=== PATIENT | male | born 1935 | race Caucasian/White ===

== ENCOUNTER → 2016-05-23 | Outpatient (CLI) | payer MEDICARE ==
[2016-05-23 07:11] LABS: Calcium 9.6 mg/dL (8.4-10.2); Potassium 4.9 mmol/L (3.5-5.1); Total Bilirubin 0.8 mg/dL (0.2-1.3); Total Protein 7.4 g/dL (6.3-8.2)
== END | disposition home or self-care (01) ==
LOC: LABWHC1 06:30
PROVIDERS: ATTEND Internal Medicine Interventional Cardiology
DX: E78.2 Mixed hyperlipidemia (principal)
CPT/HCPCS: 36415; 80053; 80061

== ENCOUNTER 2017-01-09 06:31 | Day surgery (SDC) | payer MEDICARE ==
[2017-01-02 15:39] VITALS: BMI 25.7
[~2017-01-09 06:31] MED LIST: DEXAMETHASONE SOD PHOSPHATE 10 MG/ML 1 ML VIAL IV ONE; HEPARIN SODIUM,PORCINE 5,000 UNIT/ML 1 ML VIAL SQ ONE; HYDROmorphone 0.5 MG/0.5 ML SYRINGE IVP PRN; HYDROmorphone 1 MG/ML 1 ML SYRINGE IVP PRN; LACTATED RINGERS 1,000 ML IV SCH; LIDOCAINE 1% 20 ML VIAL (10MG/ML) FOR IV START INTRADERMA PRN; ONDANSETRON 4 MG/2 ML VIAL IVP ONE; ceFAZolin 2 GM in SODIUM CHLORIDE 0.9% 100 ML IVPB ONE
[2017-01-09] MEDS ORDERED: LIDOCAINE 1% 20 ML VIAL (10MG/ML) FOR IV START INTRADERMA ONE (07:20)
[2017-01-09] MEDS ORDERED: MIDAZOLAM 2 MG/2 ML VIAL ONE (08:16)
[2017-01-09] MEDS ORDERED: ePHEDrine SULFATE/0.9% NACL/PF 50 MG/5 ML SYRINGE IV ONE (08:16)
[2017-01-09] MEDS ORDERED: SUCCINYLCHOLINE CHLORIDE 100 MG/5 ML SYR IV ONE (08:16)
[2017-01-09] MEDS ORDERED: PROPOFOL 10 MG/ML 20 ML VIAL IV ONE (08:16)
[2017-01-09] MEDS ORDERED: fentaNYL (PF) 50 MCG/ML 2 ML AMP ONE (08:16)
[2017-01-09] MEDS ORDERED: BUPIVACAINE (PF) 0.25% 30 ML VIAL SQ ONE ×2 (08:43→09:35)
[2017-01-09] MEDS ORDERED: LACTATED RINGERS 1,000 ML IV ONE (09:35)
[2017-01-09 09:54] VITALS: TEMP 96.8
[2017-01-09] MEDS ORDERED: ONDANSETRON 4 MG/2 ML VIAL IVP ONE (09:54)
[2017-01-09] MEDS ORDERED: NALOXONE 0.4 MG/ML 1 ML VIAL IV PRN (09:58)
[2017-01-09] MEDS ORDERED: HYDROcodone/APAP 5-325MG 1 EACH TAB PO PRN (09:58)
--- NOTE | 2017-01-09 10:01 | P.OP ---
Date of Procedure: 01/09/17 Procedure(s) Performed: PREOPERATIVE DIAGNOSIS: Left inguinal hernia POSTOPERATIVE DIAGNOSIS: Same PROCEDURE: Left inguinal hernia repair with mesh SURGEON: Jaylen EBL: Minimal ANESTHESIA: General COMPLICATIONS: None OPERATIVE PROCEDURE: Patient was placed in the operating table in the supine position and placed under general anesthesia. An oblique incision was made in the left groin. Dissection down through the subcutaneous tissues took place using electrocautery. The external oblique fascia was incised using a scalpel. This opening was lengthened using the Metzenbaum scissors. The spermatic cord was encircled with a Jewel drain. The structures were identified and preserved. Careful dissection revealed an indirect hernia sac. This was carefully dissected back to the internal inguinal ring. The patient also had 2 lipomas that were dissected back to the internal ring and ligated. The hernia sac was opened. This was a sliding hernia with the sigmoid colon adherent to the wall. This was able to be lysed using sharp dissection and reduced back into the peritoneal cavity. At that time the hernia sac was ligated using 2 separate 0 silk stick tie sutures. A 3" x 6" Prolene mesh was cut to fit on the exposed fascia. This was sutured to the pubic tubercle the folding edge of the inguinal ligament and the conjoined tendon. A slit was created in the mesh and the mesh was wrapped around the spermatic cord and sutured back to itself. The external oblique was then reapproximated using a running 2-0 Vicryl suture. The subcutaneous tissues were reapproximated using a 3-0 Vicryl sutures. The skin was closed using 4-0 Monocryl sutures. Steri-Strips and sterile dressings were then applied. DISPOSITION: Stable to recovery room
[2017-01-09] MEDS ORDERED: HYDROcodone/APAP 5-325MG 1 EACH TAB PO ONE (11:03)
[2017-01-09 11:23] VITALS: RESP 18
[2017-01-09 12:38] VITALS: BP 150/70; PULSE 74
== END 2017-01-09 12:36 | disposition home or self-care (01) ==
LOC: OR 06:31
PROVIDERS: ATTEND Surgery
DX: K40.90 Unilateral inguinal hernia, without obstruction or gangrene, not specified as recurrent (principal); D17.6 Benign lipomatous neoplasm of spermatic cord; Z72.0 Tobacco use; E55.9 Vitamin D deficiency, unspecified; I13.10 Hypertensive heart and chronic kidney disease without heart failure, with stage 1 through stage 4 chronic kidney disease, or unspecified chronic kidney disease; N18.9 Chronic kidney disease, unspecified; J44.9 Chronic obstructive pulmonary disease, unspecified; E78.5 Hyperlipidemia, unspecified; Z95.5 Presence of coronary angioplasty implant and graft; Z79.899 Other long term (current) drug therapy
CPT/HCPCS: 88302; 49525; 55520; C1781; J2250; J1644; J1100; J0690; J2405; J3010; J0330; J2704

== ENCOUNTER → 2017-02-06 | Outpatient (CLI) | payer MEDICARE ==
[2017-02-06 07:48] LABS: Calcium 9.6 mg/dL (8.4-10.2); Potassium 4.8 mmol/L (3.5-5.1); Total Bilirubin 0.7 mg/dL (0.2-1.3); Total Protein 7.1 g/dL (6.3-8.2)
== END | disposition home or self-care (01) ==
LOC: LABWHC1 06:41
PROVIDERS: ATTEND Internal Medicine Interventional Cardiology
DX: E78.2 Mixed hyperlipidemia (principal)
CPT/HCPCS: 36415; 80053; 80061

== ENCOUNTER → 2017-11-26 | Outpatient (CLI) | payer MEDICARE ==
[2017-11-26 07:46] LABS: Albumin 4.4 g/dL (3.5-5.0); Calcium 9.6 mg/dL (8.4-10.2); Potassium 4.6 mmol/L (3.5-5.1); Total Bilirubin 0.7 mg/dL (0.2-1.3); Total Protein 6.8 g/dL (6.3-8.2)
== END | disposition home or self-care (01) ==
LOC: LABWHC1 06:36
PROVIDERS: ATTEND Internal Medicine Interventional Cardiology
DX: E78.2 Mixed hyperlipidemia (principal)
CPT/HCPCS: 36415; 80053; 80061

== ENCOUNTER → 2018-07-23 | Outpatient (CLI) | payer MEDICARE ==
[2018-07-23 12:07] LABS: Albumin 4.5 g/dL (3.80-4.90); Albumin/Globulin Ratio 2.14 (1.60-3.17); Anion Gap 9.5 mmol/L (4.00-12.00); Calcium 9.7 mg/dL (8.7-10.3); Carbon Dioxide 24.5 mmol/L (21.6-31.8); Globulin 2.1 g/dL (1.6-3.3); LDL Cholesterol,Calculated 58.4 mg/dL (0.0-131.0); Potassium 4.7 mmol/L (3.5-5.5); Total Bilirubin 0.5 mg/dL (0.3-1.2); Total Protein 6.6 g/dL (6.2-8.2); VLDL Calculation 14.6 mg/dL (5.00-40.00)
== END ==
LOC: LABWHC1 06:47
PROVIDERS: ATTEND Internal Medicine Interventional Cardiology
DX: E78.2 Mixed hyperlipidemia (principal)
CPT/HCPCS: 36415; 80053; 80061

== ENCOUNTER → 2019-02-03 | Outpatient (CLI) | payer MEDICARE ==
[2019-02-03 12:03] LABS: African American GFR (CKD) 53.1 (60.0-200.0); Albumin 4.7 g/dL (3.80-4.90); Albumin/Globulin Ratio 2.24 (1.60-3.17); Anion Gap 13.4 mmol/L (4.00-12.00); BUN/Creat Ratio 21.43 Ratio (12.00-20.00); Carbon Dioxide 25.6 mmol/L (21.6-31.8); Chol/HDL Ratio 2.13; Globulin 2.1 g/dL (1.6-3.3); LDL Cholesterol,Calculated 57.6 mg/dL (0.0-131.0); Potassium 5.1 mmol/L (3.5-5.5); Total Bilirubin 0.6 mg/dL (0.2-1.2); Total Protein 6.8 g/dL (6.2-8.2); VLDL Calculation 19.4 mg/dL (5.00-40.00)
== END | disposition home or self-care (01) ==
LOC: LABWHC1 06:30
PROVIDERS: ATTEND Internal Medicine Interventional Cardiology
DX: E78.2 Mixed hyperlipidemia (principal)
CPT/HCPCS: 36415; 80053; 80061

== ENCOUNTER → 2021-03-01 | Outpatient (CLI) | payer MEDICARE ==
[2021-03-01 12:50] LABS: ALT 13 U/L (10-49); AST 19 U/L (14-35); African American GFR (CKD) 48.2 (60.0-200.0); Albumin 4.6 g/dL (3.8-4.9); Albumin/Globulin Ratio 2.09 (1.60-3.17); Alkaline Phosphatase 52 U/L (41-126); Blood Urea Nitrogen 33.3 mg/dL (9.0-27.0); Calcium 9.8 mg/dL (8.7-10.3); Carbon Dioxide 23.4 mmol/L (21.6-31.8); Chloride 96 mmol/L (96-109); Chol/HDL Ratio 1.78 Ratio; Globulin 2.2 g/dL (1.6-3.3); Glucose 93 mg/dL (70-110); LDL Cholesterol,Calculated 50.4 mg/dL (0.0-131.0); Non-African American GFR(CKD) 41.6 (60.0-200.0); Sodium 131 mmol/L (135-145); Total Protein 6.8 g/dL (6.2-8.2); VLDL Calculation 14.32 mg/dL (5.00-40.00)
== END | disposition home or self-care (01) ==
LOC: LABWHC1 07:22
PROVIDERS: ATTEND Internal Medicine Interventional Cardiology
DX: E78.2 Mixed hyperlipidemia (principal)
CPT/HCPCS: 36415; 80053; 80061

== ENCOUNTER → 2021-09-22 | Outpatient (CLI) | payer MEDICARE ==
[2021-09-22 14:40] LABS: ALT 16 U/L (10-49); AST 21 U/L (14-35); African American GFR (CKD) 45.6 (60.0-200.0); Albumin 4.9 g/dL (3.8-4.9); Albumin/Globulin Ratio 1.99 (1.60-3.17); Alkaline Phosphatase 57 U/L (41-126); BUN/Creat Ratio 22.12 Ratio (12.00-20.00); Blood Urea Nitrogen 34.5 mg/dL (9.0-27.0); Calcium 10.1 mg/dL (8.7-10.3); Carbon Dioxide 24.5 mmol/L (20.0-27.5); Chloride 99 mmol/L (96-109); Chol/HDL Ratio 2.25 Ratio; Globulin 2.4 g/dL (1.6-3.3); Glucose 95 mg/dL (70-110); LDL Cholesterol,Calculated 73.4 mg/dL (0.0-131.0); Non-African American GFR(CKD) 39.4 (60.0-200.0); Potassium 5.1 mmol/L (3.5-5.5); Sodium 136 mmol/L (135-145); Total Protein 7.3 g/dL (6.2-8.2); VLDL Calculation 17.82 mg/dL (5.00-40.00)
== END | disposition home or self-care (01) ==
LOC: LABWHC1 06:58
PROVIDERS: ATTEND Internal Medicine Interventional Cardiology
DX: E78.2 Mixed hyperlipidemia (principal)
CPT/HCPCS: 36415; 80053; 80061

== ENCOUNTER 2021-11-23 18:02 | Inpatient (IN) | payer MEDICARE ==
[2021-11-23 18:49] LABS: HCT 41.1 % (39.0-53.0); HGB 13.5 gm/dL (13.0-17.5); MCH 28.2 pg (25.0-35.0); MCHC 32.7 g/dL (31.0-37.0); Mean Platelet Volume 7.8; Platelet Count 158 k/uL (150-450); RBC 4.78 m/uL (4.30-5.90); RDW 13.8 % (11.5-15.5); WBC 6.1 k/uL (3.8-10.6)
[2021-11-23 18:57] LABS: Appearance,Urine Clear (Clear); Bilirubin,Urine Negative (Negative); Blood,Urine Large (Negative); Color,Urine Light Yellow; Glucose,Urine (UA) Negative (Negative); Ketones,Urine Trace (Negative); Leukocyte Esterase,Urine Negative (Negative); Nitrite,Urine Negative (Negative); PH, Urine 5.5 (5.0-8.0); Protein,Urine 1+ (Negative); RBC,Urine 1 /hpf (0-5); Urobilinogen,Urine <2.0 mg/dL (<2.0); WBC,Urine <1 /hpf (0-5)
[2021-11-23 18:59] LABS: Albumin 4.1 g/dL (3.5-5.0); Calcium 8.9 mg/dL (8.4-10.2); Magnesium 1.5 mg/dL (1.6-2.3); Potassium 4.1 mmol/L (3.5-5.1); Total Bilirubin 0.5 mg/dL (0.2-1.3); Total Protein 6.5 g/dL (6.3-8.2)
[2021-11-23 19:08] LABS: Partial Thromboplastin Time 30.6 sec (22.0-30.0); Prothrombin Time 10.5 sec (9.0-12.0)
--- NOTE | 2021-11-23 19:15 | XR ---
EXAMINATION TYPE: XR chest 2V DATE OF EXAM: 11/23/2021 COMPARISON: 10/29/2014 HISTORY: Chest pain and weakness TECHNIQUE: Frontal and lateral views of the chest are obtained. FINDINGS: There is no focal air space opacity, pleural effusion, or pneumothorax seen. The cardiac silhouette size is within normal limits. The osseous structures are intact. IMPRESSION: No acute cardiopulmonary process.
--- NOTE | 2021-11-23 19:20 | ED ---
General Adult HPI - General Chief complaint: Fall Stated complaint: Weakness Time Seen by Provider: 11/23/21 18:15 Source: patient, RN notes reviewed, old records reviewed Mode of arrival: ambulatory Limitations: no limitations - History of Present Illness Initial comments: This is an 86-year-old male who presents emergency department stating that he amaya s been unable to stand today he thought it was his knees but he also feels extremely weak. Patient states on the way and EMS told he had a fibrillation somebody is never had in the past. Patient states he is unable to get around in the house and he doesn't have much help with his has cold. Patient denies any cold symptoms himself. Patient denies any chest pain palpitations difficulty breathing shortest breath per patient denies any fever chills or cough per patient denies any abdominal pain patient denies nausea or vomiting. Patient states currently lying about his knees don't feel that bad but he is unable to stand because he feels so weak. - Related Data Home Medications Medication Instructions Recorded Confirmed Aspirin EC [Ecotrin] 81 mg PO DAILY 09/11/14 01/09/17 Gabapentin [Neurontin] 300 mg PO HS 09/11/14 01/09/17 Lisinopril-Hctz 20-12.5 mg 1 each PO BID 09/11/14 01/09/17 [Zestoretic 20-12.5] Simvastatin [Zocor] 20 mg PO HS 09/11/14 01/09/17 Latanoprost Ophth [Xalatan 0.005%] 1 drops BOTH EYES HS 01/02/17 01/09/17 Naproxen Sodium [Aleve] 220 mg PO QAM 01/02/17 01/09/17 Previous Rx's Medication Instructions Recorded Hydrocodone/Acetaminophen [[place] 1 - 2 each PO Q4HR PRN #20 tab 01/09/17 5-325] Allergies Allergy/AdvReac Type Severity Reaction Status Date / Time No Known Allergies Allergy Verified 11/23/21 18:14 Review of Systems ROS Statement: Those systems with pertinent positive or pertinent negative responses have been documented in the HPI. ROS Other: All systems not noted in ROS Statement are negative. Past Medical History Past Medical History: Coronary Artery Disease (CAD), Hyperlipidemia, Hypertension Additional Past Medical History / Comment(s): arthritis in back, History of Any Multi-Drug Resistant Organisms: None Reported Past Surgical History: Heart Catheterization, Hernia Repair, Tonsillectomy Additional Past Surgical History / Comment(s): colonoscopy, iban cataracts, wisdom teeth Past Anesthesia/Blood Transfusion Reactions: No Reported Reaction Past Psychological History: No Psychological Hx Reported Smoking Status: Current every day smoker Past Alcohol Use History: Daily Past Drug Use History: None Reported - Past Family History Father Family Medical History: Cancer Additional Family Medical History / Comment(s): ca of lymph nodes General Exam - General Exam Comments Initial Comments: GENERAL: Patient is well-developed and well-nourished. Patient is nontoxic and well- hydrated and is in no acute distress. ENT: Neck is soft and supple. No significant lymphadenopathy is noted. Oropharynx is clear. Moist mucous membranes. Neck has full range of motion without eliciting any pain. EYES: The sclera were anicteric and conjunctiva were pink and moist. Extraocular movements were intact and pupils were equal round and reactive to light. Eyelids were unremarkable. PULMONARY: Unlabored respirations. Good breath sounds bilaterally. No audible rales rhonchi or wheezing was noted. CARDIOVASCULAR: Patient has an irregular rate and rhythm ABDOMEN: Soft and nontender with normal bowel sounds. SKIN: Skin is clear with no lesions or rashes and otherwise unremarkable. NEUROLOGIC: Patient is alert and oriented x3. Cranial nerves II through XII are grossly intact. Motor and sensory are also intact. Normal speech, volume and content. Symmetrical smile. MUSCULOSKELETAL: Normal extremities with adequate strength and full range of motion. No lower extremity swelling or edema. No calf tenderness. LYMPHATICS: No significant lymphadenopathy is noted PSYCHIATRIC: Normal psychiatric evaluation. Limitations: no limitations Course Vital Signs 11/23/21 18:06 Pulse Rate 93 Respiratory 16 Rate Blood Pressure 134/91 O2 Sat by Pulse 97 Oximetry Medical Decision Making - Medical Decision Making EKG shows A. fib at 88 bpm QRS 134 QT interval 397 QTC is 443. Patient's EKG shows no ST segment elevation or depression. Patient has left bundle branch block. Patient is COVID positive. Patient has new-onset atrial flutter. Patient's bite is 1.5 sodium was 128. Chest x-ray shows no acute abnormality. - Lab Data Result diagrams: 11/23/21 18:35 11/23/21 18:35 Lab Results 11/23/21 11/23/21 11/23/21 Range/Units 18:35 18:35 18:35 WBC 6.1 (3.8-10.6) k/uL RBC 4.78 (4.30-5.90) m/uL Hgb 13.5 (13.0-17.5) gm/dL Hct 41.1 (39.0-53.0) % MCV 86.0 (80.0-100.0) fL MCH 28.2 (25.0-35.0) pg MCHC 32.7 (31.0-37.0) g/dL RDW 13.8 (11.5-15.5) % Plt Count 158 (150-450) k/uL MPV 7.8 Neutrophils % (Manual) 56 % Lymphocytes % (Manual) 18 % Monocytes % (Manual) 26 % Neutrophils # (Manual) 3.42 (1.3-7.7) k/uL Lymphocytes # (Manual) 1.10 (1.0-4.8) k/uL Monocytes # (Manual) 1.59 H (0-1.0) k/uL Nucleated RBCs 0 (0-0) /100 WBC Manual Slide Review Performed RBC Morphology Normal PT 10.5 (9.0-12.0) sec INR 1.0 (<1.2) APTT 30.6 H (22.0-30.0) sec Sodium (137-145) mmol/L Potassium (3.5-5.1) mmol/L Chloride (98-107) mmol/L Carbon Dioxide (22-30) mmol/L Anion Gap mmol/L BUN (9-20) mg/dL Creatinine (0.66-1.25) mg/dL Est GFR (CKD-EPI)AfAm (>60 ml/min/1.73 sqM) Est GFR (CKD-EPI)NonAf (>60 ml/min/1.73 sqM) Glucose (74-99) mg/dL Calcium (8.4-10.2) mg/dL Magnesium (1.6-2.3) mg/dL Total Bilirubin (0.2-1.3) mg/dL AST (17-59) U/L ALT (4-49) U/L Alkaline Phosphatase (38-126) U/L Troponin I (0.000-0.034) ng/mL Total Protein (6.3-8.2) g/dL Albumin (3.5-5.0) g/dL Urine Color Light Yellow Urine Appearance Clear (Clear) Urine pH 5.5 (5.0-8.0) Ur Specific [place] 1.010 (1.001-1.035) Urine Protein 1+ H (Negative) Urine Glucose (UA) Negative (Negative) Urine Ketones Trace H (Negative) Urine Blood Large H (Negative) Urine Nitrite Negative (Negative) Urine Bilirubin Negative (Negative) Urine Urobilinogen <2.0 (<2.0) mg/dL Ur Leukocyte Esterase Negative (Negative) Urine RBC 1 (0-5) /hpf Urine WBC <1 (0-5) /hpf Coronavirus (PCR) (Not Detectd) 11/23/21 11/23/21 11/23/21 Range/Units 18:35 18:35 18:35 WBC (3.8-10.6) k/uL RBC (4.30-5.90) m/uL Hgb (13.0-17.5) gm/dL Hct (39.0-53.0) % MCV (80.0-100.0) fL MCH (25.0-35.0) pg MCHC (31.0-37.0) g/dL RDW (11.5-15.5) % Plt Count (150-450) k/uL MPV Neutrophils % (Manual) % Lymphocytes % (Manual) % Monocytes % (Manual) % Neutrophils # (Manual) (1.3-7.7) k/uL Lymphocytes # (Manual) (1.0-4.8) k/uL Monocytes # (Manual) (0-1.0) k/uL Nucleated RBCs (0-0) /100 WBC Manual Slide Review RBC Morphology PT (9.0-12.0) sec INR (<1.2) APTT (22.0-30.0) sec Sodium 128 L (137-145) mmol/L Potassium 4.1 (3.5-5.1) mmol/L Chloride 93 L (98-107) mmol/L Carbon Dioxide 21 L (22-30) mmol/L Anion Gap 14 mmol/L BUN 37 H (9-20) mg/dL Creatinine 1.43 H (0.66-1.25) mg/dL Est GFR (CKD-EPI)AfAm 51 (>60 ml/min/1.73 sqM) Est GFR (CKD-EPI)NonAf 44 (>60 ml/min/1.73 sqM) Glucose 92 (74-99) mg/dL Calcium 8.9 (8.4-10.2) mg/dL Magnesium 1.5 L (1.6-2.3) mg/dL Total Bilirubin 0.5 (0.2-1.3) mg/dL AST 76 H (17-59) U/L ALT 22 (4-49) U/L Alkaline Phosphatase 54 (38-126) U/L Troponin I 0.022 (0.000-0.034) ng/mL Total Protein 6.5 (6.3-8.2) g/dL Albumin 4.1 (3.5-5.0) g/dL Urine Color Urine Appearance (Clear) Urine pH (5.0-8.0) Ur Specific [place] (1.001-1.035) Urine Protein (Negative) Urine Glucose (UA) (Negative) Urine Ketones (Negative) Urine Blood (Negative) Urine Nitrite (Negative) Urine Bilirubin (Negative) Urine Urobilinogen (<2.0) mg/dL Ur Leukocyte Esterase (Negative) Urine RBC (0-5) /hpf Urine WBC (0-5) /hpf Coronavirus (PCR) Detected A (Not Detectd) Disposition Clinical Impression: COVID, Hypomagnesemia, Hyponatremia, New onset a-fib Disposition: ADMITTED IP TO THIS HOSP Referrals: Saturnino Espinoza MD [Primary Care Provider] - 1-2 days Time of Disposition: 19:55
[2021-11-23 19:29] LABS: Monocytes # (M) 1.59 k/uL (0-1.0); Neutrophils # (M) 3.42 k/uL (1.3-7.7); Neutrophils % (M) 56 %; Nucleated Red Blood Cells 0 /100 WBC (0-0); Total Cells Counted 100
[2021-11-23 19:31] LABS: RBC Morphology Normal
[2021-11-23] MEDS ORDERED: SODIUM CHLORIDE 0.9% 500 ML 500 ML IV ONE (19:56)
[2021-11-23] MEDS ORDERED: MAGNESIUM SULFATE-D5W PMX 1 GM in DEXTROSE/WATER 1 100ML.BAG IVPB ONE (19:56)
[2021-11-23] MEDS ORDERED: SODIUM CHLORIDE 0.9% 1,000 ML IV ONE (19:57)
[2021-11-23] MEDS ORDERED: HEPARIN SODIUM 1,000 UN/ML (10ML VL) IV ONE (19:57)
[2021-11-23] MEDS ORDERED: HEPARIN SOD,PORK IN 0.45% NACL 25,000 UNIT in 0.45% NACL 1 250ML.BAG IV SCH (20:00)
[2021-11-24 04:07] LABS: Appearance,Urine Clear (Clear); Bilirubin,Urine Negative (Negative); Blood,Urine Moderate (Negative); Color,Urine Colorless; Glucose,Urine (UA) Negative (Negative); Ketones,Urine Negative (Negative); Leukocyte Esterase,Urine Negative (Negative); Nitrite,Urine Negative (Negative); Protein,Urine Trace (Negative); RBC,Urine 1 /hpf (0-5); Specific Gravity,Urine 1.007 (1.001-1.035); Urobilinogen,Urine <2.0 mg/dL (<2.0); WBC,Urine <1 /hpf (0-5)
[2021-11-24 04:15] LABS: HCT 37.6 % (39.0-53.0); HGB 12.3 gm/dL (13.0-17.5); MCH 28.2 pg (25.0-35.0); MCHC 32.7 g/dL (31.0-37.0); Mean Platelet Volume 7.7; Platelet Count 151 k/uL (150-450); RBC 4.36 m/uL (4.30-5.90); RDW 13.9 % (11.5-15.5); WBC 4.3 k/uL (3.8-10.6)
[2021-11-24 04:36] LABS: Large Platelets Present; Lymphocytes # (M) 0.86 k/uL (1.0-4.8); Monocytes # (M) 0.82 k/uL (0-1.0); Neutrophils # (M) 2.62 k/uL (1.3-7.7); Neutrophils % (M) 61 %; Nucleated Red Blood Cells 0 /100 WBC (0-0); Total Cells Counted 100
[2021-11-24 04:53] LABS: ALT 24 U/L (4-49); AST 90 U/L (17-59); African American GFR (CKD) 56 (>60 ml/min/1.73 sqM); Albumin 3.4 g/dL (3.5-5.0); Alkaline Phosphatase 49 U/L (38-126); Anion Gap 11 mmol/L; Bilirubin, Delta 0.2 mg/dL (0.0-0.2); Bilirubin,Unconjugated 0.2 mg/dL (0.0-1.1); Blood Urea Nitrogen 35 mg/dL (9-20); Calcium 8.6 mg/dL (8.4-10.2); Carbon Dioxide 22 mmol/L (22-30); Chloride 94 mmol/L (98-107); Glucose 70 mg/dL (74-99); Magnesium 1.7 mg/dL (1.6-2.3); Non-African American GFR(CKD) 48 (>60 ml/min/1.73 sqM); Potassium 3.8 mmol/L (3.5-5.1); Sodium 127 mmol/L (137-145); Total Bilirubin 0.4 mg/dL (0.2-1.3); Total Protein 5.8 g/dL (6.3-8.2)
[2021-11-24 05:50] LABS: T4, Free (Free Thyroxine) 1.57 ng/dL (0.78-2.19)
[2021-11-24] MEDS ORDERED: FAMOTIDINE 20 MG/2 ML VIAL IV SCH (09:00)
--- NOTE | 2021-11-24 09:28 | P.HPIM ---
History of Present Illness This is a pleasant 86 years old male with past medical history of hypertension, hyperlipidemia, coronary artery disease, nicotine dependence , Place and Patient states he was walking his home when he fell weak in his legs and he has to lay down on the floor, he denies hitting his head or any part of his body and he denies any headache or current pain symptoms. As per report patient has difficulty standing up from lying position and was called EMS for him. Patient however denies any chest pain or dyspnea although he has some dry cough, he is current smoker about half-1 pack per day and he was counseled but declines to quit and declines nicotine patch. Also he drinks 2-3 beers a day but no liquor He has some urgency Which is recent but no dysuria, he has increased frequency. Patient denies hematuria but there was blood in his urine analysis. No suprapubic pain or tenderness or flank pain. He has some loose bowel movement today, No Nausea Vomiting but Has No Appetite over the Last 2 Days numbness. no syncope. patient states that he has left knee problems and he follow-up with orthopedic team and [employer] Paige, he states that he takes Aleve for many years once a day and sometimes twice a day if needed. Patient's vital signs stable CBC is unremarkable, INR is normal. Sodium 128, repeat sodium is 127 Creatinine elevated at 1.4. At baseline of 1.4-1.6 Magnesium 1.5 Bilirubin normal, AST slightly elevated at 76, ALT normal 22. Troponin is negative at 0.02. Urine analysis showed large blood but 1 unit RBCs Coronavirus detected EKG: Atrial fibrillation with rate of 88, left bundle branch block Chest x-ray: No acute process In the emergency room and received normal saline at 75 mL/h besides the normal saline bullous. He was started on Heparin drip and magnesium. [facility] consulted for A. fib TSH 0.40-54 normal 1.5. At home he was on lisinopril-hydrochlorothiazide 20-12.5 mg Past Medical History Past Medical History: Coronary Artery Disease (CAD), Hyperlipidemia, Hypertension Additional Past Medical History / Comment(s): arthritis in back, cataracts History of Any Multi-Drug Resistant Organisms: None Reported Past Surgical History: Heart Catheterization, Hernia Repair, Tonsillectomy Additional Past Surgical History / Comment(s): colonoscopy, iban cataracts, wisdom teeth Past Anesthesia/Blood Transfusion Reactions: No Reported Reaction Past Psychological History: No Psychological Hx Reported Smoking Status: Current every day smoker Past Alcohol Use History: Daily Additional Past Alcohol Use History / Comment(s): smokes 1/2-1PPD, started smoking age 15. 2-3 beers daily Past Drug Use History: None Reported - Past Family History Father Family Medical History: Cancer Additional Family Medical History / Comment(s): ca of lymph nodes Medications and Allergies Home Medications Medication Instructions Recorded Confirmed Type Aspirin EC [Ecotrin] 81 mg PO DAILY 09/11/14 11/23/21 History Lisinopril-Hctz 20-12.5 mg 1 tab PO BID 09/11/14 11/23/21 History [Zestoretic 20-12.5] Simvastatin [Zocor] 20 mg PO HS 09/11/14 11/23/21 History Latanoprost Ophth [Xalatan 0.005%] 1 drops BOTH EYES HS 01/02/17 11/23/21 History Naproxen Sodium [Aleve] 220 mg PO BID PRN 01/02/17 11/23/21 History guaiFENesin [guaiFENesin Oral 200 - 400 mg PO HS PRN 11/23/21 11/23/21 History Solution] Allergies Allergy/AdvReac Type Severity Reaction Status Date / Time No Known Allergies Allergy Verified 11/23/21 20:50 Physical Exam Vitals: Vital Signs Temp Pulse Pulse Resp BP BP Pulse Ox 11/24/21 03:25 98 F 58 L 17 120/64 94 L 11/23/21 22:10 98.3 F 83 17 145/63 98 11/23/21 22:01 80 18 114/69 98 11/23/21 20:54 80 16 112/72 97 11/23/21 18:06 93 16 134/91 97 Intake and Output 11/23/21 11/24/21 11/24/21 22:59 06:59 14:59 Intake Total 75.883 Output Total 300 Balance -300 75.883 Intake: Intake, IV Titration 75.883 Amount Heparin Sod,Pork in 0.45% 75.883 NaCl 25,000 unit In 0.45 % NaCl 1 250ml.bag @ 12 UNITS/KG/HR 9.525 mls/hr IV .Q24H [facility] Rx#: [id number] Output: Urine 300 Other: Weight 79.379 kg -GENERAL: The patient is alert and oriented x3, not in any acute distress. Well developed, well nourished. Generally weak HEENT: Pupils are round and equally reacting to light. EOMI. No scleral icterus. No conjunctival pallor. Normocephalic, atraumatic. No pharyngeal erythema. No thyromegaly. CARDIOVASCULAR: S1 and S2 present. No murmurs, rubs, or gallops. PULMONARY: Chest is clear to auscultation, no wheezing or crackles. ABDOMEN: Soft, nontender, nondistended, normoactive bowel sounds. No palpable organomegaly. MUSCULOSKELETAL: No joint swelling or deformity. EXTREMITIES: No cyanosis, clubbing, or pedal edema. NEUROLOGICAL: Gross neurological examination did not reveal any focal deficits. SKIN: No rashes. no petechiae. Results CBC & Chem 7: 11/24/21 03:07 11/24/21 03:07 Labs: Abnormal Lab Results - Last 24 Hours (Table) 11/23/21 11/23/21 11/23/21 Range/Units 18:35 18:35 18:35 Hgb (13.0-17.5) gm/dL Hct (39.0-53.0) % Lymphocytes # (Manual) (1.0-4.8) k/uL Monocytes # (Manual) 1.59 H (0-1.0) k/uL APTT 30.6 H (22.0-30.0) sec Sodium (137-145) mmol/L Chloride (98-107) mmol/L Carbon Dioxide (22-30) mmol/L BUN (9-20) mg/dL Creatinine (0.66-1.25) mg/dL Glucose (74-99) mg/dL Magnesium (1.6-2.3) mg/dL AST (17-59) U/L Total Protein (6.3-8.2) g/dL Albumin (3.5-5.0) g/dL TSH (0.465-4.680) mIU/L Urine Protein 1+ H (Negative) Urine Ketones Trace H (Negative) Urine Blood Large H (Negative) Coronavirus (PCR) (Not Detectd) 11/23/21 11/23/21 11/24/21 Range/Units 18:35 18:35 03:07 Hgb (13.0-17.5) gm/dL Hct (39.0-53.0) % Lymphocytes # (Manual) (1.0-4.8) k/uL Monocytes # (Manual) (0-1.0) k/uL APTT >200.0 H* (22.0-30.0) sec Sodium 128 L (137-145) mmol/L Chloride 93 L (98-107) mmol/L Carbon Dioxide 21 L (22-30) mmol/L BUN 37 H (9-20) mg/dL Creatinine 1.43 H (0.66-1.25) mg/dL Glucose (74-99) mg/dL Magnesium 1.5 L (1.6-2.3) mg/dL AST 76 H (17-59) U/L Total Protein (6.3-8.2) g/dL Albumin (3.5-5.0) g/dL TSH (0.465-4.680) mIU/L Urine Protein (Negative) Urine Ketones (Negative) Urine Blood (Negative) Coronavirus (PCR) Detected A (Not Detectd) 11/24/21 11/24/21 11/24/21 Range/Units 03:07 03:07 03:13 Hgb 12.3 L (13.0-17.5) gm/dL Hct 37.6 L (39.0-53.0) % Lymphocytes # (Manual) 0.86 L (1.0-4.8) k/uL Monocytes # (Manual) (0-1.0) k/uL APTT (22.0-30.0) sec Sodium 127 L (137-145) mmol/L Chloride 94 L (98-107) mmol/L Carbon Dioxide (22-30) mmol/L BUN 35 H (9-20) mg/dL Creatinine 1.32 H (0.66-1.25) mg/dL Glucose 70 L (74-99) mg/dL Magnesium (1.6-2.3) mg/dL AST 90 H (17-59) U/L Total Protein 5.8 L (6.3-8.2) g/dL Albumin 3.4 L (3.5-5.0) g/dL TSH 0.461 L (0.465-4.680) mIU/L Urine Protein Trace H (Negative) Urine Ketones (Negative) Urine Blood Moderate H (Negative) Coronavirus (PCR) (Not Detectd) Thrombosis Risk Factor Assmnt - Choose All That Apply Any of the Below Risk Factors Present?: Yes Each Factor Represents 1 point: Medical pt on bed rest Each Risk Factor Represents 3 Points: Elevated anticardiolipin antibodies Other congenital or acquired thrombophilia - If yes, enter type in comment: No Thrombosis Risk Factor Assessment Total Risk Factor Score: 4 Thrombosis Risk Factor Assessment Level: Moderate Risk Assessment and Plan Assessment: Fall, with Generalized weakness, patient could not get up from the floor New-onset Atrial fibrillation with controlled rate Hematuria, could be related to or exacerbated by NSAID abuse Hyponatremia, could be related to hydrochlorothiazide Mild hypomagnesemia, improved Covid infection without pneumonia or hypoxia Chronic kidney disease, stage III Alcohol use disorder Nicotine dependence Hypertension hyperlipidemia History of coronary artery disease Plan: This is a pleasant 86 Male who presents with fall, hyponatremia, covid infection without pneumonia, hematuria Continue with heparin drip, cardiology consult Check a renal ultrasound Monitor sodium level, hold hydrochlorothiazide Labs and medication were reviewed.. Continue same treatment. Continue with symptomatic treatment. Resume home medication. Monitor lytes and vitals. DVT and GI prophylaxis. Further recommendations as per clinical course of the patie nt DVT prophylaxis: heparin GI Prophylaxis: Pepcid PT/OT: Pending Prognosis is guarded
--- NOTE | 2021-11-24 09:50 | US ---
EXAMINATION TYPE: US renals and bladder DATE OF EXAM: 11/24/2021 COMPARISON: NONE CLINICAL HISTORY: Hematuria. EXAM MEASUREMENTS: Right Kidney: 9.5 x 4.9 x 4.7 cm Left Kidney: 10.4 x 6.3 x 5.1 cm Right Kidney: No hydronephrosis or masses seen Left Kidney: No hydronephrosis or masses seen Bladder: wnl Bilateral Jets seen: Yes There is no evidence for hydronephrosis at this point in time. No nephrolithiasis is seen. No juan s are identified. The urinary bladder is anechoic. Bilateral ureteral jets are seen. IMPRESSION: No distinct abnormality seen.
[2021-11-24] MEDS: METOPROLOL TARTRATE 12.5 MG TAB PO SCH ×2 (10:58→22:53)
[2021-11-24] MEDS: APIXABAN 5 MG TAB PO SCH ×2 (10:58→20:19)
[2021-11-24] MEDS: THIAMINE 100 MG TAB PO SCH (10:58)
--- NOTE | 2021-11-24 11:56 | P.CRDCN ---
History of Present Illness Consult date: 11/24/21 History of present illness: CHIEF COMPLAINT: A. fib with RVR HISTORY OF PRESENT ILLNESS: This is a 86-year-old male with a past medical history significant for mild coronary artery disease, hypertension, hyperlipidemia, and nonischemic cardiomyopathy. Patient follows in the office with Dr. Perales. We have been asked to see the patient in consultation for atrial fibrillation with RVR. Patient examined at the bedside. Patient presented to the hospital with a chief complaint of generalized weakness. The patient was found to be positive for Covid. He reports his and his daughter are positive for Covid as well. P atient denies any chest pain or pressure. He denies any shortness of breath. The patient was found to be in atrial fibrillation. The patient denies a history of atrial fibrillation. The patient is maintaining sinus mechanism this morning at the time of my examination. The patient has been started on IV heparin. * EKG reveals atrial fibrillation with controlled ventricular rate. Left bundle-branch block which is not new * Chest xray negative for acute process * Laboratory data: WBC 4.3. Hemoglobin 12.3. Platelet count 151. Sodium 127. Potassium 3.8. BUN 35. Creatinine 1.32. Troponin negative 1. TSH 0.461. Free T4 1 0.57. * Current home cardiac medications include Zestoretic 20-12.5mg BID and aspirin 81 mg daily * Most recent echocardiogram obtained in January 2021 revealed ejection fraction 47%, mild TR, mild MR REVIEW OF SYSTEMS: Thorough review of systems not completed secondary to limited evaluation/examination due to Covid19 PHYSICAL EXAM: Thorough physical exam not completed secondary to limited evaluation/examination due to Covid19 ASSESSMENT: Acute COVID-19 infection New-onset paroxysmal atrial fibrillation, currently maintaining sinus mechanism History of nonischemic cardiomyopathy Mild CAD per cardiac catheterization in 2006 Hypertension Hyperlipidemia Chronic kidney disease Hyponatremia PLAN: No need to obtain echocardiogram at this time Begin Eliquis 5 mg twice a day Case management consulted for insurance co-pay Begin metoprolol 12.5 mg twice a day Continue lisinopril at a lower dose of 10 mg daily. Monitor blood pressure Hold hydrochlorothiazide secondary to hyponatremia Further recommendations pending patient's course Nurse practitioner note has been reviewed by physician. Signing provider agrees with the documented findings, assessment, and plan of care. Past Medical History Past Medical History: Coronary Artery Disease (CAD), Hyperlipidemia, Hypertension Additional Past Medical History / Comment(s): arthritis in back, cataracts History of Any Multi-Drug Resistant Organisms: None Reported Past Surgical History: Heart Catheterization, Hernia Repair, Tonsillectomy Additional Past Surgical History / Comment(s): colonoscopy, iban cataracts, wisdom teeth Past Anesthesia/Blood Transfusion Reactions: No Reported Reaction Past Psychological History: No Psychological Hx Reported Smoking Status: Current every day smoker Past Alcohol Use History: Daily Additional Past Alcohol Use History / Comment(s): smokes 1/2-1PPD, started smoking age 15. 2-3 beers daily Past Drug Use History: None Reported - Past Family History Father Family Medical History: Cancer Additional Family Medical History / Comment(s): ca of lymph nodes Medications and Allergies Home Medications Medication Instructions Recorded Confirmed Type Aspirin EC [Ecotrin] 81 mg PO DAILY 09/11/14 11/23/21 History Lisinopril-Hctz 20-12.5 mg 1 tab PO BID 09/11/14 11/23/21 History [Zestoretic 20-12.5] Simvastatin [Zocor] 20 mg PO HS 09/11/14 11/23/21 History Latanoprost Ophth [Xalatan 0.005%] 1 drops BOTH EYES HS 01/02/17 11/23/21 History Naproxen Sodium [Aleve] 220 mg PO BID PRN 01/02/17 11/23/21 History guaiFENesin [guaiFENesin Oral 200 - 400 mg PO HS PRN 11/23/21 11/23/21 History Solution] Apixaban [Eliquis] 5 mg PO BID #60 tab 11/24/21 Rx Allergies Allergy/AdvReac Type Severity Reaction Status Date / Time No Known Allergies Allergy Verified 11/23/21 20:50 Physical Exam Vitals: Vital Signs Temp Pulse Pulse Resp BP BP Pulse Ox 11/24/21 03:25 98 F 58 L 17 120/64 94 L 11/23/21 22:10 98.3 F 83 17 145/63 98 11/23/21 22:01 80 18 114/69 98 11/23/21 20:54 80 16 112/72 97 11/23/21 18:06 93 16 134/91 97 Intake and Output 11/23/21 11/24/21 11/24/21 22:59 06:59 14:59 Intake Total 75.883 0 Output Total 300 Balance -300 75.883 0 Intake: Intake, IV Titration 75.883 Amount Heparin Sod,Pork in 0.45% 75.883 NaCl 25,000 unit In 0.45 % NaCl 1 250ml.bag @ 12 UNITS/KG/HR 9.525 mls/hr IV .Q24H [facility] Rx#: [id number] Oral 0 Output: Urine 300 Other: Weight 79.379 kg Results 11/24/21 03:07 11/24/21 03:07 Cardiac Enzymes 11/23/21 11/23/21 11/24/21 Range/Units 18:35 18:35 03:07 AST 76 H 90 H (17-59) U/L Troponin I 0.022 (0.000-0.034) ng/mL Coagulation 11/23/21 11/24/21 Range/Units 18:35 03:07 PT 10.5 (9.0-12.0) sec APTT 30.6 H >200.0 H* (22.0-30.0) sec CBC 11/23/21 11/24/21 Range/Units 18:35 03:07 WBC 6.1 4.3 (3.8-10.6) k/uL RBC 4.78 4.36 (4.30-5.90) m/uL Hgb 13.5 12.3 L (13.0-17.5) gm/dL Hct 41.1 37.6 L (39.0-53.0) % Plt Count 158 151 (150-450) k/uL Comprehensive Metabolic Panel 11/23/21 11/24/21 Range/Units 18:35 03:07 Sodium 128 L 127 L (137-145) mmol/L Potassium 4.1 3.8 (3.5-5.1) mmol/L Chloride 93 L 94 L (98-107) mmol/L Carbon Dioxide 21 L 22 (22-30) mmol/L BUN 37 H 35 H (9-20) mg/dL Creatinine 1.43 H 1.32 H (0.66-1.25) mg/dL Glucose 92 70 L (74-99) mg/dL Calcium 8.9 8.6 (8.4-10.2) mg/dL Unconjugated Bilirubin 0.2 (0.0-1.1) mg/dL AST 76 H 90 H (17-59) U/L ALT 22 24 (4-49) U/L Alkaline Phosphatase 54 49 (38-126) U/L Total Protein 6.5 5.8 L (6.3-8.2) g/dL Albumin 4.1 3.4 L (3.5-5.0) g/dL Current Medications Generic Name Dose Route Start Last Admin Trade Name Fidelina PRN Reason Stop Dose Admin Apixaban 5 mg 11/24/21 09:00 11/24/21 10:58 Apixaban 5 Mg Tab PO 5 mg BID [facility] Administration Protocol Famotidine 20 mg 11/24/21 09:00 11/24/21 10:58 Famotidine 20 Mg/2 Ml Vial IV 20 mg Q24HR [facility] Administration Latanoprost 1 drops 11/24/21 21:00 Latanoprost 0.005% Ophth Drops 2.5 Ml Btl BOTH EYES HS MARIAN Metoprolol Tartrate 12.5 mg 11/24/21 09:00 11/24/21 10:58 Metoprolol Tartrate 12.5 Mg Tab PO 12.5 mg BID MARIAN Administration Thiamine HCl 100 mg 11/24/21 09:30 11/24/21 10:58 Thiamine 100 Mg Tab PO 100 mg DAILY MARIAN Administration Intake and Output 11/23/21 11/24/21 11/24/21 22:59 06:59 14:59 Intake Total 75.883 0 Output Total 300 Balance -300 75.883 0 Intake: Intake, IV Titration 75.883 Amount Heparin Sod,Pork in 0.45% 75.883 NaCl 25,000 unit In 0.45 % NaCl 1 250ml.bag @ 12 UNITS/KG/HR 9.525 mls/hr IV .Q24H [facility] Rx#: [id number] Oral 0 Output: Urine 300 Other: Weight 79.379 kg 11/24/21 03:07 11/24/21 03:07
[2021-11-24] MEDS ORDERED: SODIUM CHLORIDE 0.9% 500 ML 500 ML IV ONE (17:30)
[2021-11-24] MEDS: LATANOPROST 0.005% OPHTH DROPS 2.5 ML BTL BOTH EYES SCH (20:19)
[2021-11-24] MEDS: SODIUM CHLORIDE 0.9% 1,000 ML IV SCH (20:20)
[2021-11-25 08:55] LABS: Albumin 3.3 g/dL (3.5-5.0); Bilirubin, Delta 0.1 mg/dL (0.0-0.2); Bilirubin,Unconjugated 0.3 mg/dL (0.0-1.1); Calcium 8.4 mg/dL (8.4-10.2); Magnesium 1.4 mg/dL (1.6-2.3); Potassium 3.9 mmol/L (3.5-5.1); Total Bilirubin 0.4 mg/dL (0.2-1.3); Total Protein 5.6 g/dL (6.3-8.2)
[2021-11-25] MEDS ORDERED: lisinopriL 10 MG TAB PO SCH (09:00)
[2021-11-25 09:02] LABS: HCT 33.7 % (39.0-53.0); HGB 11.3 gm/dL (13.0-17.5); MCH 29.2 pg (25.0-35.0); MCHC 33.5 g/dL (31.0-37.0); MCV 87.3 fL (80.0-100.0); Platelet Count 164 k/uL (150-450); RBC 3.87 m/uL (4.30-5.90); RDW 14.3 % (11.5-15.5); WBC 4.5 k/uL (3.8-10.6)
[2021-11-25 09:47] LABS: Lymphocytes # (M) 0.36 k/uL (1.0-4.8); Monocytes # (M) 0.59 k/uL (0-1.0); Neutrophils # (M) 3.56 k/uL (1.3-7.7); Neutrophils % (M) 79 %; Nucleated Red Blood Cells 0 /100 WBC (0-0); Total Cells Counted 100
[2021-11-25 09:48] LABS: Anisocytosis (M) Present; Poikilocytosis (M) Present
[2021-11-25] MEDS: APIXABAN 5 MG TAB PO SCH ×2 (10:08→20:40)
[2021-11-25] MEDS: METOPROLOL TARTRATE 12.5 MG TAB PO SCH ×2 (10:09→20:40)
[2021-11-25] MEDS: lisinopriL 5 MG TAB PO SCH (10:09)
[2021-11-25] MEDS: FAMOTIDINE 20 MG TAB PO SCH (10:09)
[2021-11-25] MEDS: THIAMINE 100 MG TAB PO SCH (10:09)
[2021-11-25] MEDS: SODIUM CHLORIDE 0.9% 1,000 ML IV SCH (10:13)
--- NOTE | 2021-11-25 12:29 | P.PN ---
Subjective This is a pleasant 86 years old male with past medical history of hypertension, hyperlipidemia, coronary artery disease, nicotine dependence , Place and Patient states he was walking his home when he fell weak in his legs and he has to lay down on the floor, he denies hitting his head or any part of his body and he denies any headache or current pain symptoms. As per report patient has difficulty standing up from lying position and was called EMS for him. Patient however denies any chest pain or dyspnea although he has some dry cough, he is current smoker about half-1 pack per day and he was counseled but declines to quit and declines nicotine patch. Also he drinks 2-3 beers a day but no liquor He has some urgency Which is recent but no dysuria, he has increased frequency. Patient denies hematuria but there was blood in his urine analysis. No suprapubic pain or tenderness or flank pain. He has some loose bowel movement today, No Nausea Vomiting but Has No Appetite over the Last 2 Days numbness. no syncope. patient states that he has left knee problems and he follow-up with orthopedic team and CREDIT CHARGE AUTHORIZER Paige, he states that he takes Aleve for many years once a day and sometimes twice a day if needed. Patient's vital signs stable CBC is unremarkable, INR is normal. Sodium 128, repeat sodium is 127 Creatinine elevated at 1.4. At baseline of 1.4-1.6 Magnesium 1.5 Bilirubin normal, AST slightly elevated at 76, ALT normal 22. Troponin is negative at 0.02. Urine analysis showed large blood but 1 unit RBCs Coronavirus detected EKG: Atrial fibrillation with rate of 88, left bundle branch block Chest x-ray: No acute process In the emergency room and received normal saline at 75 mL/h besides the normal saline bullous. He was started on Heparin drip and magnesium. Collaborating Supervising Physician consulted for A. fib TSH 0.40-54 normal 1.5. At home he was on lisinopril-hydrochlorothiazide 20-12.5 mg 11/25/2021 Patient awake comfortable lying in bed with no distress. His toe fillet generally weak after he presents with falling. It looks dehydrated and slightly hypovolemic and his hydrochlorothiazide was stopped, yesterday he was hypotensive 70/43 received a bolus of 1 L and currently he is on normal saline 50 mL/h. Blood pressure improved this morning at 104/57. At rest he was wheezing therefore Solu-Medrol this added 40 mg every 8 hours, she is current smoker since age 15. Sodium is improving up to 1:30, creatinine trending down 1.2. Renal ultrasound is negative. Aprilcalcitonin is 0.25, off the test is positive with no pneumonia. He has no significant alcohol withdrawal symptoms Collaborating Supervising Physician Marco on liquids for his A. fib, rate controlled. Bladder scan is negative at 26. Repeat urine analysis and potential started tomorrow. Repeat chest x-ray in the morning Objective - Vital Signs Vital signs: Vital Signs Temp 97.6 F 11/25/21 10:07 Pulse 63 11/25/21 10:07 Resp 17 11/25/21 10:07 BP 104/57 11/25/21 10:07 Pulse Ox 95 11/25/21 10:07 FiO2 Intake & Output 11/24/21 11/25/21 11/25/21 18:59 06:59 18:59 Intake Total 180 118 Output Total 250 200 Balance -70 -82 Intake: Oral 180 118 Output: Urine 250 200 Other: Voiding Method Toilet Toilet Toilet Urinal Urinal Urinal # Voids 1 - Exam -GENERAL: The patient is alert and oriented x3, not in any acute distress. Well developed, well nourished. Generally weak HEENT: Pupils are round and equally reacting to light. EOMI. No scleral icterus. No conjunctival pallor. Normocephalic, atraumatic. No pharyngeal erythema. No thyromegaly. CARDIOVASCULAR: S1 and S2 present. No murmurs, rubs, or gallops. -PULMONARY: Chest is clear to auscultation,bilateral expiratory wheezing ABDOMEN: Soft, nontender, nondistended, normoactive bowel sounds. No palpable organomegaly. MUSCULOSKELETAL: No joint swelling or deformity. EXTREMITIES: No cyanosis, clubbing, or pedal edema. NEUROLOGICAL: Gross neurological examination did not reveal any focal deficits. SKIN: No rashes. no petechiae. - Labs CBC & Chem 7: 11/25/21 08:14 11/25/21 08:14 Labs: Abnormal Lab Results - Last 24 Hours (Table) 11/24/21 11/25/21 11/25/21 Range/Units 11:18 08: 08:14 RBC 3.87 L (4.30-5.90) m/uL Hgb 11.3 L (13.0-17.5) gm/dL Hct 33.7 L (39.0-53.0) % Lymphocytes # (Manual) 0.36 L (1.0-4.8) k/uL APTT 76.6 H (22.0-30.0) sec Sodium 130 L (137-145) mmol/L Chloride 97 L (98-107) mmol/L BUN 31 H (9-20) mg/dL Creatinine 1.27 H (0.66-1.25) mg/dL Glucose 122 H (74-99) mg/dL Magnesium 1.4 L (1.6-2.3) mg/dL AST 64 H (17-59) U/L Total Protein 5.6 L (6.3-8.2) g/dL Albumin 3.3 L (3.5-5.0) g/dL Assessment and Plan Assessment: Fall, with Generalized weakness, patient could not get up from the floor New-onset Atrial fibrillation with controlled rate Hematuria, could be related to or exacerbated by NSAID abuse Hyponatremia, could be related to hydrochlorothiazide Dehydration and hypovolemia, improving with IV fluid [id number] acute COPD exacerbation Mild hypomagnesemia, improved Covid infection without pneumonia or hypoxia Chronic kidney disease, stage III Alcohol use disorder Nicotine dependence Hypertension hyperlipidemia History of coronary artery disease Plan: This is a pleasant 86 Male who presents with fall, hyponatremia, covid infection without pneumonia, hematuria Continue with the liquids, cardiology consult Recheck urinalysis Continue with normal saline at 50 mL per hour Repeat chest x-ray, urinalysis Start Solu-Medrol and Symbicort Monitor sodium level, hold hydrochlorothiazide Labs and medication were reviewed.. Continue same treatment. Continue with symptomatic treatment. Resume home medication. Monitor lytes and vitals. DVT and GI prophylaxis. Further recommendations as per clinical course of the patient DVT prophylaxis: Eliquis GI Prophylaxis: Pepcid PT/OT: Pending Prognosis is guarded
[2021-11-25] MEDS: methylPREDNISolone SOD SUCCI 40 MG/ML 1 ML VIAL IV SCH ×3 (12:37→23:45)
--- NOTE | 2021-11-25 13:45 | P.PN ---
Subjective Progress Note Date: 11/25/21 PROGRESS NOTE The patient feels better today. He denies any chest discomfort, dizziness or palpitations. He has a history of mild CAD, nonischemic cardio myopathy, atrial fibrillation. He was COVID positive on admission. He's feeling better today, he denies any chest discomfort, dizziness or palpitations. He denies any nausea. He continues to be in sinus mechanism Medications: Lisinopril 5 mg daily, metoprolol tartrate 12-1/2 mg twice a day, Eliquis milligrams twice a day PHYSICAL EXAMINATION: Blood pressure 112/60 heart rate 60 LUNGS: Decreased breath sounds bilaterally with no wheezes HEART: Regular rate and rhythm, S1, S2. No S3. Ejection systolic murmur ABDOMEN: Soft, nontender, no organomegaly EXTREMETIES: No edema LAB: BUN 31, creatinine 1.27, potassium 3.9 IMPRESSION: 1. Paroxysmal atrial fibrillation 2. History of chronic tobacco use and COPD 3. Mild CAD 4. COVID positive with no clear evidence of pneumonia PLAN: 1. Continue present therapy 2. Increase physical activity 3. Follow her renal functions 4. Depending on his progress probable discharge in the next 24 hours Objective - Vital Signs Vital signs: Vital Signs Temp 98.5 F 11/25/21 12:36 Pulse 57 L 11/25/21 12:36 Resp 17 11/25/21 12:36 BP 112/60 11/25/21 12:36 Pulse Ox 95 11/25/21 12:36 FiO2 Intake & Output 11/24/21 11/25/21 11/25/21 18:59 06:59 18:59 Intake Total 180 118 Output Total 250 200 Balance -70 -82 Intake: Oral 180 118 Output: Urine 250 200 Other: Voiding Method Toilet Toilet Toilet Urinal Urinal Urinal # Voids 1 1 - Labs CBC & Chem 7: 11/25/21 08:14 11/25/21 08:14 Labs: Abnormal Lab Results - Last 24 Hours (Table) 11/25/21 11/25/21 Range/Units 08:14 08:14 RBC 3.87 L (4.30-5.90) m/uL Hgb 11.3 L (13.0-17.5) gm/dL Hct 33.7 L (39.0-53.0) % Lymphocytes # (Manual) 0.36 L (1.0-4.8) k/uL Sodium 130 L (137-145) mmol/L Chloride 97 L (98-107) mmol/L BUN 31 H (9-20) mg/dL Creatinine 1.27 H (0.66-1.25) mg/dL Glucose 122 H (74-99) mg/dL Magnesium 1.4 L (1.6-2.3) mg/dL AST 64 H (17-59) U/L Total Protein 5.6 L (6.3-8.2) g/dL Albumin 3.3 L (3.5-5.0) g/dL
[2021-11-25] MEDS ORDERED: DEXTROSE 50% SYRINGE 50 ML IVP PRN ×2 (19:27)
[2021-11-25 20:40] LABS: Glucose,Whole Blood 218 mg/dL (70-110)
[2021-11-25] MEDS: INSULIN ASPART (NovoLOG) 100 UNIT/ML VIAL SQ SCH (20:40)
[2021-11-25] MEDS: LATANOPROST 0.005% OPHTH DROPS 2.5 ML BTL BOTH EYES SCH (20:42)
[2021-11-25] MEDS: SYMBICORT 160-4.5 MCG INHALER INHALATION SCH (21:03)
[2021-11-26] MEDS: INSULIN ASPART (NovoLOG) 100 UNIT/ML VIAL SQ SCH ×4 (06:14→21:06)
[2021-11-26 06:26] LABS: Glucose,Whole Blood 141 mg/dL (70-110)
--- NOTE | 2021-11-26 07:54 | XR ---
EXAMINATION TYPE: XR chest 1V DATE OF EXAM: 11/26/2021 COMPARISON: 11/23/2021 HISTORY: 86 year-old male shortness of breath TECHNIQUE: Single frontal view of the chest is obtained. FINDINGS: Heart normal size. Atherosclerotic arch calcifications. Some tortuosity/ectasia of the descending tho racic aorta. Hyperinflation. Mild interstitial prominence is unchanged. No consolidation or pleural e ffusion. IMPRESSION: COPD and chronic changes. No definite acute process.
[2021-11-26] MEDS: SYMBICORT 160-4.5 MCG INHALER INHALATION SCH ×2 (08:36→21:13)
[2021-11-26 09:43] LABS: Basophils % (A) 0 %; Eosinophils % (A) 0 %; HCT 33.8 % (39.0-53.0); HGB 11.1 gm/dL (13.0-17.5); Lymphocytes # (A) 0.4 k/uL (1.0-4.8); Lymphocytes % (A) 12 %; MCH 28.6 pg (25.0-35.0); MCHC 32.8 g/dL (31.0-37.0); Monocytes # (A) 0.2 k/uL (0-1.0); Monocytes % (A) 6 %; Neutrophils # (A) 2.9 k/uL (1.3-7.7); Neutrophils % (A) 81 %; Platelet Count 172 k/uL (150-450); RBC 3.88 m/uL (4.30-5.90); RDW 13.9 % (11.5-15.5); WBC 3.6 k/uL (3.8-10.6)
[2021-11-26] MEDS: methylPREDNISolone SOD SUCCI 40 MG/ML 1 ML VIAL IV SCH (09:53)
[2021-11-26] MEDS: METOPROLOL TARTRATE 12.5 MG TAB PO SCH ×2 (09:53→21:06)
[2021-11-26] MEDS: FAMOTIDINE 20 MG TAB PO SCH (09:53)
[2021-11-26] MEDS: THIAMINE 100 MG TAB PO SCH (09:54)
[2021-11-26] MEDS: APIXABAN 5 MG TAB PO SCH ×2 (09:54→21:05)
[2021-11-26] MEDS: SODIUM CHLORIDE 0.9% 1,000 ML IV SCH (09:54)
[2021-11-26] MEDS: lisinopriL 5 MG TAB PO SCH (09:54)
[2021-11-26 09:56] LABS: Albumin 3.7 g/dL (3.5-5.0); Bilirubin, Delta 0.1 mg/dL (0.0-0.2); Bilirubin,Unconjugated 0.3 mg/dL (0.0-1.1); Calcium 8.5 mg/dL (8.4-10.2); Magnesium 1.3 mg/dL (1.6-2.3); Potassium 4.1 mmol/L (3.5-5.1); Total Bilirubin 0.4 mg/dL (0.2-1.3); Total Protein 6.1 g/dL (6.3-8.2)
--- NOTE | 2021-11-26 10:14 | P.PN ---
Subjective This is a pleasant 86 years old male with past medical history of hypertension, hyperlipidemia, coronary artery disease, nicotine dependence , Place and Patient states he was walking his home when he fell weak in his legs and he has to lay down on the floor, he denies hitting his head or any part of his body and he denies any headache or current pain symptoms. As per report patient has difficulty standing up from lying position and was called EMS for him. Patient however denies any chest pain or dyspnea although he has some dry cough, he is current smoker about half-1 pack per day and he was counseled but declines to quit and declines nicotine patch. Also he drinks 2-3 beers a day but no liquor He has some urgency Which is recent but no dysuria, he has increased frequency. Patient denies hematuria but there was blood in his urine analysis. No suprapubic pain or tenderness or flank pain. He has some loose bowel movement today, No Nausea Vomiting but Has No Appetite over the Last 2 Days numbness. no syncope. patient states that he has left knee problems and he follow-up with orthopedic team and SALES AND SERVICE OFFICER Paige, he states that he takes Aleve for many years once a day and sometimes twice a day if needed. Patient's vital signs stable CBC is unremarkable, INR is normal. Sodium 128, repeat sodium is 127 Creatinine elevated at 1.4. At baseline of 1.4-1.6 Magnesium 1.5 Bilirubin normal, AST slightly elevated at 76, ALT normal 22. Troponin is negative at 0.02. Urine analysis showed large blood but 1 unit RBCs Coronavirus detected EKG: Atrial fibrillation with rate of 88, left bundle branch block Chest x-ray: No acute process In the emergency room and received normal saline at 75 mL/h besides the normal saline bullous. He was started on Heparin drip and magnesium. Optical Advisor consulted for A. fib TSH 0.40-54 normal 1.5. At home he was on lisinopril-hydrochlorothiazide 20-12.5 mg 11/25/2021 Patient awake comfortable lying in bed with no distress. His toe fillet generally weak after he presents with falling. It looks dehydrated and slightly hypovolemic and his hydrochlorothiazide was stopped, yesterday he was hypotensive 70/43 received a bolus of 1 L and currently he is on normal saline 50 mL/h. Blood pressure improved this morning at 104/57. At rest he was wheezing therefore Solu-Medrol this added 40 mg every 8 hours, she is current smoker since age 15. Sodium is improving up to 1:30, creatinine trending down 1.2. Renal ultrasound is negative. Aprilcalcitonin is 0.25, off the test is positive with no pneumonia. He has no significant alcohol withdrawal symptoms Optical Advisor Marco on liquids for his A. fib, rate controlled. Bladder scan is negative at 26. Repeat urine analysis and potential started tomorrow. Repeat chest x-ray in the morning 11/27/2011 Patient is getting stronger every day, he is fully awake and oriented and feels better. He denies any specific symptoms. His breathing is easier and he has less wheezing and good air entry and he is saturating high 90s on room air, we can switch his Solu-Medrol and prednisone burst taper starting at 30 mg from tomorrow. Also he is well-hydrated and his vitals are stable, creatinine back to normal at 1.0 and we can stop his IV fluids as he is eating and drinking well. Keep holding hydrochlorothiazide upon discharge and his sodium improved up to 131. Scope with infection does not given him respiratory symptoms Also patient with no alcohol withdrawal symptoms. His atrial fibrillation is controlled and cartilages on the case, currently is on metoprolol 12.5 mg and liquids 5 mg which he was taking at home. We'll check physical therapy evaluation tomorrow Low magnesium Possible discharge in 24-48 hours Objective - Vital Signs Vital signs: Vital Signs Temp 98.0 F 11/26/21 03:50 Pulse 68 11/26/21 03:50 Resp 16 11/26/21 03:50 BP 134/67 11/26/21 03:50 Pulse Ox 95 11/26/21 03:50 FiO2 Intake & Output 11/25/21 11/26/21 11/26/21 18:59 06:59 18:59 Intake Total 354 118 Output Total 200 Balance 154 118 Intake: Oral 354 118 Output: Urine 200 Other: Voiding Method Toilet Toilet Urinal Urinal # Voids 1 - Exam -GENERAL: The patient is alert and oriented x3, not in any acute distress. Well developed, well nourished. Generally weak HEENT: Pupils are round and equally reacting to light. EOMI. No scleral icterus. No conjunctival pallor. Normocephalic, atraumatic. No pharyngeal erythema. No thyromegaly. CARDIOVASCULAR: S1 and S2 present. No murmurs, rubs, or gallops. -PULMONARY: Chest is clear to auscultation,bilateral expiratory wheezing ABDOMEN: Soft, nontender, nondistended, normoactive bowel sounds. No palpable organomegaly. MUSCULOSKELETAL: No joint swelling or deformity. EXTREMITIES: No cyanosis, clubbing, or pedal edema. NEUROLOGICAL: Gross neurological examination did not reveal any focal deficits. SKIN: No rashes. no petechiae. - Labs CBC & Chem 7: 11/26/21 08:27 11/26/21 08:27 Labs: Abnormal Lab Results - Last 24 Hours (Table) 11/25/21 11/25/21 11/26/21 Range/Units 08: 20:38 06:04 WBC (3.8-10.6) k/uL RBC (4.30-5.90) m/uL Hgb (13.0-17.5) gm/dL Hct (39.0-53.0) % Lymphocytes # (1.0-4.8) k/uL Sodium (137-145) mmol/L Chloride (98-107) mmol/L BUN (9-20) mg/dL Glucose (74-99) mg/dL POC Glucose (mg/dL) 218 H 141 H (70-110) mg/dL Hemoglobin A1c 6.2 H (0.0-6.0) % Magnesium (1.6-2.3) mg/dL Total Protein (6.3-8.2) g/dL 11/26/21 11/26/21 Range/Units 08:27 08:27 WBC 3.6 L (3.8-10.6) k/uL RBC 3.88 L (4.30-5.90) m/uL Hgb 11.1 L (13.0-17.5) gm/dL Hct 33.8 L (39.0-53.0) % Lymphocytes # 0.4 L (1.0-4.8) k/uL Sodium 131 L (137-145) mmol/L Chloride 96 L (98-107) mmol/L BUN 24 H (9-20) mg/dL Glucose 171 H (74-99) mg/dL POC Glucose (mg/dL) (70-110) mg/dL Hemoglobin A1c (0.0-6.0) % Magnesium 1.3 L (1.6-2.3) mg/dL Total Protein 6.1 L (6.3-8.2) g/dL Assessment and Plan Assessment: Fall, with Generalized weakness, patient could not get up from the floor New-onset Atrial fibrillation with controlled rate Hematuria, could be related to or exacerbated by NSAID abuse Hyponatremia, could be related to hydrochlorothiazide Dehydration and hypovolemia, improving with IV fluid [id number] acute COPD exacerbation Mild hypomagnesemia, improved Covid infection without pneumonia or hypoxia Chronic kidney disease, stage III Alcohol use disorder Nicotine dependence Hypertension hyperlipidemia History of coronary artery disease Plan: This is a pleasant 86 Male who presents with fall, hyponatremia, covid infection without pneumonia, hematuria Continue with the Eliquis, cardiology consult Recheck urinalysis Discontinue IV fluids Continue with prednisone Monitor sodium level, hold hydrochlorothiazide Labs and medication were reviewed.. Continue same treatment. Continue with symptomatic treatment. Resume home medication. Monitor lytes and vitals. DVT and GI prophylaxis. Further recommendations as per clinical course of the patient DVT prophylaxis: Eliquis GI Prophylaxis: Pepcid PT/OT: Pending Prognosis is guarded
[2021-11-26 13:15] LABS: Glucose,Whole Blood 226 mg/dL (70-110)
[2021-11-26] MEDS: MAGNESIUM SULFATE-D5W PMX 1 GM in DEXTROSE/WATER 1 100ML.BAG IVPB SCH ×2 (13:26→17:21)
--- NOTE | 2021-11-26 15:18 | P.PN ---
Subjective Progress Note Date: 11/26/21 PROGRESS NOTE The patient feels better today. He denies any chest discomfort, dizziness or palpitations. He has a history of mild CAD, nonischemic cardiomyopathy, atrial fibrillation. He was COVID positive on admission. He's feeling better today, he denies any chest discomfort, dizziness or palpitations. He denies any nausea. He continues to be in sinus mechanism November 26: The patient feels well this morning, he denies any chest discomfort, he denies any dizziness or palpitations. He continues to be in sinus mechanism. He is ambulating more. No nausea no vomiting. He is being evaluated for physical therapy. He continues to be on anticoagulation. He is supine and no evidence of heart failure. Medications: Lisinopril 5 mg daily, metoprolol tartrate 12.5 mg twice a day, Eliquis millig deyvi twice a day PHYSICAL EXAMINATION: Blood pressure 144/60 heart rate 69 LUNGS: Decreased breath sounds bilaterally with no wheezes HEART: Regular rate and rhythm, S1, S2. No S3. Ejection systolic murmur ABDOMEN: Soft, nontender, no organomegaly EXTREMETIES: No edema LAB: BUN 24, creatinine 1.07, potassium 4.1 IMPRESSION: 1. Paroxysmal atrial fibrillation 2. History of chronic tobacco use and COPD 3. Mild CAD 4. COVID positive with no clear evidence of pneumonia PLAN: 1. Continue present therapy 2. Increase physical activity, physical therapy evaluation 3. Probable discharge home tomorrow Objective - Vital Signs Vital signs: Vital Signs Temp 97.8 F 11/26/21 13:25 Pulse 69 11/26/21 13:25 Resp 17 11/26/21 13:25 BP 144/65 11/26/21 13:25 Pulse Ox 95 11/26/21 13:25 FiO2 Intake & Output 11/25/21 11/26/21 11/26/21 18:59 06:59 18:59 Intake Total 354 806 Output Total 200 Balance 154 806 Intake: Oral 354 806 Output: Urine 200 Other: Voiding Method Toilet Toilet Toilet Urinal Urinal Urinal # Voids 1 1 - Labs CBC & Chem 7: 11/26/21 08:27 11/26/21 08:27 Labs: Abnormal Lab Results - Last 24 Hours (Table) 11/25/21 11/25/21 11/26/21 Range/Units 08:14 20:38 06:04 WBC (3.8-10.6) k/uL RBC (4.30-5.90) m/uL Hgb (13.0-17.5) gm/dL Hct (39.0-53.0) % Lymphocytes # (1.0-4.8) k/uL Sodium (137-145) mmol/L Chloride (98-107) mmol/L BUN (9-20) mg/dL Glucose (74-99) mg/dL POC Glucose (mg/dL) 218 H 141 H (70-110) mg/dL Hemoglobin A1c 6.2 H (0.0-6.0) % Magnesium (1.6-2.3) mg/dL Total Protein (6.3-8.2) g/dL 11/26/21 11/26/21 11/26/21 Range/Units 08:27 08:27 13:12 WBC 3.6 L (3.8-10.6) k/uL RBC 3.88 L (4.30-5.90) m/uL Hgb 11.1 L (13.0-17.5) gm/dL Hct 33.8 L (39.0-53.0) % Lymphocytes # 0.4 L (1.0-4.8) k/uL Sodium 131 L (137-145) mmol/L Chloride 96 L (98-107) mmol/L BUN 24 H (9-20) mg/dL Glucose 171 H (74-99) mg/dL POC Glucose (mg/dL) 226 H (70-110) mg/dL Hemoglobin A1c (0.0-6.0) % Magnesium 1.3 L (1.6-2.3) mg/dL Total Protein 6.1 L (6.3-8.2) g/dL
[2021-11-26 16:36] LABS: Glucose,Whole Blood 172 mg/dL (70-110)
[2021-11-26 20:21] LABS: Glucose,Whole Blood 163 mg/dL (70-110)
[2021-11-26] MEDS: LATANOPROST 0.005% OPHTH DROPS 2.5 ML BTL BOTH EYES SCH (21:05)
[2021-11-26 22:22] VITALS: RESP 18
[2021-11-27 06:15] LABS: Glucose,Whole Blood 90 mg/dL (70-110)
[2021-11-27] MEDS: INSULIN ASPART (NovoLOG) 100 UNIT/ML VIAL SQ SCH ×2 (06:53→12:55)
[2021-11-27 07:22] LABS: Calcium 8.6 mg/dL (8.4-10.2); Magnesium 1.7 mg/dL (1.6-2.3); Potassium 4.5 mmol/L (3.5-5.1)
[2021-11-27] MEDS: SYMBICORT 160-4.5 MCG INHALER INHALATION SCH (08:02)
[2021-11-27] MEDS ORDERED: predniSONE 10 MG TAB PO SCH (09:00)
[2021-11-27] MEDS: THIAMINE 100 MG TAB PO SCH (10:04)
[2021-11-27] MEDS: lisinopriL 5 MG TAB PO SCH (10:04)
[2021-11-27] MEDS: FAMOTIDINE 20 MG TAB PO SCH (10:04)
[2021-11-27] MEDS: METOPROLOL TARTRATE 12.5 MG TAB PO SCH (10:04)
[2021-11-27] MEDS: APIXABAN 5 MG TAB PO SCH (10:05)
--- NOTE | 2021-11-27 10:12 | P.PN ---
Subjective PROGRESS NOTE The patient feels better today. He denies any chest discomfort, dizziness or palpitations. He has a history of mild CAD, nonischemic cardiomyopathy, atrial fibrillation. He was COVID positive on admission. He's feeling better today, he denies any chest discomfort, dizziness or palpitations. He denies any nausea. He continues to be in sinus mechanism November 26: The patient feels well this morning, he denies any chest discomfort, he denies any dizziness or palpitations. He continues to be in sinus mechanism. He is ambulating more. No nausea no vomiting. He is being evaluated for physical therapy. He continues to be on anticoagulation. He is supine and no evidence of heart failure. 11/27 Denies any chest pain or pressure. Chronic SOB. Able to walk to bathroom. Sinus rhythm on telemetry. Medications: Lisinopril 5 mg daily, metoprolol tartrate 12.5 mg twice a day, Eliquis milligrams twice a day PHYSICAL EXAMINATION: Blood pressure 144/60 heart rate 69 LUNGS: Decreased breath sounds bilaterally with no wheezes HEART: Regular rate and rhythm, S1, S2. No S3. Ejection systolic murmur ABDOMEN: Soft, nontender, no organomegaly EXTREMETIES: No edema IMPRESSION: 1. Paroxysmal atrial fibrillation, currently normal sinus 2. History of chronic tobacco use and COPD 3. Mild CAD 4. COVID positive with no clear evidence of pneumonia PLAN: Currently sinus rhythm and appears controlled on current regimen. Stable for discharge home from a cardiology standpoint. Objective - Vital Signs Vital signs: Vital Signs Temp 97.5 F L 11/27/21 09:40 Pulse 68 11/27/21 09:40 Resp 18 11/27/21 09:40 BP 121/64 11/27/21 09:40 Pulse Ox 98 11/27/21 09:40 FiO2 Intake & Output 11/26/21 11/27/21 11/27/21 18:59 06:59 18:59 Intake Total 924 Output Total 300 Balance 924 -300 Weight 81.5 kg Intake: Oral 924 Output: Urine 300 Other: Voiding Method Toilet Toilet Urinal Urinal # Voids 1 2 - Labs CBC & Chem 7: 11/26/21 08:27 11/27/21 06:33 Labs: Abnormal Lab Results - Last 24 Hours (Table) 11/26/21 11/26/21 11/26/21 Range/Units 08:27 13:12 16:32 Sodium (137-145) mmol/L BUN (9-20) mg/dL POC Glucose (mg/dL) 226 H 172 H (70-110) mg/dL Procalcitonin 0.16 H (0.02-0.09) ng/mL 11/26/21 11/27/21 Range/Units 20:20 06:33 Sodium 132 L (137-145) mmol/L BUN 23 H (9-20) mg/dL POC Glucose (mg/dL) 163 H (70-110) mg/dL Procalcitonin (0.02-0.09) ng/mL
[2021-11-27] MEDS ORDERED: Magnesium Replacement Protocol 1 EACH MISC MISCELLANE PRN (11:23)
[2021-11-27 11:36] VITALS: TEMP 97.4
[2021-11-27 11:40] LABS: Glucose,Whole Blood 165 mg/dL (70-110)
[2021-11-27] MEDS ORDERED: FUROSEMIDE 10 MG/ML 2 ML VIAL IV ONE (11:41)
--- NOTE | 2021-11-27 12:39 | XR ---
EXAMINATION TYPE: XR chest 1V portable DATE OF EXAM: 11/27/2021 Comparison: 11/26/2021 Clinical History: 86-year-old male with cough Findings: Heart normal size. Atherosclerotic arch calcifications. Pulmonary vasculature within normal limits. P rominent skin folds projecting in the upper chest and along the periphery of the lungs. Interstitial prominence is unchanged. No consolidation or pleural effusion. Impression: Chronic changes and COPD. No definite acute process.
[2021-11-27] MEDS: MAGNESIUM SULFATE-D5W PMX 1 GM in DEXTROSE/WATER 1 100ML.BAG IVPB SCH ×2 (12:55→14:37)
[2021-11-27 13:12] VITALS: BP 135/67; PULSE 71
[2021-11-27 16:21] LABS: Glucose,Whole Blood 171 mg/dL (70-110)
--- NOTE | 2021-11-27 21:29 | P.DS ---
Providers Date of admission: 11/23/21 19:57 Attending physician: Joleen Shultz Consults: 11/23/21 19:57 Consult Physician Urgent Consulting Provider: [facility] Consult Reason/Comments: New-onset A. fib Do you want consulting provider notified?: Yes Primary care physician: Saturnino Espinoza Hospital Course: Diagnoses Fall, with Generalized weakness, patient could not get up from the floor, now improved and physical therapy recommended home health care which patient declined New-onset Atrial fibrillation with controlled rate , patient was started on Eliquis Hematuria, could be related to or exacerbated by NSAID abuse, improving and is symptomatic, follow-up outpatient Hyponatremia, could be related to hydrochlorothiazide, significantly improved Dehydration and hypovolemia, improving with IV fluid [id number] acute COPD exacerbation. Improved Mild hypomagnesemia, improved Covid infection without pneumonia or hypoxia Chronic kidney disease, stage III Alcohol use disorder Nicotine dependence Hypertension hyperlipidemia History of coronary artery disease Hospital course: This is a pleasant 86 years old male with past medical history of hypertension, hyperlipidemia, coronary artery disease, nicotine dependence Patient states he was walking his home when he fell weak in his legs and he has to lay down on the floor, he denies hitting his head or any part of his body and he denies any headache or current pain symptoms. As per report patient has difficulty standing up from lying position and was called EMS for him. Patient was admitted with multiple medical problems including generalized weakness, hypertension, hyponatremia and acute kidney injury. Patient also has evidence of acute COPD exacerbation on the top of that he was found to have A. fib and heart rate was controlled, refrigerating engineer started him on liquids which he tolerates that well. Risk of bleeding explained for him extensively and he is agreeable. The co-pay for Eliquis is $3. 1 month frequent ones provided as well. His blood pressure Nery creatinine and sodium levels are all improved with IV fluid. Hydrochlorothiazide was stopped during hospitalization and upon discharge. Metoprolol 12.5 mg added and lisinopril dose was lowered from 20 down to 10 and 5 mg. The day of discharge patient denies any chest pain or dyspnea. No diarrhea or vomiting. No urinary complaints. No fever. Patient was cleared for discharge by refrigerating engineer Problems and management plan were discussed with the patient and he verbalized understanding and acceptance I called the and discuss the case with her with recommendation for anticoagulation, also further recommendation for outpatient follow-up. The told me she will make sure he will follow-up with Dr. Espinoza, Dr. Perales and Dr. Wong Patient was found stable and can be discharged home however he needs follow-up as an outpatient. Patient was instructed to follow up with PCP Dr. Espinoza within one week and patient agrees Patient was instructed to follow up with refrigerating engineer Dr. Perales in one week and urologist Dr. Wong in one week, patient and both agreeable to call and make appointment Physical exam Gen: patient is a AAOx3, no distress CVS: S1-S2, RRR, no murmur Lungs: B/L CTA, no wheezing Abdomen: soft, no distention, no tenderness, positive bowel sounds Extremity: no leg edema or induration Time spent more than 35 minutes Plan - Discharge Summary Discharge Rx Participant: No New Discharge Prescriptions: New Apixaban [Eliquis] 5 mg PO BID #60 tab Thiamine [Vitamin B-1] 100 mg PO DAILY #30 tab Metoprolol Tartrate [Lopressor] 12.5 mg PO BID #60 tab Famotidine [Pepcid] 20 mg PO Q24HR #30 tab predniSONE 10 mg PO DIRECTED #40 tab lisinopriL [Zestril] 5 mg PO DAILY #30 tab Magnesium Oxide [Mag-Ox] 400 mg PO BID 5 Days #10 tablet Continue Simvastatin [Zocor] 20 mg PO HS Latanoprost Ophth [Xalatan 0.005%] 1 drops BOTH EYES HS guaiFENesin [guaiFENesin Oral Solution] 200 - 400 mg PO HS PRN PRN Reason: Cough Discontinued Aspirin EC [Ecotrin] 81 mg PO DAILY Lisinopril-Hctz 20-12.5 mg [Zestoretic 20-12.5] 1 tab PO BID Naproxen Sodium [Aleve] 220 mg PO BID PRN PRN Reason: Pain Discharge Medication List Simvastatin [Zocor] 20 mg PO HS 09/11/14 [History] Latanoprost Ophth [Xalatan 0.005%] 1 drops BOTH EYES HS 01/02/17 [History] guaiFENesin [guaiFENesin Oral Solution] 200 - 400 mg PO HS PRN 11/23/21 [History] Apixaban [Eliquis] 5 mg PO BID #60 tab 11/24/21 [Rx] Famotidine [Pepcid] 20 mg PO Q24HR #30 tab 11/27/21 [Rx] Magnesium Oxide [Mag-Ox] 400 mg PO BID 5 Days #10 tablet 11/27/21 [Rx] Metoprolol Tartrate [Lopressor] 12.5 mg PO BID #60 tab 11/27/21 [Rx] Thiamine [Vitamin B-1] 100 mg PO DAILY #30 tab 11/27/21 [Rx] lisinopriL [Zestril] 5 mg PO DAILY #30 tab 11/27/21 [Rx] predniSONE 10 mg PO DIRECTED #40 tab 11/27/21 [Rx] Follow up Appointment(s)/Referral(s): Saturnino Espinoza MD [Primary Care Provider] - 1-2 days Bairon Perales MD [STAFF PHYSICIAN] - 1 Week Guero Hernández MD [STAFF PHYSICIAN] - 1 Week (urologist for your hematuria) Patient Instructions/Handouts: A-fib (Atrial Fibrillation) (DC), How To Wash Your Hands (ED), Hypomagnesemia (IP), Droplet Precautions (ED), COVID-19 (Coronavirus Disease 2019) (ED), Face Coverings (Masks) and COVID-19 (ED) Activity/Diet/Wound Care/Special Instructions: We recommend to avoid NSAIDs, like no Aleve, ibuprofen, Motrin, naproxen, mobile or similar medication. Heart healthy diet Activity is restricted till you see your doctor the copay for gordon is $ 3.0 per month, you will get one month free coupon also . please follow up with your and for more recommendation Discharge Disposition: HOME SELF-CARE
== END 2021-11-27 19:02 | disposition home or self-care (01) | DRG 308 ==
LOC: EC 18:02 → 3SCARD 19:57
PROVIDERS: ADMIT Hospitalist; ATTEND Hospitalist
DX: I48.0 Paroxysmal atrial fibrillation (principal); U07.1 COVID-19; E87.1 Hypo-osmolality and hyponatremia; J44.1 Chronic obstructive pulmonary disease with (acute) exacerbation; N17.9 Acute kidney failure, unspecified; I48.92 Unspecified atrial flutter; I42.8 Other cardiomyopathies; I44.7 Left bundle-branch block, unspecified; F10.10 Alcohol abuse, uncomplicated; M47.819 Spondylosis without myelopathy or radiculopathy, site unspecified; W18.30XA Fall on same level, unspecified, initial encounter; Y93.01 Activity, walking, marching and hiking; Y92.009 Unspecified place in unspecified non-institutional (private) residence as the place of occurrence of the external cause; I95.9 Hypotension, unspecified; I12.9 Hypertensive chronic kidney disease with stage 1 through stage 4 chronic kidney disease, or unspecified chronic kidney disease; N18.30 Chronic kidney disease, stage 3 unspecified; T50.2X5A Adverse effect of carbonic-anhydrase inhibitors, benzothiadiazides and other diuretics, initial encounter; R53.1 Weakness; E83.42 Hypomagnesemia; I25.10 Atherosclerotic heart disease of native coronary artery without angina pectoris; E78.5 Hyperlipidemia, unspecified; F17.210 Nicotine dependence, cigarettes, uncomplicated; T39.395A Adverse effect of other nonsteroidal anti-inflammatory drugs [NSAID], initial encounter; R39.15 Urgency of urination; R35.0 Frequency of micturition; R31.9 Hematuria, unspecified; E86.0 Dehydration; E86.1 Hypovolemia; Z79.01 Long term (current) use of anticoagulants; Z79.82 Long term (current) use of aspirin; R76.0 Raised antibody titer; Z98.42 Cataract extraction status, left eye; Z98.41 Cataract extraction status, right eye; Z71.6 Tobacco abuse counseling; Z79.1 Long term (current) use of non-steroidal anti-inflammatories (NSAID); Z80.7 Family history of other malignant neoplasms of lymphoid, hematopoietic and related tissues
CPT/HCPCS: 36415; 71045; 71046; 76770; 80048; 80053; 80076; 81001; 82607; 82746; 83036; 83735; 83935; 84145; 84300; 84439; 84443; 84484; 85025; 85610; 85730; 87635; 93005; 96365; 96368; 99285

== ENCOUNTER → 2022-04-25 | Outpatient (CLI) | payer MEDICARE ==
[2022-04-25 14:55] LABS: HCT 41.5 % (39.6-50.0); HGB 13.1 g/dL (13.0-17.0); MCH 26.9 pg (27.0-32.0); MCHC 31.6 g/dL (32.0-37.0); MCV 85.2 fL (80.0-97.0); Mean Platelet Volume 9.9 fL (9.5-12.2); NRBC Per 100 WBC 0 /100 WBCS (0.0-0.0); Platelet Count 233 X 10*3/uL (140-440); RBC 4.87 X 10*6/uL (4.40-5.60); RDW 14.7 % (11.5-14.5); WBC 5.81 X 10*3/uL (4.50-10.00)
[2022-04-25 16:30] LABS: ALT 12 U/L (10-49); AST 17 U/L (14-35); African American GFR (CKD) 50.8 (60.0-200.0); Albumin 4.4 g/dL (3.8-4.9); Alkaline Phosphatase 65 U/L (41-126); BUN/Creat Ratio 16.27 Ratio (12.00-20.00); Blood Urea Nitrogen 23.1 mg/dL (9.0-27.0); Calcium 9.7 mg/dL (8.7-10.3); Carbon Dioxide 25.2 mmol/L (20.0-27.5); Chloride 101 mmol/L (96-109); Chol/HDL Ratio 2.14 Ratio; Globulin 2.5 g/dL (1.6-3.3); Glucose 92 mg/dL (70-110); Non-African American GFR(CKD) 43.8 (60.0-200.0); Potassium 4.6 mmol/L (3.5-5.5); Sodium 137 mmol/L (135-145); Total Protein 6.9 g/dL (6.2-8.2); VLDL Calculation 15.66 mg/dL (5.00-40.00)
== END | disposition home or self-care (01) ==
LOC: LABWHC1 08:12
PROVIDERS: ATTEND Nurse Practitioner Adult Health
DX: I48.0 Paroxysmal atrial fibrillation (principal); E78.2 Mixed hyperlipidemia; N18.9 Chronic kidney disease, unspecified
CPT/HCPCS: 36415; 80053; 80061; 85027

== ENCOUNTER → 2022-07-25 | Outpatient (CLI) | payer MEDICARE ==
[2022-07-25 08:57] LABS: HGB 13.3 gm/dL (13.0-17.5); MCH 27.6 pg (25.0-35.0); MCHC 32.4 g/dL (31.0-37.0); MCV 85.3 fL (80.0-100.0); Mean Platelet Volume 7.7; Platelet Count 227 k/uL (150-450); RDW 14.5 % (11.5-15.5); WBC 4.2 k/uL (3.8-10.6)
[2022-07-25 12:10] LABS: Eosinophils # (M) 0.13 k/uL (0-0.7); Lymphocytes # (M) 1.81 k/uL (1.0-4.8); Monocytes # (M) 0.42 k/uL (0-1.0); Neutrophils # (M) 1.85 k/uL (1.3-7.7); Neutrophils % (M) 44 %; Nucleated Red Blood Cells 0 /100 WBC (0-0); Total Cells Counted 100
[2022-07-25 16:06] LABS: ALT 14 U/L (10-49); AST 18 U/L (14-35); African American GFR (CKD) 47.9 (60.0-200.0); Albumin 4.3 g/dL (3.8-4.9); Albumin/Globulin Ratio 1.62 (1.60-3.17); Alkaline Phosphatase 58 U/L (41-126); BUN/Creat Ratio 17.72 Ratio (12.00-20.00); Blood Urea Nitrogen 26.4 mg/dL (9.0-27.0); Calcium 9.6 mg/dL (8.7-10.3); Chloride 100 mmol/L (96-109); Chol/HDL Ratio 2.47 Ratio; Globulin 2.7 g/dL (1.6-3.3); Glucose 88 mg/dL (70-110); LDL Cholesterol,Calculated 73.2 mg/dL (0.0-131.0); Non-African American GFR(CKD) 41.3 (60.0-200.0); Sodium 136 mmol/L (135-145); Total Protein 6.9 g/dL (6.2-8.2); VLDL Calculation 17.22 mg/dL (5.00-40.00)
== END | disposition home or self-care (01) ==
LOC: LABWHC1 07:25
PROVIDERS: ATTEND Family Medicine
DX: Z12.5 Encounter for screening for malignant neoplasm of prostate (principal); I10 Essential (primary) hypertension
CPT/HCPCS: 36415; 80053; 80061; 84153; 84439; 84443; 85025

== ENCOUNTER 2022-08-29 10:57 | Emergency (ER) | payer MEDICARE ==
[2022-08-29 11:10] VITALS: TEMP 97.8
[2022-08-29 13:15] LABS: Albumin 4.2 g/dL (3.5-5.0); Calcium 9.4 mg/dL (8.4-10.2); Total Bilirubin 0.9 mg/dL (0.2-1.3); Total Protein 7.1 g/dL (6.3-8.2)
[2022-08-29 13:16] LABS: Potassium 5.6 mmol/L (3.5-5.1)
[2022-08-29 13:27] LABS: Prothrombin Time 10.6 sec (9.0-12.0)
[2022-08-29 13:31] LABS: HGB 13.5 gm/dL (13.0-17.5); MCH 28.5 pg (25.0-35.0); MCHC 33.8 g/dL (31.0-37.0); MCV 84.3 fL (80.0-100.0); Mean Platelet Volume 8.1; Platelet Count 184 k/uL (150-450); RBC 4.74 m/uL (4.30-5.90); RDW 14.5 % (11.5-15.5); WBC 5.2 k/uL (3.8-10.6)
[2022-08-29 13:48] LABS: Basophils # (M) 0.05 k/uL (0-0.2); Lymphocytes # (M) 0.73 k/uL (1.0-4.8); Monocytes # (M) 0.68 k/uL (0-1.0); Neutrophils # (M) 3.74 k/uL (1.3-7.7); Neutrophils % (M) 72 %; Nucleated Red Blood Cells 0 /100 WBC (0-0); Total Cells Counted 200
--- NOTE | 2022-08-29 13:54 | CT ---
EXAMINATION TYPE: CT chest wo con CT DLP: 387.9 mGycm, Automated exposure control for dose reduction was used. DATE OF EXAM: 08/29/2022 1:46 PM COMPARISON: Chest radiograph 11/27/2021 CLINICAL INDICATION:Male, 87 years old with history of fall, short of breath; PHH, fall, short of chris ath and weakness. TECHNIQUE: Multiple axial images were obtained through the chest without IV contrast. Lack of IV or o ral contrast limits evaluation of solid and hollow organ viscera. . Coronal and sagittal reformats re viewed. FINDINGS: LUNGS/ PLEURA: Bibasilar dependent subsegmental atelectasis. Moderate centrilobular emphysematous ally nges. No pleural effusion, pneumothorax, focal consolidation. AIRWAY: Patent and unremarkable.. HEART: Size within normal limits. No pericardial effusion. Moderate coronary artery calcifications. MEDIASTINUM: No gross evidence of adenopathy. 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 Moderate atheroscleroti c calcification of the aorta and its branches. Dilatation the main pulmonary artery measuring up to 4 .0 cm which can be seen setting of pulmonary arterial hypertension. MUSCULOSKELETAL: No acute osseous abnormalities. Mild degenerative changes of the cervicothoracic spi ne. Prominent Schmorl's node involving the superior endplate of T2. Increased thoracic kyphosis. SOFT TISSUES/LYMPH NODES: Unremarkable. LOWER NECK: No significant findings. UPPER ABDOMEN: Small hiatal hernia. Colonic diverticulosis of the visualized descending colon without surrounding inflammatory changes. IMPRESSION: 1. No acute thoracic process. 2. Moderate COPD changes. 3. 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 4. Dilatation of the main pulmonary artery which can be seen in the setting of pulmonary arterial hyp ertension.
[2022-08-29] MEDS ORDERED: methylPREDNISolone SOD SUCCI 125 MG/2 ML VIAL IV STA (14:24)
--- NOTE | 2022-08-29 15:37 | ED ---
SOB HPI - General Chief Complaint: Weakness Stated Complaint: SOB Time Seen by Provider: 08/29/22 11:05 Source: patient, EMS Mode of arrival: EMS Limitations: no limitations - History of Present Illness Initial Comments: 87-year-old male with past history of hypertension, hyperlipidemia, smoking presents emergency room reporting shortness of breath. States over the past couple of days he has had increased shortness of breath. He does have prescriptions for inhalers at home however doesn't use them. He continues to smoke. He denies any sick contacts. Has a chronic cough which has remained unchanged. No fevers. No sputum production. He denies any chest pain. EMS found the patient to have an oxygen of 80%. He was given one breathing treat ment en route with improvement 94%. No lower extremity swelling. Does admit to a fall last week with right-sided chest wall trauma. No other alleviating, precipitating or modifying factors - Related Data Home Medications Medication Instructions Recorded Confirmed Simvastatin [Zocor] 20 mg PO HS 09/11/14 08/29/22 Latanoprost Ophth [Xalatan 0.005%] 1 drops BOTH EYES HS 01/02/17 08/29/22 Apixaban [Eliquis] 2.5 mg PO BID 08/29/22 08/29/22 Famotidine [Pepcid] 20 mg PO DAILY 08/29/22 08/29/22 Previous Rx's Medication Instructions Recorded Magnesium Oxide [Mag-Ox] 400 mg PO BID 5 Days #10 tablet 11/27/21 Metoprolol Tartrate [Lopressor] 12.5 mg PO BID #60 tab 11/27/21 Thiamine [Vitamin B-1] 100 mg PO DAILY #30 tab 11/27/21 lisinopriL [Zestril] 5 mg PO DAILY #30 tab 11/27/21 predniSONE [Deltasone] 20 mg PO BID #10 tab 08/29/22 Allergies Allergy/AdvReac Type Severity Reaction Status Date / Time No Known Allergies Allergy Verified 08/29/22 14:35 Review of Systems ROS Statement: Those systems with pertinent positive or pertinent negative responses have been documented in the HPI. ROS Other: All systems not noted in ROS Statement are negative. Past Medical History Past Medical History: Coronary Artery Disease (CAD), Hyperlipidemia, Hypertension Additional Past Medical History / Comment(s): arthritis in back, cataracts History of Any Multi-Drug Resistant Organisms: None Reported Past Surgical History: Heart Catheterization, Hernia Repair, Tonsillectomy Additional Past Surgical History / Comment(s): colonoscopy, iban cataracts, wisdom teeth Past Anesthesia/Blood Transfusion Reactions: No Reported Reaction Past Psychological History: No Psychological Hx Reported Smoking Status: Current every day smoker Past Alcohol Use History: Daily Past Drug Use History: None Reported - Past Family History Father Family Medical History: Cancer Additional Family Medical History / Comment(s): ca of lymph nodes General Exam Limitations: no limitations General appearance: alert, in no apparent distress Head exam: Present: atraumatic, normocephalic, normal inspection Eye exam: Present: normal appearance, PERRL, EOMI. Absent: scleral icterus, conjunctival injection, periorbital swelling ENT exam: Present: normal exam, mucous membranes moist Neck exam: Present: normal inspection. Absent: tenderness, meningismus, lymphadenopathy Respiratory exam: Present: wheezes, decreased breath sounds. Absent: respiratory distress, rales, rhonchi, stridor Cardiovascular Exam: Present: regular rate, normal rhythm, normal heart sounds. Absent: systolic murmur, diastolic murmur, rubs, gallop, clicks GI/Abdominal exam: Present: soft, normal bowel sounds. Absent: distended, tenderness, guarding, rebound, rigid Extremities exam: Present: normal inspection, full ROM, normal capillary refill. Absent: tenderness, pedal edema, joint swelling, calf tenderness Back exam: Present: normal inspection Neurological exam: Present: alert, oriented X3, CN II-XII intact Psychiatric exam: Present: normal affect, normal mood Skin exam: Present: warm, dry, intact, normal color. Absent: rash Course Vital Signs 08/29/22 08/29/22 08/29/22 11:01 11:52 11:55 Temperature 97.8 F Pulse Rate 70 64 Respiratory 20 20 18 Rate Blood Pressure 139/89 120/78 O2 Sat by Pulse 95 78 L Oximetry 08/29/22 16:11 Temperature Pulse Rate 67 Respiratory 20 Rate Blood Pressure 177/82 O2 Sat by Pulse 97 Oximetry Medical Decision Making - Medical Decision Making Was pt. sent in by a medical professional or institution (, PA, COMMUNICATION CONSULTANT, urgent care, hospital, or prison...) When possible be specific @ -No Did you speak to anyone other than the patient for history (EMS, parent, family, police, friend...)? What history was obtained from this source @ -Patient's Did you review nursing and triage notes (agree or disagree)? Why? @ -I reviewed and agree with nursing and triage notes Were old charts reviewed (outside hosp., previous admission, EMS record, old EKG, old radiological studies, urgent care reports/EKG's, prison records)? Report findings @ -No Differential Diagnosis (chest pain, altered mental status, abdominal pain women, abdominal pain men, vaginal bleeding, weakness, fever, dyspnea, syncope, headache, dizziness, GI bleed, back pain, seizure, CVA, palpatations, mental h ealth, musculoskeletal)? @ -pneumonia, covid, influenza, copd exacerbation, chf exacerbation EKG interpreted by me (3pts min.). @ -Interpreted by me - see EKG box X-rays interpreted by me (1pt min.). @ -yes CT interpreted by me (1pt min.). @ -not done U/S interpreted by me (1pt. min.). @ -None done What testing was considered but not performed or refused? (CT, X-rays, U/S, labs)? Why? @ -None What meds were considered but not given or refused? Why? @ -None Did you discuss the management of the patient with other professionals ( professionals i.e. , PA, COMMUNICATION CONSULTANT, lab, RT, psych nurse, 7th grade social studies teacher, websphere administrator, teacher, network security officer, case planner)? Give summary @ -No Was smoking cessation discussed for >3mins.? @ -Yes Was critical care preformed (if so, how long)? @ -no Were there social determinants of health that impacted care today? How? (Homelessness, low income, unemployed, alcoholism, drug addiction, transp ortation, low edu. Level, literacy, decrease access to med. care, usp, rehab)? @ -No Was there de-escalation of care discussed even if they declined (Discuss DNR or withdrawal of care, Hospice)? DNR status @ -No What co-morbidities impacted this encounter? (DM, HTN, Smoking, COPD, CAD, Cancer, CVA, ARF, Chemo, Hep., AIDS, mental health diagnosis, sleep apnea, morbid obesity)? @ -copd Was patient admitted / discharged? Hospital course, mention meds given and route, prescriptions, significant lab abnormalities, going to OR and other pertinent info. @ -Upon arrival patient is placed into room 26. Thorough history and physical exam was performed. Patient is speaking in full sentences without difficulty. IV is established laboratory studies are conducted. Patient sent for CT of his chest because of his recent trauma or shortness of breath. No pneumothorax. No primary contusion. Patient does have COPD changes and signs of pulmonary hypertension. Patient was given 125 of Solu-Medrol. He remains with auction saturations of 94% in the emergency room without difficulty. Patient be discharged home at this time with a short course of steroids. Instructed that he needs to use his inhalers as directed. Recommended he quit smoking. Given follow-up information for the freight sorter. He is also given an incentive spirometer. He has any new or worsening symptoms she should return to the emergency room. Patient was agreeable to this plan and is discharged home in stable condition Undiagnosed new problem with uncertain prognosis? @ -No Drug Therapy requiring intensive monitoring for toxicity (Heparin, Nitro, Insulin, Cardizem)? @ -No Were any procedures done? @ -No Diagnosis/symptom? @ -acute resp insuff, aecopd Acute, or Chronic, or Acute on Chronic? @ -acute Uncomplicated (without systemic symptoms) or Complicated (systemic symptoms)? @ -complicated Side effects of treatment? @ -No Exacerbation, Progression, or Severe Exacerbation? @ -Yes Poses a threat to life or bodily function? How? (Chest pain, [place], [place], pneumonia, PE, COPD, DKA, ARF, appy, cholecystitis, CVA, Diverticulitis, Homicidal, Suicidal, threat to staff... and all critical care pts) @ - No - Lab Data Result diagrams: 08/29/22 12:43 08/29/22 12:43 Lab Results 08/29/22 08/29/22 08/29/22 Range/Units 12:43 12:43 12:43 WBC 5.2 (3.8-10.6) k/uL RBC 4.74 (4.30-5.90) m/uL Hgb 13.5 (13.0-17.5) gm/dL Hct 40.0 (39.0-53.0) % MCV 84.3 (80.0-100.0) fL MCH 28.5 (25.0-35.0) pg MCHC 33.8 (31.0-37.0) g/dL RDW 14.5 (11.5-15.5) % Plt Count 184 (150-450) k/uL MPV 8.1 Neutrophils % (Manual) 72 % Lymphocytes % (Manual) 14 % Monocytes % (Manual) 13 % Eosinophils % (Manual) 2 % Basophils % (Manual) 1 % Neutrophils # (Manual) 3.74 (1.3-7.7) k/uL Lymphocytes # (Manual) 0.73 L (1.0-4.8) k/uL Monocytes # (Manual) 0.68 (0-1.0) k/uL Eosinophils # (Manual) 0.10 (0-0.7) k/uL Basophils # (Manual) 0.05 (0-0.2) k/uL Nucleated RBCs 0 (0-0) /100 WBC PT 10.6 (9.0-12.0) sec INR 1.0 (<1.2) APTT 28.0 (22.0-30.0) sec Sodium 133 L (137-145) mmol/L Potassium 5.6 H (3.5-5.1) mmol/L Chloride 98 (98-107) mmol/L Carbon Dioxide 27 (22-30) mmol/L Anion Gap 8 mmol/L BUN 38 H (9-20) mg/dL Creatinine 1.30 H (0.66-1.25) mg/dL Est GFR (CKD-EPI)AfAm 57 (>60 ml/min/1.73 sqM) Est GFR (CKD-EPI)NonAf 49 (>60 ml/min/1.73 sqM) Glucose 108 H (74-99) mg/dL Calcium 9.4 (8.4-10.2) mg/dL Total Bilirubin 0.9 (0.2-1.3) mg/dL AST 27 (17-59) U/L ALT 17 (4-49) U/L Alkaline Phosphatase 57 (38-126) U/L Troponin I (0.000-0.034) ng/mL NT-Pro-B Natriuret Pep pg/mL Total Protein 7.1 (6.3-8.2) g/dL Albumin 4.2 (3.5-5.0) g/dL 08/29/22 08/29/22 Range/Units 12:43 12:43 WBC (3.8-10.6) k/uL RBC (4.30-5.90) m/uL Hgb (13.0-17.5) gm/dL Hct (39.0-53.0) % MCV (80.0-100.0) fL MCH (25.0-35.0) pg MCHC (31.0-37.0) g/dL RDW (11.5-15.5) % Plt Count (150-450) k/uL MPV Neutrophils % (Manual) % Lymphocytes % (Manual) % Monocytes % (Manual) % Eosinophils % (Manual) % Basophils % (Manual) % Neutrophils # (Manual) (1.3-7.7) k/uL Lymphocytes # (Manual) (1.0-4.8) k/uL Monocytes # (Manual) (0-1.0) k/uL Eosinophils # (Manual) (0-0.7) k/uL Basophils # (Manual) (0-0.2) k/uL Nucleated RBCs (0-0) /100 WBC PT (9.0-12.0) sec INR (<1.2) APTT (22.0-30.0) sec Sodium (137-145) mmol/L Potassium (3.5-5.1) mmol/L Chloride (98-107) mmol/L Carbon Dioxide (22-30) mmol/L Anion Gap mmol/L BUN (9-20) mg/dL Creatinine (0.66-1.25) mg/dL Est GFR (CKD-EPI)AfAm (>60 ml/min/1.73 sqM) Est GFR (CKD-EPI)NonAf (>60 ml/min/1.73 sqM) Glucose (74-99) mg/dL Calcium (8.4-10.2) mg/dL Total Bilirubin (0.2-1.3) mg/dL AST (17-59) U/L ALT (4-49) U/L Alkaline Phosphatase (38-126) U/L Troponin I <0.012 (0.000-0.034) ng/mL NT-Pro-B Natriuret Pep 321 pg/mL Total Protein (6.3-8.2) g/dL Albumin (3.5-5.0) g/dL - EKG Data EKG Comments: EKG demonstrates sinus bradycardia with a rate of 57. AL interval to 78. QRS 141. QTC 449. Left bundle branch block. Negative for sgarbossa criteria Disposition Clinical Impression: Acute respiratory insufficiency, COPD exacerbation, Pulmonary hypertension Disposition: HOME SELF-CARE Condition: Stable Instructions (If sedation given, give patient instructions): Pulmonary Arterial Hypertension (ED) Additional Instructions: Please start the steroids tomorrow. Use your rescue inhaler every 4 hours. Use the incentive spirometer as you were instructed. Use your Trelegy inhaler every morning. Follow-up with your doctor. If your breathing continues to worsen, you may need to see a freight sorter. Return for any new or worsening symptoms Prescriptions: predniSONE [Deltasone] 20 mg PO BID #10 tab Is patient prescribed a controlled substance at d/c from ED?: No Referrals: None,Stated [Primary Care Provider] - 1-2 days Blessing Merida MD [STAFF PHYSICIAN] - 1-2 days Time of Disposition: 15:36
[2022-08-29 16:13] VITALS: BP 177/82; PULSE 67; RESP 20
== END 2022-08-29 16:13 | disposition home or self-care (01) ==
LOC: EC 10:57
DX: R06.89 Other abnormalities of breathing (principal); J44.1 Chronic obstructive pulmonary disease with (acute) exacerbation; I27.20 Pulmonary hypertension, unspecified; I25.10 Atherosclerotic heart disease of native coronary artery without angina pectoris; E78.5 Hyperlipidemia, unspecified; F17.200 Nicotine dependence, unspecified, uncomplicated; Z79.01 Long term (current) use of anticoagulants; Z79.899 Other long term (current) drug therapy
CPT/HCPCS: 36415; 93005; 83880; 80053; 84484; 85025; 85610; 85730; 71250; 99285; 96374; J2930

== ENCOUNTER 2022-10-26 12:48 | Emergency (ER) | payer MEDICARE ==
--- NOTE | 2022-10-26 12:56 | ED ---
General Adult HPI - General Stated complaint: Fall Time Seen by Provider: 10/26/22 12:49 Source: patient, EMS, RN notes reviewed Mode of arrival: EMS Limitations: no limitations - History of Present Illness Initial comments: Patient is a pleasant 87-year-old male presenting to the emergency department following a fall. Patient fell down one or 2 steps that he tripped. Patient landed left lower ribs. Patient complains of discomfort in the area of the ribs only. No other area of injury or concern. No head injury or loss of consciousness. No neck or mid back pain. Patient did strike his head one month ago however has had no problems since that time. - Related Data Home Medications Medication Instructions Recorded Confirmed Simvastatin [Zocor] 20 mg PO HS 09/11/14 08/29/22 Latanoprost Ophth [Xalatan 0.005%] 1 drops BOTH EYES HS 01/02/17 08/29/22 Apixaban [Eliquis] 2.5 mg PO BID 08/29/22 08/29/22 Famotidine [Pepcid] 20 mg PO DAILY 08/29/22 08/29/22 Previous Rx's Medication Instructions Recorded Magnesium Oxide [Mag-Ox] 400 mg PO BID 5 Days #10 tablet 11/27/21 Metoprolol Tartrate [Lopressor] 12.5 mg PO BID #60 tab 11/27/21 Thiamine [Vitamin B-1] 100 mg PO DAILY #30 tab 11/27/21 lisinopriL [Zestril] 5 mg PO DAILY #30 tab 11/27/21 predniSONE [Deltasone] 20 mg PO BID #10 tab 08/29/22 Allergies Allergy/AdvReac Type Severity Reaction Status Date / Time No Known Allergies Allergy Verified 10/26/22 12:59 Review of Systems ROS Statement: Those systems with pertinent positive or pertinent negative responses have been documented in the HPI. ROS Other: All systems not noted in ROS Statement are negative. Constitutional: Denies: fever Eyes: Denies: eye pain ENT: Denies: ear pain, throat pain Respiratory: Denies: dyspnea Cardiovascular: Reports: as per HPI Endocrine: Denies: fatigue Gastrointestinal: Denies: abdominal pain Genitourinary: Denies: dysuria Past Medical History Past Medical History: Coronary Artery Disease (CAD), Hyperlipidemia, Hypertension Additional Past Medical History / Comment(s): arthritis in back, cataracts History of Any Multi-Drug Resistant Organisms: None Reported Past Surgical History: Heart Catheterization, Hernia Repair, Tonsillectomy Additional Past Surgical History / Comment(s): colonoscopy, iban cataracts, wisdom teeth Past Anesthesia/Blood Transfusion Reactions: No Reported Reaction Past Psychological History: No Psychological Hx Reported Smoking Status: Current every day smoker Past Alcohol Use History: Daily Past Drug Use History: None Reported - Past Family History Father Family Medical History: Cancer Additional Family Medical History / Comment(s): ca of lymph nodes General Exam Limitations: no limitations General appearance: alert Head exam: Present: atraumatic Eye exam: Present: normal appearance, PERRL, EOMI Neck exam: Present: normal inspection. Absent: tenderness Respiratory exam: Present: normal lung sounds bilaterally, chest wall tenderness (Left lower posterior ribs) Cardiovascular Exam: Present: regular rate, normal rhythm GI/Abdominal exam: Present: soft. Absent: distended, tenderness, guarding, rebound, rigid Extremities exam: Present: normal inspection, full ROM. Absent: tenderness Back exam: Present: other (Left lower posterior ribs). Absent: CVA tenderness (L) Neurological exam: Present: alert Psychiatric exam: Present: normal affect, normal mood Skin exam: Present: normal color Course Vital Signs 10/26/22 12:52 Temperature 98.2 F Pulse Rate 60 Respiratory 18 Rate Blood Pressure 189/93 O2 Sat by Pulse 93 L Oximetry Medical Decision Making - Medical Decision Making Was pt. sent in by a medical professional or institution (, PA, PHYSICIAN VICE PRESIDENT, urgent care, hospital, or care home...) When possible be specific @ -[No] Did you speak to anyone other than the patient for history (EMS, parent, family, police, friend...)? What history was obtained from this source @ -EMS helps provide history of patient injury. Also medications given prior to arrival. Did you review nursing and triage notes (agree or disagree)? Why? @ -[I reviewed and agree with nursing and triage notes] Were old charts reviewed (outside hosp., previous admission, EMS record, old EKG, old radiological studies, urgent care reports/EKG's, care home records)? Report findings @ -[No old charts were reviewed] Differential Diagnosis (chest pain, altered mental status, abdominal pain women, abdominal pain men, vaginal bleeding, weakness, fever, dyspnea, syncope, headache, dizziness, GI bleed, back pain, seizure, CVA, palpatations, mental health, musculoskeletal)? @ -Differential Musculoskeletal Muscular strain, contusion, ligament sprain, fracture, arthritis, septic arthritis, bursitis, cellulitis, muscle spasm, nerve compression, DVT, arterial occlusion, herpes zoster, electrolyte abnormality, tumor.... This is not meant to be in all inclusive list EKG interpreted by me (3pts min.). @ -[As above] X-rays interpreted by me (1pt min.). @ -Chest and left rib x-rays show left seventh rib fracture CT interpreted by me (1pt min.). @ -[None done] U/S interpreted by me (1pt. min.). @ -[None done] What testing was considered but not performed or refused? (CT, X-rays, U/S, labs)? Why? @ -[None] What meds were considered but not given or refused? Why? @ -[None] Did you discuss the management of the patient with other professionals (professionals i.e. , PA, PHYSICIAN VICE PRESIDENT, lab, RT, psych nurse, social economist, lawyer criminal, teacher, correction officer city or county jail, egg caser)? Give summary @ -[No] Was smoking cessation discussed for >3mins.? @ -[No] Was critical care preformed (if so, how long)? @ -[No] Were there social determinants of health that impacted care today? How? (Homelessness, low income, unemployed, alcoholism, drug addiction, transportation, low edu. Level, literacy, decrease access to med. care, [facility], rehab)? @ -[No] Was there de-escalation of care discussed even if they declined (Discuss DNR or withdrawal of care, Hospice)? DNR status @ -[No] What co-morbidities impacted this encounter? (DM, HTN, Smoking, COPD, CAD, Cancer, CVA, ARF, Chemo, Hep., AIDS, mental health diagnosis, sleep apnea, morbid obesity)? @ -[None] Was patient admitted / discharged? Hospital course, mention meds given and route, prescriptions, significant lab abnormalities, going to OR and other pertinent info. @ -Patient reevaluated. Patient and family updated. Patient be discharged Undiagnosed new problem with uncertain prognosis? @ -[No] Drug Therapy requiring intensive monitoring for toxicity (Heparin, Nitro, Insulin, Cardizem)? @ -[No] Were any procedures done? @ -[No] Diagnosis/symptom? @ -Rib fracture Acute, or Chronic, or Acute on Chronic? @ -Acute Uncomplicated (without systemic symptoms) or Complicated (systemic symptoms)? @ -[default] Side effects of treatment? @ -[No] Exacerbation, Progression, or Severe Exacerbation? @ -[No] Poses a threat to life or bodily function? How? (Chest pain, [place], [place], pneumonia, PE, COPD, DKA, ARF, appy, cholecystitis, CVA, Diverticulitis, Homicidal, Suicidal, threat to staff... and all critical care pts) @ -[No] Disposition Clinical Impression: Rib fracture Disposition: HOME SELF-CARE Condition: Stable Instructions (If sedation given, give patient instructions): Rib Fracture (ED) Additional Instructions: Please do follow-up with your primary care physician in the next day or 2 for recheck. Return for difficulty breathing, increased pain, worsening symptoms or other concerns. Is patient prescribed a controlled substance at d/c from ED?: No Referrals: Saturnino Espinoza MD [Primary Care Provider] - 1-2 days Time of Disposition: 14:10
[2022-10-26 12:59] VITALS: RESP 18
--- NOTE | 2022-10-26 13:39 | XR ---
EXAMINATION TYPE: XR ribs LT w pa chest xray DATE OF EXAM: 10/26/2022 COMPARISON: 11/27/2021 HISTORY: Pain from fall TECHNIQUE: Frontal chest 2 views left RIBS FINDINGS: Heart size normal. Pulmonary vasculature is normal. Lungs are clear. No pneumothorax is patricia dent. A single projection has a lucency within a lateral left rib, possibly the seventh rib near the lower lung level. This is not identified on additional projections. Correlate with location of patient's pa in. IMPRESSION: 1. Nondisplaced occult fracture of a left lateral possibly seventh rib fracture. Correlate with loca tion of the patient's pain. 2. Left rib study is otherwise unremarkable.
[2022-10-26] MEDS ORDERED: MORPHINE SULFATE 4 MG/ML SYRINGE IVP STA (14:10)
[2022-10-26] MEDS ORDERED: ACET/COD 300 MG/30 MG STARTER PACK 6 TAB BTL PO STA (14:10)
[2022-10-26 14:21] VITALS: BP 177/90; PULSE 64; TEMP 98.1
== END 2022-10-26 14:38 | disposition home or self-care (01) ==
LOC: EC 12:48
DX: S22.32XA Fracture of one rib, left side, initial encounter for closed fracture (principal); I25.10 Atherosclerotic heart disease of native coronary artery without angina pectoris; E78.5 Hyperlipidemia, unspecified; I10 Essential (primary) hypertension; F17.200 Nicotine dependence, unspecified, uncomplicated; Z79.01 Long term (current) use of anticoagulants; Z79.899 Other long term (current) drug therapy; W01.0XXA Fall on same level from slipping, tripping and stumbling without subsequent striking against object, initial encounter
CPT/HCPCS: 71101; 99284; 96374; J2270

== ENCOUNTER → 2022-11-16 | Outpatient (CLI) | payer MEDICARE ==
--- NOTE | 2022-11-16 11:13 | US ---
EXAMINATION TYPE: US carotid duplex BILAT DATE OF EXAM: 11/16/2022 COMPARISON: NONE CLINICAL INDICATION: Male, 87 years old with history of R42 DIZZINESS; TECHNIQUE: Carotid duplex ultrasound examination. Indirect Doppler criteria was utilized. FINDINGS: EXAM MEASUREMENTS: RIGHT: Peak Systolic Velocity (PSV) cm/sec ----- Right CCA: 83.1 ----- Right ICA: 124.0 ----- Right ECA: 60.6 ICA/CCA ratio: 1.5 RIGHT: End Diastole cm/sec ----- Right CCA: 7.8 ----- Right ICA: 24.2 ----- Right ECA: 0.0 LEFT: Peak Systolic Velocity (PSV) cm/sec ----- Left CCA: 69.9 ----- Left ICA: 174 ----- Left ECA: 312 ICA/CCA ratio: 2.5 LEFT: End Diastole cm/sec ----- Left CCA: 6.7 ----- Left ICA: 22.7 ----- Left ECA: 0.0 VERTEBRALS (direction of flow): Right Vertebral: Antegrade Left Vertebral: Antegrade Rhythm: Normal FRYER LINE HELPER NOTES: Heterogeneous plaque at bilateral bulbs with increased velocities noted at mid Lef t ICA IMPRESSION: Moderate atherosclerotic plaque in the carotid bulbs bilaterally. Less than 50% stenosis of the origi n of the right internal carotid artery. Approximately 50-69% stenosis of the origin of the left inter nal carotid artery. Criteria for Assigning % of Stenosis / Diameter reduction (Estimation based on the indirect measurements of the internal carotid artery velocities (ICA PSV). 1. Normal (no stenosis)=ICA PSV < 125 cm/s: ratio < 2.0: ICA EDV<40 cm/s. 2. Less than 50% stenosis=ICA PSV < 125 cm/s: ratio < 2.0: ICA EDV<40 cm/s. 3. 50 to 69% stenosis=ICA PSV of 125 to 230 cm/s: ration 2.0 ? 4.0: ICA EDV 40-100 cm/s. 4. Greater than 70% stenosis to near occlusion= ICA PSV > 230 cm/s: ratio > 4.0: ICA EDV > 100 cm/s. 5. Near occlusion= ICA PSV velocities may be low or undetectable: variable ratio and ICA EDV. 6. Total occlusion=unable to detect flow.
== END | disposition home or self-care (01) ==
LOC: RADUSWWP 09:24
PROVIDERS: ATTEND Family Medicine
DX: I65.23 Occlusion and stenosis of bilateral carotid arteries (principal)
CPT/HCPCS: 93880

== ENCOUNTER 2022-11-20 03:33 | Emergency (ER) | payer MEDICARE ==
[2022-11-20 03:48] VITALS: TEMP 97
--- NOTE | 2022-11-20 04:45 | ED ---
General Adult HPI - General Chief complaint: Fall Stated complaint: Fall Time Seen by Provider: 11/20/22 03:34 Source: patient, EMS, RN notes reviewed, old records reviewed Mode of arrival: EMS - History of Present Illness Initial comments: 87-year-old male presents status post fall with right shoulder pain. Patient was on the toilet, fell onto his right shoulder. He is currently at the custodial and has been falling more lately. No loss consciousness. No significant head injury. Patient was transported by paramedics. No chest pain or abdominal pain. - Related Data Home Medications Medication Instructions Recorded Confirmed Simvastatin [Zocor] 20 mg PO HS 09/11/14 10/27/22 Latanoprost Ophth [Xalatan 0.005%] 1 drop BOTH EYES HS 01/02/17 10/27/22 Apixaban [Eliquis] 2.5 mg PO BID 08/29/22 10/27/22 Famotidine [Pepcid] 20 mg PO DAILY 08/29/22 10/27/22 Albuterol Inhaler [Ventolin Hfa 1 - 2 puff INHALATION RT-Q6H PRN 10/27/22 10/27/22 Inhaler] Fluticasone/Umeclidin/Vilanter 1 puff INHALATION RT-DAILY PRN 10/27/22 10/27/22 [Trelegy Ellipta 100-62.5-25] Previous Rx's Medication Instructions Recorded Magnesium Oxide [Mag-Ox] 400 mg PO BID 5 Days #10 tablet 11/27/21 Thiamine [Vitamin B-1] 100 mg PO DAILY #30 tab 11/27/21 lisinopriL [Zestril] 5 mg PO DAILY #30 tab 11/27/21 Acetaminophen Tab [Tylenol] 1,000 mg PO Q6HR PRN #30 tablet 10/30/22 Budesonide-Formot 160-4.5 Mcg 2 puff INHALATION RT-BID each 10/30/22 [Symbicort 160-4.5 Mcg Inhaler] Docusate [Colace] 100 mg PO BID cap 10/30/22 INSULIN ASPART (NovoLOG) [NovoLOG 0 unit SQ ACHS each 10/30/22 (formulary)] Ipratropium-Albuterol Nebulize 3 ml INHALATION RT-QID each 10/30/22 [Duoneb 0.5 mg-3 mg/3 ml Soln] Ipratropium-Albuterol Nebulize 3 ml INHALATION RT-QID PRN each 10/30/22 [Duoneb 0.5 mg-3 mg/3 ml Soln] Lidocaine 5% Patch [Lidoderm 5% 1 patch TOPICAL DAILY patch 10/30/22 Patch] Magnesium Hydroxide [Milk of 2,400 mg PO ONCE PRN ml 10/30/22 Magnesia] Metoprolol Tartrate [Lopressor] 25 mg PO BID tab 10/30/22 Pantoprazole [Protonix] 40 mg PO AC-BRKFST tab 10/30/22 cefUROXime axetiL [Ceftin] 500 mg PO BID 4 Days #8 tab 10/30/22 predniSONE 10 mg PO DIRECTED #30 tab 10/30/22 Allergies Allergy/AdvReac Type Severity Reaction Status Date / Time No Known Allergies Allergy Verified 10/26/22 21:10 Review of Systems ROS Statement: Those systems with pertinent positive or pertinent negative responses have been documented in the HPI. ROS Other: All systems not noted in ROS Statement are negative. Past Medical History Past Medical History: Coronary Artery Disease (CAD), Hyperlipidemia, Hypertension Additional Past Medical History / Comment(s): arthritis in back, cataracts History of Any Multi-Drug Resistant Organisms: None Reported Past Surgical History: Heart Catheterization, Hernia Repair, Tonsillectomy Additional Past Surgical History / Comment(s): colonoscopy, iban cataracts, wisdom teeth Past Anesthesia/Blood Transfusion Reactions: No Reported Reaction Past Psychological History: No Psychological Hx Reported Smoking Status: Current every day smoker Past Alcohol Use History: Daily Past Drug Use History: None Reported - Past Family History Father Family Medical History: Cancer Additional Family Medical History / Comment(s): ca of lymph nodes General Exam General appearance: alert, in no apparent distress Head exam: Present: atraumatic, normocephalic Eye exam: Present: normal appearance, PERRL ENT exam: Present: normal exam Neck exam: Present: normal inspection. Absent: tenderness, meningismus Respiratory exam: Present: normal lung sounds bilaterally. Absent: respiratory distress, wheezes Cardiovascular Exam: Present: regular rate, normal rhythm GI/Abdominal exam: Present: soft. Absent: distended, tenderness Extremities exam: Present: other (Crepitus over the right mid clavicle, distal pulses intact, no gross deformity) Neurological exam: Present: alert, oriented X3, CN II-XII intact. Absent: motor sensory deficit Psychiatric exam: Present: normal affect, normal mood Skin exam: Present: warm, dry, intact Course Vital Signs 11/20/22 11/20/22 11/20/22 03:42 05:17 06:26 Temperature 97.0 F L Pulse Rate 77 79 82 Respiratory 19 17 17 Rate Blood Pressure 142/82 121/76 136/67 O2 Sat by Pulse 94 L 97 93 L Oximetry Medical Decision Making - Medical Decision Making Was pt. sent in by a medical professional or institution (, PA, SHIFT BOSS, urgent care, hospital, or custodial...) When possible be specific @ -No Did you speak to anyone other than the patient for history (EMS, parent, family, police, friend...)? What history was obtained from this source @ -No Did you review nursing and triage notes (agree or disagree)? Why? @ -I reviewed and agree with nursing and triage notes Were old charts reviewed (outside hosp., previous admission, EMS record, old EKG, old radiological studies, urgent care reports/EKG's, custodial records)? Report findings @ -No old charts were reviewed Differential Diagnosis (chest pain, altered mental status, abdominal pain women, abdominal pain men, vaginal bleeding, weakness, fever, dyspnea, syncope, headache, dizziness, GI bleed, back pain, seizure, CVA, palpatations, mental health, musculoskeletal)? @ -Traumatic injury of the right shoulder or clavicle status post fall EKG interpreted by me (3pts min.). @ -As above X-rays interpreted by me (1pt min.). @ X-ray of the shoulder negative for fracture dislocation, x-ray of the clavicle shows nondisplaced fracture of the medial one third. CT interpreted by me (1pt min.). @ -CT brain negative for intracranial hemorrhage or mass effect. U/S interpreted by me (1pt. min.). @ -None done What testing was considered but not performed or refused? (CT, X-rays, U/S, labs)? Why? @ -None What meds were considered but not given or refused? Why? @ -None Did you discuss the management of the patient with other professionals (professionals i.e. , PA, SHIFT BOSS, lab, RT, psych nurse, social service coordinator, mechanical design engineer facilities, teacher, account officer, adult protective caseworker)? Give summary @ -No Was smoking cessation discussed for >3mins.? @ -No Was critical care preformed (if so, how long)? @ -No Were there social determinants of health that impacted care today? How? (Homelessness, low income, unemployed, alcoholism, drug addiction, transportation, low edu. Level, literacy, decrease access to med. care, retirement, rehab)? @ -No Was there de-escalation of care discussed even if they declined (Discuss DNR or withdrawal of care, Hospice)? DNR status @ -No What co-morbidities impacted this encounter? (DM, HTN, Smoking, COPD, CAD, Cancer, CVA, ARF, Chemo, Hep., AIDS, mental health diagnosis, sleep apnea, morbid obesity)? @ Frequent fall Was patient admitted / discharged? Hospital course, mention meds given and route, prescriptions, significant lab abnormalities, going to OR and other pertinent info. @ -79-year-old male with fall, pain over the right clavicle. X-ray shows nondisplaced fracture. X-ray of the shoulder negative for fracture dislocation, CT negative for intracranial hemorrhage or mass effect. Patient placed in a sling and given outpatient orthopedic follow-up. Undiagnosed new problem with uncertain prognosis? @ -No Drug Therapy requiring intensive monitoring for toxicity (Heparin, Nitro, Insulin, Cardizem)? @ -No Were any procedures done? @ -No Diagnosis/symptom? @ -Fall, clavicle fracture Acute, or Chronic, or Acute on Chronic? @ Acute Uncomplicated (without systemic symptoms) or Complicated (systemic symptoms)? @ -default Side effects of treatment? @ -No Exacerbation, Progression, or Severe Exacerbation? @ -No Poses a threat to life or bodily function? How? (Chest pain, [place], [place], pneumonia, PE, COPD, DKA, ARF, appy, cholecystitis, CVA, Diverticulitis, Homicidal, Suicidal, threat to staff... and all critical care pts) @ -[Low risk Disposition Clinical Impression: Fall, Right clavicle fracture Disposition: HOME SELF-CARE Condition: Good Instructions (If sedation given, give patient instructions): Clavicle Fracture (ED), Fall Prevention for Older Adults (ED) Is patient prescribed a controlled substance at d/c from ED?: No Referrals: Saturnino Espinoza MD [Primary Care Provider] - 1-2 days Jn Hsu MD [STAFF PHYSICIAN] - 1-2 days Time of Disposition: 07:00
[2022-11-20 05:19] VITALS: RESP 17
[2022-11-20 06:27] VITALS: BP 136/67; PULSE 82
--- NOTE | 2022-11-20 06:36 | CT ---
EXAMINATION TYPE: CT brain wo con DATE OF EXAM: 11/20/2022 COMPARISON: 09/11/2014 HISTORY: Fall Unenhanced CT of the brain was performed. The ventricles, basal cisterns and sulci overlying the cerebral convexities demonstrate moderate enla rgement. There is no evidence for intracranial hemorrhage or sulcal effacement. There is decreased attenuation about the periventricular white matter and deep white matter of both c erebral hemispheres, compatible with chronic small vessel ischemia. Differential diagnosis does inclu de demyelination. No mass effects are seen.No midline shift. Osseous calvarium is intact. If symptoms persist consider MRI. IMPRESSION: 1. Age related atrophic and chronic small vessel ischemic change without acute intracranial process s een at this time.
--- NOTE | 2022-11-20 06:51 | XR ---
EXAMINATION TYPE: XR shoulder complete RT DATE OF EXAM: 11/20/2022 CLINICAL HISTORY: pain TECHNIQUE: Three views of the right shoulder are obtained. COMPARISON: None FINDINGS: There is no acute fracture/dislocation evident. The acromioclavicular and glenohumeral mercy int spaces appear mildly narrowed. The visualized ribs are intact and unremarkable. IMPRESSION: 1. There is no acute fracture or dislocation. ICD 10 NO FRACTURE, INITIAL EVALUATION
--- NOTE | 2022-11-20 06:52 | XR ---
EXAMINATION TYPE: XR clavicle RT DATE OF EXAM: 11/20/2022 CLINICAL HISTORY: pain TECHNIQUE: 2 views of the right clavicle are submitted. COMPARISON: None FINDINGS: There is no acute fracture/dislocation evident. The acromioclavicular and glenohumeral mercy int spaces appear mildly narrowed.. The visualized ribs are intact and unremarkable. IMPRESSION: 1. There is no acute fracture or dislocation. ICD 10 NO FRACTURE, INITIAL EVALUATION
== END 2022-11-20 08:24 | disposition home or self-care (01) ==
LOC: EC 03:33
DX: S42.001A Fracture of unspecified part of right clavicle, initial encounter for closed fracture (principal); I67.82 Cerebral ischemia; I25.10 Atherosclerotic heart disease of native coronary artery without angina pectoris; E78.5 Hyperlipidemia, unspecified; I10 Essential (primary) hypertension; F17.200 Nicotine dependence, unspecified, uncomplicated; Z79.01 Long term (current) use of anticoagulants; Z79.899 Other long term (current) drug therapy; W18.11XA Fall from or off toilet without subsequent striking against object, initial encounter
CPT/HCPCS: 70450; 99285

== ENCOUNTER 2023-01-21 10:53 | Observation (INO) | payer MEDICARE ==
[2023-01-21] MEDS ORDERED: MORPHINE SULFATE 4 MG/ML SYRINGE IVP STA (12:44)
[2023-01-21] MEDS ORDERED: CEFEPIME 2 GM in SODIUM CHLORIDE 0.9% 100 ML IVPB STA (12:44)
[2023-01-21] MEDS ORDERED: KETOROLAC 15 MG/ML 1 ML VIAL IVP STA (12:44)
[2023-01-21] MEDS ORDERED: VANCOMYCIN IV PER PHARMACY 1 EACH MISC MISCELLANE PRN (12:44)
--- NOTE | 2023-01-21 12:59 | ED ---
Skin/Abscess/FB HPI - General Chief complaint: Skin/Abscess/Foreign Body Stated complaint: Cyst on back Time Seen by Provider: 01/21/23 12:24 Source: patient, family, RN notes reviewed Mode of arrival: ambulatory Limitations: no limitations - History of Present Illness Initial comments: This is an 87 year old male who presents to the emergency department for an abscess to his back. States that this started a few days ago and he has been on Cefdinir for 3 days with no relief in symptoms. He has started to get drainage from this, however the abscess has gotten larger and more painful. He saw Dr. Liriano at [facility], who called his PCP regarding the situation. He was instructed to come to the emergency department for IV antibiotics and an MRI for better evaluation of the abscess. He denies any fevers. However, his states that he has been in significant distress and has only been able to lay on his side. MD complaint: abscess/boil - Related Data Home Medications Medication Instructions Recorded Confirmed Simvastatin [Zocor] 20 mg PO HS 09/11/14 10/27/22 Latanoprost Ophth [Xalatan 0.005%] 1 drop BOTH EYES HS 01/02/17 10/27/22 Apixaban [Eliquis] 2.5 mg PO BID 08/29/22 10/27/22 Famotidine [Pepcid] 20 mg PO DAILY 08/29/22 10/27/22 Albuterol Inhaler [Ventolin Hfa 1 - 2 puff INHALATION RT-Q6H PRN 10/27/22 10/27/22 Inhaler] Fluticasone/Umeclidin/Vilanter 1 puff INHALATION RT-DAILY PRN 10/27/22 10/27/22 [Trelegy Ellipta 100-62.5-25] Previous Rx's Medication Instructions Recorded Magnesium Oxide [Mag-Ox] 400 mg PO BID 5 Days #10 tablet 11/27/21 Thiamine [Vitamin B-1] 100 mg PO DAILY #30 tab 11/27/21 lisinopriL [Zestril] 5 mg PO DAILY #30 tab 11/27/21 Acetaminophen Tab [Tylenol] 1,000 mg PO Q6HR PRN #30 tablet 10/30/22 Budesonide-Formot 160-4.5 Mcg 2 puff INHALATION RT-BID each 10/30/22 [Symbicort 160-4.5 Mcg Inhaler] Docusate [Colace] 100 mg PO BID cap 10/30/22 INSULIN ASPART (NovoLOG) [NovoLOG 0 unit SQ ACHS each 10/30/22 (formulary)] Ipratropium-Albuterol Nebulize 3 ml INHALATION RT-QID each 10/30/22 [Duoneb 0.5 mg-3 mg/3 ml Soln] Ipratropium-Albuterol Nebulize 3 ml INHALATION RT-QID PRN each 10/30/22 [Duoneb 0.5 mg-3 mg/3 ml Soln] Lidocaine 5% Patch [Lidoderm 5% 1 patch TOPICAL DAILY patch 10/30/22 Patch] Magnesium Hydroxide [Milk of 2,400 mg PO ONCE PRN ml 10/30/22 Magnesia] Metoprolol Tartrate [Lopressor] 25 mg PO BID tab 10/30/22 Pantoprazole [Protonix] 40 mg PO AC-BRKFST tab 10/30/22 cefUROXime axetiL [Ceftin] 500 mg PO BID 4 Days #8 tab 10/30/22 predniSONE 10 mg PO DIRECTED #30 tab 10/30/22 Allergies Allergy/AdvReac Type Severity Reaction Status Date / Time No Known Allergies Allergy Verified 01/21/23 11:14 Review of Systems ROS Statement: Those systems with pertinent positive or pertinent negative responses have been documented in the HPI. ROS Other: All systems not noted in ROS Statement are negative. Past Medical History Past Medical History: Coronary Artery Disease (CAD), Hyperlipidemia, Hypertension Additional Past Medical History / Comment(s): arthritis in back, cataracts History of Any Multi-Drug Resistant Organisms: None Reported Past Surgical History: Heart Catheterization, Hernia Repair, Tonsillectomy Additional Past Surgical History / Comment(s): colonoscopy, iban cataracts, wisdom teeth Past Anesthesia/Blood Transfusion Reactions: No Reported Reaction Past Psychological History: No Psychological Hx Reported Smoking Status: Light tobacco smoker Past Alcohol Use History: Occasional Past Drug Use History: None Reported - Past Family History Father Family Medical History: Cancer Additional Family Medical History / Comment(s): ca of lymph nodes General Exam Limitations: no limitations General appearance: alert, in no apparent distress Head exam: Present: atraumatic, normocephalic, normal inspection Respiratory exam: Present: normal lung sounds bilaterally. Absent: respiratory distress, wheezes, rales, rhonchi, stridor Cardiovascular Exam: Present: regular rate, normal rhythm, normal heart sounds. Absent: systolic murmur, diastolic murmur, rubs, gallop, clicks Back exam: Present: other (Large erythematous and tender abscess over the thoracic spine with a centralized area containing purulence and overlying dark tissue.) Neurological exam: Present: alert, oriented X3, CN II-XII intact Psychiatric exam: Present: normal affect, normal mood Course Vital Signs 01/21/23 01/21/23 01/21/23 11:09 13:49 15:51 Temperature 97.5 F L Pulse Rate 62 55 L 56 L Respiratory 18 16 16 Rate Blood Pressure 160/79 150/69 149/83 O2 Sat by Pulse 96 97 94 L Oximetry Medical Decision Making - Medical Decision Making This is an 87 year old male who presents to the emergency department for an abscess. Was pt. sent in by a medical professional or institution? @ -His PCP Did you speak to anyone other than the patient for history? @ -His provided the majority of the information. Did you review nursing and triage notes? @ -Yes, and I agree, it is accurate with regards to the patient's symptoms. Were old charts reviewed? @ -No Differential Diagnosis? @ -Differential Abscess: Abscess, phlegmon, cellulitis, tumor, this is not meant to be an all-inclusive list. EKG interpreted by me (3pts min.)? @ -Not obtained X-rays interpreted by me (1pt min.)? @ -Not obtained CT interpreted by me (1pt min.)? @ -Computed tomography scan of the thoracic spine obtained. My interpretation identifies an edematous area near the base of the thoracic spine. U/S interpreted by me (1pt. min.)? @ -Not obtained What testing was considered but not performed? (CT, X-rays, U/S, labs)? Why? @ -None What meds were considered but not given? Why? @ -None Did you discuss the management of the patient with other professionals? @ -Yes, Dr. Chavez, who accepts the patient for admission. I also spoke with Sharee at [facility]. She spoke with Dr. Liriano, who advised an MRI of the thoracic spine as well at consult for infectious disease. Also advised to hold off on IR consult for guided drainage until results of the MRI return regarding the extent of the infection. Did you reconcile home meds? @ -No Was smoking cessation discussed for >3mins.? @ -No Was critical care preformed (if so, how long)? @ -No Were there social determinants of health that impacted care today? How? (Homelessness, low income, unemployed, alcoholism, drug addiction, transportation, low edu. Level, literacy, decrease access to med. care, intermediate, rehab)? @ -No Was there de-escalation of care discussed even if they declined? (Discuss DNR or withdrawal of care, Hospice)? @ -No What co-morbidities impacted this encounter? (DM, HTN, Smoking, COPD, CAD, Cancer, CVA, Hep., AIDS, mental health diagnosis, sleep apnea, morbid obesity)? @ -CAD, HLD, HTN Was patient admitted / discharged? @ -Admitted. Lab work obtained revealing an elevated CRP of 2.7 and no other actionable findings. Patient did have what appeared to be a fairly substantial abscess on physical examination and was extremely uncomfortable. He would barely tolerate even light palpation of this area. Patient reported needing an MRI of his thoracic spine. However, we could not get this done in the emergency department we subsequently obtained a computed tomography scan of the thoracic spine. This revealed at the left mid back at the level of T9-T10 a heterogenous and edematous area measuring 5.4 x 1.5 x 6.4 cm without rim-enhancing fluid collection suggestive of phlegmonous change. Blood cultures were obtained and the patient was started on vancomycin and cefepime. I spoke with [facility]. They advised an MRI of the thoracic spine and consult for infectious disease. They also advised holding off on consult for interventional radiology at this time until the results of the MRI return demonstrating the extent of the infection. Patient admitted to medicine with consults for infectious disease and orthopedics. Undiagnosed new problem with uncertain prognosis? @ -None Drug Therapy requiring intensive monitoring for toxicity (Heparin, Nitro, Insulin, Cardizem)? @ -None Were any procedures done? @ -None Diagnosis/symptom? @ -Phlegmonous cellulitis, abscess on back Acute, or Chronic, or Acute on Chronic? @ -Acute Uncomplicated (without systemic symptoms) or Complicated (systemic symptoms)? @ -Uncomplicated Side effects of treatment? @ -None Exacerbation, Progression, or Severe Exacerbation] @ -Not applicable Poses a threat to life or bodily function? @ -Yes This case was discussed in detail with the attending ED physician, Dr. Waldrop. Presentation, findings, and treatment plan discussed in detail as well. - Lab Data Result diagrams: 01/21/23 13:13 01/21/23 13:13 Lab Results 01/21/23 01/21/23 01/21/23 Range/Units 13:13 13:13 13:13 WBC 5.3 (3.8-10.6) k/uL RBC 3.74 L (4.30-5.90) m/uL Hgb 10.6 L (13.0-17.5) gm/dL Hct 32.3 L (39.0-53.0) % MCV 86.3 (80.0-100.0) fL MCH 28.3 (25.0-35.0) pg MCHC 32.7 (31.0-37.0) g/dL RDW 14.7 (11.5-15.5) % Plt Count 293 (150-450) k/uL MPV 8.6 Neutrophils % (Manual) 58 % Lymphocytes % (Manual) 22 % Monocytes % (Manual) 13 % Eosinophils % (Manual) 5 % Basophils % (Manual) 2 % Neutrophils # (Manual) 3.07 (1.3-7.7) k/uL Lymphocytes # (Manual) 1.17 (1.0-4.8) k/uL Monocytes # (Manual) 0.69 (0-1.0) k/uL Eosinophils # (Manual) 0.27 (0-0.7) k/uL Basophils # (Manual) 0.11 (0-0.2) k/uL Nucleated RBCs 0 (0-0) /100 WBC Manual Slide Review Performed Poikilocytosis (manual Present Sodium 133 L (137-145) mmol/L Potassium 5.4 H (3.5-5.1) mmol/L Chloride 99 (98-107) mmol/L Carbon Dioxide 23 (22-30) mmol/L Anion Gap 11 mmol/L BUN 22 H (9-20) mg/dL Creatinine 1.08 (0.66-1.25) mg/dL Est GFR (CKD-EPI)AfAm 70 (>60 ml/min/1.73 sqM) Est GFR (CKD-EPI)NonAf 61 (>60 ml/min/1.73 sqM) Glucose 107 H (74-99) mg/dL Plasma Lactic Acid Lucien 1.1 (0.7-2.0) mmol/L Calcium 9.2 (8.4-10.2) mg/dL Total Bilirubin 0.7 (0.2-1.3) mg/dL AST 28 (17-59) U/L ALT 15 (4-49) U/L Alkaline Phosphatase 68 (38-126) U/L C-Reactive Protein 2.7 H (<1.0) mg/dL Total Protein 6.8 (6.3-8.2) g/dL Albumin 3.8 (3.5-5.0) g/dL - Radiology Data Radiology results: report reviewed, image reviewed Disposition Clinical Impression: Phlegmonous cellulitis, Abscess of back Disposition: ADMITTED IP TO THIS [facility] Referrals: Saturnino Espinoza MD [Primary Care Provider] - 1-2 days
[2023-01-21] MEDS ORDERED: VANCOMYCIN 1,250 MG in SODIUM CHLORIDE 0.9% 250 ML IVPB ONE (13:15)
[2023-01-21 14:13] LABS: ALT 15 U/L (4-49); AST 28 U/L (17-59); African American GFR (CKD) 70 (>60 ml/min/1.73 sqM); Albumin 3.8 g/dL (3.5-5.0); Alkaline Phosphatase 68 U/L (38-126); Anion Gap 11 mmol/L; Blood Urea Nitrogen 22 mg/dL (9-20); C Reactive Protein 2.7 mg/dL (<1.0); Calcium 9.2 mg/dL (8.4-10.2); Carbon Dioxide 23 mmol/L (22-30); Chloride 99 mmol/L (98-107); Glucose 107 mg/dL (74-99); Non-African American GFR(CKD) 61 (>60 ml/min/1.73 sqM); Sodium 133 mmol/L (137-145); Total Bilirubin 0.7 mg/dL (0.2-1.3); Total Protein 6.8 g/dL (6.3-8.2)
[2023-01-21 14:18] LABS: Potassium 5.4 mmol/L (3.5-5.1)
[2023-01-21 14:48] LABS: HCT 32.3 % (39.0-53.0); HGB 10.6 gm/dL (13.0-17.5); MCH 28.3 pg (25.0-35.0); MCHC 32.7 g/dL (31.0-37.0); MCV 86.3 fL (80.0-100.0); Mean Platelet Volume 8.6; Platelet Count 293 k/uL (150-450); RBC 3.74 m/uL (4.30-5.90); RDW 14.7 % (11.5-15.5); WBC 5.3 k/uL (3.8-10.6)
--- NOTE | 2023-01-21 15:20 | CT ---
EXAMINATION TYPE: CT thoracic spine w con CT DLP: 783.5 mGycm, Automated exposure control for dose reduction was used. DATE OF EXAM: 01/21/2023 3:08 PM COMPARISON: CT chest 10/26/2022. CLINICAL INDICATION:Male, 87 years old with history of Abscess on back; PHH, Abscess on middle to upp er back in center of back/spine TECHNIQUE: Axial images of the thoracic spine were obtained after the uneventful administration of 80 mL of Isovue-370 intravenously. Coronal and sagittal reformats were performed. FINDINGS: Healing left posterior 12th, 11th, and 10th rib fractures with callus formation. Fracture l [place] are still visible. The thoracic vertebral bodies have preserved heights. No spondylolisthesis. I ncreased thoracic kyphosis. Intervertebral discs and osseous structures have normal appearance. No s ignificant neural foraminal or central canal stenosis. Mild multilevel displacement with endplate scl erosis, vacuum disc disease, and anterior osteophytosis. There is left posterior back near midline sk in thickening with surrounding heterogenous edema without organized rim enhancing fluid collection at the level of T9-T10. This region measures grossly 5.4 x 1.5 x 6.4 cm in TV, AP, CC dimensions. Atherosclerotic calcification of the aorta. Bibasilar dependent subsequent atelectasis. Moderate to s evere centrilobular emphysematous changes. Moderate coronary artery calcifications. IMPRESSION: 1. Healing left posterior 10th through 12th rib fractures with callus formation. Fracture lines are still visible. 2. Left mid back at the level T9-T10 is heterogenous edematous region without rim-enhancing fluid co llection. Findings suggest phlegmonous change. 3. No spinal canal or neural foraminal stenosis is identified. 4. Mild multilevel degenerative disc disease. 5. Moderate to severe COPD changes.
[2023-01-21 15:33] LABS: Basophils # (M) 0.11 k/uL (0-0.2); Eosinophils # (M) 0.27 k/uL (0-0.7); Lymphocytes # (M) 1.17 k/uL (1.0-4.8); Monocytes # (M) 0.69 k/uL (0-1.0); Neutrophils # (M) 3.07 k/uL (1.3-7.7); Neutrophils % (M) 58 %; Nucleated Red Blood Cells 0 /100 WBC (0-0); Total Cells Counted 100
[2023-01-21 15:34] LABS: Poikilocytosis (M) Present
[2023-01-21] MEDS ORDERED: ONDANSETRON 4 MG/2 ML VIAL IVP PRN (15:53)
[2023-01-21] MEDS ORDERED: MORPHINE SULFATE 2 MG/ML SYRINGE IV PRN (15:53)
[2023-01-21] MEDS ORDERED: NALOXONE 0.4 MG/ML 1 ML VIAL IV PRN (15:53)
[2023-01-21] MEDS ORDERED: ACETAMINOPHEN TAB 325 MG TAB PO PRN (15:53)
[2023-01-21] MEDS ORDERED: HYDROcodone/APAP 5-325MG 1 EACH TAB PO PRN (15:53)
[2023-01-22 02:14] LABS: Erythrocyte Sedimentation Rate 44 mm/Hr (0-20)
[2023-01-22] MEDS: VANCOMYCIN 1,250 MG in SODIUM CHLORIDE 0.9% 250 ML IVPB SCH ×2 (05:00→21:57)
--- NOTE | 2023-01-22 05:33 | P.CONS ---
History of Present Illness - Reason for Consult Consult date: 01/21/23 Phlegmonous cellulitis abscess Requesting physician: Ramila Travis - Chief Complaint Sore to the back x few days - History of Present Illness Patient is a 87-year-old male with a past medical his significant for hypertension hyperlipidemia coronary artery disease patient has been brought into the hospital for evaluation of abscess to his back apparently it may have been going on for a while however has been noticed about 4 to 5 days ago with the patient was currently complaining of discomfort and pain to the area, described the pain to be more of a dull aching at times sharp 5-6 out of 10 no radiation denies any drainage patient has been treated with oral cefdinir for 3 days without any relief patient on presentation to the hospital was afebrile and no fever has been recorded subsequently patient did have a normal white count creatinine was normal liver enzymes are normal CRP is 2.7 sed rate was 44 patient did have a thoracic spine CT which shows mid back at T9-T10 heterogeneous edema without ring enhancement findings suggestive of phlegmonous changes, patient was started on vancomycin infectious disease was consulted for further management of antibiotic therapy Review of Systems Positive point and negatives has been mentioned in the HPI, complete review of systems was performed and all other systems are negative Past Medical History Past Medical History: Coronary Artery Disease (CAD), Hyperlipidemia, Hypertension Additional Past Medical History / Comment(s): arthritis in back, cataracts History of Any Multi-Drug Resistant Organisms: None Reported Past Surgical History: Heart Catheterization, Hernia Repair, Tonsillectomy Additional Past Surgical History / Comment(s): colonoscopy, iban cataracts, wisdom teeth Past Anesthesia/Blood Transfusion Reactions: No Reported Reaction Past Psychological History: No Psychological Hx Reported Smoking Status: Light tobacco smoker Past Alcohol Use History: Occasional Past Drug Use History: None Reported - Past Family History Father Family Medical History: Cancer Additional Family Medical History / Comment(s): ca of lymph nodes Medications and Allergies Home Medications Medication Instructions Recorded Confirmed Type Latanoprost Ophth [Xalatan 0.005%] 1 drop BOTH EYES HS 01/02/17 01/21/23 History Thiamine [Vitamin B-1] 100 mg PO DAILY #30 tab 11/27/21 01/21/23 Rx lisinopriL [Zestril] 5 mg PO DAILY #30 tab 11/27/21 01/21/23 Rx Apixaban [Eliquis] 2.5 mg PO BID 08/29/22 01/21/23 History Famotidine [Pepcid] 20 mg PO DAILY 08/29/22 01/21/23 History Albuterol Inhaler [Ventolin Hfa 2 puff INHALATION RT-Q6H PRN 10/27/22 01/21/23 History Inhaler] Ipratropium-Albuterol Nebulize 3 ml INHALATION RT-QID PRN each 10/30/22 01/21/23 Rx [Duoneb 0.5 mg-3 mg/3 ml Soln] Metoprolol Tartrate [Lopressor] 25 mg PO BID tab 10/30/22 01/21/23 Rx Atorvastatin [Lipitor] 20 mg PO HS 01/21/23 01/21/23 History Cefdinir [Omnicef] 300 mg PO BID 01/21/23 01/21/23 History Magnesium Hydroxide [Milk of 2,400 mg PO DAILY PRN 01/21/23 01/21/23 History Magnesia] Omeprazole [PriLOSEC] 20 mg PO DAILY 01/21/23 01/21/23 History Allergies Allergy/AdvReac Type Severity Reaction Status Date / Time No Known Allergies Allergy Verified 01/21/23 16:31 Physical Exam Vitals: Vital Signs Temp Pulse Resp BP Pulse Ox 01/21/23 15:51 56 L 16 149/83 94 L 01/21/23 13:49 55 L 16 150/69 97 01/21/23 11:09 97.5 F L 62 18 160/79 96 Intake and Output 01/21/23 01/21/23 01/21/23 06:59 14:59 22:59 Other: Weight 72.575 kg GENERAL DESCRIPTION: Elderly male lying in bed, no distress. No tachypnea or accessory muscle of respiration use. HEENT: Shows Pallor , no scleral icterus. Oral mucous membrane is dry. No pha ryngeal erythema or thrush NECK: Trachea central, no thyromegaly. LUNGS: Unlabored breathing. Clear to auscultation anteriorly. No wheeze or crackle. HEART: S1, S2, regular rate and rhythm. No loud murmur ABDOMEN: Soft, no tenderness , guarding or rigidity, no organomegaly EXTREMITIES: No edema of feet. SKIN: Mid back area did have an area off swelling redness with some necrotic tissue and purulent drainage was cultured. NEUROLOGICAL: The patient is awake, alert, oriented x3, mood and affect normal. Results CBC & Chem 7: 01/21/23 13:13 01/22/23 06:17 Labs: Abnormal Lab Results - Last 24 Hours (Table) 01/21/23 01/21/23 Range/Units 13:13 13:13 RBC 3.74 L (4.30-5.90) m/uL Hgb 10.6 L (13.0-17.5) gm/dL Hct 32.3 L (39.0-53.0) % Sodium 133 L (137-145) mmol/L Potassium 5.4 H (3.5-5.1) mmol/L BUN 22 H (9-20) mg/dL Glucose 107 H (74-99) mg/dL C-Reactive Protein 2.7 H (<1.0) mg/dL Assessment and Plan (1) Abscess of back Current Visit: Yes Status: Acute Code(s): L02.212 - CUTANEOUS ABSCESS OF BACK [ANY PART, EXCEPT BUTTOCK] SNOMED Code(s): 412354090 Plan: 1patient with the mid back likely infected pressure ulcer as there was evidence of slight purulent drainage on pressure which was cultured likely from gram- positive skin ishmael that has failed outpatient oral symptomatic therapy 2-await evaluation by orthopedics and drainage of this area along with deep culture 3-vancomycin pharmacy to dose with a target trough of 15 while watching kidney function and Vanco trough closely. We will follow on clinical condition and cultures to further adjust medication if needed Thank you for this consultation we will follow the patient along with you Dictation was produced using [employer] dictation software. please excuse any grammatical, word or spelling errors. Time with Patient: Greater than 30
[2023-01-22 06:53] LABS: African American GFR (CKD) 62 (>60 ml/min/1.73 sqM); Non-African American GFR(CKD) 53 (>60 ml/min/1.73 sqM)
--- NOTE | 2023-01-22 08:43 | MR ---
EXAMINATION TYPE: MR thoracic spine wo/w con DATE OF EXAM: 01/21/2023 10:06 PM CLINICAL INDICATION:Male, 87 years old with history of Phlegmon on mid back, Phlegmonous ,cellulitis mid back. COMPARISON: 12/06/2011, CT 01/21/2023. TECHNIQUE: Multi planar, multi sequence imaging was performed utilizing: T1-weighted, short-tau inver lito recovery and T2-weighted of the thoracic spine. IV Contrast: 7 cc Gadavist (none if empty) FINDINGS: Alignment: Increased kyphotic alignment.. Vertebral bodies have preserved heights. Spinal cord: Spinal cord is within normal limits for signal. Discs: Intervertebral disc signal is maintained. No evidence of significant spinal canal or neural fo raminal stenosis. There is no evidence of extradural defects or central spinal canal narrowing at any thoracic vertebral body level. Osseous structures: Heterogenous bone marrow signal. No abnormal bony edema on inversion recovery seq uences. Multilevel osteophyte formation and facet joint arthropathy. Scattered disc space narrowing. There is scattered osteophytes which mildly impress upon the anterior spinal cord at multiple levels in the midthoracic spine. T12 vertebral body fracture without bony edema suggesting remote fracture. Soft tissue the back demonstrate high PD signal without evidence for organizing fluid collection. No abnormal bony edema or edema extending into the spinal canal. Post contrast enhancement of the soft t issues. IMPRESSION: 1. Soft tissue phlegmonous/cellulitis change of the mid back without evidence for extension into the spine. 2. Multilevel degeneration changes with osteophytes which mildly impresses upon the spinal cord at m ultiple levels in the midthoracic spine. No evidence for abnormal cord signal. The spinal canal and n eural foramen are patent. 3. Remote T12 vertebral body fracture as seen on prior CT with sclerotic line extending to the verte brae.
--- NOTE | 2023-01-22 09:01 | P.CNOR ---
History of Present Illness - [facility] Consult date: 01/22/23 Requesting physician: Ramila Travis Consult reason: other (Thoracic pressure ulcer infection) History of present illness: Patient is a very pleasant 87-year-old male who is seen and examined at the bedside for further evaluation of his thoracic spine. He had descended to our office at [facility] yesterday for treatment evaluation of his clavicle. He is known have a clavicle fracture that has been healing without any difficulty. While there they were talking about a pressure ulcer infection to his thoracic spine. Patient states abscesses only been over the past several days. He had been on antibiotic medication without any significant benefit. It was recommended he present to the emergency department for further evaluation. After evaluation he was admitted for further treatment evaluation. He has been seen by Dr. Fisher in infectious disease. Cultures were taking the results pending. He is been started on vancomycin. Patient states he does have pain isolated that his thoracic spine along the midline. He does have some increased kyphosis near the pressure ulcer infection site. He denies any lower extremity weakness and radiculopathy bilaterally. He has good range of motion of his lower extremities. He has had CT and MRI imaging of his thoracic spine. He denies specific injury to his thoracic spine. He is admitted to medicine. His other medical diagnoses include coronary artery disease, hyperlipidemia, and hypertension. Currently he is not complaining of any other symptoms at the bedside. Past Medical History Past Medical History: Coronary Artery Disease (CAD), Hyperlipidemia, Hypertension Additional Past Medical History / Comment(s): arthritis in back, cataracts History of Any Multi-Drug Resistant Organisms: None Reported Past Surgical History: Heart Catheterization, Hernia Repair, Tonsillectomy Additional Past Surgical History / Comment(s): colonoscopy, iban cataracts, wisdom teeth Past Anesthesia/Blood Transfusion Reactions: No Reported Reaction Past Psychological History: No Psychological Hx Reported Smoking Status: Light tobacco smoker Past Alcohol Use History: Occasional Past Drug Use History: None Reported - Past Family History Father Family Medical History: Cancer Additional Family Medical History / Comment(s): ca of lymph nodes Medications and Allergies Home Medications Medication Instructions Recorded Confirmed Type Latanoprost Ophth [Xalatan 0.005%] 1 drop BOTH EYES HS 01/02/17 01/21/23 History Thiamine [Vitamin B-1] 100 mg PO DAILY #30 tab 11/27/21 01/21/23 Rx lisinopriL [Zestril] 5 mg PO DAILY #30 tab 11/27/21 01/21/23 Rx Apixaban [Eliquis] 2.5 mg PO BID 08/29/22 01/21/23 History Famotidine [Pepcid] 20 mg PO DAILY 08/29/22 01/21/23 History Albuterol Inhaler [Ventolin Hfa 2 puff INHALATION RT-Q6H PRN 10/27/22 01/21/23 History Inhaler] Ipratropium-Albuterol Nebulize 3 ml INHALATION RT-QID PRN each 10/30/22 01/21/23 Rx [Duoneb 0.5 mg-3 mg/3 ml Soln] Metoprolol Tartrate [Lopressor] 25 mg PO BID tab 10/30/22 01/21/23 Rx Atorvastatin [Lipitor] 20 mg PO HS 01/21/23 01/21/23 History Cefdinir [Omnicef] 300 mg PO BID 01/21/23 01/21/23 History Magnesium Hydroxide [Milk of 2,400 mg PO DAILY PRN 01/21/23 01/21/23 History Magnesia] Omeprazole [PriLOSEC] 20 mg PO DAILY 01/21/23 01/21/23 History Allergies Allergy/AdvReac Type Severity Reaction Status Date / Time No Known Allergies Allergy Verified 01/21/23 16:31 Physical Examination Physical exam: Patient is awake, alert, and oriented 3 Vital signs stable Good chest excursion with deep inspiration and expiration Abdomen soft nontender Examination of lumbar spine reveals skin is intact with no abrasions, lacerations, or bruises; no erythema, purulence or signs of infection Examination of the thoracic spine shows some increased kyphosis At the level of increased thoracic kyphosis, there is evidence of pressure ulcer infection with open wound with some purulent fluid Superficial skin tears around the pressure ulcer infection area Pressure ulcer infection appears to be round and approximately 40 mm across Superficial pressure ulcer is elevated with erythema and some mild drainage Dorsiflexion, plantarflexion, and extensor hallucis longus positive sustained bilaterally Lower extremity strength 5/5 bilaterally Patient is able to sit up at the bedside independently without difficulty Good active range of motion of bilateral lower extremities independently without difficulty Straight leg test negative bilateral lower extremities Negative Lasegue's test bilaterally No signs or symptoms of DVT; no calf pain Neurovascularly intact Results Pertinent studies: CT of the thoracic spine taken on 01/21/2023: Left mid back level at approximately T9-10 heterogeneous edematous region without rim enhancing fluid collection in which findings suggest phlegmonous change; multilevel thoracic degenerative disc disease; no spinal canal or neural foraminal stenosis identified; healing posterior left 10th, 11th, and 12 rib fractures with callus formation MRI of the thoracic spine taken on 01/21/2023: Soft tissue phlegmon as last cellulitis change of the mid back without evidence for extension into the spine - Labs Labs: Abnormal Lab Results - Last 24 Hours (Table) 01/21/23 01/21/23 Range/Units 13:13 13:13 RBC 3.74 L (4.30-5.90) m/uL Hgb 10.6 L (13.0-17.5) gm/dL Hct 32.3 L (39.0-53.0) % ESR 44 H (0-20) mm/Hr Sodium 133 L (137-145) mmol/L Potassium 5.4 H (3.5-5.1) mmol/L BUN 22 H (9-20) mg/dL Glucose 107 H (74-99) mg/dL C-Reactive Protein 2.7 H (<1.0) mg/dL H & H 01/21/23 Range/Units 13:13 Hgb 10.6 L (13.0-17.5) gm/dL Hct 32.3 L (39.0-53.0) % Result Diagrams: 01/21/23 13:13 01/22/23 06:17 Assessment and Plan Assessment: Assessment: Midthoracic pressure ulcer infection Midthoracic heterogeneous edematous region without rim enhancing fluid collection to suggest phlegmonous change Soft tissue phlegmonous/cellulitis change of the mid thoracic spine without evidence for extension into the spine Thoracic back pain Failed outpatient antibiotics Hypertension Hyperlipidemia Coronary artery disease Healing left hand, 11th, 12th rib fractures (1) Thoracic back pain Current Visit: Yes Status: Acute Code(s): M54.6 - PAIN IN THORACIC SPINE SNOMED Code(s): 544343880 (2) Hypertension Current Visit: Yes Status: Acute Code(s): I10 - ESSENTIAL (PRIMARY) HYPERTENSION SNOMED Code(s): 52286694 (3) Hyperlipidemia Current Visit: Yes Status: Acute Code(s): E78.5 - HYPERLIPIDEMIA, UNSPECIFIED SNOMED Code(s): 69854423 (4) Coronary artery disease Current Visit: Yes Status: Acute Code(s): I25.10 - ATHSCL HEART DISEASE OF [place] CORONARY ARTERY W/O ANG PCTRS SNOMED Code(s): 53493780 (5) Infected pressure ulcer Current Visit: Yes Status: Acute Code(s): L89.90 - PRESSURE ULCER OF UNSPECIFIED SITE, UNSPECIFIED STAGE; L08.9 - LOCAL INFECTION OF THE SKIN AND SUBCUTANEOUS TISSUE, UNSP SNOMED Code(s): 721432188 (6) Phlegmonous cellulitis Current Visit: Yes Status: Acute Code(s): L02.91 - CUTANEOUS ABSCESS, UNSPECIFIED SNOMED Code(s): 974514850 Plan: Plan: 1. Patient does have some increased kyphosis at his thoracic spine and has had pressure ulcer infection over the past several days at his mid thoracic spine near this kyphotic curvature. He states he had been on outpatient oral antibiotics without significant benefit. As the infection was failing to improve, it was recommended he presents [facility] for further evaluation. CT and MRI imaging of the thoracic spine has been performed. Culture was taken by infectious disease with results pending. He has been started on vancomycin. CT imaging states there is evidence of left mid back level at approximately T9-10 heterogeneous edematous region without rim enhancin g fluid collection in which findings suggest phlegmonous change in thoracic MRI imaging states there is evidence of soft tissue phlegmonous/cellulitis change of the mid thoracic spine without evidence for extension into the spine. The pressure ulcer infection appears to be superficial. Currently, patient will be discussed in detail with Dr. Regino Maza and we will plan to review his thoracic MRI and CT imaging to determine if the patient needs further treatment with possible incision and drainage with deep culture. We will determine a plan care proceeding forward. We will continue to follow with the patient. Patient will currently continue with IV antibiotics per infectious disease. Cultures are currently pending. 2. Patient will continue be seen and examined by medicine for his multiple other medical diagnoses.. Time with Patient: Greater than 30
[2023-01-22] MEDS ORDERED: IPRATROPIUM-ALBUTEROL 3 ML NEB INHALATION PRN (09:19)
[2023-01-22] MEDS ORDERED: ALBUTEROL HFA INHALER INHALATION PRN (09:19)
[2023-01-22] MEDS: THIAMINE 100 MG TAB PO SCH (09:49)
[2023-01-22] MEDS: METOPROLOL TARTRATE 25 MG TAB PO SCH ×2 (09:49→21:30)
[2023-01-22] MEDS: PANTOPRAZOLE 40 MG TABLET PO SCH (09:50)
[2023-01-22] MEDS: lisinopriL 5 MG TAB PO SCH (09:50)
--- NOTE | 2023-01-22 10:48 | US ---
EXAMINATION TYPE: US mass soft tissue chest/back DATE OF EXAM: 01/22/2023 COMPARISON: CT thoracic spine 01/21/2023, MRI of thoracic spine 01/21/2023 CLINICAL INDICATION: Male, 87 years old with history of abscess; Lump on back. TECHNIQUE: Multiple grayscale ultrasound images of the patient's abnormality in the back were obtain ed. FINDINGS/IMPRESSION: Scanned area of concern with no abscess visualized. Phlegmonous change was iden tified within this region corresponding to prior imaging.
[2023-01-22 12:15] LABS: Anion Gap 9 mmol/L; Blood Urea Nitrogen 20 mg/dL (9-20); Calcium 9.2 mg/dL (8.4-10.2); Carbon Dioxide 25 mmol/L (22-30); Chloride 101 mmol/L (98-107); Glucose 83 mg/dL (74-99); Potassium 4.3 mmol/L (3.5-5.1); Sodium 135 mmol/L (137-145)
--- NOTE | 2023-01-22 12:27 | P.HPIM ---
History of Present Illness H&P Date: 01/22/23 Chief Complaint: Back pain * 87-year-old gentleman with past medical history significant for coronary artery disease, hyperlipidemia, hypertension, cardiomyopathy, atrial fibri llation sent in from [place] office due to worsening back infection. Patient was sent in for evaluation of abscess of his back patient has been complaining of back discomfort. The patient was started on outpatient antibiotic cefdinir. He started to no drainage. And the abscess was noted to get lar melissa. Patient was instructed to come to emergency department for IV antibiotics and MRI for better evaluation * Workup initiated in ER include hepatology which were WBC of 5.3 hemoglobin 10.6 platelet count of 293. Serum chemistry showed sodium 133 potassium 5.4 chloride 99 by mouth and 22 And 1.08 CRP 2.7 * Patient had an MRI thoracic spine done which showed soft tissue cellulitis. Mattress changes and mid back without extension into spine * Consultations obtained from orthopedic as well as infectious disease REVIEW OF SYSTEMS: Back pain, abscess CONSTITUTIONAL: No fever, no malaise, no fatigue. HEENT: No recent visual problems or hearing problems. Denied any sore throat. CARDIOVASCULAR: No chest pain, orthopnea, PND, no palpitations, no syncope. PULMONARY: No shortness of breath, no cough, no hemoptysis. GASTROINTESTINAL: No diarrhea, no nausea, no vomiting, no abdominal pain. NEUROLOGICAL: No headaches, no weakness, no numbness. HEMATOLOGICAL: Denies any bleeding or petechiae. GENITOURINARY: Denies any burning micturition, frequency, or urgency. MUSCULOSKELETAL/RHEUMATOLOGICAL: Denies any joint pain, swelling, or any muscle pain. ENDOCRINE: Denies any polyuria or polydipsia. PHYSICAL EXAMINATION: GENERAL: The patient is alert and oriented x3, not in any acute distress. Well developed, well nourished. HEENT: Pupils are round and equally reacting to light. EOMI. No scleral icterus. No conjunctival pallor. Normocephalic, atraumatic. No pharyngeal erythema. No thyromegaly. CARDIOVASCULAR: S1 and S2 present. No murmurs, rubs, or gallops. PULMONARY: Chest is clear to auscultation, no wheezing or crackles. ABDOMEN: Soft, nontender, nondistended, normoactive bowel sounds. No palpable organomegaly. MUSCULOSKELETAL: Back discomfort, skin abscess, purulebt discharge EXTREMITIES: No cyanosis, clubbing, or pedal edema. NEUROLOGICAL: Gross neurological examination did not reveal any focal deficits. SKIN: No rashes. Past Medical History Past Medical History: Coronary Artery Disease (CAD), Hyperlipidemia, Hypertension Additional Past Medical History / Comment(s): arthritis in back, cataracts History of Any Multi-Drug Resistant Organisms: None Reported Past Surgical History: Heart Catheterization, Hernia Repair, Tonsillectomy Additional Past Surgical History / Comment(s): colonoscopy, iban cataracts, w isdom teeth Past Anesthesia/Blood Transfusion Reactions: No Reported Reaction Past Psychological History: No Psychological Hx Reported Smoking Status: Light tobacco smoker Past Alcohol Use History: Occasional Past Drug Use History: None Reported - Past Family History Father Family Medical History: Cancer Additional Family Medical History / Comment(s): ca of lymph nodes Medications and Allergies Home Medications Medication Instructions Recorded Confirmed Type Latanoprost Ophth [Xalatan 0.005%] 1 drop BOTH EYES HS 01/02/17 01/21/23 History Thiamine [Vitamin B-1] 100 mg PO DAILY #30 tab 11/27/21 01/21/23 Rx lisinopriL [Zestril] 5 mg PO DAILY #30 tab 11/27/21 01/21/23 Rx Apixaban [Eliquis] 2.5 mg PO BID 08/29/22 01/21/23 History Famotidine [Pepcid] 20 mg PO DAILY 08/29/22 01/21/23 History Albuterol Inhaler [Ventolin Hfa 2 puff INHALATION RT-Q6H PRN 10/27/22 01/21/23 History Inhaler] Ipratropium-Albuterol Nebulize 3 ml INHALATION RT-QID PRN each 10/30/22 01/21/23 Rx [Duoneb 0.5 mg-3 mg/3 ml Soln] Metoprolol Tartrate [Lopressor] 25 mg PO BID tab 10/30/22 01/21/23 Rx Atorvastatin [Lipitor] 20 mg PO HS 01/21/23 01/21/23 History Cefdinir [Omnicef] 300 mg PO BID 01/21/23 01/21/23 History Magnesium Hydroxide [Milk of 2,400 mg PO DAILY PRN 01/21/23 01/21/23 History Magnesia] Omeprazole [PriLOSEC] 20 mg PO DAILY 01/21/23 01/21/23 History Allergies Allergy/AdvReac Type Severity Reaction Status Date / Time No Known Allergies Allergy Verified 01/21/23 16:31 Physical Exam Vitals: Vital Signs Temp Pulse Pulse Resp BP BP Pulse Ox 01/22/23 09:06 97.9 F 64 17 131/64 94 L 01/22/23 02:00 60 16 130/69 95 01/21/23 20:52 97.7 F 63 18 123/65 96 01/21/23 20:00 63 18 01/21/23 18:14 97.5 F L 56 L 16 149/83 94 L 01/21/23 15:51 56 L 16 149/83 94 L 01/21/23 13:49 55 L 16 150/69 97 01/21/23 11:09 97.5 F L 62 18 160/79 96 Intake and Output 01/21/23 01/22/23 01/22/23 22:59 06:59 14:59 Intake Total 250 250 Balance 250 250 Intake: Intake, IV Titration 250 Amount Vancomycin 1,250 mg In 250 Sodium Chloride 0.9% 250 ml @ 125 mls/hr IVPB Q16H [facility] Rx#:[id number] Oral 250 Other: Voiding Method Toilet Weight 72.575 kg Results CBC & Chem 7: 01/21/23 13:13 01/22/23 06:17 Labs: Abnormal Lab Results - Last 24 Hours (Table) 01/21/23 01/21/23 Range/Units 13:13 13:13 RBC 3.74 L (4.30-5.90) m/uL Hgb 10.6 L (13.0-17.5) gm/dL Hct 32.3 L (39.0-53.0) % ESR 44 H (0-20) mm/Hr Sodium 133 L (137-145) mmol/L Potassium 5.4 H (3.5-5.1) mmol/L BUN 22 H (9-20) mg/dL Glucose 107 H (74-99) mg/dL C-Reactive Protein 2.7 H (<1.0) mg/dL Thrombosis Risk Factor Assmnt - DVT/VTE Prophylaxis DVT/VTE Prophylaxis: Mechanical Prophylaxis ordered - Choose All That Apply Each Risk Factor Represents 3 Points: Age 75 years or older Thrombosis Risk Factor Assessment Total Risk Factor Score: 3 Thrombosis Risk Factor Assessment Level: Moderate Risk Assessment and Plan Assessment: Assessment and plan * Purulent cellulitis of back with abcess with out spine involvement T spine area * History of atrial fibrillation on anticoagulation * Hyperlipidemia * Hypertension * Coronary artery disease * Hyperkalemia on admission * Consult obtained from infectious disease, orthospine * In regards to cellulitis Continue patient on IV vancomycin appreciate input from infectious disease' Follow-up on blood cultures * In regards to history of atrial fibrillation patient on metoprolol, Eliquis on hold in anticipation of surgical intervention * In regards to hypertension continue lisinopril and metoprolol * In regards to hyperkalemia and renal function followed up follow-up potassium levels within normal limits * CODE STATUS is full code
[2023-01-22] MEDS: SODIUM CHLORIDE 0.9% 1,000 ML IV SCH (13:28)
--- NOTE | 2023-01-22 15:30 | P.PN ---
Subjective Progress Note Date: 01/22/23 Principal diagnosis: Midback abscess Patient is a 87-year-old male with a past medical his significant for hypertension hyperlipidemia coronary artery disease patient has been brought into the hospital for evaluation of abscess to his back, worse CT and MRI did shows phlegmonous cellulitis. On today's evaluation that is 01/22/2023, the patient remains to be afebrile the patient is breathing comfortably on room air, the patient denies having any chest pain shortness of breath or cough, patient denies abdominal pain and no nausea/vomiting /diarrhea, patient pain to the mid back has slightly decreased in intensity Patient did have white count of 5.3, creatinine is 1.21 cultures are currently pending Objective - Vital Signs Vital signs: Vital Signs Temp 97.9 F 01/22/23 09:06 Pulse 64 01/22/23 09:06 Resp 17 01/22/23 09:06 BP 131/64 01/22/23 09:06 Pulse Ox 94 L 01/22/23 09:06 FiO2 Intake & Output 01/21/23 01/22/23 01/22/23 18:59 06:59 18:59 Intake Total 500 Balance 500 Weight 72.575 kg Intake: Intake, IV Titration 250 Amount Vancomycin 1,250 mg In 250 Sodium Chloride 0.9% 250 ml @ 125 mls/hr IVPB Q16H [facility] Rx#:[id number] Oral 250 Other: Voiding Method Toilet - Exam GENERAL DESCRIPTION: An elderly male lying in bed in no distress RESPIRATORY SYSTEM: Unlabored breathing , decreased breath sounds at bases HEART: S1 S2 regular rate and rhythm , ABDOMEN: Soft , no tenderness EXTREMITIES: No edema feet - Labs CBC & Chem 7: 01/21/23 13:13 01/22/23 06:17 Labs: Abnormal Lab Results - Last 24 Hours (Table) 01/21/23 01/21/23 Range/Units 13:13 13:13 RBC 3.74 L (4.30-5.90) m/uL Hgb 10.6 L (13.0-17.5) gm/dL Hct 32.3 L (39.0-53.0) % ESR 44 H (0-20) mm/Hr Sodium 133 L (137-145) mmol/L Potassium 5.4 H (3.5-5.1) mmol/L BUN 22 H (9-20) mg/dL Glucose 107 H (74-99) mg/dL C-Reactive Protein 2.7 H (<1.0) mg/dL Microbiology - Last 24 Hours (Table) 01/21/23 17:25 Gram Stain - Preliminary Back Assessment and Plan (1) Abscess of back Current Visit: Yes Status: Acute Code(s): L02.212 - CUTANEOUS ABSCESS OF BACK [ANY PART, EXCEPT BUTTOCK] SNOMED Code(s): 046384143 Plan: 1patient with the mid back likely infected pressure ulcer as there was evidence of slight purulent drainage on pressure which was cultured likely from gram- positive skin ishmael that has failed outpatient oral symptomatic therapy 2-await surgical drainage and deep culture 3-patient to continue with vancomycin pharmacy to dose with a target trough of 15 while watching kidney function and Vanco trough closely. Dictation was produced using [employer] dictation software. please excuse any grammatical, word or spelling errors. Time with Patient: Less than 30
[2023-01-22] MEDS: LATANOPROST 0.005% OPHTH DROPS 2.5 ML BTL BOTH EYES SCH (21:30)
[2023-01-22] MEDS: ATORVASTATIN 20 MG TAB PO SCH (21:30)
[2023-01-23 07:52] LABS: African American GFR (CKD) 67 (>60 ml/min/1.73 sqM); Anion Gap 10 mmol/L; Blood Urea Nitrogen 17 mg/dL (9-20); Calcium 9.6 mg/dL (8.4-10.2); Carbon Dioxide 25 mmol/L (22-30); Chloride 101 mmol/L (98-107); Glucose 91 mg/dL (74-99); Non-African American GFR(CKD) 58 (>60 ml/min/1.73 sqM); Potassium 4.2 mmol/L (3.5-5.1); Sodium 136 mmol/L (137-145)
[2023-01-23 08:11] LABS: HCT 35.4 % (39.0-53.0); HGB 11.6 gm/dL (13.0-17.5); MCH 28.1 pg (25.0-35.0); MCHC 32.8 g/dL (31.0-37.0); MCV 85.6 fL (80.0-100.0); Platelet Count 335 k/uL (150-450); RBC 4.13 m/uL (4.30-5.90); RDW 14.9 % (11.5-15.5); WBC 5.3 k/uL (3.8-10.6)
[2023-01-23] MEDS: METOPROLOL TARTRATE 25 MG TAB PO SCH ×2 (08:23→20:17)
[2023-01-23] MEDS ORDERED: LACTATED RINGERS 1,000 ML IV ONE (08:59)
[2023-01-23 09:18] LABS: Eosinophils # (M) 0.11 k/uL (0-0.7); Lymphocytes # (M) 1.33 k/uL (1.0-4.8); Monocytes # (M) 1.01 k/uL (0-1.0); Neutrophils # (M) 2.92 k/uL (1.3-7.7); Neutrophils % (M) 55 %; Nucleated Red Blood Cells 0 /100 WBC (0-0); Total Cells Counted 200
[2023-01-23 09:20] LABS: Poikilocytosis (M) Present
[2023-01-23] MEDS ORDERED: WATER FOR INJECTION, STERILE 10 ML VIAL IV ONE (09:55)
[2023-01-23] MEDS ORDERED: PHENYLEPHRINE 10 MG/ML 5 ML VIAL ONE (09:55)
[2023-01-23] MEDS ORDERED: PROPOFOL 10 MG/ML 20 ML VIAL IV ONE (09:55)
[2023-01-23] MEDS ORDERED: fentaNYL (PF) 50 MCG/ML 2 ML AMP ONE (09:55)
[2023-01-23] MEDS ORDERED: SUCCINYLCHOLINE CHLORIDE 200 MG/10 ML VIAL IV ONE (09:55)
[2023-01-23] MEDS ORDERED: ePHEDrine 50 MG/ML 1 ML VIAL ONE (09:55)
[2023-01-23] MEDS ORDERED: ONDANSETRON 4 MG/2 ML VIAL IVP ONE (09:57)
[2023-01-23] MEDS ORDERED: ceFAZolin 1,000 MG in SODIUM CHLORIDE 0.9% 1,000 ML IRRIGATION ONE (10:00)
--- NOTE | 2023-01-23 10:01 | P.PN ---
Progress Note - Text Progress Note Date: 01/23/23 Orthopedic spine: History of present illness: Patient is a very pleasant 87-year-old male who is seen and examined at the bedside for follow-up evaluation of his thoracic spine. He has not had any change in his symptoms as compared to yesterday. He had resented to our office at [facility] on 12/22/2022 for treatment evaluation of his clavicle. He is known have a clavicle fracture that has been healing without any difficulty. While there they were talking about a pressure ulcer infection to his thoracic spine. Patient states abscesses only been over the past several days. He had been on antibiotic medication without any significant benefit. It was recommended he present to the emergency department for further evaluation. After evaluation he was admitted for further treatment evaluation. He has been seen by Dr. Fisher in infectious disease. Cultures were taking the results pending. He is been started on vancomycin. Patient states he does have pain isolated that his thoracic spine along the midline. He does have some increased kyphosis near the pressure ulcer infection site. He denies any lower extremity weakness and radiculopathy bilaterally. He has good range of motion of his lower extremities. He has had CT and MRI imaging of his thoracic spine. He denies specific injury to his thoracic spine. He is admitted to medicine. His other medical diagnoses include coronary artery disease, hyperlipidemia, and hypertension. Currently he is not complaining of any other symptoms at the bedside. Maryann has been on hold per medicine in anticipation for surgical intervention. After further discussion about the patient, physical examination, his symptoms, and reviewing of imaging, we are planning to forward with incision and drainage of midthoracic infected ulcer/abscess. This is scheduled for today, 01/23/2023. Patient has been nothing by mouth in anticipation for surgical intervention. Patient states he is ready to proceed forward with surgical intervention. Physical exam: Patient is awake, alert, and oriented 3 Vital signs stable Good chest excursion with deep inspiration and expiration Abdomen soft nontender Examination of lumbar spine reveals skin is intact with no abrasions, lacerations, or bruises; no erythema, purulence or signs of infection Examination of the thoracic spine shows some increased kyphosis At the level of increased thoracic kyphosis, there is evidence of pressure ulcer infection with open wound with some purulent fluid Superficial skin tears around the pressure ulcer infection area Pressure ulcer infection appears to be round and approximately 40 mm across Superficial pressure ulcer is elevated with erythema and some mild drainage Dorsiflexion, plantarflexion, and extensor hallucis longus positive sustained bilaterally Lower extremity strength 5/5 bilaterally Patient is able to sit up at the bedside independently without difficulty Good active range of motion of bilateral lower extremities independently without difficulty Straight leg test negative bilateral lower extremities Negative Lasegue's test bilaterally No signs or symptoms of DVT; no calf pain Neurovascularly intact Pertinent studies: CT of the thoracic spine taken on 01/21/2023: Left mid back level at approximately T9-10 heterogeneous edematous region without rim enhancing fluid collection in which findings suggest phlegmonous change; multilevel thoracic degenerative disc disease; no spinal canal or neural foraminal stenosis identified; healing posterior left 10th, 11th, and 12 rib fractures with callus formation MRI of the thoracic spine taken on 01/21/2023: Soft tissue phlegmon as last cellulitis change of the mid back without evidence for extension into the spine Assessment: Midthoracic pressure ulcer infection Midthoracic heterogeneous edematous region without rim enhancing fluid collection to suggest phlegmonous change Soft tissue phlegmonous/cellulitis change of the mid thoracic spine without evidence for extension into the spine Thoracic back pain Failed outpatient antibiotics Hypertension Hyperlipidemia Coronary artery disease Healing left hand, 11th, 12th rib fractures Plan: 1. Patient does have some increased kyphosis at his thoracic spine and has had pressure ulcer infection over the past several days at his mid thoracic spine near this kyphotic curvature. He states he had been on outpatient oral antibiotics without significant benefit. As the infection was failing to improve, it was recommended he presents [facility] for further evaluation. CT and MRI imaging of the thoracic spine has been performed. Culture was taken by infectious disease with results pending. He has been started on vancomycin. CT imaging states there is evidence of left mid back level at approximately T9-10 heterogeneous edematous region without rim enhancing fluid collection in which findings suggest phlegmonous change in thoracic MRI imaging states there is evidence of soft tissue phlegmonous/cellulitis change of the mid thoracic spine without evidence for extension into the spine. The pressure ulcer infection appears to be superficial. Patient has been discussed in detail with Dr. Regino Maza. After further discussion about the patient, his symptoms, physical examination, and reviewing his thoracic MRI and CT imaging, we are planning to proceed forward with incision and drainage of midthoracic infected ulcer/abscess. This is scheduled for today, 01/23/2023. Patient has been nothing by mouth in anticipation for surgical intervention. Patient states he is ready to proceed forward with surgical intervention. We will plan to obtain deep culture during surgical i ntervention. 2. Patient will continue to be seen and examined by infectious disease. Patient will currently continue with IV antibiotics per infectious disease. Cultures are currently pending. 3. Patient will continue be seen and examined by medicine for his multiple other medical diagnoses. He is admitted to medicine. His other medical diagnoses include coronary artery disease, hyperlipidemia, and hypertension. Maryann has been on hold per medicine in anticipation for surgical intervention.
[2023-01-23] MEDS: FAMOTIDINE 20 MG TAB PO SCH (10:07)
[2023-01-23] MEDS: PANTOPRAZOLE 40 MG TABLET PO SCH (10:07)
[2023-01-23] MEDS: THIAMINE 100 MG TAB PO SCH (10:07)
[2023-01-23] MEDS ORDERED: SENNOSIDES-DOCUSATE SODIUM 1 EACH TAB PO PRN (11:00)
[2023-01-23] MEDS ORDERED: BENZOCAINE/MENTHOL LOZENG 1 EACH LOZENGE MUCOUS MEM PRN (11:00)
[2023-01-23] MEDS ORDERED: HYDROcodone/APAP 5-325MG 1 EACH TAB PO PRN (11:00)
[2023-01-23] MEDS ORDERED: HYDROmorphone 0.5 MG/0.5 ML SYRINGE IVP PRN (11:00)
[2023-01-23] MEDS ORDERED: ONDANSETRON 4 MG/2 ML VIAL IVP PRN (11:00)
[2023-01-23] MEDS ORDERED: HYDROmorphone 0.5 MG/0.5 ML SYRINGE IVP ONE (11:13)
--- NOTE | 2023-01-23 11:16 | P.OP ---
Date of Procedure: 01/23/23 Preoperative Diagnosis: Infected pressure ulcer, mid thoracic approximately 3 x 3 cm Soft tissue abscess, mid thoracic Postoperative Diagnosis: Same Anesthesia: GETA Pathology: other (Deep soft tissue cultures sent to microbiology 2) Condition: stable Disposition: PACU Description of Procedure: BRIEF OPERATIVE NOTE Preoperative Diagnosis:Infected pressure ulcer, mid thoracic approximately 3 x 3 cm Soft tissue abscess, mid thoracic Postoperative Diagnosis:Infected pressure ulcer, mid thoracic approximately 3 x 3 cm Soft tissue abscess, mid thoracic Procedure: Excisional debridement of infected midthoracic pressure ulcer approximately 3 x 3 cm superficially and 5 x 5 cm at the deep soft tissue With irrigation and debridement of soft tissue abscess at the midthoracic Surgeon: Dr. Maza Rooming House Keeper: Gary Amezquita is present throughout the entire the case persistence during positioning, dissection, exposure, visualization, and all crucial elements of the case as well as closure. Anesthesia: General anesthesia per Dr. Kerr Estimated blood loss: Less than 10 mL Complications: None apparent Specimen: Deep soft tissue culture 2 sent to make biology Disposition: To recovery room in good stable condition. OPERATIVE INDICATIONS The patient has been having issues in their back over the past couple of weeks. He is unsure of any specific injury or trauma but noticed a sore at his back. He had been treated with local wound care however he was having worsening and developed erythema and some fluctuance around the area. He has been here in the hospital and been treated with antibiotics with normal resolution. He seems have some fluctuance of the area and denuded infected tissue at the area of the pressure ulcer. He was evaluated and it was felt that surgical debridement and irrigation and debridement would give him benefit to help healing of the area. Imaging did not show deep penetration to the bones or to the spinal canal. We discussed various treatment options including surgery, and the patient wishes to proceed with surgery We discussed the risk, patient's alternatives and benefits of surgery including but not limited to, risk of bleeding risk of infection, risk of need for further surgery, risk of decreased, loss of motion, loss of function, nerve damage, paralysis, heart attack, blindness and . OPERATIVE SUMMARY After discussing all the risks, patient alternatives and benefits at length, the patient elected to proceed with surgical intervention, signed informed consent, and presented for their procedure. The patient was seen and examined in the preoperative holding area and the surgical site was marked. The patient was given antibiotics and brought to the operating room. The patient was sedated and intubated by anesthesia in standard fashion. The patient was positioned on to the operating room table in a prone position on the appropriate frame which was well-padded and well molded. We were careful to pad any bony prominences and pressure points. We were careful to maintain the patient's cervical spine and good neutral alignment and position throughout. The patient was prepped and draped in a normal standard fashion. An appropriate timeout and keystone protocol performed. We were able to proceed with the surgery. The ulcerated area was easily identified. There was a phlegmon and early sharp formation and I was able to sharply divided this off of the area approximately 2 x 3 cm. I had a had to divide further aspects of the skin which had become denuded to get a good surface approximately 3 x 3 cm over the area. A debridement deep approximately 1 cm into the soft tissue where there was further denuded and tissue which had to be excised and removed. Upon this we're able to find an area that tracked into the further subcutaneous tissue with obvious gross pus and abscess. I was able to drain this fully and dried under the soft tissue to get good surface and cleaning of the infected tissue. The wound was copiously irrigated with 3 L of antibiotic saline. The areas were cleaned had good surface with small bleeding margins. There is no further pus there is no denuded tissue. Prior to the irrigation I was able to take cultures 2 to be sent to microbiology. There is no evidence of any tracking into the deep tissue or underneath the fascia to the bone or spine. With the area of the wound there was not good opportunity for primary closure and I felt that wound care and granulation would be the best way for her to seal and closed. We decided to use a probe and a wound care sponge with suction to help with closure secondarily. I was able to use the package placed appropriately over the area and it was sealed and tested to be functioning well. The drapes were broken down. The patient was gently rolled back onto their hospital bed being careful to maintain their cervical spine and good neutral alignment and position. They were woken up by anesthesia, extubated, and brought to the recovery room in good stable condition. The patient will be admitted to the hospital for observation and for appropriate postoperative care, medical management and monitoring. We will continue to follow them closely about the postoperative course. We will continue there and a back per infectious disease and we will await culture results.
[2023-01-23] MEDS: SODIUM CHLORIDE 0.9% 1,000 ML IV SCH ×2 (12:29→13:04)
[2023-01-23] MEDS: lisinopriL 5 MG TAB PO SCH (13:59)
--- NOTE | 2023-01-23 14:05 | P.PN ---
Subjective Progress Note Date: 01/23/23 87-year-old gentleman with past medical history significant for coronary artery disease, hyperlipidemia, hypertension, cardiomyopathy, atrial fibrillation sent in from [place] office due to worsening back infection. Patient was sent in for evaluation of abscess of his back patient has been complaining of back discomfort. The patient was started on outpatient antibiotic cefdinir. He started to no drainage. And the abscess was noted to get larger. Patient was instructed to come to emergency department for IV antibiotics and MRI for better evaluation * Workup initiated in ER include hepatology which were WBC of 5.3 hemoglobin 10.6 platelet count of 293. Serum chemistry showed sodium 133 potassium 5.4 chloride 99 by mouth and 22 And 1.08 CRP 2.7 * Patient had an MRI thoracic spine done which showed soft tissue cellulitis. Mattress changes and mid back without extension into spine * Consultations obtained from orthopedic as well as infectious disease 01/23. Patient seen and examined. States back pain has improved. Currently nothing by mouth, going for surgery today REVIEW OF SYSTEMS: CONSTITUTIONAL: No fever, no malaise,. CARDIOVASCULAR: No chest pain, no palpitations, no syncope. PULMONARY: No shortness of breath, no cough, GASTROINTESTINAL: No diarrhea, no nausea, no vomiting, no abdominal pain. NEUROLOGICAL: No headaches, no weakness, PHYSICAL EXAMINATION: GENERAL: The patient is alert and oriented x3, not in any acute distress. Well developed, well nourished. HEENT: Pupils are round and equally reacting to light. EOMI. No scleral icterus. No conjunctival pallor. Normocephalic, atraumatic. No pharyngeal erythema. No thyromegaly. CARDIOVASCULAR: S1 and S2 present. No murmurs, rubs, or gallops. PULMONARY: Chest is clear to auscultation, no wheezing or crackles. ABDOMEN: Soft, nontender, nondistended, normoactive bowel sounds. No palpable organomegaly. MUSCULOSKELETAL: No joint swelling or deformity. EXTREMITIES: No cyanosis, clubbing, or pedal edema. NEUROLOGICAL: Gross neurological examination did not reveal any focal deficits. SKIN: No rashes. Assessment and plan Purulent cellulitis of back with abcess with out spine involvement T spine area History of atrial fibrillation on anticoagulation Hyperlipidemia Hypertension Coronary artery disease Hyperkalemia on admission Monitor vital signs Monitor CBC Monitor CMP CT imaging states there is evidence of left mid back level at approximately T9- 10 heterogeneous edematous region without rim enhancing fluid collection in which findings suggest phlegmonous change in thoracic MRI imaging states there is evidence of soft tissue phlegmonous/cellulitis change of the mid thoracic spine without evidence for extension into the spine. The pressure ulcer infection appears to be superficial. Continue pharmacy dose vancomycin Continue pain control Orthopedic following, planning IND today ID following Labs and medication were reviewed.. Continue same treatment. Continue with symptomatic treatment. Resume home medication. Monitor labs and vitals. DVT and GI prophylaxis. Further recommendations as per clinical course of the patient Dictation was produced using [employer] dictation software. please excuse any grammatical, word or spelling errors. Objective - Vital Signs Vital signs: Vital Signs Temp 98.6 F 01/23/23 09:02 Pulse 66 01/23/23 09:02 Resp 18 01/23/23 09:02 BP 187/87 01/23/23 09:02 Pulse Ox 96 01/23/23 09:02 FiO2 Intake & Output 01/22/23 01/23/23 01/23/23 18:59 06:59 18:59 Output Total 400 400 600 Balance -400 -400 -600 Output: Urine 400 400 600 Other: Voiding Method Toilet Toilet Toilet Urinal Urinal Urinal # Voids 3 3 - Labs CBC & Chem 7: 01/23/23 07:17 01/23/23 07:17 Labs: Abnormal Lab Results - Last 24 Hours (Table) 01/22/23 01/23/23 01/23/23 Range/Units 06:17 07:17 07:17 RBC 4.13 L (4.30-5.90) m/uL Hgb 11.6 L (13.0-17.5) gm/dL Hct 35.4 L (39.0-53.0) % Monocytes # (Manual) 1.01 H (0-1.0) k/uL Sodium 135 L 136 L (137-145) mmol/L Microbiology - Last 24 Hours (Table) 01/21/23 13:13 Blood Culture - Preliminary Blood 01/21/23 13:13 Blood Culture - Preliminary Blood 01/21/23 17:25 Gram Stain - Preliminary Back
[2023-01-23] MEDS: VANCOMYCIN 1,250 MG in SODIUM CHLORIDE 0.9% 250 ML IVPB SCH (14:51)
--- NOTE | 2023-01-23 16:21 | CDI ---
Documentation Clarification Form Date: 01/23/2023 03:55:58 PM From: Patti Becerril RN, CCDS Email: [email or web address] Admit Date: 01/21/2023 03:58:00 PM Patient Name: Tank Williamson Visit Number: [id number] Discharge Date: ATTENTION: The Clinical Documentation Specialists (CDI) and [facility] Coding Staff appreciate your assistance in clarifying documentation. Please respond to the clarification below the line at the bottom and electronically sign. The CDI & [facility] Coding staff will review the response and follow-up if needed. Please note: Queries are made part of the Legal Health Record. If you have any questions, please contact the author of this message via ITS. Dr. Tarah Gilman thoracic pressure ulcer is documented in the progress notes. Additional clarification regarding the stage of the pressure ulcer is requested. History/Risk Factors: CAD, HLD, HTN, cardiomyopathy, A fib. Presented for worsening back infection. Clinical Indicators: H&P: "Purulent cellulitis of back with abscess. ID: "patient with mid back, likely infected pressure ulcer as there was evidence of slight purulent drainage on pressure." 01/23 Procedure note: "Infected pressure ulcer, mid thoracic approximately 3 x 3 cm soft tissue abscess, mid thoracic. He seems to have some fluctuance of the area and denuded infected tissue at the area of the pressure ulcer." Location: mid thoracic Wound description: fluctuance of the area and denuded infected tissue at the area of the pressure ulcer Treatment: I&D and excisional debridement on 01/23; IV Vancomycin 1250mg Q16H 01/21-current 01/22 Ortho Consult: "mid-thoracic pressure ulcer infection; infected pressure ulcer." Please clarify the stage of the thoracic pressure ulcer, if known: [ ] Stage 1 Pressure Ulcer mid thoracic [ ] Stage 2 Pressure Ulcer mid thoracic [ ] Stage 3 Pressure Ulcer mid thoracic [ ] Stage 4 Pressure Ulcer mid thoracic [ ] Unstageable Pressure ulcer mid thoracic [ ] Other condition, please specify [y ] Unable to determine MTDD
--- NOTE | 2023-01-23 17:08 | P.PN ---
Subjective Progress Note Date: 01/23/23 Principal diagnosis: Midback abscess Patient is a 87-year-old male with a past medical his significant for hypertension hyperlipidemia coronary artery disease patient has been brought into the hospital for evaluation of abscess to his back, worse CT and MRI did shows phlegmonous cellulitis. Patient is status post surgical debridement of the infected mid back pressure ulcer/abscess on 01/23/2023 On today's evaluation that is 01/23/2023, the patient denies any fever or any chills, the patient is breathing comfortably on room air and no need for supplemental oxygen, the patient denies chest pain or cough, patient denies nausea/vomiting and no diarrhea has been reported patient pain to the mid back is controlled with current pain medication Patient did have white count of 5.3, creatinine is 1.13 cultures are currently growing presumptive MRSA Objective - Vital Signs Vital signs: Vital Signs Temp 98.6 F 01/23/23 09:02 Pulse 66 01/23/23 09:02 Resp 18 01/23/23 09:02 BP 187/87 01/23/23 09:02 Pulse Ox 96 01/23/23 09:02 FiO2 Intake & Output 01/22/23 01/23/23 01/23/23 18:59 06:59 18:59 Output Total 400 400 600 Balance -400 -400 -600 Output: Urine 400 400 600 Other: Voiding Method Toilet Toilet Toilet Urinal Urinal Urinal # Voids 3 3 - Exam GENERAL DESCRIPTION: An elderly male lying in bed in no distress RESPIRATORY SYSTEM: Unlabored breathing , decreased breath sounds at bases HEART: S1 S2 regular rate and rhythm , ABDOMEN: Soft , no tenderness EXTREMITIES: No edema feet - Labs CBC & Chem 7: 01/23/23 07:17 01/23/23 07:17 Labs: Abnormal Lab Results - Last 24 Hours (Table) 01/22/23 01/23/23 01/23/23 Range/Units 06:17 07:17 07:17 RBC 4.13 L (4.30-5.90) m/uL Hgb 11.6 L (13.0-17.5) gm/dL Hct 35.4 L (39.0-53.0) % Monocytes # (Manual) 1.01 H (0-1.0) k/uL Sodium 135 L 136 L (137-145) mmol/L Microbiology - Last 24 Hours (Table) 01/21/23 13:13 Blood Culture - Preliminary Blood 01/21/23 13:13 Blood Culture - Preliminary Blood 01/21/23 17:25 Gram Stain - Preliminary Back Assessment and Plan (1) Abscess of back Current Visit: Yes Status: Acute Code(s): L02.212 - CUTANEOUS ABSCESS OF BACK [ANY PART, EXCEPT BUTTOCK] SNOMED Code(s): 215044483 Plan: 1patient with the mid back likely infected pressure ulcer as there was evidence of slight purulent drainage on pressure which was cultured likely from gram- positive skin ishmael that has failed outpatient oral symptomatic therapy 2Patient is status post surgical drainage and deep culture 3-patient local culture done in the ER is growing resistant MRSA blood culture has been negative, patient to continue with vancomycin pharmacy to dose will need a PICC line for outpatient IV antibiotics Dictation was produced using [employer] dictation software. please excuse any grammatical, word or spelling errors. Time with Patient: Less than 30
[2023-01-23] MEDS: ATORVASTATIN 20 MG TAB PO SCH (20:17)
[2023-01-23] MEDS: LATANOPROST 0.005% OPHTH DROPS 2.5 ML BTL BOTH EYES SCH (21:15)
[2023-01-24] MEDS ORDERED: VANCOMYCIN TROUGH DUE 1 EACH MISC MISCELLANE ONE (05:00)
[2023-01-24] MEDS: PANTOPRAZOLE 40 MG TABLET PO SCH (06:45)
[2023-01-24] MEDS: SODIUM CHLORIDE 0.9% 1,000 ML IV SCH ×3 (07:06→08:20)
[2023-01-24] MEDS: VANCOMYCIN 1,250 MG in SODIUM CHLORIDE 0.9% 250 ML IVPB SCH ×2 (07:17→22:04)
[2023-01-24] MEDS: THIAMINE 100 MG TAB PO SCH (08:18)
[2023-01-24] MEDS: FAMOTIDINE 20 MG TAB PO SCH (08:18)
[2023-01-24] MEDS: APIXABAN 2.5 MG TABLET PO SCH ×2 (08:18→20:22)
[2023-01-24] MEDS: METOPROLOL TARTRATE 25 MG TAB PO SCH ×2 (08:19→20:22)
[2023-01-24] MEDS: lisinopriL 5 MG TAB PO SCH (08:19)
[2023-01-24 09:04] LABS: Basophils # (A) 0.09 X 10*3/uL (0.00-0.10); Basophils % (A) 1.9 %; Eosinophils # (A) 0.14 X 10*3/uL (0.04-0.35); Eosinophils % (A) 2.9 %; HCT 31.1 % (39.6-50.0); HGB 9.8 d/dL (13.0-17.0); Lymphocytes % (A) 28.8 %; MCHC 31.5 d/dL (32.0-37.0); MCV 85.7 FL (80.0-97.0); Mean Platelet Volume 9.4 FL (9.5-12.2); Monocytes # (A) 0.99 X 10*3/uL (0.20-1.00); Monocytes % (A) 20.4 %; NRBC Per 100 WBC 0 X 10*3/uL (0.00-0.01); Neutrophils # (A) 2.21 X 10*3/uL (1.80-7.70); Neutrophils % (A) 45.4 %; Platelet Count 355 X 10*3/uL (140-440); RBC 3.63 X 10*6/uL (4.40-5.60); RDW 15.3 % (11.5-14.5); WBC 4.86 X 10*3/uL (4.50-10.00)
[2023-01-24 11:28] LABS: ALT 9 U/L (10-49); AST 15 U/L (14-35); Albumin 3.5 d/dL (3.8-4.9); Albumin/Globulin Ratio 1.59 Ratio (1.60-3.17); Alkaline Phosphatase 68 U/L (41-126); BUN/Creat Ratio 12.17 Ratio (12.00-20.00); Blood Urea Nitrogen 14.6 mg/dL (9.0-27.0); Calcium 9.1 mg/dL (8.7-10.3); Carbon Dioxide 25.1 mmol/L (21.6-31.8); Chloride 103 mmol/L (96-109); Globulin 2.2 d/dL (1.6-3.3); Glucose 76 mg/dL (70-110); Potassium 4.3 mmol/L (3.5-5.5); Sodium 139 mmol/L (135-145); Total Bilirubin 0.4 mg/dL (0.3-1.2); Total Protein 5.7 d/dL (6.2-8.2)
--- NOTE | 2023-01-24 12:42 | P.PN ---
Progress Note - Text Progress Note Date: 01/24/23 Postoperative day #1 Patient is seen and examined today at bedside. The patient is not complaining of any new pain. He says the dressing has been fine. He has been up out of bed and he is tolerating his medicine well. He is tolerating his diet well as Physical Exam Afebrile with stable vital signs Abdomen is soft nontender. Chest has good excursion deep and space expiration The incision site is clean dry and intact. No erythema there is no purulence. The Proventil dressing is intact and appears to be stable. Extremities have not had neurologic change from prior to surgery. He has sustained a slash whether flexion and EHL intact Calves and thighs were soft nontender without evidence of DVT. Assessment/Plan Postoperative day #1 status post irrigation and debridement with excisional debridement and drainage of subcutaneous abscess at the posterior thoracic spine, healing appropriately Patient is progressing as expected from the surgery. He can continue to mobilize. He should continue his local wound management with wound care. I think that is active suction dressing is hopeful for him and hopefully we can continue with this as it granulates in as per care. His cultures are still pending and he will continue his antibiotic regimen as per infectious disease. At this point I do not have plans for further surgical intervention. He may increase his mobilization and continue his medication and wound care as per infectious disease and wound care. We will continue to increase the patient's mobilization with therapy. We will continue pain control with oral or IV medications. We'll continue to follow patient closely.
--- NOTE | 2023-01-24 13:39 | P.PN ---
Subjective Progress Note Date: 01/24/23 * 87-year-old gentleman with past medical history significant for coronary artery disease, hyperlipidemia, hypertension, cardiomyopathy, atrial fibrillation sent in from [employer] office due to worsening back infection. Patient was sent in for evaluation of abscess of his back patient has been complaining of back discomfort. The patient was started on outpatient antibiotic cefdinir. He started to no drainage. And the abscess was noted to get larger. Patient was instructed to come to emergency department for IV antibiotics and MRI for better evaluation * Workup initiated in ER include hepatology which were WBC of 5.3 hemoglobin 10.6 platelet count of 293. Serum chemistry showed sodium 133 potassium 5.4 chloride 99 by mouth and 22 And 1.08 CRP 2.7 * Patient had an MRI thoracic spine done which showed soft tissue cellulitis. Mattress changes and mid back without extension into spine * Consultations obtained from orthopedic as well as infectious disease * 01/23. Patient seen and examined. States back pain has improved. Currently nothing by mouth, going for surgery today * 01/24: Patient seen and evaluated bedside, postoperative day 1 status post irrigation, debridement, excisional debridement of subcutaneous abscess. Culture positive for MRSA. Continue IV vancomycin. Infectious disease following Objective - Vital Signs Vital signs: Vital Signs Temp 98.2 F 01/24/23 13:23 Pulse 67 01/24/23 13:23 Resp 17 01/24/23 13:23 BP 172/73 01/24/23 13:23 Pulse Ox 95 01/24/23 13:23 FiO2 Intake & Output 01/23/23 01/24/23 01/24/23 18:59 06:59 18:59 Intake Total 701 Output Total 730 300 200 Balance -29 -300 -200 Intake: IV 701 Output: Urine 720 300 200 Estimated Blood Loss 10 Other: Voiding Method Toilet Toilet Urinal Urinal - Exam PHYSICAL EXAMINATION: GENERAL: The patient is alert and oriented x3, not in any acute distress. Well developed, well nourished. HEENT: Pupils are round and equally reacting to light. EOMI. No scleral icterus. No conjunctival pallor. Normocephalic, atraumatic. No pharyngeal erythema. No thyromegaly. CARDIOVASCULAR: S1 and S2 present. No murmurs, rubs, or gallops. PULMONARY: Chest is clear to auscultation, no wheezing or crackles. ABDOMEN: Soft, nontender, nondistended, normoactive bowel sounds. No palpable organomegaly. MUSCULOSKELETAL: Status post I & D, wound VAC in place EXTREMITIES: No cyanosis, clubbing, or pedal edema. NEUROLOGICAL: Gross neurological examination did not reveal any focal deficits. SKIN: No rashes. - Labs CBC & Chem 7: 01/24/23 06:12 01/24/23 06:12 Labs: Abnormal Lab Results - Last 24 Hours (Table) 01/24/23 01/24/23 Range/Units 06:12 06:12 RBC 3.63 L (4.40-5.60) X 10*6/uL Hgb 9.8 L (13.0-17.0) d/dL Hct 31.1 L (39.6-50.0) % MCHC 31.5 L (32.0-37.0) d/dL RDW 15.3 H (11.5-14.5) % MPV 9.4 L (9.5-12.2) FL Est GFR (CKD-EPI) 58 L (>=60) ALT 9 L (10-49) U/L Total Protein 5.7 L (6.2-8.2) d/dL Albumin 3.5 L (3.8-4.9) d/dL Albumin/Globulin Ratio 1.59 L (1.60-3.17) Ratio Microbiology - Last 24 Hours (Table) 01/23/23 10:26 Gram Stain - Preliminary Back Wound Culture - Preliminary Presumptive MRSA 01/23/23 10:26 Wound Culture - Preliminary Back Presumptive MRSA 01/21/23 17:25 Gram Stain - Final Back Wound Culture - Final Methicillin resist S. aureus 01/21/23 13:13 Blood Culture - Preliminary Blood 01/21/23 13:13 Blood Culture - Preliminary Blood Assessment and Plan Assessment: Assessment and plan * Purulent cellulitis of back with abcess with out spine involvement T spine area S/P i & d pod 1 * History of atrial fibrillation on anticoagulation * Hyperlipidemia * Hypertension * Coronary artery disease * Hyperkalemia on admission * Consult obtained from infectious disease, orthospine * In regards to cellulitis Continue patient on IV vancomycin appreciate input from infectious disease, wound culture grew MRSA, will need final antibiotic plan per infectious disease * In regards to history of atrial fibrillation patient on metoprolol, Eliquis resume postprocedure * In regards to hypertension continue lisinopril and metoprolol * In regards to hyperkalemia and renal function followed up follow-up potassium levels within normal limits * CODE STATUS is full code
--- NOTE | 2023-01-24 16:13 | P.PN ---
Subjective Progress Note Date: 01/24/23 Principal diagnosis: Midback abscess Patient is a 87-year-old male with a past medical his significant for hypertension hyperlipidemia coronary artery disease patient has been brought into the hospital for evaluation of abscess to his back, worse CT and MRI did shows phlegmonous cellulitis. Patient is status post surgical debridement of the infected mid back pressure ulcer/abscess on 01/23/2023, no mention of any deep collection On today's evaluation that is 01/24/2023, the patient remains to be afebrile the patient is breathing comfortably on room air, the patient denies chest pain and no significant cough or sputum production, patient denies nausea/vomiting and no diarrhea, no new symptoms, patient pain to the mid back is controlled with current pain medication Patient did have white count of 4.86, creatinine is 1.2 cultures are currently growing presumptive MRSA Objective - Vital Signs Vital signs: Vital Signs Temp 98.2 F 01/24/23 13:23 Pulse 67 01/24/23 13:23 Resp 17 01/24/23 13:23 BP 142/70 01/24/23 13:23 Pulse Ox 95 01/24/23 13:23 FiO2 Intake & Output 01/23/23 01/24/23 01/24/23 18:59 06:59 18:59 Intake Total 701 Output Total 730 300 200 Balance -29 -300 -200 Intake: IV 701 Output: Urine 720 300 200 Estimated Blood Loss 10 Other: Voiding Method Toilet Toilet Urinal Urinal - Exam GENERAL DESCRIPTION: An elderly male lying in bed in no distress RESPIRATORY SYSTEM: Unlabored breathing , decreased breath sounds at bases HEART: S1 S2 regular rate and rhythm , ABDOMEN: Soft , no tenderness EXTREMITIES: No edema feet - Labs CBC & Chem 7: 01/24/23 06:12 01/24/23 06:12 Labs: Abnormal Lab Results - Last 24 Hours (Table) 01/24/23 01/24/23 Range/Units 06:12 06:12 RBC 3.63 L (4.40-5.60) X 10*6/uL Hgb 9.8 L (13.0-17.0) d/dL Hct 31.1 L (39.6-50.0) % MCHC 31.5 L (32.0-37.0) d/dL RDW 15.3 H (11.5-14.5) % MPV 9.4 L (9.5-12.2) FL Est GFR (CKD-EPI) 58 L (>=60) ALT 9 L (10-49) U/L Total Protein 5.7 L (6.2-8.2) d/dL Albumin 3.5 L (3.8-4.9) d/dL Albumin/Globulin Ratio 1.59 L (1.60-3.17) Ratio Microbiology - Last 24 Hours (Table) 01/23/23 10:26 Gram Stain - Preliminary Back Wound Culture - Preliminary Presumptive MRSA 01/23/23 10:26 Wound Culture - Preliminary Back Presumptive MRSA 01/21/23 17:25 Gram Stain - Final Back Wound Culture - Final Methicillin resist S. aureus 01/21/23 13:13 Blood Culture - Preliminary Blood 01/21/23 13:13 Blood Culture - Preliminary Blood Assessment and Plan (1) Abscess of back Current Visit: Yes Status: Acute Code(s): L02.212 - CUTANEOUS ABSCESS OF BACK [ANY PART, EXCEPT BUTTOCK] SNOMED Code(s): 241552050 Plan: 1patient with the mid back likely infected pressure ulcer as there was evidence of slight purulent drainage on pressure which was cultured likely from gram- positive skin ishmael that has failed outpatient oral symptomatic therapy 2Patient is status post surgical drainage and deep culture which are currently growing MRSA 3-patient to continue with vancomycin pharmacy to dose we will order a PICC line for outpatient IV antibiotics Dictation was produced using [employer] dictation software. please excuse any grammatical, word or spelling errors. Time with Patient: Less than 30
--- NOTE | 2023-01-24 17:57 | P.CONS ---
History of Present Illness - Reason for Consult Consult date: 01/24/23 wound care - History of Present Illness This is an 87-year-old patient being seen on [address]. for a post debridement of a infected spinal abscess. Patient had a subcutaneous abscess of the posterior thoracic spine. Patient currently has a incisional negative pressure wound VAC in place. That dressing will stay in place for approximately 7-14 days as poor surgical recommendations. Ulceration is showing granulation to the wound bed. Discussed with patient and family the need for continued advanced wound care and a outpatient setting. Patient is going to [facility] and will be having wound care at the facility. Review Of Systems: Constitutional: No fever, no chills, no night sweats. No weight change. No weakness, fatigue or lethargy. No daytime sleepiness. Integumentary:reports wounds, no lesions. No rash or pruritus. No unusual bruising. No change in hair or nails. Physical exam: General Appearance: Alert, cooperative, no distress, appears stated age. Skin: See HPI all other Skin color, texture, tugor normal, no rashes or lesions. Neurologic: Alert oriented x3 Assessment: 1. Nonhealing ulceration of other site with fat layer exposure Plan: 1. Continue with incisional negative pressure wound VAC as recommended per surgery. Patient will require follow-up in the wound care setting. Patient has decided to remain at the [facility] care facility for wound care. We will be happy to see him if he changes his mind or needs further care Thank you for the consultation any questions please contact the wound care center DNP note has been reviewed and discussed with Dr. Huynh and the impression and plan of care has been directed as dictated. Past Medical History Past Medical History: Coronary Artery Disease (CAD), Hyperlipidemia, Hypertension Additional Past Medical History / Comment(s): arthritis in back, cataracts History of Any Multi-Drug Resistant Organisms: None Reported Past Surgical History: Heart Catheterization, Hernia Repair, Tonsillectomy Additional Past Surgical History / Comment(s): colonoscopy, iban cataracts, wisdom teeth Past Anesthesia/Blood Transfusion Reactions: No Reported Reaction Past Psychological History: No Psychological Hx Reported Smoking Status: Light tobacco smoker Past Alcohol Use History: Occasional Past Drug Use History: None Reported - Past Family History Father Family Medical History: Cancer Additional Family Medical History / Comment(s): ca of lymph nodes Medications and Allergies Home Medications Medication Instructions Recorded Confirmed Type Latanoprost Ophth [Xalatan 0.005%] 1 drop BOTH EYES HS 01/02/17 01/21/23 History Thiamine [Vitamin B-1] 100 mg PO DAILY #30 tab 11/27/21 01/21/23 Rx lisinopriL [Zestril] 5 mg PO DAILY #30 tab 11/27/21 01/21/23 Rx Apixaban [Eliquis] 2.5 mg PO BID 08/29/22 01/21/23 History Famotidine [Pepcid] 20 mg PO DAILY 08/29/22 01/21/23 History Albuterol Inhaler [Ventolin Hfa 2 puff INHALATION RT-Q6H PRN 10/27/22 01/21/23 History Inhaler] Ipratropium-Albuterol Nebulize 3 ml INHALATION RT-QID PRN each 10/30/22 01/21/23 Rx [Duoneb 0.5 mg-3 mg/3 ml Soln] Metoprolol Tartrate [Lopressor] 25 mg PO BID tab 10/30/22 01/21/23 Rx Atorvastatin [Lipitor] 20 mg PO HS 01/21/23 01/21/23 History Cefdinir [Omnicef] 300 mg PO BID 01/21/23 01/21/23 History Magnesium Hydroxide [Milk of 2,400 mg PO DAILY PRN 01/21/23 01/21/23 History Magnesia] Omeprazole [PriLOSEC] 20 mg PO DAILY 01/21/23 01/21/23 History Allergies Allergy/AdvReac Type Severity Reaction Status Date / Time No Known Allergies Allergy Verified 01/23/23 09:05 Physical Exam Vitals: Vital Signs Temp Pulse Resp BP BP Pulse Ox 01/24/23 13:23 98.2 F 67 17 142/70 95 01/24/23 12:34 98.0 F 57 L 16 122/63 94 L 01/24/23 07:22 97.5 F L 60 17 137/65 95 01/24/23 01:46 97.8 F 64 19 100/49 90 L 01/23/23 20:17 97.7 F 68 19 135/67 93 L Intake and Output 01/24/23 01/24/23 01/24/23 06:59 14:59 22:59 Output Total 300 200 Balance -300 -200 Output: Urine 300 200 Results CBC & Chem 7: 01/24/23 06:12 01/24/23 06:12 Labs: Abnormal Lab Results - Last 24 Hours (Table) 01/24/23 01/24/23 Range/Units 06:12 06:12 RBC 3.63 L (4.40-5.60) X 10*6/uL Hgb 9.8 L (13.0-17.0) d/dL Hct 31.1 L (39.6-50.0) % MCHC 31.5 L (32.0-37.0) d/dL RDW 15.3 H (11.5-14.5) % MPV 9.4 L (9.5-12.2) FL Est GFR (CKD-EPI) 58 L (>=60) ALT 9 L (10-49) U/L Total Protein 5.7 L (6.2-8.2) d/dL Albumin 3.5 L (3.8-4.9) d/dL Albumin/Globulin Ratio 1.59 L (1.60-3.17) Ratio Microbiology - Last 24 Hours (Table) 01/23/23 10:26 Gram Stain - Preliminary Back Wound Culture - Preliminary Presumptive MRSA 01/23/23 10:26 Wound Culture - Preliminary Back Presumptive MRSA 01/21/23 17:25 Gram Stain - Final Back Wound Culture - Final Methicillin resist S. aureus 01/21/23 13:13 Blood Culture - Preliminary Blood 01/21/23 13:13 Blood Culture - Preliminary Blood Assessment and Plan (1) Non-pressure chronic ulcer of skin of other sites with fat layer exposed Current Visit: Yes Status: Acute Code(s): L98.492 - NON-PRS CHRONIC ULCER OF SKIN OF SITES W FAT LAYER EXPOSED SNOMED Code(s): 59677828
[2023-01-24] MEDS: LATANOPROST 0.005% OPHTH DROPS 2.5 ML BTL BOTH EYES SCH (20:22)
[2023-01-24] MEDS: ATORVASTATIN 20 MG TAB PO SCH (20:22)
[2023-01-25] MEDS: SODIUM CHLORIDE 0.9% 1,000 ML IV SCH ×3 (03:03→13:09)
[2023-01-25] MEDS: PANTOPRAZOLE 40 MG TABLET PO SCH (06:12)
[2023-01-25 06:39] LABS: INR 1.1 (<1.2); Prothrombin Time 11.4 sec (9.0-12.0)
[2023-01-25 08:43] LABS: HCT 32.6 % (39.6-50.0); HGB 10.4 d/dL (13.0-17.0); MCH 27.5 pg (27.0-32.0); MCHC 31.9 d/dL (32.0-37.0); MCV 86.2 FL (80.0-97.0); Mean Platelet Volume 9.5 FL (9.5-12.2); NRBC Per 100 WBC 0 X 10*3/uL (0.00-0.01); Platelet Count 343 X 10*3/uL (140-440); RBC 3.78 X 10*6/uL (4.40-5.60); RDW 15.1 % (11.5-14.5); WBC 4.75 X 10*3/uL (4.50-10.00)
--- NOTE | 2023-01-25 08:47 | P.PN ---
Progress Note - Text Progress Note Date: 01/25/23 Orthopedic spine: History of present illness: Patient is a very pleasant 87-year-old male who is seen and examined at the bedside for follow-up evaluation of his thoracic spine. He is status post excisional debridement of infected midthoracic pressure ulcer approximately 3 x 3 cm superficially and 5 x 5 cm at the deep soft tissue with irrigation and debridement of soft tissue abscess at the midthoracic spine with placement of Prevena wound VAC. The wound VAC has remained intact and is clean and dry. His pain has been medically controlled and his midthoracic spine. He continues to deny any lower extremity weakness or radiculopathy. Good range of motion of his lower extremities. He does utilize a walker to aid in ambulation. He is eating and voiding without difficulty. He had a bowel movement this morning. He has been seen by Dr. Fisher in infectious disease. Cultures were taking the results pending with presumptive MRSA. He is been started on vancomycin. PICC line has been placed. He has been seen by wound care who is not currently planning for any treatment as he's playing for discharge to a rehabilitation facility in [place], [place] who will manage his wound care at the time of discharge. He is admitted to medicine. His other medical diagnoses include coronary artery disease, hyperlipidemia, and hypertension. Currently he is not complaining of any other symptoms at the bedside. Physical exam: Postoperative day #2 Patient is awake, alert, and oriented 3 Vital signs stable Good chest excursion with deep inspiration and expiration Examination of lumbar spine reveals skin is intact with no abrasions, lacerations, or bruises; no erythema, purulence or signs of infection Examination of the thoracic spine shows some increased kyphosis Evidence of wound VAC intact at the midthoracic spine which is clean and dry Dorsiflexion, plantarflexion, and extensor hallucis longus positive sustained bilaterally Lower extremity strength 5/5 bilaterally Good active range of motion of bilateral lower extremities independently without difficulty Straight leg test negative bilateral lower extremities Negative Lasegue's test bilaterally No signs or symptoms of DVT; no calf pain; calves are soft nontender Neurovascularly intact Pertinent studies: CT of the thoracic spine taken on 01/21/2023: Left mid back level at approximately T9-10 heterogeneous edematous region without rim enhancing fluid collection in which findings suggest phlegmonous change; multilevel thoracic degenerative disc disease; no spinal canal or neural foraminal stenosis identifi ed; healing posterior left 10th, 11th, and 12 rib fractures with callus formation MRI of the thoracic spine taken on 01/21/2023: Soft tissue phlegmon as last cellulitis change of the mid back without evidence for extension into the spine Assessment: Status post excisional debridement of infected midthoracic pressure ulcer approximately 3 x 3 cm superficially and 5 x 5 cm at the deep soft tissue with irrigation and debridement of soft tissue abscess at the midthoracic Placement of wound VAC at the midthoracic spine Midthoracic pressure ulcer infection Midthoracic heterogeneous edematous region without rim enhancing fluid collection to suggest phlegmonous change Soft tissue phlegmonous/cellulitis change of the mid thoracic spine without evidence for extension into the spine Thoracic back pain Failed outpatient antibiotics Hypertension Hyperlipidemia Coronary artery disease Healing left hand, 11th, 12th rib fractures Plan: 1. Patient is status post excisional debridement of infected midthoracic pressure ulcer approximately 3 x 3 cm superficially and 5 x 5 cm at the deep soft tissue With irrigation and debridement of soft tissue abscess at the midthoracic with placement of wound VAC. This wound VAC remains clean, dry, and intact. Currently, we will plan to keep his wound VAC intact. We were planning for this to be managed by wound care, however, patient is planning for discharge to a rehabilitation facility that will manage the wound VAC at that location. Patient will currently keep the wound VAC and intact. Patient continues to be seen examined by Dr. Fisher in infectious disease. They're currently planning for PICC line placement for antibiotics following discharge. Patient is currently on vancomycin. Cultures are currently showing presumptive MRSA. From an orthopedic spine standpoint, we're not currently planning for any further surgical intervention. He may continue to increase his mobility and ambulation with physical therapy. He may continue medications as prescribed by infectious disease and medicine. We will plan to have him follow-up in the outpatient setting in approximately 1 week for further evaluation. Patient may follow-up with Gary Zaragoza PA-C or Dr. Regino Maza at [facility] in 1 week following discharge. 2. Patient will continue be seen and examined by medicine for his multiple other medical diagnoses. He is admitted to medicine. His other medical diagnoses include coronary artery disease, hyperlipidemia, and hypertension.
[2023-01-25 09:37] LABS: BUN/Creat Ratio 10.75 Ratio (12.00-20.00); Blood Urea Nitrogen 12.9 mg/dL (9.0-27.0); Calcium 8.9 mg/dL (8.7-10.3); Carbon Dioxide 25.6 mmol/L (21.6-31.8); Chloride 102 mmol/L (96-109); Glucose 77 mg/dL (70-110); Potassium 3.8 mmol/L (3.5-5.5); Sodium 138 mmol/L (135-145)
[2023-01-25] MEDS: APIXABAN 2.5 MG TABLET PO SCH ×2 (11:39→20:59)
[2023-01-25] MEDS: FAMOTIDINE 20 MG TAB PO SCH (11:50)
[2023-01-25] MEDS: lisinopriL 5 MG TAB PO SCH (11:51)
[2023-01-25] MEDS: THIAMINE 100 MG TAB PO SCH (11:52)
[2023-01-25] MEDS: METOPROLOL TARTRATE 25 MG TAB PO SCH ×2 (11:53→20:59)
[2023-01-25] MEDS: VANCOMYCIN 1,250 MG in SODIUM CHLORIDE 0.9% 250 ML IVPB SCH (13:08)
[2023-01-25] MEDS ORDERED: LIDOCAINE 1% INJ 10MG/ML (20 ML MDV) SQ ONE (14:16)
--- NOTE | 2023-01-25 16:03 | IR ---
PICC LINE PLACEMENT: HISTORY: Infection requiring long-term antibiotic therapy PROCEDURE: Ultrasound and fluoroscopic guidance of PICC line placement. COMPLICATIONS: None ANESTHESIA: 1. 1% Lidocaine locally. FINDINGS/TECHNIQUE: The procedure was explained to the patient. The risks, complications, benefits and alternatives were discussed and any questions were answered. Informed consent was obtained. The patient was placed supine on the fluoroscopic table and prepped and draped in the usual sterile fash ion. Utilizing a 21 gauge needle and sonographic and fluoroscopic guidance, access in the left basi lic vein was achieved and there is placement of a 0.018 guidewire. The vein is patent. A 4-F sheath was placed over the guidewire. The guidewire and dilator were removed and a 4-F. PICC line was plac ed through the sheath with the tip at the level of the SVC. The sheath was removed, the catheter was flushed and sutured into position. The patient was stable throughout the procedure and remained sta ble upon discharge from the Department of Radiology. The vein puncture was patent under ultrasound. A scale image was obtained to document patency of the vein punctured. All elements of the maximal barrier technique were utilized. FLUOROSCOPY TIME: DAP [id number] cm2 IMPRESSION: Successful PICC line placement under ultrasound and fluoroscopic guidance.
--- NOTE | 2023-01-25 18:48 | P.PN ---
Subjective Progress Note Date: 01/25/23 * 87-year-old gentleman with past medical history significant for coronary artery disease, hyperlipidemia, hypertension, cardiomyopathy, atrial fibrillation sent in from [place] office due to worsening back infection. Patient was sent in for evaluation of abscess of his back patient has been complaining of back discomfort. The patient was started on outpatient antibiotic cefdinir. He started to no drainage. And the abscess was noted to get larger. Patient was instructed to come to emergency department for IV antibiotics and MRI for better evaluation * Workup initiated in ER include hepatology which were WBC of 5.3 hemoglobin 10.6 platelet count of 293. Serum chemistry showed sodium 133 potassium 5.4 chloride 99 by mouth and 22 And 1.08 CRP 2.7 * Patient had an MRI thoracic spine done which showed soft tissue cellulitis. Mattress changes and mid back without extension into spine * Consultations obtained from orthopedic as well as infectious disease Objective - Vital Signs Vital signs: Vital Signs Temp 98.2 F 01/25/23 12:53 Pulse 68 01/25/23 12:53 Resp 17 01/25/23 12:53 BP 126/75 01/25/23 12:53 Pulse Ox 95 01/25/23 12:53 FiO2 Intake & Output 01/24/23 01/25/23 01/25/23 18:59 06:59 18:59 Output Total 425 1350 250 Balance -425 -1350 -250 Output: Urine 425 1350 250 Other: # Bowel Movements 1 - Exam GENERAL: The patient is alert and oriented x3, not in any acute distress. Well developed, well nourished. HEENT: Pupils are round and equally reacting to light. EOMI. No scleral icterus. No conjunctival pallor. Normocephalic, atraumatic. No pharyngeal erythema. No thyromegaly. CARDIOVASCULAR: S1 and S2 present. No murmurs, rubs, or gallops. PULMONARY: Chest is clear to auscultation, no wheezing or crackles. ABDOMEN: Soft, nontender, nondistended, normoactive bowel sounds. No palpable organomegaly. MUSCULOSKELETAL: Status post I & D, wound VAC in place EXTREMITIES: No cyanosis, clubbing, or pedal edema. NEUROLOGICAL: Gross neurological examination did not reveal any focal deficits. SKIN: No rashes. - Labs CBC & Chem 7: 01/25/23 06:00 01/25/23 06:00 Labs: Abnormal Lab Results - Last 24 Hours (Table) 01/25/23 01/25/23 Range/Units 06:00 06:00 RBC 3.78 L (4.40-5.60) X 10*6/uL Hgb 10.4 L (13.0-17.0) d/dL Hct 32.6 L (39.6-50.0) % MCHC 31.9 L (32.0-37.0) d/dL RDW 15.1 H (11.5-14.5) % Est GFR (CKD-EPI) 58 L (>=60) BUN/Creatinine Ratio 10.75 L (12.00-20.00) Ratio Microbiology - Last 24 Hours (Table) 01/23/23 10:26 Anaerobic Culture - Preliminary Back 01/23/23 10:26 Anaerobic Culture - Preliminary Back 01/23/23 10:26 Gram Stain - Final Back Wound Culture - Final Methicillin resist S. aureus 01/23/23 10:26 Gram Stain - Final Back Wound Culture - Final Methicillin resist S. aureus 01/21/23 13:13 Blood Culture - Preliminary Blood 01/21/23 13:13 Blood Culture - Preliminary Blood Assessment and Plan Assessment: * Purulent cellulitis of back with abcess with out spine involvement T spine area S/P i & d pod 2 * History of atrial fibrillation on anticoagulation * Hyperlipidemia * Hypertension * Coronary artery disease * Hyperkalemia on admission * Consult obtained from infectious disease, orthospine * In regards to cellulitis Continue patient on IV vancomycin appreciate input from infectious disease, wound culture grew MRSA, will need final antibiotic plan per infectious disease * In regards to history of atrial fibrillation patient on metoprolol, Eliquis resume postprocedure * In regards to hypertension continue lisinopril and metoprolol * In regards to hyperkalemia and renal function followed up follow-up potassium levels within normal limits * CODE STATUS is full code
[2023-01-25] MEDS: ATORVASTATIN 20 MG TAB PO SCH (20:59)
[2023-01-25] MEDS: LATANOPROST 0.005% OPHTH DROPS 2.5 ML BTL BOTH EYES SCH (21:00)
--- NOTE | 2023-01-25 23:07 | P.PN ---
Subjective Progress Note Date: 01/25/23 Principal diagnosis: Midback abscess Patient is a 87-year-old male with a past medical his significant for hypertension hyperlipidemia coronary artery disease patient has been brought into the hospital for evaluation of abscess to his back, worse CT and MRI did shows phlegmonous cellulitis. Patient is status post surgical debridement of the infected mid back pressure ulcer/abscess on 01/23/2023, no mention of any deep collection On today's evaluation that is 01/25/2023, the patient continues to be afebrile the patient is breathing comfortably on room air, the patient denies chest pain or cough, patient denies abdominal pain and no nausea/vomiting and no diarrhea has been reported, patient pain to the mid back is controlled with current pain medication Patient did have white count of 4.75, creatinine is 1.2 cultures are currently growing e MRSA Objective - Vital Signs Vital signs: Vital Signs Temp 98.2 F 01/25/23 12:53 Pulse 68 01/25/23 12:53 Resp 17 01/25/23 12:53 BP 126/75 01/25/23 12:53 Pulse Ox 95 01/25/23 12:53 FiO2 Intake & Output 01/24/23 01/25/23 01/25/23 18:59 06:59 18:59 Output Total 425 1350 250 Balance -425 -1350 -250 Output: Urine 425 1350 250 Other: # Bowel Movements 1 - Exam GENERAL DESCRIPTION: An elderly male lying in bed in no distress RESPIRATORY SYSTEM: Unlabored breathing , decreased breath sounds at bases HEART: S1 S2 regular rate and rhythm , ABDOMEN: Soft , no tenderness EXTREMITIES: No edema feet - Labs CBC & Chem 7: 01/25/23 06:00 01/25/23 06:00 Labs: Abnormal Lab Results - Last 24 Hours (Table) 01/25/23 01/25/23 Range/Units 06:00 06:00 RBC 3.78 L (4.40-5.60) X 10*6/uL Hgb 10.4 L (13.0-17.0) d/dL Hct 32.6 L (39.6-50.0) % MCHC 31.9 L (32.0-37.0) d/dL RDW 15.1 H (11.5-14.5) % Est GFR (CKD-EPI) 58 L (>=60) BUN/Creatinine Ratio 10.75 L (12.00-20.00) Ratio Microbiology - Last 24 Hours (Table) 01/23/23 10:26 Anaerobic Culture - Preliminary Back 01/23/23 10:26 Gram Stain - Final Back Wound Culture - Final Methicillin resist S. aureus 01/23/23 10:26 Gram Stain - Final Back Wound Culture - Final Methicillin resist S. aureus 01/21/23 13:13 Blood Culture - Preliminary Blood 01/21/23 13:13 Blood Culture - Preliminary Blood 01/21/23 17:25 Gram Stain - Final Back Wound Culture - Final Methicillin resist S. aureus Assessment and Plan (1) Abscess of back Current Visit: Yes Status: Acute Code(s): L02.212 - CUTANEOUS ABSCESS OF BACK [ANY PART, EXCEPT BUTTOCK] SNOMED Code(s): 504568150 Plan: 1patient with the mid back likely infected pressure ulcer as there was evidence of slight purulent drainage on pressure which was cultured likely from gram- positive skin ishmael that has failed outpatient oral symptomatic therapy 2Patient is status post surgical drainage and deep culture which are currently growing MRSA 3-patient has shown clinical improvment and will continue with vancomycin pharmacy to dose , PICC line for outpatient IV antibiotics Dictation was produced using [employer] dictation software. please excuse any grammatical, word or spelling errors. Time with Patient: Less than 30
[2023-01-26] MEDS: VANCOMYCIN 1,250 MG in SODIUM CHLORIDE 0.9% 250 ML IVPB SCH ×2 (06:26→20:39)
[2023-01-26] MEDS: SODIUM CHLORIDE 0.9% 1,000 ML IV SCH ×3 (06:49→20:12)
[2023-01-26] MEDS: PANTOPRAZOLE 40 MG TABLET PO SCH (06:54)
[2023-01-26] MEDS: FAMOTIDINE 20 MG TAB PO SCH (09:03)
[2023-01-26] MEDS: lisinopriL 5 MG TAB PO SCH (09:03)
[2023-01-26] MEDS: THIAMINE 100 MG TAB PO SCH (09:03)
[2023-01-26] MEDS: METOPROLOL TARTRATE 25 MG TAB PO SCH ×2 (09:03→20:11)
[2023-01-26] MEDS: APIXABAN 2.5 MG TABLET PO SCH ×2 (09:03→20:11)
[2023-01-26 09:46] LABS: BUN/Creat Ratio 10.36 Ratio (12.00-20.00); Blood Urea Nitrogen 11.4 mg/dL (9.0-27.0); Calcium 9.4 mg/dL (8.7-10.3); Carbon Dioxide 26.2 mmol/L (21.6-31.8); Chloride 102 mmol/L (96-109); Glucose 85 mg/dL (70-110); Potassium 4.1 mmol/L (3.5-5.5); Sodium 139 mmol/L (135-145)
[2023-01-26 09:56] LABS: Basophils % (A) 1.9 %; Eosinophils # (A) 0.18 X 10*3/uL (0.04-0.35); Eosinophils % (A) 3.5 %; HCT 34.6 % (39.6-50.0); Lymphocytes # (A) 1.49 X 10*3/uL (0.90-5.00); Lymphocytes % (A) 28.7 %; MCH 27.2 pg (27.0-32.0); MCHC 31.8 d/dL (32.0-37.0); MCV 85.6 FL (80.0-97.0); Mean Platelet Volume 9.6 FL (9.5-12.2); Monocytes % (A) 23.1 %; NRBC Per 100 WBC 0 X 10*3/uL (0.00-0.01); Neutrophils % (A) 42.4 %; Platelet Count 352 X 10*3/uL (140-440); RBC 4.04 X 10*6/uL (4.40-5.60); RDW 15.2 % (11.5-14.5); WBC 5.19 X 10*3/uL (4.50-10.00)
--- NOTE | 2023-01-26 13:33 | P.PN ---
Subjective Progress Note Date: 01/26/23 Principal diagnosis: Midback abscess Patient is a 87-year-old male with a past medical his significant for hypertension hyperlipidemia coronary artery disease patient has been brought into the hospital for evaluation of abscess to his back, worse CT and MRI did shows phlegmonous cellulitis. Patient is status post surgical debridement of the infected mid back pressure ulcer/abscess on 01/23/2023, no mention of any deep collection On today's evaluation that is 01/26/2023, the patient remains to be afebrile the patient is breathing comfortably on room air and not requiring supplemental oxygen, the patient denies chest pain and no significant cough, patient denies abdominal pain and no nausea/vomiting or diarrhea , patient denies any worsening pain to the mid back Patient did have white count of 5.19, creatinine is 1.1 cultures are currently growing e MRSA Objective - Vital Signs Vital signs: Vital Signs Temp 98.3 F 01/26/23 06:52 Pulse 54 L 01/26/23 06:52 Resp 18 01/26/23 06:52 BP 164/85 01/26/23 06:52 Pulse Ox 96 01/26/23 06:52 FiO2 Intake & Output 01/25/23 01/26/23 01/26/23 18:59 06:59 18:59 Output Total 250 750 450 Balance -250 -750 -450 Output: Urine 250 750 450 Other: Voiding Method Toilet Urinal # Voids 1 # Bowel Movements 1 1 - Exam GENERAL DESCRIPTION: An elderly male lying in bed in no distress RESPIRATORY SYSTEM: Unlabored breathing , decreased breath sounds at bases HEART: S1 S2 regular rate and rhythm , ABDOMEN: Soft , no tenderness EXTREMITIES: No edema feet , midback covered with wound vac - Labs CBC & Chem 7: 01/26/23 06:02 01/26/23 06:02 Labs: Abnormal Lab Results - Last 24 Hours (Table) 01/26/23 01/26/23 Range/Units 06:02 06:02 RBC 4.04 L (4.40-5.60) X 10*6/uL Hgb 11.0 L (13.0-17.0) d/dL Hct 34.6 L (39.6-50.0) % MCHC 31.8 L (32.0-37.0) d/dL RDW 15.2 H (11.5-14.5) % Monocytes # 1.20 H (0.20-1.00) X 10*3/uL BUN/Creatinine Ratio 10.36 L (12.00-20.00) Ratio Microbiology - Last 24 Hours (Table) 01/23/23 10:26 Anaerobic Culture - Preliminary Back 01/23/23 10:26 Anaerobic Culture - Preliminary Back 01/23/23 10:26 Gram Stain - Final Back Wound Culture - Final Methicillin resist S. aureus 01/23/23 10:26 Gram Stain - Final Back Wound Culture - Final Methicillin resist S. aureus Assessment and Plan (1) Abscess of back Current Visit: Yes Status: Acute Code(s): L02.212 - CUTANEOUS ABSCESS OF BACK [ANY PART, EXCEPT BUTTOCK] SNOMED Code(s): 367122257 Plan: 1patient with the mid back likely infected pressure ulcer as there was evidence of slight purulent drainage on pressure which was cultured likely from gram- positive skin ishmael that has failed outpatient oral symptomatic therapy 2Patient is status post surgical drainage and deep culture which are currently growing MRSA 3-patient has shown clinical improvment and pt got PICC, plan is to continue with vancomycin pharmacy to dose x 2-3 weeks depending upon his clinical response Dictation was produced using [employer] dictation software. please excuse any grammatical, word or spelling errors. Time with Patient: Less than 30
--- NOTE | 2023-01-26 19:26 | P.PN ---
Subjective Progress Note Date: 01/26/23 * 87-year-old gentleman with past medical history significant for coronary artery disease, hyperlipidemia, hypertension, cardiomyopathy, atrial fibrillation sent in from [place] office due to worsening back infection. Patient was sent in for evaluation of abscess of his back patient has been complaining of back discomfort. The patient was started on outpatient antibiotic cefdinir. He started to no drainage. And the abscess was noted to get larger. Patient was instructed to come to emergency department for IV antibiotics and MRI for better evaluation * Workup initiated in ER include hepatology which were WBC of 5.3 hemoglobin 10.6 platelet count of 293. Serum chemistry showed sodium 133 potassium 5.4 chloride 99 by mouth and 22 And 1.08 CRP 2.7 * Patient had an MRI thoracic spine done which showed soft tissue cellulitis. Mattress changes and mid back without extension into spine * Consultations obtained from orthopedic as well as infectious disease 01/26/2023 -- the patient is seen and evaluated in room at bedside; remains to be afebrile the patient is breathing comfortably on room air and not requiring supplemental oxygen, the patient denies chest pain and no significant cough, patient denies abdominal pain and no nausea/vomiting or diarrhea , patient denies any worsening pain to the mid back - Lab review reveals white count of 5.19, hemoglobin of 11.0, platelet count 352, sodium 139, potassium 4.1, BUN 11.4 and creatinine is 1.1 cultures are currently growing e MRSA patient with the mid back likely infected pressure ulcer as there was evidence of slight purulent drainage on pressure which was cultured likely from gram- positive skin ishmael that has failed outpatient oral symptomatic therapy Patient is status post surgical drainage and deep culture which are currently growing MRSA -patient has shown clinical improvment and pt got PICC, plan is to continue with vancomycin pharmacy to dose x 2-3 weeks depending upon his clinical response Objective - Vital Signs Vital signs: Vital Signs Temp 98.3 F 01/26/23 06:52 Pulse 54 L 01/26/23 06:52 Resp 18 01/26/23 06:52 BP 164/85 01/26/23 06:52 Pulse Ox 96 01/26/23 06:52 FiO2 Intake & Output 01/25/23 01/26/23 01/26/23 18:59 06:59 18:59 Output Total 250 750 450 Balance -250 -750 -450 Output: Urine 250 750 450 Other: Voiding Method Toilet Urinal # Voids 1 # Bowel Movements 1 1 - Exam GENERAL: The patient is alert and oriented x3, not in any acute distress. Well developed, well nourished. HEENT: Pupils are round and equally reacting to light. EOMI. No scleral icterus. No conjunctival pallor. Normocephalic, atraumatic. No pharyngeal erythema. No thyromegaly. CARDIOVASCULAR: S1 and S2 present. No murmurs, rubs, or gallops. PULMONARY: Chest is clear to auscultation, no wheezing or crackles. ABDOMEN: Soft, nontender, nondistended, normoactive bowel sounds. No palpable organomegaly. MUSCULOSKELETAL: Status post I & D, wound VAC in place EXTREMITIES: No cyanosis, clubbing, or pedal edema. NEUROLOGICAL: Gross neurological examination did not reveal any focal deficits. SKIN: No rashes. - Labs CBC & Chem 7: 01/26/23 06:02 01/26/23 06:02 Labs: Abnormal Lab Results - Last 24 Hours (Table) 01/26/23 01/26/23 Range/Units 06:02 06:02 RBC 4.04 L (4.40-5.60) X 10*6/uL Hgb 11.0 L (13.0-17.0) d/dL Hct 34.6 L (39.6-50.0) % MCHC 31.8 L (32.0-37.0) d/dL RDW 15.2 H (11.5-14.5) % Monocytes # 1.20 H (0.20-1.00) X 10*3/uL BUN/Creatinine Ratio 10.36 L (12.00-20.00) Ratio Microbiology - Last 24 Hours (Table) 01/23/23 10:26 Anaerobic Culture - Preliminary Back 01/23/23 10:26 Anaerobic Culture - Preliminary Back 01/23/23 10:26 Gram Stain - Final Back Wound Culture - Final Methicillin resist S. aureus 01/23/23 10:26 Gram Stain - Final Back Wound Culture - Final Methicillin resist S. aureus Assessment and Plan Assessment: * Purulent cellulitis of back with abcess with out spine involvement T spine area S/P i & d pod 2 * History of atrial fibrillation on anticoagulation * Hyperlipidemia * Hypertension * Coronary artery disease * Hyperkalemia on admission * Consult obtained from infectious disease, orthospine * In regards to cellulitis Continue patient on IV vancomycin appreciate input from infectious disease, wound culture grew MRSA, will need final antibiotic plan per infectious disease * In regards to history of atrial fibrillation patient on metoprolol, Eliquis resume postprocedure * In regards to hypertension continue lisinopril and metoprolol * In regards to hyperkalemia and renal function followed up follow-up potassium levels within normal limits * CODE STATUS is full code
[2023-01-26] MEDS: ATORVASTATIN 20 MG TAB PO SCH (20:11)
[2023-01-26] MEDS: LATANOPROST 0.005% OPHTH DROPS 2.5 ML BTL BOTH EYES SCH (20:12)
[2023-01-27] MEDS: PANTOPRAZOLE 40 MG TABLET PO SCH (06:34)
[2023-01-27 08:57] LABS: Basophils # (A) 0.09 X 10*3/uL (0.00-0.10); Basophils % (A) 1.7 %; Eosinophils # (A) 0.16 X 10*3/uL (0.04-0.35); Eosinophils % (A) 3.1 %; HCT 34.4 % (39.6-50.0); Lymphocytes # (A) 1.48 X 10*3/uL (0.90-5.00); Lymphocytes % (A) 28.4 %; MCH 27.2 pg (27.0-32.0); MCV 85.1 FL (80.0-97.0); Mean Platelet Volume 9.4 FL (9.5-12.2); Monocytes # (A) 1.15 X 10*3/uL (0.20-1.00); NRBC Per 100 WBC 0 X 10*3/uL (0.00-0.01); Neutrophils # (A) 2.33 X 10*3/uL (1.80-7.70); Neutrophils % (A) 44.6 %; Platelet Count 336 X 10*3/uL (140-440); RBC 4.04 X 10*6/uL (4.40-5.60); RDW 15.1 % (11.5-14.5); WBC 5.22 X 10*3/uL (4.50-10.00)
[2023-01-27 09:15] LABS: BUN/Creat Ratio 9.91 Ratio (12.00-20.00); Blood Urea Nitrogen 10.9 mg/dL (9.0-27.0); Calcium 9.3 mg/dL (8.7-10.3); Carbon Dioxide 26.9 mmol/L (21.6-31.8); Chloride 102 mmol/L (96-109); Glucose 78 mg/dL (70-110); Sodium 139 mmol/L (135-145)
[2023-01-27] MEDS: SODIUM CHLORIDE 0.9% 1,000 ML IV SCH ×3 (09:48→23:03)
[2023-01-27] MEDS: METOPROLOL TARTRATE 25 MG TAB PO SCH ×2 (09:48→21:02)
[2023-01-27] MEDS: lisinopriL 5 MG TAB PO SCH (09:48)
[2023-01-27] MEDS: APIXABAN 2.5 MG TABLET PO SCH ×2 (09:48→21:02)
[2023-01-27] MEDS: FAMOTIDINE 20 MG TAB PO SCH (09:48)
[2023-01-27] MEDS: THIAMINE 100 MG TAB PO SCH (09:48)
[2023-01-27] MEDS ORDERED: VANCOMYCIN TROUGH DUE 1 EACH MISC MISCELLANE ONE (13:00)
[2023-01-27] MEDS: VANCOMYCIN 1,250 MG in SODIUM CHLORIDE 0.9% 250 ML IVPB SCH (15:01)
--- NOTE | 2023-01-27 16:06 | P.PN ---
Subjective Progress Note Date: 01/27/23 * 87-year-old gentleman with past medical history significant for coronary artery disease, hyperlipidemia, hypertension, cardiomyopathy, atrial fibrillation sent in from [place] office due to worsening back infection. Patient was sent in for evaluation of abscess of his back patient has been complaining of back discomfort. The patient was started on outpatient antibiotic cefdinir. He started to no drainage. And the abscess was noted to get larger. Patient was instructed to come to emergency department for IV antibiotics and MRI for better evaluation * Workup initiated in ER include hepatology which were WBC of 5.3 hemoglobin 10.6 platelet count of 293. Serum chemistry showed sodium 133 potassium 5.4 chloride 99 by mouth and 22 And 1.08 CRP 2.7 * Patient had an MRI thoracic spine done which showed soft tissue cellulitis. Mattress changes and mid back without extension into spine * Consultations obtained from orthopedic as well as infectious disease 01/26/2023 -- the patient is seen and evaluated in room at bedside; remains to be afebrile the patient is breathing comfortably on room air and not requiring supplemental oxygen, the patient denies chest pain and no significant cough, patient denies abdominal pain and no nausea/vomiting or diarrhea , patient denies any worsening pain to the mid back - Lab review reveals white count of 5.19, hemoglobin of 11.0, platelet count 352, sodium 139, potassium 4.1, BUN 11.4 and creatinine is 1.1 cultures are currently growing e MRSA patient with the mid back likely infected pressure ulcer as there was evidence of slight purulent drainage on pressure which was cultured likely from gram- positive skin ishmael that has failed outpatient oral symptomatic therapy Patient is status post surgical drainage and deep culture which are currently growing MRSA -patient has shown clinical improvment and pt got PICC, plan is to continue with vancomycin pharmacy to dose x 2-3 weeks depending upon his clinical response 01/27/2023 Patient is seen and evaluated in room at bedside; discussed with nursing staff; no specific complaints reported Vital signs are reviewed; patient remains afebrile -- Patient is status post debridement infected pressure ulcer/abscess on the back; deep culture growing MRSA; patient does have a PICC line in place along with the wound VAC -- ID on board and recommending to continue antibiotics for 2-3 weeks -- PT/OT consulted; patient is recommended subacute rehab Objective - Vital Signs Vital signs: Vital Signs Temp 98.3 F 01/27/23 06:56 Pulse 52 L 01/27/23 06:56 Resp 17 01/27/23 06:56 BP 145/74 01/27/23 06:56 Pulse Ox 98 01/27/23 06:56 FiO2 Intake & Output 01/26/23 01/27/23 01/27/23 18:59 06:59 18:59 Output Total 450 1410 250 Balance -450 -1410 -250 Output: Urine 450 1410 250 Other: Voiding Method Toilet Urinal Urinal # Voids 2 # Bowel Movements 1 - Exam GENERAL: The patient is alert and oriented x3, not in any acute distress. Well developed, well nourished. HEENT: Pupils are round and equally reacting to light. EOMI. No scleral icterus. No conjunctival pallor. Normocephalic, atraumatic. No pharyngeal erythema. No thyromegaly. CARDIOVASCULAR: S1 and S2 present. No murmurs, rubs, or gallops. PULMONARY: Chest is clear to auscultation, no wheezing or crackles. ABDOMEN: Soft, nontender, nondistended, normoactive bowel sounds. No palpable organomegaly. MUSCULOSKELETAL: Status post I & D, wound VAC in place EXTREMITIES: No cyanosis, clubbing, or pedal edema. NEUROLOGICAL: Gross neurological examination did not reveal any focal deficits. SKIN: No rashes. - Labs CBC & Chem 7: 01/27/23 05:30 01/27/23 05:30 Labs: Abnormal Lab Results - Last 24 Hours (Table) 01/27/23 01/27/23 Range/Units 05:30 05:30 RBC 4.04 L (4.40-5.60) X 10*6/uL Hgb 11.0 L (13.0-17.0) d/dL Hct 34.4 L (39.6-50.0) % RDW 15.1 H (11.5-14.5) % MPV 9.4 L (9.5-12.2) FL Monocytes # 1.15 H (0.20-1.00) X 10*3/uL BUN/Creatinine Ratio 9.91 L (12.00-20.00) Ratio Microbiology - Last 24 Hours (Table) 01/21/23 13:13 Blood Culture - Final Blood 01/21/23 13:13 Blood Culture - Final Blood Assessment and Plan Assessment: * Purulent cellulitis of back with abcess with out spine involvement T spine area S/P i & d pod 2 * History of atrial fibrillation on anticoagulation * Hyperlipidemia * Hypertension * Coronary artery disease * Hyperkalemia on admission * Consult obtained from infectious disease, orthospine * In regards to cellulitis Continue patient on IV vancomycin appreciate input from infectious disease, wound culture grew MRSA, will need final antibiotic plan per infectious disease * In regards to history of atrial fibrillation patient on metoprolol, Eliquis resume postprocedure * In regards to hypertension continue lisinopril and metoprolol * In regards to hyperkalemia and renal function followed up follow-up potassium levels within normal limits * CODE STATUS is full code
[2023-01-27] MEDS: ATORVASTATIN 20 MG TAB PO SCH (21:02)
[2023-01-27] MEDS: LATANOPROST 0.005% OPHTH DROPS 2.5 ML BTL BOTH EYES SCH (21:05)
[2023-01-28] MEDS: PANTOPRAZOLE 40 MG TABLET PO SCH (06:24)
[2023-01-28] MEDS: FAMOTIDINE 20 MG TAB PO SCH (08:10)
[2023-01-28] MEDS: THIAMINE 100 MG TAB PO SCH (08:10)
[2023-01-28] MEDS: METOPROLOL TARTRATE 25 MG TAB PO SCH ×2 (08:10→20:10)
[2023-01-28] MEDS: lisinopriL 5 MG TAB PO SCH (08:10)
[2023-01-28] MEDS: APIXABAN 2.5 MG TABLET PO SCH ×2 (08:10→20:10)
[2023-01-28 08:51] LABS: Basophils # (A) 0.08 X 10*3/uL (0.00-0.10); Basophils % (A) 1.4 %; Eosinophils # (A) 0.16 X 10*3/uL (0.04-0.35); Eosinophils % (A) 2.9 %; HCT 33.8 % (39.6-50.0); HGB 10.9 d/dL (13.0-17.0); Lymphocytes # (A) 1.61 X 10*3/uL (0.90-5.00); Lymphocytes % (A) 29.1 %; MCH 27.5 pg (27.0-32.0); MCHC 32.2 d/dL (32.0-37.0); MCV 85.1 FL (80.0-97.0); Monocytes # (A) 1.24 X 10*3/uL (0.20-1.00); Monocytes % (A) 22.4 %; NRBC Per 100 WBC 0 X 10*3/uL (0.00-0.01); Neutrophils # (A) 2.42 X 10*3/uL (1.80-7.70); Neutrophils % (A) 43.8 %; Platelet Count 343 X 10*3/uL (140-440); RBC 3.97 X 10*6/uL (4.40-5.60); RDW 15.3 % (11.5-14.5); WBC 5.53 X 10*3/uL (4.50-10.00)
[2023-01-28 09:17] LABS: Blood Urea Nitrogen 13.2 mg/dL (9.0-27.0); Carbon Dioxide 24.9 mmol/L (21.6-31.8); Chloride 102 mmol/L (96-109); Glucose 82 mg/dL (70-110); Sodium 137 mmol/L (135-145)
[2023-01-28] MEDS: VANCOMYCIN 1,000 MG in SODIUM CHLORIDE 0.9% 250 ML IVPB SCH ×2 (09:41→23:56)
--- NOTE | 2023-01-28 12:41 | P.PN ---
Subjective Progress Note Date: 01/27/23 Principal diagnosis: Midback abscess Patient is a 87-year-old male with a past medical his significant for hypertension hyperlipidemia coronary artery disease patient has been brought into the hospital for evaluation of abscess to his back, worse CT and MRI did shows phlegmonous cellulitis. Patient is status post surgical debridement of the infected mid back pressure ulcer/abscess on 01/23/2023, no mention of any deep collection On today's evaluation that is 01/27/2023, the patient continues to be afebrile the patient is breathing comfortably on room air, the patient denies chest pain, shortness of breath or cough, patient denies abdominal pain, no nausea/vomiting and no diarrhea has been reported, the patient pain to the mid back is currently controlled Patient did have white count of 5.22, creatinine is 1.1 cultures are currently grew MRSA, blood culture negative Objective - Vital Signs Vital signs: Vital Signs Temp 98.0 F 01/27/23 13:37 Pulse 57 L 01/27/23 13:37 Resp 16 01/27/23 13:37 BP 153/80 01/27/23 13:37 Pulse Ox 97 01/27/23 13:37 FiO2 Intake & Output 01/26/23 01/27/23 01/27/23 18:59 06:59 18:59 Output Total 450 1410 825 Balance -450 -1410 -825 Output: Urine 450 1410 825 Other: Voiding Method Toilet Urinal Urinal # Voids 2 # Bowel Movements 1 - Exam GENERAL DESCRIPTION: An elderly male lying in bed in no distress RESPIRATORY SYSTEM: Unlabored breathing , decreased breath sounds at bases HEART: S1 S2 regular rate and rhythm , ABDOMEN: Soft , no tenderness EXTREMITIES: No edema feet , midback covered with wound vac - Labs CBC & Chem 7: 01/28/23 05:13 01/28/23 05:13 Labs: Abnormal Lab Results - Last 24 Hours (Table) 01/27/23 01/27/23 Range/Units 05:30 05:30 RBC 4.04 L (4.40-5.60) X 10*6/uL Hgb 11.0 L (13.0-17.0) d/dL Hct 34.4 L (39.6-50.0) % RDW 15.1 H (11.5-14.5) % MPV 9.4 L (9.5-12.2) FL Monocytes # 1.15 H (0.20-1.00) X 10*3/uL BUN/Creatinine Ratio 9.91 L (12.00-20.00) Ratio Microbiology - Last 24 Hours (Table) 01/23/23 10:26 Anaerobic Culture - Final Back 01/23/23 10:26 Anaerobic Culture - Final Back 01/21/23 13:13 Blood Culture - Final Blood 01/21/23 13:13 Blood Culture - Final Blood Assessment and Plan (1) Abscess of back Current Visit: Yes Status: Acute Code(s): L02.212 - CUTANEOUS ABSCESS OF BACK [ANY PART, EXCEPT BUTTOCK] SNOMED Code(s): 964549433 Plan: 1patient with the mid back likely infected pressure ulcer as there was evidence of slight purulent drainage on pressure which was cultured likely from gram- positive skin ishmael that has failed outpatient oral symptomatic therapy 2Patient is status post surgical drainage and deep culture which are currently growing MRSA 3-patient has shown clinical improvment and the patient did get a PICC line 4-patient to continue with vancomycin pharmacy to dose x 2-3 weeks depending upon his clinical response Dictation was produced using [employer] dictation software. please excuse any grammatical, word or spelling errors. Time with Patient: Less than 30
--- NOTE | 2023-01-28 12:42 | P.PN ---
Subjective Progress Note Date: 01/28/23 Principal diagnosis: Midback abscess Patient is a 87-year-old male with a past medical his significant for hypertension hyperlipidemia coronary artery disease patient has been brought into the hospital for evaluation of abscess to his back, worse CT and MRI did shows phlegmonous cellulitis. Patient is status post surgical debridement of the infected mid back pressure ulcer/abscess on 01/23/2023, no mention of any deep collection On today's evaluation that is 01/28/2023, the patient remains to be afebrile, the patient is breathing comfortably on room air without the need for supplemental oxygen and no shortness of breath, the patient denies having any chest pain or cough, patient denies nausea/vomiting /diarrhea and no abdominal pain, the patient denies pain to the mid back Patient did have white count of 5.53, creatinine is 1.1 cultures are currently grew MRSA, blood culture negative Objective - Vital Signs Vital signs: Vital Signs Temp 97.5 F L 01/28/23 06:50 Pulse 59 L 01/28/23 08:00 Resp 17 01/28/23 08:00 BP 167/83 01/28/23 06:50 Pulse Ox 96 01/28/23 06:50 FiO2 Intake & Output 01/27/23 01/28/23 01/28/23 18:59 06:59 18:59 Output Total 825 350 Balance -825 -350 Output: Urine 825 350 Other: Voiding Method Urinal Urinal Urinal # Voids 1 - Exam GENERAL DESCRIPTION: An elderly male lying in bed in no distress RESPIRATORY SYSTEM: Unlabored breathing , decreased breath sounds at bases HEART: S1 S2 regular rate and rhythm , ABDOMEN: Soft , no tenderness EXTREMITIES: No edema feet , midback covered with wound vac - Labs CBC & Chem 7: 01/28/23 05:13 01/28/23 05:13 Labs: Abnormal Lab Results - Last 24 Hours (Table) 01/28/23 Range/Units 05:13 RBC 3.97 L (4.40-5.60) X 10*6/uL Hgb 10.9 L (13.0-17.0) d/dL Hct 33.8 L (39.6-50.0) % RDW 15.3 H (11.5-14.5) % Monocytes # 1.24 H (0.20-1.00) X 10*3/uL Microbiology - Last 24 Hours (Table) 01/23/23 10:26 Anaerobic Culture - Final Back 01/23/23 10:26 Anaerobic Culture - Final Back Assessment and Plan (1) Abscess of back Current Visit: Yes Status: Acute Code(s): L02.212 - CUTANEOUS ABSCESS OF BACK [ANY PART, EXCEPT BUTTOCK] SNOMED Code(s): 965497769 Plan: 1patient with the mid back likely infected pressure ulcer as there was evidence of slight purulent drainage on pressure which was cultured likely from gram-pos itive skin ismhael that has failed outpatient oral symptomatic therapy 2Patient is status post surgical drainage and deep culture which are currently growing MRSA 3-patient has shown clinical improvment and the patient did get a PICC line 4-patient to continue with vancomycin pharmacy to dose x 2 weeks on discharge and close outpatient follow-up Dictation was produced using [employer] dictation software. please excuse any grammatical, word or spelling errors. Time with Patient: Less than 30
[2023-01-28 13:30] VITALS: BMI 22.3
--- NOTE | 2023-01-28 15:44 | P.DS ---
Providers Date of admission: 01/21/23 15:58 Expected date of discharge: 01/28/23 Attending physician: Tarah Chavez MD Consults: 01/21/23 15:59 Consult Physician Stat Consulting Provider: Omi Fisher Consult Reason/Comments: Phlegmonous cellulitis, abscess on mid back Do you want consulting provider notified?: Yes 01/21/23 16:16 Consult Physician Stat Consulting Provider: Isaiah Maza Consult Reason/Comments: Phlegmon to mid back Do you want consulting provider notified?: Already Contacted Primary care physician: Saturnino Espinoza Hospital Course: Final diagnosis Purulent cellulitis of the back with abscess without spine involvement in the T- spine area status post incision and drainage with cultures growing MRSA History of atrial fibrillation maintained on anticoagulation, currently rate controlled Hyperlipidemia Hypertension Coronary artery disease history Hyperkalemia, on admission, resolved 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 GI prophylaxis DVT prophylaxis Full code Discharge disposition Patient is being discharged in a stable condition with guarded prognosis to [facility]. Patient will follow-up with Dr. Espinoza in the outpatient setting upon discharge. Patient is to continue on IV vancomycin every 16 hours for the next 2 weeks per ID recommendations and also recommend scheduled labs of CBC, CMP, CK, CRP and Vanco troughs per pharmacy as scheduled. Recommend outpatient follow-up with orthopedics as well as infectious disease. Total time taken is greater than 35 minutes. Hospital course This is a 87-year-old male who was recently admitted with worsening back infection. Patient was sent in for evaluation of his abscess on his back and having worsening back pain. Patient was initially started on outpatient antibiotics and the abscess began to worsen an increase in size and sent to the ER for further evaluation including possible MRI. Infectious disease following and patient will continue on Vanco every 16 hours with pharmacy to dose for the next 2 weeks. Patient did receive a PICC line and was also evaluated by orthopedics and culture showing MRSA. Patient did have surgical drainage and deep cultures with orthopedics. Patient to continue with prevana wound dressing and to be evaluated at the F by wound care nurse to continue with the stressing at this time. Patient was evaluated by wound care nurse practitioner recommending to continue with the stressing. Patient to be seen in the outpatient setting by the wound care as well as infectious disease and orthopedics. Patient has been cleared by consultations. Please refer to consultation notes for further HPI. Currently no reports of chest pain, shortness of breath, or palpitations. Patient is afebrile. No reports of nausea or vomiting and patient is tolerating diet. Patient will be going to [facility] today. Physical exam: Gen: This is a 79-year-old male who is awake, alert and oriented 3, thin built, elderly appearing HEENT: Head is atraumatic, normocephalic. Pupils equal, round. Sclerae is anicteric. NECK: Supple. No JVD. No lymphadenopathy. No thyromegaly. LUNGS: Clear to auscultation. No wheezes or rhonchi. No intercostal retractions. HEART: Regular rate and rhythm. No murmur. ABDOMEN: Soft. Bowel sounds are present. No masses. No tenderness. EXTREMITIES: No pedal edema. No calf tenderness. NEUROLOGICAL: Patient is awake, alert and oriented x3. Cranial nerves 2 through 12 are grossly intact. Diffusely weak Please refer to medication reconciliation sheet for a list of medications. The impression and plan of care has been dictated by Akila Clemente, Nurse Practitioner as directed. Dr. Kyra MD I have performed a history and examination and MDM of this patient, discussed the same with the dictator, and agree with the dictator's assessment and plan as written ,documented as a scribe. Based on total visit time, I have performed more than 50% of the visit. Patient Condition at Discharge: Fair Plan - Discharge Summary New Discharge Prescriptions: New Acetaminophen Tab [Tylenol] 650 mg PO Q6HR PRN tab PRN Reason: Mild Pain Or Fever > 100.5 Vancomycin 1,000 mg IVPB Q16H 14 Days #14 each Sennosides-Docusate Sodium [Senokot-S] 2 each PO DAILY PRN tab PRN Reason: Constipation Continue Latanoprost Ophth [Xalatan 0.005%] 1 drop BOTH EYES HS Thiamine [Vitamin B-1] 100 mg PO DAILY #30 tab Famotidine [Pepcid] 20 mg PO DAILY Albuterol Inhaler [Ventolin Hfa Inhaler] 2 puff INHALATION RT-Q6H PRN PRN Reason: Shortness Of Breath Ipratropium-Albuterol Nebulize [Duoneb 0.5 mg-3 mg/3 ml Soln] 3 ml INHALATION RT-QID PRN each PRN Reason: Shortness Of Breath Or Wheezing Magnesium Hydroxide [Milk of Magnesia] 2,400 mg PO DAILY PRN PRN Reason: Constipation lisinopriL [Zestril] 5 mg PO DAILY #30 tab Apixaban [Eliquis] 2.5 mg PO BID Metoprolol Tartrate [Lopressor] 25 mg PO BID tab Atorvastatin [Lipitor] 20 mg PO HS Omeprazole [PriLOSEC] 20 mg PO DAILY Cefdinir [Omnicef] 300 mg PO BID Discharge Medication List Latanoprost Ophth [Xalatan 0.005%] 1 drop BOTH EYES HS 01/02/17 [History] Thiamine [Vitamin B-1] 100 mg PO DAILY #30 tab 11/27/21 [Rx] lisinopriL [Zestril] 5 mg PO DAILY #30 tab 11/27/21 [Rx] Apixaban [Eliquis] 2.5 mg PO BID 08/29/22 [History] Famotidine [Pepcid] 20 mg PO DAILY 08/29/22 [History] Albuterol Inhaler [Ventolin Hfa Inhaler] 2 puff INHALATION RT-Q6H PRN 10/27/22 [History] Ipratropium-Albuterol Nebulize [Duoneb 0.5 mg-3 mg/3 ml Soln] 3 ml INHALATION RT-QID PRN each 10/30/22 [Rx] Metoprolol Tartrate [Lopressor] 25 mg PO BID tab 10/30/22 [Rx] Atorvastatin [Lipitor] 20 mg PO HS 01/21/23 [History] Cefdinir [Omnicef] 300 mg PO BID 01/21/23 [History] Magnesium Hydroxide [Milk of Magnesia] 2,400 mg PO DAILY PRN 01/21/23 [History] Omeprazole [PriLOSEC] 20 mg PO DAILY 01/21/23 [History] Acetaminophen Tab [Tylenol] 650 mg PO Q6HR PRN tab 01/28/23 [Rx] Sennosides-Docusate Sodium [Senokot-S] 2 each PO DAILY PRN tab 01/28/23 [Rx] Vancomycin 1,000 mg IVPB Q16H 14 Days #14 each 01/28/23 [Rx] Follow up Appointment(s)/Referral(s): Saturnino Espinoza MD [Primary Care Provider] - 1-2 days Gary Zaragoza PAC [PHYSICIAN TRACK LEADER] - 1 Week (Patient may follow-up with Gary Zaragoza PA-C or Dr. Regino Maza at [facility] in 1 week following discharge. ) Wound [facility] [NON-STAFF] - As Needed Omi Fisher MD [STAFF PHYSICIAN] - 1 Week Activity/Diet/Wound Care/Special Instructions: 1. Patient will keep wound VAC intact until discharged to rehabilitation facility 2. Wound VAC and wound care to be managed by nursing staff and wound care staff at the rehabilitation facility 3. Patient to increase his mobility and ambulation with physical therapy 4. Patient may participate in his regular activities of daily living to his tolerance Patient is going to [facility] as tolerated Patient to continue with vancomycin every 16 hours with pharmacy to dose for 2 weeks per ID recommendations Follow-up with infectious disease outpatient Follow-up with orthopedics outpatient Continue with wound care Repeat labs of CBC, CMP, CK, CRP and Vanco troughs per pharmacy Continue regular diet Discharge Disposition: TRANSFER TO SNF/ECF
[2023-01-28] MEDS: SODIUM CHLORIDE 0.9% 1,000 ML IV SCH ×2 (19:37)
[2023-01-28] MEDS: ATORVASTATIN 20 MG TAB PO SCH (20:10)
[2023-01-28] MEDS: LATANOPROST 0.005% OPHTH DROPS 2.5 ML BTL BOTH EYES SCH (20:11)
[2023-01-28 20:34] VITALS: RESP 16
[2023-01-29] MEDS: SODIUM CHLORIDE 0.9% 1,000 ML IV SCH ×2 (02:52→10:14)
[2023-01-29 06:13] LABS: African American GFR (CKD) 73 (>60 ml/min/1.73 sqM); Non-African American GFR(CKD) 64 (>60 ml/min/1.73 sqM)
[2023-01-29] MEDS: PANTOPRAZOLE 40 MG TABLET PO SCH (06:35)
[2023-01-29 08:22] VITALS: BP 142/77; PULSE 52; TEMP 98.7
--- NOTE | 2023-01-29 08:39 | P.PN ---
Progress Note - Text Progress Note Date: 01/29/23 Orthopedic spine: History of present illness: Patient is a very pleasant 87-year-old male who is seen and examined at the bedside for follow-up evaluation of his thoracic spine. He is status post excisional debridement of infected midthoracic pressure ulcer approximately 3 x 3 cm superficially and 5 x 5 cm at the deep soft tissue with irrigation and debridement of soft tissue abscess at the midthoracic spine with placement of Prevena wound VAC performed on 01/23/2023.. The wound VAC has remained intact and is clean and dry. His pain has been medically controlled and his midthoracic spine. He continues to deny any lower extremity weakness or radiculopathy. Good range of motion of his lower extremities. He does utilize a walker to aid in ambulation. He is eating and voiding without difficulty. He had a bowel movement. He has been seen by Dr. Fisher in infectious disease. Cultures were showing evidence of growing MRSA. He is been started on vancomycin. PICC line has been placed. Infectious diseases planning for vancomycin for 2 weeks following discharge. Prevena wound VAC is discontinued at the bedside today. New dressing with Adaptic, nonstick, ABDs, and paper tape was reapplied. Wound care will be further contacted for reevaluation for recommendations for wound care treatment at the time of discharge. Patient is planning for discharge to a rehabilitation facility today. Patient has no complaints of the bedside and feels he is ready for discharge. He is admitted to medicine. His other medical diagnoses include coronary artery disease, hyperlipidemia, and hypertension. Currently he is not complaining of any other symptoms at the bedside. Physical exam: Postoperative day #6 Patient is awake, alert, and oriented 3 Vital signs stable Good chest excursion with deep inspiration and expiration Examination of lumbar spine reveals skin is intact with no abrasions, lacerations, or bruises; no erythema, purulence or signs of infection Examination of the thoracic spine shows some increased kyphosis Evidence of wound VAC intact at the midthoracic spine which is clean and dry; wound VAC is discontinued at the bedside Evidence of open wound at the midthoracic spine which does show some granulation tissue with some wound healing without active drainage No significant erythema or purulent discharge at the midthoracic wound site Some mild bleeding at the wound edges Dorsiflexion, plantarflexion, and extensor hallucis longus positive sustained bilaterally Lower extremity strength 5/5 bilaterally Good active range of motion of bilateral lower extremities independently without difficulty Neurovascularly intact Pertinent studies: CT of the thoracic spine taken on 01/21/2023: Left mid back level at approximately T9-10 heterogeneous edematous region without rim enhancing fluid collection in which findings suggest phlegmonous change; multilevel thoracic degenerative disc disease; no spinal canal or neural foraminal stenosis identified; healing posterior left 10th, 11th, and 12 rib fractures with callus formation MRI of the thoracic spine taken on 01/21/2023: Soft tissue phlegmon as last cellulitis change of the mid back without evidence for extension into the spine Assessment: Status post excisional debridement of infected midthoracic pressure ulcer approximately 3 x 3 cm superficially and 5 x 5 cm at the deep soft tissue with irrigation and debridement of soft tissue abscess at the midthoracic Placement of wound VAC at the midthoracic spine has been discontinued Midthoracic pressure ulcer infection, culture growing MRSA Midthoracic heterogeneous edematous region without rim enhancing fluid collection to suggest phlegmonous change Soft tissue phlegmonous/cellulitis change of the mid thoracic spine without evidence for extension into the spine Thoracic back pain Failed outpatient antibiotics Hypertension Hyperlipidemia Coronary artery disease Healing left hand, 11th, 12th rib fractures Plan: 1. Patient is status post excisional debridement of infected midthoracic pressure ulcer approximately 3 x 3 cm superficially and 5 x 5 cm at the deep so ft tissue With irrigation and debridement of soft tissue abscess at the midthoracic with placement of wound VAC. This wound VAC remains clean, dry, and intact. Prevena wound VAC is discontinued at the bedside today. New dressing with Adaptic, nonstick, ABDs, and paper tape was reapplied. Wound care will be further contacted today for reevaluation for recommendations for wound care treatment at the rehabilitation facility in which she is being transferred to. Patient will also most likely need long-term wound care in the outpatient setting. Patient continues to be seen examined by Dr. Fisher in infectious disease. The Grigsby has been placed. Patient continues with vancomycin. They're planning for vancomycin for approximately 2 weeks following discharge. Cultures are currently growing MRSA. From an orthopedic spine standpoint, we're not currently planning for any further surgical intervention. He may continue to increase his mobility and ambulation with physical therapy. He may continue medications as prescribed by infectious disease and medicine. We recommend wound care per recommendations of the wound care team. Patient is clear for discharge from orthopedic standpoint. We will plan to have him follow-up in the outpatient setting in approximately 1 week for further evaluation. Patient may follow-up with Gary Zaragoza PA-C or Dr. Regino Maza at [facility] in 1 week following discharge. 2. Patient will continue be seen and examined by medicine for his multiple other medical diagnoses. He is admitted to medicine. His other medical di agnoses include coronary artery disease, hyperlipidemia, and hypertension.
--- NOTE | 2023-01-29 10:06 | P.PN ---
Subjective Progress Note Date: 01/29/23 This is an 87-year-old patient being seen on 4 S. for a post debridement of a infected spinal abscess. Patient had a subcutaneous abscess of the posterior thoracic spine. Patient currently has a incisional negative pressure wound VAC in place. That dressing will stay in place for approximately 7-14 days as poor surgical recommendations. Ulceration is showing granulation to the wound bed. Discussed with patient and family the need for continued advanced wound care and a outpatient setting. Patient is going to [facility] and will be having wound care at the facility. 01/29/2023: Was asked to reconsult patient now that the incisional wound VAC has been removed. Patient has a open ulceration measuring approximately 2 x 2 by 0.3 cm with granulation noted no tunneling or undermining noted. Patient has Slough and nonviable tissue present to the wound bed. The periwound shows no excoriation or maceration at this time. Review Of Systems: Constitutional: No fever, no chills, no night sweats. No weight change. No weakness, fatigue or lethargy. No daytime sleepiness. Integumentary:reports wounds, no lesions. No rash or pruritus. No unusual bruising. No change in hair or nails. Physical exam: General Appearance: Alert, cooperative, no distress, appears stated age. Skin: See HPI all other Skin color, texture, tugor normal, no rashes or lesions. Neurologic: Alert oriented x3 Assessment: 1. Nonhealing ulceration of other site with fat layer exposure Plan: 1. Apply collagen, saline moistened gauze, border foam change Saturday. Patient will require follow-up in the wound care setting. Patient has decided to remain at the [facility] for wound care. We will be happy to see him if he changes his mind or needs further care Thank you for the consultation any questions please contact the wound care center DNP note has been reviewed and discussed with Dr. Huynh and the impression and plan of care has been directed as dictated. Objective - Vital Signs Vital signs: Vital Signs Temp 98.7 F 01/29/23 07:17 Pulse 52 L 01/29/23 07:17 Resp 16 01/29/23 07:17 BP 142/77 01/29/23 07:17 Pulse Ox 90 L 01/29/23 07:17 FiO2 Intake & Output 01/28/23 01/29/23 01/29/23 18:59 06:59 18:59 Output Total 300 820 400 Balance -300 -820 -400 Weight 72.575 kg Output: Urine 300 820 400 Other: Voiding Method Urinal Urinal # Bowel Movements 1 - Labs CBC & Chem 7: 01/28/23 05:13 01/29/23 05:42 Assessment and Plan (1) Non-pressure chronic ulcer of skin of other sites with fat layer exposed Current Visit: Yes Status: Acute Code(s): L98.492 - NON-PRS CHRONIC ULCER OF SKIN OF SITES W FAT LAYER EXPOSED SNOMED Code(s): 46366961
[2023-01-29] MEDS: THIAMINE 100 MG TAB PO SCH (10:32)
[2023-01-29] MEDS: FAMOTIDINE 20 MG TAB PO SCH (10:32)
[2023-01-29] MEDS: lisinopriL 5 MG TAB PO SCH (10:32)
[2023-01-29] MEDS: APIXABAN 2.5 MG TABLET PO SCH (10:32)
[2023-01-29] MEDS: METOPROLOL TARTRATE 25 MG TAB PO SCH (10:32)
--- NOTE | 2023-01-29 12:24 | P.PN ---
Subjective Progress Note Date: 01/29/23 Principal diagnosis: Midback abscess Patient is a 87-year-old male with a past medical his significant for hypertension hyperlipidemia coronary artery disease patient has been brought into the hospital for evaluation of abscess to his back, worse CT and MRI did shows phlegmonous cellulitis. Patient is status post surgical debridement of the infected mid back pressure ulcer/abscess on 01/23/2023, no mention of any deep collection On today's evaluation that is 01/28/2023, the patient remains to be afebrile, the patient is breathing comfortably on room air without the need for supplemental oxygen and no shortness of breath, the patient denies having any chest pain or cough, patient denies nausea/vomiting /diarrhea and no abdominal pain, the patient denies pain to the mid back Patient did have white count of 5.53 as of yesterday, creatinine is 1.05 cultures are currently grew MRSA, blood culture negative Objective - Vital Signs Vital signs: Vital Signs Temp 98.7 F 01/29/23 07:17 Pulse 52 L 01/29/23 07:17 Resp 16 01/29/23 07:17 BP 142/77 01/29/23 07:17 Pulse Ox 90 L 01/29/23 07:17 FiO2 Intake & Output 01/28/23 01/29/23 01/29/23 18:59 06:59 18:59 Output Total 300 820 400 Balance -300 -820 -400 Weight 72.575 kg Output: Urine 300 820 400 Other: Voiding Method Urinal Urinal Toilet # Bowel Movements 1 - Exam GENERAL DESCRIPTION: An elderly male lying in bed in no distress RESPIRATORY SYSTEM: Unlabored breathing , decreased breath sounds at bases HEART: S1 S2 regular rate and rhythm , ABDOMEN: Soft , no tenderness EXTREMITIES: No edema feet , midback wound with no slough tissue minimal surrounding swelling redness - Labs CBC & Chem 7: 01/28/23 05:13 01/29/23 05:42 Assessment and Plan (1) Abscess of back Status: Acute Code(s): L02.212 - CUTANEOUS ABSCESS OF BACK [ANY PART, EXCEPT BUTTOCK] SNOMED Code(s): 590231775 Plan: 1patient with the mid back likely infected pressure ulcer as there was evidence of slight purulent drainage on pressure which was cultured likely from gram- positive skin ishmael that has failed outpatient oral symptomatic therapy 2Patient is status post surgical drainage and deep culture which are currently growing MRSA 3-patient did get a PICC line 4-patient has shown clinical improvement and continue with vancomycin pharmacy to dose x 2 weeks on discharge , local wound care with Aquacel silver dressing changed every 48 hour Dictation was produced using [employer] dictation software. please excuse any grammatical, word or spelling errors. Time with Patient: Less than 30
--- NOTE | 2023-01-29 16:23 | P.PN ---
Subjective Progress Note Date: 01/28/23 * 87-year-old gentleman with past medical history significant for coronary artery disease, hyperlipidemia, hypertension, cardiomyopathy, atrial fibrillation sent in from [place] office due to worsening back infection. Patient was sent in for evaluation of abscess of his back patient has been complaining of back discomfort. The patient was started on outpatient antibiotic cefdinir. He started to no drainage. And the abscess was noted to get larger. Patient was instructed to come to emergency department for IV antibiotics and MRI for better evaluation * Workup initiated in ER include hepatology which were WBC of 5.3 hemoglobin 10.6 platelet count of 293. Serum chemistry showed sodium 133 potassium 5.4 chloride 99 by mouth and 22 And 1.08 CRP 2.7 * Patient had an MRI thoracic spine done which showed soft tissue cellulitis. Mattress changes and mid back without extension into spine * Consultations obtained from orthopedic as well as infectious disease 01/26/2023 -- the patient is seen and evaluated in room at bedside; remains to be afebrile the patient is breathing comfortably on room air and not requiring supplemental oxygen, the patient denies chest pain and no significant cough, patient denies abdominal pain and no nausea/vomiting or diarrhea , patient denies any worsening pain to the mid back - Lab review reveals white count of 5.19, hemoglobin of 11.0, platelet count 352, sodium 139, potassium 4.1, BUN 11.4 and creatinine is 1.1 cultures are currently growing e MRSA patient with the mid back likely infected pressure ulcer as there was evidence of slight purulent drainage on pressure which was cultured likely from gram- positive skin ishmael that has failed outpatient oral symptomatic therapy Patient is status post surgical drainage and deep culture which are currently growing MRSA -patient has shown clinical improvment and pt got PICC, plan is to continue with vancomycin pharmacy to dose x 2-3 weeks depending upon his clinical response 01/27/2023 Patient is seen and evaluated in room at bedside; discussed with nursing staff; no specific complaints reported Vital signs are reviewed; patient remains afebrile -- Patient is status post debridement infected pressure ulcer/abscess on the back; deep culture growing MRSA; patient does have a PICC line in place along with the wound VAC -- ID on board and recommending to continue antibiotics for 2-3 weeks -- PT/OT consulted; patient is recommended subacute rehab 01/28/2023 Patient seen and evaluated in follow-up today and was scheduled to be discharged to ECF although continues with Prevana wound VAC and need wound care to reevaluate and provide wound care instructions. Patient is continued on antibiotics with infectious disease following and will continue on discharge as culture showed MRSA. Patient is currently afebrile with no reports of chest pain or shortness of breath. Patient is tolerating diet with no reported nausea or vomiting. Case management is following and will discharge in 24 hours Review of systems: Constitutional: No reports of fatigue, fever, or chills Cardiovascular: No reports of chest pain or palpitations Respiratory: No reports of shortness of breath or cough GI: No reports of nausea, vomiting, or diarrhea : No reports of dysuria or retention Neurovascular: No reports of weakness or numbness All medications have been reviewed Physical exam: GENERAL: The patient is alert and oriented x3, not in any acute distress. Well developed, well nourished. HEENT: Pupils are round and equally reacting to light. EOMI. No scleral icterus. No conjunctival pallor. Normocephalic, atraumatic. No pharyngeal erythema. No thyromegaly. CARDIOVASCULAR: S1 and S2 present. No murmurs, rubs, or gallops. PULMONARY: Chest is clear to auscultation, no wheezing or crackles. ABDOMEN: Soft, nontender, nondistended, normoactive bowel sounds. No palpable organomegaly. MUSCULOSKELETAL: Status post I & D, wound VAC in place EXTREMITIES: No cyanosis, clubbing, or pedal edema. NEUROLOGICAL: Gross neurological examination did not reveal any focal deficits. SKIN: No rashes. Assessment: Purulent cellulitis of back with abcess with out spine involvement T spine area S/P i & d History of atrial fibrillation on anticoagulation Hyperlipidemia Hypertension Coronary artery disease Hyperkalemia on admission, resolved GI prophylaxis DVT prophylaxis Full code Plan: Patient is continued on IV antibiotics with infectious disease following orthopedics has cleared the patient for discharge to ECF Patient continues with pre-Everetts wound VAC and awaiting wound care nurse for discharge wound care recommendations Discussed with orthopedics and will follow-up with him in the a.m. New consult placed to wound care and appreciate input and recommendations Case management/social work following and has insurance authorization and will be discharging in 24 hours The impression and plan of care has been dictated by Akila Clemente, Nurse Practitioner as directed. Dr. Kyra MD I have performed a history and examination and MDM of this patient, discussed the same with the dictator, and agree with the dictator's assessment and plan as written ,documented as a scribe. Based on total visit time, I have performed more than 50% of the visit. Objective - Vital Signs Vital signs: Vital Signs Temp 97.5 F L 01/28/23 06:50 Pulse 59 L 01/28/23 06:50 Resp 17 01/28/23 06:50 BP 167/83 01/28/23 06:50 Pulse Ox 96 01/28/23 06:50 FiO2 Intake & Output 01/27/23 01/28/23 01/28/23 18:59 06:59 18:59 Output Total 825 350 Balance -825 -350 Output: Urine 825 350 Other: Voiding Method Urinal Urinal # Voids 1 - Labs CBC & Chem 7: 01/28/23 05:13 01/29/23 05:42 Labs: Abnormal Lab Results - Last 24 Hours (Table) 01/28/23 Range/Units 05:13 RBC 3.97 L (4.40-5.60) X 10*6/uL Hgb 10.9 L (13.0-17.0) d/dL Hct 33.8 L (39.6-50.0) % RDW 15.3 H (11.5-14.5) % Monocytes # 1.24 H (0.20-1.00) X 10*3/uL Microbiology - Last 24 Hours (Table) 01/23/23 10:26 Anaerobic Culture - Final Back 01/23/23 10:26 Anaerobic Culture - Final Back
[2023-01-30] MEDS ORDERED: VANCOMYCIN TROUGH DUE 1 EACH MISC MISCELLANE ONE (07:00)
== END 2023-01-29 12:00 ==
LOC: EC 10:53 → 1SOBS 15:58 → INTOOBSV 15:58 → 1SOBS 17:05 → 4SSUR 01-23 18:14 → UNDODISIN 01-29 12:00
PROVIDERS: ADMIT Internal Medicine; ATTEND Internal Medicine
DX: L89.109 Pressure ulcer of unspecified part of back, unspecified stage (principal); I42.9 Cardiomyopathy, unspecified; L08.9 Local infection of the skin and subcutaneous tissue, unspecified; I25.10 Atherosclerotic heart disease of native coronary artery without angina pectoris; E78.5 Hyperlipidemia, unspecified; I10 Essential (primary) hypertension; I48.91 Unspecified atrial fibrillation; E87.5 Hyperkalemia; S22.42XD Multiple fractures of ribs, left side, subsequent encounter for fracture with routine healing; X58.XXXD Exposure to other specified factors, subsequent encounter; M47.9 Spondylosis, unspecified; F17.200 Nicotine dependence, unspecified, uncomplicated; Z79.01 Long term (current) use of anticoagulants; Z79.51 Long term (current) use of inhaled steroids; Z79.4 Long term (current) use of insulin; Z79.899 Other long term (current) drug therapy
CPT/HCPCS: 11043; 11046; 96361 ×4; 96366 ×9; 96365; 96367; 96375; 99284; 36415; 97116 ×3; 97530; 97161; 97535; 97166; 36573; 80053 ×2; 80048 ×6; 85652; 82565; 83605; 85025 ×6; 85027; 80202 ×2; 85610; 86140 ×2; 87040; 87070 ×2; 87205 ×2; 87075; 87077 ×2; 87186 ×2; 76604; 72129; 72157; G0378 ×9; J3370 ×8; J0330; J2405; J0690; J2001; J0692; J3010; J1885; J2704; A9585; J1170; Q9967; J2371; 96376; 99285

== ENCOUNTER 2023-07-03 19:39 | Inpatient (IN) | payer MEDICARE ==
[2023-07-03] MEDS: TOPICAL SKIN ADHESIVE 1 EACH AMP TOPICAL ONE (20:04)
[2023-07-03 20:50] LABS: Basophils % (A) 1 %; Eosinophils # (A) 0.1 k/uL (0-0.7); Eosinophils % (A) 1 %; HCT 33.4 % (39.0-53.0); HGB 10.7 gm/dL (13.0-17.5); Lymphocytes % (A) 13 %; MCH 27.9 pg (25.0-35.0); MCHC 32.2 g/dL (31.0-37.0); MCV 86.5 fL (80.0-100.0); Mean Platelet Volume 8.4; Monocytes # (A) 0.5 k/uL (0-1.0); Monocytes % (A) 6 %; Neutrophils # (A) 5.7 k/uL (1.3-7.7); Neutrophils % (A) 76 %; Platelet Count 211 k/uL (150-450); RBC 3.86 m/uL (4.30-5.90); RDW 14.7 % (11.5-15.5); WBC 7.6 k/uL (3.8-10.6)
[2023-07-03 20:51] LABS: INR 1.1 (<1.2); Partial Thromboplastin Time 28.5 sec (22.0-30.0); Prothrombin Time 11.8 sec (10.0-12.5)
[2023-07-03] MEDS: MORPHINE SULFATE 4 MG/ML SYRINGE IV STA (21:03)
[2023-07-03 21:05] LABS: ALT 13 U/L (4-49); AST 21 U/L (17-59); African American GFR (CKD) 60 (>60 ml/min/1.73 sqM); Albumin 3.7 g/dL (3.5-5.0); Alkaline Phosphatase 97 U/L (38-126); Anion Gap 9 mmol/L; Blood Urea Nitrogen 20 mg/dL (9-20); Calcium 8.7 mg/dL (8.4-10.2); Carbon Dioxide 25 mmol/L (22-30); Chloride 102 mmol/L (98-107); Glucose 124 mg/dL (74-99); Non-African American GFR(CKD) 52 (>60 ml/min/1.73 sqM); Sodium 136 mmol/L (137-145); Total Bilirubin 0.6 mg/dL (0.2-1.3); Total Protein 6.6 g/dL (6.3-8.2)
--- NOTE | 2023-07-03 21:36 | ED ---
Fall HPI - General Chief Complaint: Fall Stated Complaint: Fall Time Seen by Provider: 07/03/23 19:51 Source: EMS Mode of arrival: EMS - History of Present Illness Initial Comments: This 88-year-old male presents with complaint of left hip pain. He states that he did not lock his wheelchair and went to stand up and then fell directly onto his left hip. This occurred shortly prior to arrival at his retirement in long-term. He developed severe pain to his left hip. He received 100 mcg of fentanyl via EMS during transport to our hospital. He does state that he had some relief of pain. He denies any actual head injury. He denies any neck pain or back pain. He did obtain a small skin tear laceration to his left elbow. No other complaints or modifying factors. - Related Data Home Medications Medication Instructions Recorded Confirmed Latanoprost Ophth [Xalatan 0.005%] 1 drop BOTH EYES HS 01/02/17 01/21/23 Apixaban [Eliquis] 2.5 mg PO BID 08/29/22 01/21/23 Famotidine [Pepcid] 20 mg PO DAILY 08/29/22 01/21/23 Albuterol Inhaler [Ventolin Hfa 2 puff INHALATION RT-Q6H PRN 10/27/22 01/21/23 Inhaler] Atorvastatin [Lipitor] 20 mg PO HS 01/21/23 01/21/23 Cefdinir [Omnicef] 300 mg PO BID 01/21/23 01/21/23 Magnesium Hydroxide [Milk of 2,400 mg PO DAILY PRN 01/21/23 01/21/23 Magnesia] Omeprazole [PriLOSEC] 20 mg PO DAILY 01/21/23 01/21/23 Previous Rx's Medication Instructions Recorded Thiamine [Vitamin B-1] 100 mg PO DAILY #30 tab 11/27/21 lisinopriL [Zestril] 5 mg PO DAILY #30 tab 11/27/21 Ipratropium-Albuterol Nebulize 3 ml INHALATION RT-QID PRN each 10/30/22 [Duoneb 0.5 mg-3 mg/3 ml Soln] Metoprolol Tartrate [Lopressor] 25 mg PO BID tab 10/30/22 Acetaminophen Tab [Tylenol] 650 mg PO Q6HR PRN tab 01/28/23 Sennosides-Docusate Sodium 2 each PO DAILY PRN tab 01/28/23 [Senokot-S] Vancomycin 1,000 mg IVPB Q16H 14 Days #14 each 01/28/23 Allergies Allergy/AdvReac Type Severity Reaction Status Date / Time No Known Allergies Allergy Verified 01/23/23 09:05 Review of Systems ROS Statement: Those systems with pertinent positive or pertinent negative responses have been documented in the HPI. ROS Other: All systems not noted in ROS Statement are negative. Past Medical History Past Medical History: Coronary Artery Disease (CAD), Hyperlipidemia, Hypertension Additional Past Medical History / Comment(s): arthritis in back, cataracts History of Any Multi-Drug Resistant Organisms: MRSA Date of last positivie culture/infection: 01/23/23 MDRO Source:: Back Past Surgical History: Heart Catheterization, Hernia Repair, Tonsillectomy Additional Past Surgical History / Comment(s): colonoscopy, iban cataracts, wisdom teeth Past Anesthesia/Blood Transfusion Reactions: No Reported Reaction Past Psychological History: No Psychological Hx Reported Smoking Status: Light tobacco smoker Past Alcohol Use History: Occasional Past Drug Use History: None Reported - Past Family History Father Family Medical History: Cancer Additional Family Medical History / Comment(s): ca of lymph nodes General Exam - General Exam Comments Initial Comments: GENERAL: The patient is well nourished and well hydrated. VITAL SIGNS: Heart rate, blood pressure, respiratory rate reviewed as recorded in nurse's notes. EYES: Pupils are round and reactive. Extraocular movements are intact. No conjunctival / lid redness or swelling. ENT: No external evidence of injury, swelling, or ecchymosis. Airway is patent. Throat is clear. NECK: Nontender. No swelling or evidence of injury. No subcutaneous emphysema. Trachea is midline. No thyroid mass. HEART: Regular rate and rhythm. Good peripheral pulses. LUNGS/CHEST: Breath sounds clear and equal bilaterally. No rales, rhonchi, or wheezes. No ecchymosis, subcutaneous emphysema, or tenderness. ABDOMEN: Abdomen soft without tenderness. No palpable masses or organomegaly. No peritoneal signs. No abdominal wall swelling or ecchymosis. EXTREMITIES: Tenderness noted directly over the left hip. There is pain with any attempts at range of motion left hip. There is shortening and slight external rotation of the left leg. Normal muscle tone and function. No thoracolumbar tenderness. NEUROLOGIC: Sensation is grossly intact. Cranial nerve exam reveals face is symmetrical, tongue is midline, speech is clear. SKIN: There is a 3 cm skin tear laceration noted to the posterior aspect of the left elbow which is superficial in nature. No foreign bodies are identified. PSYCHIATRIC: Alert and oriented. Appropriate behavior and judgment. Limitations: no limitations Course Vital Signs 07/03/23 19:41 Temperature 97.1 F L Pulse Rate 68 Respiratory 18 Rate Blood Pressure 170/72 O2 Sat by Pulse 96 Oximetry Medical Decision Making - Medical Decision Making The patient was seen and examined. All diagnostics were reviewed. IV is established. He receives 4 mg of morphine for additional pain. An EKG was done which shows a normal sinus rhythm at a rate of 66. There is left bundle branch block noted with associated ST and T wave changes per my interpretation. The QRS is elevated at 145 and QTc interval is elevated at 500. The patient had a x-ray of the left hip which does show evidence of a fracture per my interpretation. Laboratory showed evidence of a mild anemia. The chest x-ray does not show any acute process per my interpretation. It is felt as though he would benefit from admission to the hospital with orthopedic consultation and likely surgical repair. Patient is agreeable. Case is discussed with Dr. Liriano from orthopedics and he is agreeable with admission with internal medicine and cardiology to consult. The patient should be on n.p.o. status after midnight tonight in case they are able to repair his hip tomorrow. Patient is in no distress on recheck. Was pt. sent in by a medical professional or institution (, PA, BUGGY LOADER, urgent care, hospital, or retirement...) When possible be specific @ -Patient was sent in by the retirement. Did you speak to anyone other than the patient for history (EMS, parent, family, police, friend...)? What history was obtained from this source @ -No Did you review nursing and triage notes (agree or disagree)? Why? @ -I reviewed and agree with nursing and triage notes Were old charts reviewed (outside hosp., previous admission, EMS record, old EKG, old radiological studies, urgent care reports/EKG's, retirement records)? Report findings @ -Old charts were reviewed and additional past medical history is obtained. Differential Diagnosis (chest pain, altered mental status, abdominal pain women, abdominal pain men, vaginal bleeding, weakness, fever, dyspnea, syncope, headache, dizziness, GI bleed, back pain, seizure, CVA, palpatations, mental health, musculoskeletal)? @ -Hip fracture, pelvic fracture, fall from standing, elbow laceration/skin tear. EKG interpreted by me (3pts min.). @ -As above X-rays interpreted by me (1pt min.). @ -As above CT interpreted by me (1pt min.). @ -None done U/S interpreted by me (1pt. min.). @ -None done What testing was considered but not performed or refused? (CT, X-rays, U/S, labs)? Why? @ -None What meds were considered but not given or refused? Why? @ -None Did you discuss the management of the patient with other professionals (professionals i.e. , PA, BUGGY LOADER, lab, RT, psych nurse, social media campaign manager, reconnaissance man, teacher, police commanding officer, case work aide)? Give summary @ -Case is discussed with orthopedic surgery and they are agreeable with admission. Was smoking cessation discussed for >3mins.? @ -No Was critical care preformed (if so, how long)? @ -No Were there social determinants of health that impacted care today? How? (Homelessness, low income, unemployed, alcoholism, drug addiction, transportation, low edu. Level, literacy, decrease access to med. care, long-term, rehab)? @ -No Was there de-escalation of care discussed even if they declined (Discuss DNR or withdrawal of care, Hospice)? DNR status @ -No What co-morbidities impacted this encounter? (DM, HTN, Smoking, COPD, CAD, Cancer, CVA, ARF, Chemo, Hep., AIDS, mental health diagnosis, sleep apnea, mor bid obesity)? @ -Atrial fibrillation, coronary artery disease Was patient admitted / discharged? Hospital course, mention meds given and route, prescriptions, significant lab abnormalities, going to OR and other pertinent info. @ -Patient is admitted to the hospital. Please see above. Undiagnosed new problem with uncertain prognosis? @ -No Drug Therapy requiring intensive monitoring for toxicity (Heparin, Nitro, Insulin, Cardizem)? @ -No Were any procedures done? @ -The patient has a 3 cm laceration noted to the left elbow. This was cleansed and closed with skin glue without any complications. Diagnosis/symptom? @ -Fall from standing, left hip fracture, left elbow laceration Acute, or Chronic, or Acute on Chronic? @ -Acute Uncomplicated (without systemic symptoms) or Complicated (systemic symptoms)? @ -Uncomplicated Side effects of treatment? @ -No Exacerbation, Progression, or Severe Exacerbation? @ -No Poses a threat to life or bodily function? How? (Chest pain, USA, NE, pneumonia, PE, COPD, DKA, ARF, appy, cholecystitis, CVA, Diverticulitis, Homicidal, Suicidal, threat to staff... and all critical care pts) @ -No - Lab Data Result diagrams: 07/03/23 20:31 07/03/23 20: Lab Results 07/03/23 07/03/23 07/03/23 Range/Units 20:31 20:31 20:31 WBC 7.6 (3.8-10.6) k/uL RBC 3.86 L (4.30-5.90) m/uL Hgb 10.7 L (13.0-17.5) gm/dL Hct 33.4 L (39.0-53.0) % MCV 86.5 (80.0-100.0) fL MCH 27.9 (25.0-35.0) pg MCHC 32.2 (31.0-37.0) g/dL RDW 14.7 (11.5-15.5) % Plt Count 211 (150-450) k/uL MPV 8.4 Neutrophils % 76 % Lymphocytes % 13 % Monocytes % 6 % Eosinophils % 1 % Basophils % 1 % Neutrophils # 5.7 (1.3-7.7) k/uL Lymphocytes # 1.0 (1.0-4.8) k/uL Monocytes # 0.5 (0-1.0) k/uL Eosinophils # 0.1 (0-0.7) k/uL Basophils # 0.0 (0-0.2) k/uL PT 11.8 (10.0-12.5) sec INR 1.1 (<1.2) APTT 28.5 (22.0-30.0) sec Sodium 136 L (137-145) mmol/L Potassium 4.0 (3.5-5.1) mmol/L Chloride 102 (98-107) mmol/L Carbon Dioxide 25 (22-30) mmol/L Anion Gap 9 mmol/L BUN 20 (9-20) mg/dL Creatinine 1.23 (0.66-1.25) mg/dL Est GFR (CKD-EPI)AfAm 60 (>60 ml/min/1.73 sqM) Est GFR (CKD-EPI)NonAf 52 (>60 ml/min/1.73 sqM) Glucose 124 H (74-99) mg/dL Calcium 8.7 (8.4-10.2) mg/dL Total Bilirubin 0.6 (0.2-1.3) mg/dL AST 21 (17-59) U/L ALT 13 (4-49) U/L Alkaline Phosphatase 97 (38-126) U/L Total Protein 6.6 (6.3-8.2) g/dL Albumin 3.7 (3.5-5.0) g/dL Disposition Clinical Impression: Hip fracture, left, Laceration of left elbow, Fall from standing, Hypertension Disposition: ADMITTED IP TO THIS [facility] Condition: Fair Time of Disposition: 21:36 Decision Date: 07/03/23 Decision Time: 21:36
[2023-07-03] MEDS ORDERED: NALOXONE 0.4 MG/ML 1 ML VIAL IV PRN (22:03)
[2023-07-03] MEDS ORDERED: ACETAMINOPHEN TAB 325 MG TAB PO PRN (22:03)
[2023-07-03] MEDS ORDERED: ONDANSETRON 4 MG/2 ML VIAL IVP PRN (22:03)
--- NOTE | 2023-07-03 23:03 | XR ---
EXAMINATION TYPE: XR Hip Complete LT DATE OF EXAM: 07/03/2023 9:00 PM CLINICAL INDICATION:Male, 88 years old with history of fall; [facility] COMPARISON: None. TECHNIQUE: The left hip was examined in frontal and crosstable lateral projections. FINDINGS: Osseous mineralization appears within normal limits. Mild/moderate left hip arthropathy. There is a c omplete transcervical fracture of the proximal femur with displacement and superior migration of the distal fragment relative to the femoral head, which remains articulating with the acetabulum. Regiona l soft tissue swelling present. No radiopaque foreign body. Pelvic phleboliths. IMPRESSION: Acute complete displaced transcervical fracture of the left femur.
--- NOTE | 2023-07-03 23:11 | XR ---
EXAM: XR chest 1V portable CLINICAL INDICATION:Male, 88 years old with history of fall; [facility] COMPARISON: Chest x-ray 11/30/2022 TECHNIQUE: Chest single view. FINDINGS: Lines/tubes/devices: No indwelling lines are seen. Presumed extrinsic density over the left axilla. E KG snaps over the chest. Cardiomediastinum: Cardiac silhouette appears normal in size. Tortuous ectatic aorta with atherosclerotic wall calcification, similar to previous. Somewhat promine nt hilar shadows, likely vascular, and can be seen with pulmonary hypertension. Vasculature: No increased pulmonary vasculature. Lungs/pleura: No consolidation, sizeable effusion, or visible pneumothorax. Mild hyperinflation with diffuse inters titial coarsening, likely chronic changes. Mild scarring or subsegmental atelectasis towards the lung bases. There are nodular densities suggested over the right lung base and left mid to upper lung zon e, rule out pulmonary nodules. Bones/soft tissues: Bony thorax appears grossly intact as seen. Regional soft tissues appear unremarkable. IMPRESSION: 1. Chronic lung changes, can be seen with COPD. Correlate clinically. 2. Nodular densities suggested over the lungs bilaterally, recommend CT chest for further evaluation . 3. Tortuosity and ectasia of the aorta, similar to previous. 4. Findings suggestive of pulmonary hypertension.
[2023-07-03] MEDS ORDERED: MAGNESIUM HYDROXIDE 2,400 MG/30 ML CUP PO PRN (23:18)
[2023-07-03] MEDS ORDERED: SENNOSIDES 8.6 MG TAB PO PRN (23:18)
[2023-07-03] MEDS ORDERED: ALBUTEROL NEBULIZED 2.5 MG/3 ML INHALATION PRN (23:18)
[2023-07-03] MEDS: MORPHINE SULFATE 4 MG/ML SYRINGE IV PRN (23:34)
[2023-07-03] MEDS: PANTOPRAZOLE 40 MG/10 ML VIAL IV SCH (23:35)
[2023-07-04] MEDS: METOPROLOL TARTRATE 25 MG TAB PO SCH (08:02)
[2023-07-04] MEDS: THIAMINE 100 MG TAB PO SCH (08:02)
[2023-07-04] MEDS: FAMOTIDINE 20 MG TAB PO SCH (08:02)
[2023-07-04] MEDS: lisinopriL 5 MG TAB PO SCH (08:02)
[2023-07-04] MEDS ORDERED: LANSOPRAZOLE 15 MG PO SCH (09:00)
--- NOTE | 2023-07-04 09:14 | P.HPOR ---
History of Present Illness H&P Date: 07/04/23 Chief Complaint: Left hip pain This is an 88-year-old male who is well-known to our practice and currently resides at [facility]. He states that he stood up last evening to get some ice water for himself and his foot hit the wheel of his wheelchair causing him to fall. He had immediate pain in his left hip. He was brought to the emergency department and on exam and x-ray he was found to have a femoral neck fracture of the left hip. He is admitted to our service for surgical intervention and care. Past Medical History Past Medical History: Coronary Artery Disease (CAD), Hyperlipidemia, Hypertension Additional Past Medical History / Comment(s): arthritis in back, cataracts History of Any Multi-Drug Resistant Organisms: MRSA Date of last positivie culture/infection: 01/23/23 MDRO Source:: Back Past Surgical History: Heart Catheterization, Hernia Repair, Tonsillectomy Additional Past Surgical History / Comment(s): colonoscopy, iban cataracts, wisdom teeth Past Anesthesia/Blood Transfusion Reactions: No Reported Reaction Past Psychological History: No Psychological Hx Reported Smoking Status: Light tobacco smoker Past Alcohol Use History: Occasional Additional Past Alcohol Use History / Comment(s): . Past Drug Use History: None Reported - Past Family History Father Family Medical History: Cancer Additional Family Medical History / Comment(s): ca of lymph nodes Medications and Allergies Home Medications Medication Instructions Recorded Confirmed Type Latanoprost Ophth [Xalatan 0.005%] 1 drop BOTH EYES HS@199901/02/17 07/03/23 History Thiamine [Vitamin B-1] 100 mg PO DAILY #30 tab 11/27/21 07/03/23 Rx lisinopriL [Zestril] 5 mg PO DAILY #30 tab 11/27/21 07/03/23 Rx Apixaban [Eliquis] 2.5 mg PO BID 08/29/22 07/03/23 History Famotidine [Pepcid] 20 mg PO DAILY 08/29/22 07/03/23 History Albuterol Inhaler [Ventolin Hfa 2 puff INHALATION RT-Q6H PRN 10/27/22 07/03/23 History Inhaler] Metoprolol Tartrate [Lopressor] 25 mg PO BID tab 10/30/22 07/03/23 Rx Atorvastatin [Lipitor] 20 mg PO HS@2000 01/21/23 07/03/23 History Magnesium Hydroxide [Milk of 2,400 mg PO DAILY PRN 01/21/23 07/03/23 History Magnesia] Lansoprazole [Prevacid] 15 mg PO DAILY 07/03/23 07/03/23 History Sennosides [Senokot] 8.6 mg PO DAILY PRN 07/03/23 07/03/23 History Allergies Allergy/AdvReac Type Severity Reaction Status Date / Time No Known Allergies Allergy Verified 07/03/23 22:16 Physical Examination This is a pleasant 88-year-old male in no acute distress. He is alert and oriented x 3. Exam of the head neck revealed no obvious deformity. He has full cervical spine motion without difficulty or pain. Exam of the upper extremities reveals no obvious deformity. He is able to move the shoulders, elbows, wrists and fingers fairly well without difficulty or pain. Neurovascular status to the upper extremities is intact. Exam of the lower extremities reveals slight external rotation to the left leg. Any movement to the left leg causes severe pain in the left hip. He has full foot and ankle motion bilaterally. Neurovascular status to the lower extremities is intact. Results X-rays of the left hip and pelvis reveal a displaced femoral neck fracture. No other bony abnormalities or fractures noted. - Labs Labs: Abnormal Lab Results - Last 24 Hours (Table) 07/03/23 07/03/23 Range/Units 20:31 20:31 RBC 3.86 L (4.30-5.90) m/uL Hgb 10.7 L (13.0-17.5) gm/dL Hct 33.4 L (39.0-53.0) % Sodium 136 L (137-145) mmol/L Glucose 124 H (74-99) mg/dL H & H 07/03/23 Range/Units 20:31 Hgb 10.7 L (13.0-17.5) gm/dL Hct 33.4 L (39.0-53.0) % Coagulation 07/03/23 Range/Units 20:31 INR 1.1 (<1.2) Result Diagrams: 07/03/23 20:31 07/03/23 20:31 Assessment and Plan (1) Fracture of femoral neck, left Current Visit: Yes Status: Acute Code(s): S72.002A - FRACTURE OF UNSP PART OF NECK OF LEFT FEMUR, INIT SNOMED Code(s): 2952192 (2) Fall from standing Current Visit: Yes Status: Acute Code(s): W19.XXXA - UNSPECIFIED FALL, INITIAL ENCOUNTER SNOMED Code(s): 6217490 Plan: The clinical and x-ray findings are discussed with the patient and with his over the phone. It is recommended he be taken to surgery for hemiarthroplasty of the left hip. The procedure was discussed in detail including the possible risks and outcomes. We are awaiting evaluation with internal medicine and car diology. We are planning surgery tomorrow for hemiarthroplasty. He will likely be able to transfer back to his extended care facility Saturday.
--- NOTE | 2023-07-04 12:19 | P.CRDCN ---
History of Present Illness Consult date: 07/04/23 History of present illness: HISTORY OF PRESENTING ILLNESS Patient is a 88-year-old with past medical history of nonobstructive CAD, mild cardiomyopathy, EF 45 to 50%, hypertension dyslipidemia, previous tobacco smoker. He also has history of paroxysmal atrial fibrillation and left bundle branch block. His last ECG from 2014 documented in the system also showed left bundle branch block. Patient is a resident of [facility]. At the facility patient tripped over his wheelchair and had a mechanical fall. He never lost consciousness. He denied having any chest pain chest pressure palpitations lightheadedness or dizziness before the event. He explained significant pain in his left hip after the fall and therefore he presented to the ER where it was confirmed that he had a hip fracture. He has been evaluated by orthopedic team for possible surgery tomorrow. Cardiology was consulted for perioperative cardiac risk assessment. Patient's last echocardiogram from January 2022 showed an EF of 45 to 50%, mild MR, mild TR, Labs Hb 10.7, platelets 2211, sodium 136, potassium 4, creatinine 1.2, ECG shows sinus rhythm with left bundle branch block REVIEW OF SYSTEMS 14 point review of system is negative except what is mentioned above in HPI. PHYSICAL EXAMINATION Vital signs reviewed. Head: Normocephalic. Eyes: Sclerae nonicteric. Neck: Brisk carotid upstroke, no jugular venous distention. Lungs: Clear to auscultation. Heart: Regular rate and rhythm, S1-S2, no S3, systolic murmur 2/6 Abdomen: Soft nontender, positive bowel sounds. Extremities: No edema, intact distal pulses. Left foot is painful on passive motion. Neuro: Alert, oritented, no focal deficits. Detailed neuro exam was not performed. ASSESSMENT Perioperative cardiac risk assessment for a left hip surgery S/p mechanical fall and left femur fracture Paroxysmal atrial fibrillation, currently NSR Mild cardiomyopathy EF 45 to 50%, currently euvolemic Left bundle branch block Mild CAD Hypertension, controlled Dyslipidemia PLAN Agree with holding Eliquis. Resume after surgery whenever okay by orthopedic team. Continue metoprolol tartrate 25 mg twice daily in perioperative.. Continue lisinopril, 20 mg atorvastatin. Obtain updated echo Patient is cleared to undergo orthopedic surgery tomorrow from cardiovascular standpoint. He does not have any concerning arrhythmias or congestive heart failure at this time. There is no concern of acute cardiac ischemia at this time. Due to his age and nonmodifiable risk factors he is at moderate to high risk for a moderate risk procedure. Further testing and interventions will not change these risk factors. Kp Abdalla MD, FACC, RPVI Thank you for allowing [facility] to participate in this patient's care. Feel free to reach out in case of any followup questions. Past Medical History Past Medical History: Coronary Artery Disease (CAD), Hyperlipidemia, Hypert ension Additional Past Medical History / Comment(s): arthritis in back, cataracts History of Any Multi-Drug Resistant Organisms: MRSA Date of last positivie culture/infection: 01/23/23 MDRO Source:: Back Past Surgical History: Heart Catheterization, Hernia Repair, Tonsillectomy Additional Past Surgical History / Comment(s): colonoscopy, iban cataracts, wisdom teeth Past Anesthesia/Blood Transfusion Reactions: No Reported Reaction Past Psychological History: No Psychological Hx Reported Smoking Status: Light tobacco smoker Past Alcohol Use History: Occasional Additional Past Alcohol Use History / Comment(s): . Past Drug Use History: None Reported - Past Family History Father Family Medical History: Cancer Additional Family Medical History / Comment(s): ca of lymph nodes Medications and Allergies Home Medications Medication Instructions Recorded Confirmed Type Latanoprost Ophth [Xalatan 0.005%] 1 drop BOTH EYES HS@199901/02/17 07/03/23 History Thiamine [Vitamin B-1] 100 mg PO DAILY #30 tab 11/27/21 07/03/23 Rx lisinopriL [Zestril] 5 mg PO DAILY #30 tab 11/27/21 07/03/23 Rx Apixaban [Eliquis] 2.5 mg PO BID 08/29/22 07/03/23 History Famotidine [Pepcid] 20 mg PO DAILY 08/29/22 07/03/23 History Albuterol Inhaler [Ventolin Hfa 2 puff INHALATION RT-Q6H PRN 10/27/22 07/03/23 History Inhaler] Metoprolol Tartrate [Lopressor] 25 mg PO BID tab 10/30/22 07/03/23 Rx Atorvastatin [Lipitor] 20 mg PO HS@199901/21/23 07/03/23 History Magnesium Hydroxide [Milk of 2,400 mg PO DAILY PRN 01/21/23 07/03/23 History Magnesia] Lansoprazole [Prevacid] 15 mg PO DAILY 07/03/23 07/03/23 History Sennosides [Senokot] 8.6 mg PO DAILY PRN 07/03/23 07/03/23 History Allergies Allergy/AdvReac Type Severity Reaction Status Date / Time No Known Allergies Allergy Verified 07/03/23 22:16 Physical Exam Vitals: Vital Signs Temp Pulse Pulse Resp BP BP Pulse Ox 07/04/23 08:00 98.3 F 67 18 83/49 95 07/04/23 07:42 94 L 07/04/23 01:10 97.7 F 73 18 127/66 99 07/04/23 00:20 92 L 07/04/23 00:15 97.7 F 71 22 158/72 87 L 07/03/23 23:01 68 18 139/80 93 L 07/03/23 22:29 68 16 156/70 92 L 07/03/23 21:48 70 18 165/78 94 L 07/03/23 19:41 97.1 F L 68 18 170/72 96 Intake and Output 07/03/23 07/04/23 07/04/23 22:59 06:59 14:59 Output Total 200 Balance -200 Output: Urine 200 Other: Voiding Method Indwelling Catheter Weight 66.678 kg 66.678 kg Results 07/03/23 20:31 07/03/23 20:31 Cardiac Enzymes 07/03/23 Range/Units 20:31 AST 21 (17-59) U/L Coagulation 07/03/23 Range/Units 20:31 PT 11.8 (10.0-12.5) sec APTT 28.5 (22.0-30.0) sec CBC 07/03/23 Range/Units 20:31 WBC 7.6 (3.8-10.6) k/uL RBC 3.86 L (4.30-5.90) m/uL Hgb 10.7 L (13.0-17.5) gm/dL Hct 33.4 L (39.0-53.0) % Plt Count 211 (150-450) k/uL Comprehensive Metabolic Panel 07/03/23 Range/Units 20:31 Sodium 136 L (137-145) mmol/L Potassium 4.0 (3.5-5.1) mmol/L Chloride 102 (98-107) mmol/L Carbon Dioxide 25 (22-30) mmol/L BUN 20 (9-20) mg/dL Creatinine 1.23 (0.66-1.25) mg/dL Glucose 124 H (74-99) mg/dL Calcium 8.7 (8.4-10.2) mg/dL AST 21 (17-59) U/L ALT 13 (4-49) U/L Alkaline Phosphatase 97 (38-126) U/L Total Protein 6.6 (6.3-8.2) g/dL Albumin 3.7 (3.5-5.0) g/dL Current Medications Generic Name Dose Route Start Last Admin Trade Name Freq PRN Reason Stop Dose Admin Acetaminophen 650 mg 07/03/23 22:03 Acetaminophen Tab 325 Mg Tab PO Q6HR PRN Mild Pain or Fever > 100.5 Hydrocodone Bitart/Acetaminophen 1 each 07/03/23 22:03 Hydrocodone/Apap 5-325mg 1 Each Tab PO Q4HR PRN Moderate Pain (Scale 4 to 6) Albuterol Sulfate 2.5 mg 07/03/23 23:18 Albuterol Nebulized 2.5 Mg/3 Ml INHALATION RT-Q6H PRN Shortness Of Breath Atorvastatin Calcium 20 mg 07/04/23 21:00 Atorvastatin 20 Mg Tab PO HS [facility] Famotidine 20 mg 07/04/23 09:00 07/04/23 08:02 Famotidine 20 Mg Tab PO Not Given DAILY [facility] Latanoprost 1 drops 07/04/23 21:00 Latanoprost 0.005% Ophth Drops 2.5 Ml Btl BOTH EYES HS [facility] Lisinopril 5 mg 07/04/23 09:00 07/04/23 08:02 Lisinopril 5 Mg Tab PO Not Given DAILY [facility] Magnesium Hydroxide 2,400 mg 07/03/23 23:18 Magnesium Hydroxide 2,400 Mg/30 Ml Cup PO DAILY PRN Constipation Metoprolol Tartrate 25 mg 07/04/23 09:00 07/04/23 08:02 Metoprolol Tartrate 25 Mg Tab PO Not Given BID [facility] Morphine Sulfate 4 mg 07/03/23 22:03 07/04/23 12:06 Morphine Sulfate 4 Mg/Ml Syringe IV 4 mg Q4HR PRN Administration Severe Pain (Scale 7 to 10) Naloxone HCl 0.2 mg 07/03/23 22:03 Naloxone 0.4 Mg/Ml 1 Ml Vial IV Q2M PRN Opioid Reversal Ondansetron HCl 4 mg 07/03/23 22:03 Ondansetron 4 Mg/2 Ml Vial IVP Q8HR PRN Nausea And Vomiting Pantoprazole Sodium 40 mg 07/03/23 22:15 07/04/23 08:26 Pantoprazole 40 Mg/10 Ml Vial IV 40 mg DAILY [facility] Administration Senna 8.6 mg 07/03/23 23:18 Sennosides 8.6 Mg Tab PO DAILY PRN Constipation Thiamine HCl 100 mg 07/04/23 09:00 07/04/23 08:02 Thiamine 100 Mg Tab PO Not Given DAILY [facility] Intake and Output 07/03/23 07/04/23 07/04/23 22:59 06:59 14:59 Output Total 200 Balance -200 Output: Urine 200 Other: Voiding Method Indwelling Catheter Weight 66.678 kg 66.678 kg 07/03/23 20:31 07/03/23 20:31
--- NOTE | 2023-07-04 13:38 | P.CONS ---
History of Present Illness - Reason for Consult Consult date: 07/04/23 - Chief Complaint Preoperative clearance, medical management - History of Present Illness 88-year-old male with medical history of CAD, hypertension, hyperlipidemia, recent admission and discharge for back infection after which she went to an extended care facility for antibiotics, presented for mechanical fall resulting in left hip fracture. Medicine was consulted for medical management as well as preoperative clearance. Patient's METs estimation is less than 4. [facility] and mostly wheelchair dependent for the last several months. He does presently deny any chest pain, dyspnea, fevers, chills. He has significant pain in the left hip as well as the bottom of his feet. Patient denies fevers, chills, nausea, vomiting, chest pain, palpitations, syncope, presyncope. Patient relates to me that he was in his wheelchair when he tried to get up but did not lock his wheelchair and fell. He felt immediate pain in his left hip. Today, patient is afebrile, 127/66, heart rate 73, 99% on 2 L of nasal cannula. CBC shows hemoglobin of 10.7. Basic metabolic panel shows sodium of 136, BUN of 20, creatinine of 1.23. Liver function tests are unremarkable. Coags are unremarkable. EKG demonstrates normal sinus rhythm with PACs, left bundle branch block. Chest x-ray, personally interpreted, demonstrates findings of hyperinflation, prominent pulmonary vasculature with nodular opacities in the right middle lobe, left upper lobe. All Systems reviewed and pertinent positives and negatives noted in HPI, all other symptoms are negative Gen: in no apparent distress, resting comfortably in bed Eyes: PERRL, no scleral injection or icterus HENT: normocephalic, atraumatic, good hearing acuity, moist mucous membranes Neck: no tracheal deviation, full range of motion Resp: good air exchange, breathing comfortably with no accessory muscle use, no tactile fremitus CVS: good distal perfusion x 4, no pitting edema GI: soft, NTTP, ND, no hepatosplenomegaly : no suprapubic tenderness, no CVAT, gilmore catheter not present MSK: no clubbing, no cyanosis, no noted contractures of extremities Skin: no noted rashes, petechiae; temperature of skin is appropriate Neuro: moving all extremities without signs of weakness, CN II-XII intact Psych: cooperative, euthymic mood, insight and judgment intact Labs and imaging as above Assessment/plan: Mechanical fall resulting in left hip fracture Preoperative clearance -Patient is a high risk given low METS, but does not appear to be in acute congestive heart failure, nor have unstable anginal symptoms, therefore he may proceed to surgery without further need of testing as he does not have any perioperative modifiable risk factors Pulmonary hypertension, class III 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 Bilateral lower extremity edema -CT chest with angiography to rule out pulmonary embolism, characterize pulmonary nodules -Continue albuterol as needed -No indication for steroids at this time Hypertension Hyperlipidemia CAD Paroxysmal atrial fibrillation, rate controlled -Continue atorvastatin, metoprolol, lisinopril -Hold aspirin at this time in anticipation of surgery -Hold apixaban Patient is full code Past Medical History Past Medical History: Coronary Artery Disease (CAD), Hyperlipidemia, Hypertension Additional Past Medical History / Comment(s): arthritis in back, cataracts History of Any Multi-Drug Resistant Organisms: MRSA Year Discovered:: 01/23/23 MDRO Source:: Back Past Surgical History: Heart Catheterization, Hernia Repair, Tonsillectomy Additional Past Surgical History / Comment(s): colonoscopy, iban cataracts, wisdom teeth Past Anesthesia/Blood Transfusion Reactions: No Reported Reaction Past Psychological History: No Psychological Hx Reported Smoking Status: Light tobacco smoker Past Alcohol Use History: Occasional Additional Past Alcohol Use History / Comment(s): . Past Drug Use History: None Reported - Past Family History Father Family Medical History: Cancer Additional Family Medical History / Comment(s): ca of lymph nodes Medications and Allergies Home Medications Medication Instructions Recorded Confirmed Type Latanoprost Ophth [Xalatan 0.005%] 1 drop BOTH EYES HS@199901/02/17 07/03/23 History Thiamine [Vitamin B-1] 100 mg PO DAILY #30 tab 11/27/21 07/03/23 Rx lisinopriL [Zestril] 5 mg PO DAILY #30 tab 11/27/21 07/03/23 Rx Apixaban [Eliquis] 2.5 mg PO BID 08/29/22 07/03/23 History Famotidine [Pepcid] 20 mg PO DAILY 08/29/22 07/03/23 History Albuterol Inhaler [Ventolin Hfa 2 puff INHALATION RT-Q6H PRN 10/27/22 07/03/23 History Inhaler] Metoprolol Tartrate [Lopressor] 25 mg PO BID tab 10/30/22 07/03/23 Rx Atorvastatin [Lipitor] 20 mg PO HS@2000 01/21/23 07/03/23 History Magnesium Hydroxide [Milk of 2,400 mg PO DAILY PRN 01/21/23 07/03/23 History Magnesia] Lansoprazole [Prevacid] 15 mg PO DAILY 07/03/23 07/03/23 History Sennosides [Senokot] 8.6 mg PO DAILY PRN 07/03/23 07/03/23 History Allergies Allergy/AdvReac Type Severity Reaction Status Date / Time No Known Allergies Allergy Verified 07/03/23 22:16 Physical Exam Osteopathic Statement: *. No significant issues noted on an osteopathic structural exam other than those noted in the History and Physical/Consult. Vitals: Vital Signs Temp Pulse Pulse Resp BP BP Pulse Ox 07/04/23 08:00 98.3 F 67 18 83/49 95 07/04/23 07:42 94 L 07/04/23 01:10 97.7 F 73 18 127/66 99 07/04/23 00:20 92 L 07/04/23 00:15 97.7 F 71 22 158/72 87 L 07/03/23 23:01 68 18 139/80 93 L 07/03/23 22:29 68 16 156/70 92 L 07/03/23 21:48 70 18 165/78 94 L 07/03/23 19:41 97.1 F L 68 18 170/72 96 Intake and Output 07/03/23 07/04/23 07/04/23 22:59 06:59 14:59 Output Total 200 Balance -200 Output: Urine 200 Other: Voiding Method Indwelling Catheter Weight 66.678 kg 66.678 kg Results CBC & Chem 7: 07/03/23 20:31 07/03/23 20:31 Labs: Abnormal Lab Results - Last 24 Hours (Table) 07/03/23 07/03/23 Range/Units 20:31 20:31 RBC 3.86 L (4.30-5.90) m/uL Hgb 10.7 L (13.0-17.5) gm/dL Hct 33.4 L (39.0-53.0) % Sodium 136 L (137-145) mmol/L Glucose 124 H (74-99) mg/dL
--- NOTE | 2023-07-04 16:11 | CT ---
EXAMINATION TYPE: CT angio chest CT DLP: 373.4 mGycm, Automated exposure control for dose reduction was used. DATE OF EXAM: 07/04/2023 3:57 PM COMPARISON: Chest radiograph from same day. 01/21/2023, 10/26/2022 CLINICAL INDICATION:Male, 88 years old with history of bilateral leg edema, pulm nodules, pHTN, r/o P E; SOB. r/o PE. pt unable to control breathing TECHNIQUE/CONTRAST: CTA scan of the thorax is performed with IV Contrast, patient injected with 80 ml mL of Isovue 370, M IP images are created and reviewed these are created on a separate workstation.. FINDINGS: Pulmonary Artery: There is no evidence for a filling defect within the pulmonary vasculature to sugge st acute pulmonary embolism. Mild dilation of the pulmonary trunk measuring up to 33 mm. Lungs/Pleura: No evidence of focal consolidation, pleural effusion or pneumothorax is moderate to sev ere emphysema changes seen throughout the lungs.. Airway: Large airways are patent. Heart: Heart is within normal limits for size. Vasculature: Moderate atherosclerotic calcifications are present throughout the aorta and its branche s. Atherosclerosis of the coronary arteries is moderate to severe. Mediastinum: No gross evidence of adenopathy. Musculoskeletal: No acute osseous abnormalities, remote injuries to the left posterior ribs as seen o n prior of rib 10 through 11 with callus formation. Soft Tissues: Unremarkable. Lower neck: No significant findings. Upper Abdomen: No significant findings. IMPRESSION: 1. No evidence of pulmonary embolism. 2. No Evidence for pulmonary hypertension. 3. Severe atherosclerotic disease of the aorta. 4. Mild cardiomegaly. 5. Severe coronary artery atherosclerosis.
[2023-07-04] MEDS: ATORVASTATIN 20 MG TAB PO SCH (21:30)
[2023-07-04] MEDS: LATANOPROST 0.005% OPHTH DROPS 2.5 ML BTL BOTH EYES SCH (22:21)
[2023-07-05] MEDS: HYDROcodone/APAP 5-325MG 1 EACH TAB PO PRN (06:19)
[2023-07-05 08:11] LABS: African American GFR (CKD) 38 (>60 ml/min/1.73 sqM); Anion Gap 5 mmol/L; Blood Urea Nitrogen 32 mg/dL (9-20); Calcium 8.8 mg/dL (8.4-10.2); Carbon Dioxide 27 mmol/L (22-30); Chloride 100 mmol/L (98-107); Glucose 102 mg/dL (74-99); Magnesium 1.6 mg/dL (1.6-2.3); Non-African American GFR(CKD) 33 (>60 ml/min/1.73 sqM); Potassium 4.2 mmol/L (3.5-5.1); Sodium 132 mmol/L (137-145)
[2023-07-05 08:42] LABS: HCT 31.7 % (39.0-53.0); HGB 10.2 gm/dL (13.0-17.5); MCHC 32.2 g/dL (31.0-37.0); MCV 86.9 fL (80.0-100.0); Mean Platelet Volume 8.3; Platelet Count 182 k/uL (150-450); RBC 3.65 m/uL (4.30-5.90); RDW 14.5 % (11.5-15.5); WBC 8.3 k/uL (3.8-10.6)
[2023-07-05 10:33] LABS: Eosinophils # (M) 0.42 k/uL (0-0.7); Lymphocytes # (M) 0.91 k/uL (1.0-4.8); Monocytes # (M) 1.16 k/uL (0-1.0); Neutrophils # (M) 5.81 k/uL (1.3-7.7); Neutrophils % (M) 70 %; Nucleated Red Blood Cells 0 /100 WBC (0-0); Total Cells Counted 100
[2023-07-05 10:34] LABS: RBC Morphology Normal
[2023-07-05] MEDS: ONDANSETRON 4 MG/2 ML VIAL IVP ONE (10:50)
[2023-07-05] MEDS: DEXAMETHASONE SOD PHOSPHATE 4 MG/ML 1 ML VIAL IVP ONE (10:51)
[2023-07-05] MEDS: fentaNYL (PF) 50 MCG/1 ML VIAL IVP ONE ×2 (10:52→11:08)
[2023-07-05] MEDS: LACTATED RINGERS 1,000 ML IV ONE ×2 (10:58→12:12)
[2023-07-05] MEDS: MIDAZOLAM 2 MG/2 ML VIAL IVP ONE (10:59)
[2023-07-05] MEDS ORDERED: GLYCOPYRROLATE 0.2 MG/ML 2 ML VIAL ONE (11:09)
[2023-07-05] MEDS ORDERED: ceFAZolin 1 GM/50 ML BAG (PMX) ONE (11:09)
[2023-07-05] MEDS ORDERED: ROCURONIUM 10 MG/ML (5 ML VIAL) IV ONE (11:09)
[2023-07-05] MEDS ORDERED: NEOSTIGMINE 1 MG/ML 10 ML VIAL ONE (11:09)
[2023-07-05] MEDS ORDERED: LIDOCAINE 1% INJ 10MG/ML (20 ML MDV) ONE (11:09)
[2023-07-05] MEDS ORDERED: TRANEXAMIC 1,000 MG/100ML-NACL PREMIX BAG ONE (11:09)
[2023-07-05] MEDS ORDERED: PHENYLEPHRINE-0.9% NACL SYG 1,000 MCG/10 ML SYRINGE ONE (11:09)
[2023-07-05] MEDS ORDERED: fentaNYL (PF) 50 MCG/ML 2 ML AMP ONE (11:09)
[2023-07-05] MEDS ORDERED: SUCCINYLCHOLINE CHLORIDE 200 MG/10 ML VIAL IV ONE (11:09)
[2023-07-05] MEDS ORDERED: PROPOFOL 10 MG/ML 20 ML VIAL IV ONE (11:09)
[2023-07-05] MEDS: SODIUM CHLORIDE 0.9% 50 ML with ceFAZolin 2,000 MG IV ONE (11:13)
--- NOTE | 2023-07-05 12:29 | P.OP ---
Date of Procedure: 07/05/23 Procedure(s) Performed: PREOPERATIVE DIAGNOSIS: Left hip femoral neck fracture POSTOPERATIVE DIAGNOSIS: Left hip femoral neck fracture OPERATION: Left hip cemented unipolar hemiarthroplasty. ANESTHESIA: Spinal ESTIMATED BLOOD LOSS: 75 ml. LEAD MACHINIST: Paige Nunez PA-C (assistance with: patient positioning, retraction, exposure, hemostasis, leg positioning, implantation, irrigation, closure, dressing) COMPLICATIONS: None apparent. COMPONENTS IMPLANTED: Kinsey LDFx cemented femoral stem; unipolar femoral head; neck extension augments as needed. INDICATIONS: Warner is a 88-year-old male with a history of falling and sustaining a left femoral neck fracture. I have recommended surgical treatment with a left hip cemented unipolar hemiarthroplasty. I have discussed this procedure in detail and explained the potential risks and complications as being inclusive of, but not limited to: Bleeding, infection, scarring, discomfort, blood vessel and/or nerve damage, limb length inequality, gait disturbance, blood clot, pulmonary embolism, , and other risks. The consent form has been signed. PROCEDURE: After appropriate consent was obtained, the patient was taken to the operating room and placed in supine position. General anesthetic was administered and after confirmation of adequate anesthesia, the patient was placed into the lateral decubitus position with the affected side up. Care was taken to make sure that all pressure points were adequately padded and a [place] hip positioner was utilized for positioning. The hip was prepped and draped in the usual aseptic fashion using a combination of Chloraprep and alcohol. [place] drape was used for the case and the patient received intravenous antibiotics prior to the incision. The incision was created directly over the greater trochanter and carried slightly posteriorly for a posterior approach to the left hip. The incision was then deepened down to subcutaneous tissue and fascia amanda. Fascia amanda was split in line with the incision and split proximally along the fibers of the gluteus rachel. The underlying fibers of the muscle were teased apart using finger dissection and bleeding vessels were picked up and coagulated. Retractor was then placed posteriorly consisting of a blunt Reynaldo. The short external rotators and capsule were exposed and good visualization of the attachment of the external rotators to the femur was established. The short external rotators and capsule were released using electrocautery from their femoral attachments. A hockey stick shaped incision was created in the capsule. Joint fluid and hemarthrosis was evacuated and the patient's hip was internally rotated to expose the fracture site. The femoral neck cut was created approximately 1 cm superior to the lesser trochanter using a reciprocating saw. The femoral head and neck fragment was removed and visualization and palpation of the acetabular vault showed intact hyaline cartilage with no bone exposure or significant degeneration. Attention was then directed back to the proximal femur. Retractors were placed around the proximal femur and box osteotome was used followed by canal finder and trochanteric reamer. Cylindrical reaming was performed. Progressive broaching was then performed starting with a #10 broach and progressing final size, in a position of 10-15 degrees anteversion. [place] anteversion was within 5 degrees of stem position. The final size broach had excellent fit and fill of the patient's metaphysis and diaphysis. Calcar planing was performed. Trial reduction was then performed starting with appropriately sized femoral head and various neck extensions to evaluate stability, limb length equality, and soft tissue tension. Once these parameters were satisfactory, the corresponding final components were then called for. Trial components were removed. The femoral canal was sized for the centralizer a nd cement plug. Once the cement plug had been inserted distal to the planned length of the femoral component, the canal was pulse lavaged and brushed to remove any unstable bone. It was then dried with a lap sponge. Cement was mixed under vacuum conditions to decrease porosity and inserted into a cement gun. Distal centralizer was placed onto the femoral component with a bit of cement. The cement was allowed to reach a slightly doughy consistency and then the canal was filled retrograde with the cement gun. Thumb pressurization was performed three times. The femoral component was then inserted with the previously determined degree of anteversion. Excess cement was removed before it hardened completely. The femoral head was then impacted onto the Maldonado taper. Blood and debris were removed from the acetabular socket and the hip was then reduced and checked for stability, limb length and soft tissue tension. These parameters were found to be satisfactory; the wound was then thoroughly irrigated with normal saline. Final hemostasis was obtained using electrocautery and application of topical thrombin. Closure of the capsule was performed meticulously using #3 Vicryl suture. Four [id number] sutures were placed in the posterior capsule along with repair of the external rotators. The fascia amanda was then repaired using combination of #3 Vicryl suture in interrupted fashion and Quill and running fashion. 2-0 Vicryl suture was used for the subcutaneous tissues and 3-0 Quill for the skin. Dermabond or Steri-Strips were then applied. The patient tolerated the procedure well. There were no complications and the wound bed was dry and there was no need for drain placement. Sterile dressing was then applied and the patient was carefully removed from the operating room table, placed on the stretcher, had an abduction pillow applied and was taken to the recovery room in stable condition. Sponge and needle counts were correct.
[2023-07-05] MEDS ORDERED: hydrOXYzine pamoate 25 MG CAP PO PRN (12:51)
[2023-07-05] MEDS ORDERED: NALOXONE 0.4 MG/ML 1 ML VIAL IV PRN (12:51)
[2023-07-05] MEDS ORDERED: HYDROmorphone 0.5 MG/0.5 ML SYRINGE IVP PRN ×2 (12:51)
[2023-07-05] MEDS ORDERED: HYDROcodone/APAP 5-325MG 1 EACH TAB PO PRN (12:51)
--- NOTE | 2023-07-05 13:59 | XR ---
EXAMINATION TYPE: XR Hip Limited LT DATE OF EXAM: 07/05/2023 1:16 PM CLINICAL INDICATION:Male, 88 years old with history of Status post hip surgery, assess surgical align ment; COMPARISON: None. TECHNIQUE: XR Hip Limited LT; hip was examined in the frontal projections FINDINGS: Post arthroplasty changes, hardware is intact, alignment is appropriate. No evidence of fra cture. Postoperative changes of the soft tissues with subcutaneous gas. No evidence of any acute osse ous pathology or joint dislocation. IMPRESSION: Hip arthroplasty with hardware intact and in appropriate alignment. No acute fracture.
--- NOTE | 2023-07-05 14:45 | P.PN ---
Subjective Progress Note Date: 07/05/23 No new complaints today, s/p Operative repair. Gen: in no apparent distress, resting comfortably in bed Eyes: PERRL, no scleral injection or icterus HENT: normocephalic, atraumatic, good hearing acuity, moist mucous membranes Neck: no tracheal deviation, full range of motion Resp: good air exchange, breathing comfortably with no accessory muscle use, no tactile fremitus CVS: good distal perfusion x 4, no pitting edema GI: soft, NTTP, ND, no hepatosplenomegaly : no suprapubic tenderness, no CVAT, gilmore catheter not present MSK: no clubbing, no cyanosis, no noted contractures of extremities Skin: no noted rashes, petechiae; temperature of skin is appropriate Neuro: moving all extremities without signs of weakness, CN II-XII intact Psych: cooperative, euthymic mood, insight and judgment intact Hospital Course: 88-year-old male with medical history of CAD, hypertension, hyperlipidemia, rece nt admission and discharge for back infection after which she went to an extended care facility for antibiotics, presented for mechanical fall resulting in left hip fracture. Medicine was consulted for medical management as well as preoperative clearance. Today, patient is afebrile, 127/66, heart rate 73, 99% on 2 L of nasal cannula. CBC shows hemoglobin of 10.7. Basic metabolic panel shows sodium of 136, BUN of 20, creatinine of 1.23. Liver function tests are unremarkable. Coags are unremarkable. EKG demonstrates normal sinus rhythm with PACs, left bundle branch block. Chest x-ray, personally interpreted, demonstrates findings of hyperinflation, prominent pulmonary vasculature with nodular opacities in the right middle lobe, left upper lobe. 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 Bilateral lower extremity edema -CT chest with angiography to rule out pulmonary embolism, characterize pulmonary nodules, results apprecaited - no evidence of pulmonary hypertension -Continue albuterol as needed -No indication for steroids at this time Hypertension Hyperlipidemia CAD Paroxysmal atrial fibrillation, rate controlled -Continue atorvastatin, metoprolol, lisinopril -Hold aspirin at this time in anticipation of surgery -Hold apixaban Patient is full code Objective - Vital Signs Vital signs: Vital Signs Temp 98.3 F 07/05/23 14:23 Pulse 67 07/05/23 14:23 Resp 17 07/05/23 14:23 BP 105/61 07/05/23 14:23 Pulse Ox 92 L 07/05/23 14:23 FiO2 Intake & Output 07/04/23 07/05/23 07/05/23 18:59 06:59 18:59 Intake Total 0 1150 Output Total 300 500 325 Balance -300 -500 825 Intake: IV 1150 Oral 0 Output: Urine 300 500 250 Estimated Blood Loss 75 Other: Voiding Method Indwelling Catheter Indwelling Catheter Indwelling Catheter - Labs CBC & Chem 7: 07/05/23 06:59 07/05/23 06:59 Labs: Abnormal Lab Results - Last 24 Hours (Table) 07/05/23 07/05/23 Range/Units 06:59 06:59 RBC 3.65 L (4.30-5.90) m/uL Hgb 10.2 L (13.0-17.5) gm/dL Hct 31.7 L (39.0-53.0) % Lymphocytes # (Manual) 0.91 L (1.0-4.8) k/uL Monocytes # (Manual) 1.16 H (0-1.0) k/uL Sodium 132 L (137-145) mmol/L BUN 32 H (9-20) mg/dL Creatinine 1.80 H (0.66-1.25) mg/dL Glucose 102 H (74-99) mg/dL
[2023-07-05] MEDS: HYDROmorphone 0.5 MG/0.5 ML SYRINGE IVP PRN (18:31)
[2023-07-05] MEDS: SENNOSIDES-DOCUSATE SODIUM 1 EACH TAB PO SCH (20:31)
[2023-07-05 22:32] LABS: Appearance,Urine Clear (Clear); Bilirubin,Urine Negative (Negative); Blood,Urine Moderate (Negative); Color,Urine Yellow; Glucose,Urine (UA) Trace (Negative); Ketones,Urine Trace (Negative); Leukocyte Esterase,Urine Moderate (Negative); Mucus,Urine Rare /hpf; Nitrite,Urine Negative (Negative); PH, Urine 5.5 (5.0-8.0); Protein,Urine 1+ (Negative); RBC,Urine 38 /hpf (0-5); Specific Gravity,Urine 1.036 (1.001-1.035); Squamous Epithelial Cell,Urine <1 /hpf (0-4); Urobilinogen,Urine <2.0 mg/dL (<2.0); WBC,Urine 33 /hpf (0-5)
--- NOTE | 2023-07-05 22:51 | CA ---
Transthoracic Echo Report Name: Tank Williamson Age: 88 Gender: M : 1935 Exam Date: 07/04/2023 14:24 Exam Location: [facility] Ht (in): 71 Wt (lb): 147 Ordering Physician: Kp Abdalla MD ([email or web address]) Attending/Referring Phys: Perinatal Technician Annamarie Cartagena RCS Procedure CPT: Indications: LBBB, cardiomyopathy Cardiac Hx: Technical Quality: Technically difficult study Contrast 1: Total Dose (mL): Contrast 2: Total Dose (mL): MEASUREMENTS (Male / Female) Normal Values 2D ECHO LA Volume 46.2 cm??? 18 - 58 / 22 - 52 cm??? LA Volume Index 25.4 cm???/m??? 16 - 28 cm???/m??? DOPPLER AV Peak Velocity 83.7 cm/s AV Peak Gradient 2.8 mmHg AV Mean Velocity 68.2 cm/s AV Mean Gradient 1.9 mmHg AV Velocity Time Integral 16.7 cm LVOT Peak Velocity 86.6 cm/s LVOT Peak Gradient 3.0 mmHg LVOT Velocity Time Integral 15.6 cm Mitral E Point Velocity 56.6 cm/s Mitral A Point Velocity 121.0 cm/s Mitral E to A Ratio 0.5 MV Deceleration Time 120.5 ms MV E' Velocity 5.5 cm/s Mitral E to MV E' Ratio 10.3 FINDINGS Left Ventricle Left ventricular ejection fraction is estimated at 55-60 % by visual. Left ventricular cavity size normal by visual. Right Ventricle Right ventricle not well visualized. Unable to estimate right ventricular systolic function. Right Atrium Right atrium not well visualized. Left Atrium Left atrium not well visualized. Mitral Valve Mitral valve not well visualized. No mitral stenosis. No mitral regurgitation. Aortic Valve Aortic valve not well visualized. No aortic stenosis. No aortic regurgitation. Tricuspid Valve Tricuspid valve not well visualized. Pulmonic Valve Pulmonic valve not well visualized. Pericardium No pericardial effusion. Aorta Aortic root and proximal ascending aorta not well visualized. CONCLUSIONS Patient has broken hip and is unable to lay backwards at all without severe pain. Refused definity. Left ventricular ejection fraction is estimated at 55-60 % by visual. Right ventricle not well visualized. No significant valvular dysfunction No pericardial effusion. Previewed by: Dr Kp Abdalla (Electronically Signed) Final Date: 05 July 2023 22:50
[2023-07-06] MEDS: SODIUM CHLORIDE 0.9% 1,000 ML IV ONE (01:33)
[2023-07-06] MEDS: SODIUM CHLORIDE 0.9% 1,000 ML IV SCH (03:05)
--- NOTE | 2023-07-06 03:34 | CT ---
EXAM: CT Head Without Intravenous Contrast CLINICAL HISTORY: ITS.REASON CT Reason: ALTERED MENTAL STATUS, RECENT FALL TECHNIQUE: Axial computed tomography images of the head/brain without intravenous contrast. CTDI is 49.1 mGy and DLP is 1212.4 mGy-cm. This CT exam was performed using one or more of the following dose reduction techniques: automated exposure control, adjustment of the mA and/or kV according to patient size, and/or use of iterative reconstruction technique. COMPARISON: No relevant prior studies available. FINDINGS: No acute intracranial hemorrhage. No midline shift or mass effect. 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 Age-related cerebral volume loss. Periventricular and subcortical white matter hypoattenuation, consistent with chronic microangiopathy. Right eye scleral buckle. The calvarium is intact. The visualized paranasal sinuses and mastoid air cells are grossly clear. IMPRESSION: No acute intracranial hemorrhage, midline shift, or mass effect. 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
--- NOTE | 2023-07-06 11:14 | P.PN ---
Subjective Progress Note Date: 07/06/23 Principal diagnosis: Left hip fracture Patient is seen at bedside this morning. He is postop day #1 from left hip david arthroplasty. He has pain at the surgical site as expected but denies any new complaints. He denies numbness, tingling or calf pain. Review of systems is negative for fever, chills, chest pain, shortness of breath or other Objective - Vital Signs Vital signs: Vital Signs Temp 97.4 F L 07/06/23 07:25 Pulse 69 07/06/23 07:25 Resp 19 07/06/23 07:25 BP 112/65 07/06/23 07:25 Pulse Ox 91 L 07/06/23 07:25 FiO2 Intake & Output 07/05/23 07/06/23 07/06/23 18:59 06:59 18:59 Intake Total 1150 Output Total 325 Balance 825 Intake: IV 1150 Output: Urine 250 Estimated Blood Loss 75 Other: Voiding Method Indwelling Catheter Indwelling Catheter - Exam Inspection reveals a benign surgical wound. There is no active bleeding or drainage. Neurovascular status is intact throughout the lower extremity with motor and sensation fully intact. Calf is soft and nontender. 2+ dorsalis pedis pulse and less than 2 second cap refill is present. - Constitutional General appearance: Present: no acute distress - Labs CBC & Chem 7: 07/05/23 06:59 07/05/23 06:59 Labs: Abnormal Lab Results - Last 24 Hours (Table) 07/05/23 Range/Units 22:00 Ur Specific [place] 1.036 H (1.001-1.035) Urine Protein 1+ H (Negative) Urine Glucose (UA) Trace H (Negative) Urine Ketones Trace H (Negative) Urine Blood Moderate H (Negative) Ur Leukocyte Esterase Moderate H (Negative) Urine RBC 38 H (0-5) /hpf Urine WBC 33 H (0-5) /hpf Urine Mucus Rare H (None) /hpf Assessment and Plan (1) Hip fracture, left Narrative/Plan: He will continue with routine postop orthopedic protocol including pain management, wound care, PT, DVT prophylaxis and medical management. Expect that he will transfer to [facility] in next 1-2 days Current Visit: Yes Status: Acute Priority: Medium Code(s): S72.002A - FRACTURE OF UNSP PART OF NECK OF LEFT FEMUR, INIT SNOMED Code(s): 510100772 Time with Patient: Less than 30
--- NOTE | 2023-07-06 11:55 | P.PN ---
Subjective Progress Note Date: 07/06/23 No new complaints today, s/p Operative repair. Gen: in no apparent distress, resting comfortably in bed Eyes: PERRL, no scleral injection or icterus HENT: normocephalic, atraumatic, good hearing acuity, moist mucous membranes Neck: no tracheal deviation, full range of motion Resp: good air exchange, breathing comfortably with no accessory muscle use, no tactile fremitus CVS: good distal perfusion x 4, no pitting edema GI: soft, NTTP, ND, no hepatosplenomegaly : no suprapubic tenderness, no CVAT, gilmore catheter not present MSK: no clubbing, no cyanosis, no noted contractures of extremities Skin: no noted rashes, petechiae; temperature of skin is appropriate Neuro: moving all extremities without signs of weakness, CN II-XII intact Psych: cooperative, euthymic mood, insight and judgment intact Hospital Course: 88-year-old male with medical history of CAD, hypertension, hyperlipidemia, rece nt admission and discharge for back infection after which she went to an extended care facility for antibiotics, presented for mechanical fall resulting in left hip fracture. Medicine was consulted for medical management as well as preoperative clearance. Today, patient is afebrile, 127/66, heart rate 73, 99% on 2 L of nasal cannula. CBC shows hemoglobin of 10.7. Basic metabolic panel shows sodium of 136, BUN of 20, creatinine of 1.23. Liver function tests are unremarkable. Coags are unremarkable. EKG demonstrates normal sinus rhythm with PACs, left bundle branch block. Chest x-ray, personally interpreted, demonstrates findings of hyperinflation, prominent pulmonary vasculature with nodular opacities in the right middle lobe, left upper lobe. 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 Bilateral lower extremity edema Acute Hypoxemic Respiratory Failure -repeat CXR today given ongoing post-op hypoxia -Continue albuterol as needed -No indication for steroids at this time Hypertension Hyperlipidemia CAD Paroxysmal atrial fibrillation, rate controlled -Continue atorvastatin, metoprolol, lisinopril -Hold aspirin at this time in anticipation of surgery -Hold apixaban Patient is full code Objective - Vital Signs Vital signs: Vital Signs Temp 97.4 F L 07/06/23 07:25 Pulse 69 07/06/23 07:25 Resp 19 07/06/23 07:25 BP 112/65 07/06/23 07:25 Pulse Ox 91 L 07/06/23 07:25 FiO2 Intake & Output 07/05/23 07/06/23 07/06/23 18:59 06:59 18:59 Intake Total 1150 Output Total 325 Balance 825 Intake: IV 1150 Output: Urine 250 Estimated Blood Loss 75 Other: Voiding Method Indwelling Catheter Indwelling Catheter - Labs CBC & Chem 7: 07/05/23 06:59 07/05/23 06:59 Labs: Abnormal Lab Results - Last 24 Hours (Table) 07/05/23 Range/Units 22:00 Ur Specific [place] 1.036 H (1.001-1.035) Urine Protein 1+ H (Negative) Urine Glucose (UA) Trace H (Negative) Urine Ketones Trace H (Negative) Urine Blood Moderate H (Negative) Ur Leukocyte Esterase Moderate H (Negative) Urine RBC 38 H (0-5) /hpf Urine WBC 33 H (0-5) /hpf Urine Mucus Rare H (None) /hpf
--- NOTE | 2023-07-06 12:25 | XR ---
EXAMINATION TYPE: XR chest 1V portable DATE OF EXAM: 07/06/2023 COMPARISON: 07/03/2023 HISTORY: Fall TECHNIQUE: Single frontal view of the chest is obtained. FINDINGS: There is a bandlike dense opacity in the right lung base adjacent to the hemidiaphragm which was not present on the prior study and likely represents atelectasis. Small costophrenic angle effusion is no t excluded. There is no pneumothorax. The left lung is clear. The heart size is normal in the pulmonary vasculature is not congested. The osseous structures are intact. IMPRESSION: Mild right basilar atelectasis and possibly tiny effusion. No other significant adenopathy seen. IMPRESSION: No acute process.
[2023-07-06 13:42] LABS: HCT 23.5 % (39.6-50.0); HGB 7.4 g/dL (13.0-17.0); MCH 27.4 pg (27.0-32.0); MCHC 31.5 g/dL (32.0-37.0); Mean Platelet Volume 11.1 FL (9.5-12.2); NRBC Per 100 WBC 0 X 10*3/uL (0.00-0.01); Platelet Count 167 X 10*3/uL (140-440); RDW 14.6 % (11.5-14.5); WBC 11.62 X 10*3/uL (4.50-10.00)
[2023-07-06 14:04] LABS: BUN/Creat Ratio 19.13 Ratio (12.00-20.00); Calcium 8.3 mg/dL (8.7-10.3); Carbon Dioxide 23.2 mmol/L (21.6-31.8); Chloride 97 mmol/L (96-109); Glucose 130 mg/dL (70-110); Magnesium 1.7 mg/dL (1.5-2.4); Potassium 4.7 mmol/L (3.5-5.5); Sodium 133 mmol/L (135-145)
[2023-07-06 15:20] LABS: Basophils # (A) 0.01 X 10*3/uL (0.00-0.10); Basophils % (A) 0.1 %; Eosinophils # (A) 0 X 10*3/uL (0.04-0.35); Eosinophils % (A) 0 %; Lymphocytes # (A) 0.81 X 10*3/uL (0.90-5.00); Monocytes # (A) 1.56 X 10*3/uL (0.20-1.00); Monocytes % (A) 13.4 %; Neutrophils % (A) 79.2 %
[2023-07-06 15:21] LABS: RBC Morphology Normal (Normal)
[2023-07-07 06:35] LABS: HCT 30.5 % (39.0-53.0); HGB 9.6 gm/dL (13.0-17.5); MCHC 31.7 g/dL (31.0-37.0); MCV 88.6 fL (80.0-100.0); Mean Platelet Volume 8.6; RBC 3.44 m/uL (4.30-5.90); RDW 14.3 % (11.5-15.5); WBC 13.2 k/uL (3.8-10.6)
[2023-07-07 06:36] LABS: African American GFR (CKD) 32 (>60 ml/min/1.73 sqM); Anion Gap 13 mmol/L; Blood Urea Nitrogen 57 mg/dL (9-20); Calcium 8.2 mg/dL (8.4-10.2); Carbon Dioxide 15 mmol/L (22-30); Chloride 101 mmol/L (98-107); Glucose 110 mg/dL (74-99); Magnesium 1.7 mg/dL (1.6-2.3); Non-African American GFR(CKD) 27 (>60 ml/min/1.73 sqM); Potassium 4.4 mmol/L (3.5-5.1); Sodium 129 mmol/L (137-145)
[2023-07-07] MEDS: PANTOPRAZOLE 40 MG TABLET PO SCH (08:11)
[2023-07-07] MEDS: SODIUM FERRIC GLUCONAT-SUCROSE 125 MG in SODIUM CHLORIDE 0.9% 100 ML IVPB SCH (08:21)
[2023-07-07 10:13] LABS: Eosinophils # (M) 0.26 k/uL (0-0.7); Lymphocytes # (M) 1.45 k/uL (1.0-4.8); Monocytes # (M) 2.38 k/uL (0-1.0); Neutrophils # (M) 9.11 k/uL (1.3-7.7); Neutrophils % (M) 69 %; Nucleated Red Blood Cells 0 /100 WBC (0-0); Total Cells Counted 100
[2023-07-07 10:15] LABS: RBC Morphology Normal
[2023-07-07 10:16] LABS: Platelet Count 175 k/uL (150-450)
--- NOTE | 2023-07-07 10:57 | P.PN ---
Subjective Progress Note Date: 07/07/23 No new complaints today, s/p Operative repair. Cr improving. Gen: in no apparent distress, resting comfortably in bed Eyes: PERRL, no scleral injection or icterus HENT: normocephalic, atraumatic, good hearing acuity, moist mucous membranes Neck: no tracheal deviation, full range of motion Resp: good air exchange, breathing comfortably with no accessory muscle use, no tactile fremitus CVS: good distal perfusion x 4, no pitting edema GI: soft, NTTP, ND, no hepatosplenomegaly : no suprapubic tenderness, no CVAT, gilmore catheter not present MSK: no clubbing, no cyanosis, no noted contractures of extremities Skin: no noted rashes, petechiae; temperature of skin is appropriate Neuro: moving all extremities without signs of weakness, CN II-XII intact Psych: cooperative, euthymic mood, insight and judgment intact Hospital Course: 88-year-old male with medical history of CAD, hypertension, hyperlipidemia, recent admission and discharge for back infection after which she went to an extended care facility for antibiotics, presented for mechanical fall resulting in left hip fracture. Medicine was consulted for medical management as well as preoperative clearance. Today, patient is afebrile, 127/66, heart rate 73, 99% on 2 L of nasal cannula. CBC shows hemoglobin of 10.7. Basic metabolic panel shows sodium of 136, BUN of 20, creatinine of 1.23. Liver function tests are unremarkable. Coags are unremarkable. EKG demonstrates normal sinus rhythm with PACs, left bundle branch block. Chest x-ray, personally interpreted, demonstrates findings of hyperinflation, prominent pulmonary vasculature with nodular opacities in the right middle lobe, left upper lobe. -CT chest with angiography to rule out pulmonary embolism, characterize pulmonary nodules, results apprecaited - no evidence of pulmonary hypertension Assessment/plan: Mechanical fall resulting in left hip fracture Preoperative clearance -Patient is a high risk given low METS, but does not appear to be in acute congestive heart failure, nor have unstable anginal symptoms, therefore he may proceed to surgery without further need of testing as he does not have any perioperative modifiable risk factors Acute Kidney Injury Asymptomatic Pyuria Acute Blood Loss Anemia - anticipated outcome of surgery -UA has 33 WBCs moderate LE - -IVF to be continued -s/p 1U PRBC transfusion, daily IV iron started Pulmonary hypertension, class III 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 Bilateral lower extremity edema Acute Hypoxemic Respiratory Failure -repeat CXR today given ongoing post-op hypoxia -Continue albuterol as needed -No indication for steroids at this time Hypertension Hyperlipidemia CAD Paroxysmal atrial fibrillation, rate controlled -Continue atorvastatin, metoprolol, lisinopril -Hold aspirin at this time in anticipation of surgery -Hold apixaban Patient is full code Objective - Vital Signs Vital signs: Vital Signs Temp 97.5 F L 07/07/23 07:08 Pulse 62 07/07/23 07:08 Resp 18 07/07/23 07:08 BP 97/63 07/07/23 07:08 Pulse Ox 96 07/07/23 07:08 FiO2 Intake & Output 07/06/23 07/07/23 07/07/23 18:59 06:59 18:59 Intake Total 0 310 Output Total 700 Balance -700 310 Intake: Blood Product 0 310 Rc As-1 Unit 0 310 [id number] Output: Urine 700 Uretheral ([place]) 300 Other: Voiding Method Indwelling Catheter Indwelling Catheter Indwelling Catheter - Labs CBC & Chem 7: 07/07/23 05:59 07/07/23 05:59 Labs: Abnormal Lab Results - Last 24 Hours (Table) 07/03/23 07/06/23 07/06/23 Range/Units 23:56 06:42 06:42 WBC 11.62 H (4.50-10.00) X 10*3/uL RBC 2.70 L (4.40-5.60) X 10*6/uL Hgb 7.4 L (13.0-17.0) g/dL Hct 23.5 L (39.6-50.0) % MCHC 31.5 L (32.0-37.0) g/dL RDW 14.6 H (11.5-14.5) % Neutrophils # 9.20 H (1.80-7.70) X 10*3/uL Neutrophils # (Manual) (1.3-7.7) k/uL Lymphocytes # 0.81 L (0.90-5.00) X 10*3/uL Monocytes # 1.56 H (0.20-1.00) X 10*3/uL Monocytes # (Manual) (0-1.0) k/uL Eosinophils # 0 L (0.04-0.35) X 10*3/uL Sodium 133 L (135-145) mmol/L Carbon Dioxide (22-30) mmol/L Anion Gap 12.80 H (4.00-12.00) mmol/L BUN 44.0 H (9.0-27.0) mg/dL Creatinine 2.3 H (0.6-1.5) mg/dL Est GFR (CKD-EPI) 26 L (>=60) Glucose 130 H (70-110) mg/dL Calcium 8.3 L (8.7-10.3) mg/dL Crossmatch See Detail 07/07/23 07/07/23 Range/Units 05:59 05:59 WBC 13.2 H (4.50-10.00) X 10*3/uL RBC 3.44 L (4.40-5.60) X 10*6/uL Hgb 9.6 L (13.0-17.0) g/dL Hct 30.5 L (39.6-50.0) % MCHC (32.0-37.0) g/dL RDW (11.5-14.5) % Neutrophils # (1.80-7.70) X 10*3/uL Neutrophils # (Manual) 9.11 H (1.3-7.7) k/uL Lymphocytes # (0.90-5.00) X 10*3/uL Monocytes # (0.20-1.00) X 10*3/uL Monocytes # (Manual) 2.38 H (0-1.0) k/uL Eosinophils # (0.04-0.35) X 10*3/uL Sodium 129 L (135-145) mmol/L Carbon Dioxide 15 L (22-30) mmol/L Anion Gap (4.00-12.00) mmol/L BUN 57 H (9.0-27.0) mg/dL Creatinine 2.08 H (0.6-1.5) mg/dL Est GFR (CKD-EPI) (>=60) Glucose 110 H (70-110) mg/dL Calcium 8.2 L (8.7-10.3) mg/dL Crossmatch
--- NOTE | 2023-07-07 13:53 | P.PN ---
Subjective Progress Note Date: 07/07/23 Principal diagnosis: Left hip fracture Patient is seen at bedside this morning. He is postop day #2 from left hip david arthroplasty. He has pain at the surgical site as expected but denies any new complaints. He denies numbness, tingling or calf pain. Review of systems is negative for fever, chills, chest pain, shortness of breath or other Objective - Vital Signs Vital signs: Vital Signs Temp 97.5 F L 07/07/23 07:08 Pulse 62 07/07/23 07:08 Resp 18 07/07/23 07:08 BP 97/63 07/07/23 07:08 Pulse Ox 96 07/07/23 07:08 FiO2 Intake & Output 07/06/23 07/07/23 07/07/23 18:59 06:59 18:59 Intake Total 0 310 Output Total 700 Balance -700 310 Intake: Blood Product 0 310 Rc As-1 Unit 0 310 [id number] Output: Urine 700 Uretheral ([place]) 300 Other: Voiding Method Indwelling Catheter Indwelling Catheter Indwelling Catheter - Exam Inspection reveals a benign surgical wound. There is no active bleeding or drainage. Neurovascular status is intact throughout the lower extremity with motor and sensation fully intact. Calf is soft and nontender. 2+ dorsalis pedis pulse and less than 2 second cap refill is present. - Constitutional General appearance: Present: no acute distress - Labs CBC & Chem 7: 07/07/23 05:59 07/07/23 05:59 Labs: Abnormal Lab Results - Last 24 Hours (Table) 07/03/23 07/06/23 07/06/23 Range/Units 23:56 06:42 06:42 WBC (3.8-10.6) k/uL RBC (4.30-5.90) m/uL Hgb (13.0-17.5) gm/dL Hct (39.0-53.0) % Neutrophils # 9.20 H (1.80-7.70) X 10*3/uL Neutrophils # (Manual) (1.3-7.7) k/uL Lymphocytes # 0.81 L (0.90-5.00) X 10*3/uL Monocytes # 1.56 H (0.20-1.00) X 10*3/uL Monocytes # (Manual) (0-1.0) k/uL Eosinophils # 0 L (0.04-0.35) X 10*3/uL Sodium 133 L (135-145) mmol/L Carbon Dioxide (22-30) mmol/L Anion Gap 12.80 H (4.00-12.00) mmol/L BUN 44.0 H (9.0-27.0) mg/dL Creatinine 2.3 H (0.6-1.5) mg/dL Est GFR (CKD-EPI) 26 L (>=60) Glucose 130 H (70-110) mg/dL Calcium 8.3 L (8.7-10.3) mg/dL Crossmatch See Detail 07/07/23 07/07/23 Range/Units 05:59 05:59 WBC 13.2 H (3.8-10.6) k/uL RBC 3.44 L (4.30-5.90) m/uL Hgb 9.6 L (13.0-17.5) gm/dL Hct 30.5 L (39.0-53.0) % Neutrophils # (1.80-7.70) X 10*3/uL Neutrophils # (Manual) 9.11 H (1.3-7.7) k/uL Lymphocytes # (0.90-5.00) X 10*3/uL Monocytes # (0.20-1.00) X 10*3/uL Monocytes # (Manual) 2.38 H (0-1.0) k/uL Eosinophils # (0.04-0.35) X 10*3/uL Sodium 129 L (135-145) mmol/L Carbon Dioxide 15 L (22-30) mmol/L Anion Gap (4.00-12.00) mmol/L BUN 57 H (9.0-27.0) mg/dL Creatinine 2.08 H (0.6-1.5) mg/dL Est GFR (CKD-EPI) (>=60) Glucose 110 H (70-110) mg/dL Calcium 8.2 L (8.7-10.3) mg/dL Crossmatch Assessment and Plan (1) Hip fracture, left Narrative/Plan: He will continue with routine postop orthopedic protocol including pain management, wound care, PT, DVT prophylaxis and medical management. Expect that he will transfer to [facility] in next 1-2 days Current Visit: Yes Status: Acute Priority: Medium Code(s): S72.002A - FRACTURE OF UNSP PART OF NECK OF LEFT FEMUR, INIT SNOMED Code(s): 092169186 Time with Patient: Less than 30
[2023-07-08 07:02] LABS: HCT 27.6 % (39.0-53.0); HGB 9.3 gm/dL (13.0-17.5); MCH 28.9 pg (25.0-35.0); MCHC 33.6 g/dL (31.0-37.0); MCV 85.9 fL (80.0-100.0); Mean Platelet Volume 8.5; Platelet Count 211 k/uL (150-450); RBC 3.22 m/uL (4.30-5.90); RDW 14.3 % (11.5-15.5); WBC 10.4 k/uL (3.8-10.6)
[2023-07-08 10:12] LABS: Nucleated Red Blood Cells 0 /100 WBC (0-0)
[2023-07-08 10:14] LABS: Lymphocytes # (M) 1.46 k/uL (1.0-4.8); Monocytes # (M) 2.08 k/uL (0-1.0); Neutrophils # (M) 6.86 k/uL (1.3-7.7); Neutrophils % (M) 66 %; Total Cells Counted 100
--- NOTE | 2023-07-08 11:25 | P.PN ---
Subjective Progress Note Date: 07/08/23 No new complaints today, s/p Operative repair. BMP pending. Gen: in no apparent distress, resting comfortably in bed Eyes: PERRL, no scleral injection or icterus HENT: normocephalic, atraumatic, good hearing acuity, moist mucous membranes Neck: no tracheal deviation, full range of motion Resp: good air exchange, breathing comfortably with no accessory muscle use, no tactile fremitus CVS: good distal perfusion x 4, no pitting edema GI: soft, NTTP, ND, no hepatosplenomegaly : no suprapubic tenderness, no CVAT, gilmore catheter not present MSK: no clubbing, no cyanosis, no noted contractures of extremities Skin: no noted rashes, petechiae; temperature of skin is appropriate Neuro: moving all extremities without signs of weakness, CN II-XII intact Psych: cooperative, euthymic mood, insight and judgment intact Hospital Course: 88-year-old male with medical history of CAD, hypertension, hyperlipidemia, recent admission and discharge for back infection after which she went to an extended care facility for antibiotics, presented for mechanical fall resulting in left hip fracture. Medicine was consulted for medical management as well as preoperative clearance. Today, patient is afebrile, 127/66, heart rate 73, 99% on 2 L of nasal cannula. CBC shows hemoglobin of 10.7. Basic metabolic panel shows sodium of 136, BUN of 20, creatinine of 1.23. Liver function tests are unremarkable. Coags are unremarkable. EKG demonstrates normal sinus rhythm with PACs, left bundle branch block. Chest x-ray, personally interpreted, demonstrates findings of hyperinflation, prominent pulmonary vasculature with nodular opacities in the right middle lobe, left upper lobe. -CT chest with angiography to rule out pulmonary embolism, characterize pulmonary nodules, results apprecaited - no evidence of pulmonary hypertension Assessment/plan: Mechanical fall resulting in left hip fracture Preoperative clearance -Patient is a high risk given low METS, but does not appear to be in acute congestive heart failure, nor have unstable anginal symptoms, therefore he may proceed to surgery without further need of testing as he does not have any perioperative modifiable risk factors Acute Kidney Injury Asymptomatic Pyuria Acute Blood Loss Anemia - anticipated outcome of surgery -UA has 33 WBCs moderate LE - -IVF to be continued -s/p 1U PRBC transfusion on 07/05, daily IV iron started on 07/06 Pulmonary hypertension, class III 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 Bilateral lower extremity edema Acute Hypoxemic Respiratory Failure -repeat CXR today given ongoing post-op hypoxia -Continue albuterol as needed -No indication for steroids at this time Hypertension Hyperlipidemia CAD Paroxysmal atrial fibrillation, rate controlled -Continue atorvastatin, metoprolol, lisinopril -Hold aspirin at this time in anticipation of surgery -Hold apixaban Patient is full code Objective - Vital Signs Vital signs: Vital Signs Temp 98.1 F 07/08/23 08:00 Pulse 82 07/08/23 08:00 Resp 19 07/08/23 08:00 BP 153/96 07/08/23 08:00 Pulse Ox 93 L 07/08/23 08:22 FiO2 Intake & Output 07/07/23 07/08/23 07/08/23 18:59 06:59 18:59 Output Total 550 Balance -550 Output: Urine 550 Other: Voiding Method Indwelling Catheter - Labs CBC & Chem 7: 07/08/23 05:49 07/07/23 05:59 Labs: Abnormal Lab Results - Last 24 Hours (Table) 07/08/23 Range/Units 05:49 RBC 3.22 L (4.30-5.90) m/uL Hgb 9.3 L (13.0-17.5) gm/dL Hct 27.6 L (39.0-53.0) % Monocytes # (Manual) 2.08 H (0-1.0) k/uL
--- NOTE | 2023-07-08 11:39 | P.DS ---
Providers Date of admission: 07/03/23 22:03 Expected date of discharge: 07/08/23 Attending physician: Chaz Liriano Consults: 07/03/23 22:03 Consult Physician Urgent Consulting Provider: Natalie Draper Consult Reason/Comments: pre surgical clearance and medical justo. Do you want consulting provider notified?: Yes Primary care physician: Tierra Mcfarland, DO - Discharge Diagnosis(es) (1) Fracture of femoral neck, left Current Visit: Yes Status: Acute (2) Fall from standing Current Visit: Yes Status: Acute Hospital Course: This is an 88-year-old male who presented on 07/03/2023 after falling and sustaining injury to the left hip. On exam and x-ray in the emergency department she was found to have a hip fracture. The pt is admitted to our service for surgical intervention and care. The patient is taken to surgery for hemiarthroplasty of the left hip. The procedure is performed without complication or sequelae. The patient is doing well postoperatively. Vital signs are stable on postop day #3. There are no new complaints or concerns. The patient is discharged to inpatient rehab pending medical clearance today. Please refer to the med rec for accurate list of medications. Patient Condition at Discharge: Fair Plan - Discharge Summary New Discharge Prescriptions: New HYDROcodone/APAP 5-325MG [Elba 5-325] 1 - 2 tab PO Q6HR PRN #32 tab PRN Reason: Pain Sennosides-Docusate Sodium [Senokot-S] 1 tab PO BID #60 tablet No Action Latanoprost Ophth [Xalatan 0.005%] 1 drop BOTH EYES HS@2000 Thiamine [Vitamin B-1] 100 mg PO DAILY #30 tab Famotidine [Pepcid] 20 mg PO DAILY Albuterol Inhaler [Ventolin Hfa Inhaler] 2 puff INHALATION RT-Q6H PRN PRN Reason: Shortness Of Breath Magnesium Hydroxide [Milk of Magnesia] 2,400 mg PO DAILY PRN PRN Reason: Constipation Sennosides [Senokot] 8.6 mg PO DAILY PRN PRN Reason: Constipation Lansoprazole [Prevacid] 15 mg PO DAILY lisinopriL [Zestril] 5 mg PO DAILY #30 tab Apixaban [Eliquis] 2.5 mg PO BID Metoprolol Tartrate [Lopressor] 25 mg PO BID tab Atorvastatin [Lipitor] 20 mg PO HS@1999 Discharge Medication List Latanoprost Ophth [Xalatan 0.005%] 1 drop BOTH EYES HS@199901/02/17 [History] Thiamine [Vitamin B-1] 100 mg PO DAILY #30 tab 11/27/21 [Rx] lisinopriL [Zestril] 5 mg PO DAILY #30 tab 11/27/21 [Rx] Apixaban [Eliquis] 2.5 mg PO BID 08/29/22 [History] Famotidine [Pepcid] 20 mg PO DAILY 08/29/22 [History] Albuterol Inhaler [Ventolin Hfa Inhaler] 2 puff INHALATION RT-Q6H PRN 10/27/22 [History] Metoprolol Tartrate [Lopressor] 25 mg PO BID tab 10/30/22 [Rx] Atorvastatin [Lipitor] 20 mg PO HS@199901/21/23 [History] Magnesium Hydroxide [Milk of Magnesia] 2,400 mg PO DAILY PRN 01/21/23 [History] Lansoprazole [Prevacid] 15 mg PO DAILY 07/03/23 [History] Sennosides [Senokot] 8.6 mg PO DAILY PRN 07/03/23 [History] HYDROcodone/APAP 5-325MG [Elba 5-325] 1 - 2 tab PO Q6HR PRN #32 tab 07/05/23 [Rx] Sennosides-Docusate Sodium [Senokot-S] 1 tab PO BID #60 tablet 07/05/23 [Rx] Follow up Appointment(s)/Referral(s): Paige Nunez PAC [PHYSICIAN SCALE ATTENDANT] - 3 Weeks Tierra Mcfarland DO [Primary Care Provider] - 1-2 days Activity/Diet/Wound Care/Special Instructions: May bear weight as tolerated with walker. May shower 48 hours postop. Remove Optifoam dressing 7 days postop. Discharge Disposition: TRANSFER TO SNF/ECF
[2023-07-08 12:42] LABS: African American GFR (CKD) 38 (>60 ml/min/1.73 sqM); Anion Gap 6 mmol/L; Blood Urea Nitrogen 53 mg/dL (9-20); Calcium 7.8 mg/dL (8.4-10.2); Carbon Dioxide 21 mmol/L (22-30); Chloride 104 mmol/L (98-107); Glucose 113 mg/dL (74-99); Magnesium 1.7 mg/dL (1.6-2.3); Non-African American GFR(CKD) 32 (>60 ml/min/1.73 sqM); Potassium 4.4 mmol/L (3.5-5.1); Sodium 131 mmol/L (137-145)
[2023-07-08 14:34] VITALS: BP 121/73; PULSE 74; RESP 16; TEMP 98.2
== END 2023-07-08 17:50 | DRG 521 ==
LOC: EC 19:39 → 4SSUR 22:03
PROVIDERS: ADMIT Orthopaedic Surgery; ATTEND Orthopaedic Surgery
PROC: 3E0T3BZ Introduction of Anesthetic Agent into Peripheral Nerves and Plexi, Percutaneous Approach (ICD-10-PCS; 2023-07-05)
PROC: 30233N1 Transfusion of Nonautologous Red Blood Cells into Peripheral Vein, Percutaneous Approach (ICD-10-PCS; 2023-07-05)
PROC: 0SRS0J9 Replacement of Left Hip Joint, Femoral Surface with Synthetic Substitute, Cemented, Open Approach (ICD-10-PCS; principal; 2023-07-05 11:00)
DX: S72.002A Fracture of unspecified part of neck of left femur, initial encounter for closed fracture (principal); J96.01 Acute respiratory failure with hypoxia; D62 Acute posthemorrhagic anemia; N17.9 Acute kidney failure, unspecified; I42.9 Cardiomyopathy, unspecified; S51.012A Laceration without foreign body of left elbow, initial encounter; W18.30XA Fall on same level, unspecified, initial encounter; E78.5 Hyperlipidemia, unspecified; I10 Essential (primary) hypertension; I25.10 Atherosclerotic heart disease of native coronary artery without angina pectoris; I48.0 Paroxysmal atrial fibrillation; Z79.01 Long term (current) use of anticoagulants; I27.20 Pulmonary hypertension, unspecified; J44.9 Chronic obstructive pulmonary disease, unspecified; R82.81 Pyuria; I44.7 Left bundle-branch block, unspecified; Z79.899 Other long term (current) drug therapy; Z91.81 History of falling; Z99.3 Dependence on wheelchair; Z86.14 Personal history of Methicillin resistant Staphylococcus aureus infection; Z98.42 Cataract extraction status, left eye; Z98.41 Cataract extraction status, right eye
CPT/HCPCS: 36415; 36430; 70450; 71045; 71275; 73501; 73502; 80048; 80053; 81001; 83735; 85025; 85610; 85730; 86850; 86900; 86901; 86920; 93005; 93308; 94760; 96374; 99285

== ENCOUNTER 2023-07-11 12:22 | Inpatient (IN) | payer MEDICARE ==
[2023-07-11] MEDS: SODIUM CHLORIDE 0.9% 500 ML 500 ML IV STA (12:55)
--- NOTE | 2023-07-11 13:23 | ED ---
Weakness HPI - General Chief complaint: Recheck/Abnormal Lab/Rx Stated complaint: abn labs Time Seen by Provider: 07/11/23 12:27 Source: patient, EMS, RN notes reviewed, old records reviewed Mode of arrival: EMS Limitations: no limitations - History of Present Illness Initial comments: This is a 88-year-old male to ER for evaluation of an abnormal lab test. Patient is here for low hemoglobin. Patient presents is a significantly poor historian without complaint and offers no help with history of present illness MD Complaint: generalized weakness -: unknown Severity: severe Consistency: constant Improves with: none Worsens with: none Context: recent illness, recent surgery Associated Symptoms: denies other symptoms - Related Data Home Medications Medication Instructions Recorded Confirmed Latanoprost Ophth [Xalatan 0.005%] 1 drop BOTH EYES HS 01/02/17 07/11/23 Famotidine [Pepcid] 20 mg PO DAILY 08/29/22 07/11/23 Albuterol Inhaler [Ventolin Hfa 2 puff INHALATION RT-Q6H PRN 10/27/22 07/11/23 Inhaler] Atorvastatin [Lipitor] 20 mg PO HS 01/21/23 07/11/23 Magnesium Hydroxide [Milk of 2,400 mg PO DAILY PRN 01/21/23 07/11/23 Magnesia] Lansoprazole [Prevacid] 15 mg PO DAILY 07/03/23 07/11/23 Sennosides [Senokot] 8.6 mg PO DAILY 07/03/23 07/11/23 Docusate [Colace] 100 mg PO BID 07/11/23 07/11/23 Menthol [Icy Hot] 1 patch TRANSDERM BID 07/11/23 07/11/23 Metoprolol Tartrate [Lopressor] 25 mg PO BID@0700,1900 07/11/23 07/11/23 Pantoprazole [Protonix] 40 mg PO DAILY 07/11/23 07/11/23 Previous Rx's Medication Instructions Recorded Thiamine [Vitamin B-1] 100 mg PO DAILY #30 tab 11/27/21 lisinopriL [Zestril] 5 mg PO DAILY #30 tab 11/27/21 Acetaminophen Tab [Tylenol] 650 mg PO Q6HR PRN tab 07/08/23 Ferrous Sulfate [Iron (65 MG 325 mg PO DAILY #30 tab 07/08/23 Elemental)] HYDROcodone/APAP 5-325MG [Chandler 1 tab PO Q6HR PRN #6 tab 07/12/23 5-325] Allergies Allergy/AdvReac Type Severity Reaction Status Date / Time No Known Allergies Allergy Verified 07/03/23 22:16 Review of Systems ROS Statement: Those systems with pertinent positive or pertinent negative responses have been documented in the HPI. ROS Other: All systems not noted in ROS Statement are negative. Past Medical History Past Medical History: Coronary Artery Disease (CAD), Hyperlipidemia, Hypertension Additional Past Medical History / Comment(s): arthritis in back, cataracts History of Any Multi-Drug Resistant Organisms: MRSA Date of last positivie culture/infection: 01/23/23 MDRO Source:: Back Past Surgical History: Heart Catheterization, Hernia Repair, Tonsillectomy Additional Past Surgical History / Comment(s): colonoscopy, iban cataracts, wisdom teeth Past Anesthesia/Blood Transfusion Reactions: No Reported Reaction Past Psychological History: No Psychological Hx Reported Smoking Status: Light tobacco smoker Past Alcohol Use History: Occasional Past Drug Use History: None Reported - Past Family History Father Family Medical History: Cancer Additional Family Medical History / Comment(s): ca of lymph nodes General Exam Limitations: no limitations General appearance: alert, in no apparent distress Head exam: Present: atraumatic, normocephalic, normal inspection Eye exam: Present: normal appearance, PERRL, EOMI. Absent: scleral icterus, conjunctival injection, periorbital swelling ENT exam: Present: normal exam, mucous membranes moist Neck exam: Present: normal inspection. Absent: tenderness, meningismus, lymphadenopathy Respiratory exam: Present: normal lung sounds bilaterally. Absent: respiratory distress, wheezes, rales, rhonchi, stridor Cardiovascular Exam: Present: regular rate, normal rhythm, normal heart sounds. Absent: systolic murmur, diastolic murmur, rubs, gallop, clicks GI/Abdominal exam: Present: soft, normal bowel sounds. Absent: distended, tenderness, guarding, rebound, rigid Extremities exam: Present: normal inspection, full ROM, normal capillary refill. Absent: tenderness, pedal edema, joint swelling, calf tenderness Back exam: Present: normal inspection Neurological exam: Present: alert, oriented X3, CN II-XII intact Psychiatric exam: Present: normal affect, normal mood Skin exam: Present: warm, dry, intact, normal color. Absent: rash Course Vital Signs 07/11/23 07/11/23 07/11/23 12:29 14:57 17:07 Temperature 97.6 F Pulse Rate 76 86 77 Respiratory 20 18 20 Rate Blood Pressure 121/67 155/56 149/67 O2 Sat by Pulse 100 98 92 L Oximetry 07/11/23 07/11/23 07/11/23 18:23 18:40 19:00 Temperature 96.9 F L 96.9 F L 97 F L Pulse Rate 80 80 83 Respiratory 20 18 20 Rate Blood Pressure 138/64 129/62 128/6 O2 Sat by Pulse 93 L 98 98 Oximetry 07/11/23 07/11/23 07/11/23 20:00 20:50 21:00 Temperature 97.2 F L 98.1 F Pulse Rate 82 79 60 Respiratory 18 17 16 Rate Blood Pressure 132/58 128/76 122/63 O2 Sat by Pulse 97 95 96 Oximetry 07/12/23 07/12/23 07/12/23 00:00 02:00 05:00 Temperature Pulse Rate 64 63 72 Respiratory 16 16 18 Rate Blood Pressure 110/54 104/57 130/63 O2 Sat by Pulse 95 96 93 L Oximetry - Reevaluation(s) Reevaluation #1: 07/11/23 15:29 Medical records reviewed Reevaluation #2: 07/11/23 15:29 Patient has significant hemoglobin diminishing here in the ER Reevaluation #3: 07/11/23 15:29 Patient informed of results questions answered Reevaluation #4: Was pt. sent in by a medical professional or institution (, PA, LABOR MEDIATOR, urgent care, hospital, or [place] health care facility...) When possible be specific @ -no Did you speak to anyone other than the patient for history (EMS, parent, family, police, friend...)? What history was obtained from this source @ -no Did you review nursing and triage notes (agree or disagree)? Why? @ -agree Are old charts reviewed (outside hosp., previous admission, EMS record, old EKG, old radiological studies, urgent care reports/EKG's, [place] [facility] facility records)? Report findings @ -yes Differential Diagnosis (chest pain, altered mental status, abdominal pain women, abdominal pain men, vaginal bleeding, weakness, fever, dyspnea, syncope, headache, dizziness, GI bleed, back pain, seizure, CVA, palpatations, mental health, musculoskeletal)? @ -prior EKG interpreted by me (3pts min.). @ -yes X-rays interpreted by me (1pt min.). @ -no CT interpreted by me (1pt min.). @ -no U/S interpreted by me (1pt. min.). @ -no What testing was considered but not performed or refused? (CT, X-rays, U/S, labs)? Why? @ -none What meds were considered but not given or refused? Why? @ -none Did you discuss the management of the patient with other professionals (professionals i.e. , PA, LABOR MEDIATOR, lab, RT, psych nurse, aids social worker, processing clerk, teacher, personal banking officer, director case management)? Give summary @ -no Was smoking cessation discussed for >3mins.? @ -no Was critical care preformed (if so, how long)? @ -no Were there social determinants of health that impacted care today? How? (Homelessness, low income, unemployed, alcoholism, drug addiction, transportation, low edu. Level, literacy, decrease access to med. care, nursing home, rehab)? @ -none Was there de-escalation of care discussed even if they declined (Discuss DNR or withdrawal of care, Hospice)? DNR status @ -no What co-morbidities impacted this encounter? (DM, HTN, Smoking, COPD, CAD, Cancer, CVA, ARF, Chemo, Hep., AIDS, mental health diagnosis, sleep apnea, morb id obesity)? @ -none Was patient admitted / discharged? Hospital course, mention meds given and rou te, prescriptions, significant lab abnormalities, going to OR and other pertinent info. @ - 88 male to ER for evaluation found to have significant anemia postoperatively. Patient has hemoglobin less than 7 will admit for transfusion and further monitoring, pain control Admitted Undiagnosed new problem with uncertain prognosis? @ -no Drug Therapy requiring intensive monitoring for toxicity (Heparin, Nitro, Insulin, Cardizem)? @ -no Were any procedures done? @ -no Diagnosis/symptom? @ -Anemia, weakness Acute, or Chronic, or Acute on Chronic? @ -Acute Uncomplicated (without systemic symptoms) or Complicated (systemic symptoms)? @ -Complicated Side effects of treatment? @ -no Exacerbation, Progression, or Severe Exacerbation? @ -exacerbation Poses a threat to life or bodily function? How? (Chest pain, [place], [place], pneumonia, PE, COPD, DKA, ARF, appy, cholecystitis, CVA, Diverticulitis, Homicidal, Suicidal, threat to staff... and all critical care pts) @ -yes with significant anemia Reevaluation #5: Differential Weakness: Hypoglycemia, shock, sepsis, hyponatremia, anemia, infection, [place], ETOH, adverse medicine reaction, overdose, stroke, this is not meant to be an all-inclusive list. - Consultations Consultation #1: Spoke with sound who does agree to admit this patient EKG Findings - EKG Comments: EKG Findings:: EKG is sinus 73 NC 258 QRS 153 QTc 450 - EKG Results: EKG: interpreted by FLAKITO Medical Decision Making - Medical Decision Making 88 male to ER for evaluation found to have significant anemia postoperatively. Patient has hemoglobin less than 7 will admit for transfusion and further monitoring, pain control - Lab Data Result diagrams: 07/12/23 08:44 07/12/23 08:44 Lab Results 07/11/23 07/11/23 07/11/23 Range/Units 12:59 12:59 12:59 WBC 8.2 (3.8-10.6) k/uL RBC 2.33 L (4.30-5.90) m/uL Hgb 6.6 L* D (13.0-17.5) gm/dL Hct 20.7 L (39.0-53.0) % MCV 88.6 (80.0-100.0) fL MCH 28.3 (25.0-35.0) pg MCHC 31.9 (31.0-37.0) g/dL RDW 14.9 (11.5-15.5) % Plt Count 336 (150-450) k/uL MPV 8.1 Neutrophils % (Manual) 75 % Lymphocytes % (Manual) 16 % Monocytes % (Manual) 9 % Neutrophils # (Manual) 6.15 (1.3-7.7) k/uL Lymphocytes # (Manual) 1.31 (1.0-4.8) k/uL Monocytes # (Manual) 0.74 (0-1.0) k/uL Nucleated RBCs 0 (0-0) /100 WBC Manual Slide Review Performed Sodium 131 L (137-145) mmol/L Potassium 4.2 (3.5-5.1) mmol/L Chloride 104 (98-107) mmol/L Carbon Dioxide 23 (22-30) mmol/L Anion Gap 4 mmol/L BUN 42 H (9-20) mg/dL Creatinine 1.47 H (0.66-1.25) mg/dL Est GFR (CKD-EPI)AfAm 48 (>60 ml/min/1.73 sqM) Est GFR (CKD-EPI)NonAf 42 (>60 ml/min/1.73 sqM) Glucose 169 H (74-99) mg/dL Calcium 8.0 L (8.4-10.2) mg/dL Phosphorus 3.1 (2.5-4.5) mg/dL Magnesium 1.7 (1.6-2.3) mg/dL Total Bilirubin 0.8 (0.2-1.3) mg/dL AST 56 (17-59) U/L ALT 25 (4-49) U/L Alkaline Phosphatase 135 H (38-126) U/L Troponin I <0.012 (0.000-0.034) ng/mL Total Protein 5.1 L (6.3-8.2) g/dL Albumin 2.4 L (3.5-5.0) g/dL - EKG Data -: EKG Interpreted by Me Critical Care Time Critical Care Time: Yes Total Critical Care Time: 31 Disposition Clinical Impression: Blood loss, Anemia, Postoperative pain, acute, hip, Coagulopathy Disposition: ADMITTED IP TO THIS [facility] Condition: Stable Is patient prescribed a controlled substance at d/c from ED?: No Time of Disposition: 16:00
[2023-07-11 13:43] LABS: ALT 25 U/L (4-49); AST 56 U/L (17-59); African American GFR (CKD) 48 (>60 ml/min/1.73 sqM); Albumin 2.4 g/dL (3.5-5.0); Alkaline Phosphatase 135 U/L (38-126); Anion Gap 4 mmol/L; Blood Urea Nitrogen 42 mg/dL (9-20); Carbon Dioxide 23 mmol/L (22-30); Chloride 104 mmol/L (98-107); Glucose 169 mg/dL (74-99); Magnesium 1.7 mg/dL (1.6-2.3); Non-African American GFR(CKD) 42 (>60 ml/min/1.73 sqM); Phosphorus 3.1 mg/dL (2.5-4.5); Potassium 4.2 mmol/L (3.5-5.1); Sodium 131 mmol/L (137-145); Total Bilirubin 0.8 mg/dL (0.2-1.3); Total Protein 5.1 g/dL (6.3-8.2)
[2023-07-11 13:52] LABS: HCT 20.7 % (39.0-53.0); MCH 28.3 pg (25.0-35.0); MCHC 31.9 g/dL (31.0-37.0); MCV 88.6 fL (80.0-100.0); Mean Platelet Volume 8.1; Platelet Count 336 k/uL (150-450); RBC 2.33 m/uL (4.30-5.90); RDW 14.9 % (11.5-15.5); WBC 8.2 k/uL (3.8-10.6)
[2023-07-11 13:59] LABS: HGB 6.6 gm/dL (13.0-17.5)
[2023-07-11 14:47] LABS: Lymphocytes # (M) 1.31 k/uL (1.0-4.8); Monocytes # (M) 0.74 k/uL (0-1.0); Neutrophils # (M) 6.15 k/uL (1.3-7.7); Neutrophils % (M) 75 %; Nucleated Red Blood Cells 0 /100 WBC (0-0); Total Cells Counted 100
[2023-07-11] MEDS ORDERED: ONDANSETRON 4 MG/2 ML VIAL IVP PRN (16:25)
[2023-07-11] MEDS ORDERED: NALOXONE 0.4 MG/ML 1 ML VIAL IV PRN (16:25)
[2023-07-11] MEDS ORDERED: MAGNESIUM HYDROXIDE 2,400 MG/30 ML CUP PO PRN (17:02)
[2023-07-11] MEDS ORDERED: ACETAMINOPHEN TAB 325 MG TAB PO PRN (17:02)
[2023-07-11] MEDS ORDERED: ALBUTEROL NEBULIZED 2.5 MG/3 ML INHALATION PRN (17:02)
[2023-07-11] MEDS: MORPHINE SULFATE 4 MG/ML SYRINGE IV PRN (17:07)
[2023-07-11] MEDS: MAGNESIUM OXIDE 400 MG TAB PO STA (17:14)
--- NOTE | 2023-07-11 17:59 | P.HPIM ---
History of Present Illness H&P Date: 07/11/23 History of Presenting Illness: Patient is a very pleasant 88-year-old male with a past medical history of CAD, known left bundle branch block, hypertension, and hyperlipidemia. He was recently admitted to the hospital 07/04/2023 through 07/08/2023 secondary to fall from wheelchair resulting in a left femoral neck fracture. On 07/05/2023 patient underwent a left unipolar hip hemiarthroplasty by Dr. Liriano and was later discharged to [facility] for rehab. It appears Eliquis was discontinued on patient's last discharge however patient was still receiving at [facility]. Patient had repeat lab work completed and was found to have a low hemoglobin of 6.7 and sent to the emergency department for transfusion and further evaluation. Upon arrival to our facility patient underwent evaluation. Vital signs upon arrival show blood pressure 121/67, heart rate 76, respiratory rate 20, temp 97.6 F, and SpO2 of 100% on 4 L of oxygen. EKG was completed showing normal sinus rhythm with a left bundle branch block at 73 bpm. Labs completed and reviewed. CBC showing normocytic anemia with hemoglobin of 6.6. BMP showing hyponatremia with sodium of 131 and elevated renal function with BUN of 42, and creatinine of 1.47 with GFR of 42 (improved from previous hospitalization with last creatinine of 1.8). Blood glucose was 169. Magnesium slightly low at 1.7. Liver profile showing elevated alkaline phosphatase of 135 otherwise normal findings. Troponin was negative at less than 0.012. Patient admitted under our services. Patient currently free from any complaints. He reports mild postoperative pain to left hip. Minimal bruising noted to left lower thigh. No hematoma or large area of bruising noted to left hip. Post surgical incision intact, appears to be healing well with no drainage or signs of active bleeding. Review of systems: Pertinent positives and negatives as discussed in HPI, a complete review of systems was performed and all other systems are negative. Physical exam: Vital signs reviewed and stable. General: Nontoxic, no distress and appears stated age. Derm: Skin warm and dry, normal coloration for ethnicity. Head: Atraumatic, normocephalic and symmetric. Eyes: EOMs intact, no lid lag, and anicteric sclera Mouth: no lip lesions, mucus membranes moist Cardiovascular: regular rate and rhythm with normal S1S2, no murmur, positive posterior tibial pulses bilaterally, and cap refill < 2 seconds. Lungs: Respirations even, regular, and unlabored on 2 L O2. Lungs diminished, no rhonchi, no rales, no wheezing, and no accessory muscle usage. Abdominal: soft, nontender to palpation, no guarding, no appreciable organ omegaly Ext: ROM intact. No gross muscle atrophy, 1+ pitting bilateral lower extremity edema, no contractures Neuro: Speech clear, face symmetrical and CN II-XII grossly intact with no noted focal neuro deficits Psych: Alert and oriented to person, place, time, and situation. Appropriate and pleasant affect. Assessment and Plan of Care: Acute blood loss anemia Status post recent left unipolar hip hemiarthroplasty on 07/05/2023 -Secondary to recent surgical procedure and taking anticoagulant. No active signs of bleeding noted at this time. -Hemoglobin 6.6 order was placed for type and screen and transfusion of 1 unit PRBCs. -We will continue to monitor closely with repeat CBC every 6 hours. -Eliquis was discontinued per discharge plan on previous admission, but pt was still receiving at [facility]. Will discontinue now. -Telemetry monitoring -Fall precautions -PT/OT consulted -Continue ferrous sulfate 325 mg daily. -GI prophylaxis with Protonix 40 mg daily. -DVT prophylaxis with ONEIL hose and SCDs. -Order placed for one-time dose of Lasix 40 mg IVP to be administered after completion of transfusion of PRBCs. History of CAD Hypertension Hyperlipidemia -Patient to continue daily medication regimen with atorvastatin 20 mg nightly, lisinopril 5 mg daily, and metoprolol 25 mg twice daily. Data and imaging reviewed: As stated above in HPI. The patient is admitted with an anticipated less than 2 midnight stay for evaluation of acute blood loss anemia. CODE STATUS: Full code DVT prophylaxis: ONEIL hose and SCDs Anticipated discharge date: 24 to [address]: Return to SNF Patient was seen independently by Nurse Practitioner. This document was prepared using [employer] dictation software. Please allow for errors in computer service technician while rare they do occur. Sal Wright NP rendered care for this patient independently, reviewed the findings and plan as documented in the note above. I did not physically speak with or examine the patient on this date. Past Medical History Past Medical History: Coronary Artery Disease (CAD), Hyperlipidemia, Hyp ertension Additional Past Medical History / Comment(s): arthritis in back, cataracts History of Any Multi-Drug Resistant Organisms: MRSA Date of last positivie culture/infection: 01/23/23 MDRO Source:: Back Past Surgical History: Heart Catheterization, Hernia Repair, Tonsillectomy Additional Past Surgical History / Comment(s): colonoscopy, iban cataracts, wisdom teeth Past Anesthesia/Blood Transfusion Reactions: No Reported Reaction Past Psychological History: No Psychological Hx Reported Smoking Status: Light tobacco smoker Past Alcohol Use History: Occasional Past Drug Use History: None Reported - Past Family History Father Family Medical History: Cancer Additional Family Medical History / Comment(s): ca of lymph nodes Medications and Allergies Home Medications Medication Instructions Recorded Confirmed Type Latanoprost Ophth [Xalatan 0.005%] 1 drop BOTH EYES HS 01/02/17 07/11/23 History Thiamine [Vitamin B-1] 100 mg PO DAILY #30 tab 11/27/21 07/11/23 Rx lisinopriL [Zestril] 5 mg PO DAILY #30 tab 11/27/21 07/11/23 Rx Famotidine [Pepcid] 20 mg PO DAILY 08/29/22 07/11/23 History Albuterol Inhaler [Ventolin Hfa 2 puff INHALATION RT-Q6H PRN 10/27/22 07/11/23 History Inhaler] Atorvastatin [Lipitor] 20 mg PO HS 01/21/23 07/11/23 History Magnesium Hydroxide [Milk of 2,400 mg PO DAILY PRN 01/21/23 07/11/23 History Magnesia] Lansoprazole [Prevacid] 15 mg PO DAILY 07/03/23 07/11/23 History Sennosides [Senokot] 8.6 mg PO DAILY 07/03/23 07/11/23 History Acetaminophen Tab [Tylenol] 650 mg PO Q6HR PRN tab 07/08/23 07/11/23 Rx Ferrous Sulfate [Iron (65 MG 325 mg PO DAILY #30 tab 07/08/23 07/11/23 Rx Elemental)] Apixaban [Eliquis] 2.5 mg PO BID@0700,1900 07/11/23 07/11/23 History Docusate [Colace] 100 mg PO BID 07/11/23 07/11/23 History HYDROcodone/APAP 5-325MG [[place] 1 tab PO Q6HR PRN 07/11/23 07/11/23 History 5-325] Menthol [Icy Hot] 1 patch TRANSDERM BID 07/11/23 07/11/23 History Metoprolol Tartrate [Lopressor] 25 mg PO BID@0700,1900 07/11/23 07/11/23 History Pantoprazole [Protonix] 40 mg PO DAILY 07/11/23 07/11/23 History Allergies Allergy/AdvReac Type Severity Reaction Status Date / Time No Known Allergies Allergy Verified 07/03/23 22:16 Physical Exam Vitals: Vital Signs Temp Pulse Resp BP Pulse Ox 07/11/23 14:57 86 18 155/56 98 07/11/23 12:29 97.6 F 76 20 121/67 100 Intake and Output 07/11/23 07/11/23 07/11/23 06:59 14:59 22:59 Other: Weight 66.678 kg Results CBC & Chem 7: 07/11/23 12:59 07/11/23 12:59 Labs: Abnormal Lab Results - Last 24 Hours (Table) 07/11/23 07/11/23 Range/Units 12:59 12:59 RBC 2.33 L (4.30-5.90) m/uL Hgb 6.6 L* D (13.0-17.5) gm/dL Hct 20.7 L (39.0-53.0) % Sodium 131 L (137-145) mmol/L BUN 42 H (9-20) mg/dL Creatinine 1.47 H (0.66-1.25) mg/dL Glucose 169 H (74-99) mg/dL Calcium 8.0 L (8.4-10.2) mg/dL Alkaline Phosphatase 135 H (38-126) U/L Total Protein 5.1 L (6.3-8.2) g/dL Albumin 2.4 L (3.5-5.0) g/dL
[2023-07-11] MEDS ORDERED: MENTHOL TRANSDERM SCH (21:00)
[2023-07-11] MEDS: HYDROcodone/APAP 5-325MG 1 EACH TAB PO PRN (21:43)
[2023-07-11] MEDS: DOCUSATE 100 MG CAP PO SCH (21:43)
[2023-07-11] MEDS: FUROSEMIDE 10 MG/ML 4 ML VIAL IV STA (21:49)
[2023-07-11] MEDS: ATORVASTATIN 20 MG TAB PO SCH (21:49)
[2023-07-11] MEDS: METOPROLOL TARTRATE 25 MG TAB PO SCH (21:49)
[2023-07-11 22:12] VITALS: TEMP 98.1
[2023-07-12] MEDS: LATANOPROST 0.005% OPHTH DROPS 2.5 ML BTL BOTH EYES SCH (00:09)
[2023-07-12 01:44] LABS: HCT 26.9 % (39.0-53.0); Hypochromasia Slight; MCH 28.8 pg (25.0-35.0); MCHC 31.5 g/dL (31.0-37.0); MCV 91.3 fL (80.0-100.0); Mean Platelet Volume 8.4; Platelet Count 306 k/uL (150-450); RBC 2.95 m/uL (4.30-5.90); RDW 14.8 % (11.5-15.5); WBC 12.3 k/uL (3.8-10.6)
[2023-07-12 01:48] LABS: HGB 8.5 gm/dL (13.0-17.5)
[2023-07-12 05:57] VITALS: BP 130/63; PULSE 72; RESP 18
[2023-07-12] MEDS: PANTOPRAZOLE 40 MG TABLET PO SCH (07:49)
[2023-07-12] MEDS ORDERED: LANSOPRAZOLE 15 MG PO SCH (09:00)
[2023-07-12] MEDS: lisinopriL 5 MG TAB PO SCH (09:03)
[2023-07-12] MEDS: THIAMINE 100 MG TAB PO SCH (09:03)
[2023-07-12] MEDS: FAMOTIDINE 20 MG TAB PO SCH (09:04)
[2023-07-12] MEDS: FERROUS SULFATE 325 MG TAB PO SCH (09:04)
[2023-07-12] MEDS: SENNOSIDES 8.6 MG TAB PO SCH (09:04)
[2023-07-12 09:24] LABS: HCT 26.5 % (39.0-53.0); HGB 8.9 gm/dL (13.0-17.5); Hypochromasia Slight; MCH 29.8 pg (25.0-35.0); MCHC 33.5 g/dL (31.0-37.0); MCV 89.2 fL (80.0-100.0); Mean Platelet Volume 8.2; Platelet Count 390 k/uL (150-450); RBC 2.98 m/uL (4.30-5.90); WBC 8.2 k/uL (3.8-10.6)
[2023-07-12 10:12] LABS: Band Neutrophils % 1 %; Eosinophils # (M) 0.25 k/uL (0-0.7); Lymphocytes # (M) 1.56 k/uL (1.0-4.8); Metamyelocytes # (M) 0.16 k/uL (0); Metamyelocytes % 2 %; Monocytes # (M) 1.07 k/uL (0-1.0); Neutrophils % (M) 64 %; Nucleated Red Blood Cells 0 /100 WBC (0-0); Total Cells Counted 200
[2023-07-12 10:14] LABS: ALT 29 U/L (4-49); AST 52 U/L (17-59); African American GFR (CKD) 55 (>60 ml/min/1.73 sqM); Albumin 2.7 g/dL (3.5-5.0); Alkaline Phosphatase 158 U/L (38-126); Anion Gap 9 mmol/L; Blood Urea Nitrogen 38 mg/dL (9-20); Calcium 8.5 mg/dL (8.4-10.2); Carbon Dioxide 23 mmol/L (22-30); Chloride 102 mmol/L (98-107); Glucose 126 mg/dL (74-99); Magnesium 1.6 mg/dL (1.6-2.3); Non-African American GFR(CKD) 48 (>60 ml/min/1.73 sqM); Phosphorus 3.3 mg/dL (2.5-4.5); Potassium 3.7 mmol/L (3.5-5.1); Sodium 134 mmol/L (137-145); Total Bilirubin 2.3 mg/dL (0.2-1.3); Total Protein 5.6 g/dL (6.3-8.2)
--- NOTE | 2023-07-12 11:18 | P.DS ---
Providers Date of admission: 07/11/23 16:26 Expected date of discharge: 07/12/23 Attending physician: Natalie Draper MD Primary care physician: Tierra Mcfarland DO Hospital Course: Discharge Diagnosis: Acute blood loss anemia. Patient's Eliquis was previously discontinued on 07/08/2023 status post left hip hemiarthroplasty, however patient continued to receive at facility and repeat labs revealed further decrease of hemoglobin down to 6.6. Eliquis was discontinued again and patient received 1 unit PRBCs. Hemoglobin is trended status post transfusion resulting at 8.5 and 8.9. Patient is free from any complaints at this time and is medically cleared to return to [facility] facility to complete rehab status post left hemiarthroplasty. Status post recent left unipolar hip hemiarthroplasty on 07/05/2023 History of CAD Hypertension Hyperlipidemia Hospital Course: : Patient is a very pleasant 88-year-old male with a past medical history of CAD, known left bundle branch block, hypertension, and hyperlipidemia. He was recently admitted to the hospital 07/04/2023 through 07/08/2023 secondary to fall from wheelchair resulting in a left femoral neck fracture. On 07/05/2023 patient underwent a left unipolar hip hemiarthroplasty by Dr. Liriano and was later discharged to [facility] for rehab. It appears Eliquis was discontinued on patient's last discharge however patient was still receiving at snf. Patient had repeat lab work completed and was found to have a low hemoglobin of 6.7 and sent to the emergency department for transfusion and further evaluation. Upon arrival to our facility patient underwent evaluation. Vital signs upon arrival show blood pressure 121/67, heart rate 76, respiratory rate 20, temp 97.6 F, and SpO2 of 100% on 4 L of oxygen. EKG was completed showing normal sinus rhythm with a left bundle branch block at 73 bpm. Labs completed and reviewed. CBC showing normocytic anemia with hemoglobin of 6.6. BMP showing hyponatremia with sodium of 131 and elevated renal function with BUN of 42, and creatinine of 1.47 with GFR of 42 (improved from previous hospitalization with last creatinine of 1.8). Blood glucose was 169. Magnesium slightly low at 1.7. Liver profile showing elevated alkaline phosphatase of 135 otherwise normal findings. Troponin was negative at less than 0.012. Patient admitted under our services. Patient's Eliquis was previously discontinued on 07/08/2023 status post left hip hemiarthroplasty, however patient continued to receive at facility and repeat labs revealed further decrease of hemoglobin down to 6.6. Eliquis was discontinued again and patient received 1 unit PRBCs. Hemoglobin is trended status post transfusion resulting at 8.5 and 8.9. Patient is free from any complaints at this time and has no signs of active bleeding, patient is medically cleared to return to [facility] facility to complete rehab status post left hemiarthroplasty. Physical exam: Vital signs reviewed and stable. General: Nontoxic, no distress and appears stated age. Derm: Skin warm and dry, normal coloration for ethnicity. Head: Atraumatic, normocephalic and symmetric. Eyes: EOMs intact, no lid lag, and anicteric sclera Mouth: no lip lesions, mucus membranes moist Cardiovascular: regular rate and rhythm with normal S1S2, no murmur, positive posterior tibial pulses bilaterally, and cap refill < 2 seconds. Lungs: Respirations even, regular, and unlabored on 2 L O2. Lungs diminished, no rhonchi, no rales, no wheezing, and no accessory muscle usage. Abdominal: soft, nontender to palpation, no guarding, no appreciable organomegaly Ext: No gross muscle atrophy, 1+ pitting bilateral lower extremity edema, no contractures. Movement and sensation intact. Minimal bruising noted to left lower thigh. No hematoma or large area of bruising noted to left hip. Post surgical incision intact, appears to be healing well with no drainage or signs of active bleeding. Neuro: Speech clear, face symmetrical and CN II-XII grossly intact with no noted focal neuro deficits Psych: Alert and oriented to person, place, time, and situation. Appropriate and pleasant affect. A total of 34 minutes of time were spent preparing this complex discharge summary. Pt was discharged on 07/12/2023 at 10:32 AM. Patient was seen independently by Nurse Practitioner. This document was prepared using [employer] dictation software. Please allow for errors in county nurse while rare they do occur. Sal Wright NP rendered care for this patient independently, reviewed the findings and plan as documented in the note above. I did not physically speak with or examine the patient on this date. Patient Condition at Discharge: Stable Plan - Discharge Summary New Discharge Prescriptions: Continue Latanoprost Ophth [Xalatan 0.005%] 1 drop BOTH EYES HS Thiamine [Vitamin B-1] 100 mg PO DAILY #30 tab Famotidine [Pepcid] 20 mg PO DAILY Albuterol Inhaler [Ventolin Hfa Inhaler] 2 puff INHALATION RT-Q6H PRN PRN Reason: Shortness Of Breath Magnesium Hydroxide [Milk of Magnesia] 2,400 mg PO DAILY PRN PRN Reason: Constipation Sennosides [Senokot] 8.6 mg PO DAILY Lansoprazole [Prevacid] 15 mg PO DAILY Acetaminophen Tab [Tylenol] 650 mg PO Q6HR PRN tab PRN Reason: Mild Pain Or Fever > 100.5 Docusate [Colace] 100 mg PO BID Metoprolol Tartrate [Lopressor] 25 mg PO BID@0700,1900 Pantoprazole [Protonix] 40 mg PO DAILY lisinopriL [Zestril] 5 mg PO DAILY #30 tab Atorvastatin [Lipitor] 20 mg PO HS Ferrous Sulfate [Iron (65 MG Elemental)] 325 mg PO DAILY #30 tab Menthol [Icy Hot] 1 patch TRANSDERM BID Changed HYDROcodone/APAP 5-325MG [[place] 5-325] 1 tab PO Q6HR PRN #6 tab PRN Reason: Pain Discontinued Apixaban [Eliquis] 2.5 mg PO BID@0700,1900 Discharge Medication List Latanoprost Ophth [Xalatan 0.005%] 1 drop BOTH EYES HS 01/02/17 [History] Thiamine [Vitamin B-1] 100 mg PO DAILY #30 tab 11/27/21 [Rx] lisinopriL [Zestril] 5 mg PO DAILY #30 tab 11/27/21 [Rx] Famotidine [Pepcid] 20 mg PO DAILY 08/29/22 [History] Albuterol Inhaler [Ventolin Hfa Inhaler] 2 puff INHALATION RT-Q6H PRN 10/27/22 [History] Atorvastatin [Lipitor] 20 mg PO HS 01/21/23 [History] Magnesium Hydroxide [Milk of Magnesia] 2,400 mg PO DAILY PRN 01/21/23 [History] Lansoprazole [Prevacid] 15 mg PO DAILY 07/03/23 [History] Sennosides [Senokot] 8.6 mg PO DAILY 07/03/23 [History] Acetaminophen Tab [Tylenol] 650 mg PO Q6HR PRN tab 07/08/23 [Rx] Ferrous Sulfate [Iron (65 MG Elemental)] 325 mg PO DAILY #30 tab 07/08/23 [Rx] Docusate [Colace] 100 mg PO BID 07/11/23 [History] Menthol [Icy Hot] 1 patch TRANSDERM BID 07/11/23 [History] Metoprolol Tartrate [Lopressor] 25 mg PO BID@0700,1900 07/11/23 [History] Pantoprazole [Protonix] 40 mg PO DAILY 07/11/23 [History] HYDROcodone/APAP 5-325MG [[place] 5-325] 1 tab PO Q6HR PRN #6 tab 07/12/23 [Rx] Follow up Appointment(s)/Referral(s): Tierra Mcfarland DO [Primary Care Provider] - 1-2 days Ambulatory/Diagnostic Orders: Complete Blood Count w/diff [LAB.AMB] Time Frame: 3 Days, Location: None Selected Activity/Diet/Wound Care/Special Instructions: Activity: As tolerated. Take breaks as needed. Diet: Heart healthy and carb consistent diet. Avoid salts, or foods with hidden salts such as canned or boxed foods and frozen dinners. Extra salt makes your heart work harder and traps the fluid in your body for longer. Special Instructions: Eliquis was discontinued on day of discharge 07/08/2023 and pt continued to recieve after going to [facility]. Please do not continue to administer this medication. Patient to follow-up outpatient with ANGELIKA Sexton at [facility] on 07/31/2023 at 1:30 PM as scheduled Thank you for allowing us to participate in your care, it was truly a pleasure having you for our patient!!! Discharge Disposition: TRANSFER TO SNF/ECF
== END 2023-07-12 12:28 | DRG 812 ==
LOC: EC 12:22 → 3SCARD 16:26
PROVIDERS: ADMIT Internal Medicine; ATTEND Internal Medicine
PROC: 30233N1 Transfusion of Nonautologous Red Blood Cells into Peripheral Vein, Percutaneous Approach (ICD-10-PCS; principal; 2023-07-11)
DX: D62 Acute posthemorrhagic anemia (principal); D68.9 Coagulation defect, unspecified; E87.1 Hypo-osmolality and hyponatremia; E78.5 Hyperlipidemia, unspecified; R74.8 Abnormal levels of other serum enzymes; F17.200 Nicotine dependence, unspecified, uncomplicated; M47.9 Spondylosis, unspecified; I10 Essential (primary) hypertension; I25.10 Atherosclerotic heart disease of native coronary artery without angina pectoris; I44.7 Left bundle-branch block, unspecified; Z96.642 Presence of left artificial hip joint; Z79.01 Long term (current) use of anticoagulants; Z79.899 Other long term (current) drug therapy; S72.002D Fracture of unspecified part of neck of left femur, subsequent encounter for closed fracture with routine healing; W05.0XXD Fall from non-moving wheelchair, subsequent encounter
CPT/HCPCS: 36415; 36430; 80053; 83735; 84100; 84484; 85025; 85027; 86850; 86900; 86901; 86920; 93005; 96361; 96374; 96375; 96376; 99285

== ENCOUNTER 2023-07-21 21:48 | Inpatient (IN) | payer MEDICARE, OTHER ==
--- NOTE | 2023-07-21 22:03 | ED ---
SOB HPI - General Stated Complaint: Difficulty Breathing Time Seen by Provider: 07/21/23 21:53 Source: patient, EMS Mode of arrival: EMS Limitations: physical limitation (Dyspnea) - History of Present Illness Initial Comments: patient is an 88-year-old man sent from snf to have evaluation for dyspnea. The patient reportedly was diagnosed earlier today with pneumonia and had been started on doxycycline. The patient also had been placed on nasal cannula oxygen set 4 L. When EMS was called and arrived they found the patient to have pulse oximetry less than 80, tachypnea can tachycardic. They placed the patient on BiPAP 100% oxygen and transported here. I 1 the patient the history is limited due to dyspnea but he does state he is having left hip pain. No ches t pain. Coughing with some occasional sputum. MD Complaint: shortness of breath -: unknown Consistency: constant Improves With: nothing Worsens With: nothing Known History Of: other (Recent pneumonia diagnosis) Treatments Prior to Arrival: NIPPV - Related Data Home Medications Medication Instructions Recorded Confirmed Latanoprost Ophth [Xalatan 0.005%] 1 drop BOTH EYES HS 01/02/17 07/22/23 Famotidine [Pepcid] 20 mg PO DAILY 08/29/22 07/22/23 Albuterol Inhaler [Ventolin Hfa 2 puff INHALATION RT-Q6H PRN 10/27/22 07/22/23 Inhaler] Atorvastatin [Lipitor] 20 mg PO HS 01/21/23 07/22/23 Magnesium Hydroxide [Milk of 2,400 mg PO DAILY PRN 01/21/23 07/22/23 Magnesia] Sennosides [Senokot] 8.6 mg PO DAILY 07/03/23 07/22/23 Docusate [Colace] 100 mg PO BID 07/11/23 07/22/23 Menthol [Icy Hot] 1 patch TRANSDERM BID 07/11/23 07/22/23 Metoprolol Tartrate [Lopressor] 12.5 mg PO BID@0700,1900 07/11/23 07/22/23 Pantoprazole [Protonix] 40 mg PO DAILY 07/11/23 07/22/23 Acetaminophen [Tylenol 8 Hour] 650 mg PO Q6H PRN 07/22/23 07/22/23 Doxycycline [Vibramycin] 100 mg PO BID@0700,1600 07/22/23 07/22/23 Ipratropium-Albuterol Nebulize 3 ml INHALATION RT-TID 07/22/23 07/22/23 [Duoneb 0.5 mg-3 mg/3 ml Soln] lisinopriL [Zestril] 2.5 mg PO DAILY@0700 07/22/23 07/22/23 Previous Rx's Medication Instructions Recorded Thiamine [Vitamin B-1] 100 mg PO DAILY #30 tab 11/27/21 Ferrous Sulfate [Iron (65 MG 325 mg PO DAILY #30 tab 07/08/23 Elemental)] HYDROcodone/APAP 5-325MG [[place] 1 tab PO Q6HR PRN #6 tab 07/12/23 5-325] Allergies Allergy/AdvReac Type Severity Reaction Status Date / Time No Known Allergies Allergy Verified 07/22/23 11:45 Review of Systems ROS Statement: Those systems with pertinent positive or pertinent negative responses have been documented in the HPI. ROS Other: All systems not noted in ROS Statement are negative. Limitations: ROS unobtainable due to patients medical condition Respiratory: Reports: cough, dyspnea Cardiovascular: Reports: edema. Denies: chest pain Gastrointestinal: Denies: abdominal pain, vomiting Genitourinary: Reports: other (Howard catheter present) Musculoskeletal: Reports: as per HPI, arthralgia (left hip pain) Skin: Denies: rash Neurological: Denies: headache Past Medical History Past Medical History: Coronary Artery Disease (CAD), Hyperlipidemia, Hypertension Additional Past Medical History / Comment(s): arthritis in back, cataracts History of Any Multi-Drug Resistant Organisms: MRSA Date of last positivie culture/infection: 01/23/23 MDRO Source:: Back Past Surgical History: Heart Catheterization, Hernia Repair, Tonsillectomy Additional Past Surgical History / Comment(s): colonoscopy, iban cataracts, wisdom teeth Past Anesthesia/Blood Transfusion Reactions: No Reported Reaction Past Psychological History: No Psychological Hx Reported Smoking Status: Light tobacco smoker Past Alcohol Use History: Occasional Past Drug Use History: None Reported - Past Family History Father Family Medical History: Cancer Additional Family Medical History / Comment(s): ca of lymph nodes General Exam General appearance: alert, in distress Head exam: Present: atraumatic, normocephalic Eye exam: Present: normal appearance. Absent: scleral icterus, conjunctival injection ENT exam: Present: mucous membranes dry Neck exam: Present: normal inspection, full ROM. Absent: tenderness Respiratory exam: Present: respiratory distress, rhonchi, accessory muscle use, decreased breath sounds. Absent: wheezes, chest wall tenderness Cardiovascular Exam: Present: regular rate, tachycardia, systolic murmur. Absent: diastolic murmur, rubs, gallop GI/Abdominal exam: Present: soft. Absent: distended, tenderness, guarding, rebound, rigid, mass Extremities exam: Present: normal capillary refill, other (old surgical incision lateral aspect left hip without abnormal erythema, warmth or drainage.) Back exam: Present: normal inspection Neurological exam: Present: alert. Absent: motor sensory deficit Skin exam: Present: warm, dry, intact, mottled. Absent: rash Course Vital Signs 07/21/23 07/21/23 07/21/23 21:50 22:00 22:05 Temperature 99.2 F Pulse Rate 120 H Pulse Rate [ Bilateral Radial] Pulse Rate [ Cut Out And Marking Machine Operator ] Respiratory 34 H 40 H Rate Blood Pressure 149/71 Blood Pressure [Left Arm] O2 Sat by Pulse 95 Oximetry Fraction of 100 Inspired Oxygen (FIO2) 07/21/23 07/21/23 07/21/23 22:17 22:21 23:15 Temperature 100.6 F H Pulse Rate 118 H Pulse Rate [ Bilateral Radial] Pulse Rate [ Cut Out And Marking Machine Operator ] Respiratory 40 H 40 H Rate Blood Pressure 102/60 Blood Pressure [Left Arm] O2 Sat by Pulse Oximetry Fraction of 100 Inspired Oxygen (FIO2) 07/22/23 07/22/23 07/22/23 00:09 00:29 00:55 Temperature 101 F H 97.9 F Pulse Rate 106 H Pulse Rate [ 98 Bilateral Radial] Pulse Rate [ Cut Out And Marking Machine Operator ] Respiratory 38 H 25 H Rate Blood Pressure 102/60 Blood Pressure 117/68 [Left Arm] O2 Sat by Pulse Oximetry Fraction of 40 Inspired Oxygen (FIO2) 07/22/23 07/22/23 07/22/23 01:40 02:15 02:32 Temperature 98.9 F Pulse Rate Pulse Rate [ Bilateral Radial] Pulse Rate [ Cut Out And Marking Machine Operator ] Respiratory 26 H Rate Blood Pressure Blood Pressure [Left Arm] O2 Sat by Pulse Oximetry Fraction of 100 Inspired Oxygen (FIO2) 07/22/23 07/22/23 07/22/23 03:58 04:00 04:26 Temperature 98.0 F Pulse Rate 77 Pulse Rate [ 95 Bilateral Radial] Pulse Rate [ Cut Out And Marking Machine Operator ] Respiratory 28 H 18 Rate Blood Pressure 127/63 Blood Pressure 115/78 [Left Arm] O2 Sat by Pulse 92 L Oximetry Fraction of 70 40 Inspired Oxygen (FIO2) 07/22/23 07/22/23 07/22/23 05:34 06:19 07:46 Temperature 96.8 F L Pulse Rate 80 82 77 Pulse Rate [ Bilateral Radial] Pulse Rate [ Cut Out And Marking Machine Operator ] Respiratory 18 16 20 Rate Blood Pressure 111/58 100/58 106/70 Blood Pressure [Left Arm] O2 Sat by Pulse 99 98 95 Oximetry Fraction of Inspired Oxygen (FIO2) 07/22/23 07/22/23 07/22/23 08:27 08:42 09:00 Temperature Pulse Rate 77 72 81 Pulse Rate [ Bilateral Radial] Pulse Rate [ Cut Out And Marking Machine Operator ] Respiratory 24 21 20 Rate Blood Pressure 131/89 Blood Pressure [Left Arm] O2 Sat by Pulse 93 L Oximetry Fraction of 70 Inspired Oxygen (FIO2) 07/22/23 07/22/23 07/22/23 10:30 11:17 11:18 Temperature Pulse Rate 77 76 Pulse Rate [ Bilateral Radial] Pulse Rate [ Cut Out And Marking Machine Operator ] Respiratory 18 24 Rate Blood Pressure 118/69 Blood Pressure [Left Arm] O2 Sat by Pulse 93 L Oximetry Fraction of 70 60 Inspired Oxygen (FIO2) 07/22/23 07/22/23 07/22/23 12:06 12:33 14:00 Temperature Pulse Rate 72 79 77 Pulse Rate [ Bilateral Radial] Pulse Rate [ Cut Out And Marking Machine Operator ] Respiratory 20 18 25 H Rate Blood Pressure 117/71 132/73 122/67 Blood Pressure [Left Arm] O2 Sat by Pulse 90 L 94 L 96 Oximetry Fraction of Inspired Oxygen (FIO2) 07/22/23 07/22/23 07/22/23 14:10 14:20 14:30 Temperature Pulse Rate 79 75 87 Pulse Rate [ Bilateral Radial] Pulse Rate [ Cut Out And Marking Machine Operator ] Respiratory 15 9 L 24 Rate Blood Pressure 110/59 110/59 110/59 Blood Pressure [Left Arm] O2 Sat by Pulse 97 98 98 Oximetry Fraction of Inspired Oxygen (FIO2) 07/22/23 07/22/23 07/22/23 14:40 14:50 15:00 Temperature Pulse Rate 80 77 70 Pulse Rate [ Bilateral Radial] Pulse Rate [ Cut Out And Marking Machine Operator ] Respiratory 21 16 10 L Rate Blood Pressure 125/66 125/66 125/66 Blood Pressure [Left Arm] O2 Sat by Pulse 98 98 95 Oximetry Fraction of Inspired Oxygen (FIO2) 07/22/23 07/22/23 07/22/23 15:01 15:10 15:20 Temperature Pulse Rate 74 68 65 Pulse Rate [ Bilateral Radial] Pulse Rate [ Cut Out And Marking Machine Operator ] Respiratory 13 14 14 Rate Blood Pressure 120/61 120/61 Blood Pressure [Left Arm] O2 Sat by Pulse 97 96 Oximetry Fraction of 60 Inspired Oxygen (FIO2) 07/22/23 07/22/23 07/22/23 15:30 15:40 15:50 Temperature Pulse Rate 66 70 73 Pulse Rate [ Bilateral Radial] Pulse Rate [ Cut Out And Marking Machine Operator ] Respiratory 19 14 11 L Rate Blood Pressure 120/61 83/54 83/54 Blood Pressure [Left Arm] O2 Sat by Pulse 96 98 98 Oximetry Fraction of Inspired Oxygen (FIO2) 07/22/23 07/22/23 07/22/23 16:00 16:10 16:20 Temperature Pulse Rate 75 75 75 Pulse Rate [ Bilateral Radial] Pulse Rate [ Cut Out And Marking Machine Operator ] Respiratory 25 H 20 20 Rate Blood Pressure 83/54 139/65 139/65 Blood Pressure [Left Arm] O2 Sat by Pulse 96 90 L 94 L Oximetry Fraction of Inspired Oxygen (FIO2) 07/22/23 07/22/23 07/22/23 16:30 16:40 16:50 Temperature Pulse Rate 68 76 68 Pulse Rate [ Bilateral Radial] Pulse Rate [ Cut Out And Marking Machine Operator ] Respiratory 20 18 16 Rate Blood Pressure 139/65 113/67 113/67 Blood Pressure [Left Arm] O2 Sat by Pulse 96 97 97 Oximetry Fraction of Inspired Oxygen (FIO2) 07/22/23 07/22/23 07/22/23 17:00 17:10 17:20 Temperature Pulse Rate 67 66 80 Pulse Rate [ Bilateral Radial] Pulse Rate [ Cut Out And Marking Machine Operator ] Respiratory 17 18 22 Rate Blood Pressure 113/67 95/56 95/56 Blood Pressure [Left Arm] O2 Sat by Pulse 97 100 100 Oximetry Fraction of Inspired Oxygen (FIO2) 07/22/23 07/22/23 07/22/23 17:29 17:30 17:40 Temperature 97.7 F Pulse Rate 80 72 95 Pulse Rate [ Bilateral Radial] Pulse Rate [ Cut Out And Marking Machine Operator ] Respiratory 17 18 20 Rate Blood Pressure 119/63 95/56 121/64 Blood Pressure [Left Arm] O2 Sat by Pulse 99 99 100 Oximetry Fraction of Inspired Oxygen (FIO2) 07/22/23 07/22/23 07/22/23 17:50 18:00 18:10 Temperature Pulse Rate 94 89 101 H Pulse Rate [ Bilateral Radial] Pulse Rate [ Cut Out And Marking Machine Operator ] Respiratory 13 7 L 5 L Rate Blood Pressure 121/64 121/64 121/72 Blood Pressure [Left Arm] O2 Sat by Pulse 98 99 97 Oximetry Fraction of Inspired Oxygen (FIO2) 07/22/23 07/22/23 07/22/23 18:20 18:30 18:40 Temperature Pulse Rate 102 H 111 H 88 Pulse Rate [ Bilateral Radial] Pulse Rate [ Cut Out And Marking Machine Operator ] Respiratory 16 18 14 Rate Blood Pressure 121/72 121/72 103/72 Blood Pressure [Left Arm] O2 Sat by Pulse 96 93 L 92 L Oximetry Fraction of Inspired Oxygen (FIO2) 07/22/23 07/22/23 07/22/23 18:50 19:00 19:10 Temperature Pulse Rate 103 H 114 H 134 H Pulse Rate [ Bilateral Radial] Pulse Rate [ Cut Out And Marking Machine Operator ] Respiratory 20 16 21 Rate Blood Pressure 103/72 103/72 115/89 Blood Pressure [Left Arm] O2 Sat by Pulse 95 95 93 L Oximetry Fraction of Inspired Oxygen (FIO2) 07/22/23 07/22/23 07/22/23 19:20 19:26 19:30 Temperature Pulse Rate 122 H 121 H 125 H Pulse Rate [ Bilateral Radial] Pulse Rate [ Cut Out And Marking Machine Operator ] Respiratory 13 29 H 14 Rate Blood Pressure 115/89 115/89 115/89 Blood Pressure [Left Arm] O2 Sat by Pulse 92 L 99 99 Oximetry Fraction of Inspired Oxygen (FIO2) 07/22/23 07/22/23 07/22/23 19:31 19:40 19:41 Temperature Pulse Rate 109 H 111 H 113 H Pulse Rate [ Bilateral Radial] Pulse Rate [ Cut Out And Marking Machine Operator ] Respiratory 23 Rate Blood Pressure 113/77 Blood Pressure [Left Arm] O2 Sat by Pulse 98 Oximetry Fraction of 40 Inspired Oxygen (FIO2) 07/22/23 07/22/23 07/22/23 19:50 19:51 20:00 Temperature Pulse Rate 101 H 109 H 103 H Pulse Rate [ Bilateral Radial] Pulse Rate [ Cut Out And Marking Machine Operator ] Respiratory 23 25 H Rate Blood Pressure 113/77 113/77 Blood Pressure [Left Arm] O2 Sat by Pulse 91 L 96 Oximetry Fraction of Inspired Oxygen (FIO2) 07/22/23 07/22/23 07/22/23 20:10 20:20 20:30 Temperature Pulse Rate 112 H 120 H 117 H Pulse Rate [ Bilateral Radial] Pulse Rate [ Cut Out And Marking Machine Operator ] Respiratory 17 12 20 Rate Blood Pressure 95/61 95/61 95/61 Blood Pressure [Left Arm] O2 Sat by Pulse 96 97 94 L Oximetry Fraction of Inspired Oxygen (FIO2) 07/22/23 07/22/23 07/22/23 20:38 20:40 20:50 Temperature Pulse Rate 112 H 123 H 115 H Pulse Rate [ Bilateral Radial] Pulse Rate [ Cut Out And Marking Machine Operator ] Respiratory 40 H 50 H 27 H Rate Blood Pressure 94/65 91/65 Blood Pressure [Left Arm] O2 Sat by Pulse 95 93 L 97 Oximetry Fraction of Inspired Oxygen (FIO2) 07/22/23 07/22/23 07/22/23 21:00 21:10 21:20 Temperature Pulse Rate 101 H 104 H 116 H Pulse Rate [ Bilateral Radial] Pulse Rate [ Cut Out And Marking Machine Operator ] Respiratory 28 H 40 H 30 H Rate Blood Pressure 91/65 107/82 107/82 Blood Pressure [Left Arm] O2 Sat by Pulse 96 81 L 84 L Oximetry Fraction of Inspired Oxygen (FIO2) 07/22/23 07/22/23 07/22/23 21:30 21:40 21:50 Temperature Pulse Rate 112 H 118 H 117 H Pulse Rate [ Bilateral Radial] Pulse Rate [ Cut Out And Marking Machine Operator ] Respiratory 17 27 H 26 H Rate Blood Pressure 107/82 114/86 114/86 Blood Pressure [Left Arm] O2 Sat by Pulse 83 L 96 96 Oximetry Fraction of Inspired Oxygen (FIO2) 07/22/23 07/22/23 07/23/23 22:00 23:38 02:57 Temperature Pulse Rate 116 H Pulse Rate [ Bilateral Radial] Pulse Rate [ Cut Out And Marking Machine Operator ] Respiratory 18 Rate Blood Pressure 114/86 Blood Pressure [Left Arm] O2 Sat by Pulse 91 L Oximetry Fraction of 40 40 Inspired Oxygen (FIO2) 07/23/23 07/23/23 07/23/23 07:47 07:56 08:06 Temperature Pulse Rate 91 98 100 Pulse Rate [ Bilateral Radial] Pulse Rate [ Cut Out And Marking Machine Operator ] Respiratory Rate Blood Pressure Blood Pressure [Left Arm] O2 Sat by Pulse 93 L Oximetry Fraction of Inspired Oxygen (FIO2) 07/23/23 07/23/23 07/23/23 09:05 11:10 11:41 Temperature 97.9 F Pulse Rate 102 H Pulse Rate [ Bilateral Radial] Pulse Rate [ 93 98 Cut Out And Marking Machine Operator ] Respiratory 18 18 Rate Blood Pressure Blood Pressure 96/61 123/72 [Left Arm] O2 Sat by Pulse 95 93 L Oximetry Fraction of Inspired Oxygen (FIO2) 07/23/23 11:55 Temperature Pulse Rate 99 Pulse Rate [ Bilateral Radial] Pulse Rate [ Cut Out And Marking Machine Operator ] Respiratory Rate Blood Pressure Blood Pressure [Left Arm] O2 Sat by Pulse Oximetry Fraction of Inspired Oxygen (FIO2) Procedures - Sepsis Sepsis Focused Exam #1 Sepsis Focused Exam Complete: Yes Vital Signs & RN Notes Reviewed: Yes Capillary Refill: < 2 Seconds: Fingers Peripheral Pulses: Normal: Radial (R) Skin Color: Flushed Respiratory Exam: rales, rhonchi Cardiovascular Exam: tachycardia Medical Decision Making - Medical Decision Making This patient is 88-year-old man who is sent in to have evaluation for dyspnea. He had chest x-ray which I interpreted as showing left lower lobe infiltrate. The patient will be admitted for pneumonia and suspected sepsis. Case discussed with admitting physician and treatment recommendations are incorporated. Antibiotics and fluids for ideal body weight. Was pt. sent in by a medical professional or institution (, PA, JEWELRY INSPECTOR, urgent care, hospital, or snf...) When possible be specific @ -[No] Did you speak to anyone other than the patient for history (EMS, parent, family, police, friend...)? What history was obtained from this source @ -[No] Did you review nursing and triage notes (agree or disagree)? Why? @ -[I reviewed and agree with nursing and triage notes] Were old charts reviewed (outside hosp., previous admission, EMS record, old EKG, old radiological studies, urgent care reports/EKG's, snf records)? Report findings @ -[No old charts were reviewed] Differential Diagnosis (chest pain, altered mental status, abdominal pain women, abdominal pain men, vaginal bleeding, weakness, fever, dyspnea, syncope, headache, dizziness, GI bleed, back pain, seizure, CVA, palpatations, mental health, musculoskeletal)? @ -Differential Dyspnea: Coronary syndrome, arrhythmia, tamponade, asthma, COPD, pulmonary embolism, pneumonia, pneumothorax, pulmonary effusion, anaphylaxis, diabetic ketoacidosis, flailed chest, pulmonary contusion, diaphragmatic rupture, anemia, neurom uscular, this is not meant to be an all-inclusive list. EKG interpreted by me (3pts min.). @ -[I interpreted as above] X-rays interpreted by me (1pt min.). @ -[Interpreted as above CT interpreted by me (1pt min.). @ -[None done] U/S interpreted by me (1pt. min.). @ -[None done] What testing was considered but not performed or refused? (CT, X-rays, U/S, labs)? Why? @ -[None] What meds were considered but not given or refused? Why? @ -[None] Did you discuss the management of the patient with other professionals (professionals i.e. , PA, JEWELRY INSPECTOR, lab, RT, psych nurse, home health care social worker, repairer typewriter, teacher, property utilization officer, ed case manager)? Give summary @ -[No] Was smoking cessation discussed for >3mins.? @ -[No] Was critical care preformed (if so, how long)? @ -[No] Were there social determinants of health that impacted care today? How? (Homelessness, low income, unemployed, alcoholism, drug addiction, transportation, low edu. Level, literacy, decrease access to med. care, senior living, rehab)? @ -[No] Was there de-escalation of care discussed even if they declined (Discuss DNR or withdrawal of care, Hospice)? DNR status @ -[No] What co-morbidities impacted this encounter? (DM, HTN, Smoking, COPD, CAD, Cancer, CVA, ARF, Chemo, Hep., AIDS, mental health diagnosis, sleep apnea, morbid obesity)? @ -[None] Was patient admitted / discharged? Hospital course, mention meds given and route, prescriptions, significant lab abnormalities, going to OR and other pertinent info. @ -[hospital course] Undiagnosed new problem with uncertain prognosis? @ -[No] Drug Therapy requiring intensive monitoring for toxicity (Heparin, Nitro, Insulin, Cardizem)? @ -[No] Were any procedures done? @ -[No] Diagnosis/symptom? @ -[acute pneumonia Acute, or Chronic, or Acute on Chronic? @ -[Acute Uncomplicated (without systemic symptoms) or Complicated (systemic symptoms)? @ -[Uncomplicated Side effects of treatment? @ -[No] Exacerbation, Progression, or Severe Exacerbation? @ -[No] Poses a threat to life or bodily function? How? (Chest pain, [place], [place], pneumonia, PE, COPD, DKA, ARF, appy, cholecystitis, CVA, Diverticulitis, Homicidal, Suicidal, threat to staff... and all critical care pts) @ -yes - Lab Data Result diagrams: 08/04/23 06:01 08/04/23 06:06 Lab Results 07/21/23 07/21/23 07/21/23 Range/Units 22:56 22:56 22:56 WBC 30.7 H (3.8-10.6) k/uL RBC 3.13 L (4.30-5.90) m/uL Hgb 8.9 L (13.0-17.5) gm/dL Hct 27.8 L (39.0-53.0) % MCV 88.8 (80.0-100.0) fL MCH 28.4 (25.0-35.0) pg MCHC 32.0 (31.0-37.0) g/dL RDW 15.2 (11.5-15.5) % Plt Count 708 H (150-450) k/uL MPV 8.0 Neutrophils % 94 % Lymphocytes % 1 % Monocytes % 3 % Eosinophils % 0 % Basophils % 0 % Neutrophils # 28.8 H (1.3-7.7) k/uL Lymphocytes # 0.3 L (1.0-4.8) k/uL Monocytes # 1.0 (0-1.0) k/uL Eosinophils # 0.0 (0-0.7) k/uL Basophils # 0.0 (0-0.2) k/uL Manual Slide Review Performed Hypochromasia Slight Crenated Cell Present PT 11.2 (10.0-12.5) sec INR 1.0 (<1.2) APTT 30.0 (22.0-30.0) sec D-Dimer 4.11 H (<0.60) mg/L FEU Sodium 130 L (137-145) mmol/L Potassium 4.9 (3.5-5.1) mmol/L Chloride 97 L (98-107) mmol/L Carbon Dioxide 19 L (22-30) mmol/L Anion Gap 14 mmol/L BUN 59 H (9-20) mg/dL Creatinine 2.09 H (0.66-1.25) mg/dL Est GFR (CKD-EPI)AfAm 32 (>60 ml/min/1.73 sqM) Est GFR (CKD-EPI)NonAf 27 (>60 ml/min/1.73 sqM) Glucose 106 H (74-99) mg/dL Lactic Ac Sepsis Rflx Plasma Lactic Acid Lucien (0.7-2.0) mmol/L Calcium 8.7 (8.4-10.2) mg/dL Magnesium 1.7 (1.6-2.3) mg/dL Total Bilirubin 3.5 H (0.2-1.3) mg/dL AST 66 H (17-59) U/L ALT 48 (4-49) U/L Alkaline Phosphatase 268 H (38-126) U/L Troponin I (0.000-0.034) ng/mL NT-Pro-B Natriuret Pep 5700 pg/mL Total Protein 6.2 L (6.3-8.2) g/dL Albumin 2.8 L (3.5-5.0) g/dL 07/21/23 07/21/23 07/22/23 Range/Units 22:56 22:56 00:36 WBC (3.8-10.6) k/uL RBC (4.30-5.90) m/uL Hgb (13.0-17.5) gm/dL Hct (39.0-53.0) % MCV (80.0-100.0) fL MCH (25.0-35.0) pg MCHC (31.0-37.0) g/dL RDW (11.5-15.5) % Plt Count (150-450) k/uL MPV Neutrophils % % Lymphocytes % % Monocytes % % Eosinophils % % Basophils % % Neutrophils # (1.3-7.7) k/uL Lymphocytes # (1.0-4.8) k/uL Monocytes # (0-1.0) k/uL Eosinophils # (0-0.7) k/uL Basophils # (0-0.2) k/uL Manual Slide Review Hypochromasia Crenated Cell PT (10.0-12.5) sec INR (<1.2) APTT (22.0-30.0) sec D-Dimer (<0.60) mg/L FEU Sodium (137-145) mmol/L Potassium (3.5-5.1) mmol/L Chloride (98-107) mmol/L Carbon Dioxide (22-30) mmol/L Anion Gap mmol/L BUN (9-20) mg/dL Creatinine (0.66-1.25) mg/dL Est GFR (CKD-EPI)AfAm (>60 ml/min/1.73 sqM) Est GFR (CKD-EPI)NonAf (>60 ml/min/1.73 sqM) Glucose (74-99) mg/dL Lactic Ac Sepsis Rflx Y Plasma Lactic Acid Lucien 3.1 H* (0.7-2.0) mmol/L Calcium (8.4-10.2) mg/dL Magnesium (1.6-2.3) mg/dL Total Bilirubin (0.2-1.3) mg/dL AST (17-59) U/L ALT (4-49) U/L Alkaline Phosphatase (38-126) U/L Troponin I 0.027 (0.000-0.034) ng/mL NT-Pro-B Natriuret Pep pg/mL Total Protein (6.3-8.2) g/dL Albumin (3.5-5.0) g/dL - EKG Data -: EKG Interpreted by Tx EKG shows normal: sinus rhythm, axis (normal), intervals (QRS duration 141 ms, prolonged consistent with the bundle-branch block. AR interval 158 ms, QTC 395 ms, both normal.), QRS complexes (Left bundle-branch block, also on old EKG.) Rate: tachycardia (rate 119 bpm) Disposition Clinical Impression: Pneumonia, Lactic acidosis Disposition: ADMITTED IP TO THIS HOSP Condition: Serious Is patient prescribed a controlled substance at d/c from ED?: No
[2023-07-21] MEDS: MORPHINE SULFATE 4 MG/ML SYRINGE IV STA (22:04)
--- NOTE | 2023-07-21 22:11 | XR ---
EXAMINATION TYPE: XR chest 1V portable DATE OF EXAM: 07/21/2023 COMPARISON: Prior chest x-ray July 06, 2023 HISTORY: Dyspnea. TECHNIQUE: Single frontal view of the chest is obtained. FINDINGS: There is new left lower lung increased opacity on the background chronic parenchymal jack es. Stable right basilar linear scarring and/or atelectasis. The cardiac silhouette size is stable an d within normal limits with atherosclerotic change in the aortic knob redemonstrated. The osseous s tructures are intact. IMPRESSION: Chronic parenchyma changes with new small left pleural effusion and left lower lobe acut e infiltrate and/or atelectasis.
[2023-07-21] MEDS: ACETAMINOPHEN TAB 325 MG TAB PO STA (23:14)
[2023-07-21] MEDS: SODIUM CHLORIDE 0.9% 1,000 ML IV ONE ×2 (23:23)
[2023-07-21 23:57] LABS: ALT 48 U/L (4-49); AST 66 U/L (17-59); African American GFR (CKD) 32 (>60 ml/min/1.73 sqM); Albumin 2.8 g/dL (3.5-5.0); Alkaline Phosphatase 268 U/L (38-126); Anion Gap 14 mmol/L; Basophils % (A) 0 %; Blood Urea Nitrogen 59 mg/dL (9-20); Calcium 8.7 mg/dL (8.4-10.2); Carbon Dioxide 19 mmol/L (22-30); Chloride 97 mmol/L (98-107); Eosinophils % (A) 0 %; Glucose 106 mg/dL (74-99); HCT 27.8 % (39.0-53.0); HGB 8.9 gm/dL (13.0-17.5); Hypochromasia Slight; Lymphocytes # (A) 0.3 k/uL (1.0-4.8); Lymphocytes % (A) 1 %; MCH 28.4 pg (25.0-35.0); MCV 88.8 fL (80.0-100.0); Magnesium 1.7 mg/dL (1.6-2.3); Monocytes % (A) 3 %; Neutrophils # (A) 28.8 k/uL (1.3-7.7); Neutrophils % (A) 94 %; Non-African American GFR(CKD) 27 (>60 ml/min/1.73 sqM); Platelet Count 708 k/uL (150-450); Potassium 4.9 mmol/L (3.5-5.1); RBC 3.13 m/uL (4.30-5.90); RDW 15.2 % (11.5-15.5); Sodium 130 mmol/L (137-145); Total Bilirubin 3.5 mg/dL (0.2-1.3); Total Protein 6.2 g/dL (6.3-8.2); WBC 30.7 k/uL (3.8-10.6)
[2023-07-22 00:06] LABS: NT-Pro-B-Type Natriuretic Pept 5700 pg/mL; Prothrombin Time 11.2 sec (10.0-12.5)
[2023-07-22] MEDS: SODIUM CHLORIDE 0.9% 1,000 ML IV STA ×2 (00:18→03:16)
[2023-07-22 01:08] LABS: Crenated RBC Present
[2023-07-22] MEDS: AZITHROMYCIN 500 MG TAB PO STA (01:26)
[2023-07-22] MEDS: ENOXAPARIN 80 MG/0.8 ML SYRINGE SQ STA (01:27)
--- NOTE | 2023-07-22 01:40 | US ---
EXAMINATION TYPE: US venous doppler duplex LE LT DATE OF EXAM: 07/22/2023 1:26 AM COMPARISON: NONE CLINICAL INDICATION: Male, 88 years old with history of Leg edema; Leg edema per order. Patient is po or historian. SIDE PERFORMED: Left TECHNIQUE: The lower extremity deep venous system is examined utilizing real time linear array sonog linda with graded compression, doppler sonography and color-flow sonography. VESSELS IMAGED: Common Femoral Vein Deep Femoral Vein Greater Saphenous Vein * Femoral Vein Popliteal Vein Small Saphenous Vein * Proximal Calf Veins (* superficial vessels) Exam is limited due to patient's pain level and limited mobility. Left Leg: CFV, GSV, femoral vein prox-mid, and DFV appear to compress incompletely. *Question chron ic thrombus along vessel wall? All veins show color flow within. Popliteal and prox calf veins appear negative for DVT. Patient cannot tolerate compression of distal femoral vein. Edema noted posterior left knee. IMPRESSION: Suboptimal study. Long segment left lower extremity DVT is present. Findings reflect district gauger varghese clot or partial occlusive thrombus. Correlate clinically. Mild to moderate Diffuse subcutaneous e bill is seen on images obtained.
[2023-07-22] MEDS: MORPHINE SULFATE 4 MG/ML SYRINGE IV STA (02:35)
[2023-07-22 03:21] LABS: ABG Base Excess -4.6 mmol/L; ABG HCO3 21 mmol/L (21-25); ABG PCO2 39 mmHg (35-45); ABG PH 7.35 (7.35-7.45); ABG PO2 183 mmHg (83-108); ABG TCO2 22 mmol/L (19-24); Allen Test Performed? Yes
[2023-07-22] MEDS ORDERED: HEPARIN SODIUM 1,000 UN/ML (10ML VL) IV PRN (06:34)
--- NOTE | 2023-07-22 07:18 | P.CNPUL ---
History of Present Illness Consult date: 07/22/23 Requesting physician: Tank Archuleta Reason for consult: other (Pneumonia) Chief complaint: Acute dyspnea History of present illness: Patient is an 88-year-old male with past medical history significant for hypertension, hyperlipidemia, paroxysmal atrial fibrillation previously anticoagulated on Eliquis, frequent falls. Patient recently fell from his wheelchair and had sustained a left hip fracture. He underwent a left hip cemented unipolar hemiarthroplasty on 07/05/2023. He was then discharged back to his extended care facility. Patient was sent back in from his ECF yesterday for evaluation of acute dyspnea. He was reportedly diagnosed with pneumonia earlier in the day, and started on doxycycline. When EMS arrived to the facility, he was hypoxic with an SpO2 of less than 80%. He was also tachypneic and tachycardic and in respiratory distress. He was transferred to our facility on BiPAP. He is currently sitting up in bed, in some respiratory distress. On BiPAP with settings 12/6 and FiO2 of 100%. Respiratory rate is in the mid 30s and tidal volumes are greater than 800. He is unable to provide any information at this time. There is accessory muscle use. ABG done on above-mentioned settings showed a PaO2 of 183, pCO2 of 39, pH of 7.35. Chest x-ray shows a left lower lobe infiltrate and or atelectasis and small left-sided pleural effusion, possibly parapneumonic. CBC on arrival: WBC count of 30.7, hemoglobin 8.9, hematocrit 27.8, platelets 708. CMP on arrival: Sodium 130, potassium 4.9, chloride 97, serum bicarb 19, BUN 59, creatinine 2.09, glucose 106. Normal saline infusing at 130 MLS per hour. LFTs mildly elevated. Troponin 0.027. NT proBNP 5700. There is a component of acute on chronic kidney injury. Negative for influenza, RSV, COVID. Patient's D-dimer was elevated. For this reason a venous Doppler of the lower extremities was ordered, and the patient was found to have a left lower extremity DVT. Patient was previously anticoagulated on Eliquis, however, this has been stopped after his most recent fall and hip fracture. Left hip incision is approximated and clean and dry. No drainage. Hemoglobin is stable at 8.9 g/dL. Patient denies any bright red blood, melanotic stools, or hematemesis. Patient's respiratory status is currently labile, will continue to closely monitor. Patient may need transfer to the intensive care unit. Review of Systems ROS unobtainable: due to mental status Past Medical History Past Medical History: Coronary Artery Disease (CAD), Hyperlipidemia, Hypertension Additional Past Medical History / Comment(s): arthritis in back, cataracts History of Any Multi-Drug Resistant Organisms: MRSA Date of last positivie culture/infection: 01/23/23 MDRO Source:: Back Past Surgical History: Heart Catheterization, Hernia Repair, Tonsillectomy Additional Past Surgical History / Comment(s): colonoscopy, iban cataracts, wisdom teeth Past Anesthesia/Blood Transfusion Reactions: No Reported Reaction Past Psychological History: No Psychological Hx Reported Smoking Status: Light tobacco smoker Past Alcohol Use History: Occasional Past Drug Use History: None Reported - Past Family History Father Family Medical History: Cancer Additional Family Medical History / Comment(s): ca of lymph nodes Medications and Allergies Home Medications Medication Instructions Recorded Confirmed Type Latanoprost Ophth [Xalatan 0.005%] 1 drop BOTH EYES HS 01/02/17 07/11/23 History Thiamine [Vitamin B-1] 100 mg PO DAILY #30 tab 11/27/21 07/11/23 Rx lisinopriL [Zestril] 5 mg PO DAILY #30 tab 11/27/21 07/11/23 Rx Famotidine [Pepcid] 20 mg PO DAILY 08/29/22 07/11/23 History Albuterol Inhaler [Ventolin Hfa 2 puff INHALATION RT-Q6H PRN 10/27/22 07/11/23 History Inhaler] Atorvastatin [Lipitor] 20 mg PO HS 01/21/23 07/11/23 History Magnesium Hydroxide [Milk of 2,400 mg PO DAILY PRN 01/21/23 07/11/23 History Magnesia] Lansoprazole [Prevacid] 15 mg PO DAILY 07/03/23 07/11/23 History Sennosides [Senokot] 8.6 mg PO DAILY 07/03/23 07/11/23 History Acetaminophen Tab [Tylenol] 650 mg PO Q6HR PRN tab 07/08/23 07/11/23 Rx Ferrous Sulfate [Iron (65 MG 325 mg PO DAILY #30 tab 07/08/23 07/11/23 Rx Elemental)] Docusate [Colace] 100 mg PO BID 07/11/23 07/11/23 History Menthol [Icy Hot] 1 patch TRANSDERM BID 07/11/23 07/11/23 History Metoprolol Tartrate [Lopressor] 25 mg PO BID@0700,1900 07/11/23 07/11/23 History Pantoprazole [Protonix] 40 mg PO DAILY 07/11/23 07/11/23 History HYDROcodone/APAP 5-325MG [Alta 1 tab PO Q6HR PRN #6 tab 07/12/23 Rx 5-325] Allergies Allergy/AdvReac Type Severity Reaction Status Date / Time No Known Allergies Allergy Verified 07/03/23 22:16 Physical Exam Vitals: Vital Signs Temp Pulse Resp BP Pulse Ox FiO2 07/22/23 06:19 82 16 100/58 98 07/22/23 05:34 80 18 111/58 99 07/22/23 04:26 77 18 127/63 07/22/23 03:58 70 07/22/23 02:15 98.9 F 07/22/23 01:40 100 07/22/23 00:29 106 H 38 H 102/60 07/22/23 00:09 101 F H 07/21/23 23:15 118 H 40 H 102/60 07/21/23 22:21 100.6 F H 40 H 07/21/23 22:17 100 07/21/23 22:05 40 H 07/21/23 22:00 100 07/21/23 21:50 99.2 F 120 H 34 H 149/71 95 Intake and Output 07/21/23 07/21/23 07/22/23 14:59 22:59 06:59 Other: Weight 81.193 kg GENERAL EXAM: Anxious, 88-year-old male, currently on BiPAP, tachypneic and tachycardic, appears to be in some respiratory distress. HEAD: Normocephalic and atraumatic EYES: Normal reaction of pupils, equal size. NOSE: Clear with pink turbinates. THROAT: No erythema or exudates. NECK: No masses, no JVD. CHEST: No chest wall deformity. LUNGS: Equal air entry with left lower lobe inspiratory crackles and scattered rhonchi/wheezing. On BiPAP with settings 12/6 and FiO2 of 100%. Significant conversational dyspnea, unable to speak more than 1-2 words at a time. There is accessory muscle use. CVS: S1 and S2 normal with no audible murmur, regular rhythm. No extra heart sounds. Tachycardic. ABDOMEN: No hepatosplenomegaly, active bowel sounds, no guarding or rigidity. SPINE: No scoliosis or deformity SKIN: No rashes CENTRAL NERVOUS SYSTEM: No focal deficits, tone is normal in all 4 extremities. EXTREMITIES: There is no peripheral edema, clubbing, or cyanosis. Peripheral pulses are intact. Left hip incision is approximated, clean and dry, no drainage. Results - Laboratory Findings CBC and BMP: 07/21/23 22:56 07/21/23 22:56 ABG ABG pH 7.35 (7.35-7.45) 07/22/23 03:18 ABG pCO2 39 mmHg (35-45) 07/22/23 03:18 ABG pO2 183 mmHg (83-108) H 07/22/23 03:18 ABG O2 Saturation 99.0 % (94-97) H 07/22/23 03:18 PT/INR, D-dimer PT 11.2 sec (10.0-12.5) 07/21/23 22:56 INR 1.0 (<1.2) 07/21/23 22:56 D-Dimer 4.11 mg/L FEU (<0.60) H 07/21/23 22:56 Abnormal lab findings: Abnormal Labs 07/21/23 07/21/23 07/21/23 22:56 22:56 22:56 WBC 30.7 H RBC 3.13 L Hgb 8.9 L Hct 27.8 L Plt Count 708 H Neutrophils # 28.8 H Lymphocytes # 0.3 L D-Dimer 4.11 H ABG pO2 ABG O2 Saturation Sodium 130 L Chloride 97 L Carbon Dioxide 19 L BUN 59 H Creatinine 2.09 H Glucose 106 H Plasma Lactic Acid Lucien Total Bilirubin 3.5 H AST 66 H Alkaline Phosphatase 268 H Total Protein 6.2 L Albumin 2.8 L 07/21/23 07/22/23 22:56 03:18 WBC RBC Hgb Hct Plt Count Neutrophils # Lymphocytes # D-Dimer ABG pO2 183 H ABG O2 Saturation 99.0 H Sodium Chloride Carbon Dioxide BUN Creatinine Glucose Plasma Lactic Acid Lucien 3.1 H* Total Bilirubin AST Alkaline Phosphatase Total Protein Albumin - Diagnostic Findings Chest x-ray: image reviewed Assessment and Plan Assessment: Acute hypoxemic respiratory failure, possibly multifactorial, secondary to acute COPD exacerbation and possible left-sided community-acquired pneumonia and left- sided pleural effusion, possibly parapneumonic. Acute leukocytosis, possibly secondary to above Left lower extremity DVT Frequent falls, with recent left hip femoral neck fracture, status/post left hip cemented unipolar hemiarthroplasty on 07/05/2023 History of fall with multiple left-sided rib fractures and pulmonary contusion History of paroxysmal atrial fibrillation, Eliquis has been stopped Normocytic normochromic anemia, hemoglobin stable from recent hospital admission. Acute on chronic kidney disease History of thoracic level wound/cellulitis, isolated organism at that time was MRSA History of hyperlipidemia History of hypertension History of former tobacco dependence Chronic obstructive pulmonary disease History of alcoholism Plan: Patient's medications, labs, chest x-ray reviewed Continue BiPAP support with current settings, may wean FiO2 as tolerated Patient is currently receiving empiric antibiotics Obtain chest ultrasound for further evaluation of left sided pleural effusion Start patient on combination of DuoNebs [id number], formoterol inhalation, budesonide inhalation, and IV Solu-Medrol Started the patient on high intensity heparin protocol for his left lower extremity DVT VQ scan is planned for later this morning Fall precautions I did go back and reevaluate the patient, he seems much more comfortable on current BiPAP settings. He is going to be admitted to the cardiac stepdown unit. Will monitor the patient closely, as his respiratory status remains labile, and is at high risk for intubation. Prognosis is guarded. I have personally seen and examined the patient, performed the documentation and the assessment and plan as written. Number of minutes spent on the visit:20 Time with Patient: Greater than 30
[2023-07-22 07:51] LABS: Basophils # (A) 0.1 k/uL (0-0.2); Basophils % (A) 0 %; Eosinophils % (A) 0 %; HCT 24.9 % (39.0-53.0); HGB 7.6 gm/dL (13.0-17.5); Hypochromasia Marked; INR 1.1 (<1.2); Lymphocytes # (A) 0.5 k/uL (1.0-4.8); Lymphocytes % (A) 2 %; MCHC 30.5 g/dL (31.0-37.0); MCV 91.6 fL (80.0-100.0); Mean Platelet Volume 7.8; Monocytes # (A) 1.5 k/uL (0-1.0); Monocytes % (A) 5 %; Neutrophils # (A) 26.6 k/uL (1.3-7.7); Neutrophils % (A) 91 %; Partial Thromboplastin Time 33.1 sec (22.0-30.0); Platelet Count 525 k/uL (150-450); RBC 2.72 m/uL (4.30-5.90); WBC 29.2 k/uL (3.8-10.6)
[2023-07-22] MEDS: HEPARIN SODIUM 1,000 UN/ML (10ML VL) IV ONE (07:51)
--- NOTE | 2023-07-22 07:51 | US ---
EXAMINATION TYPE: US chest DATE OF EXAM: 07/22/2023 COMPARISON: NONE CLINICAL INDICATION: Male, 88 years old with history of left sided pleural effusion; left pleural eff usion TECHNIQUE: Targeted ultrasound of the posterior lower left EXAM MEASUREMENTS: Left Pleural Effusion pocket size: 4.2 cm - lung noted within Left skin surface to fluid distance: 2.3 cm Technical limitations, patient unable to sit forward on this own Left side marked for possible thoracentesis outside the dept. Pulmonologists are able to review the images in the patient?s EMR. IMPRESSIONS: As above
[2023-07-22] MEDS: HEPARIN SOD,PORK IN 0.45% NACL 25,000 UNIT in 0.45% NACL 1 250ML.BAG IV SCH (07:52)
[2023-07-22] MEDS: methylPREDNISolone SOD SUCCI 125 MG/2 ML VIAL IV SCH (07:53)
[2023-07-22] MEDS: PANTOPRAZOLE 40 MG/10 ML VIAL IVP SCH (08:00)
[2023-07-22] MEDS: FORMOTEROL FUMARATE 20 MCG/2 ML NEBU INHALATION SCH (08:30)
[2023-07-22] MEDS: BUDESONIDE 1 MG/2 ML NEBU INHALATION SCH (08:30)
[2023-07-22] MEDS: IPRATROPIUM-ALBUTEROL 3 ML NEB INHALATION SCH (08:30)
[2023-07-22 08:48] LABS: Poikilocytosis (M) Present
[2023-07-22] MEDS ORDERED: VANCOMYCIN IV PER PHARMACY 1 EACH MISC MISCELLANE PRN (13:27)
[2023-07-22] MEDS: VANCOMYCIN 1,500 MG in SODIUM CHLORIDE 0.9% 500 ML 500 ML IVPB ONE (14:01)
[2023-07-22] MEDS: PIPERACILLIN-TAZOBACTAM 3.375 GM in SODIUM CHLORIDE 0.9% 100 ML IVPB SCH (17:28)
--- NOTE | 2023-07-22 17:40 | P.CNPUL ---
History of Present Illness Consult date: 07/22/23 Reason for consult: dyspnea, pneumonia History of present illness: Patient is an 88-year-old male with past medical history significant for hype rtension, hyperlipidemia, paroxysmal atrial fibrillation previously anticoagulated on Eliquis, frequent falls. Patient recently fell from his wheelchair and had sustained a left hip fracture. He underwent a left hip cemented unipolar hemiarthroplasty on 07/05/2023. He was then discharged back to his extended care facility. Patient was sent back in from his ECF yesterday for evaluation of acute dyspnea. He was reportedly diagnosed with pneumonia earlier in the day, and started on doxycycline. When EMS arrived to the facility, he was hypoxic with an SpO2 of less than 80%. He was also tachypneic and tachycardic and in respiratory distress. He was transferred to our facility on BiPAP. He is currently sitting up in bed, in some respiratory distress. On BiPAP with settings 12/6 and FiO2 of 100%. Respiratory rate is in the mid 30s and tidal volumes are greater than 800. He is unable to provide any information at this time. There is accessory muscle use. ABG done on above-mentioned settings showed a PaO2 of 183, pCO2 of 39, pH of 7.35. Chest x-ray shows a left lower lobe infiltrate and or atelectasis and small left-sided pleural effusion, possibly parapneumonic. CBC on arrival: WBC count of 30.7, hemoglobin 8.9, hematocrit 27.8, platelets 708. CMP on arrival: Sodium 130, potassium 4.9, chloride 97, serum bicarb 19, BUN 59, creatinine 2.09, glucose 106. Normal saline infusing at 130 MLS per hour. LFTs mildly elevated. Troponin 0.027. NT proBNP 5700. There is a component of acute on chronic kidney injury. Negative for influenza, RSV, COVID. Patient's D-dimer was elevated. For this reason a venous Doppler of the lower extremities was ordered, and the patient was found to have a left lower extremity DVT. Patient was previously anticoagulated on Eliquis, however, this has been stopped after his most recent fall and hip fracture. Left hip incision is approximated and clean and dry. No drainage. Hemoglobin is stable at 8.9 g/dL. Patient denies any bright red blood, melanotic stools, or hematemesis. Patient's respiratory status is currently labile, will continue to closely monitor. Patient may need transfer to the intensive care unit. In the emergency department and I had a lengthy discussion with the . The patient is currently on a BiPAP and is tolerating the BiPAP reasonably well with generation of adequate tidal volume above 500. No significant tachypnea. The patient is on a pressure setting of 12/6 and a meters of water and FiO2 has been weaned down.The white cell count from today is 29 with a hemoglobin of 7.6 and a platelet count of 527. Blood gases show a pH of 7.35 with a pCO2 of 39 and pO2 of 183 and this was on FiO2 of 100%. Viral screen has been negative and the procalcitonin level is at 4.2. BUN is at 69 with a creatinine of 2.09. Cultures were sent and the results are still pending for now. The chest x-ray showed a new area of consolidation of the left lower lobe in addition to a small left-sided pleural effusion. Ultrasound of the chest was also ordered and the results were consistent with a small left-sided pleural effusion with a 4.2 cm pocket. 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 Noted the patient was on anticoagulation with Eliquis in the past and this anticoagulation was discontinued because of his frequent falls. Noted the procalcitonin level is elevated at 4.2 Review of Systems Constitutional: Reports fatigue, Reports weakness Eyes: denies as per HPI, denies blurred vision, denies bulging eye, denies decreased vision, denies diplopia, denies discharge, denies dry eye, denies irritation, denies itching, denies pain, denies photophobia, denies loss of peripheral vision, denies loss of vision, denies tunnel vision/blind spots Ears: deny: decreased hearing, ear discharge, earache, tinnitus Ears, nose, mouth and throat: Reports as per HPI Breasts: absent: as per HPI, gynecomastia Cardiovascular: Reports chest pain, Reports decreased exercise tolerance Respiratory: Reports as per HPI Gastrointestinal: Reports as per HPI Genitourinary: Reports as per HPI Musculoskeletal: Reports frequent falls Musculoskeletal: absent: ankle pain, ankle stiffness, ankle swelling Integumentary: Reports as per HPI Neurological: Reports as per HPI, Reports gait dysfunction Psychiatric: Reports as per HPI Endocrine: Reports as per HPI Hematologic/Lymphatic: Reports as per HPI Allergic/Immunologic: Reports as per HPI Past Medical History Past Medical History: Coronary Artery Disease (CAD), Hyperlipidemia, Hypertension Additional Past Medical History / Comment(s): arthritis in back, cataracts History of Any Multi-Drug Resistant Organisms: MRSA Date of last positivie culture/infection: 01/23/23 MDRO Source:: Back Past Surgical History: Heart Catheterization, Hernia Repair, Tonsillectomy Additional Past Surgical History / Comment(s): colonoscopy, iban cataracts, wisdom teeth Past Anesthesia/Blood Transfusion Reactions: No Reported Reaction Past Psychological History: No Psychological Hx Reported Smoking Status: Light tobacco smoker Past Alcohol Use History: Occasional Past Drug Use History: None Reported - Past Family History Father Family Medical History: Cancer Additional Family Medical History / Comment(s): ca of lymph nodes Medications and Allergies Home Medications Medication Instructions Recorded Confirmed Type Latanoprost Ophth [Xalatan 0.005%] 1 drop BOTH EYES HS 01/02/17 07/22/23 History Thiamine [Vitamin B-1] 100 mg PO DAILY #30 tab 11/27/21 07/22/23 Rx Famotidine [Pepcid] 20 mg PO DAILY 08/29/22 07/22/23 History Albuterol Inhaler [Ventolin Hfa 2 puff INHALATION RT-Q6H PRN 10/27/22 07/22/23 History Inhaler] Atorvastatin [Lipitor] 20 mg PO HS 01/21/23 07/22/23 History Magnesium Hydroxide [Milk of 2,400 mg PO DAILY PRN 01/21/23 07/22/23 History Magnesia] Sennosides [Senokot] 8.6 mg PO DAILY 07/03/23 07/22/23 History Ferrous Sulfate [Iron (65 MG 325 mg PO DAILY #30 tab 07/08/23 07/22/23 Rx Elemental)] Docusate [Colace] 100 mg PO BID 07/11/23 07/22/23 History Menthol [Icy Hot] 1 patch TRANSDERM BID 07/11/23 07/22/23 History Metoprolol Tartrate [Lopressor] 12.5 mg PO BID@0700,1900 07/11/23 07/22/23 History Pantoprazole [Protonix] 40 mg PO DAILY 07/11/23 07/22/23 History HYDROcodone/APAP 5-325MG [[place] 1 tab PO Q6HR PRN #6 tab 07/12/23 07/22/23 Rx 5-325] Acetaminophen [Tylenol 8 Hour] 650 mg PO Q6H PRN 07/22/23 07/22/23 History Doxycycline [Vibramycin] 100 mg PO BID@0700,1600 07/22/23 07/22/23 History Ipratropium-Albuterol Nebulize 3 ml INHALATION RT-TID 07/22/23 07/22/23 History [Duoneb 0.5 mg-3 mg/3 ml Soln] lisinopriL [Zestril] 2.5 mg PO DAILY@0700 07/22/23 07/22/23 History Allergies Allergy/AdvReac Type Severity Reaction Status Date / Time No Known Allergies Allergy Verified 07/22/23 11:45 Physical Exam Vitals: Vital Signs Temp Pulse Resp BP Pulse Ox FiO2 07/22/23 16:00 71 20 113/67 96 07/22/23 15:01 74 13 60 07/22/23 15:00 71 18 120/61 97 07/22/23 12:33 79 18 132/73 94 L 07/22/23 12:06 72 20 117/71 90 L 07/22/23 11:18 60 07/22/23 11:17 76 24 70 07/22/23 10:30 77 18 118/69 93 L 07/22/23 09:00 81 20 131/89 93 L 07/22/23 08:42 72 21 07/22/23 08:27 77 24 70 07/22/23 07:46 96.8 F L 77 20 106/70 95 07/22/23 06:19 82 16 100/58 98 07/22/23 05:34 80 18 111/58 99 07/22/23 04:26 77 18 127/63 07/22/23 03:58 70 07/22/23 02:15 98.9 F 07/22/23 01:40 100 07/22/23 00:29 106 H 38 H 102/60 07/22/23 00:09 101 F H 07/21/23 23:15 118 H 40 H 102/60 07/21/23 22:21 100.6 F H 40 H 07/21/23 22:17 100 07/21/23 22:05 40 H 07/21/23 22:00 100 07/21/23 21:50 99.2 F 120 H 34 H 149/71 95 Intake and Output 07/22/23 07/22/23 07/22/23 06:59 14:59 22:59 Intake Total 109.613 Balance 109.613 Intake: Intake, IV Titration 109.613 Amount Heparin Sod,Pork in 0.45% 109.613 NaCl 25,000 unit In 0.45 % NaCl 1 250ml.bag @ 18 UNITS/KG/HR 14.615 mls/hr IV .[id number] [facility] Rx#: [id number] GENERAL EXAM: Anxious, 88-year-old male, currently on BiPAP, respiratory distress has improved while the patient being on BiPAP pressure of 12/6 and the patient has become more responsive. Noted the patient is quite debilitated at baseline. HEAD: Normocephalic and atraumatic EYES: Normal reaction of pupils, equal size. NOSE: Clear with pink turbinates. THROAT: No erythema or exudates. NECK: No masses, no JVD. CHEST: No chest wall deformity. LUNGS: Equal air entry with left lower lobe inspiratory crackles and scattered rhonchi/wheezing. On BiPAP with settings 12/6 and FiO2 of 100%. Significant conversational dyspnea, unable to speak more than 1-2 words at a time. There is accessory muscle use. CVS: S1 and S2 normal with no audible murmur, regular rhythm. No extra heart sounds. Tachycardic. ABDOMEN: No hepatosplenomegaly, active bowel sounds, no guarding or rigidity. SPINE: No scoliosis or deformity SKIN: No rashes CENTRAL NERVOUS SYSTEM: No focal deficits, tone is normal in all 4 extremities. EXTREMITIES: There is no peripheral edema, clubbing, or cyanosis. Peripheral pulses are intact. Left hip incision is approximated, clean and dry, no drainage. Results - Laboratory Findings CBC and BMP: 07/22/23 07:16 07/21/23 22:56 ABG ABG pH 7.35 (7.35-7.45) 07/22/23 03:18 ABG pCO2 39 mmHg (35-45) 07/22/23 03:18 ABG pO2 183 mmHg (83-108) H 07/22/23 03:18 ABG O2 Saturation 99.0 % (94-97) H 07/22/23 03:18 PT/INR, D-dimer PT 12.0 sec (10.0-12.5) 07/22/23 07:16 INR 1.1 (<1.2) 07/22/23 07:16 D-Dimer 4.11 mg/L FEU (<0.60) H 07/21/23 22:56 Abnormal lab findings: Abnormal Labs 07/21/23 07/21/23 07/21/23 22:56 22:56 22:56 WBC 30.7 H RBC 3.13 L Hgb 8.9 L Hct 27.8 L MCHC Plt Count 708 H Neutrophils # 28.8 H Lymphocytes # 0.3 L Monocytes # APTT D-Dimer 4.11 H ABG pO2 ABG O2 Saturation Sodium 130 L Chloride 97 L Carbon Dioxide 19 L BUN 59 H Creatinine 2.09 H Glucose 106 H Plasma Lactic Acid Lucien Total Bilirubin 3.5 H AST 66 H Alkaline Phosphatase 268 H Total Protein 6.2 L Albumin 2.8 L Procalcitonin 07/21/23 07/22/23 07/22/23 22:56 03:18 07:16 WBC 29.2 H RBC 2.72 L Hgb 7.6 L Hct 24.9 L MCHC 30.5 L Plt Count 525 H Neutrophils # 26.6 H Lymphocytes # 0.5 L Monocytes # 1.5 H APTT D-Dimer ABG pO2 183 H ABG O2 Saturation 99.0 H Sodium Chloride Carbon Dioxide BUN Creatinine Glucose Plasma Lactic Acid Lucien 3.1 H* Total Bilirubin AST Alkaline Phosphatase Total Protein Albumin Procalcitonin 07/22/23 07/22/23 07/22/23 07:16 07:16 14:40 WBC RBC Hgb Hct MCHC Plt Count Neutrophils # Lymphocytes # Monocytes # APTT 33.1 H 129.0 H* D-Dimer ABG pO2 ABG O2 Saturation Sodium Chloride Carbon Dioxide BUN Creatinine Glucose Plasma Lactic Acid Lucien Total Bilirubin AST Alkaline Phosphatase Total Protein Albumin Procalcitonin 4.20 H Assessment and Plan Plan: Acute hypoxemic respiratory failure, possibly multifactorial, secondary to acute COPD exacerbation and possible left-sided community-acquired pneumonia and left-sided pleural effusion, possibly parapneumonic. Possibility of a hospital- acquired pathogen cannot be completely ruled out. The patient is currently on a BiPAP pressure of 12/6 and FiO2 to be gradually weaned off. Acute left lower lobe pneumonia, most likely bacterial infection and the patient procalcitonin level is also elevated. Patient has leukocytosis. Consider bacterial infection the patient will be covered with broad-spectrum antibiotics for now. 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 Note that the patient was off his anticoagulants due to his frequent falls., Frequent falls, with recent left hip femoral neck fracture, status/post left hip cemented unipolar hemiarthroplasty on 07/05/2023 History of fall with multiple left-sided rib fractures and pulmonary contusion History of paroxysmal atrial fibrillation, Eliquis has been stopped Normocytic normochromic anemia, hemoglobin stable from recent hospital admission. Acute on chronic kidney disease, creatinine is higher than the baseline History of thoracic level wound/cellulitis, isolated organism at that time was MRSA History of hyperlipidemia History of hypertension History of former tobacco dependence Chronic obstructive pulmonary disease History of alcoholism Plan: Will gently hydrate the patient with normal citrate of 75 cc an hour Monitor renal function Continue IV heparin Continue BiPAP support with current settings, may wean FiO2 as tolerated, will plan to keep the BiPAP for the next 24 hours as the patient is being supported in the patient's ED broad-spectrum antibiotics. Patient is currently receiving empiric antibiotics, and the patient is currently on a combination of Zosyn and vancomycin and Zithromax Obtain chest ultrasound for further evaluation of left sided pleural effusion, based on my evaluation, the pleural fluid is small based on the chest x-ray and ultrasound findings Continue combination of DuoNebs [id number], formoterol inhalation, budesonide inhalation, and IV Solu-Medrol Started the patient on high intensity heparin protocol for his left lower extr emity DVT Will hold off on doing any further workup for possibility of pulmonary embolism at this point in time. The patient is currently on a BiPAP. Will give IV heparin and will proceed with a CT angiogram of the chest once the patient is more stable and renal function is further stabilized I had a lengthy discussion with the patient's . Based on his age and comorbidities and very poor performance and functional status, I thought it was reasonable to change his CODE STATUS to DNR/DNI and the was agreeable to that. He is going to be admitted to the cardiac stepdown unit. Will monitor the patient closely, Prognosis is guarded.
[2023-07-22] MEDS ORDERED: AZITHROMYCIN 500 MG in SODIUM CHLORIDE 0.9% 250 ML IVPB SCH (21:00)
--- NOTE | 2023-07-23 00:03 | P.HPIM ---
History of Present Illness H&P Date: 07/22/23 Chief Complaint: Shortness of breath Patient is a 88-year-old male with a past medical history of hypertension, hyperlipidemia, paroxysmal atrial fibrillation coronary artery disease nonobstructive, mild cardiomyopathy ejection fraction 45-50 %, history of right tobacco smoker and left hip hemiarthroplasty on 07/05/2023 due to mechanical fall. Patient presented from nursing facility due to worsening shortness of breath/dyspnea. Patient was diagnosed with pneumonia and was started on doxycycline. He was placed on oxygen at 4 L via nasal cannula and EMS was called due to hypoxia with pulse ox down to 80% and patient was tachycardic and tachypneic. Patient was placed on BiPAP by EMS and was transferred to ER. Otherwise patient denies any complaints of chest pain. Cough with occasional sputum production. Tmax 101.0 on admission. Patient was recently admitted to due to acute blood loss anemia from 07/11/2023 to 07/12/2023. requiring 1 unit PRBC transfusion. Eliquis was held and was discharged back to care home facility for rehab. Chest x-ray showed chronic parenchymal changes with new small left pleural effusion and left lower lobe acute infiltrates/atelectasis. EKG showed sinus tachycardia with possible left atrial enlargement. Lower extremity venous duplex showed suboptimal study. Long segment left lower extremity DVT is present. Findings reflect chronic clot or partially occlusive thrombus. Correlate clinically. Mild to moderate diffuse subcutaneous edema is seen on images obtained. Laboratory data showed WBC 13.7 hemoglobin 8.9 and platelets 708, D-dimer 4.11 ABG showed pH 7.35 pCO2 39, pO2 183 Sodium 130 potassium 4.9 chloride 97 bicarb is 19 BUN 59 and creatinine 2.09 and blood sugar 106 and lactic acid 3.1 total bilirubin 3.5 and alk phos 268, proBNP 5700, troponin 0.027 and albumin 2.8 Influenza A, B, RSV and COVID-19 PCR not detected. Review of Systems Complete review of systems could not be obtained from the patient. Patient is currently on BiPAP. Past Medical History Past Medical History: Coronary Artery Disease (CAD), Hyperlipidemia, Hypertensi on Additional Past Medical History / Comment(s): arthritis in back, cataracts History of Any Multi-Drug Resistant Organisms: MRSA Date of last positivie culture/infection: 01/23/23 MDRO Source:: Back Past Surgical History: Heart Catheterization, Hernia Repair, Tonsillectomy Additional Past Surgical History / Comment(s): colonoscopy, iban cataracts, wisdom teeth Past Anesthesia/Blood Transfusion Reactions: No Reported Reaction Past Psychological History: No Psychological Hx Reported Smoking Status: Light tobacco smoker Past Alcohol Use History: Occasional Past Drug Use History: None Reported - Past Family History Father Family Medical History: Cancer Additional Family Medical History / Comment(s): ca of lymph nodes Medications and Allergies Home Medications Medication Instructions Recorded Confirmed Type Latanoprost Ophth [Xalatan 0.005%] 1 drop BOTH EYES HS 01/02/17 07/22/23 History Thiamine [Vitamin B-1] 100 mg PO DAILY #30 tab 11/27/21 07/22/23 Rx Famotidine [Pepcid] 20 mg PO DAILY 08/29/22 07/22/23 History Albuterol Inhaler [Ventolin Hfa 2 puff INHALATION RT-Q6H PRN 10/27/22 07/22/23 History Inhaler] Atorvastatin [Lipitor] 20 mg PO HS 01/21/23 07/22/23 History Magnesium Hydroxide [Milk of 2,400 mg PO DAILY PRN 01/21/23 07/22/23 History Magnesia] Sennosides [Senokot] 8.6 mg PO DAILY 07/03/23 07/22/23 History Ferrous Sulfate [Iron (65 MG 325 mg PO DAILY #30 tab 07/08/23 07/22/23 Rx Elemental)] Docusate [Colace] 100 mg PO BID 07/11/23 07/22/23 History Menthol [Icy Hot] 1 patch TRANSDERM BID 07/11/23 07/22/23 History Metoprolol Tartrate [Lopressor] 12.5 mg PO BID@0700,1900 07/11/23 07/22/23 History Pantoprazole [Protonix] 40 mg PO DAILY 07/11/23 07/22/23 History HYDROcodone/APAP 5-325MG [Scobey 1 tab PO Q6HR PRN #6 tab 07/12/23 07/22/23 Rx 5-325] Acetaminophen [Tylenol 8 Hour] 650 mg PO Q6H PRN 07/22/23 07/22/23 History Doxycycline [Vibramycin] 100 mg PO BID@0700,1600 07/22/23 07/22/23 History Ipratropium-Albuterol Nebulize 3 ml INHALATION RT-TID 07/22/23 07/22/23 History [Duoneb 0.5 mg-3 mg/3 ml Soln] lisinopriL [Zestril] 2.5 mg PO DAILY@0700 07/22/23 07/22/23 History Allergies Allergy/AdvReac Type Severity Reaction Status Date / Time No Known Allergies Allergy Verified 07/22/23 11:45 Physical Exam Vitals: Vital Signs Temp Pulse Resp BP Pulse Ox FiO2 07/22/23 12:33 79 18 132/73 94 L 07/22/23 12:06 72 20 117/71 90 L 07/22/23 11:18 60 07/22/23 11:17 76 24 70 07/22/23 10:30 77 18 118/69 93 L 07/22/23 09:00 81 20 131/89 93 L 07/22/23 08:42 72 21 07/22/23 08:27 77 24 70 07/22/23 07:46 96.8 F L 77 20 106/70 95 07/22/23 06:19 82 16 100/58 98 07/22/23 05:34 80 18 111/58 99 07/22/23 04:26 77 18 127/63 07/22/23 03:58 70 07/22/23 02:15 98.9 F 07/22/23 01:40 100 07/22/23 00:29 106 H 38 H 102/60 07/22/23 00:09 101 F H 07/21/23 23:15 118 H 40 H 102/60 07/21/23 22:21 100.6 F H 40 H 07/21/23 22:17 100 07/21/23 22:05 40 H 07/21/23 22:00 100 07/21/23 21:50 99.2 F 120 H 34 H 149/71 95 Intake and Output 07/21/23 07/22/23 07/22/23 22:59 06:59 14:59 Other: Weight 81.193 kg PHYSICAL EXAMINATION: Patient is lying in the bed. No acute distress, awake alert and oriented.. On BiPAP. HEENT: Normocephalic. Neck is supple. Pupils reactive. Nostrils clear. Oral cavity is moist. Neck reveals no JVD, carotid bruits, or thyromegaly. CHEST EXAMINATION: Trachea is central. Symmetrical expansion. Left basilar coarse sounds. Mild expiratory wheeze.. CARDIAC: Normal S1, S2 with no gallops. No murmurs ABDOMEN: Soft. Bowel sounds normal. No organomegaly. No abdominal bruits. Extremities: reveal no edema. No clubbing or cyanosis Neurologically awake, alert, oriented x 2-3. No gross focal deficits noted Skin: No rash or skin lesions. Psychiatric: Coperative. Could not be assessed completely Musculoskeletal: No joint swelling or deformity. Results CBC & Chem 7: 07/22/23 07:16 07/21/23 22:56 Labs: Abnormal Lab Results - Last 24 Hours (Table) 07/21/23 07/21/23 07/21/23 Range/Units 22:56 22:56 22:56 WBC 30.7 H (3.8-10.6) k/uL RBC 3.13 L (4.30-5.90) m/uL Hgb 8.9 L (13.0-17.5) gm/dL Hct 27.8 L (39.0-53.0) % MCHC (31.0-37.0) g/dL Plt Count 708 H (150-450) k/uL Neutrophils # 28.8 H (1.3-7.7) k/uL Lymphocytes # 0.3 L (1.0-4.8) k/uL Monocytes # (0-1.0) k/uL APTT (22.0-30.0) sec D-Dimer 4.11 H (<0.60) mg/L FEU ABG pO2 (83-108) mmHg ABG O2 Saturation (94-97) % Sodium 130 L (137-145) mmol/L Chloride 97 L (98-107) mmol/L Carbon Dioxide 19 L (22-30) mmol/L BUN 59 H (9-20) mg/dL Creatinine 2.09 H (0.66-1.25) mg/dL Glucose 106 H (74-99) mg/dL Plasma Lactic Acid Lucien (0.7-2.0) mmol/L Total Bilirubin 3.5 H (0.2-1.3) mg/dL AST 66 H (17-59) U/L Alkaline Phosphatase 268 H (38-126) U/L Total Protein 6.2 L (6.3-8.2) g/dL Albumin 2.8 L (3.5-5.0) g/dL Procalcitonin (0.02-0.09) ng/mL 07/21/23 07/22/23 07/22/23 Range/Units 22:56 03:18 07:16 WBC 29.2 H (3.8-10.6) k/uL RBC 2.72 L (4.30-5.90) m/uL Hgb 7.6 L (13.0-17.5) gm/dL Hct 24.9 L (39.0-53.0) % MCHC 30.5 L (31.0-37.0) g/dL Plt Count 525 H (150-450) k/uL Neutrophils # 26.6 H (1.3-7.7) k/uL Lymphocytes # 0.5 L (1.0-4.8) k/uL Monocytes # 1.5 H (0-1.0) k/uL APTT (22.0-30.0) sec D-Dimer (<0.60) mg/L FEU ABG pO2 183 H (83-108) mmHg ABG O2 Saturation 99.0 H (94-97) % Sodium (137-145) mmol/L Chloride (98-107) mmol/L Carbon Dioxide (22-30) mmol/L BUN (9-20) mg/dL Creatinine (0.66-1.25) mg/dL Glucose (74-99) mg/dL Plasma Lactic Acid Lucien 3.1 H* (0.7-2.0) mmol/L Total Bilirubin (0.2-1.3) mg/dL AST (17-59) U/L Alkaline Phosphatase (38-126) U/L Total Protein (6.3-8.2) g/dL Albumin (3.5-5.0) g/dL Procalcitonin (0.02-0.09) ng/mL 07/22/23 07/22/23 Range/Units 07:16 07:16 WBC (3.8-10.6) k/uL RBC (4.30-5.90) m/uL Hgb (13.0-17.5) gm/dL Hct (39.0-53.0) % MCHC (31.0-37.0) g/dL Plt Count (150-450) k/uL Neutrophils # (1.3-7.7) k/uL Lymphocytes # (1.0-4.8) k/uL Monocytes # (0-1.0) k/uL APTT 33.1 H (22.0-30.0) sec D-Dimer (<0.60) mg/L FEU ABG pO2 (83-108) mmHg ABG O2 Saturation (94-97) % Sodium (137-145) mmol/L Chloride (98-107) mmol/L Carbon Dioxide (22-30) mmol/L BUN (9-20) mg/dL Creatinine (0.66-1.25) mg/dL Glucose (74-99) mg/dL Plasma Lactic Acid Lucien (0.7-2.0) mmol/L Total Bilirubin (0.2-1.3) mg/dL AST (17-59) U/L Alkaline Phosphatase (38-126) U/L Total Protein (6.3-8.2) g/dL Albumin (3.5-5.0) g/dL Procalcitonin 4.20 H (0.02-0.09) ng/mL Thrombosis Risk Factor Assmnt - DVT/VTE Prophylaxis DVT/VTE Prophylaxis: Pharmacologic Prophylaxis ordered Assessment and Plan Assessment: Acute hypoxemic respiratory failure due to left lower lobe pneumonia and left sided small pleural effusion and COPD. Patient is requiring BiPAP. Sepsis secondary to pneumonia Acute left lower extremity DVT. Elevated D-dimer level. CT PE could not be done due to elevated creatinine level. VQ scan was ordered to rule out PE. Acute kidney injury likely prerenal with possible ATN. CKD stage III. Hypovolemic hyponatremia Lactic acidosis 3.1 on admission History of mechanical fall status post left hip cemented unipolar hemiarthroplasty on 07/05/2023 Recent admission with anemia requiring blood transfusion 1 unit PRBC. Eliquis is on hold at the time Paroxysmal atrial fibrillation currently Eliquis was on hold. Mild cardiomyopathy with ejection fraction 45 to 50%. EF improved to 55 to 60% as per recent echocardiogram on 07/05/2023 Coronary artery disease nonobstructive Hypertension Hyperlipidemia History of tobacco use History of EtOH abuse GI prophylaxis with PPI Plan: Patient is currently on BiPAP. Continue with DuoNebs, IV Solu-Medrol 60 mg every 6 hourly. Patient was given azithromycin and ceftriaxone in the ER. Antibiotics changed to Zosyn and vancomycin. Procalcitonin level is elevated. Patient was started on heparin drip due to left lower extremity acute DVT. VQ scan was ordered due to elevated creatinine level to rule out PE. Pulmonary is on board. Continue to follow closely. Time with Patient: Greater than 30
[2023-07-23] MEDS: METOPROLOL TARTRATE 12.5 MG TAB PO SCH (04:25)
[2023-07-23] MEDS: LATANOPROST 0.005% OPHTH DROPS 2.5 ML BTL BOTH EYES SCH (04:39)
[2023-07-23] MEDS ORDERED: METOPROLOL TARTRATE 25 MG TAB PO SCH (07:00)
[2023-07-23 10:43] LABS: Basophils % (A) 0 %; Eosinophils % (A) 0 %; HCT 27.2 % (39.0-53.0); HGB 8.2 gm/dL (13.0-17.5); Hypochromasia Moderate; Lymphocytes # (A) 0.5 k/uL (1.0-4.8); Lymphocytes % (A) 3 %; MCH 27.1 pg (25.0-35.0); MCHC 30.1 g/dL (31.0-37.0); MCV 90.1 fL (80.0-100.0); Mean Platelet Volume 8.4; Monocytes % (A) 6 %; Neutrophils # (A) 15.5 k/uL (1.3-7.7); Neutrophils % (A) 89 %; Platelet Count 579 k/uL (150-450); RBC 3.01 m/uL (4.30-5.90); RDW 15.3 % (11.5-15.5); WBC 17.4 k/uL (3.8-10.6)
[2023-07-23 11:13] LABS: ALT 32 U/L (4-49); AST 45 U/L (17-59); African American GFR (CKD) 50 (>60 ml/min/1.73 sqM); Albumin 2.5 g/dL (3.5-5.0); Alkaline Phosphatase 182 U/L (38-126); Anion Gap 11 mmol/L; Blood Urea Nitrogen 61 mg/dL (9-20); Calcium 8.4 mg/dL (8.4-10.2); Carbon Dioxide 18 mmol/L (22-30); Chloride 105 mmol/L (98-107); Glucose 134 mg/dL (74-99); Non-African American GFR(CKD) 43 (>60 ml/min/1.73 sqM); Sodium 134 mmol/L (137-145); Total Bilirubin 1.9 mg/dL (0.2-1.3); Total Protein 5.6 g/dL (6.3-8.2)
[2023-07-23 11:35] LABS: Potassium 5.1 mmol/L (3.5-5.1)
--- NOTE | 2023-07-23 14:37 | P.PN ---
Subjective Progress Note Date: 07/23/23 Patient is an 88-year-old male with past medical history significant for hypertension, hyperlipidemia, paroxysmal atrial fibrillation previously anticoagulated on Eliquis, frequent falls. Patient recently fell from his wheelchair and had sustained a left hip fracture. He underwent a left hip cemented unipolar hemiarthroplasty on 07/05/2023. He was then discharged back to his extended care facility. Patient was sent back in from his ECF yesterday for evaluation of acute dyspnea. He was reportedly diagnosed with pneumonia earlier in the day, and started on doxycycline. When EMS arrived to the [facility], he was hypoxic with an SpO2 of less than 80%. He was also tachypneic and tachycardic and in respiratory distress. He was transferred to our facility on BiPAP. He is currently sitting up in bed, in some respiratory distress. On BiPAP with settings 12/6 and FiO2 of 100%. Respiratory rate is in the mid 30s and tidal volumes are greater than 800. He is unable to provide any information at this time. There is accessory muscle use. ABG done on above-mentioned settings showed a PaO2 of 183, pCO2 of 39, pH of 7.35. Chest x-ray shows a left lower lobe infiltrate and or atelectasis and small left-sided pleural effusion, possibly parapneumonic. CBC on arrival: WBC count of 30.7, hemoglobin 8.9, hematocrit 27.8, platelets 708. CMP on arrival: Sodium 130, potassium 4.9, chloride 97, serum bicarb 19, BUN 59, creatinine 2.09, glucose 106. Normal saline infusing at 130 MLS per hour. LFTs mildly elevated. Troponin 0.027. NT proBNP 5700. There is a component of acute on chronic kidney injury. Negative for influenza, RSV, COVID. Patient's D-dimer was elevated. For this reason a venous Doppler of the lower extremities was ordered, and the patient was found to have a left lower extremity DVT. Patient was previously anticoagulated on Eliquis, however, this has been stopped after his most recent fall and hip fracture. Left hip incision is approximated and clean and dry. No drainage. Hemoglobin is stable at 8.9 g/dL. Patient denies any bright red blood, melanotic stools, or hematemesis. Patient's respiratory status is currently labile, will continue to closely monitor. Patient may need transfer to the intensive care unit. In the emergency department and I had a lengthy discussion with the . The patient is currently on a BiPAP and is tolerating the BiPAP reasonably well with generation of adequate tidal volume above 500. No significant tachypnea. The patient is on a pressure setting of 12/6 and a meters of water and FiO2 has been weaned down.The white cell count from today is 29 with a hemoglobin of 7.6 and a platelet count of 527. Blood gases show a pH of 7.35 with a pCO2 of 39 and pO2 of 183 and this was on FiO2 of 100%. Viral screen has been negative and the procalcitonin level is at 4.2. BUN is at 69 with a creatinine of 2.09. Cultures were sent and the results are still pending for now. The chest x-ray showed a new area of consolidation of the left lower lobe in addition to a small left-sided pleural effusion. Ultrasound of the chest was also ordered and the results were consistent with a small left-sided pleural effusion with a 4.2 cm pocket. 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 Noted the patient was on anticoagulation with Eliquis in the past and this anticoagulation was discontinued because of his frequent falls. Noted the procalcitonin level is elevated at 4.2 On today's evaluation of 07/23/2023, seen the patient for a follow-up. The patient got moved out of the emergency department and the patient is currently on the medical floor. He was taken off the BiPAP this morning and the patient is currently on 2 L of O2 with a pulse ox of 98%. Alert awake and communicating. The white cell count is dropped down to 17.4 with a hemoglobin of 8.2 and a platelet count of 579. Hemodynamically stable. There is also interval improvement in the creatinine which is down to 1.43 with a BUN of 61. Sodium levels at 134. The patient remains on a combination of Zosyn and vancomycin. Remains on bronchodilators. Remains on IV Solu-Medrol 60 mg every 6 hours. The patient is also on IV heparin. PTT is therapeutic at this point in time. No evidence of any bleeding. Awake and alert and communicating. Objective - Vital Signs Vital signs: Vital Signs Temp 97.9 F 07/23/23 09:05 Pulse 98 07/23/23 11:10 Resp 18 07/23/23 11:10 BP 123/72 07/23/23 11:10 Pulse Ox 93 L 07/23/23 11:10 FiO2 40 07/23/23 02:57 Intake & Output 07/22/23 07/23/23 07/23/23 18:59 06:59 18:59 Intake Total 109.613 125.822 Output Total 1000 750 Balance 109.613 -874.178 -750 Intake: Intake, IV Titration 109.613 125.822 Amount Heparin Sod,Pork in 0.45% 109.613 125.822 NaCl 25,000 unit In 0.45 % NaCl 1 250ml.bag @ 18 UNITS/KG/HR 14.615 mls/hr IV .[id number] MARIAN Rx#: [id number] Output: Urine 1000 750 Other: Voiding Method Indwelling Catheter # Voids 1 - Exam GENERAL EXAM: Anxious, 88-year-old male, currently on 3 L of oxygen by nasal cannula and the patient was taken off the BiPAP HEAD: Normocephalic and atraumatic EYES: Normal reaction of pupils, equal size. NOSE: Clear with pink turbinates. THROAT: No erythema or exudates. NECK: No masses, no JVD. CHEST: No chest wall deformity. LUNGS: Equal air entry with left lower lobe inspiratory crackles and scattered rhonchi/wheezing. CVS: S1 and S2 normal with no audible murmur, regular rhythm. No extra heart sounds. Tachycardic. ABDOMEN: No hepatosplenomegaly, active bowel sounds, no guarding or rigidity. SPINE: No scoliosis or deformity SKIN: No rashes CENTRAL NERVOUS SYSTEM: No focal deficits, tone is normal in all 4 extremities. Alert and awake and communicating EXTREMITIES: There is no peripheral edema, clubbing, or cyanosis. Peripheral pulses are intact. Left hip incision is approximated, clean and dry, no drainage. - Labs CBC & Chem 7: 07/23/23 09:55 07/23/23 09:55 Labs: Abnormal Lab Results - Last 24 Hours (Table) 07/22/23 07/22/23 07/22/23 Range/Units 07:16 14:40 21:19 WBC (3.8-10.6) k/uL RBC (4.30-5.90) m/uL Hgb (13.0-17.5) gm/dL Hct (39.0-53.0) % MCHC (31.0-37.0) g/dL Plt Count (150-450) k/uL Neutrophils # (1.3-7.7) k/uL Lymphocytes # (1.0-4.8) k/uL APTT 129.0 H* 89.9 H (22.0-30.0) sec Sodium (137-145) mmol/L Carbon Dioxide (22-30) mmol/L BUN (9-20) mg/dL Creatinine (0.66-1.25) mg/dL Glucose (74-99) mg/dL Total Bilirubin (0.2-1.3) mg/dL Alkaline Phosphatase (38-126) U/L Total Protein (6.3-8.2) g/dL Albumin (3.5-5.0) g/dL Procalcitonin 4.20 H (0.02-0.09) ng/mL 07/23/23 07/23/23 07/23/23 Range/Units 09:55 09:55 09:55 WBC 17.4 H (3.8-10.6) k/uL RBC 3.01 L (4.30-5.90) m/uL Hgb 8.2 L (13.0-17.5) gm/dL Hct 27.2 L (39.0-53.0) % MCHC 30.1 L (31.0-37.0) g/dL Plt Count 579 H (150-450) k/uL Neutrophils # 15.5 H (1.3-7.7) k/uL Lymphocytes # 0.5 L (1.0-4.8) k/uL APTT 57.4 H (22.0-30.0) sec Sodium 134 L (137-145) mmol/L Carbon Dioxide 18 L (22-30) mmol/L BUN 61 H (9-20) mg/dL Creatinine 1.43 H (0.66-1.25) mg/dL Glucose 134 H (74-99) mg/dL Total Bilirubin 1.9 H (0.2-1.3) mg/dL Alkaline Phosphatase 182 H (38-126) U/L Total Protein 5.6 L (6.3-8.2) g/dL Albumin 2.5 L (3.5-5.0) g/dL Procalcitonin (0.02-0.09) ng/mL Assessment and Plan Plan: Acute hypoxemic respiratory failure, possibly multifactorial, secondary to acute COPD exacerbation and possible left-sided community-acquired pneumonia and left- sided pleural effusion, possibly parapneumonic. Possibility of a hospital- acquired pathogen cannot be completely ruled out. The patient is currently off BiPAP on 3 L of oxygen by nasal cannula, clinically improved Acute left lower lobe pneumonia, most likely bacterial infection and the patient procalcitonin level is also elevated. Patient has leukocytosis. Consider bacterial infection the patient will be covered with broad-spectrum antibiotics for now. Patient is currently on a combination of Zosyn and vancomycin, clinic ally improved and the patient will have a follow-up chest x-ray in the morning Acute leukocytosis, possibly secondary to above, improving Left lower extremity DVT The ultrasound of the lower extremity on the left reveals chronic clot versus partially occlusive thrombus involving the long segment of the left lower extremity. Note that the patient was off his anticoagulants due to his frequent falls., Frequent falls, with recent left hip femoral neck fracture, status/post left hip cemented unipolar hemiarthroplasty on 07/05/2023 History of fall with multiple left-sided rib fractures and pulmonary contusion History of paroxysmal atrial fibrillation, Eliquis has been stopped Normocytic normochromic anemia, hemoglobin stable from recent hospital admission. Acute on chronic kidney disease, creatinine is improved compared to yesterday the patient is recovering from his acute kidney injury History of thoracic level wound/cellulitis, isolated organism at that time was MRSA History of hyperlipidemia History of hypertension History of former tobacco dependence Chronic obstructive pulmonary disease History of alcoholism Plan: Will gently hydrate the patient with normal saline at the rate of 75 cc an hour. Monitor renal function, renal function is also improving Continue IV heparin Oxygenation is improved and the patient was taken off the BiPAP and the patient is currently on 2 L of oxygen by nasal cannula Continue combination of Zosyn and vancomycin and Zithromax Obtain chest ultrasound for further evaluation of left sided pleural effusion, based on my evaluation, the pleural fluid is small based on the chest x-ray and ultrasound findings. The repeat chest x-ray will be obtained tomorrow Continue combination of DuoNebs [id number], formoterol inhalation, budesonide inhalation, and IV Solu-Medrol Started the patient on high intensity heparin protocol for his left lower extremity DVT Will hold off on doing any further workup for possibility of pulmonary embolism at this point in time. The patient is currently on a BiPAP. Will give IV heparin and will proceed with a CT angiogram of the chest once the patient is more stable and renal function is further stabilized DNR/DNI CODE STATUS Prognosis remains guarded although clinically improved compared to yesterday.
[2023-07-23] MEDS: VANCOMYCIN 1,500 MG in SODIUM CHLORIDE 0.9% 500 ML 500 ML IVPB SCH (15:01)
--- NOTE | 2023-07-23 16:15 | P.PN ---
Subjective Progress Note Date: 07/23/23 Patient is a 88-year-old male with a past medical history of hypertension, hyperlipidemia, paroxysmal atrial fibrillation coronary artery disease nonobstructive, mild cardiomyopathy ejection fraction 45-50 %, history of right tobacco smoker and left hip hemiarthroplasty on 07/05/2023 due to mechanical fa ll. Patient presented from nursing facility due to worsening shortness of breath/dyspnea. Patient was diagnosed with pneumonia and was started on doxycycline. He was placed on oxygen at 4 L via nasal cannula and EMS was called due to hypoxia with pulse ox down to 80% and patient was tachycardic and tachypneic. Patient was placed on BiPAP by EMS and was transferred to ER. Otherwise patient denies any complaints of chest pain. Cough with occasional sputum production. Tmax 101.0 on admission. Patient was recently admitted to due to acute blood loss anemia from 07/11/2023 to 07/12/2023. requiring 1 unit PRBC transfusion. Eliquis was held and was [facility]. Chest x-ray showed chronic parenchymal changes with new small left pleural effusion and left lower lobe acute infiltrates/atelectasis. EKG showed sinus tachycardia with possible left atrial enlargement. Lower extremity venous duplex showed suboptimal study. Long segment left lower extremity DVT is present. Findings reflect chronic clot or partially occlusive thrombus. Correlate clinically. Mild to moderate diffuse subcutaneous edema is seen on images obtained. Laboratory data showed WBC 13.7 hemoglobin 8.9 and platelets 708, D-dimer 4.11 ABG showed pH 7.35 pCO2 39, pO2 183 Sodium 130 potassium 4.9 chloride 97 bicarb is 19 BUN 59 and creatinine 2.09 and blood sugar 106 and lactic acid 3.1 total bilirubin 3.5 and alk phos 268, proBNP 5700, troponin 0.027 and albumin 2.8 Influenza A, B, RSV and COVID-19 PCR not detected. On 07/23/2023 Patient is seen and evaluated in follow-up. Patient was continued on BiPAP and is currently maintaining oxygen saturations above 90% on 3 L. Review of systems: Constitutional: No reports of fatigue, fever, or chills Cardiovascular: No reports of chest pain or palpitations Respiratory: No reports of shortness of breath or cough GI: No reports of nausea, vomiting, or diarrhea : No reports of dysuria or retention Neurovascular: reports of extreme generalized weakness and lower extremity pain with swelling especially the left leg All medications have been reviewed PHYSICAL EXAMINATION: Patient is lying in the bed. No acute distress, awake alert and oriented.. Has been weaned off BiPAP currently on 3 L via nasal cannula, well-developed, thin built, elderly appearing, ill-appearing HEENT: Normocephalic. Neck is supple. Pupils reactive. Nostrils clear. Oral cavity is moist. Neck reveals no JVD, carotid bruits, or thyromegaly. CHEST EXAMINATION: Trachea is central. Symmetrical expansion. Left basilar coarse sounds. Mild expiratory wheeze.. Crackles noted at the bases CARDIAC: Normal S1, S2 with no gallops. No murmurs ABDOMEN: Soft. Thin. Bowel sounds normal. No organomegaly. No abdominal bruits. Extremities: reveal no edema. No clubbing or cyanosis, bilateral lower extremity swelling worse on the left, foot drop noted on the left as well. Left hip surgical site has scabbing noted with no redness or drainage noted, healing well and approximated Neurologically awake, alert, oriented x 2-3. Diffusely weak Skin: No rash or skin lesions. Psychiatric: Cooperative. Could not be assessed completely Musculoskeletal: No joint swelling or deformity. Assessment: Acute hypoxemic respiratory failure due to left lower lobe pneumonia and left sided small pleural effusion and COPD. Patient is requiring BiPAP. Sepsis secondary to pneumonia Acute left lower extremity DVT. Elevated D-dimer level. CT PE could not be done due to elevated creatinine level. VQ scan was ordered to rule out PE. Acute kidney injury likely prerenal with possible ATN. CKD stage III. Hypovolemic hyponatremia, secondary to poor oral intake Lactic acidosis 3.1 on admission, secondary to left lower lobe pneumonia, improved History of mechanical fall status post left hip cemented unipolar hemiarthroplasty on 07/05/2023 Recent admission with anemia requiring blood transfusion 1 unit PRBC. Eliquis is on hold at the time Paroxysmal atrial fibrillation, currently rate controlled currently Eliquis was on hold. Patient is continued on IV heparin for now and will transition back to Eliquis Mild cardiomyopathy with ejection fraction 45 to 50%. EF improved to 55 to 60% as per recent echocardiogram on 07/05/2023 Coronary artery disease nonobstructive Hypertension Hyperlipidemia History of tobacco use History of EtOH abuse GI prophylaxis with PPI DVT prophylaxis, IV heparin No code Plan: Patient was maintained on BiPAP on admission and has transition to 3 L via nasal cannula. Pulmonary following. Continue with DuoNebs, IV Solu-Medrol 60 mg every 6 hourly. Patient was given azithromycin and ceftriaxone in the ER. Antibiotics in the form of Zosyn and vancomycin. Procalcitonin level is elevated. Patient was started on heparin drip due to left lower extremity acute DVT. VQ scan was ordered due to elevated creatinine level to rule out PE. Patient was on anticoagulation previously although was held due to concerns of GI bleeding. No active bleeding noted and will need to transition back to [facility] on disch arge. Recommend follow-up labs and close monitoring of hemoglobin along with kidney functions Recommend PT/OT therapy evaluation Continue with wound prison medications reviewed and resumed as appropriate Will discuss with case management/social work as plan is to return to ECF once cleared by consultations. The impression and plan of care has been dictated by Akila Clemente, Nurse Practitioner as directed. Dr. Lj MD I have performed a history and examination and MDM of this patient, discussed the same with the dictator, and agree with the dictator's assessment and plan as written ,documented as a scribe. Based on total visit time, I have performed more than 50% of the visit. Objective - Vital Signs Vital signs: Vital Signs Temp 97.7 F 07/22/23 17:29 Pulse 100 07/23/23 08:06 Resp 40 H 07/22/23 20:38 BP 94/65 07/22/23 20:38 Pulse Ox 93 L 07/23/23 07:47 FiO2 40 07/23/23 02:57 Intake & Output 07/22/23 07/23/23 07/23/23 18:59 06:59 18:59 Intake Total 109.613 125.822 Output Total 1000 Balance 109.613 -874.178 Intake: Intake, IV Titration 109.613 125.822 Amount Heparin Sod,Pork in 0.45% 109.613 125.822 NaCl 25,000 unit In 0.45 % NaCl 1 250ml.bag @ 18 UNITS/KG/HR 14.615 mls/hr IV .Q17H7M [facility] Rx#: [id number] Output: Urine 1000 Other: # Voids 1 - Labs CBC & Chem 7: 07/23/23 09:55 04/09/24 09:55 Labs: Abnormal Lab Results - Last 24 Hours (Table) 07/22/23 07/22/23 07/22/23 Range/Units 07:16 14:40 21:19 APTT 129.0 H* 89.9 H (22.0-30.0) sec Procalcitonin 4.20 H (0.02-0.09) ng/mL
[2023-07-23] MEDS: ATORVASTATIN 20 MG TAB PO SCH (21:19)
--- NOTE | 2023-07-24 07:45 | XR ---
EXAMINATION TYPE: XR chest 1V portable DATE OF EXAM: 07/24/2023 HISTORY: Shortness of breath. COMPARISON: 07/21/2023 TECHNIQUE: Single view of the chest is submitted. FINDINGS: Demonstrated are scattered senescent parenchymal change. Increasing left lower lobe pleural effusion. Associated atelectasis or infiltrate. The heart is stable. Hilar and mediastinal structures are within normal limits. Degenerative changes are seen of the dorsal spine. IMPRESSION: 1. Increasing left lower lobe pleural effusion. Associated atelectasis or infiltrate.
[2023-07-24 08:27] LABS: African American GFR (CKD) 44 (>60 ml/min/1.73 sqM); Non-African American GFR(CKD) 38 (>60 ml/min/1.73 sqM)
[2023-07-24 10:47] LABS: ALT 33 U/L (4-49); AST 38 U/L (17-59); Albumin 2.3 g/dL (3.5-5.0); Albumin/Globulin Ratio 0.8; Alkaline Phosphatase 155 U/L (38-126); Anion Gap 9 mmol/L; Blood Urea Nitrogen 63 mg/dL (9-20); Calcium 8.4 mg/dL (8.4-10.2); Carbon Dioxide 18 mmol/L (22-30); Chloride 106 mmol/L (98-107); Glucose 168 mg/dL (74-99); Magnesium 1.7 mg/dL (1.6-2.3); Potassium 4.1 mmol/L (3.5-5.1); Sodium 133 mmol/L (137-145); Total Bilirubin 1.6 mg/dL (0.2-1.3); Total Protein 5.3 g/dL (6.3-8.2)
[2023-07-24 11:15] LABS: HCT 25.3 % (39.0-53.0); HGB 7.7 gm/dL (13.0-17.5); Hypochromasia Marked; MCH 27.9 pg (25.0-35.0); MCHC 30.6 g/dL (31.0-37.0); MCV 91.3 fL (80.0-100.0); Mean Platelet Volume 8.7; Platelet Count 537 k/uL (150-450); RBC 2.77 m/uL (4.30-5.90); RDW 15.3 % (11.5-15.5); WBC 10.1 k/uL (3.8-10.6)
--- NOTE | 2023-07-24 12:16 | P.PN ---
Subjective Progress Note Date: 07/24/23 Patient is an 88-year-old male with past medical history significant for hypertension, hyperlipidemia, paroxysmal atrial fibrillation previously anticoagulated on Eliquis, frequent falls. Patient recently fell from his wheelchair and had sustained a left hip fracture. He underwent a left hip cemented unipolar hemiarthroplasty on 07/05/2023. He was then discharged back to his extended care facility. Patient was sent back in from his ECF yesterday for evaluation of acute dyspnea. He was reportedly diagnosed with pneumonia earlier in the day, and started on doxycycline. When EMS arrived to the [facility], he was hypoxic with an SpO2 of less than 80%. He was also tachypneic and tachycardic and in respiratory distress. He was transferred to our facility on BiPAP. He is currently sitting up in bed, in some respiratory distress. On BiPAP with settings 12/6 and FiO2 of 100%. Respiratory rate is in the mid 30s and tidal volumes are greater than 800. He is unable to provide any information at this time. There is accessory muscle use. ABG done on above-mentioned settings showed a PaO2 of 183, pCO2 of 39, pH of 7.35. Chest x-ray shows a left lower lobe infiltrate and or atelectasis and small left-sided pleural effusion, possibly parapneumonic. CBC on arrival: WBC count of 30.7, hemoglobin 8.9, hematocrit 27.8, platelets 708. CMP on arrival: Sodium 130, potassium 4.9, chloride 97, serum bicarb 19, BUN 59, creatinine 2.09, glucose 106. Normal saline infusing at 130 MLS per hour. LFTs mildly elevated. Troponin 0.027. NT proBNP 5700. There is a component of acute on chronic kidney injury. Negative for influenza, RSV, COVID. Patient's D-dimer was elevated. For this reason a venous Doppler of the lower extremities was ordered, and the patient was found to have a left lower extremity DVT. Patient was previously anticoagulated on Eliquis, however, this has been stopped after his most recent fall and hip fracture. Left hip incision is approximated and clean and dry. No drainage. Hemoglobin is stable at 8.9 g/dL. Patient denies any bright red blood, melanotic stools, or hematemesis. Patient's respiratory status is currently labile, will continue to closely monitor. Patient may need transfer to the intensive care unit. In the emergency department and I had a lengthy discussion with the . The patient is currently on a BiPAP and is tolerating the BiPAP reasonably well with generation of adequate tidal volume above 500. No significant tachypnea. The patient is on a pressure setting of 12/6 and a meters of water and FiO2 has been weaned down.The white cell count from today is 29 with a hemoglobin of 7.6 and a platelet count of 527. Blood gases show a pH of 7.35 with a pCO2 of 39 and pO2 of 183 and this was on FiO2 of 100%. Viral screen has been negative and the procalcitonin level is at 4.2. BUN is at 69 with a creatinine of 2.09. Cultures were sent and the results are still pending for now. The chest x-ray showed a new area of consolidation of the left lower lobe in addition to a small left-sided pleural effusion. Ultrasound of the chest was also ordered and the results were consistent with a small left-sided pleural effusion with a 4.2 cm pocket. 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 Noted the patient was on anticoagulation with Eliquis in the past and this anticoagulation was discontinued because of his frequent falls. Noted the procalcitonin level is elevated at 4.2 On today's evaluation of 07/23/2023, seen the patient for a follow-up. The patient got moved out of the emergency department and the patient is currently on the medical floor. He was taken off the BiPAP this morning and the patient is currently on 2 L of O2 with a pulse ox of 98%. Alert awake and communicating. The white cell count is dropped down to 17.4 with a hemoglobin of 8.2 and a platelet count of 579. Hemodynamically stable. There is also interval improvement in the creatinine which is down to 1.43 with a BUN of 61. Sodium levels at 134. The patient remains on a combination of Zosyn and vancomycin. Remains on bronchodilators. Remains on IV Solu-Medrol 60 mg every 6 hours. The patient is also on IV heparin. PTT is therapeutic at this point in time. No evidence of any bleeding. Awake and alert and communicating. On today's evaluation of 07/24/2023, the patient is being seen for a follow-up. Clinically stable and the patient is currently on liters of oxygen by nasal cannula with a pulse ox of 94%. Repeat chest x-ray was done today and it shows some increase in the left lower lobe pleural effusion. There is also some infiltration/atelectasis. However clinically, the patient is stable. The patient is currently off the BiPAP. He has developed a small left-sided pleural effusion, likely parapneumonic in nature. Ultrasound of the chest was done yesterday showed a 4.2 cm pocket in the left lung. The WBC count is at 10.1 wh ich is improved with a hemoglobin of 7.7 slightly lower compared to yesterday with a platelet count of 537. Rest of the electrolytes are still pending. The patient remains on IV heparin. Remains on Zosyn and vancomycin coverage. No significant tachycardia. The patient is on DuoNeb updrafts. The patient on IV Solu-Medrol. The patient on Zosyn and vancomycin. The patient is on metoprolol 12.5 mg p.o. twice a day. Objective - Vital Signs Vital signs: Vital Signs Temp 97.4 F L 07/24/23 07:18 Pulse 89 07/24/23 08:38 Resp 19 07/24/23 07:18 BP 122/74 07/24/23 07:18 Pulse Ox 94 L 07/24/23 08:10 FiO2 40 07/23/23 02:57 Intake & Output 07/23/23 07/24/23 07/24/23 18:59 06:59 18:59 Intake Total 344.524 Output Total 750 700 Balance -750 -355.476 Weight 81.193 kg 99 kg Intake: Intake, IV Titration 344.524 Amount Heparin Sod,Pork in 0.45% 244.524 NaCl 25,000 unit In 0.45 % NaCl 1 250ml.bag @ 18 UNITS/KG/HR 14.615 mls/hr IV .Q17H7M [facility] Rx#: [id number] Piperacillin-Tazobactam 3 100 .375 gm In Sodium Chloride 0.9% 100 ml @ 25 mls/hr IVPB Q8HR [facility] Rx# :[id number] Output: Urine 750 700 Other: Voiding Method Indwelling Catheter Indwelling Catheter Indwelling Catheter # Bowel Movements 0 - Exam GENERAL EXAM: Anxious, 88-year-old male, currently on 3 L of oxygen by nasal cannula and the patient was taken off the BiPAP HEAD: Normocephalic and atraumatic EYES: Normal reaction of pupils, equal size. NOSE: Clear with pink turbinates. THROAT: No erythema or exudates. NECK: No masses, no JVD. CHEST: No chest wall deformity. LUNGS: Equal air entry with left lower lobe inspiratory crackles and scattered rhonchi/wheezing. CVS: S1 and S2 normal with no audible murmur, regular rhythm. No extra heart sounds. Tachycardic. ABDOMEN: No hepatosplenomegaly, active bowel sounds, no guarding or rigidity. SPINE: No scoliosis or deformity SKIN: No rashes CENTRAL NERVOUS SYSTEM: No focal deficits, tone is normal in all 4 extremities. Alert and awake and communicating EXTREMITIES: There is no peripheral edema, clubbing, or cyanosis. Peripheral pulses are intact. Left hip incision is approximated, clean and dry, no d rainage. - Labs CBC & Chem 7: 07/24/23 07:36 07/24/23 06:56 Labs: Abnormal Lab Results - Last 24 Hours (Table) 07/24/23 07/24/23 07/24/23 Range/Units 06:56 07:36 07:36 RBC 2.77 L (4.30-5.90) m/uL Hgb 7.7 L (13.0-17.5) gm/dL Hct 25.3 L (39.0-53.0) % MCHC 30.6 L (31.0-37.0) g/dL Plt Count 537 H (150-450) k/uL APTT 53.9 H (22.0-30.0) sec Sodium 133 L (137-145) mmol/L Carbon Dioxide 18 L (22-30) mmol/L BUN 63 H (9-20) mg/dL Creatinine 1.59 H (0.66-1.25) mg/dL Glucose 168 H (74-99) mg/dL Total Bilirubin 1.6 H (0.2-1.3) mg/dL Alkaline Phosphatase 155 H (38-126) U/L Total Protein 5.3 L (6.3-8.2) g/dL Albumin 2.3 L (3.5-5.0) g/dL Microbiology - Last 24 Hours (Table) 07/22/23 19:01 Nasal Screen MRSA/MSSA - Final Nasal Swab Methicillin resist S. aureus 07/21/23 23:00 Blood Culture - Preliminary Blood 07/21/23 22:45 Blood Culture - Preliminary Blood Assessment and Plan Plan: Acute hypoxemic respiratory failure, possibly multifactorial, secondary to acute COPD exacerbation and possible left-sided community-acquired pneumonia and left- sided pleural effusion, possibly parapneumonic. Possibility of a hospital-acquired pathogen cannot be completely ruled out. The patient is currently off BiPAP on 3 L of oxygen by nasal cannula, clinically improved Acute left lower lobe pneumonia, most likely bacterial infection and the patient procalcitonin level is also elevated. Patient has leukocytosis. Consider bacterial infection the patient will be covered with broad-spectrum antibiotics for now. Patient is currently on a combination of Zosyn and vancomycin, clinically improved and the patient will have a follow-up chest x-ray in the morning Acute leukocytosis, possibly secondary to above, improving Left lower extremity DVT The ultrasound of the lower extremity on the left reveals chronic clot versus partially occlusive thrombus involving the long segment of the left lower extremity. Note that the patient was off his anticoagulants due to his frequent falls., Frequent falls, with recent left hip femoral neck fracture, status/post left hip cemented unipolar hemiarthroplasty on 07/05/2023 History of fall with multiple left-sided rib fractures and pulmonary contusion History of paroxysmal atrial fibrillation, Eliquis has been stopped Normocytic normochromic anemia, hemoglobin stable from recent hospital admission. Acute on chronic kidney disease, creatinine is improved compared to yesterday the patient is recovering from his acute kidney injury History of thoracic level wound/cellulitis, isolated organism at that time was MRSA History of hyperlipidemia History of hypertension History of former tobacco dependence Chronic obstructive pulmonary disease History of alcoholism Plan: Will continue monitoring the chest x-ray findings and the patient has developed a small left-sided pleural effusions Change IV fluids to KVO Monitor renal function, renal function is also improving, awaiting labs from today Continue IV heparin Oxygenation is improved and the patient was taken off the BiPAP and the patient is currently on 2 L of oxygen by nasal cannula Continue combination of Zosyn and vancomycin White cell count is improved Reviewed the results of the chest ultrasound and will repeat the chest x-ray tomorrow and will consider thoracentesis if there is further increase in size of the left-sided pleural effusion. Meanwhile, the patient will be kept on IV heparin only. Do not transition to oral anticoagulants at this point in time. Continue combination of DuoNebs [id number], formoterol inhalation, budesonide inhalation, and IV Solu-Medrol continue heparin protocol for his left lower extremity DVT DNR/DNI CODE STATUS
[2023-07-24 12:35] LABS: Lymphocytes # (M) 0.61 k/uL (1.0-4.8); Monocytes # (M) 0.71 k/uL (0-1.0); Neutrophils # (M) 8.79 k/uL (1.3-7.7); Neutrophils % (M) 87 %; Nucleated Red Blood Cells 0 /100 WBC (0-0); Total Cells Counted 100
[2023-07-24] MEDS ORDERED: HEPARIN SODIUM 1,000 UN/ML (10ML VL) IV PRN (16:04)
--- NOTE | 2023-07-24 16:20 | P.PN ---
Subjective Progress Note Date: 07/24/23 Patient is a 88-year-old male with a past medical history of hypertension, hyperlipidemia, paroxysmal atrial fibrillation coronary artery disease nonobstructive, mild cardiomyopathy ejection fraction 45-50 %, history of right tobacco smoker and left hip hemiarthroplasty on 07/05/2023 due to mechanical fa ll. Patient presented from nursing facility due to worsening shortness of breath/dyspnea. Patient was diagnosed with pneumonia and was started on doxycycline. He was placed on oxygen at 4 L via nasal cannula and EMS was called due to hypoxia with pulse ox down to 80% and patient was tachycardic and tachypneic. Patient was placed on BiPAP by EMS and was transferred to ER. Otherwise patient denies any complaints of chest pain. Cough with occasional sputum production. Tmax 101.0 on admission. Patient was recently admitted to due to acute blood loss anemia from 07/11/2023 to 07/12/2023. requiring 1 unit PRBC transfusion. Eliquis was held and was discharged back to assisted facility for rehab. Chest x-ray showed chronic parenchymal changes with new small left pleural effusion and left lower lobe acute infiltrates/atelectasis. EKG showed sinus tachycardia with possible left atrial enlargement. Lower extremity venous duplex showed suboptimal study. Long segment left lower extremity DVT is present. Findings reflect chronic clot or partially occlusive thrombus. Correlate clinically. Mild to moderate diffuse subcutaneous edema is seen on images obtained. Laboratory data showed WBC 13.7 hemoglobin 8.9 and platelets 708, D-dimer 4.11 ABG showed pH 7.35 pCO2 39, pO2 183 Sodium 130 potassium 4.9 chloride 97 bicarb is 19 BUN 59 and creatinine 2.09 and blood sugar 106 and lactic acid 3.1 total bilirubin 3.5 and alk phos 268, proBNP 5700, troponin 0.027 and albumin 2.8 Influenza A, B, RSV and COVID-19 PCR not detected. 07/23/2023 Patient is seen and evaluated in follow-up. Patient was continued on BiPAP and is currently maintaining oxygen saturations above 90% on 3 L. Patient continues on IV heparin drip with left lower extremity DVT. VQ scan was ordered as jean t was unable to have CT of the chest for PE evaluation as kidney functions are elevated. Will hold on VQ scan for now as patient unable to tolerate lying flat. Continue IV heparin and will likely need to transition back to Eliquis. 07/24/2023 Patient is seen and evaluated in follow-up today with pulmonary following. Patient continues on 3 L via nasal cannula and has been off of the BiPAP. Fol low-up chest x-ray today shows increasing left lower lobe pleural effusion with associated atelectasis and/or infiltrate. Strongly encourage incentive spirometer although patient needs much encouragement as he is extremely weak and confused at times. Patient continues on IV heparin and will for now as there will be a follow-up chest x-ray in the a.m. and may require a thoracentesis with pulmonary following closely. Will discuss with pulmonary in regards to transitioning to Eliquis or if patient is appropriate for any further anticoagulation. Patient is afebrile with no reported chest pain or worsening shortness of breath. Patient is continued on IV steroids along with antibiotics and DuoNeb breathing treatments. Encouraged oral intake and recommend aspiration precautions with head of the bed elevated 45 degrees at all times. Review of systems: Constitutional: No reports of fatigue, fever, or chills Cardiovascular: No reports of chest pain or palpitations Respiratory: No reports of shortness of breath or cough GI: No reports of nausea, vomiting, or diarrhea : No reports of dysuria or retention Neurovascular: reports of extreme generalized weakness and lower extremity pain with swelling especially the left leg All medications have been reviewed PHYSICAL EXAMINATION: Patient is lying in the bed. No acute distress, awake alert and oriented x 2, confused at times.. Has been weaned off BiPAP currently on 3 L via nasal cannula, well-developed, thin built, elderly appearing, ill-appearing HEENT: Normocephalic. Neck is supple. Pupils reactive. Nostrils clear. Oral cavi ty is moist. Neck reveals no JVD, carotid bruits, or thyromegaly. CHEST EXAMINATION: Trachea is central. Symmetrical expansion. Left basilar coarse sounds. Mild expiratory wheeze.. Crackles noted at the bases CARDIAC: Normal S1, S2 with no gallops. No murmurs ABDOMEN: Soft. Thin. Bowel sounds normal. No organomegaly. No abdominal bruits. Extremities: reveal no edema. No clubbing or cyanosis, bilateral lower extremity swelling worse on the left, foot drop noted on the left as well. Left hip surgical site has scabbing noted with no redness or drainage noted, healing well and approximated Neurologically awake, alert, oriented x 2-3. Diffusely weak Skin: No rash or skin lesions. Psychiatric: Cooperative. Could not be assessed completely Musculoskeletal: No joint swelling or deformity. Assessment: Acute hypoxemic respiratory failure due to left lower lobe pneumonia and left si ded small pleural effusion and COPD. Patient is requiring BiPAP. Transition to nasal cannula patient continue but would be Sepsis secondary to pneumonia Acute left lower extremity DVT. Elevated D-dimer level. CT PE could not be done due to elevated creatinine level. VQ scan was ordered to rule out PE. Acute kidney injury likely prerenal with possible ATN. CKD stage III. Hypovolemic hyponatremia, secondary to poor oral intake Lactic acidosis 3.1 on admission, secondary to left lower lobe pneumonia, improved History of mechanical fall status post left hip cemented unipolar hemiarthroplasty on 07/05/2023 Recent admission with anemia requiring blood transfusion 1 unit PRBC. Eliquis is on hold at the time Paroxysmal atrial fibrillation, currently rate controlled currently Eliquis was on hold. Patient is continued on IV heparin for now and will transition back to Eliquis Mild cardiomyopathy with ejection fraction 45 to 50%. EF improved to 55 to 60% as per recent echocardiogram on 07/05/2023 Coronary artery disease nonobstructive Hypertension Hyperlipidemia History of tobacco use History of EtOH abuse GI prophylaxis with PPI DVT prophylaxis, IV heparin No code Plan: Patient was maintained on BiPAP on admission and has transition to 3 L via nasal cannula. Pulmonary following. Continue with DuoNebs, IV Solu-Medrol 60 mg every 6 hourly. Patient was given azithromycin and ceftriaxone in the ER. Antibiotics in the form of Zosyn and vancomycin. Procalcitonin level is elevate d. Patient was started on heparin drip due to left lower extremity acute DVT. VQ scan was ordered due to elevated creatinine level to rule out PE. Per pulmonary no need for V/Q at this time. Follow-up chest x-ray ordered for a.m. patient is noted to have a left pleural effusion being monitored and pulmonary will consider possible thoracentesis if no resolution on follow-up chest x-ray tomorrow. Recommended to continue with IV heparin for now. Will need to evaluate if patient is a candidate for anticoagulation moving forward Recommend follow-up labs and close monitoring of hemoglobin along with kidney functions. Hemoglobin is 7.7 with no active bleeding noted today. Recommend PT/OT therapy evaluation Continue with wound half-way medications reviewed and resumed as appropriate Patient having occasional periods of confusion and will add Seroquel as needed at night low-dose in the event patient becomes agitated. Encouraged opening the shades and blinds to the windows and possibly sitting up out of the bed more often and frequent reorientation. Patient is no code. Will discuss with case management/social work as plan is to return to [facility] once cleared by consultations. The impression and plan of care has been dictated by Akila Clemente, Nurse Practitioner as directed. Dr. Lj MD I have performed a history and examination and MDM of this patient, discussed the same with the dictator, and agree with the dictator's assessment and plan as written ,documented as a scribe. Based on total visit time, I have performed more than 50% of the visit. Objective - Vital Signs Vital signs: Vital Signs Temp 97.4 F L 07/24/23 07:18 Pulse 89 07/24/23 08:38 Resp 19 07/24/23 07:18 BP 122/74 07/24/23 07:18 Pulse Ox 94 L 07/24/23 08:10 FiO2 40 07/23/23 02:57 Intake & Output 07/23/23 07/24/23 07/24/23 18:59 06:59 18:59 Intake Total 344.524 Output Total 750 700 Balance -750 -355.476 Weight 81.193 kg 99 kg Intake: Intake, IV Titration 344.524 Amount Heparin Sod,Pork in 0.45% 244.524 NaCl 25,000 unit In 0.45 % NaCl 1 250ml.bag @ 18 UNITS/KG/HR 14.615 mls/hr IV .[id number] [facility] Rx#: [id number] Piperacillin-Tazobactam 3 100 .375 gm In Sodium Chloride 0.9% 100 ml @ 25 mls/hr IVPB Q8HR [facility] Rx# :[id number] Output: Urine 750 700 Other: Voiding Method Indwelling Catheter Indwelling Catheter # Bowel Movements 0 - Labs CBC & Chem 7: 07/24/23 07:36 07/24/23 06:56 Labs: Abnormal Lab Results - Last 24 Hours (Table) 07/23/23 07/23/23 07/23/23 Range/Units 09:55 09:55 09:55 WBC 17.4 H (3.8-10.6) k/uL RBC 3.01 L (4.30-5.90) m/uL Hgb 8.2 L (13.0-17.5) gm/dL Hct 27.2 L (39.0-53.0) % MCHC 30.1 L (31.0-37.0) g/dL Plt Count 579 H (150-450) k/uL Neutrophils # 15.5 H (1.3-7.7) k/uL Lymphocytes # 0.5 L (1.0-4.8) k/uL APTT 57.4 H (22.0-30.0) sec Sodium 134 L (137-145) mmol/L Carbon Dioxide 18 L (22-30) mmol/L BUN 61 H (9-20) mg/dL Creatinine 1.43 H (0.66-1.25) mg/dL Glucose 134 H (74-99) mg/dL Total Bilirubin 1.9 H (0.2-1.3) mg/dL Alkaline Phosphatase 182 H (38-126) U/L Total Protein 5.6 L (6.3-8.2) g/dL Albumin 2.5 L (3.5-5.0) g/dL 07/24/23 07/24/23 Range/Units 06:56 07:36 WBC (3.8-10.6) k/uL RBC (4.30-5.90) m/uL Hgb (13.0-17.5) gm/dL Hct (39.0-53.0) % MCHC (31.0-37.0) g/dL Plt Count (150-450) k/uL Neutrophils # (1.3-7.7) k/uL Lymphocytes # (1.0-4.8) k/uL APTT 53.9 H (22.0-30.0) sec Sodium (137-145) mmol/L Carbon Dioxide (22-30) mmol/L BUN (9-20) mg/dL Creatinine 1.59 H (0.66-1.25) mg/dL Glucose (74-99) mg/dL Total Bilirubin (0.2-1.3) mg/dL Alkaline Phosphatase (38-126) U/L Total Protein (6.3-8.2) g/dL Albumin (3.5-5.0) g/dL Microbiology - Last 24 Hours (Table) 07/21/23 23:00 Blood Culture - Preliminary Blood 07/21/23 22:45 Blood Culture - Preliminary Blood
[2023-07-24] MEDS: HEPARIN SOD,PORK IN 0.45% NACL 25,000 UNIT in 0.45% NACL 1 250ML.BAG IV SCH (16:24)
[2023-07-24] MEDS ORDERED: APIXABAN 5 MG TAB PO SCH (21:00)
[2023-07-24] MEDS: QUEtiapine 25 MG TAB PO PRN (21:44)
--- NOTE | 2023-07-25 08:15 | XR ---
EXAMINATION TYPE: XR chest 1V DATE OF EXAM: 07/25/2023 HISTORY: Shortness of breath. COMPARISON: 07/24/23 TECHNIQUE: Single view of the chest is submitted. FINDINGS: Demonstrated are scattered senescent parenchymal change. Left-sided pleural effusion is unchanged in size. Associated atelectasis or infiltrate noted. The heart is stable. Hilar and mediastinal structures are within normal limits. Degenerative changes are seen of the dorsal spine. IMPRESSION: 1. Left-sided pleural effusion is unchanged in size. Associated atelectasis or infiltrate noted.
[2023-07-25 11:41] LABS: Blood Urea Nitrogen 56.4 mg/dL (9.0-27.0); Calcium 8.4 mg/dL (8.7-10.3); Carbon Dioxide 17.8 mmol/L (21.6-31.8); Chloride 106 mmol/L (96-109); Glucose 230 mg/dL (70-110); Magnesium 1.7 mg/dL (1.5-2.4); Potassium 4.1 mmol/L (3.5-5.5); Sodium 138 mmol/L (135-145)
[2023-07-25 12:17] LABS: Basophils # (A) 0.01 X 10*3/uL (0.00-0.10); Basophils % (A) 0.1 %; Eosinophils # (A) 0 X 10*3/uL (0.04-0.35); Eosinophils % (A) 0 %; HCT 21.8 % (39.6-50.0); HGB 6.6 g/dL (13.0-17.0); Lymphocytes % (A) 5.1 %; MCH 27.3 pg (27.0-32.0); MCHC 30.3 g/dL (32.0-37.0); MCV 90.1 FL (80.0-97.0); Mean Platelet Volume 9.9 FL (9.5-12.2); Monocytes # (A) 0.94 X 10*3/uL (0.20-1.00); NRBC Per 100 WBC 0.03 X 10*3/uL (0.00-0.01); Neutrophils # (A) 6.32 X 10*3/uL (1.80-7.70); Neutrophils % (A) 80.9 %; Platelet Count 387 X 10*3/uL (140-440); RBC 2.42 X 10*6/uL (4.40-5.60); RDW 16.2 % (11.5-14.5); WBC 7.82 X 10*3/uL (4.50-10.00)
[2023-07-25 13:24] LABS: African American GFR (CKD) 55 (>60 ml/min/1.73 sqM); Non-African American GFR(CKD) 47 (>60 ml/min/1.73 sqM)
[2023-07-25] MEDS: VANCOMYCIN TROUGH DUE 1 EACH MISC MISCELLANE ONE (14:15)
--- NOTE | 2023-07-25 15:51 | P.PN ---
Subjective Progress Note Date: 07/25/23 Patient is an 88-year-old male with past medical history significant for hypertension, hyperlipidemia, paroxysmal atrial fibrillation previously anticoagulated on Eliquis, frequent falls. Patient recently fell from his wheelchair and had sustained a left hip fracture. He underwent a left hip cemented unipolar hemiarthroplasty on 07/05/2023. He was then discharged back to his extended care facility. Patient was sent back in from his ECF yesterday for evaluation of acute dyspnea. He was reportedly diagnosed with pneumonia earlier in the day, and started on doxycycline. When EMS arrived to the [facility], he was hypoxic with an SpO2 of less than 80%. He was also tachypneic and tachycardic and in respiratory distress. He was transferred to our facility on BiPAP. He is currently sitting up in bed, in some respiratory distress. On BiPAP with settings 12/6 and FiO2 of 100%. Respiratory rate is in the mid 30s and tidal volumes are greater than 800. He is unable to provide any information at this time. There is accessory muscle use. ABG done on above-mentioned settings showed a PaO2 of 183, pCO2 of 39, pH of 7.35. Chest x-ray shows a left lower lobe infiltrate and or atelectasis and small left-sided pleural effusion, possibly parapneumonic. CBC on arrival: WBC count of 30.7, hemoglobin 8.9, hematocrit 27.8, platelets 708. CMP on arrival: Sodium 130, potassium 4.9, chloride 97, serum bicarb 19, BUN 59, creatinine 2.09, glucose 106. Normal saline infusing at 130 MLS per hour. LFTs mildly elevated. Troponin 0.027. NT proBNP 5700. There is a component of acute on chronic kidney injury. Negative for influenza, RSV, COVID. Patient's D-dimer was elevated. For this reason a venous Doppler of the lower extremities was ordered, and the patient was found to have a left lower extremity DVT. Patient was previously anticoagulated on Eliquis, however, this has been stopped after his most recent fall and hip fracture. Left hip incision is approximated and clean and dry. No drainage. Hemoglobin is stable at 8.9 g/dL. Patient denies any bright red blood, melanotic stools, or hematemesis. Patient's respiratory status is currently labile, will continue to closely monitor. Patient may need transfer to the intensive care unit. In the emergency department and I had a lengthy discussion with the . The patient is currently on a BiPAP and is tolerating the BiPAP reasonably well with generation of adequate tidal volume above 500. No significant tachypnea. The patient is on a pressure setting of 12/6 and a meters of water and FiO2 has been weaned down.The white cell count from today is 29 with a hemoglobin of 7.6 and a platelet count of 527. Blood gases show a pH of 7.35 with a pCO2 of 39 and pO2 of 183 and this was on FiO2 of 100%. Viral screen has been negative and the procalcitonin level is at 4.2. BUN is at 69 with a creatinine of 2.09. Cultures were sent and the results are still pending for now. The chest x-ray showed a new area of consolidation of the left lower lobe in addition to a small left-sided pleural effusion. Ultrasound of the chest was also ordered and the results were consistent with a small left-sided pleural effusion with a 4.2 cm pocket. 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 Noted the patient was on anticoagulation with Eliquis in the past and this anticoagulation was discontinued because of his frequent falls. Noted the procalcitonin level is elevated at 4.2 On today's evaluation of 07/23/2023, seen the patient for a follow-up. The patient got moved out of the emergency department and the patient is currently on the medical floor. He was taken off the BiPAP this morning and the patient is currently on 2 L of O2 with a pulse ox of 98%. Alert awake and communicating. The white cell count is dropped down to 17.4 with a hemoglobin of 8.2 and a platelet count of 579. Hemodynamically stable. There is also interval improvement in the creatinine which is down to 1.43 with a BUN of 61. Sodium levels at 134. The patient remains on a combination of Zosyn and vancomycin. Remains on bronchodilators. Remains on IV Solu-Medrol 60 mg every 6 hours. The patient is also on IV heparin. PTT is therapeutic at this point in time. No evidence of any bleeding. Awake and alert and communicating. On today's evaluation of 07/24/2023, the patient is being seen for a follow-up. Clinically stable and the patient is currently on liters of oxygen by nasal cannula with a pulse ox of 94%. Repeat chest x-ray was done today and it shows some increase in the left lower lobe pleural effusion. There is also some infiltration/atelectasis. However clinically, the patient is stable. The patient is currently off the BiPAP. He has developed a small left-sided pleural effusion, likely parapneumonic in nature. Ultrasound of the chest was done yesterday showed a 4.2 cm pocket in the left lung. The WBC count is at 10.1 wh ich is improved with a hemoglobin of 7.7 slightly lower compared to yesterday with a platelet count of 537. Rest of the electrolytes are still pending. The patient remains on IV heparin. Remains on Zosyn and vancomycin coverage. No significant tachycardia. The patient is on DuoNeb updrafts. The patient on IV Solu-Medrol. The patient on Zosyn and vancomycin. The patient is on metoprolol 12.5 mg p.o. twice a day. On today's evaluation on 07/25/2023, the patient continues to improve. The white cell count is down to 7.8. The patient remains on 3 L of oxygen by nasal cannula. No significant respite distress. Repeat chest x-ray was done today and shows a stable left-sided pleural effusion that has not changed in size and the patient also has some stable infiltration of the left lung base consistent with pneumonia but small parapneumonic effusion. Hemoglobin is currently down to 6.6. The patient will be given a unit of packed RBC accordingly. Rest of the electrolytes show a creatinine of 1.33 with a BUN of 56 and a sodium levels at 138 with a potassium level of 4.1. The patient remains on IV heparin. He does have a DVT of the left lower extremity. No evidence of any GI bleeding at this point in time while being on IV heparin. Objective - Vital Signs Vital signs: Vital Signs Temp 98.8 F 07/25/23 13:57 Pulse 94 07/25/23 13:57 Resp 19 07/25/23 13:57 BP 104/65 07/25/23 13:57 Pulse Ox 93 L 07/25/23 13:57 FiO2 40 07/23/23 02:57 Intake & Output 07/24/23 07/25/23 07/25/23 18:59 06:59 18:59 Intake Total 600 Output Total 3 Balance 600 -3 Weight 99 kg 101 kg Intake: Intake, IV Titration 600 Amount Piperacillin-Tazobactam 3 100 .375 gm In Sodium Chloride 0.9% 100 ml @ 25 mls/hr IVPB Q8HR [facility] Rx# :[id number] Vancomycin 1,500 mg In 500 Sodium Chloride 0.9% 500 ml 500 ml @ 167 mls/hr IVPB Q24H [facility] Rx#: [id number] Output: Stool 3 Other: Voiding Method Indwelling Catheter Indwelling Catheter Indwelling Catheter - Exam GENERAL EXAM: Anxious, 88-year-old male, currently on 3 L of oxygen by nasal cannula HEAD: Normocephalic and atraumatic EYES: Normal reaction of pupils, equal size. NOSE: Clear with pink turbinates. THROAT: No erythema or exudates. NECK: No masses, no JVD. CHEST: No chest wall deformity. LUNGS: Equal air entry with left lower lobe inspiratory crackles and scattered rhonchi/wheezing. CVS: S1 and S2 normal with no audible murmur, regular rhythm. No extra heart sounds. Tachycardic. ABDOMEN: No hepatosplenomegaly, active bowel sounds, no guarding or rigidity. SPINE: No scoliosis or deformity SKIN: No rashes CENTRAL NERVOUS SYSTEM: No focal deficits, tone is normal in all 4 extremities. Alert and awake and communicating EXTREMITIES: There is no peripheral edema, clubbing, or cyanosis. Peripheral pulses are intact. Left hip incision is approximated, clean and dry, no drai nage. - Labs CBC & Chem 7: 07/25/23 07:39 07/25/23 12:24 Labs: Abnormal Lab Results - Last 24 Hours (Table) 07/25/23 07/25/23 07/25/23 Range/Units 07:39 07:39 07:39 RBC 2.42 L (4.40-5.60) X 10*6/uL Hgb 6.6 A* (13.0-17.0) g/dL Hct 21.8 L (39.6-50.0) % MCHC 30.3 L (32.0-37.0) g/dL RDW 16.2 H (11.5-14.5) % Immature Gran # 0.15 H (0.00-0.04) X 10*3/uL Lymphocytes # 0.40 L (0.90-5.00) X 10*3/uL Eosinophils # 0 L (0.04-0.35) X 10*3/uL NRBC/100 WBC Diff 0.03 H (0.00-0.01) X 10*3/uL APTT 51.4 H (22.0-30.0) sec Carbon Dioxide 17.8 L (21.6-31.8) mmol/L Anion Gap 14.20 H (4.00-12.00) mmol/L BUN 56.4 H (9.0-27.0) mg/dL Creatinine (0.66-1.25) mg/dL Est GFR (CKD-EPI) 44 L (>=60) BUN/Creatinine Ratio 37.60 H (12.00-20.00) Ratio Glucose 230 H (70-110) mg/dL Calcium 8.4 L (8.7-10.3) mg/dL Crossmatch 07/25/23 07/25/23 Range/Units 12:24 14:02 RBC (4.40-5.60) X 10*6/uL Hgb (13.0-17.0) g/dL Hct (39.6-50.0) % MCHC (32.0-37.0) g/dL RDW (11.5-14.5) % Immature Gran # (0.00-0.04) X 10*3/uL Lymphocytes # (0.90-5.00) X 10*3/uL Eosinophils # (0.04-0.35) X 10*3/uL NRBC/100 WBC Diff (0.00-0.01) X 10*3/uL APTT (22.0-30.0) sec Carbon Dioxide (21.6-31.8) mmol/L Anion Gap (4.00-12.00) mmol/L BUN (9.0-27.0) mg/dL Creatinine 1.33 H (0.66-1.25) mg/dL Est GFR (CKD-EPI) (>=60) BUN/Creatinine Ratio (12.00-20.00) Ratio Glucose (70-110) mg/dL Calcium (8.7-10.3) mg/dL Crossmatch See Detail Microbiology - Last 24 Hours (Table) 07/21/23 23:00 Blood Culture - Preliminary Blood 07/21/23 22:45 Blood Culture - Preliminary Blood 07/22/23 19:01 Nasal Screen MRSA/MSSA - Final Nasal Swab Methicillin resist S. aureus Assessment and Plan Plan: Acute hypoxemic respiratory failure, possibly multifactorial, secondary to acute COPD exacerbation and possible left-sided community-acquired pneumonia and left- sided pleural effusion, possibly parapneumonic. Possibility of a hospital- acquired pathogen cannot be completely ruled out. Patient is currently on 3 L of oxygen nasal cannula and his repeat chest x-ray shows a stable left lung infiltrate and stable left-sided pleural effusion which is essentially small and ultrasound pocket was approximately 4.2 cm in size. Acute left lower lobe pneumonia, most likely bacterial infection and the patient procalcitonin level is also elevated. Patient has leukocytosis. Consider bacterial infection the patient will be covered with broad-spectrum antibiotics for now. Patient is currently on a combination of Zosyn and vancomycin, clinically improved and the patient will have a follow-up chest x-ray in the morning Acute leukocytosis, possibly secondary to above, improving Left lower extremity DVT The ultrasound of the lower extremity on the left reveals chronic clot versus partially occlusive thrombus involving the long segment of the left lower extremity. Note that the patient was off his anticoagulants due to his frequent falls., Frequent falls, with recent left hip femoral neck fracture, status/post left hip cemented unipolar hemiarthroplasty on 07/05/2023 History of fall with multiple left-sided rib fractures and pulmonary contusion History of paroxysmal atrial fibrillation, Eliquis has been stopped Normocytic normochromic anemia, hemoglobin stable from recent hospital admission. Acute on chronic kidney disease, creatinine is improved compared to yesterday the patient is recovering from his acute kidney injury Acute on top of chronic anemia with a drop in hemoglobin of 6.6 ,Without evidence of any bleeding History of thoracic level wound/cellulitis, isolated organism at that time was MRSA History of hyperlipidemia History of hypertension History of former tobacco dependence Chronic obstructive pulmonary disease History of alcoholism Plan: Give a unit of packed RBC Anticoagulation has been switched to Eliquis IV heparin has been discontinued Watch for any bleeding complications No evidence of any GI bleed Oxygenation is improved currently on 3 L Continue combination of Zosyn and vancomycin White cell count is improved Reviewed the results of the chest ultrasound and the repeat chest x-ray that showed a stable left-sided pleural effusion Continue combination of DuoNebs [id number], formoterol inhalation, budesonide inhalation, and IV Solu-Medrol continue heparin protocol for his left lower extremity DVT DNR/DNI CODE STATUS
[2023-07-25] MEDS: bisacodyL 10 MG SUPP RECTAL STA (17:30)
--- NOTE | 2023-07-25 18:13 | CDI ---
Documentation Clarification Form Date: 07/25/2023 05:38:29 PM From: Mirella Vásquez RN, CCDS Phone: [phone] Admit Date: 07/22/2023 12:57:00 AM Patient Name: Tank Williamson Visit Number: [id number] Discharge Date: ATTENTION: The Clinical Documentation Specialists (CDI) and [facility] Coding Staff appreciate your assistance in clarifying documentation. Please respond to the clarification below the line at the bottom and electronically sign. The CDI & [facility] Coding staff will review the response and follow-up if needed. Please note: Queries are made part of the Legal Health Record. If you have any questions, please contact the author of this message via ITS. Dr. Mariaelena Paez Community-acquired pneumonia and acute left lobe pneumonia, most likely bacterial infection is documented in the Pulmonary consult and ongoing progress notes starting on 07/22/23 . Additional clarification regarding the type of pneumonia is requested. History/Risk Factors: Coronary Artery Disease (CAD), Hyperlipidemia, Hypertension, Light tobacco smoker Clinical Indicators: 88-year-old man sent from group home to have evaluation for dyspnea. He was diagnosed earlier today with pneumonia and started on doxycycline. EMS on arrival they found the patient to have pulse oximetry less than 80, tachypnea can tachycardic. hey placed the patient on BiPAP 100% oxygen and transported to ER. WBC 29.2, Neutrophils 28.8, Procalitonin level 4.2 Nasal Screen MRSA/MSSA Final: Methicillin resist S. aureus 07/20 VS (21:50) 149/71 120 34 99.2 (ax) 95 BIPAP 07/20 CXR: Chronic parenchyma changes with new small left pleural effusion and left lower lobe acute infiltrate and or atelectasis. 07/21 Chest US: Left pleural effusion pocket size 4.2 cm 07/23 CXR increasing left lower lobe pleural effusion associated atelectasis and or infiltrate. Lung/Breathing assessment: Equal air entry with left lower lobe inspiratory crackles and scattered rhonchi/wheezing. On BiPAP with settings 12/6 and FiO2 of 100%. Significant conversational dyspnea, unable to speak more than 1-2 words at a time. There is accessory muscle use. Treatment Orthopedic Nurse Practitioner, Telemetry DuoNeb inhalers per orders Solu-Medrol 60 MG IV Q 6 HRS 07/21-07/24 Rocephin 2 GM IVPB Once 07/20 then 1GM IVPB 07/21 Azythromycin 500 MG IVPB 07/21-07/24 Vancomycin 1,500 MG IVPB Once 07/21 then 1,500 MG IVPB Q 24 HRS 07/22-07/23 (PTD) Monitor O2 Sat's (titrate) Please clarify the type of pneumonia, if known: [ ] Bacterial Pneumonia, specify causal organism (if known) [ ] Gram Negative Bacterial Pneumonia [ x ] Bacterial Pneumonia Due to Staph [ ] Other bacteria (please specify) [ ] Other, please specify [ ] Unable to determine (Template Last Revised: June 2020) MTDD
[2023-07-25] MEDS: APIXABAN 5 MG TAB PO SCH (20:49)
--- NOTE | 2023-07-26 05:23 | P.PN ---
Subjective Progress Note Date: 07/25/23 Patient is a 88-year-old male with a past medical history of hypertension, hyperlipidemia, paroxysmal atrial fibrillation coronary artery disease nonobstructive, mild cardiomyopathy ejection fraction 45-50 %, history of right tobacco smoker and left hip hemiarthroplasty on 07/05/2023 due to mechanical fa ll. Patient presented from nursing facility due to worsening shortness of breath/dyspnea. Patient was diagnosed with pneumonia and was started on doxycycline. He was placed on oxygen at 4 L via nasal cannula and EMS was called due to hypoxia with pulse ox down to 80% and patient was tachycardic and tachypneic. Patient was placed on BiPAP by EMS and was transferred to ER. Otherwise patient denies any complaints of chest pain. Cough with occasional sputum production. Tmax 101.0 on admission. Patient was recently admitted to due to acute blood loss anemia from 07/11/2023 to 07/12/2023. requiring 1 unit PRBC transfusion. Eliquis was held and was discharged back to care home facility for rehab. Chest x-ray showed chronic parenchymal changes with new small left pleural effusion and left lower lobe acute infiltrates/atelectasis. EKG showed sinus tachycardia with possible left atrial enlargement. Lower extremity venous duplex showed suboptimal study. Long segment left lower extremity DVT is present. Findings reflect chronic clot or partially occlusive thrombus. Correlate clinically. Mild to moderate diffuse subcutaneous edema is seen on images obtained. Laboratory data showed WBC 13.7 hemoglobin 8.9 and platelets 708, D-dimer 4.11 ABG showed pH 7.35 pCO2 39, pO2 183 Sodium 130 potassium 4.9 chloride 97 bicarb is 19 BUN 59 and creatinine 2.09 and blood sugar 106 and lactic acid 3.1 total bilirubin 3.5 and alk phos 268, proBNP 5700, troponin 0.027 and albumin 2.8 Influenza A, B, RSV and COVID-19 PCR not detected. 07/23/2023 Patient is seen and evaluated in follow-up. Patient was continued on BiPAP and is currently maintaining oxygen saturations above 90% on 3 L. Patient continues on IV heparin drip with left lower extremity DVT. VQ scan was ordered as jean t was unable to have CT of the chest for PE evaluation as kidney functions are elevated. Will hold on VQ scan for now as patient unable to tolerate lying flat. Continue IV heparin and will likely need to transition back to Eliquis. 07/24/2023 Patient is seen and evaluated in follow-up today with pulmonary following. Patient continues on 3 L via nasal cannula and has been off of the BiPAP. Fol low-up chest x-ray today shows increasing left lower lobe pleural effusion with associated atelectasis and/or infiltrate. Strongly encourage incentive spirometer although patient needs much encouragement as he is extremely weak and confused at times. Patient continues on IV heparin and will for now as there will be a follow-up chest x-ray in the a.m. and may require a thoracentesis with pulmonary following closely. Will discuss with pulmonary in regards to transitioning to Eliquis or if patient is appropriate for any further anticoagulation. Patient is afebrile with no reported chest pain or worsening shortness of breath. Patient is continued on IV steroids along with antibiotics and DuoNeb breathing treatments. Encouraged oral intake and recommend aspiration precautions with head of the bed elevated 45 degrees at all times. 07/25/2023 Patient is seen this morning currently asleep although arousable. Patient maintained on 3 L via nasal cannula with pulmonary following. Follow-up chest x-ray shows stable effusion and pulmonary reporting no plans for thoracentesis at this time. Patient was continued on IV heparin although will transition to oral Eliquis and monitor for any bleeding. There are no active signs of bleeding at this time although hemoglobin was noted to be 6.6 today. Will transfuse 1 unit of PRBC follow-up on repeat labs. Patient continues on antibiotics sided pneumonia. Patient is afebrile and denies any chest pain or palpitations. Patient has a congested cough and difficulty expectorating. Encouraged incentive spirometer use and sitting up more often. Continue with DuoNeb treatments at this time. Review of systems: Constitutional: No reports of fatigue, fever, or chills Cardiovascular: No reports of chest pain or palpitations Respiratory: No reports of worsening shortness of breath, reports weak cough GI: No reports of nausea, vomiting, or diarrhea : No reports of dysuria or retention Neurovascular: reports of extreme generalized weakness and lower extremity pain with swelling especially the left leg when being moved All medications have been reviewed PHYSICAL EXAMINATION: Patient is lying in the bed. No acute distress, awake alert and oriented x 2, confused at times. Baseline. Has been weaned off BiPAP currently on 3 L via nasal cannula, well-developed, thin built, elderly appearing, ill-appearing HEENT: Normocephalic. Neck is supple. Pupils reactive. Nostrils clear. Oral cavity is moist. Neck reveals no JVD, carotid bruits, or thyromegaly. CHEST EXAMINATION: Trachea is central. Symmetrical expansion. Left basilar coarse sounds. Mild expiratory wheeze.. Crackles noted at the bases CARDIAC: Normal S1, S2 with no gallops. No murmurs ABDOMEN: Soft. Thin. Bowel sounds normal. No organomegaly. No abdominal bru its. Extremities: reveal no edema. No clubbing or cyanosis, bilateral lower extremity swelling worse on the left, foot drop noted on the left as well. Left hip surgical site has scabbing noted with no redness or drainage noted, healing well and approximated Neurologically awake, alert, oriented x 2-3. Diffusely weak Skin: No rash or skin lesions. Psychiatric: Cooperative. Could not be assessed completely Musculoskeletal: No joint swelling or deformity. Assessment: Acute hypoxemic respiratory failure due to left lower lobe pneumonia and left sided small pleural effusion and COPD. Patient was requiring BiPAP on admission. Transitioned to nasal cannula Sepsis secondary to pneumonia, bacterial Acute left lower extremity DVT. Elevated D-dimer level. CT PE could not be done due to elevated creatinine level. Acute kidney injury likely prerenal with possible ATN. CKD stage III. Hypovolemic hyponatremia, secondary to poor oral intake Lactic acidosis 3.1 on admission, secondary to left lower lobe pneumonia, improved History of mechanical fall status post left hip cemented unipolar hemiarthroplasty on 07/05/2023 Recent admission with anemia requiring blood transfusion 1 unit PRBC. Hemoglobin is 6.6 today and will receive 1 unit of PRBC Paroxysmal atrial fibrillation, currently rate controlled currently Eliquis being resumed heparin being discontinued Mild cardiomyopathy with ejection fraction 45 to 50%. EF improved to 55 to 60% as per recent echocardiogram on 07/05/2023 Coronary artery disease nonobstructive Hypertension Hyperlipidemia History of tobacco use History of EtOH abuse GI prophylaxis with PPI DVT prophylaxis, Eliquis No code Plan: Patient was maintained on BiPAP on admission and has transition to 3 L via nasal cannula. Pulmonary following. Continue with DuoNebs, IV Solu-Medrol 60 mg every 6 hourly. Patient was given azithromycin and ceftriaxone in the ER. Antibiotics in the form of Zosyn and vancomycin. Procalcitonin level is elevated. Patient was started on heparin drip due to left lower extremity acute DVT. VQ scan was ordered due to elevated creatinine level to rule out PE. Per pulmonary no need for V/Q at this time. Follow-up chest x-ray ordered for a.m. shows stable left pleural effusion with no plans of thoracentesis at this time. IV heparin being discontinued and Eliquis will be resumed. Monitor for any signs of bleeding Hemoglobin was 6.6 today and will transfuse 1 unit of PRBC and follow-up on repeat labs Recommend PT/OT therapy evaluation Continue with wound custodial medications reviewed and resumed as appropriate Patient having occasional periods of confusion and will continue Seroquel as needed at night low-dose in the event patient becomes agitated. Encouraged opening the shades and blinds to the windows and possibly sitting up out of the bed more often and frequent reorientation. Patient is no code. Will discuss with case management/social work as plan is to return to ECF once cleared by consultations. The impression and plan of care has been dictated by kAila Clemente, Nurse Practitioner as directed. Dr. Lj MD I have performed a history and examination and MDM of this patient, discussed the same with the dictator, and agree with the dictator's assessment and plan as written ,documented as a scribe. Based on total visit time, I have performed more than 50% of the visit. Objective - Vital Signs Vital signs: Vital Signs Temp 97.5 F L 07/26/23 02:38 Pulse 116 H 07/26/23 02:38 Resp 18 07/26/23 02:38 BP 136/83 07/26/23 02:38 Pulse Ox 100 07/26/23 02:38 FiO2 40 07/23/23 02:57 Intake & Output 07/25/23 07/25/23 07/26/23 06:59 18:59 06:59 Intake Total 480 310 Output Total 3 900 325 Balance -3 -420 -15 Weight 101 kg Intake: Oral 480 Blood Product 0 310 Rc As-1 Unit 0 310 [id number] Output: Urine 900 325 Stool 3 Other: Voiding Method Indwelling Catheter Indwelling Catheter Indwelling Catheter - Labs CBC & Chem 7: 07/25/23 07:39 07/25/23 12:24 Labs: Abnormal Lab Results - Last 24 Hours (Table) 07/25/23 07/25/23 07/25/23 Range/Units 07:39 07:39 07:39 RBC 2.42 L (4.40-5.60) X 10*6/uL Hgb 6.6 A* (13.0-17.0) g/dL Hct 21.8 L (39.6-50.0) % MCHC 30.3 L (32.0-37.0) g/dL RDW 16.2 H (11.5-14.5) % Immature Gran # 0.15 H (0.00-0.04) X 10*3/uL Lymphocytes # 0.40 L (0.90-5.00) X 10*3/uL Eosinophils # 0 L (0.04-0.35) X 10*3/uL NRBC/100 WBC Diff 0.03 H (0.00-0.01) X 10*3/uL APTT 51.4 H (22.0-30.0) sec Carbon Dioxide 17.8 L (21.6-31.8) mmol/L Anion Gap 14.20 H (4.00-12.00) mmol/L BUN 56.4 H (9.0-27.0) mg/dL Creatinine (0.66-1.25) mg/dL Est GFR (CKD-EPI) 44 L (>=60) BUN/Creatinine Ratio 37.60 H (12.00-20.00) Ratio Glucose 230 H (70-110) mg/dL Calcium 8.4 L (8.7-10.3) mg/dL Crossmatch 07/25/23 07/25/23 Range/Units 12:24 14:02 RBC (4.40-5.60) X 10*6/uL Hgb (13.0-17.0) g/dL Hct (39.6-50.0) % MCHC (32.0-37.0) g/dL RDW (11.5-14.5) % Immature Gran # (0.00-0.04) X 10*3/uL Lymphocytes # (0.90-5.00) X 10*3/uL Eosinophils # (0.04-0.35) X 10*3/uL NRBC/100 WBC Diff (0.00-0.01) X 10*3/uL APTT (22.0-30.0) sec Carbon Dioxide (21.6-31.8) mmol/L Anion Gap (4.00-12.00) mmol/L BUN (9.0-27.0) mg/dL Creatinine 1.33 H (0.66-1.25) mg/dL Est GFR (CKD-EPI) (>=60) BUN/Creatinine Ratio (12.00-20.00) Ratio Glucose (70-110) mg/dL Calcium (8.7-10.3) mg/dL Crossmatch See Detail Microbiology - Last 24 Hours (Table) 07/21/23 23:00 Blood Culture - Preliminary Blood 07/21/23 22:45 Blood Culture - Preliminary Blood
[2023-07-26 08:52] LABS: Blood Urea Nitrogen 52.8 mg/dL (9.0-27.0); Calcium 8.5 mg/dL (8.7-10.3); Carbon Dioxide 21.2 mmol/L (21.6-31.8); Chloride 107 mmol/L (96-109); Glucose 212 mg/dL (70-110); Magnesium 1.8 mg/dL (1.5-2.4); Potassium 4.1 mmol/L (3.5-5.5); Sodium 140 mmol/L (135-145)
[2023-07-26 08:54] LABS: Basophils # (A) 0 X 10*3/uL (0.00-0.10); Basophils % (A) 0 %; Eosinophils # (A) 0 X 10*3/uL (0.04-0.35); Eosinophils % (A) 0 %; HCT 23.1 % (39.6-50.0); HGB 7.4 g/dL (13.0-17.0); Lymphocytes # (A) 0.39 X 10*3/uL (0.90-5.00); Lymphocytes % (A) 5.1 %; MCH 27.3 pg (27.0-32.0); MCV 85.2 FL (80.0-97.0); Mean Platelet Volume 9.8 FL (9.5-12.2); Monocytes # (A) 1.06 X 10*3/uL (0.20-1.00); Monocytes % (A) 13.7 %; NRBC Per 100 WBC 0 X 10*3/uL (0.00-0.01); Neutrophils # (A) 5.96 X 10*3/uL (1.80-7.70); Neutrophils % (A) 77.3 %; Platelet Count 351 X 10*3/uL (140-440); RBC 2.71 X 10*6/uL (4.40-5.60); RDW 17.1 % (11.5-14.5); WBC 7.71 X 10*3/uL (4.50-10.00)
[2023-07-26] MEDS: methylPREDNISolone SOD SUCCI 125 MG/2 ML VIAL IV SCH (12:32)
--- NOTE | 2023-07-26 15:53 | P.PN ---
Subjective Progress Note Date: 07/26/23 Patient is an 88-year-old male with past medical history significant for hypertension, hyperlipidemia, paroxysmal atrial fibrillation previously anticoagulated on Eliquis, frequent falls. Patient recently fell from his wheelchair and had sustained a left hip fracture. He underwent a left hip cemented unipolar hemiarthroplasty on 07/05/2023. He was then discharged back to his extended care facility. Patient was sent back in from his ECF yesterday for evaluation of acute dyspnea. He was reportedly diagnosed with pneumonia earlier in the day, and started on doxycycline. When EMS arrived to the [facility], he was hypoxic with an SpO2 of less than 80%. He was also tachypneic and tachycardic and in respiratory distress. He was transferred to our facility on BiPAP. He is currently sitting up in bed, in some respiratory distress. On BiPAP with settings 12/6 and FiO2 of 100%. Respiratory rate is in the mid 30s and tidal volumes are greater than 800. He is unable to provide any information at this time. There is accessory muscle use. ABG done on above-mentioned settings showed a PaO2 of 183, pCO2 of 39, pH of 7.35. Chest x-ray shows a left lower lobe infiltrate and or atelectasis and small left-sided pleural effusion, possibly parapneumonic. CBC on arrival: WBC count of 30.7, hemoglobin 8.9, hematocrit 27.8, platelets 708. CMP on arrival: Sodium 130, potassium 4.9, chloride 97, serum bicarb 19, BUN 59, creatinine 2.09, glucose 106. Normal saline infusing at 130 MLS per hour. LFTs mildly elevated. Troponin 0.027. NT proBNP 5700. There is a component of acute on chronic kidney injury. Negative for influenza, RSV, COVID. Patient's D-dimer was elevated. For this reason a venous Doppler of the lower extremities was ordered, and the patient was found to have a left lower extremity DVT. Patient was previously anticoagulated on Eliquis, however, this has been stopped after his most recent fall and hip fracture. Left hip incision is approximated and clean and dry. No drainage. Hemoglobin is stable at 8.9 g/dL. Patient denies any bright red blood, melanotic stools, or hematemesis. Patient's respiratory status is currently labile, will continue to closely monitor. Patient may need transfer to the intensive care unit. In the emergency department and I had a lengthy discussion with the . The patient is currently on a BiPAP and is tolerating the BiPAP reasonably well with generation of adequate tidal volume above 500. No significant tachypnea. The patient is on a pressure setting of 12/6 and a meters of water and FiO2 has been weaned down.The white cell count from today is 29 with a hemoglobin of 7.6 and a platelet count of 527. Blood gases show a pH of 7.35 with a pCO2 of 39 and pO2 of 183 and this was on FiO2 of 100%. Viral screen has been negative and the procalcitonin level is at 4.2. BUN is at 69 with a creatinine of 2.09. Cultures were sent and the results are still pending for now. The chest x-ray showed a new area of consolidation of the left lower lobe in addition to a small left-sided pleural effusion. Ultrasound of the chest was also ordered and the results were consistent with a small left-sided pleural effusion with a 4.2 cm pocket. 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 Noted the patient was on anticoagulation with Eliquis in the past and this anticoagulation was discontinued because of his frequent falls. Noted the procalcitonin level is elevated at 4.2 On today's evaluation of 07/23/2023, seen the patient for a follow-up. The patient got moved out of the emergency department and the patient is currently on the medical floor. He was taken off the BiPAP this morning and the patient is currently on 2 L of O2 with a pulse ox of 98%. Alert awake and communicating. The white cell count is dropped down to 17.4 with a hemoglobin of 8.2 and a platelet count of 579. Hemodynamically stable. There is also interval improvement in the creatinine which is down to 1.43 with a BUN of 61. Sodium levels at 134. The patient remains on a combination of Zosyn and vancomycin. Remains on bronchodilators. Remains on IV Solu-Medrol 60 mg every 6 hours. The patient is also on IV heparin. PTT is therapeutic at this point in time. No evidence of any bleeding. Awake and alert and communicating. On today's evaluation of 07/24/2023, the patient is being seen for a follow-up. Clinically stable and the patient is currently on liters of oxygen by nasal cannula with a pulse ox of 94%. Repeat chest x-ray was done today and it shows some increase in the left lower lobe pleural effusion. There is also some infiltration/atelectasis. However clinically, the patient is stable. The patient is currently off the BiPAP. He has developed a small left-sided pleural effusion, likely parapneumonic in nature. Ultrasound of the chest was done yesterday showed a 4.2 cm pocket in the left lung. The WBC count is at 10.1 wh ich is improved with a hemoglobin of 7.7 slightly lower compared to yesterday with a platelet count of 537. Rest of the electrolytes are still pending. The patient remains on IV heparin. Remains on Zosyn and vancomycin coverage. No significant tachycardia. The patient is on DuoNeb updrafts. The patient on IV Solu-Medrol. The patient on Zosyn and vancomycin. The patient is on metoprolol 12.5 mg p.o. twice a day. On today's evaluation on 07/25/2023, the patient continues to improve. The white cell count is down to 7.8. The patient remains on 3 L of oxygen by nasal cannula. No significant respite distress. Repeat chest x-ray was done today and shows a stable left-sided pleural effusion that has not changed in size and the patient also has some stable infiltration of the left lung base consistent with pneumonia but small parapneumonic effusion. Hemoglobin is currently down to 6.6. The patient will be given a unit of packed RBC accordingly. Rest of the electrolytes show a creatinine of 1.33 with a BUN of 56 and a sodium levels at 138 with a potassium level of 4.1. The patient remains on IV heparin. He does have a DVT of the left lower extremity. No evidence of any GI bleeding at this point in time while being on IV heparin. On today's evaluation on 07/26/2023, the patient is being seen for a follow-up. The patient was given a unit of packed RBC yesterday and the hemoglobin is currently at 7.4. He is on oxygen 3 L with a pulse ox of 92%. He is lethargic and weak. Nevertheless denies having any significant shortness of breath. No chest pain. Remains on Zosyn and vancomycin. Nasal screen for MRSA was positive. Possibility of MRSA pneumonia cannot be completely excluded. The patient also developed a small parapneumonic effusion not amenable for thorace ntesis. He is a DNR/DNI CODE STATUS. Remains on bronchodilators. Remains on steroids. In addition, the patient is experiencing some hematuria at baseline and anticoagulation was stopped. Based on his high risk for anticoagulation and previous history of falls and concern for bleed, anticoagulation was placed on hold and vascular surgery was consulted for IVC filter placement. Objective - Vital Signs Vital signs: Vital Signs Temp 98.4 F 07/26/23 07:45 Pulse 76 07/26/23 12:00 Resp 19 07/26/23 07:45 BP 137/76 07/26/23 07:45 Pulse Ox 95 07/26/23 07:45 FiO2 40 07/23/23 02:57 Intake & Output 07/25/23 07/26/23 07/26/23 18:59 06:59 18:59 Intake Total 480 310 Output Total 900 325 Balance -420 -15 Weight 96 kg Intake: Oral 480 Blood Product 0 310 Rc As-1 Unit 0 310 [id number] Output: Urine 900 325 Other: Voiding Method Indwelling Catheter Indwelling Catheter Indwelling Catheter - Exam GENERAL EXAM: Anxious, 88-year-old male, currently on 3 L of oxygen by nasal cannula HEAD: Normocephalic and atraumatic EYES: Normal reaction of pupils, equal size. NOSE: Clear with pink turbinates. THROAT: No erythema or exudates. NECK: No masses, no JVD. CHEST: No chest wall deformity. LUNGS: Equal air entry with left lower lobe inspiratory crackles and scattered rhonchi/wheezing. CVS: S1 and S2 normal with no audible murmur, regular rhythm. No extra heart sounds. Tachycardic. ABDOMEN: No hepatosplenomegaly, active bowel sounds, no guarding or rigidity. SPINE: No scoliosis or deformity SKIN: No rashes CENTRAL NERVOUS SYSTEM: No focal deficits, tone is normal in all 4 extremities. Alert and awake and communicating EXTREMITIES: There is no peripheral edema, clubbing, or cyanosis. Peripheral pulses are intact. Left hip incision is approximated, clean and dry, no drainage. - Labs CBC & Chem 7: 07/26/23 05:49 07/26/23 05:49 Labs: Abnormal Lab Results - Last 24 Hours (Table) 07/25/23 07/25/23 07/26/23 Range/Units 12:24 14:02 05:49 RBC 2.71 L (4.40-5.60) X 10*6/uL Hgb 7.4 L (13.0-17.0) g/dL Hct 23.1 L (39.6-50.0) % RDW 17.1 H (11.5-14.5) % Immature Gran # 0.30 H (0.00-0.04) X 10*3/uL Lymphocytes # 0.39 L (0.90-5.00) X 10*3/uL Monocytes # 1.06 H (0.20-1.00) X 10*3/uL Eosinophils # 0 L (0.04-0.35) X 10*3/uL Carbon Dioxide (21.6-31.8) mmol/L BUN (9.0-27.0) mg/dL Creatinine 1.33 H (0.66-1.25) mg/dL Est GFR (CKD-EPI) (>=60) BUN/Creatinine Ratio (12.00-20.00) Ratio Glucose (70-110) mg/dL Calcium (8.7-10.3) mg/dL Crossmatch See Detail 07/26/23 Range/Units 05:49 RBC (4.40-5.60) X 10*6/uL Hgb (13.0-17.0) g/dL Hct (39.6-50.0) % RDW (11.5-14.5) % Immature Gran # (0.00-0.04) X 10*3/uL Lymphocytes # (0.90-5.00) X 10*3/uL Monocytes # (0.20-1.00) X 10*3/uL Eosinophils # (0.04-0.35) X 10*3/uL Carbon Dioxide 21.2 L (21.6-31.8) mmol/L BUN 52.8 H (9.0-27.0) mg/dL Creatinine (0.66-1.25) mg/dL Est GFR (CKD-EPI) 44 L (>=60) BUN/Creatinine Ratio 35.20 H (12.00-20.00) Ratio Glucose 212 H (70-110) mg/dL Calcium 8.5 L (8.7-10.3) mg/dL Crossmatch Microbiology - Last 24 Hours (Table) 07/21/23 23:00 Blood Culture - Preliminary Blood 07/21/23 22:45 Blood Culture - Preliminary Blood Assessment and Plan Plan: Acute hypoxemic respiratory failure, possibly multifactorial, secondary to acute COPD exacerbation and possible left-sided community-acquired pneumonia and left- sided pleural effusion, possibly parapneumonic. Possibility of a hospital- acquired pathogen cannot be completely ruled out. Patient is currently on 3 L of oxygen nasal cannula and his repeat chest x-ray shows a stable left lung infiltrate and stable left-sided pleural effusion which is essentially small and ultrasound pocket was approximately 4.2 cm in size. Acute left lower lobe pneumonia, most likely bacterial infection and the patient procalcitonin level is also elevated. Patient has leukocytosis. Consider bacterial infection the patient will be covered with broad-spectrum antibiotics for now. 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 Note that the patient was off his anticoagulants due to his frequent falls., Frequent falls, with recent left hip femoral neck fracture, status/post left hip cemented unipolar hemiarthroplasty on 07/05/2023 History of fall with multiple left-sided rib fractures and pulmonary contusion History of paroxysmal atrial fibrillation, Eliquis has been stopped Normocytic normochromic anemia, hemoglobin stable from recent hospital admission. Acute on chronic kidney disease, creatinine is improved compared to yesterday the patient is recovering from his acute kidney injury Acute on top of chronic anemia with a drop in hemoglobin of 6.6 ,Without evidence of any bleeding History of thoracic level wound/cellulitis, isolated organism at that time was MRSA History of hyperlipidemia History of hypertension History of former tobacco dependence Chronic obstructive pulmonary disease History of alcoholism Hematuria Plan: Hemoglobin has responded to a unit of packed RBC. Nevertheless, due to concerns of fall and ongoing hematuria, anticoagulation has been placed on hold and vascular surgery has been consulted for a possibility of an IVC filter placement. Keep anticoagulation on hold Watch for any bleeding complications No evidence of any GI bleed Oxygenation is improved currently on 3 L Continue combination of Zosyn and vancomycin White cell count is improved Reviewed the results of the chest ultrasound and the repeat chest x-ray that showed a stable left-sided pleural effusion Repeat chest x-ray in the morning Continue combination of DuoNebs [id number], formoterol inhalation, budesonide inhalation, and IV Solu-Medrol continue heparin protocol for his left lower extremity DVT DNR/DNI CODE STATUS
[2023-07-27 07:45] LABS: Anisocytosis Slight; HCT 26.3 % (39.0-53.0); Hypochromasia Marked; MCH 27.3 pg (25.0-35.0); MCHC 30.4 g/dL (31.0-37.0); Mean Platelet Volume 7.8; Platelet Count 329 k/uL (150-450); RBC 2.93 m/uL (4.30-5.90); RDW 16.6 % (11.5-15.5); WBC 8.2 k/uL (3.8-10.6)
[2023-07-27 07:57] LABS: African American GFR (CKD) 61 (>60 ml/min/1.73 sqM); Anion Gap 8 mmol/L; Blood Urea Nitrogen 54 mg/dL (9-20); Calcium 8.3 mg/dL (8.4-10.2); Carbon Dioxide 22 mmol/L (22-30); Chloride 110 mmol/L (98-107); Glucose 183 mg/dL (74-99); Magnesium 1.7 mg/dL (1.6-2.3); Non-African American GFR(CKD) 52 (>60 ml/min/1.73 sqM); Potassium 3.7 mmol/L (3.5-5.1); Sodium 140 mmol/L (137-145)
[2023-07-27 08:56] LABS: Lymphocytes # (M) 0.33 k/uL (1.0-4.8); Metamyelocytes # (M) 0.08 k/uL (0); Metamyelocytes % 1 %; Monocytes # (M) 0.74 k/uL (0-1.0); Myelocytes # (M) 0.08 k/uL (0); Myelocytes % 1 %; Neutrophils # (M) 7.05 k/uL (1.3-7.7); Neutrophils % (M) 86 %; Nucleated Red Blood Cells 0 /100 WBC (0-0); Total Cells Counted 200
[2023-07-27 08:57] LABS: Anisocytosis (M) Present; Hypochromasia (M) Present
--- NOTE | 2023-07-27 10:13 | P.PN ---
Subjective Progress Note Date: 07/26/23 Patient is a 88-year-old male with a past medical history of hypertension, hyperlipidemia, paroxysmal atrial fibrillation coronary artery disease nonobstructive, mild cardiomyopathy ejection fraction 45-50 %, history of right tobacco smoker and left hip hemiarthroplasty on 07/05/2023 due to mechanical fa ll. Patient presented from nursing facility due to worsening shortness of breath/dyspnea. Patient was diagnosed with pneumonia and was started on doxycycline. He was placed on oxygen at 4 L via nasal cannula and EMS was called due to hypoxia with pulse ox down to 80% and patient was tachycardic and tachypneic. Patient was placed on BiPAP by EMS and was transferred to ER. Otherwise patient denies any complaints of chest pain. Cough with occasional sputum production. Tmax 101.0 on admission. Patient was recently admitted to due to acute blood loss anemia from 07/11/2023 to 07/12/2023. requiring 1 unit PRBC transfusion. Eliquis was held and [facility]. Chest x-ray showed chronic parenchymal changes with new small left pleural effusion and left lower lobe acute infiltrates/atelectasis. EKG showed sinus tachycardia with possible left atrial enlargement. Lower extremity venous duplex showed suboptimal study. Long segment left lower extremity DVT is present. Findings reflect chronic clot or partially occlusive thrombus. Correlate clinically. Mild to moderate diffuse subcutaneous edema is seen on images obtained. Laboratory data showed WBC 13.7 hemoglobin 8.9 and platelets 708, D-dimer 4.11 ABG showed pH 7.35 pCO2 39, pO2 183 Sodium 130 potassium 4.9 chloride 97 bicarb is 19 BUN 59 and creatinine 2.09 and blood sugar 106 and lactic acid 3.1 total bilirubin 3.5 and alk phos 268, proBNP 5700, troponin 0.027 and albumin 2.8 Influenza A, B, RSV and COVID-19 PCR not detected. 07/23/2023 Patient is seen and evaluated in follow-up. Patient was continued on BiPAP and is currently maintaining oxygen saturations above 90% on 3 L. Patient continues on IV heparin drip with left lower extremity DVT. VQ scan was ordered as jean t was unable to have CT of the chest for PE evaluation as kidney functions are elevated. Will hold on VQ scan for now as patient unable to tolerate lying flat. Continue IV heparin and will likely need to transition back to Eliquis. 07/24/2023 Patient is seen and evaluated in follow-up today with pulmonary following. Patient continues on 3 L via nasal cannula and has been off of the BiPAP. Fol low-up chest x-ray today shows increasing left lower lobe pleural effusion with associated atelectasis and/or infiltrate. Strongly encourage incentive spirometer although patient needs much encouragement as he is extremely weak and confused at times. Patient continues on IV heparin and will for now as there will be a follow-up chest x-ray in the a.m. and may require a thoracentesis with pulmonary following closely. Will discuss with pulmonary in regards to transitioning to Eliquis or if patient is appropriate for any further anticoagulation. Patient is afebrile with no reported chest pain or worsening shortness of breath. Patient is continued on IV steroids along with antibiotics and DuoNeb breathing treatments. Encouraged oral intake and recommend aspiration precautions with head of the bed elevated 45 degrees at all times. 07/25/2023 Patient is seen this morning currently asleep although arousable. Patient maintained on 3 L via nasal cannula with pulmonary following. Follow-up chest x-ray shows stable effusion and pulmonary reporting no plans for thoracentesis at this time. Patient was continued on IV heparin although will transition to oral Eliquis and monitor for any bleeding. There are no active signs of bleeding at this time although hemoglobin was noted to be 6.6 today. Will transfuse 1 unit of PRBC follow-up on repeat labs. Patient continues on antibiotics sided pneumonia. Patient is afebrile and denies any chest pain or palpitations. Patient has a congested cough and difficulty expectorating. Encouraged incentive spirometer use and sitting up more often. Continue with DuoNeb treatments at this time. 07/26/2023 Patient is seen and evaluated in follow-up status post 1 unit of PRBC. Hemoglobin is 7.4 today with no active bleeding noted. Patient continues on DuoNeb treatments and will continue on antibiotics with pulmonary following closely. So provide I Review of systems: Constitutional: No reports of fatigue, fever, or chills Cardiovascular: No reports of chest pain or palpitations Respiratory: No reports of worsening shortness of breath, reports weak cough GI: No reports of nausea, vomiting, or diarrhea : No reports of dysuria or retention Neurovascular: reports of extreme generalized weakness and lower extremity pain with swelling especially the left leg when being moved All medications have been reviewed PHYSICAL EXAMINATION: Patient is lying in the bed. No acute distress, awake alert and oriented x 2, confused at times. Baseline. Has been weaned off BiPAP currently on 3 L via nasal cannula, well-developed, thin built, elderly appearing, ill-appearing HEENT: Normocephalic. Neck is supple. Pupils reactive. Nostrils clear. Oral cavity is moist. Neck reveals no JVD, carotid bruits, or thyromegaly. CHEST EXAMINATION: Trachea is central. Symmetrical expansion. Left basilar coarse sounds. Mild expiratory wheeze.. Crackles noted at the bases CARDIAC: Normal S1, S2 with no gallops. No murmurs ABDOMEN: Soft. Thin. Bowel sounds normal. No organomegaly. No abdominal bruits. Extremities: reveal no edema. No clubbing or cyanosis, bilateral lower extremity swelling worse on the left, foot drop noted on the left as well. Left hip surgical site has scabbing noted with no redness or drainage noted, healing well and approximated Neurologically awake, alert, oriented x 2-3. Diffusely weak Skin: No rash or skin lesions. Psychiatric: Cooperative. Could not be assessed completely Musculoskeletal: No joint swelling or deformity. Assessment: Acute hypoxemic respiratory failure due to left lower lobe pneumonia and left sided small pleural effusion and COPD. Patient was requiring BiPAP on admission. Transitioned to nasal cannula Acute on chronic anemia, acute blood loss secondary to anticoagulation and hematuria, no GI bleed noted Hematuria, possibly secondary to resumption of anticoagulation versus possible as patient does occasionally pull at IVs and tubules. Sepsis secondary to pneumonia, bacterial Acute left lower extremity DVT. Elevated D-dimer level. CT PE could not be done due to elevated creatinine level. Acute kidney injury likely prerenal with possible ATN. CKD stage III. Hypovolemic hyponatremia, secondary to poor oral intake Lactic acidosis 3.1 on admission, secondary to left lower lobe pneumonia, improved History of mechanical fall status post left hip cemented unipolar h emiarthroplasty on 07/05/2023 Recent admission with anemia requiring blood transfusion 1 unit PRBC. Hemoglobin is 6.6 today and will receive 1 unit of PRBC Paroxysmal atrial fibrillation, currently rate controlled currently Eliquis being resumed heparin being discontinued Mild cardiomyopathy with ejection fraction 45 to 50%. EF improved to 55 to 60% as per recent echocardiogram on 07/05/2023 Coronary artery disease nonobstructive Hypertension Hyperlipidemia History of tobacco use History of EtOH abuse GI prophylaxis with PPI DVT prophylaxis, Eliquis No code Plan: Patient was maintained on BiPAP on admission and has transition to 3 L via nasal cannula. Pulmonary following. Continue with DuoNebs, IV Solu-Medrol 60 mg every 6 hourly. Patient was given azithromycin and ceftriaxone in the ER. Antibiotics in the form of Zosyn and vancomycin. Procalcitonin level is elevated. Patient was started on heparin drip due to left lower extremity acute DVT. VQ scan was ordered due to elevated creatinine level to rule out PE. Per pulmonary no need for V/Q at this time. Follow-up chest x-ray ordered for a.m. shows stable left pleural effusion with no plans of thoracentesis at this time. IV heparin was discontinued and Eliquis was resumed. There is noted hematuria noted in the [place] and will hold eliquis and consult vascular surgery for possible IVC filter placement as patient appears to not be a good candidate for anticoagulation given continued significant anemia with bleeding, frequent falls. Will await consult and appreciate input and recommendations. Hemoglobin was 7.4 today and will monitor closely and follow-up with repeat labs. Transfuse if 7 or less. Recommend PT/OT therapy evaluation Continue with wound [facility] medications reviewed and resumed as appropriate Patient having occasional periods of confusion and will continue Seroquel as needed at night low-dose in the event patient becomes agitated. Encouraged opening the shades and blinds to the windows and possibly sitting up out of the bed more often and frequent reorientation. Patient is no code. Will discuss with case management/social work as plan is to return to [facility] once cleared by consultations. Patient will require insurance authorization. The impression and plan of care has been dictated by Akila Clemente Nurse Practitioner as directed. Dr. Lj MD I have performed a history and examination and MDM of this patient, discussed the same with the dictator, and agree with the dictator's assessment and plan as written ,documented as a scribe. Based on total visit time, I have performed more than 50% of the visit. Objective - Vital Signs Vital signs: Vital Signs Temp 98.4 F 07/26/23 07:45 Pulse 87 07/26/23 08:27 Resp 19 07/26/23 07:45 BP 137/76 07/26/23 07:45 Pulse Ox 95 07/26/23 07:45 FiO2 40 07/23/23 02:57 Intake & Output 07/25/23 07/26/23 07/26/23 18:59 06:59 18:59 Intake Total 480 310 Output Total 900 325 Balance -420 -15 Weight 96 kg Intake: Oral 480 Blood Product 0 310 Rc As-1 Unit 0 310 [id number] Output: Urine 900 325 Other: Voiding Method Indwelling Catheter Indwelling Catheter - Labs CBC & Chem 7: 07/27/23 07:32 07/27/23 07:27 Labs: Abnormal Lab Results - Last 24 Hours (Table) 07/25/23 07/25/23 07/25/23 Range/Units 07:39 07:39 12:24 RBC 2.42 L (4.40-5.60) X 10*6/uL Hgb 6.6 A* (13.0-17.0) g/dL Hct 21.8 L (39.6-50.0) % MCHC 30.3 L (32.0-37.0) g/dL RDW 16.2 H (11.5-14.5) % Immature Gran # 0.15 H (0.00-0.04) X 10*3/uL Lymphocytes # 0.40 L (0.90-5.00) X 10*3/uL Monocytes # (0.20-1.00) X 10*3/uL Eosinophils # 0 L (0.04-0.35) X 10*3/uL NRBC/100 WBC Diff 0.03 H (0.00-0.01) X 10*3/uL Carbon Dioxide 17.8 L (21.6-31.8) mmol/L Anion Gap 14.20 H (4.00-12.00) mmol/L BUN 56.4 H (9.0-27.0) mg/dL Creatinine 1.33 H (0.66-1.25) mg/dL Est GFR (CKD-EPI) 44 L (>=60) BUN/Creatinine Ratio 37.60 H (12.00-20.00) Ratio Glucose 230 H (70-110) mg/dL Calcium 8.4 L (8.7-10.3) mg/dL Crossmatch 07/25/23 07/26/23 07/26/23 Range/Units 14:02 05:49 05:49 RBC 2.71 L (4.40-5.60) X 10*6/uL Hgb 7.4 L (13.0-17.0) g/dL Hct 23.1 L (39.6-50.0) % MCHC (32.0-37.0) g/dL RDW 17.1 H (11.5-14.5) % Immature Gran # 0.30 H (0.00-0.04) X 10*3/uL Lymphocytes # 0.39 L (0.90-5.00) X 10*3/uL Monocytes # 1.06 H (0.20-1.00) X 10*3/uL Eosinophils # 0 L (0.04-0.35) X 10*3/uL NRBC/100 WBC Diff (0.00-0.01) X 10*3/uL Carbon Dioxide 21.2 L (21.6-31.8) mmol/L Anion Gap (4.00-12.00) mmol/L BUN 52.8 H (9.0-27.0) mg/dL Creatinine (0.66-1.25) mg/dL Est GFR (CKD-EPI) 44 L (>=60) BUN/Creatinine Ratio 35.20 H (12.00-20.00) Ratio Glucose 212 H (70-110) mg/dL Calcium 8.5 L (8.7-10.3) mg/dL Crossmatch See Detail Microbiology - Last 24 Hours (Table) 07/21/23 23:00 Blood Culture - Preliminary Blood 07/21/23 22:45 Blood Culture - Preliminary Blood
--- NOTE | 2023-07-27 13:26 | XR ---
EXAMINATION TYPE: XR chest 1V DATE OF EXAM: 07/27/2023 7:32 AM CLINICAL INDICATION:Male, 88 years old with history of Pneumonia follow-up; [facility] COMPARISON: 07/25/2023 and before TECHNIQUE: XR chest 1V Portable AP radiograph of the chest.. FINDINGS: Scattered senescent parenchymal changes. Left-sided pleural/parenchymal opacity suggesting small to moderate pleural effusion with adjacent in filtrate or atelectasis appears unchanged. No evidence of pneumothorax. Right lung is stable. Cardiomediastinal silhouette is unchanged. Mildly tortuous partially calcified aorta. Heart likely mi ldly enlarged. No acute osseous abnormality. Mild degenerative changes shoulders and spine. IMPRESSION: Unchanged left pleural effusion with associated atelectasis or infiltrate.
--- NOTE | 2023-07-27 16:29 | P.PN ---
Subjective Progress Note Date: 07/27/23 Patient is an 88-year-old male with past medical history significant for hypertension, hyperlipidemia, paroxysmal atrial fibrillation previously anticoagulated on Eliquis, frequent falls. Patient recently fell from his wheelchair and had sustained a left hip fracture. He underwent a left hip cemented unipolar hemiarthroplasty on 07/05/2023. He was then discharged back to his extended care facility. Patient was sent back in from his ECF yesterday for evaluation of acute dyspnea. He was reportedly diagnosed with pneumonia earlier in the day, and started on doxycycline. When EMS arrived to the [facility], he was hypoxic with an SpO2 of less than 80%. He was also tachypneic and tachycardic and in respiratory distress. He was transferred to our facility on BiPAP. He is currently sitting up in bed, in some respiratory distress. On BiPAP with settings 12/6 and FiO2 of 100%. Respiratory rate is in the mid 30s and tidal volumes are greater than 800. He is unable to provide any information at this time. There is accessory muscle use. ABG done on above-mentioned settings showed a PaO2 of 183, pCO2 of 39, pH of 7.35. Chest x-ray shows a left lower lobe infiltrate and or atelectasis and small left-sided pleural effusion, possibly parapneumonic. CBC on arrival: WBC count of 30.7, hemoglobin 8.9, hematocrit 27.8, platelets 708. CMP on arrival: Sodium 130, potassium 4.9, chloride 97, serum bicarb 19, BUN 59, creatinine 2.09, glucose 106. Normal saline infusing at 130 MLS per hour. LFTs mildly elevated. Troponin 0.027. NT proBNP 5700. There is a component of acute on chronic kidney injury. Negative for influenza, RSV, COVID. Patient's D-dimer was elevated. For this reason a venous Doppler of the lower extremities was ordered, and the patient was found to have a left lower extremity DVT. Patient was previously anticoagulated on Eliquis, however, this has been stopped after his most recent fall and hip fracture. Left hip incision is approximated and clean and dry. No drainage. Hemoglobin is stable at 8.9 g/dL. Patient denies any bright red blood, melanotic stools, or hematemesis. Patient's respiratory status is currently labile, will continue to closely monitor. Patient may need transfer to the intensive care unit. In the emergency department and I had a lengthy discussion with the . The patient is currently on a BiPAP and is tolerating the BiPAP reasonably well with generation of adequate tidal volume above 500. No significant tachypnea. The patient is on a pressure setting of 12/6 and a meters of water and FiO2 has been weaned down.The white cell count from today is 29 with a hemoglobin of 7.6 and a platelet count of 527. Blood gases show a pH of 7.35 with a pCO2 of 39 and pO2 of 183 and this was on FiO2 of 100%. Viral screen has been negative and the procalcitonin level is at 4.2. BUN is at 69 with a creatinine of 2.09. Cultures were sent and the results are still pending for now. The chest x-ray showed a new area of consolidation of the left lower lobe in addition to a small left-sided pleural effusion. Ultrasound of the chest was also ordered and the results were consistent with a small left-sided pleural effusion with a 4.2 cm pocket. 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 Noted the patient was on anticoagulation with Eliquis in the past and this anticoagulation was discontinued because of his frequent falls. Noted the procalcitonin level is elevated at 4.2 On today's evaluation of 07/23/2023, seen the patient for a follow-up. The patient got moved out of the emergency department and the patient is currently on the medical floor. He was taken off the BiPAP this morning and the patient is currently on 2 L of O2 with a pulse ox of 98%. Alert awake and communicating. The white cell count is dropped down to 17.4 with a hemoglobin of 8.2 and a platelet count of 579. Hemodynamically stable. There is also interval improvement in the creatinine which is down to 1.43 with a BUN of 61. Sodium levels at 134. The patient remains on a combination of Zosyn and vancomycin. Remains on bronchodilators. Remains on IV Solu-Medrol 60 mg every 6 hours. The patient is also on IV heparin. PTT is therapeutic at this point in time. No evidence of any bleeding. Awake and alert and communicating. On today's evaluation of 07/24/2023, the patient is being seen for a follow-up. Clinically stable and the patient is currently on liters of oxygen by nasal cannula with a pulse ox of 94%. Repeat chest x-ray was done today and it shows some increase in the left lower lobe pleural effusion. There is also some infiltration/atelectasis. However clinically, the patient is stable. The patient is currently off the BiPAP. He has developed a small left-sided pleural effusion, likely parapneumonic in nature. Ultrasound of the chest was done yesterday showed a 4.2 cm pocket in the left lung. The WBC count is at 10.1 wh ich is improved with a hemoglobin of 7.7 slightly lower compared to yesterday with a platelet count of 537. Rest of the electrolytes are still pending. The patient remains on IV heparin. Remains on Zosyn and vancomycin coverage. No significant tachycardia. The patient is on DuoNeb updrafts. The patient on IV Solu-Medrol. The patient on Zosyn and vancomycin. The patient is on metoprolol 12.5 mg p.o. twice a day. On today's evaluation on 07/25/2023, the patient continues to improve. The white cell count is down to 7.8. The patient remains on 3 L of oxygen by nasal cannula. No significant respite distress. Repeat chest x-ray was done today and shows a stable left-sided pleural effusion that has not changed in size and the patient also has some stable infiltration of the left lung base consistent with pneumonia but small parapneumonic effusion. Hemoglobin is currently down to 6.6. The patient will be given a unit of packed RBC accordingly. Rest of the electrolytes show a creatinine of 1.33 with a BUN of 56 and a sodium levels at 138 with a potassium level of 4.1. The patient remains on IV heparin. He does have a DVT of the left lower extremity. No evidence of any GI bleeding at this point in time while being on IV heparin. On today's evaluation on 07/26/2023, the patient is being seen for a follow-up. The patient was given a unit of packed RBC yesterday and the hemoglobin is currently at 7.4. He is on oxygen 3 L with a pulse ox of 92%. He is lethargic and weak. Nevertheless denies having any significant shortness of breath. No chest pain. Remains on Zosyn and vancomycin. Nasal screen for MRSA was positive. Possibility of MRSA pneumonia cannot be completely excluded. The patient also developed a small parapneumonic effusion not amenable for thorace ntesis. He is a DNR/DNI CODE STATUS. Remains on bronchodilators. Remains on steroids. In addition, the patient is experiencing some hematuria at baseline and anticoagulation was stopped. Based on his high risk for anticoagulation and previous history of falls and concern for bleed, anticoagulation was placed on hold and vascular surgery was consulted for IVC filter placement. On today's evaluation, the patient is essentially unchanged remains on 3 L of oxygen by nasal cannula with a pulse ox of 97%. Chest x-ray was repeated this morning and the patient has an unchanged left-sided pleural effusion and left lower lobe consolidation. Remains on Zosyn and vancomycin. Labs from today ted ws a white cell count of 8 with a hemoglobin of 8 and a platelet count of 329. Electrolytes are within normal limits from yesterday. Creatinine is down to 1.2. No active hematuria and patient will be placed back on IV heparin pending vascular surgery consult Objective - Vital Signs Vital signs: Vital Signs Temp 98.4 F 07/27/23 12:25 Pulse 85 07/27/23 15:31 Resp 19 07/27/23 12:55 BP 137/69 07/27/23 12:25 Pulse Ox 97 07/27/23 12:55 FiO2 40 07/23/23 02:57 Intake & Output 07/26/23 07/27/23 07/27/23 18:59 06:59 18:59 Intake Total 480 Output Total 600 602 Balance -120 -602 Weight 101 kg Intake: Oral 480 Output: Urine 600 600 Stool 2 Other: Voiding Method Indwelling Catheter Indwelling Catheter Indwelling Catheter # Voids 0 # Bowel Movements 1 1 - Exam GENERAL EXAM: Anxious, 88-year-old male, currently on 3 L of oxygen by nasal cannula HEAD: Normocephalic and atraumatic EYES: Normal reaction of pupils, equal size. NOSE: Clear with pink turbinates. THROAT: No erythema or exudates. NECK: No masses, no JVD. CHEST: No chest wall deformity. LUNGS: Equal air entry with left lower lobe inspiratory crackles and scattered rhonchi/wheezing. CVS: S1 and S2 normal with no audible murmur, regular rhythm. No extra heart sounds. Tachycardic. ABDOMEN: No hepatosplenomegaly, active bowel sounds, no guarding or rigidity. SPINE: No scoliosis or deformity SKIN: No rashes CENTRAL NERVOUS SYSTEM: No focal deficits, tone is normal in all 4 extremities. Alert and awake and communicating EXTREMITIES: There is no peripheral edema, clubbing, or cyanosis. Peripheral pulses are intact. Left hip incision is approximated, clean and dry, no drainage. - Labs CBC & Chem 7: 07/27/23 07:32 07/27/23 07:27 Labs: Abnormal Lab Results - Last 24 Hours (Table) 07/27/23 07/27/23 Range/Units 07:27 07:32 RBC 2.93 L (4.30-5.90) m/uL Hgb 8.0 L (13.0-17.5) gm/dL Hct 26.3 L (39.0-53.0) % MCHC 30.4 L (31.0-37.0) g/dL RDW 16.6 H (11.5-15.5) % Lymphocytes # (Manual) 0.33 L (1.0-4.8) k/uL Metamyelocytes # (Man) 0.08 H (0) k/uL Myelocytes # (Manual) 0.08 H (0) k/uL Chloride 110 H (98-107) mmol/L BUN 54 H (9-20) mg/dL Glucose 183 H (74-99) mg/dL Calcium 8.3 L (8.4-10.2) mg/dL Microbiology - Last 24 Hours (Table) 07/21/23 23:00 Blood Culture - Final Blood 07/21/23 22:45 Blood Culture - Final Blood Assessment and Plan Plan: Acute hypoxemic respiratory failure, possibly multifactorial, secondary to acute COPD exacerbation and possible left-sided community-acquired pneumonia and left- sided pleural effusion, possibly parapneumonic. Possibility of a hospital- acquired pathogen cannot be completely ruled out. Patient is currently on 3 L of oxygen nasal cannula and his repeat chest x-ray shows a stable left lung infiltrate and stable left-sided pleural effusion which is essentially small and ultrasound pocket was approximately 4.2 cm in size. Acute left lower lobe pneumonia, most likely bacterial infection and the patient procalcitonin level is also elevated. Patient has leukocytosis. Consider bacterial infection the patient will be covered with broad-spectrum antibiotics for now. 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 Acute leukocytosis, possibly secondary to above, improving Left lower extremity DVT The ultrasound of the lower extremity on the left reveals chronic clot versus partially occlusive thrombus involving the long s egment of the left lower extremity. Note that the patient was off his anticoagulants due to his frequent falls., Frequent falls, with recent left hip femoral neck fracture, status/post left hip cemented unipolar hemiarthroplasty on 07/05/2023 History of fall with multiple left-sided rib fractures and pulmonary contusion History of paroxysmal atrial fibrillation, Eliquis has been stopped Normocytic normochromic anemia, hemoglobin stable from recent hospital admission. Acute on chronic kidney disease, creatinine is improved compared to yesterday the patient is recovering from his acute kidney injury Acute on top of chronic anemia with a drop in hemoglobin of 6.6 ,Without evidence of any bleeding History of thoracic level wound/cellulitis, isolated organism at that time was MRSA History of hyperlipidemia History of hypertension History of former tobacco dependence Chronic obstructive pulmonary disease History of alcoholism Hematuria Plan: Chest x-ray findings are stable with stable left lower lobe consolidation with left-sided pleural effusion Oxygenation is stable Hemoglobin has responded to a unit of packed RBC. Nevertheless, due to concerns of fall and ongoing hematuria, anticoagulation has been placed on hold and vascular surgery has been consulted for a possibility of an IVC filter placement. No active hematuria for now. Will restart IV heparin low intensity pending vascular surgery consultation. Watch for any bleeding complications No evidence of any GI bleed Oxygenation is improved currently on 3 L Continue combination of Zosyn and vancomycin White cell count is improved Reviewed the results of the chest ultrasound and the repeat chest x-ray that sh owed a stable left-sided pleural effusion Repeat chest x-ray in the morning Continue combination of DuoNebs [id number], formoterol inhalation, budesonide inhalation, and IV Solu-Medrol DNR/DNI CODE STATUS
[2023-07-27 17:23] LABS: Anisocytosis Slight; Basophils % (A) 0 %; Eosinophils % (A) 0 %; HCT 25.5 % (39.0-53.0); HGB 8.1 gm/dL (13.0-17.5); Hypochromasia Marked; Lymphocytes # (A) 0.3 k/uL (1.0-4.8); Lymphocytes % (A) 4 %; MCH 28.6 pg (25.0-35.0); MCHC 31.8 g/dL (31.0-37.0); MCV 89.8 fL (80.0-100.0); Mean Platelet Volume 8.5; Monocytes # (A) 0.5 k/uL (0-1.0); Monocytes % (A) 6 %; Neutrophils # (A) 6.8 k/uL (1.3-7.7); Neutrophils % (A) 85 %; Platelet Count 288 k/uL (150-450); RBC 2.84 m/uL (4.30-5.90); RDW 16.8 % (11.5-15.5)
[2023-07-27 17:36] LABS: INR 1.3 (<1.2); Partial Thromboplastin Time 28.4 sec (22.0-30.0); Prothrombin Time 13.3 sec (10.0-12.5)
[2023-07-27] MEDS: HEPARIN SODIUM 1,000 UN/ML (10ML VL) IV ONE (17:36)
[2023-07-27] MEDS: HEPARIN SOD,PORK IN 0.45% NACL 25,000 UNIT in 0.45% NACL 1 250ML.BAG IV SCH (17:37)
[2023-07-28] MEDS: HEPARIN SODIUM 1,000 UN/ML (10ML VL) IV PRN (01:37)
[2023-07-28 07:01] LABS: African American GFR (CKD) 60 (>60 ml/min/1.73 sqM); Anion Gap 6 mmol/L; Blood Urea Nitrogen 53 mg/dL (9-20); Carbon Dioxide 23 mmol/L (22-30); Chloride 110 mmol/L (98-107); Glucose 166 mg/dL (74-99); Non-African American GFR(CKD) 52 (>60 ml/min/1.73 sqM); Potassium 3.5 mmol/L (3.5-5.1); Sodium 139 mmol/L (137-145)
[2023-07-28 09:19] LABS: HCT 24.5 % (39.6-50.0); HGB 7.6 g/dL (13.0-17.0); MCH 27.5 pg (27.0-32.0); MCV 88.8 FL (80.0-97.0); Mean Platelet Volume 10.3 FL (9.5-12.2); NRBC Per 100 WBC 0 X 10*3/uL (0.00-0.01); Platelet Count 265 X 10*3/uL (140-440); RBC 2.76 X 10*6/uL (4.40-5.60); RDW 17.6 % (11.5-14.5); WBC 6.81 X 10*3/uL (4.50-10.00)
[2023-07-28 09:20] LABS: Basophils # (A) 0 X 10*3/uL (0.00-0.10); Basophils % (A) 0 %; Eosinophils # (A) 0 X 10*3/uL (0.04-0.35); Eosinophils % (A) 0 %; Lymphocytes # (A) 0.31 X 10*3/uL (0.90-5.00); Lymphocytes % (A) 4.6 %; Monocytes % (A) 14.7 %; Neutrophils # (A) 5.33 X 10*3/uL (1.80-7.70); Neutrophils % (A) 78.2 %
[2023-07-28 12:27] LABS: INR 1.27 sec (0.93-1.11); Prothrombin Time 13.5 sec (9.9-11.9)
--- NOTE | 2023-07-28 15:00 | US ---
EXAMINATION TYPE: US venous doppler duplex UE RT DATE OF EXAM: 07/28/2023 COMPARISON: NONE CLINICAL INDICATION: Male, 88 years old with history of possible DVT; swelling in right arm since las t night, known dvt in leg, already on thinners SIDE PERFORMED: Right Right Arm: Negative for DVT internal echoes within cephalic vein that are not compressible, superfi cial thrombus Grayscale, color doppler, spectral doppler imaging performed of the deep veins of the upper extremiti es. There is normal flow, compressibility and vascular waveforms. IMPRESSION: 1. No evidence of deep venous thrombosis of the right upper extremity. 2. Suggestion of nonocclusive thrombus within the right cephalic vein.
--- NOTE | 2023-07-28 16:20 | P.PN ---
Subjective Progress Note Date: 07/28/23 Patient is an 88-year-old male with past medical history significant for hypertension, hyperlipidemia, paroxysmal atrial fibrillation previously anticoagulated on Eliquis, frequent falls. Patient recently fell from his wheelchair and had sustained a left hip fracture. He underwent a left hip cemented unipolar hemiarthroplasty on 07/05/2023. He was then discharged back to his extended care facility. Patient was sent back in from his ECF yesterday for evaluation of acute dyspnea. He was reportedly diagnosed with pneumonia earlier in the day, and started on doxycycline. When EMS arrived to the [facility], he was hypoxic with an SpO2 of less than 80%. He was also tachypneic and tachycardic and in respiratory distress. He was transferred to our facility on BiPAP. He is currently sitting up in bed, in some respiratory distress. On BiPAP with settings 12/6 and FiO2 of 100%. Respiratory rate is in the mid 30s and tidal volumes are greater than 800. He is unable to provide any information at this time. There is accessory muscle use. ABG done on above-mentioned settings showed a PaO2 of 183, pCO2 of 39, pH of 7.35. Chest x-ray shows a left lower lobe infiltrate and or atelectasis and small left-sided pleural effusion, possibly parapneumonic. CBC on arrival: WBC count of 30.7, hemoglobin 8.9, hematocrit 27.8, platelets 708. CMP on arrival: Sodium 130, potassium 4.9, chloride 97, serum bicarb 19, BUN 59, creatinine 2.09, glucose 106. Normal saline infusing at 130 MLS per hour. LFTs mildly elevated. Troponin 0.027. NT proBNP 5700. There is a component of acute on chronic kidney injury. Negative for influenza, RSV, COVID. Patient's D-dimer was elevated. For this reason a venous Doppler of the lower extremities was ordered, and the patient was found to have a left lower extremity DVT. Patient was previously anticoagulated on Eliquis, however, this has been stopped after his most recent fall and hip fracture. Left hip incision is approximated and clean and dry. No drainage. Hemoglobin is stable at 8.9 g/dL. Patient denies any bright red blood, melanotic stools, or hematemesis. Patient's respiratory status is currently labile, will continue to closely monitor. Patient may need transfer to the intensive care unit. In the emergency department and I had a lengthy discussion with the . The patient is currently on a BiPAP and is tolerating the BiPAP reasonably well with generation of adequate tidal volume above 500. No significant tachypnea. The patient is on a pressure setting of 12/6 and a meters of water and FiO2 has been weaned down.The white cell count from today is 29 with a hemoglobin of 7.6 and a platelet count of 527. Blood gases show a pH of 7.35 with a pCO2 of 39 and pO2 of 183 and this was on FiO2 of 100%. Viral screen has been negative and the procalcitonin level is at 4.2. BUN is at 69 with a creatinine of 2.09. Cultures were sent and the results are still pending for now. The chest x-ray showed a new area of consolidation of the left lower lobe in addition to a small left-sided pleural effusion. Ultrasound of the chest was also ordered and the results were consistent with a small left-sided pleural effusion with a 4.2 cm pocket. 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 Noted the patient was on anticoagulation with Eliquis in the past and this anticoagulation was discontinued because of his frequent falls. Noted the procalcitonin level is elevated at 4.2 On today's evaluation of 07/23/2023, seen the patient for a follow-up. The patient got moved out of the emergency department and the patient is currently on the medical floor. He was taken off the BiPAP this morning and the patient is currently on 2 L of O2 with a pulse ox of 98%. Alert awake and communicating. The white cell count is dropped down to 17.4 with a hemoglobin of 8.2 and a platelet count of 579. Hemodynamically stable. There is also interval improvement in the creatinine which is down to 1.43 with a BUN of 61. Sodium levels at 134. The patient remains on a combination of Zosyn and vancomycin. Remains on bronchodilators. Remains on IV Solu-Medrol 60 mg every 6 hours. The patient is also on IV heparin. PTT is therapeutic at this point in time. No evidence of any bleeding. Awake and alert and communicating. On today's evaluation of 07/24/2023, the patient is being seen for a follow-up. Clinically stable and the patient is currently on liters of oxygen by nasal cannula with a pulse ox of 94%. Repeat chest x-ray was done today and it shows some increase in the left lower lobe pleural effusion. There is also some infiltration/atelectasis. However clinically, the patient is stable. The patient is currently off the BiPAP. He has developed a small left-sided pleural effusion, likely parapneumonic in nature. Ultrasound of the chest was done yesterday showed a 4.2 cm pocket in the left lung. The WBC count is at 10.1 wh ich is improved with a hemoglobin of 7.7 slightly lower compared to yesterday with a platelet count of 537. Rest of the electrolytes are still pending. The patient remains on IV heparin. Remains on Zosyn and vancomycin coverage. No significant tachycardia. The patient is on DuoNeb updrafts. The patient on IV Solu-Medrol. The patient on Zosyn and vancomycin. The patient is on metoprolol 12.5 mg p.o. twice a day. On today's evaluation on 07/25/2023, the patient continues to improve. The white cell count is down to 7.8. The patient remains on 3 L of oxygen by nasal cannula. No significant respite distress. Repeat chest x-ray was done today and shows a stable left-sided pleural effusion that has not changed in size and the patient also has some stable infiltration of the left lung base consistent with pneumonia but small parapneumonic effusion. Hemoglobin is currently down to 6.6. The patient will be given a unit of packed RBC accordingly. Rest of the electrolytes show a creatinine of 1.33 with a BUN of 56 and a sodium levels at 138 with a potassium level of 4.1. The patient remains on IV heparin. He does have a DVT of the left lower extremity. No evidence of any GI bleeding at this point in time while being on IV heparin. On today's evaluation on 07/26/2023, the patient is being seen for a follow-up. The patient was given a unit of packed RBC yesterday and the hemoglobin is currently at 7.4. He is on oxygen 3 L with a pulse ox of 92%. He is lethargic and weak. Nevertheless denies having any significant shortness of breath. No chest pain. Remains on Zosyn and vancomycin. Nasal screen for MRSA was positive. Possibility of MRSA pneumonia cannot be completely excluded. The patient also developed a small parapneumonic effusion not amenable for thorace ntesis. He is a DNR/DNI CODE STATUS. Remains on bronchodilators. Remains on steroids. In addition, the patient is experiencing some hematuria at baseline and anticoagulation was stopped. Based on his high risk for anticoagulation and previous history of falls and concern for bleed, anticoagulation was placed on hold and vascular surgery was consulted for IVC filter placement. On today's evaluation, the patient is essentially unchanged remains on 3 L of oxygen by nasal cannula with a pulse ox of 97%. Chest x-ray was repeated this morning and the patient has an unchanged left-sided pleural effusion and left lower lobe consolidation. Remains on Zosyn and vancomycin. Labs from today ted ws a white cell count of 8 with a hemoglobin of 8 and a platelet count of 329. Electrolytes are within normal limits from yesterday. Creatinine is down to 1.2. No active hematuria and patient will be placed back on IV heparin pending vascular surgery consult 07/28/2023, patient is being seen for a follow-up. The patient is currently on oxygen at 4 L. Calm and comfortable. Noted frustrated. He is weak and quite debilitated at this point in time. He remains on Zosyn and vancomycin. He meme ins on IV heparin. No evidence of any hematuria. Howard catheter is in place. Hemoglobin is at 7.6. BUN is 53 with creatinine 1.24 levels at 139. Limited congested cough. No significant sputum production. He did encounter some swelling l upper extremity and a Doppler showed no evidence of any DVT in the right upper extremity. Nonocclusive thrombus was seen within the right cephalic vein. Objective - Vital Signs Vital signs: Vital Signs Temp 97.4 F L 07/28/23 12:35 Pulse 84 07/28/23 15:28 Resp 18 07/28/23 12:35 BP 111/69 07/28/23 12:35 Pulse Ox 93 L 07/28/23 12:35 FiO2 40 07/23/23 02:57 Intake & Output 07/27/23 07/28/23 07/28/23 18:59 06:59 18:59 Intake Total 77.492 172.508 Output Total 600 352 Balance -600 -274.508 172.508 Weight 105 kg Intake: Intake, IV Titration 77.492 172.508 Amount Heparin Sod,Pork in 0.45% 77.492 172.508 NaCl 25,000 unit In 0.45 % NaCl 1 250ml.bag @ 9.9 UNITS/KG/HR 9.999 mls/hr IV .Q24H MARIAN Rx#: [id number] Output: Urine 600 350 Stool 2 Other: Voiding Method Indwelling Catheter Indwelling Catheter Indwelling Catheter # Bowel Movements 2 7 1 - Exam GENERAL EXAM: Anxious, 88-year-old male, currently on 3 L of oxygen by nasal cannula HEAD: Normocephalic and atraumatic EYES: Normal reaction of pupils, equal size. NOSE: Clear with pink turbinates. THROAT: No erythema or exudates. NECK: No masses, no JVD. CHEST: No chest wall deformity. LUNGS: Equal air entry with left lower lobe inspiratory crackles and scattered rhonchi/wheezing. CVS: S1 and S2 normal with no audible murmur, regular rhythm. No extra heart sounds. Tachycardic. ABDOMEN: No hepatosplenomegaly, active bowel sounds, no guarding or rigidity. SPINE: No scoliosis or deformity SKIN: No rashes CENTRAL NERVOUS SYSTEM: No focal deficits, tone is normal in all 4 extremities. Alert and awake and communicating EXTREMITIES: There is no peripheral edema, clubbing, or cyanosis. Peripheral pulses are intact. Left hip incision is approximated, clean and dry, no drainage. - Labs CBC & Chem 7: 07/28/23 06:11 07/28/23 06:11 Labs: Abnormal Lab Results - Last 24 Hours (Table) 07/27/23 07/27/23 07/28/23 Range/Units 17:10 17:10 06:11 RBC 2.84 L (4.30-5.90) m/uL Hgb 8.1 L (13.0-17.5) gm/dL Hct 25.5 L (39.0-53.0) % MCHC (32.0-37.0) g/dL RDW 16.8 H (11.5-15.5) % Immature Gran # (0.00-0.04) X 10*3/uL Lymphocytes # 0.3 L (1.0-4.8) k/uL Eosinophils # (0.04-0.35) X 10*3/uL PT 13.3 H (10.0-12.5) sec INR 1.3 H (<1.2) APTT (22.0-30.0) sec Chloride 110 H (98-107) mmol/L BUN 53 H (9-20) mg/dL Glucose 166 H (74-99) mg/dL Calcium 8.0 L (8.4-10.2) mg/dL 07/28/23 07/28/23 07/28/23 Range/Units 06:11 06:11 10:18 RBC 2.76 L (4.30-5.90) m/uL Hgb 7.6 L (13.0-17.5) gm/dL Hct 24.5 L (39.0-53.0) % MCHC 31.0 L (32.0-37.0) g/dL RDW 17.6 H (11.5-15.5) % Immature Gran # 0.17 H (0.00-0.04) X 10*3/uL Lymphocytes # 0.31 L (1.0-4.8) k/uL Eosinophils # 0 L (0.04-0.35) X 10*3/uL PT 13.5 H (10.0-12.5) sec INR 1.27 H (<1.2) APTT 30.4 H (22.0-30.0) sec Chloride (98-107) mmol/L BUN (9-20) mg/dL Glucose (74-99) mg/dL Calcium (8.4-10.2) mg/dL Microbiology - Last 24 Hours (Table) 07/27/23 13:55 Gram Stain - Final Sputum Sputum Culture - Final 07/21/23 23:00 Blood Culture - Final Blood 07/21/23 22:45 Blood Culture - Final Blood Assessment and Plan Plan: Acute hypoxemic respiratory failure, possibly multifactorial, secondary to acute COPD exacerbation and possible left-sided community-acquired pneumonia and left- sided pleural effusion, possibly parapneumonic. Possibility of a hospital- acquired pathogen cannot be completely ruled out. Patient is currently on 4 L of oxygen nasal cannula and his repeat chest x-ray shows a stable left lung infiltrate and stable left-sided pleural effusion which is essentially small and ultrasound pocket was approximately 4.2 cm in size. Acute left lower lobe pneumonia, most likely bacterial infection and the patient procalcitonin level is also elevated. Patient has leukocytosis. Consider bacterial infection the patient will be covered with broad-spectrum antibiotics for now. 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 Note that the patient was off his an ticoagulants due to his frequent falls., Frequent falls, with recent left hip femoral neck fracture, status/post left hip cemented unipolar hemiarthroplasty on 07/05/2023 History of fall with multiple left-sided rib fractures and pulmonary contusion History of paroxysmal atrial fibrillation, Eliquis has been stopped Normocytic normochromic anemia, hemoglobin stable from recent hospital admissi on. Acute on chronic kidney disease, creatinine is improved compared to yesterday the patient is recovering from his acute kidney injury Acute on top of chronic anemia with a drop in hemoglobin of 6.6 ,Without evidence of any bleeding History of thoracic level wound/cellulitis, isolated organism at that time was MRSA History of hyperlipidemia History of hypertension History of former tobacco dependence Chronic obstructive pulmonary disease History of alcoholism Hematuria Plan: Chest x-ray findings are stable with stable left lower lobe consolidation with left-sided pleural effusion Oxygenation is stable Hemoglobin has responded to a unit of packed RBC. Nevertheless, due to concerns of fall and ongoing hematuria, anticoagulation has been placed on hold and vascular surgery has been consulted for a possibility of an IVC filter placement. No active hematuria for now. Will restart IV heparin low intensity pending vascular surgery consultation. Watch for any bleeding complications No evidence of any GI bleed Oxygenation is improved currently on 3 L Continue combination of Zosyn and vancomycin White cell count is improved Reviewed the results of the chest ultrasound and the repeat chest x-ray that showed a stable left-sided pleural effusion Repeat chest x-ray in the morning Continue combination of DuoNebs [id number], formoterol inhalation, budesonide inhalation, and IV Solu-Medrol DNR/DNI CODE STATUS
--- NOTE | 2023-07-29 01:39 | P.PN ---
Subjective Progress Note Date: 07/27/23 Patient is a 88-year-old male with a past medical history of hypertension, hyperlipidemia, paroxysmal atrial fibrillation coronary artery disease nonobstructive, mild cardiomyopathy ejection fraction 45-50 %, history of right tobacco smoker and left hip hemiarthroplasty on 07/05/2023 due to mechanical fall . Patient presented from nursing facility due to worsening shortness of breath/dyspnea. Patient was diagnosed with pneumonia and was started on doxycycline. He was placed on oxygen at 4 L via nasal cannula and EMS was called due to hypoxia with pulse ox down to 80% and patient was tachycardic and tachypneic. Patient was placed on BiPAP by EMS and was transferred to ER. Otherwise patient denies any complaints of chest pain. Cough with occasional sputum production. Tmax 101.0 on admission. Patient was recently admitted to due to acute blood loss anemia from 07/11/2023 to 07/12/2023. requiring 1 unit PRBC transfusion. Eliquis was held and [facility]. Chest x-ray showed chronic parenchymal changes with new small left pleural effusion and left lower lobe acute infiltrates/atelectasis. EKG showed sinus tachycardia with possible left atrial enlargement. Lower extremity venous duplex showed suboptimal study. Long segment left lower extremity DVT is present. Findings reflect chronic clot or partially occlusive thrombus. Correlate clinically. Mild to moderate diffuse subcutaneous edema is seen on images obtained. Laboratory data showed WBC 13.7 hemoglobin 8.9 and platelets 708, D-dimer 4.11 ABG showed pH 7.35 pCO2 39, pO2 183 Sodium 130 potassium 4.9 chloride 97 bicarb is 19 BUN 59 and creatinine 2.09 and blood sugar 106 and lactic acid 3.1 total bilirubin 3.5 and alk phos 268, proBNP 5700, troponin 0.027 and albumin 2.8 Influenza A, B, RSV and COVID-19 PCR not detected. 07/23/2023 Patient is seen and evaluated in follow-up. Patient was continued on BiPAP and is currently maintaining oxygen saturations above 90% on 3 L. Patient continues on IV heparin drip with left lower extremity DVT. VQ scan was ordered as patient was unable to have CT of the chest for PE evaluation as kidney functions are elevated. Will hold on VQ scan for now as patient unable to tolerate lying flat. Continue IV heparin and will likely need to transition back to Eliquis. 07/24/2023 Patient is seen and evaluated in follow-up today with pulmonary following. Patient continues on 3 L via nasal cannula and has been off of the BiPAP. Follo w-up chest x-ray today shows increasing left lower lobe pleural effusion with associated atelectasis and/or infiltrate. Strongly encourage incentive spirometer although patient needs much encouragement as he is extremely weak and confused at times. Patient continues on IV heparin and will for now as there will be a follow-up chest x-ray in the a.m. and may require a thoracentesis with pulmonary following closely. Will discuss with pulmonary in regards to transitioning to Eliquis or if patient is appropriate for any further anticoagulation. Patient is afebrile with no reported chest pain or worsening shortness of breath. Patient is continued on IV steroids along with antibiotics and DuoNeb breathing treatments. Encouraged oral intake and recommend aspiration precautions with head of the bed elevated 45 degrees at all times. 07/25/2023 Patient is seen this morning currently asleep although arousable. Patient maintained on 3 L via nasal cannula with pulmonary following. Follow-up chest x-ray shows stable effusion and pulmonary reporting no plans for thoracentesis at this time. Patient was continued on IV heparin although will transition to oral Eliquis and monitor for any bleeding. There are no active signs of bleeding at this time although hemoglobin was noted to be 6.6 today. Will transfuse 1 unit of PRBC follow-up on repeat labs. Patient continues on antibiotics sided pneumonia. Patient is afebrile and denies any chest pain or palpitations. Patient has a congested cough and difficulty expectorating. Encouraged incentive spirometer use and sitting up more often. Continue with DuoNeb treatments at this time. 07/26/2023 Patient is seen and evaluated in follow-up status post 1 unit of PRBC. Hemoglobin is 7.4 today with no active bleeding noted. Patient continues on DuoNeb treatments and will continue on antibiotics with pulmonary following closely. So provide I 07/27/2023 Patient is currently lying in the bed. Awake alert. Still having shortness of breath and oxygen requirement at 3 L via nasal cannula. Patient is on antibiotics in the form of vancomycin and Zosyn. Nasal swab cultures positive for MRSA. Patient is also on IV Solu-Medrol 60 mg every 6 hourly and DuoNebs. Patient was started back on anticoagulation with heparin drip. Vascular surgery was consulted. DVT. Chest x-ray showed unchanged left pleural effusion with associated atelectasis or infiltrate. Laboratory data showed WBC 8.0 hemoglobin 8.1 and platelets 288 INR 1.3. FOBT negative. Current medications reviewed. Review of systems: Constitutional: No reports of fatigue, fever, or chills Cardiovascular: No reports of chest pain or palpitations Respiratory: No reports of worsening shortness of breath, reports weak cough GI: No reports of nausea, vomiting, or diarrhea : No reports of dysuria or retention Neurovascular: reports of extreme generalized weakness and lower extremity pain with swelling especially the left leg when being moved All medications have been reviewed PHYSICAL EXAMINATION: Patient is lying in the bed. No acute distress, awake alert and oriented x 2, confused at times. Baseline. Has been weaned off BiPAP currently on 3 L via nasal cannula, well-developed, thin built, elderly appearing, ill-appearing HEENT: Normocephalic. Neck is supple. Pupils reactive. Nostrils clear. Oral cavity is moist. Neck reveals no JVD, carotid bruits, or thyromegaly. CHEST EXAMINATION: Trachea is central. Symmetrical expansion. Left basilar coarse sounds. Mild expiratory wheeze.. Crackles noted at the bases CARDIAC: Normal S1, S2 with no gallops. No murmurs ABDOMEN: Soft. Thin. Bowel sounds normal. No organomegaly. No abdominal bruits. Extremities: reveal no edema. No clubbing or cyanosis, bilateral lower extremity swelling worse on the left, foot drop noted on the left as well. Left hip surgical site has scabbing noted with no redness or drainage noted, healing well and approximated Neurologically awake, alert, oriented x 2-3. Diffusely weak Skin: No rash or skin lesions. Psychiatric: Cooperative. Could not be assessed completely Musculoskeletal: No joint swelling or deformity. Assessment: Acute hypoxemic respiratory failure due to left lower lobe pneumonia and left sided small pleural effusion and COPD. Patient was requiring BiPAP on admission. Transitioned to nasal cannula Acute on chronic anemia, acute blood loss secondary to anticoagulation and hematuria, no GI bleed noted Hematuria, possibly secondary to resumption of anticoagulation versus possible as patient does occasionally pull at IVs and tubules. Sepsis secondary to pneumonia, bacterial Acute left lower extremity DVT. Elevated D-dimer level. CT PE could not be done due to elevated creatinine level. Acute kidney injury likely prerenal with possible ATN. CKD stage III. Hypovolemic hyponatremia, secondary to poor oral intake Lactic acidosis 3.1 on admission, secondary to left lower lobe pneumonia, improved History of mechanical fall status post left hip cemented unipolar hemiarthroplasty on 07/05/2023 Recent admission with anemia requiring blood transfusion 1 unit PRBC. Hemoglobin is 6.6 today and will receive 1 unit of PRBC Paroxysmal atrial fibrillation, currently rate controlled currently Eliquis being resumed heparin being discontinued Mild cardiomyopathy with ejection fraction 45 to 50%. EF improved to 55 to 60% as per recent echocardiogram on 07/05/2023 Coronary artery disease nonobstructive Hypertension Hyperlipidemia History of tobacco use History of EtOH abuse GI prophylaxis with PPI DVT prophylaxis, Eliquis No code Plan: Patient was maintained on BiPAP on admission and has transition to 3 L via nasal cannula. Pulmonary following. Continue with DuoNebs, IV Solu-Medrol 60 mg every 6 hourly. Patient was given azithromycin and ceftriaxone in the ER. Antibiotics in the form of Zosyn and vancomycin. Procalcitonin level is elevated. Patient was started on heparin drip due to left lower extremity acute DVT. VQ s can was ordered due to elevated creatinine level to rule out PE. Per pulmonary no need for V/Q at this time. Follow-up chest x-ray shows stable left pleural effusion with no plans of thoracentesis at this time. There is noted hematuria noted in the [place]. Eliquis is on hold and patient was started on heparin drip. Consulted vascular surgery for possible IVC filter placement as patient appears to not be a good candidate for anticoagulation given continued significant anemia with bleeding, frequent falls. Follow-up H&H. Transfuse if 7 or less. Recommend PT/OT therapy evaluation Continue with wound prison medications reviewed and resumed as appropriate Patient having occasional periods of confusion and will continue Seroquel as needed at night low-dose in the event patient becomes agitated. Encouraged opening the shades and blinds to the windows and possibly sitting up out of the bed more often and frequent reorientation. Patient is no code. Will discuss with case management/social work as plan is to return to [facility] once cleared by consultations. Patient will require insurance authorization. Objective - Vital Signs Vital signs: Vital Signs Temp 98.4 F 07/27/23 12:25 Pulse 98 07/27/23 12:25 Resp 19 07/27/23 12:55 BP 137/69 07/27/23 12:25 Pulse Ox 97 07/27/23 12:55 FiO2 40 07/23/23 02:57 Intake & Output 07/26/23 07/27/23 07/27/23 18:59 06:59 18:59 Intake Total 480 Output Total 600 602 Balance -120 -602 Weight 101 kg Intake: Oral 480 Output: Urine 600 600 Stool 2 Other: Voiding Method Indwelling Catheter Indwelling Catheter Indwelling Catheter # Voids 0 # Bowel Movements 1 1 - Labs CBC & Chem 7: 07/28/23 06:11 07/28/23 06:11 Labs: Abnormal Lab Results - Last 24 Hours (Table) 07/27/23 07/27/23 Range/Units 07:27 07:32 RBC 2.93 L (4.30-5.90) m/uL Hgb 8.0 L (13.0-17.5) gm/dL Hct 26.3 L (39.0-53.0) % MCHC 30.4 L (31.0-37.0) g/dL RDW 16.6 H (11.5-15.5) % Lymphocytes # (Manual) 0.33 L (1.0-4.8) k/uL Metamyelocytes # (Man) 0.08 H (0) k/uL Myelocytes # (Manual) 0.08 H (0) k/uL Chloride 110 H (98-107) mmol/L BUN 54 H (9-20) mg/dL Glucose 183 H (74-99) mg/dL Calcium 8.3 L (8.4-10.2) mg/dL Microbiology - Last 24 Hours (Table) 07/21/23 23:00 Blood Culture - Final Blood 07/21/23 22:45 Blood Culture - Final Blood
--- NOTE | 2023-07-29 01:47 | P.PN ---
Subjective Progress Note Date: 07/28/23 Patient is a 88-year-old male with a past medical history of hypertension, hyperlipidemia, paroxysmal atrial fibrillation coronary artery disease nonobstructive, mild cardiomyopathy ejection fraction 45-50 %, history of right tobacco smoker and left hip hemiarthroplasty on 07/05/2023 due to mechanical fall . Patient presented from nursing facility due to worsening shortness of breath/dyspnea. Patient was diagnosed with pneumonia and was started on doxycycline. He was placed on oxygen at 4 L via nasal cannula and EMS was called due to hypoxia with pulse ox down to 80% and patient was tachycardic and tachypneic. Patient was placed on BiPAP by EMS and was transferred to ER. Otherwise patient denies any complaints of chest pain. Cough with occasional sputum production. Tmax 101.0 on admission. Patient was recently admitted to due to acute blood loss anemia from 07/11/2023 to 07/12/2023. requiring 1 unit PRBC transfusion. Eliquis was held and was discharged back [facility] for re[facility]. Chest x-ray showed chronic parenchymal changes with new small left pleural effusion and left lower lobe acute infiltrates/atelectasis. EKG showed sinus tachycardia with possible left atrial enlargement. Lower extremity venous duplex showed suboptimal study. Long segment left lower extremity DVT is present. Findings reflect chronic clot or partially occlusive thrombus. Correlate clinically. Mild to moderate diffuse subcutaneous edema is seen on images obtained. Laboratory data showed WBC 13.7 hemoglobin 8.9 and platelets 708, D-dimer 4.11 ABG showed pH 7.35 pCO2 39, pO2 183 Sodium 130 potassium 4.9 chloride 97 bicarb is 19 BUN 59 and creatinine 2.09 and blood sugar 106 and lactic acid 3.1 total bilirubin 3.5 and alk phos 268, proBNP 5700, troponin 0.027 and albumin 2.8 Influenza A, B, RSV and COVID-19 PCR not detected. 07/23/2023 Patient is seen and evaluated in follow-up. Patient was continued on BiPAP and is currently maintaining oxygen saturations above 90% on 3 L. Patient continues on IV heparin drip with left lower extremity DVT. VQ scan was ordered as patient was unable to have CT of the chest for PE evaluation as kidney functions are elevated. Will hold on VQ scan for now as patient unable to tolerate lying flat. Continue IV heparin and will likely need to transition back to Eliquis. 07/24/2023 Patient is seen and evaluated in follow-up today with pulmonary following. Patient continues on 3 L via nasal cannula and has been off of the BiPAP. Follo w-up chest x-ray today shows increasing left lower lobe pleural effusion with associated atelectasis and/or infiltrate. Strongly encourage incentive spirometer although patient needs much encouragement as he is extremely weak and confused at times. Patient continues on IV heparin and will for now as there will be a follow-up chest x-ray in the a.m. and may require a thoracentesis with pulmonary following closely. Will discuss with pulmonary in regards to transitioning to Eliquis or if patient is appropriate for any further anticoagulation. Patient is afebrile with no reported chest pain or worsening shortness of breath. Patient is continued on IV steroids along with antibiotics and DuoNeb breathing treatments. Encouraged oral intake and recommend aspiration precautions with head of the bed elevated 45 degrees at all times. 07/25/2023 Patient is seen this morning currently asleep although arousable. Patient maintained on 3 L via nasal cannula with pulmonary following. Follow-up chest x-ray shows stable effusion and pulmonary reporting no plans for thoracentesis at this time. Patient was continued on IV heparin although will transition to oral Eliquis and monitor for any bleeding. There are no active signs of bleeding at this time although hemoglobin was noted to be 6.6 today. Will transfuse 1 unit of PRBC follow-up on repeat labs. Patient continues on antibiotics sided pneumonia. Patient is afebrile and denies any chest pain or palpitations. Patient has a congested cough and difficulty expectorating. Encouraged incentive spirometer use and sitting up more often. Continue with DuoNeb treatments at this time. 07/26/2023 Patient is seen and evaluated in follow-up status post 1 unit of PRBC. Hemoglobin is 7.4 today with no active bleeding noted. Patient continues on DuoNeb treatments and will continue on antibiotics with pulmonary following closely. So provide I 07/27/2023 Patient is currently lying in the bed. Awake alert. Still having shortness of breath and oxygen requirement at 3 L via nasal cannula. Patient is on antibiotics in the form of vancomycin and Zosyn. Nasal swab cultures positive for MRSA. Patient is also on IV Solu-Medrol 60 mg every 6 hourly and DuoNebs. Patient was started back on anticoagulation with heparin drip. Vascular surgery was consulted. DVT. Chest x-ray showed unchanged left pleural effusion with associated atelectasis or infiltrate. Laboratory data showed WBC 8.0 hemoglobin 8.1 and platelets 288 INR 1.3. FOBT negative. 07/28/2023 Patient is lying in the bed. Awake alert but lethargic and weak. And currently requiring 4 L oxygen via nasal cannula. Currently on heparin drip due to lower extremity DVT and also on IV antibiotics. Hemoglobin is fairly stable at 7.6. No hematuria noted. Patient is also being continued on IV Solu-Medrol and DuoNebs. Pulmonary is on board. Vascular surgery was consulted. Patient does have significant right upper extremity swelling with possible extravasation of the IV line. Duplex scan was ordered to rule DVT. Laboratory showed WBC 6.8 hemoglobin 7.6 and platelets 265 Sodium 139 potassium 3.5 chloride 110 bicarb is 23 BUN 53 and creatinine 1.24 and blood sugar 166. Calcium 8.0. Current medications reviewed. Review of systems: Constitutional: No reports of fatigue, fever, or chills Cardiovascular: No reports of chest pain or palpitations Respiratory: No reports of worsening shortness of breath, reports weak cough GI: No reports of nausea, vomiting, or diarrhea : No reports of dysuria or retention Neurovascular: reports of extreme generalized weakness and lower extremity pain with swelling especially the left leg when being moved All medications have been reviewed PHYSICAL EXAMINATION: Patient is lying in the bed. No acute distress, awake alert and oriented x 2, confused at times. Baseline. Has been weaned off BiPAP currently on 3 L via nasal cannula, well-developed, thin built, elderly appearing, ill-appearing HEENT: Normocephalic. Neck is supple. Pupils reactive. Nostrils clear. Oral cavity is moist. Neck reveals no JVD, carotid bruits, or thyromegaly. CHEST EXAMINATION: Trachea is central. Symmetrical expansion. Left basilar coarse sounds. Mild expiratory wheeze.. Crackles noted at the bases CARDIAC: Normal S1, S2 with no gallops. No murmurs ABDOMEN: Soft. Thin. Bowel sounds normal. No organomegaly. No abdominal bru its. Extremities: reveal no edema. No clubbing or cyanosis, bilateral lower extremity swelling worse on the left, foot drop noted on the left as well. Left hip surgical site has scabbing noted with no redness or drainage noted, healing well and approximated Neurologically awake, alert, oriented x 2-3. Diffusely weak Skin: No rash or skin lesions. Psychiatric: Cooperative. Could not be assessed completely Musculoskeletal: No joint swelling or deformity. Assessment: Acute hypoxemic respiratory failure due to left lower lobe pneumonia and left sided small pleural effusion and COPD. Patient was requiring BiPAP on admission. on 4L nasal cannula today Acute on chronic anemia, acute blood loss secondary to anticoagulation and hematuria, no GI bleed noted Hematuria, possibly secondary to resumption of anticoagulation versus possible as patient does occasionally pull at IVs and tubules. Sepsis secondary to pneumonia, bacterial Acute left lower extremity DVT. Elevated D-dimer level. CT PE could not be done due to elevated creatinine level. Acute kidney injury likely prerenal with possible ATN. CKD stage III. Hypovolemic hyponatremia, secondary to poor oral intake Lactic acidosis 3.1 on admission, secondary to left lower lobe pneumonia, improved History of mechanical fall status post left hip cemented unipolar hemiarthroplasty on 07/05/2023 Recent admission with anemia requiring blood transfusion 1 unit PRBC. Hemoglobin is 6.6 today and will receive 1 unit of PRBC Paroxysmal atrial fibrillation, currently rate controlled currently Eliquis being resumed heparin being discontinued Mild cardiomyopathy with ejection fraction 45 to 50%. EF improved to 55 to 60% as per recent echocardiogram on 07/05/2023 Coronary artery disease nonobstructive Hypertension Hyperlipidemia History of tobacco use History of EtOH abuse GI prophylaxis with PPI DVT prophylaxis, Eliquis No code Plan: Patient was maintained on BiPAP on admission and has transition to 4L via nasal cannula. Pulmonary following. Continue with DuoNebs, IV Solu-Medrol 60 mg every 6 hourly. Patient was given azithromycin and ceftriaxone in the ER. Antibiotics in the form of Zosyn and vancomycin. Procalcitonin level is elevated. Patient was started on heparin drip due to left lower extremity acute DVT. VQ scan was ordered due to elevated creatinine level to rule out PE. Per pulmonary no need for V/Q at this time. Follow-up chest x-ray shows stable left pleural effusion with no plans of thoracentesis at this time. There is noted hematuria noted in the [place]. Eliquis is on hold and patient was started on heparin drip. Consulted vascular surgery for possible IVC filter placement as patient appears to not be a good candidate for anticoagulation given continued significant anemia with bleeding, frequent falls. Follow-up H&H. Transfuse if 7 or less. Recommend PT/OT therapy evaluation Continue with wound longterm medications reviewed and resumed as appropriate Patient having occasional periods of confusion and will continue Seroquel as needed at night low-dose in the event patient becomes agitated. Encouraged opening the shades and blinds to the windows and possibly sitting up out of the bed more often and frequent reorientation. Patient is no code. Will discuss with case management/social work as plan is to return to [facility] once cleared by consultations. Patient will require insurance authorization. Objective - Vital Signs Vital signs: Vital Signs Temp 97.6 F 07/28/23 19:04 Pulse 88 07/28/23 20:49 Resp 18 07/28/23 19:04 BP 152/83 07/28/23 19:04 Pulse Ox 95 07/28/23 20:27 FiO2 40 07/23/23 02:57 Intake & Output 07/28/23 07/28/23 07/29/23 06:59 18:59 06:59 Intake Total 77.492 235.941 Output Total 352 425 Balance -274.508 -189.059 Weight 105 kg Intake: Intake, IV Titration 77.492 235.941 Amount Heparin Sod,Pork in 0.45% 77.492 235.941 NaCl 25,000 unit In 0.45 % NaCl 1 250ml.bag @ 9.9 UNITS/KG/HR 9.999 mls/hr IV .Q24H [facility] Rx#: [id number] Output: Urine 350 425 Stool 2 Other: Voiding Method Indwelling Catheter Indwelling Catheter Indwelling Catheter # Bowel Movements 7 1 - Labs CBC & Chem 7: 07/28/23 06:11 07/28/23 06:11 Labs: Abnormal Lab Results - Last 24 Hours (Table) 07/28/23 07/28/23 07/28/23 Range/Units 06:11 06:11 06:11 RBC 2.76 L (4.40-5.60) X 10*6/uL Hgb 7.6 L (13.0-17.0) g/dL Hct 24.5 L (39.6-50.0) % MCHC 31.0 L (32.0-37.0) g/dL RDW 17.6 H (11.5-14.5) % Immature Gran # 0.17 H (0.00-0.04) X 10*3/uL Lymphocytes # 0.31 L (0.90-5.00) X 10*3/uL Eosinophils # 0 L (0.04-0.35) X 10*3/uL PT 13.5 H (9.9-11.9) sec INR 1.27 H (0.93-1.11) sec APTT (22.0-30.0) sec Chloride 110 H (98-107) mmol/L BUN 53 H (9-20) mg/dL Glucose 166 H (74-99) mg/dL Calcium 8.0 L (8.4-10.2) mg/dL 07/28/23 07/28/23 Range/Units 10:18 17:37 RBC (4.40-5.60) X 10*6/uL Hgb (13.0-17.0) g/dL Hct (39.6-50.0) % MCHC (32.0-37.0) g/dL RDW (11.5-14.5) % Immature Gran # (0.00-0.04) X 10*3/uL Lymphocytes # (0.90-5.00) X 10*3/uL Eosinophils # (0.04-0.35) X 10*3/uL PT (9.9-11.9) sec INR (0.93-1.11) sec APTT 30.4 H 34.9 H (22.0-30.0) sec Chloride (98-107) mmol/L BUN (9-20) mg/dL Glucose (74-99) mg/dL Calcium (8.4-10.2) mg/dL Microbiology - Last 24 Hours (Table) 07/27/23 13:55 Gram Stain - Final Sputum Sputum Culture - Final
[2023-07-29] MEDS: ALBUTEROL HFA INHALER INHALATION SCH (08:26)
[2023-07-29] MEDS: TIOTROPIUM 2.5 MCG INHALER INHALATION SCH (08:27)
[2023-07-29] MEDS: Salmeterol 50 mcg INHALER INHALATION SCH (08:27)
[2023-07-29] MEDS: FLUTICASONE 220 MCG INHALER INHALATION SCH (08:27)
--- NOTE | 2023-07-29 11:50 | P.PN ---
Subjective Progress Note Date: 07/29/23 Patient is an 88-year-old male with past medical history significant for hypertension, hyperlipidemia, paroxysmal atrial fibrillation previously anticoagulated on Eliquis, frequent falls. Patient recently fell from his wheelchair and had sustained a left hip fracture. He underwent a left hip cemented unipolar hemiarthroplasty on 07/05/2023. He was then discharged back to his extended care facility. Patient was sent back in from his ECF yesterday for evaluation of acute dyspnea. He was reportedly diagnosed with pneumonia earlier in the day, and started on doxycycline. When EMS arrived to the [facility], he was hypoxic with an SpO2 of less than 80%. He was also tachypneic and tachycardic and in respiratory distress. He was transferred to our facility on BiPAP. He is currently sitting up in bed, in some respiratory distress. On BiPAP with settings 12/6 and FiO2 of 100%. Respiratory rate is in the mid 30s and tidal volumes are greater than 800. He is unable to provide any information at this time. There is accessory muscle use. ABG done on above-mentioned settings showed a PaO2 of 183, pCO2 of 39, pH of 7.35. Chest x-ray shows a left lower lobe infiltrate and or atelectasis and small left-sided pleural effusion, possibly parapneumonic. CBC on arrival: WBC count of 30.7, hemoglobin 8.9, hematocrit 27.8, platelets 708. CMP on arrival: Sodium 130, potassium 4.9, chloride 97, serum bicarb 19, BUN 59, creatinine 2.09, glucose 106. Normal saline infusing at 130 MLS per hour. LFTs mildly elevated. Troponin 0.027. NT proBNP 5700. There is a component of acute on chronic kidney injury. Negative for influenza, RSV, COVID. Patient's D-dimer was elevated. For this reason a venous Doppler of the lower extremities was ordered, and the patient was found to have a left lower extremity DVT. Patient was previously anticoagulated on Eliquis, however, this has been stopped after his most recent fall and hip fracture. Left hip incision is approximated and clean and dry. No drainage. Hemoglobin is stable at 8.9 g/dL. Patient denies any bright red blood, melanotic stools, or hematemesis. Patient's respiratory status is currently labile, will continue to closely monitor. Patient may need transfer to the intensive care unit. In the emergency department and I had a lengthy discussion with the . The patient is currently on a BiPAP and is tolerating the BiPAP reasonably well with generation of adequate tidal volume above 500. No significant tachypnea. The patient is on a pressure setting of 12/6 and a meters of water and FiO2 has been weaned down.The white cell count from today is 29 with a hemoglobin of 7.6 and a platelet count of 527. Blood gases show a pH of 7.35 with a pCO2 of 39 and pO2 of 183 and this was on FiO2 of 100%. Viral screen has been negative and the procalcitonin level is at 4.2. BUN is at 69 with a creatinine of 2.09. Cultures were sent and the results are still pending for now. The chest x-ray showed a new area of consolidation of the left lower lobe in addition to a small left-sided pleural effusion. Ultrasound of the chest was also ordered and the results were consistent with a small left-sided pleural effusion with a 4.2 cm pocket. 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 Noted the patient was on anticoagulation with Eliquis in the past and this anticoagulation was discontinued because of his frequent falls. Noted the procalcitonin level is elevated at 4.2 On today's evaluation of 07/23/2023, seen the patient for a follow-up. The patient got moved out of the emergency department and the patient is currently on the medical floor. He was taken off the BiPAP this morning and the patient is currently on 2 L of O2 with a pulse ox of 98%. Alert awake and communicating. The white cell count is dropped down to 17.4 with a hemoglobin of 8.2 and a platelet count of 579. Hemodynamically stable. There is also interval improvement in the creatinine which is down to 1.43 with a BUN of 61. Sodium levels at 134. The patient remains on a combination of Zosyn and vancomycin. Remains on bronchodilators. Remains on IV Solu-Medrol 60 mg every 6 hours. The patient is also on IV heparin. PTT is therapeutic at this point in time. No evidence of any bleeding. Awake and alert and communicating. On today's evaluation of 07/24/2023, the patient is being seen for a follow-up. Clinically stable and the patient is currently on liters of oxygen by nasal cannula with a pulse ox of 94%. Repeat chest x-ray was done today and it shows some increase in the left lower lobe pleural effusion. There is also some infiltration/atelectasis. However clinically, the patient is stable. The patient is currently off the BiPAP. He has developed a small left-sided pleural effusion, likely parapneumonic in nature. Ultrasound of the chest was done yesterday showed a 4.2 cm pocket in the left lung. The WBC count is at 10.1 whi ch is improved with a hemoglobin of 7.7 slightly lower compared to yesterday with a platelet count of 537. Rest of the electrolytes are still pending. The patient remains on IV heparin. Remains on Zosyn and vancomycin coverage. No significant tachycardia. The patient is on DuoNeb updrafts. The patient on IV Solu-Medrol. The patient on Zosyn and vancomycin. The patient is on metoprolol 12.5 mg p.o. twice a day. On today's evaluation on 07/25/2023, the patient continues to improve. The white cell count is down to 7.8. The patient remains on 3 L of oxygen by nasal cannula. No significant respite distress. Repeat chest x-ray was done today and shows a stable left-sided pleural effusion that has not changed in size and the patient also has some stable infiltration of the left lung base consistent with pneumonia but small parapneumonic effusion. Hemoglobin is currently down to 6.6. The patient will be given a unit of packed RBC accordingly. Rest of the electrolytes show a creatinine of 1.33 with a BUN of 56 and a sodium levels at 138 with a potassium level of 4.1. The patient remains on IV heparin. He does have a DVT of the left lower extremity. No evidence of any GI bleeding at this point in time while being on IV heparin. On today's evaluation on 07/26/2023, the patient is being seen for a follow-up. The patient was given a unit of packed RBC yesterday and the hemoglobin is currently at 7.4. He is on oxygen 3 L with a pulse ox of 92%. He is lethargic and weak. Nevertheless denies having any significant shortness of breath. No chest pain. Remains on Zosyn and vancomycin. Nasal screen for MRSA was positive. Possibility of MRSA pneumonia cannot be completely excluded. The patient also developed a small parapneumonic effusion not amenable for thoracen tesis. He is a DNR/DNI CODE STATUS. Remains on bronchodilators. Remains on steroids. In addition, the patient is experiencing some hematuria at baseline and anticoagulation was stopped. Based on his high risk for anticoagulation and previous history of falls and concern for bleed, anticoagulation was placed on hold and vascular surgery was consulted for IVC filter placement. On today's evaluation, the patient is essentially unchanged remains on 3 L of oxygen by nasal cannula with a pulse ox of 97%. Chest x-ray was repeated this morning and the patient has an unchanged left-sided pleural effusion and left lower lobe consolidation. Remains on Zosyn and vancomycin. Labs from today shows a white cell count of 8 with a hemoglobin of 8 and a platelet count of 329. Electrolytes are within normal limits from yesterday. Creatinine is down to 1.2. No active hematuria and patient will be placed back on IV heparin pending vascular surgery consult 07/28/2023, patient is being seen for a follow-up. The patient is currently on oxygen at 4 L. Calm and comfortable. Noted frustrated. He is weak and quite debilitated at this point in time. He remains on Zosyn and vancomycin. He remains on IV heparin. No evidence of any hematuria. Howard catheter is in place. Hemoglobin is at 7.6. BUN is 53 with creatinine 1.24 levels at 139. Limited congested cough. No significant sputum production. He did encounter some swelling l upper extremity and a Doppler showed no evidence of any DVT in the right upper extremity. Nonocclusive thrombus was seen within the right cephalic vein. The patient is seen today July 29, 2023 in follow-up on the regular medical floor. He is currently sitting up in bed. Awake and alert in no acute distress. He is maintaining good O2 saturations in the upper 90s on 5 L/min per nasal cannula. He is afebrile. Hemodynamically stable. He remains on a heparin drip. Continued on bronchodilators and steroids. Antibiotics in the form of vancomycin and Zosyn. Objective - Vital Signs Vital signs: Vital Signs Temp 97.5 F L 07/29/23 07:02 Pulse 96 07/29/23 07:02 Resp 18 07/29/23 07:02 BP 86/55 07/29/23 07:02 Pulse Ox 97 07/29/23 07:02 FiO2 40 07/23/23 02:57 Intake & Output 07/28/23 07/29/23 07/29/23 18:59 06:59 18:59 Intake Total 235.941 127.26 59.307 Output Total 425 450 Balance -189.059 -322.74 59.307 Weight 103.5 kg Intake: Intake, IV Titration 235.941 127.26 59.307 Amount Heparin Sod,Pork in 0.45% 235.941 127.26 59.307 NaCl 25,000 unit In 0.45 % NaCl 1 250ml.bag @ 9.9 UNITS/KG/HR 9.999 mls/hr IV .Q24H MARIAN Rx#: [id number] Output: Urine 425 450 Other: Voiding Method Indwelling Catheter Indwelling Catheter # Bowel Movements 1 1 - Exam GENERAL EXAM: Alert, frail 88-year-old male patient, on 5 L nasal cannula, comfortable in no apparent distress. HEAD: Normocephalic. EYES: Normal reaction of pupils, equal size. NOSE: Clear with pink turbinates. THROAT: No erythema or exudates. NECK: No masses, no JVD. CHEST: No chest wall deformity. LUNGS: Equal air entry with crackles in the left lung base. CVS: S1 and S2 normal with no audible murmur, regular rhythm. ABDOMEN: No hepatosplenomegaly, normal bowel sounds, no guarding or rigidity. SPINE: No scoliosis or deformity SKIN: No rashes CENTRAL NERVOUS SYSTEM: No focal deficits, tone is normal in all 4 extremities. EXTREMITIES: Multiple areas of ecchymosis. Left hip incision clean dry well- approximated there is no peripheral edema. No clubbing, no cyanosis. Peripheral pulses are intact. - Labs CBC & Chem 7: 07/28/23 06:11 07/28/23 06:11 Labs: Abnormal Lab Results - Last 24 Hours (Table) 07/28/23 07/28/23 07/28/23 Range/Units 06:11 17:37 23:14 PT 13.5 H (9.9-11.9) sec INR 1.27 H (0.93-1.11) sec APTT 34.9 H >200.0 H* (22.0-30.0) sec Microbiology - Last 24 Hours (Table) 07/27/23 13:55 Gram Stain - Final Sputum Sputum Culture - Final Assessment and Plan Assessment: Acute hypoxemic respiratory failure, possibly multifactorial, secondary to acute COPD exacerbation and possible left-sided community-acquired pneumonia and left- sided pleural effusion, possibly parapneumonic. Possibility of a hospital- acquired pathogen cannot be completely ruled out. Patient is currently on 4 L of oxygen nasal cannula and his repeat chest x-ray shows a stable left lung infiltrate and stable left-sided pleural effusion which is essentially small and ultrasound pocket was approximately 4.2 cm in size. Acute left lower lobe pneumonia, most likely bacterial infection and the patient procalcitonin level is also elevated. Patient has leukocytosis. Consider bacterial infection the patient will be covered with broad-spectrum antibiotics for now. 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 Note that the patient was off his anticoagulants due to his frequent falls Frequent falls, with recent left hip femoral neck fracture, status/post left hip cemented unipolar hemiarthroplasty on 07/05/2023 History of fall with multiple left-sided rib fractures and pulmonary contusion History of paroxysmal atrial fibrillation, Eliquis has been stopped Normocytic normochromic anemia, hemoglobin stable from recent hospital admission. Acute on chronic kidney disease, creatinine is improved compared to yesterday the patient is recovering from his acute kidney injury Acute on top of chronic anemia with a drop in hemoglobin of 6.6 ,Without evidence of any bleeding History of thoracic level wound/cellulitis, isolated organism at that time was MRSA History of hyperlipidemia History of hypertension History of former tobacco dependence Chronic obstructive pulmonary disease History of alcoholism Hematuria Plan: The patient was seen and evaluated Medications reviewed Titrate the FiO2 as tolerated Continue vancomycin and Zosyn Continue bronchodilators and steroids Being considered for IVC filter placement Remains on heparin drip for now We will continue to follow I have personally seen and examined the patient, performed the documentation and the assessment and plan as written. Number of minutes spent on the visit: 10.
[2023-07-29] MEDS: THIAMINE 100 MG TAB PO SCH (12:08)
[2023-07-29] MEDS: MULTIVITAMINS, THERA 1 EACH TAB PO SCH (12:08)
[2023-07-29] MEDS: FOLIC ACID 1 MG TAB PO SCH (12:08)
--- NOTE | 2023-07-29 12:57 | P.GSCN ---
History of Present Illness Consult date: 07/29/23 Reason for Consult: Anemia, hematuria possible need for IVC filter Requesting physician: Akila Clemente History of present illness: This is an 88-year-old male with a history of atrial fibrillation who was on Eliquis previously, coronary artery disease hypertension hyperlipidemia and mild cardial myopathy who came in with shortness of breath and pneumonia. Patient had a recent fall last month and fractured his left hip and underwent surgery on 07/05/2023. He was started on Eliquis at that time and came in July 10 to with anemia and was transfused 1 unit of blood and discharged. He presented back on 07/21/2023 for shortness of breath and diagnosed with pneumonia. He had an elevated D-dimer on admission and had a venous duplex that reported a left lower extremity deep vein thrombosis chronic clot versus partial occluded thrombus. He was then started on IV heparin infusion. He had a drop in his hemoglobin to 6.8 requiring 1 unit of blood transfusion. Patient remains anemic concerns for acute blood loss anemia with hematuria. Vascular surgery consulted for possible need of IVC filter placement. He denies any shortness of breath or chest pain at this time. Review of Systems A 14 point review systems was completed all pertinent positives and negatives as stated in the HPI. Past Medical History Past Medical History: Coronary Artery Disease (CAD), Hyperlipidemia, Hypertension Additional Past Medical History / Comment(s): arthritis in back, cataracts History of Any Multi-Drug Resistant Organisms: MRSA Year Discovered:: 01/23/23 MDRO Source:: Back Past Surgical History: Heart Catheterization, Hernia Repair, Orthopedic Surgery, Tonsillectomy Additional Past Surgical History / Comment(s): colonoscopy, iban cataracts, wisdom teeth, left hip replacement Past Anesthesia/Blood Transfusion Reactions: No Reported Reaction Past Psychological History: No Psychological Hx Reported Smoking Status: Light tobacco smoker Past Alcohol Use History: Occasional Past Drug Use History: None Reported - Past Family History Father Family Medical History: Cancer Additional Family Medical History / Comment(s): ca of lymph nodes Medications and Allergies Home Medications Medication Instructions Recorded Confirmed Type Latanoprost Ophth [Xalatan 0.005%] 1 drop BOTH EYES HS 01/02/17 07/22/23 History Thiamine [Vitamin B-1] 100 mg PO DAILY #30 tab 11/27/21 07/22/23 Rx Famotidine [Pepcid] 20 mg PO DAILY 08/29/22 07/22/23 History Albuterol Inhaler [Ventolin Hfa 2 puff INHALATION RT-Q6H PRN 10/27/22 07/22/23 History Inhaler] Atorvastatin [Lipitor] 20 mg PO HS 01/21/23 07/22/23 History Magnesium Hydroxide [Milk of 2,400 mg PO DAILY PRN 01/21/23 07/22/23 History Magnesia] Sennosides [Senokot] 8.6 mg PO DAILY 07/03/23 07/22/23 History Ferrous Sulfate [Iron (65 MG 325 mg PO DAILY #30 tab 07/08/23 07/22/23 Rx Elemental)] Docusate [Colace] 100 mg PO BID 07/11/23 07/22/23 History Menthol [Icy Hot] 1 patch TRANSDERM BID 07/11/23 07/22/23 History Metoprolol Tartrate [Lopressor] 12.5 mg PO BID@0700,1900 07/11/23 07/22/23 History Pantoprazole [Protonix] 40 mg PO DAILY 07/11/23 07/22/23 History HYDROcodone/APAP 5-325MG [Barnhart 1 tab PO Q6HR PRN #6 tab 07/12/23 07/22/23 Rx 5-325] Acetaminophen [Tylenol 8 Hour] 650 mg PO Q6H PRN 07/22/23 07/22/23 History Doxycycline [Vibramycin] 100 mg PO BID@0700,1600 07/22/23 07/22/23 History Ipratropium-Albuterol Nebulize 3 ml INHALATION RT-TID 07/22/23 07/22/23 History [Duoneb 0.5 mg-3 mg/3 ml Soln] lisinopriL [Zestril] 2.5 mg PO DAILY@0700 07/22/23 07/22/23 History Allergies Allergy/AdvReac Type Severity Reaction Status Date / Time No Known Allergies Allergy Verified 07/22/23 11:45 Surgical - Exam Vital Signs Temp Pulse Resp BP Pulse Ox 99.2 F 120 H 34 H 149/71 95 07/21/23 21:50 07/21/23 21:50 07/21/23 21:50 07/21/23 21:50 07/21/23 21:50 General appearance: The patient is alert, oriented, appears in no acute distress. HET: Head is normocephalic and atraumatic. Neck: Supple. Heart: Regular. Lungs: Equal expansion, normal respiratory effort. Abdomen: Soft, nontender, nondistended. Extremities: Right upper extremity bruising, hematoma noted soft. Bilateral lower extremity edema. Bilateral lower extremities and soft boots. Neurological: No focal deficits. Alert and oriented. Results - Labs 07/28/23 06:11 07/29/23 12:33 Abnormal Lab Results - Last 24 Hours (Table) 07/28/23 07/28/23 07/28/23 Range/Units 06:11 06:11 10:18 RBC 2.76 L (4.40-5.60) X 10*6/uL Hgb 7.6 L (13.0-17.0) g/dL Hct 24.5 L (39.6-50.0) % MCHC 31.0 L (32.0-37.0) g/dL RDW 17.6 H (11.5-14.5) % Immature Gran # 0.17 H (0.00-0.04) X 10*3/uL Lymphocytes # 0.31 L (0.90-5.00) X 10*3/uL Eosinophils # 0 L (0.04-0.35) X 10*3/uL PT 13.5 H (9.9-11.9) sec INR 1.27 H (0.93-1.11) sec APTT 30.4 H (22.0-30.0) sec 07/28/23 07/28/23 Range/Units 17:37 23:14 RBC (4.40-5.60) X 10*6/uL Hgb (13.0-17.0) g/dL Hct (39.6-50.0) % MCHC (32.0-37.0) g/dL RDW (11.5-14.5) % Immature Gran # (0.00-0.04) X 10*3/uL Lymphocytes # (0.90-5.00) X 10*3/uL Eosinophils # (0.04-0.35) X 10*3/uL PT (9.9-11.9) sec INR (0.93-1.11) sec APTT 34.9 H >200.0 H* (22.0-30.0) sec Microbiology - Last 24 Hours (Table) 07/27/23 13:55 Gram Stain - Final Sputum Sputum Culture - Final - Imaging Comments: Lower extremity venous duplex reports suboptimal study long segment left lower extremity DVT is present. Findings reflect chronic clot or partial occlusive thrombus. Correlate clinically. Mild to moderate diffuse subcutaneous edema seen on images obtained. Right upper extremity venous duplex reports no evidence of deep venous thrombosis of the right upper extremity. Suggestion of nonocclusive thrombus within the right cephalic vein. Assessment and Plan Assessment: 1. Left lower extremity deep vein thrombosis 2. Anemia 3. Nonocclusive thrombus right cephalic vein 4. Right upper extremity bruising 5. Coagulopathy on heparin drip 6. Atrial fibrillation 7. Recent left hip fracture s/p surgery on 07/05/2023 Plan: 1. Continue heparin drip for now 2. Daily CBC 3. Discussed with primary medical team following patient need to determine if anticoagulation is needed for history of atrial fibrillation. If anticoagulation needs to be continued there is no need for IVC filter. 4. Possible IVC filter placement, timing to be determined Thank you for this consultation, we will continue to follow. The impression and plan of care has been dictated as directed. I performed a history and examination of this patient, discussed the same with the dictator. I agree with the dictator's note ,documented as a scribe. Any additional findings or plans will be noted.
[2023-07-29 14:07] LABS: African American GFR (CKD) 55 (>60 ml/min/1.73 sqM); Non-African American GFR(CKD) 47 (>60 ml/min/1.73 sqM)
--- NOTE | 2023-07-30 05:57 | P.PN ---
Subjective Progress Note Date: 07/29/23 Patient is a 88-year-old male with a past medical history of hypertension, hyperlipidemia, paroxysmal atrial fibrillation coronary artery disease nonobstructive, mild cardiomyopathy ejection fraction 45-50 %, history of right tobacco smoker and left hip hemiarthroplasty on 07/05/2023 due to mechanical fa ll. Patient presented from nursing facility due to worsening shortness of breath/dyspnea. Patient was diagnosed with pneumonia and was started on doxycycline. He was placed on oxygen at 4 L via nasal cannula and EMS was called due to hypoxia with pulse ox down to 80% and patient was tachycardic and tachypneic. Patient was placed on BiPAP by EMS and was transferred to ER. Otherwise patient denies any complaints of chest pain. Cough with occasional sputum production. Tmax 101.0 on admission. Patient was recently admitted to due to acute blood loss anemia from 07/11/2023 to 07/12/2023. requiring 1 unit PRBC transfusion. Eliquis was held and was discharged back to custodial facility for rehab. Chest x-ray showed chronic parenchymal changes with new small left pleural effusion and left lower lobe acute infiltrates/atelectasis. EKG showed sinus tachycardia with possible left atrial enlargement. Lower extremity venous duplex showed suboptimal study. Long segment left lower extremity DVT is present. Findings reflect chronic clot or partially occlusive thrombus. Correlate clinically. Mild to moderate diffuse subcutaneous edema is seen on images obtained. Laboratory data showed WBC 13.7 hemoglobin 8.9 and platelets 708, D-dimer 4.11 ABG showed pH 7.35 pCO2 39, pO2 183 Sodium 130 potassium 4.9 chloride 97 bicarb is 19 BUN 59 and creatinine 2.09 and blood sugar 106 and lactic acid 3.1 total bilirubin 3.5 and alk phos 268, proBNP 5700, troponin 0.027 and albumin 2.8 Influenza A, B, RSV and COVID-19 PCR not detected. 07/23/2023 Patient is seen and evaluated in follow-up. Patient was continued on BiPAP and is currently maintaining oxygen saturations above 90% on 3 L. Patient continues on IV heparin drip with left lower extremity DVT. VQ scan was ordered as jean t was unable to have CT of the chest for PE evaluation as kidney functions are elevated. Will hold on VQ scan for now as patient unable to tolerate lying flat. Continue IV heparin and will likely need to transition back to Eliquis. 07/24/2023 Patient is seen and evaluated in follow-up today with pulmonary following. Patient continues on 3 L via nasal cannula and has been off of the BiPAP. Fol low-up chest x-ray today shows increasing left lower lobe pleural effusion with associated atelectasis and/or infiltrate. Strongly encourage incentive spirometer although patient needs much encouragement as he is extremely weak and confused at times. Patient continues on IV heparin and will for now as there will be a follow-up chest x-ray in the a.m. and may require a thoracentesis with pulmonary following closely. Will discuss with pulmonary in regards to transitioning to Eliquis or if patient is appropriate for any further anticoagulation. Patient is afebrile with no reported chest pain or worsening shortness of breath. Patient is continued on IV steroids along with antibiotics and DuoNeb breathing treatments. Encouraged oral intake and recommend aspiration precautions with head of the bed elevated 45 degrees at all times. 07/25/2023 Patient is seen this morning currently asleep although arousable. Patient maintained on 3 L via nasal cannula with pulmonary following. Follow-up chest x-ray shows stable effusion and pulmonary reporting no plans for thoracentesis at this time. Patient was continued on IV heparin although will transition to oral Eliquis and monitor for any bleeding. There are no active signs of bleeding at this time although hemoglobin was noted to be 6.6 today. Will transfuse 1 unit of PRBC follow-up on repeat labs. Patient continues on antibiotics sided pneumonia. Patient is afebrile and denies any chest pain or palpitations. Patient has a congested cough and difficulty expectorating. Encouraged incentive spirometer use and sitting up more often. Continue with DuoNeb treatments at this time. 07/26/2023 Patient is seen and evaluated in follow-up status post 1 unit of PRBC. Hemoglobin is 7.4 today with no active bleeding noted. Patient continues on DuoNeb treatments and will continue on antibiotics with pulmonary following closely. 07/27/2023 Patient is currently lying in the bed. Awake alert. Still having shortness of breath and oxygen requirement at 3 L via nasal cannula. Patient is on antibiotics in the form of vancomycin and Zosyn. Nasal swab cultures positive for MRSA. Patient is also on IV Solu-Medrol 60 mg every 6 hourly and DuoNebs. Patient was started back on anticoagulation with heparin drip. Vascular surgery was consulted. DVT. Chest x-ray showed unchanged left pleural effusion with associated atelectasis or infiltrate. Laboratory data showed WBC 8.0 hemoglobin 8.1 and platelets 288 INR 1.3. FOBT negative. 07/28/2023 Patient is lying in the bed. Awake alert but lethargic and weak. And currently requiring 4 L oxygen via nasal cannula. Currently on heparin drip due to lower extremity DVT and also on IV antibiotics. Hemoglobin is fairly stable at 7.6. No hematuria noted. Patient is also being continued on IV Solu-Medrol and DuoNebs. Pulmonary is on board. Vascular surgery was consulted. Patient does have significant right upper extremity swelling with possible extravasation of the IV line. Duplex scan was ordered to rule DVT. Laboratory showed WBC 6.8 hemoglobin 7.6 and platelets 265 Sodium 139 potassium 3.5 chloride 110 bicarb is 23 BUN 53 and creatinine 1.24 and blood sugar 166. Calcium 8.0. 07/29/2023 Patient is seen in follow-up today with multiple medical consultations hilario bee. Patient is continued on 5 L via nasal cannula although 99% and discussed with nursing staff about weaning FiO2 as tolerated. Patient continues on IV heparin for lower extremity DVT and hemoglobin is stable above 7. No further hematuria noted. Vascular surgery consulted for possible IVC filter placement as patient is a poor candidate for anticoagulation. Patient continues with some right upper extremity swelling and DVT was ruled out, difficult to exclude a thrombus in the cephalic vein where an IV was placed. Continue with supportive care and elevating that extremity. Patient with significant weakness recommend PT/OT therapy daily. [facility] once cleared by consultations. Will await vascular surgery evaluation. Patient to continue on breathing inhalational treatments along with antibiotics and IV steroids. 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 Review of systems: Constitutional: No reports of fatigue, fever, or chills Cardiovascular: No reports of chest pain or palpitations Respiratory: No reports of worsening shortness of breath, reports weak cough t hat is chronic GI: No reports of nausea, vomiting, or diarrhea : No reports of dysuria or retention, no further hematuria Neurovascular: reports of extreme generalized weakness and lower extremity pain with swelling especially the left leg when being moved as well as right upper arm All medications have been reviewed PHYSICAL EXAMINATION: Patient is lying in the bed., awake alert and oriented x 2, confused at times. Baseline. Currently on 5 L via nasal cannula, well-developed, thin built, elderly appearing, ill-appearing HEENT: Normocephalic. Neck is supple. Pupils reactive. Nostrils clear. Oral cavity is moist. Neck reveals no JVD, carotid bruits, or thyromegaly. CHEST EXAMINATION: Trachea is central. Symmetrical expansion. Left basilar coarse sounds. Mild expiratory wheeze.. Crackles noted at the bases CARDIAC: S1, S2 are muffled ABDOMEN: Soft. Thin. Bowel sounds normal. No organomegaly. No abdominal bruits. Extremities: reveal no edema. No clubbing or cyanosis, bilateral lower extremity swelling worse on the left, foot drop noted on the left as well. Left hip surgical site has scabbing noted with no redness or drainage noted, healing well and approximated Neurologically awake, alert, oriented x 2-3. Diffusely weak Skin: No rash or skin lesions. Psychiatric: Cooperative. Could not be assessed completely Musculoskeletal: No joint swelling or deformity. Assessment: Acute hypoxemic respiratory failure due to left lower lobe pneumonia and left sided small pleural effusion and COPD. Patient was requiring BiPAP on admission. Transitioned to nasal cannula, currently 5 L at 99% Acute on chronic anemia, acute blood loss secondary to anticoagulation and hematuria, no GI bleed noted Hematuria, possibly secondary to resumption of anticoagulation versus possible trauma as patient does occasionally pull at IVs and tubings. Resolved Sepsis secondary to pneumonia, bacterial, present on admission Acute left lower extremity DVT. Elevated D-dimer level. CT PE could not be done due to elevated creatinine level. Right upper extremity arm swelling, DVT ruled out, thrombus of the cephalic vein from an IV site Acute kidney injury likely prerenal with possible ATN. CKD stage III. Hypovolemic hyponatremia, secondary to poor oral intake Lactic acidosis 3.1 on admission, secondary to left lower lobe pneumonia, improved History of mechanical fall status post left hip cemented unipolar hemiarthroplasty on 07/05/2023 Recent admission with anemia requiring blood transfusion 1 unit PRBC. Hemoglobin is stable at 7.4 Paroxysmal atrial fibrillation, currently rate controlled currently on heparin Mild cardiomyopathy with ejection fraction 45 to 50%. EF improved to 55 to 60% as per recent echocardiogram on 07/05/2023 Coronary artery disease nonobstructive Hypertension Hyperlipidemia History of tobacco use History of EtOH abuse GI prophylaxis with PPI DVT prophylaxis, IV heparin No code Plan: Patient was maintained on BiPAP on admission and has transition to 5 L via nasal cannula. Current oxygen saturation is 99%. Discussed with nursing staff about weaning FiO2. Pulmonary following. Continue with DuoNebs, IV Solu-Medrol 60 mg every 6 hourly. Patient was given azithromycin and ceftriaxone in the ER. Currently on vancomycin and Zosyn as procalcitonin was elevated. Patient was started on heparin drip due to left lower extremity acute DVT. VQ scan was ordered due to elevated creatinine level to rule out PE. Per pulmonary no need for V/Q at this time. Follow-up chest x-ray showing stable pleural effusion with no plans of thoracentesis at this time. IV heparin was discontinued and Eliquis was resumed. There is noted hematuria noted in the [place] and will hold eliquis and consult vascular surgery for possible IVC filter placement as patient appears to not be a good candidate for anticoagulation given continued significant anemia with bleeding, frequent falls. Will await consult and appreciate input and recommendations. Heparin has been resumed per pulmonary Hemoglobin was 7.4 today and will monitor closely and follow-up with repeat labs. Transfuse if 7 or less. Recommend PT/OT therapy evaluation, case management following as patient will be returning to ECF on discharge Continue with wound long term medications reviewed and resumed as appropriate Patient having occasional periods of confusion and will continue Seroquel as needed at night low-dose in the event patient becomes agitated. Encouraged opening the shades and blinds to the windows and possibly sitting up out of the bed more often and frequent reorientation. Patient is no code. Patient will require insurance authorization for discharge to ECF Due to multiple complex medical issues, prognosis is guarded The impression and plan of care has been dictated by Akila Clemente, Nurse Practitioner as directed. Dr. Carrington MD I have performed a history and examination and MDM of this patient, discussed the same with the dictator, and agree with the dictator's assessment and plan as written ,documented as a scribe. Based on total visit time, I have performed more than 50% of the visit. Objective - Vital Signs Vital signs: Vital Signs Temp 97.5 F L 07/29/23 07:02 Pulse 96 07/29/23 07:02 Resp 18 07/29/23 07:02 BP 86/55 07/29/23 07:02 Pulse Ox 97 07/29/23 07:02 FiO2 40 07/23/23 02:57 Intake & Output 07/28/23 07/29/23 07/29/23 18:59 06:59 18:59 Intake Total 235.941 127.26 59.307 Output Total 425 450 Balance -189.059 -322.74 59.307 Weight 103.5 kg Intake: Intake, IV Titration 235.941 127.26 59.307 Amount Heparin Sod,Pork in 0.45% 235.941 127.26 59.307 NaCl 25,000 unit In 0.45 % NaCl 1 250ml.bag @ 9.9 UNITS/KG/HR 9.999 mls/hr IV .Q24H [facility] Rx#: [id number] Output: Urine 425 450 Other: Voiding Method Indwelling Catheter Indwelling Catheter # Bowel Movements 1 1 - Labs CBC & Chem 7: 07/28/23 06:11 07/29/23 12:33 Labs: Abnormal Lab Results - Last 24 Hours (Table) 07/28/23 07/28/23 07/28/23 Range/Units 06:11 17:37 23:14 PT 13.5 H (9.9-11.9) sec INR 1.27 H (0.93-1.11) sec APTT 34.9 H >200.0 H* (22.0-30.0) sec Microbiology - Last 24 Hours (Table) 07/27/23 13:55 Gram Stain - Final Sputum Sputum Culture - Final
[2023-07-30 11:03] LABS: Anisocytosis Slight; Hypochromasia Marked; MCH 28.7 pg (25.0-35.0); MCHC 31.7 g/dL (31.0-37.0); MCV 90.5 fL (80.0-100.0); Mean Platelet Volume 9.5; Platelet Count 173 k/uL (150-450); RBC 2.11 m/uL (4.30-5.90); RDW 17.3 % (11.5-15.5); WBC 4.5 k/uL (3.8-10.6)
--- NOTE | 2023-07-30 11:06 | P.PN ---
Progress Note - Text Progress Note Date: 07/30/23 Patient seen this morning sitting up in bed. Primary medical team has stated that patient is not a good candidate for anticoagulation due to frequent falls and anemia, hematuria. Discussed with patient IVC filter placement procedure again and patient is willing to proceed. Discussed with him as well that patient will need to be made a full code during the procedure. He verbalizes understanding and is agreeable. Will plan for IVC filter placement this afternoon. The impression and plan of care has been dictated as directed. Dr. Neal I performed a history and examination of this patient, discussed the same with the dictator. I agree with the dictator's note ,documented as a scribe. Any additional findings or plans will be noted.
[2023-07-30 11:19] LABS: HCT 19.1 % (39.0-53.0); HGB 6.1 gm/dL (13.0-17.5)
[2023-07-30 11:28] LABS: African American GFR (CKD) 60 (>60 ml/min/1.73 sqM); Non-African American GFR(CKD) 52 (>60 ml/min/1.73 sqM)
[2023-07-30 12:25] LABS: Band Neutrophils % 1 %; Lymphocytes # (M) 0.59 k/uL (1.0-4.8); Monocytes # (M) 0.27 k/uL (0-1.0); Myelocytes # (M) 0.05 k/uL (0); Myelocytes % 1 %; Neutrophils % (M) 80 %; Nucleated Red Blood Cells 0 /100 WBC (0-0); Total Cells Counted 200
[2023-07-30 12:26] LABS: Poikilocytosis (M) Present
[2023-07-30] MEDS: SODIUM CHLORIDE 0.9% 500 ML 500 ML IV ONE (12:26)
[2023-07-30] MEDS: LIDOCAINE 1% INJ 10MG/ML (20 ML MDV) SQ ONE (12:40)
[2023-07-30] MEDS: IOPAMIDOL-370 100ML BTL INJ ONE (13:02)
--- NOTE | 2023-07-30 13:12 | P.PN ---
Subjective Progress Note Date: 07/30/23 Patient is an 88-year-old male with past medical history significant for hypertension, hyperlipidemia, paroxysmal atrial fibrillation previously anticoagulated on Eliquis, frequent falls. Patient recently fell from his wheelchair and had sustained a left hip fracture. He underwent a left hip cemented unipolar hemiarthroplasty on 07/05/2023. He was then discharged back to his extended care facility. Patient was sent back in from his ECF yesterday for evaluation of acute dyspnea. He was reportedly diagnosed with pneumonia earlier in the day, and started on doxycycline. When EMS arrived to the [facility], he was hypoxic with an SpO2 of less than 80%. He was also tachypneic and tachycardic and in respiratory distress. He was transferred to our facility on BiPAP. He is currently sitting up in bed, in some respiratory distress. On BiPAP with settings 12/6 and FiO2 of 100%. Respiratory rate is in the mid 30s and tidal volumes are greater than 800. He is unable to provide any information at this time. There is accessory muscle use. ABG done on above-mentioned settings showed a PaO2 of 183, pCO2 of 39, pH of 7.35. Chest x-ray shows a left lower lobe infiltrate and or atelectasis and small left-sided pleural effusion, possibly parapneumonic. CBC on arrival: WBC count of 30.7, hemoglobin 8.9, hematocrit 27.8, platelets 708. CMP on arrival: Sodium 130, potassium 4.9, chloride 97, serum bicarb 19, BUN 59, creatinine 2.09, glucose 106. Normal saline infusing at 130 MLS per hour. LFTs mildly elevated. Troponin 0.027. NT proBNP 5700. There is a component of acute on chronic kidney injury. Negative for influenza, RSV, COVID. Patient's D-dimer was elevated. For this reason a venous Doppler of the lower extremities was ordered, and the patient was found to have a left lower extremity DVT. Patient was previously anticoagulated on Eliquis, however, this has been stopped after his most recent fall and hip fracture. Left hip incision is approximated and clean and dry. No drainage. Hemoglobin is stable at 8.9 g/dL. Patient denies any bright red blood, melanotic stools, or hematemesis. Patient's respiratory status is currently labile, will continue to closely monitor. Patient may need transfer to the intensive care unit. In the emergency department and I had a lengthy discussion with the . The patient is currently on a BiPAP and is tolerating the BiPAP reasonably well with generation of adequate tidal volume above 500. No significant tachypnea. The patient is on a pressure setting of 12/6 and a meters of water and FiO2 has been weaned down.The white cell count from today is 29 with a hemoglobin of 7.6 and a platelet count of 527. Blood gases show a pH of 7.35 with a pCO2 of 39 and pO2 of 183 and this was on FiO2 of 100%. Viral screen has been negative and the procalcitonin level is at 4.2. BUN is at 69 with a creatinine of 2.09. Cultures were sent and the results are still pending for now. The chest x-ray showed a new area of consolidation of the left lower lobe in addition to a small left-sided pleural effusion. Ultrasound of the chest was also ordered and the results were consistent with a small left-sided pleural effusion with a 4.2 cm pocket. 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 Noted the patient was on anticoagulation with Eliquis in the past and this anticoagulation was discontinued because of his frequent falls. Noted the procalcitonin level is elevated at 4.2 On today's evaluation of 07/23/2023, seen the patient for a follow-up. The patient got moved out of the emergency department and the patient is currently on the medical floor. He was taken off the BiPAP this morning and the patient is currently on 2 L of O2 with a pulse ox of 98%. Alert awake and communicating. The white cell count is dropped down to 17.4 with a hemoglobin of 8.2 and a platelet count of 579. Hemodynamically stable. There is also interval improvement in the creatinine which is down to 1.43 with a BUN of 61. Sodium levels at 134. The patient remains on a combination of Zosyn and vancomycin. Remains on bronchodilators. Remains on IV Solu-Medrol 60 mg every 6 hours. The patient is also on IV heparin. PTT is therapeutic at this point in time. No evidence of any bleeding. Awake and alert and communicating. On today's evaluation of 07/24/2023, the patient is being seen for a follow-up. Clinically stable and the patient is currently on liters of oxygen by nasal cannula with a pulse ox of 94%. Repeat chest x-ray was done today and it shows some increase in the left lower lobe pleural effusion. There is also some infiltration/atelectasis. However clinically, the patient is stable. The patient is currently off the BiPAP. He has developed a small left-sided pleural effusion, likely parapneumonic in nature. Ultrasound of the chest was done yesterday showed a 4.2 cm pocket in the left lung. The WBC count is at 10.1 whi ch is improved with a hemoglobin of 7.7 slightly lower compared to yesterday with a platelet count of 537. Rest of the electrolytes are still pending. The patient remains on IV heparin. Remains on Zosyn and vancomycin coverage. No significant tachycardia. The patient is on DuoNeb updrafts. The patient on IV Solu-Medrol. The patient on Zosyn and vancomycin. The patient is on metoprolol 12.5 mg p.o. twice a day. On today's evaluation on 07/25/2023, the patient continues to improve. The white cell count is down to 7.8. The patient remains on 3 L of oxygen by nasal cannula. No significant respite distress. Repeat chest x-ray was done today and shows a stable left-sided pleural effusion that has not changed in size and the patient also has some stable infiltration of the left lung base consistent with pneumonia but small parapneumonic effusion. Hemoglobin is currently down to 6.6. The patient will be given a unit of packed RBC accordingly. Rest of the electrolytes show a creatinine of 1.33 with a BUN of 56 and a sodium levels at 138 with a potassium level of 4.1. The patient remains on IV heparin. He does have a DVT of the left lower extremity. No evidence of any GI bleeding at this point in time while being on IV heparin. On today's evaluation on 07/26/2023, the patient is being seen for a follow-up. The patient was given a unit of packed RBC yesterday and the hemoglobin is currently at 7.4. He is on oxygen 3 L with a pulse ox of 92%. He is lethargic and weak. Nevertheless denies having any significant shortness of breath. No chest pain. Remains on Zosyn and vancomycin. Nasal screen for MRSA was positive. Possibility of MRSA pneumonia cannot be completely excluded. The patient also developed a small parapneumonic effusion not amenable for thoracen tesis. He is a DNR/DNI CODE STATUS. Remains on bronchodilators. Remains on steroids. In addition, the patient is experiencing some hematuria at baseline and anticoagulation was stopped. Based on his high risk for anticoagulation and previous history of falls and concern for bleed, anticoagulation was placed on hold and vascular surgery was consulted for IVC filter placement. On today's evaluation, the patient is essentially unchanged remains on 3 L of oxygen by nasal cannula with a pulse ox of 97%. Chest x-ray was repeated this morning and the patient has an unchanged left-sided pleural effusion and left lower lobe consolidation. Remains on Zosyn and vancomycin. Labs from today shows a white cell count of 8 with a hemoglobin of 8 and a platelet count of 329. Electrolytes are within normal limits from yesterday. Creatinine is down to 1.2. No active hematuria and patient will be placed back on IV heparin pending vascular surgery consult 07/28/2023, patient is being seen for a follow-up. The patient is currently on oxygen at 4 L. Calm and comfortable. Noted frustrated. He is weak and quite debilitated at this point in time. He remains on Zosyn and vancomycin. He remains on IV heparin. No evidence of any hematuria. Howard catheter is in place. Hemoglobin is at 7.6. BUN is 53 with creatinine 1.24 levels at 139. Limited congested cough. No significant sputum production. He did encounter some swelling l upper extremity and a Doppler showed no evidence of any DVT in the right upper extremity. Nonocclusive thrombus was seen within the right cephalic vein. The patient is seen today July 29, 2023 in follow-up on the regular medical floor. He is currently sitting up in bed. Awake and alert in no acute distress. He is maintaining good O2 saturations in the upper 90s on 5 L/min per nasal cannula. He is afebrile. Hemodynamically stable. He remains on a heparin drip. Continued on bronchodilators and steroids. Antibiotics in the form of vancomycin and Zosyn. The patient is seen today July 30, 2023 in follow-up on the regular medical floor. He is awake and alert in no acute distress. He is maintaining O2 saturations in the 90s on 5 L/min per nasal cannula. White count 4.5. Hemoglobin 6.1. Platelets 173. Creatinine 1.24. He remains on a heparin drip. The plan is for IVC filter placement today. Packed red blood cell transfusion has been ordered. Remains on vancomycin and Zosyn. Continued on Flovent, albuterol, Spiriva. Remains on IV Solu-Medrol. Objective - Vital Signs Vital signs: Vital Signs Temp 97.0 F L 07/30/23 07:22 Pulse 68 07/30/23 07:22 Resp 20 07/30/23 07:22 BP 130/75 07/30/23 07:22 Pulse Ox 99 07/30/23 07:22 FiO2 40 07/23/23 02:57 Intake & Output 07/29/23 07/30/23 07/30/23 18:59 06:59 18:59 Intake Total 119.001 111.738 66.744 Output Total 351 Balance -231.999 111.738 66.744 Weight 103.5 kg 104 kg Intake: IV 50 Intake, IV Titration 119.001 111.738 16.744 Amount Heparin Sod,Pork in 0.45% 119.001 111.738 16.744 NaCl 25,000 unit In 0.45 % NaCl 1 250ml.bag @ 9.9 UNITS/KG/HR 9.999 mls/hr IV .Q24H [facility] Rx#: [id number] Output: Urine 350 Stool 1 Other: Voiding Method Indwelling Catheter Indwelling Catheter Indwelling Catheter # Bowel Movements 1 1 - Exam GENERAL EXAM: Alert, frail 88-year-old male, on 5 L nasal cannula, in no apparent distress. HEAD: Normocephalic. EYES: Normal reaction of pupils, equal size. NOSE: Clear with pink turbinates. THROAT: No erythema or exudates. NECK: No masses, no JVD. CHEST: No chest wall deformity. LUNGS: Equal air entry with crackles in the left lung base. CVS: S1 and S2 normal with no audible murmur, regular rhythm. ABDOMEN: No hepatosplenomegaly, normal bowel sounds, no guarding or rigidity. SPINE: No scoliosis or deformity SKIN: No rashes CENTRAL NERVOUS SYSTEM: No focal deficits, tone is normal in all 4 extremities. EXTREMITIES: Multiple areas of ecchymosis. Left hip incision clean dry well- approximated there is no peripheral edema. No clubbing, no cyanosis. Peripheral pulses are intact. - Labs CBC & Chem 7: 07/30/23 10:39 07/30/23 10:39 Labs: Abnormal Lab Results - Last 24 Hours (Table) 07/29/23 07/29/23 07/30/23 Range/Units 12:33 18:38 02:03 RBC (4.30-5.90) m/uL Hgb (13.0-17.5) gm/dL Hct (39.0-53.0) % RDW (11.5-15.5) % Lymphocytes # (Manual) (1.0-4.8) k/uL Myelocytes # (Manual) (0) k/uL APTT 159.5 H* 150.2 H* (22.0-30.0) sec Creatinine 1.33 H (0.66-1.25) mg/dL 07/30/23 07/30/23 Range/Units 10:39 10:39 RBC 2.11 L (4.30-5.90) m/uL Hgb 6.1 L* D (13.0-17.5) gm/dL Hct 19.1 L* (39.0-53.0) % RDW 17.3 H (11.5-15.5) % Lymphocytes # (Manual) 0.59 L (1.0-4.8) k/uL Myelocytes # (Manual) 0.05 H (0) k/uL APTT 31.5 H (22.0-30.0) sec Creatinine (0.66-1.25) mg/dL Assessment and Plan Assessment: Acute hypoxemic respiratory failure, possibly multifactorial, secondary to acute COPD exacerbation and possible left-sided community-acquired pneumonia and left- sided pleural effusion, possibly parapneumonic. Possibility of a hospital- acquired pathogen cannot be completely ruled out. Patient is currently on 5 L of oxygen nasal cannula and his repeat chest x-ray shows a stable left lung infiltrate and stable left-sided pleural effusion which is essentially small and ultrasound pocket was approximately 4.2 cm in size. Acute left lower lobe pneumonia, most likely bacterial infection and the patient procalcitonin level is also elevated. Patient has leukocytosis. Consider bacterial infection the patient will be covered with broad-spectrum antibiotics for now. 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 Note that the patient was off his anticoagulants due to his frequent falls and anemia. The patient is scheduled for IVC filter placement today July 30, 2023 Frequent falls, with recent left hip femoral neck fracture, status/post left hip cemented unipolar hemiarthroplasty on 07/05/2023 History of fall with multiple left-sided rib fractures and pulmonary contusion History of paroxysmal atrial fibrillation, Eliquis has been stopped Acute on chronic kidney disease, creatinine is improved compared to yesterday the patient is recovering from his acute kidney injury Acute on top of chronic anemia with a drop in hemoglobin again at 6.1 on 07/30/2023, a second unit of PRBCs initiated History of thoracic level wound/cellulitis, isolated organism at that time was MRSA History of hyperlipidemia History of hypertension History of former tobacco dependence Chronic obstructive pulmonary disease History of alcoholism Hematuria Poor overall functional performance based on the above-mentioned multiple comorbidities Plan: The patient was seen and evaluated Medications and labs reviewed Hemoglobin again down to 6.1, receiving packed red blood cells Discontinue heparin drip Being considered for IVC filter placement Continue vancomycin and Zosyn Continue bronchodilators and steroids Titrate down the FiO2 as tolerated We will continue to follow I have personally seen and examined the patient, performed the documentation and the assessment and plan as written. Number of minutes spent on the visit: 10.
--- NOTE | 2023-07-30 13:49 | IR ---
EXAMINATION TYPE: IR IVC filter placement Intraoperative/procedural fluoroscopic services were provid ed. CLINICAL INDICATION:Male, 88 years old with history of DVT, 1.5m/24.0838DAP, rt gr IVC filter placeme nt; , [facility] Total fluoroscopy time is 1.5 min. DAP: 24.0838 Gycm2 uGym2 Please see the operative/procedural note for further details.
[2023-07-30] MEDS: FUROSEMIDE 10 MG/ML 2 ML VIAL IV ONE (18:38)
[2023-07-30] MEDS: methylPREDNISolone SOD SUCCI 40 MG/ML 1 ML VIAL IV SCH (21:58)
[2023-07-31] MEDS: FUROSEMIDE 10 MG/ML 2 ML VIAL IV STA (00:39)
[2023-07-31] MEDS: VANCOMYCIN 1,500 MG in SODIUM CHLORIDE 0.9% 500 ML 500 ML IVPB SCH (06:11)
--- NOTE | 2023-07-31 06:47 | P.PN ---
Subjective Progress Note Date: 07/30/23 Patient is a 88-year-old male with a past medical history of hypertension, hyperlipidemia, paroxysmal atrial fibrillation coronary artery disease nonobstructive, mild cardiomyopathy ejection fraction 45-50 %, history of right tobacco smoker and left hip hemiarthroplasty on 07/05/2023 due to mechanical fa ll. Patient presented from nursing facility due to worsening shortness of breath/dyspnea. Patient was diagnosed with pneumonia and was started on doxycycline. He was placed on oxygen at 4 L via nasal cannula and EMS was called due to hypoxia with pulse ox down to 80% and patient was tachycardic and tachypneic. Patient was placed on BiPAP by EMS and was transferred to ER. Otherwise patient denies any complaints of chest pain. Cough with occasional sputum production. Tmax 101.0 on admission. Patient was recently admitted to due to acute blood loss anemia from 07/11/2023 to 07/12/2023. requiring 1 unit PRBC transfusion. Eliquis was held and was [facility]. Chest x-ray showed chronic parenchymal changes with new small left pleural effusion and left lower lobe acute infiltrates/atelectasis. EKG showed sinus tachycardia with possible left atrial enlargement. Lower extremity venous duplex showed suboptimal study. Long segment left lower extremity DVT is present. Findings reflect chronic clot or partially occlusive thrombus. Correlate clinically. Mild to moderate diffuse subcutaneous edema is seen on images obtained. Laboratory data showed WBC 13.7 hemoglobin 8.9 and platelets 708, D-dimer 4.11 ABG showed pH 7.35 pCO2 39, pO2 183 Sodium 130 potassium 4.9 chloride 97 bicarb is 19 BUN 59 and creatinine 2.09 and blood sugar 106 and lactic acid 3.1 total bilirubin 3.5 and alk phos 268, proBNP 5700, troponin 0.027 and albumin 2.8 Influenza A, B, RSV and COVID-19 PCR not detected. 07/23/2023 Patient is seen and evaluated in follow-up. Patient was continued on BiPAP and is currently maintaining oxygen saturations above 90% on 3 L. Patient continues on IV heparin drip with left lower extremity DVT. VQ scan was ordered as jean t was unable to have CT of the chest for PE evaluation as kidney functions are elevated. Will hold on VQ scan for now as patient unable to tolerate lying flat. Continue IV heparin and will likely need to transition back to Eliquis. 07/24/2023 Patient is seen and evaluated in follow-up today with pulmonary following. Patient continues on 3 L via nasal cannula and has been off of the BiPAP. Fol low-up chest x-ray today shows increasing left lower lobe pleural effusion with associated atelectasis and/or infiltrate. Strongly encourage incentive spirometer although patient needs much encouragement as he is extremely weak and confused at times. Patient continues on IV heparin and will for now as there will be a follow-up chest x-ray in the a.m. and may require a thoracentesis with pulmonary following closely. Will discuss with pulmonary in regards to transitioning to Eliquis or if patient is appropriate for any further anticoagulation. Patient is afebrile with no reported chest pain or worsening shortness of breath. Patient is continued on IV steroids along with antibiotics and DuoNeb breathing treatments. Encouraged oral intake and recommend aspiration precautions with head of the bed elevated 45 degrees at all times. 07/25/2023 Patient is seen this morning currently asleep although arousable. Patient maintained on 3 L via nasal cannula with pulmonary following. Follow-up chest x-ray shows stable effusion and pulmonary reporting no plans for thoracentesis at this time. Patient was continued on IV heparin although will transition to oral Eliquis and monitor for any bleeding. There are no active signs of bleeding at this time although hemoglobin was noted to be 6.6 today. Will transfuse 1 unit of PRBC follow-up on repeat labs. Patient continues on antibiotics sided pneumonia. Patient is afebrile and denies any chest pain or palpitations. Patient has a congested cough and difficulty expectorating. Encouraged incentive spirometer use and sitting up more often. Continue with DuoNeb treatments at this time. 07/26/2023 Patient is seen and evaluated in follow-up status post 1 unit of PRBC. Hemoglobin is 7.4 today with no active bleeding noted. Patient continues on DuoNeb treatments and will continue on antibiotics with pulmonary following closely. 07/27/2023 Patient is currently lying in the bed. Awake alert. Still having shortness of breath and oxygen requirement at 3 L via nasal cannula. Patient is on antibiotics in the form of vancomycin and Zosyn. Nasal swab cultures positive for MRSA. Patient is also on IV Solu-Medrol 60 mg every 6 hourly and DuoNebs. Patient was started back on anticoagulation with heparin drip. Vascular surgery was consulted. DVT. Chest x-ray showed unchanged left pleural effusion with associated atelectasis or infiltrate. Laboratory data showed WBC 8.0 hemoglobin 8.1 and platelets 288 INR 1.3. FOBT negative. 07/28/2023 Patient is lying in the bed. Awake alert but lethargic and weak. And currently requiring 4 L oxygen via nasal cannula. Currently on heparin drip due to lower extremity DVT and also on IV antibiotics. Hemoglobin is fairly stable at 7.6. No hematuria noted. Patient is also being continued on IV Solu-Medrol and DuoNebs. Pulmonary is on board. Vascular surgery was consulted. Patient does have significant right upper extremity swelling with possible extravasation of the IV line. Duplex scan was ordered to rule DVT. Laboratory showed WBC 6.8 hemoglobin 7.6 and platelets 265 Sodium 139 potassium 3.5 chloride 110 bicarb is 23 BUN 53 and creatinine 1.24 and blood sugar 166. Calcium 8.0. 07/29/2023 Patient is seen in follow-up today with multiple medical consultations hilario bee. Patient is continued on 5 L via nasal cannula although 99% and discussed with nursing staff about weaning FiO2 as tolerated. Patient continues on IV heparin for lower extremity DVT and hemoglobin is stable above 7. No further hematuria noted. Vascular surgery consulted for possible IVC filter placement as patient is a poor candidate for anticoagulation. Patient continues with some right upper extremity swelling and DVT was ruled out, difficult to exclude a thrombus in the cephalic vein where an IV was placed. Continue with supportive care and elevating that extremity. Patient with significant weakness recommend PT/OT therapy daily. Patient will be returning to [facility] once cleared by consultations. Will await vascular surgery evaluation. Patient to continue on breathing inhalational treatments along with antibiotics and IV steroids. Pulmonary audio visual secretary following. 07/30/2023 Patient is seen and evaluated this morning currently scheduled to undergo IVC filter placement as patient has been having drops in hemoglobin with no specific bleeding noted. Hematuria has resolved and was brief as patient continues with indwelling Gilmore catheter and urine is clear. Patient was initiated back on IV heparin for acute DVT in the left lower extremity although having complications with reduced hemoglobin, vascular was consulted for IVC filter. Patient is not a good candidate for anticoagulation. Hemoglobin was 6.1 today and will transfuse 2 units with Lasix in between and consult GI and appreciate input and recommendations. Patient denies any bleeding or difficulties with tolerating diet. Per nursing staff patient has had bowel movements that are brown with no blood noted, no dark melanotic stools noted. Patient is continued on antibiotics with pulmonary following as well congested weak cough likely chronic. Will obtain a chest x-ray. Review of systems: Constitutional: No reports of fatigue, fever, or chills Cardiovascular: No reports of chest pain or palpitations Respiratory: No reports of worsening shortness of breath, reports weak cough that is chronic GI: No reports of nausea, vomiting, or diarrhea : No reports of dysuria or retention, no further hematuria Neurovascular: reports of extreme generalized weakness and lower extremity pain with swelling especially the left leg when being moved as well as right upper arm discomfort All medications have been reviewed PHYSICAL EXAMINATION: Patient is lying in the bed., awake alert and oriented x 2, confused at times. Baseline. Currently on 4 L via nasal cannula, well-developed, thin built, elde rly appearing, ill-appearing HEENT: Normocephalic. Neck is supple. Pupils reactive. Nostrils clear. Oral cavity is moist. Neck reveals no JVD, carotid bruits, or thyromegaly. CHEST EXAMINATION: Trachea is central. Symmetrical expansion. Left basilar coarse sounds. Mild expiratory wheeze.. Crackles noted at the bases, bronchial congestion noted CARDIAC: S1, S2 are muffled ABDOMEN: Soft. Thin. Bowel sounds normal. No organomegaly. No abdominal bruits. Extremities: reveal no edema. No clubbing or cyanosis, bilateral lower extremity swelling worse on the left, foot drop noted on the left as well. Left hip surgical site has scabbing noted with no redness or drainage noted, healing well and approximated Neurologically awake, alert, oriented x 2-3. Diffusely weak Skin: No rash or skin lesions. Pale Psychiatric: Cooperative. Could not be assessed completely Musculoskeletal: No joint swelling or deformity. Assessment: Acute hypoxemic respiratory failure due to left lower lobe pneumonia and left sided small pleural effusion and COPD. Patient was requiring BiPAP on admission. Transitioned to nasal cannula, currently 4 L Acute on chronic anemia, acute blood loss secondary to anticoagulation and hematuria, no GI bleed noted Hematuria, possibly secondary to resumption of anticoagulation versus possible trauma as patient does occasionally pull at IVs and tubings. Resolved Sepsis secondary to pneumonia, bacterial, present on admission Acute left lower extremity DVT. Elevated D-dimer level. CT PE could not be done due to elevated creatinine level. Right upper extremity arm swelling, DVT ruled out, thrombus of the cephalic vein from an IV site Acute kidney injury likely prerenal with possible ATN. CKD stage III. Hypovolemic hyponatremia, secondary to poor oral intake Lactic acidosis 3.1 on admission, secondary to left lower lobe pneumonia, improved History of mechanical fall status post left hip cemented unipolar hemiarthroplasty on 07/05/2023 Recent admission with anemia requiring blood transfusion 1 unit PRBC. Hemoglobin is 6.1 today and will transfuse 2 units Paroxysmal atrial fibrillation, currently rate controlled currently on heparin Mild cardiomyopathy with ejection fraction 45 to 50%. EF improved to 55 to 60% as per recent echocardiogram on 07/05/2023 Coronary artery disease nonobstructive Hypertension Hyperlipidemia History of tobacco use History of EtOH abuse GI prophylaxis with PPI DVT prophylaxis, IV heparin on hold due to anemia No code Plan: Patient was maintained on BiPAP on admission and has transition to 5 L via nasal cannula. Current oxygen saturation is 99%. Discussed with nursing staff about weaning FiO2. Pulmonary following. Continue with DuoNebs, IV Solu-Medrol 60 mg every 6 hourly. Patient was given azithromycin and ceftriaxone in the ER. Currently on vancomycin and Zosyn as procalcitonin was elevated. Patient was started on heparin drip due to left lower extremity acute DVT. VQ scan was ordered due to elevated creatinine level to rule out PE. Per pulmonary no need for V/Q at this time. Follow-up chest x-ray showing stable pleural effusion with no plans of thoracentesis at this time. IV heparin was di scontinued and Eliquis was resumed. There is noted hematuria noted in the gilmore and will hold eliquis and vascular surgery was consulted and scheduled for IVC filter today. Heparin has been discontinued Patient is not a good candidate for anticoagulation given significant anemia and drop in hemoglobin along with recurrent frequent falls Hemoglobin was 6.1 today and will give 2 units along with Lasix in between each unit and will monitor closely and follow-up with repeat labs. Transfuse if 7 or less. Recommend PT/OT therapy evaluation, case management following as patient will be returning to ECF on discharge Continue with wound alf medications reviewed and resumed as appropriate Patient having occasional periods of confusion and will continue Seroquel as needed at night low-dose in the event patient becomes agitated. Encouraged opening the shades and blinds to the windows and possibly sitting up out of the bed more often and frequent reorientation. Patient is no code. Will need to discuss further with family regarding overall treatment plan GI consulted with concerns of anemia and appreciate input and recommendations. Patient will require insurance authorization for discharge to ECF Due to multiple complex medical issues, prognosis is guarded The impression and plan of care has been dictated by Akila Clemente, Nurse Practitioner as directed. Dr. Carrington MD I have performed a history and examination and MDM of this patient, discussed the same with the dictator, and agree with the dictator's assessment and plan as written ,documented as a scribe. Based on total visit time, I have performed more than 50% of the visit. Objective - Vital Signs Vital signs: Vital Signs Temp 97.4 F L 07/30/23 13:28 Pulse 87 07/30/23 13:28 Resp 20 07/30/23 13:28 BP 112/73 07/30/23 13:28 Pulse Ox 93 L 07/30/23 13:28 FiO2 40 07/23/23 02:57 Intake & Output 07/29/23 07/30/23 07/30/23 18:59 06:59 18:59 Intake Total 119.001 111.738 66.744 Output Total 351 Balance -231.999 111.738 66.744 Weight 103.5 kg 104 kg Intake: IV 50 Intake, IV Titration 119.001 111.738 16.744 Amount Heparin Sod,Pork in 0.45% 119.001 111.738 16.744 NaCl 25,000 unit In 0.45 % NaCl 1 250ml.bag @ 9.9 UNITS/KG/HR 9.999 mls/hr IV .Q24H [facility] Rx#: [id number] Output: Urine 350 Stool 1 Other: Voiding Method Indwelling Catheter Indwelling Catheter Indwelling Catheter # Bowel Movements 1 1 - Labs CBC & Chem 7: 07/30/23 10:39 07/30/23 10:39 Labs: Abnormal Lab Results - Last 24 Hours (Table) 07/29/23 07/29/23 07/30/23 Range/Units 12:33 18:38 02:03 RBC (4.30-5.90) m/uL Hgb (13.0-17.5) gm/dL Hct (39.0-53.0) % RDW (11.5-15.5) % Lymphocytes # (Manual) (1.0-4.8) k/uL Myelocytes # (Manual) (0) k/uL APTT 159.5 H* 150.2 H* (22.0-30.0) sec Creatinine 1.33 H (0.66-1.25) mg/dL 07/30/23 07/30/23 Range/Units 10:39 10:39 RBC 2.11 L (4.30-5.90) m/uL Hgb 6.1 L* D (13.0-17.5) gm/dL Hct 19.1 L* (39.0-53.0) % RDW 17.3 H (11.5-15.5) % Lymphocytes # (Manual) 0.59 L (1.0-4.8) k/uL Myelocytes # (Manual) 0.05 H (0) k/uL APTT 31.5 H (22.0-30.0) sec Creatinine (0.66-1.25) mg/dL
--- NOTE | 2023-07-31 08:02 | XR ---
EXAMINATION TYPE: XR chest 1V portable DATE OF EXAM: 07/31/2023 COMPARISON: 07/27/2023 INDICATION: Shortness of breath pneumonia TECHNIQUE: Single frontal view of the chest is obtained. FINDINGS: The heart size is normal. The pulmonary vasculature is normal. There is a small to moderate left pleural effusion. Bibasilar infiltrates are present. Correlate for atelectasis IMPRESSION: 1. Stable small to moderate left pleural effusion. 2. Stable left and developing right lower lobe infiltrate. Correlate for atelectasis or pneumonia.
--- NOTE | 2023-07-31 10:33 | P.PN ---
Subjective Progress Note Date: 07/31/23 Principal diagnosis: DVT, anemia and unable to tolerate anticoagulation Patient is seen and examined today as a follow-up. He is sitting up in bed and eating breakfast. He denies any pain in the groin. He underwent IVC filter placement per right femoral vein. Yesterday he had a drop in his hemoglobin again to 6.1 and received 2 units of blood. He has received a total of 3 units this admission. Today's labs are currently pending. Objective - Vital Signs Vital signs: Vital Signs Temp 84 F L 07/31/23 08:00 Pulse 71 07/31/23 08:00 Resp 20 07/31/23 08:00 BP 148/89 07/31/23 08:00 Pulse Ox 92 L 07/31/23 00:55 FiO2 40 07/23/23 02:57 Intake & Output 07/30/23 07/31/23 07/31/23 18:59 06:59 18:59 Intake Total 376.744 900 Output Total 400 1450 Balance -23.256 -550 Weight 99.5 kg Intake: IV 50 Intake, IV Titration 16.744 Amount Heparin Sod,Pork in 0.45% 16.744 NaCl 25,000 unit In 0.45 % NaCl 1 250ml.bag @ 9.9 UNITS/KG/HR 9.999 mls/hr IV .Q24H [facility] Rx#: [id number] Oral 590 Blood Product 310 310 Rc As-1 Unit 310 [id number] Rc As-1 Unit 310 [id number] Output: Urine 400 1450 Uretheral (Howard) 350 Other: Voiding Method Indwelling Catheter Indwelling Catheter # Voids 0 # Bowel Movements 1 1 - Exam General appearance: The patient is alert, oriented, appears in no acute distress. HET: Head is normocephalic and atraumatic. Pupils are equal and reactive. Neck: Supple. Abdomen: Soft, nontender, nondistended. Extremities: Normal skin color and turgor. Right groin access site with dressing clean dry and intact. No ecchymosis or hematoma noted. Bilateral lower extremity swelling. Soft Medi boots in place. Bilateral hands edematous. Right upper extremity with bruising. Neurological: No focal deficits. - Labs CBC & Chem 7: 07/30/23 10:39 07/30/23 10:39 Labs: Abnormal Lab Results - Last 24 Hours (Table) 07/30/23 07/30/23 07/30/23 Range/Units 10:39 10:39 12:01 RBC 2.11 L (4.30-5.90) m/uL Hgb 6.1 L* D (13.0-17.5) gm/dL Hct 19.1 L* (39.0-53.0) % RDW 17.3 H (11.5-15.5) % Lymphocytes # (Manual) 0.59 L (1.0-4.8) k/uL Myelocytes # (Manual) 0.05 H (0) k/uL APTT 31.5 H (22.0-30.0) sec Crossmatch See Detail Assessment and Plan Assessment: 1. Left lower extremity deep vein thrombosis, unable to tolerate anticoagulation status post IVC filter placement 2. Anemia 3. Nonocclusive thrombus right cephalic vein 4. Right upper extremity bruising 5. Coagulopathy on heparin drip 6. Atrial fibrillation 7. Recent left hip fracture s/p surgery on 07/05/2023 Plan: Heparin infusion has been discontinued. Patient is doing well status post IVC filter placement. He can follow-up with vascular surgery in 1 to 2 months. There is no further indication for any vascular surgical intervention. Thank you for this consultation, we will sign off at this time. The impression and plan of care has been dictated as directed. Dr. Neal I performed a history and examination of this patient, discussed the same with the dictator. I agree with the dictator's note ,documented as a scribe. Any additional findings or plans will be noted.
--- NOTE | 2023-07-31 11:05 | P.CONS ---
History of Present Illness - Reason for Consult Consult date: 07/31/23 Anemia, questionable GI bleed Requesting physician: Akila Clemente - Chief Complaint Shortness of breath, pneumonia - History of Present Illness This is a pleasant 88-year-old male with a history of atrial fibrillation who was on Eliquis previously, coronary artery disease hypertension hyperlipidemia and mild cardial myopathy who came in with shortness of breath and pneumonia. Patient had a recent fall last month and fractured his left hip and underwent surgery on 07/05/2023. He was started on Eliquis at that time and came in July 10 to with anemia and was transfused 1 unit of blood and discharged. He presented back on 07/21/2023 for shortness of breath and diagnosed with pneumonia. He had an elevated D-dimer on admission and had a venous duplex that reported a left lower extremity deep vein thrombosis chronic clot versus partial occluded thrombus. He was then started on IV heparin infusion. He had a drop in his hemoglobin to 6.8 requiring 1 unit of blood transfusion. Patient remains anemic concerns for acute blood loss anemia with hematuria noted during this admission but apparently also concern for possible GI source for blood loss. Yesterday he underwent IVC filter placement and anticoagulation has been discontinued at this time. Patient denies any blood in his stool or black stool. Denies any history of previous GI bleed. States he had a colonoscopy many years ago and it was normal. No history of peptic ulcer disease and not aware of any EGD. Denies any abdominal pain, nausea or vomiting. Denies any significant weight loss. Daniel braga's hemoglobin yesterday had dropped to 6.1 he has received a total of 3 units this admission. No current labs available. Review of Systems REVIEW OF SYSTEMS: CARDIOPULMONARY: No chest pain. He has chronic shortness of breath. Gastrointestinal: Abdominal or epigastric pain. No nausea or vomiting. No hematemesis, coffee-ground emesis. No rectal bleeding, or melena. GENITOURINARY: No dysuria. Gross hematuria reported per primary medical team. MUSCULOSKELETAL: Reports normal range of motion. Joint pain. SKIN: No rashes. No jaundice. ENDOCRINE: No chills, fevers. No excessive weight gain or loss. No polydipsia or polyuria. PSYCHIATRIC: Unremarkable. NEUROLOGY: No change in mental status. Denies dizziness, headache. ENT: Vision unremarkable. CONSTITUTIONAL: No recent weight loss. No fever, chills, night sweats. Past Medical History Past Medical History: Coronary Artery Disease (CAD), Hyperlipidemia, Hype rtension Additional Past Medical History / Comment(s): arthritis in back, cataracts History of Any Multi-Drug Resistant Organisms: MRSA Year Discovered:: 01/23/23 MDRO Source:: Back Past Surgical History: Heart Catheterization, Hernia Repair, Orthopedic Surgery, Tonsillectomy Additional Past Surgical History / Comment(s): colonoscopy, iban cataracts, wisdom teeth, left hip replacement Past Anesthesia/Blood Transfusion Reactions: No Reported Reaction Past Psychological History: No Psychological Hx Reported Smoking Status: Light tobacco smoker Past Alcohol Use History: Occasional Past Drug Use History: None Reported - Past Family History Father Family Medical History: Cancer Additional Family Medical History / Comment(s): ca of lymph nodes Medications and Allergies Home Medications Medication Instructions Recorded Confirmed Type Latanoprost Ophth [Xalatan 0.005%] 1 drop BOTH EYES HS 01/02/17 07/22/23 History Thiamine [Vitamin B-1] 100 mg PO DAILY #30 tab 11/27/21 07/22/23 Rx Famotidine [Pepcid] 20 mg PO DAILY 08/29/22 07/22/23 History Albuterol Inhaler [Ventolin Hfa 2 puff INHALATION RT-Q6H PRN 10/27/22 07/22/23 History Inhaler] Atorvastatin [Lipitor] 20 mg PO HS 01/21/23 07/22/23 History Magnesium Hydroxide [Milk of 2,400 mg PO DAILY PRN 01/21/23 07/22/23 History Magnesia] Sennosides [Senokot] 8.6 mg PO DAILY 07/03/23 07/22/23 History Ferrous Sulfate [Iron (65 MG 325 mg PO DAILY #30 tab 07/08/23 07/22/23 Rx Elemental)] Docusate [Colace] 100 mg PO BID 07/11/23 07/22/23 History Menthol [Icy Hot] 1 patch TRANSDERM BID 07/11/23 07/22/23 History Metoprolol Tartrate [Lopressor] 12.5 mg PO BID@0700,1900 07/11/23 07/22/23 History Pantoprazole [Protonix] 40 mg PO DAILY 07/11/23 07/22/23 History HYDROcodone/APAP 5-325MG [[place] 1 tab PO Q6HR PRN #6 tab 07/12/23 07/22/23 Rx 5-325] Acetaminophen [Tylenol 8 Hour] 650 mg PO Q6H PRN 07/22/23 07/22/23 History Doxycycline [Vibramycin] 100 mg PO BID@0700,1600 07/22/23 07/22/23 History Ipratropium-Albuterol Nebulize 3 ml INHALATION RT-TID 07/22/23 07/22/23 History [Duoneb 0.5 mg-3 mg/3 ml Soln] lisinopriL [Zestril] 2.5 mg PO DAILY@0700 07/22/23 07/22/23 History Allergies Allergy/AdvReac Type Severity Reaction Status Date / Time No Known Allergies Allergy Verified 07/22/23 11:45 Physical Exam Vitals: Vital Signs Temp Pulse Pulse Resp BP BP Pulse Ox 07/31/23 08:00 84 F L 71 20 148/89 07/31/23 00:55 97.4 F L 74 18 148/85 92 L 07/30/23 23:16 97.4 F L 72 16 125/71 97 07/30/23 22:56 98.1 F 72 18 122/83 96 07/30/23 22:48 97.5 F L 63 16 113/68 91 L 07/30/23 20:00 97.8 F 94 24 147/73 98 07/30/23 18:49 97.6 F 72 18 138/92 98 07/30/23 16:31 97.3 F L 53 L 17 113/72 96 07/30/23 16:11 97.8 F 62 18 105/52 96 07/30/23 16:02 97.6 F 59 L 16 116/66 07/30/23 13:28 97.4 F L 87 20 112/73 93 L Intake and Output 07/30/23 07/31/23 07/31/23 22:59 06:59 14:59 Intake Total 310 900 Output Total 750 1100 Balance -440 -200 Intake: Oral 590 Blood Product 310 310 Rc As-1 Unit 310 [id number] Rc As-1 Unit 0 310 [id number] Output: Urine 750 1100 Uretheral (Howard) 350 Other: Voiding Method Indwelling Catheter # Voids 0 # Bowel Movements 1 Weight 99.5 kg General appearance: The patient is alert, oriented, appears in no acute distress. HET: Head is normocephalic and atraumatic. Conjunctiva pink. Sclera anicteric. Neck: Supple without lymphadenopathy. Trachea midline. Heart: Regular. Lungs: Equal expansion, normal respiratory effort. Abdomen: Soft, nontender, nondistended with bowel sounds. No guarding or rigidity. Skin: No rashes. No jaundice. Right upper extremity with ecchymosis. Extremities: Bilateral hands with edema. Lower extremity edema. Neurological: No focal deficits. Alert and oriented x3. Results CBC & Chem 7: 07/30/23 10:39 07/30/23 10:39 Labs: Abnormal Lab Results - Last 24 Hours (Table) 07/30/23 07/30/23 07/30/23 Range/Units 10:39 10:39 12:01 RBC 2.11 L (4.30-5.90) m/uL Hgb 6.1 L* D (13.0-17.5) gm/dL Hct 19.1 L* (39.0-53.0) % RDW 17.3 H (11.5-15.5) % Lymphocytes # (Manual) 0.59 L (1.0-4.8) k/uL Myelocytes # (Manual) 0.05 H (0) k/uL APTT 31.5 H (22.0-30.0) sec Crossmatch See Detail Assessment and Plan Assessment: 1. Left lower extremity deep vein thrombosis, previous anticoagulation with heparin infusion. Status post IVC filter placement 2. Normocytic normochromic anemia 3. Reported gross hematuria 4. Right upper extremity bruising 6. Atrial fibrillation 7. Recent left hip fracture s/p surgery on 07/05/2023 (1) Normocytic normochromic anemia Narrative/Plan: 88-year-old male with normocytic normochromic anemia with multiple comorbidities presented to the emergency department with shortness of breath found to have pneumonia. Had recent fall and left hip fracture status post surgery. He was noted to have elevated D-dimer and a positive left lower extremity DVT. He was started on a heparin drip. He has required 3 units of blood this admission. Was reported that he had gross hematuria however patient has Howard catheter and does not appear to have any blood in his urine at this time. Questionable if source of anemia is from GI tract. Gastroenterology consulted. Patient has had no previous iron studies done. Those will be ordered. No previous history of upper endoscopy. Remote colonoscopy. Patient has no signs or symptoms of GI bleed. Anticoagulation has been discontinued at this time as patient has IVC filter placed. Will trend hemoglobin. Further recommendations forthcoming based on clinical course. May need to consider possible upper endoscopy however we will wait on iron studies. Current Visit: Yes Status: Acute Code(s): D64.9 - ANEMIA, UNSPECIFIED SNOMED Code(s): 66502121 (2) Atrial fibrillation Narrative/Plan: Was not on anticoagulation Current Visit: Yes Status: Acute Code(s): I48.91 - UNSPECIFIED ATRIAL FIBRILLATION SNOMED Code(s): 62504627 (3) Pneumonia Current Visit: Yes Status: Acute Code(s): J18.9 - PNEUMONIA, UNSPECIFIED ORGANISM SNOMED Code(s): 707938398 (4) Gross hematuria Current Visit: Yes Status: Acute Code(s): R31.0 - GROSS HEMATURIA SNOMED Code(s): 678992526 (5) Coronary artery disease Current Visit: No Status: Acute Code(s): I25.10 - ATHSCL HEART DISEASE OF [place] CORONARY ARTERY W/O ANG PCTRS SNOMED Code(s): 50022995 (6) Fall Current Visit: No Status: Acute Code(s): W19.XXXA - UNSPECIFIED FALL, INITIAL ENCOUNTER SNOMED Code(s): 3031813 (7) Hip fracture, left Narrative/Plan: Status post surgery Current Visit: No Status: Acute Priority: Medium Code(s): S72.002A - FRACTURE OF UNSP PART OF NECK OF LEFT FEMUR, INIT SNOMED Code(s): 965210895 (8) Left leg DVT Narrative/Plan: Left lower extremity deep vein thrombosis, previous anticoagulation with heparin infusion. Status post IVC filter placement Current Visit: Yes Status: Acute Code(s): I82.402 - ACUTE EMBOLISM AND THOMBOS UNSP DEEP VEINS OF L LOW EXTREM SNOMED Code(s): 223240731 Plan: 1. Continue symptomatic and supportive care 2. Avoid anticoagulation 3. Iron studies, anemia profile ordered 4. Daily CBC, transfuse for hemoglobin less than 7 5. Diet as tolerated 6. Further recommendations forthcoming from gastroenterology 7. Rest of medical management per primary medical team Thank you for this consultation, we will continue to follow. Dr. Prakash Santizo I agree with the dictator's note, documented as a scribe by Genoveva Choi.
[2023-07-31 11:50] LABS: HCT 19.4 % (39.6-50.0); HGB 6.1 g/dL (13.0-17.0); MCH 26.8 pg (27.0-32.0); MCHC 31.4 g/dL (32.0-37.0); MCV 85.1 FL (80.0-97.0); Mean Platelet Volume 11.5 FL (9.5-12.2); NRBC Per 100 WBC 0 X 10*3/uL (0.00-0.01); Platelet Count 111 X 10*3/uL (140-440); RBC 2.28 X 10*6/uL (4.40-5.60); RDW 17.2 % (11.5-14.5)
[2023-07-31 11:57] LABS: Basophils # (A) 0 X 10*3/uL (0.00-0.10); Basophils % (A) 0 %; Eosinophils # (A) 0 X 10*3/uL (0.04-0.35); Eosinophils % (A) 0 %; Lymphocytes # (A) 1.07 X 10*3/uL (0.90-5.00); Lymphocytes % (A) 16.2 %; Monocytes # (A) 1.22 X 10*3/uL (0.20-1.00); Monocytes % (A) 18.5 %; Neutrophils # (A) 4.19 X 10*3/uL (1.80-7.70); Neutrophils % (A) 63.5 %; RBC Morphology Normal (Normal)
[2023-07-31 12:58] LABS: Anisocytosis Slight; HCT 24.7 % (39.0-53.0); Hypochromasia Moderate; MCHC 31.8 g/dL (31.0-37.0); Mean Platelet Volume 9.2; Platelet Count 130 k/uL (150-450); Poikilocytosis Slight; RBC 2.81 m/uL (4.30-5.90); WBC 9.2 k/uL (3.8-10.6)
[2023-07-31 13:15] LABS: HGB 7.9 gm/dL (13.0-17.5)
--- NOTE | 2023-07-31 13:17 | P.PN ---
Subjective Progress Note Date: 07/31/23 Patient is an 88-year-old male with past medical history significant for hypertension, hyperlipidemia, paroxysmal atrial fibrillation previously anticoagulated on Eliquis, frequent falls. Patient recently fell from his wheelchair and had sustained a left hip fracture. He underwent a left hip cemented unipolar hemiarthroplasty on 07/05/2023. He was then discharged back to his extended care facility. Patient was sent back in from his [facility] yesterday for evaluation of acute dyspnea. He was reportedly diagnosed with pneumonia earlier in the day, and started on doxycycline. When EMS arrived to the [facility], he was hypoxic with an SpO2 of less than 80%. He was also tachypneic and tachycardic and in respiratory distress. He was transferred to our facility on BiPAP. He is currently sitting up in bed, in some respiratory distress. On BiPAP with settings 12/6 and FiO2 of 100%. Respiratory rate is in the mid 30s and tidal volumes are greater than 800. He is unable to provide any information at this time. There is accessory muscle use. ABG done on above-mentioned settings showed a PaO2 of 183, pCO2 of 39, pH of 7.35. Chest x-ray shows a left lower lobe infiltrate and or atelectasis and small left-sided pleural effusion, possibly parapneumonic. CBC on arrival: WBC count of 30.7, hemoglobin 8.9, hematocrit 27.8, platelets 708. CMP on arrival: Sodium 130, potassium 4.9, chloride 97, serum bicarb 19, BUN 59, creatinine 2.09, glucose 106. Normal saline infusing at 130 MLS per hour. LFTs mildly elevated. Troponin 0.027. NT proBNP 5700. There is a component of acute on chronic kidney injury. Negative for influenza, RSV, COVID. Patient's D-dimer was elevated. For this reason a venous Doppler of the lower extremities was ordered, and the patient was found to have a left lower extremity DVT. Patient was previously anticoagulated on Eliquis, however, this has been stopped after his most recent fall and hip fracture. Left hip incision is approximated and clean and dry. No drainage. Hemoglobin is stable at 8.9 g/dL. Patient denies any bright red blood, melanotic stools, or hematemesis. Patient's respiratory status is currently labile, will continue to closely monitor. Patient may need transfer to the intensive care unit. In the emergency department and I had a lengthy discussion with the . The patient is currently on a BiPAP and is tolerating the BiPAP reasonably well with generation of adequate tidal volume above 500. No significant tachypnea. The patient is on a pressure setting of 12/6 and a meters of water and FiO2 has been weaned down.The white cell count from today is 29 with a hemoglobin of 7.6 and a platelet count of 527. Blood gases show a pH of 7.35 with a pCO2 of 39 and pO2 of 183 and this was on FiO2 of 100%. Viral screen has been negative and the procalcitonin level is at 4.2. BUN is at 69 with a creatinine of 2.09. Cultures were sent and the results are still pending for now. The chest x-ray showed a new area of consolidation of the left lower lobe in addition to a small left-sided pleural effusion. Ultrasound of the chest was also ordered and the results were consistent with a small left-sided pleural effusion with a 4.2 cm pocket. 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 Noted the patient was on anticoagulation with Eliquis in the past and this anticoagulation was discontinued because of his frequent falls. Noted the procalcitonin level is elevated at 4.2 On today's evaluation of 07/23/2023, seen the patient for a follow-up. The patient got moved out of the emergency department and the patient is currently on the medical floor. He was taken off the BiPAP this morning and the patient is currently on 2 L of O2 with a pulse ox of 98%. Alert awake and communicating. The white cell count is dropped down to 17.4 with a hemoglobin of 8.2 and a platelet count of 579. Hemodynamically stable. There is also interval improvement in the creatinine which is down to 1.43 with a BUN of 61. Sodium levels at 134. The patient remains on a combination of Zosyn and vancomycin. Remains on bronchodilators. Remains on IV Solu-Medrol 60 mg every 6 hours. The patient is also on IV heparin. PTT is therapeutic at this point in time. No evidence of any bleeding. Awake and alert and communicating. On today's evaluation of 07/24/2023, the patient is being seen for a follow-up. Clinically stable and the patient is currently on liters of oxygen by nasal cannula with a pulse ox of 94%. Repeat chest x-ray was done today and it shows some increase in the left lower lobe pleural effusion. There is also some infiltration/atelectasis. However clinically, the patient is stable. The patient is currently off the BiPAP. He has developed a small left-sided pleural effusion, likely parapneumonic in nature. Ultrasound of the chest was done yesterday showed a 4.2 cm pocket in the left lung. The WBC count is at 10.1 whi ch is improved with a hemoglobin of 7.7 slightly lower compared to yesterday with a platelet count of 537. Rest of the electrolytes are still pending. The patient remains on IV heparin. Remains on Zosyn and vancomycin coverage. No significant tachycardia. The patient is on DuoNeb updrafts. The patient on IV Solu-Medrol. The patient on Zosyn and vancomycin. The patient is on metoprolol 12.5 mg p.o. twice a day. On today's evaluation on 07/25/2023, the patient continues to improve. The white cell count is down to 7.8. The patient remains on 3 L of oxygen by nasal cannula. No significant respite distress. Repeat chest x-ray was done today and shows a stable left-sided pleural effusion that has not changed in size and the patient also has some stable infiltration of the left lung base consistent with pneumonia but small parapneumonic effusion. Hemoglobin is currently down to 6.6. The patient will be given a unit of packed RBC accordingly. Rest of the electrolytes show a creatinine of 1.33 with a BUN of 56 and a sodium levels at 138 with a potassium level of 4.1. The patient remains on IV heparin. He does have a DVT of the left lower extremity. No evidence of any GI bleeding at this point in time while being on IV heparin. On today's evaluation on 07/26/2023, the patient is being seen for a follow-up. The patient was given a unit of packed RBC yesterday and the hemoglobin is currently at 7.4. He is on oxygen 3 L with a pulse ox of 92%. He is lethargic and weak. Nevertheless denies having any significant shortness of breath. No chest pain. Remains on Zosyn and vancomycin. Nasal screen for MRSA was positive. Possibility of MRSA pneumonia cannot be completely excluded. The patient also developed a small parapneumonic effusion not amenable for thoracen tesis. He is a DNR/DNI CODE STATUS. Remains on bronchodilators. Remains on steroids. In addition, the patient is experiencing some hematuria at baseline and anticoagulation was stopped. Based on his high risk for anticoagulation and previous history of falls and concern for bleed, anticoagulation was placed on hold and vascular surgery was consulted for IVC filter placement. On today's evaluation, the patient is essentially unchanged remains on 3 L of oxygen by nasal cannula with a pulse ox of 97%. Chest x-ray was repeated this morning and the patient has an unchanged left-sided pleural effusion and left lower lobe consolidation. Remains on Zosyn and vancomycin. Labs from today shows a white cell count of 8 with a hemoglobin of 8 and a platelet count of 329. Electrolytes are within normal limits from yesterday. Creatinine is down to 1.2. No active hematuria and patient will be placed back on IV heparin pending vascular surgery consult 07/28/2023, patient is being seen for a follow-up. The patient is currently on oxygen at 4 L. Calm and comfortable. Noted frustrated. He is weak and quite debilitated at this point in time. He remains on Zosyn and vancomycin. He remains on IV heparin. No evidence of any hematuria. Howard catheter is in place. Hemoglobin is at 7.6. BUN is 53 with creatinine 1.24 levels at 139. Limited congested cough. No significant sputum production. He did encounter some swelling l upper extremity and a Doppler showed no evidence of any DVT in the right upper extremity. Nonocclusive thrombus was seen within the right cephalic vein. The patient is seen today July 29, 2023 in follow-up on the regular medical floor. He is currently sitting up in bed. Awake and alert in no acute distress. He is maintaining good O2 saturations in the upper 90s on 5 L/min per nasal cannula. He is afebrile. Hemodynamically stable. He remains on a heparin drip. Continued on bronchodilators and steroids. Antibiotics in the form of vancomycin and Zosyn. The patient is seen today July 30, 2023 in follow-up on the regular medical floor. He is awake and alert in no acute distress. He is maintaining O2 saturations in the 90s on 5 L/min per nasal cannula. White count 4.5. Hemoglobin 6.1. Platelets 173. Creatinine 1.24. He remains on a heparin drip. The plan is for IVC filter placement today. Packed red blood cell transfusion has been ordered. Remains on vancomycin and Zosyn. Continued on Flovent, albuterol, Spiriva. Remains on IV Solu-Medrol. The patient is seen today July 31, 2023 in follow-up on the regular medical floor. He is sitting up in bed. Awake and alert in no acute distress. Continuing to maintain O2 saturations in the 90s on 5 L/min per nasal cannula. He has been afebrile. Hemodynamically stable. He did go for IVC filter placement yesterday. Groin site is stable. Blood and sputum cultures revealed no growth. White count 6.6. Hemoglobin 6.1. Platelets 111. He is status post 3 units of packed red blood cells this admission. He remains on Serevent, Flovent, Spiriva. Remains on IV Solu-Medrol. Remains on antibiotics in the form of vancomycin and Zosyn. Objective - Vital Signs Vital signs: Vital Signs Temp 84 F L 07/31/23 08:00 Pulse 71 07/31/23 08:40 Resp 20 07/31/23 08:40 BP 148/89 07/31/23 08:00 Pulse Ox 92 L 07/31/23 00:55 FiO2 40 07/23/23 02:57 Intake & Output 07/30/23 07/31/23 07/31/23 18:59 06:59 18:59 Intake Total 376.744 900 110 Output Total 400 1450 601 Balance -23.256 -550 -491 Weight 99.5 kg Intake: IV 50 Intake, IV Titration 16.744 Amount Heparin Sod,Pork in 0.45% 16.744 NaCl 25,000 unit In 0.45 % NaCl 1 250ml.bag @ 9.9 UNITS/KG/HR 9.999 mls/hr IV .Q24H [facility] Rx#: [id number] Oral 590 110 Blood Product 310 310 Rc As-1 Unit 310 [id number] Rc As-1 Unit 310 [id number] Output: Urine 400 1450 600 Uretheral (Howard) 350 Stool 1 Other: Voiding Method Indwelling Catheter Indwelling Catheter Indwelling Catheter # Voids 0 # Bowel Movements 1 1 1 - Exam GENERAL EXAM: Alert, frail 88-year-old male, on 5 L nasal cannula, resting fairly comfortably in bed, in no apparent distress. HEAD: Normocephalic. EYES: Normal reaction of pupils, equal size. NOSE: Clear with pink turbinates. THROAT: No erythema or exudates. NECK: No masses, no JVD. CHEST: No chest wall deformity. LUNGS: Equal air entry with crackles in the left lung base. CVS: S1 and S2 normal with no audible murmur, regular rhythm. ABDOMEN: No hepatosplenomegaly, normal bowel sounds, no guarding or rigidity. SPINE: No scoliosis or deformity SKIN: No rashes CENTRAL NERVOUS SYSTEM: No focal deficits, tone is normal in all 4 extremities. EXTREMITIES: Multiple areas of ecchymosis. Left hip incision clean dry well- approximated there is no peripheral edema. No clubbing, no cyanosis. Peripheral pulses are intact. - Labs CBC & Chem 7: 07/31/23 07:59 07/30/23 10:39 Labs: Abnormal Lab Results - Last 24 Hours (Table) 07/30/23 07/31/23 Range/Units 12:01 07:59 RBC 2.28 L (4.40-5.60) X 10*6/uL Hgb 6.1 A* (13.0-17.0) g/dL Hct 19.4 A* (39.6-50.0) % MCH 26.8 L (27.0-32.0) pg MCHC 31.4 L (32.0-37.0) g/dL RDW 17.2 H (11.5-14.5) % Plt Count 111 L (140-440) X 10*3/uL Immature Gran # 0.12 H (0.00-0.04) X 10*3/uL Monocytes # 1.22 H (0.20-1.00) X 10*3/uL Eosinophils # 0 L (0.04-0.35) X 10*3/uL Crossmatch See Detail Microbiology - Last 24 Hours (Table) 07/27/23 13:55 Gram Stain - Final Sputum Sputum Culture - Final Assessment and Plan Assessment: Acute hypoxemic respiratory failure, possibly multifactorial, secondary to acute COPD exacerbation and possible left-sided community-acquired pneumonia and left- sided pleural effusion, possibly parapneumonic. Possibility of a hospital-a cquired pathogen cannot be completely ruled out. Patient is currently on 5 L of oxygen nasal cannula and his repeat chest x-ray shows a stable left lung infiltrate and stable left-sided pleural effusion which is essentially small and ultrasound pocket was approximately 4.2 cm in size. Acute left lower lobe pneumonia, most likely bacterial infection and the patient procalcitonin level is also elevated. Patient has leukocytosis. Consider bacterial infection the patient will be covered with broad-spectrum antibiotics for now. 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 Note that the patient was off his anticoagulants due to his frequent falls and anemia. IVC filter placed July 30, 2023 Frequent falls, with recent left hip femoral neck fracture, status/post left hip cemented unipolar hemiarthroplasty on 07/05/2023 History of fall with multiple left-sided rib fractures and pulmonary contusion History of paroxysmal atrial fibrillation, Eliquis has been stopped Acute on chronic kidney disease, creatinine is improved compared to yesterday the patient is recovering from his acute kidney injury Acute on top of chronic anemia with a drop in hemoglobin again at 6.1 on 07/31/2023, status post 3 units of packed RBCs this admission History of thoracic level wound/cellulitis, isolated organism at that time was M RSA History of hyperlipidemia History of hypertension History of former tobacco dependence Chronic obstructive pulmonary disease History of alcoholism Hematuria Poor overall functional performance based on the above-mentioned multiple comorbidities Plan: The patient was seen and evaluated Medications and labs reviewed Hemoglobin again down to 6.1, workup continues IVC filter placed yesterday Continue vancomycin and Zosyn 1 more day Continue bronchodilators and steroids Titrate down the FiO2 as tolerated We will continue to follow I have personally seen and examined the patient, performed the documentation and the assessment and plan as written. Number of minutes spent on the visit: 10.
[2023-07-31 13:51] LABS: % Iron Saturation 83.11 (15.00-50.00)
[2023-07-31] MEDS: FUROSEMIDE 10 MG/ML 4 ML VIAL IV SCH (14:05)
[2023-07-31 14:06] LABS: Magnesium 1.2 mg/dL (1.5-2.4)
[2023-07-31 14:08] LABS: ALT 14 U/L (10-49); AST 13 U/L (14-35); Albumin/Globulin Ratio 1.33 Ratio (1.60-3.17); Alkaline Phosphatase 54 U/L (41-126); Blood Urea Nitrogen 39.8 mg/dL (9.0-27.0); Calcium 5.6 mg/dL (8.7-10.3); Carbon Dioxide 14.6 mmol/L (21.6-31.8); Chloride 115 mmol/L (96-109); Globulin 1.5 g/dL (1.6-3.3); Glucose 115 mg/dL (70-110); Potassium 2.5 mmol/L (3.5-5.5); Sodium 142 mmol/L (135-145); Total Protein 3.5 g/dL (6.2-8.2)
[2023-07-31 14:30] LABS: Band Neutrophils % 1 %; Lymphocytes # (M) 0.18 k/uL (1.0-4.8); Monocytes # (M) 0.74 k/uL (0-1.0); Neutrophils % (M) 89 %; Nucleated Red Blood Cells 0 /100 WBC (0-0); Total Cells Counted 100
[2023-07-31 14:44] LABS: African American GFR (CKD) 60 (>60 ml/min/1.73 sqM); Anion Gap 7 mmol/L; Blood Urea Nitrogen 52 mg/dL (9-20); Calcium 7.1 mg/dL (8.4-10.2); Carbon Dioxide 22 mmol/L (22-30); Chloride 107 mmol/L (98-107); Glucose 164 mg/dL (74-99); Non-African American GFR(CKD) 52 (>60 ml/min/1.73 sqM); Potassium 3.1 mmol/L (3.5-5.1); Sodium 136 mmol/L (137-145)
[2023-07-31 14:53] LABS: NT-Pro-B-Type Natriuretic Pept 13800 pg/mL
[2023-07-31] MEDS ORDERED: Potassium Replacement Protocol 1 EACH MISC MISCELLANE PRN (15:18)
[2023-07-31] MEDS ORDERED: Magnesium Replacement Protocol 1 EACH MISC MISCELLANE PRN (15:18)
[2023-07-31] MEDS: MAGNESIUM SULFATE-D5W PMX 1 GM in DEXTROSE/WATER 1 100ML.BAG IVPB SCH (16:24)
[2023-07-31] MEDS: POTASSIUM CHLORIDE ER 20 MEQ TAB.ER PO SCH ×2 (16:25→20:26)
[2023-07-31 23:56] LABS: Anisocytosis Slight; HCT 26.1 % (39.0-53.0); HGB 8.4 gm/dL (13.0-17.5); Hypochromasia Slight; MCHC 32.1 g/dL (31.0-37.0); MCV 87.3 fL (80.0-100.0); Mean Platelet Volume 9.4; Platelet Count 160 k/uL (150-450); Poikilocytosis Slight; RBC 2.98 m/uL (4.30-5.90); RDW 17.1 % (11.5-15.5); WBC 10.1 k/uL (3.8-10.6)
[2023-08-01 01:41] LABS: Lymphocytes # (M) 0.51 k/uL (1.0-4.8); Monocytes # (M) 0.71 k/uL (0-1.0); Neutrophils # (M) 8.89 k/uL (1.3-7.7); Neutrophils % (M) 88 %; Nucleated Red Blood Cells 0 /100 WBC (0-0); Total Cells Counted 100
[2023-08-01 01:47] LABS: Hypersegmented Neutrophils Present
[2023-08-01 01:56] LABS: Crenated RBC Present; Ovalocytes Present
--- NOTE | 2023-08-01 05:39 | P.PN ---
Subjective Progress Note Date: 07/31/23 Patient is a 88-year-old male with a past medical history of hypertension, hyperlipidemia, paroxysmal atrial fibrillation coronary artery disease nonobstructive, mild cardiomyopathy ejection fraction 45-50 %, history of right tobacco smoker and left hip hemiarthroplasty on 07/05/2023 due to mechanical fa ll. Patient presented from nursing facility due to worsening shortness of breath/dyspnea. Patient was diagnosed with pneumonia and was started on doxycycline. He was placed on oxygen at 4 L via nasal cannula and EMS was called due to hypoxia with pulse ox down to 80% and patient was tachycardic and tachypneic. Patient was placed on BiPAP by EMS and was transferred to ER. Otherwise patient denies any complaints of chest pain. Cough with occasional sputum production. Tmax 101.0 on admission. Patient was recently admitted to due to acute blood loss anemia from 07/11/2023 to 07/12/2023. requiring 1 unit PRBC transfusion. Eliquis was held and was [facility]. Chest x-ray showed chronic parenchymal changes with new small left pleural effusion and left lower lobe acute infiltrates/atelectasis. EKG showed sinus tachycardia with possible left atrial enlargement. Lower extremity venous duplex showed suboptimal study. Long segment left lower extremity DVT is present. Findings reflect chronic clot or partially occlusive thrombus. Correlate clinically. Mild to moderate diffuse subcutaneous edema is seen on images obtained. Laboratory data showed WBC 13.7 hemoglobin 8.9 and platelets 708, D-dimer 4.11 ABG showed pH 7.35 pCO2 39, pO2 183 Sodium 130 potassium 4.9 chloride 97 bicarb is 19 BUN 59 and creatinine 2.09 and blood sugar 106 and lactic acid 3.1 total bilirubin 3.5 and alk phos 268, proBNP 5700, troponin 0.027 and albumin 2.8 Influenza A, B, RSV and COVID-19 PCR not detected. 07/23/2023 Patient is seen and evaluated in follow-up. Patient was continued on BiPAP and is currently maintaining oxygen saturations above 90% on 3 L. Patient continues on IV heparin drip with left lower extremity DVT. VQ scan was ordered as jean t was unable to have CT of the chest for PE evaluation as kidney functions are elevated. Will hold on VQ scan for now as patient unable to tolerate lying flat. Continue IV heparin and will likely need to transition back to Eliquis. 07/24/2023 Patient is seen and evaluated in follow-up today with pulmonary following. Patient continues on 3 L via nasal cannula and has been off of the BiPAP. Fol low-up chest x-ray today shows increasing left lower lobe pleural effusion with associated atelectasis and/or infiltrate. Strongly encourage incentive spirometer although patient needs much encouragement as he is extremely weak and confused at times. Patient continues on IV heparin and will for now as there will be a follow-up chest x-ray in the a.m. and may require a thoracentesis with pulmonary following closely. Will discuss with pulmonary in regards to transitioning to Eliquis or if patient is appropriate for any further anticoagulation. Patient is afebrile with no reported chest pain or worsening shortness of breath. Patient is continued on IV steroids along with antibiotics and DuoNeb breathing treatments. Encouraged oral intake and recommend aspiration precautions with head of the bed elevated 45 degrees at all times. 07/25/2023 Patient is seen this morning currently asleep although arousable. Patient maintained on 3 L via nasal cannula with pulmonary following. Follow-up chest x-ray shows stable effusion and pulmonary reporting no plans for thoracentesis at this time. Patient was continued on IV heparin although will transition to oral Eliquis and monitor for any bleeding. There are no active signs of bleeding at this time although hemoglobin was noted to be 6.6 today. Will transfuse 1 unit of PRBC follow-up on repeat labs. Patient continues on antibiotics sided pneumonia. Patient is afebrile and denies any chest pain or palpitations. Patient has a congested cough and difficulty expectorating. Encouraged incentive spirometer use and sitting up more often. Continue with DuoNeb treatments at this time. 07/26/2023 Patient is seen and evaluated in follow-up status post 1 unit of PRBC. Hemoglobin is 7.4 today with no active bleeding noted. Patient continues on DuoNeb treatments and will continue on antibiotics with pulmonary following closely. 07/27/2023 Patient is currently lying in the bed. Awake alert. Still having shortness of breath and oxygen requirement at 3 L via nasal cannula. Patient is on antibiotics in the form of vancomycin and Zosyn. Nasal swab cultures positive for MRSA. Patient is also on IV Solu-Medrol 60 mg every 6 hourly and DuoNebs. Patient was started back on anticoagulation with heparin drip. Vascular surgery was consulted. DVT. Chest x-ray showed unchanged left pleural effusion with associated atelectasis or infiltrate. Laboratory data showed WBC 8.0 hemoglobin 8.1 and platelets 288 INR 1.3. FOBT negative. 07/28/2023 Patient is lying in the bed. Awake alert but lethargic and weak. And currently requiring 4 L oxygen via nasal cannula. Currently on heparin drip due to lower extremity DVT and also on IV antibiotics. Hemoglobin is fairly stable at 7.6. No hematuria noted. Patient is also being continued on IV Solu-Medrol and DuoNebs. Pulmonary is on board. Vascular surgery was consulted. Patient does have significant right upper extremity swelling with possible extravasation of the IV line. Duplex scan was ordered to rule DVT. Laboratory showed WBC 6.8 hemoglobin 7.6 and platelets 265 Sodium 139 potassium 3.5 chloride 110 bicarb is 23 BUN 53 and creatinine 1.24 and blood sugar 166. Calcium 8.0. 07/29/2023 Patient is seen in follow-up today with multiple medical consultations hilario bee. Patient is continued on 5 L via nasal cannula although 99% and discussed with nursing staff about weaning FiO2 as tolerated. Patient continues on IV heparin for lower extremity DVT and hemoglobin is stable above 7. No further hematuria noted. Vascular surgery consulted for possible IVC filter placement as patient is a poor candidate for anticoagulation. Patient continues with some right upper extremity swelling and DVT was ruled out, difficult to exclude a thrombus in the cephalic vein where an IV was placed. Continue with supportive care and elevating that extremity. Patient with significant weakness recommend PT/OT therapy daily. Patient will be returning to [facility] once cleared by consultations. Will await vascular surgery evaluation. Patient to continue on breathing inhalational treatments along with antibiotics and IV steroids. Pulmonary x ray service technician following. 07/30/2023 Patient is seen and evaluated this morning currently scheduled to undergo IVC filter placement as patient has been having drops in hemoglobin with no specific bleeding noted. Hematuria has resolved and was brief as patient continues with indwelling Gilmore catheter and urine is clear. Patient was initiated back on IV heparin for acute DVT in the left lower extremity although having complications with reduced hemoglobin, vascular was consulted for IVC filter. Patient is not a good candidate for anticoagulation. Hemoglobin was 6.1 today and will transfuse 2 units with Lasix in between and consult GI and appreciate input and recommendations. Patient denies any bleeding or difficulties with tolerating diet. Per nursing staff patient has had bowel movements that are brown with no blood noted, no dark melanotic stools noted. Patient is continued on antibiotics with pulmonary following as well congested weak cough likely chronic. Will obtain a chest x-ray. 07/31/2023 Patient is seen in follow-up with multiple medical consultations following his IVC filter placement. Patient had significant electrolyte and hemoglobin abnormalities this morning and awaiting repeat labs as patient received 2 units yesterday and hemoglobin was noted to be 6.1 again today. Repeat labs ordered and pending. Patient with critically low potassium and magnesium also awaiting repeat and will replace per protocol. Patient denies any bleeding or pain. Patient is maintained on antibiotics with pulmonary following with concerns of pneumonia on admission. Patient tolerating diet and denies any nausea or vomiting. GI has been consulted with concerns of possible GI bleed. Cardiology will be consulted as well for CHF. Will initiate low-dose Lasix and follow-up on repeat labs in the a.m. Review of systems: Constitutional: No reports of fatigue, fever, or chills Cardiovascular: No reports of chest pain or palpitations Respiratory: No reports of worsening shortness of breath, reports weak cough that is chronic GI: No reports of nausea, vomiting, or diarrhea : No reports of dysuria or retention, no further hematuria Neurovascular: reports of extreme generalized weakness All medications have been reviewed PHYSICAL EXAMINATION: Patient is lying in the bed., awake alert and oriented x 2, confused at times. Baseline. Currently on 4 L via nasal cannula, well-developed, thin built, e lderly appearing, ill-appearing HEENT: Normocephalic. Neck is supple. Pupils reactive. Nostrils clear. Oral cavity is moist. Neck reveals no JVD, carotid bruits, or thyromegaly. CHEST EXAMINATION: Trachea is central. Symmetrical expansion. Left basilar coarse sounds. Mild expiratory wheeze.. Crackles noted at the bases, bronchial congestion noted CARDIAC: S1, S2 are muffled ABDOMEN: Soft. Thin. Bowel sounds normal. No organomegaly. No abdominal bruits. Extremities: reveal no edema. No clubbing or cyanosis, bilateral lower extremity swelling worse on the left, foot drop noted on the left as well. Left hip surgical site has scabbing noted with no redness or drainage noted, healing well and approximated Neurologically awake, alert, oriented x 2-3. Diffusely weak Skin: No rash or skin lesions. Pale Psychiatric: Cooperative. Could not be assessed completely Musculoskeletal: No joint swelling or deformity. Assessment: Acute hypoxemic respiratory failure due to left lower lobe pneumonia and left sided small pleural effusion and COPD. Patient was requiring BiPAP on admission. Transitioned to nasal cannula, currently 4 L Acute on chronic anemia, acute blood loss secondary to anticoagulation and hematuria Hematuria, possibly secondary to resumption of anticoagulation versus possible trauma as patient does occasionally pull at IVs and tubings. Resolved Sepsis secondary to pneumonia, bacterial, present on admission Acute left lower extremity DVT. Elevated D-dimer level. CT PE could not be done due to elevated creatinine level. Right upper extremity arm swelling, DVT ruled out, thrombus of the cephalic vein from an IV site Acute kidney injury likely prerenal with possible ATN. CKD stage III. Hypovolemic hyponatremia, secondary to poor oral intake Lactic acidosis 3.1 on admission, secondary to left lower lobe pneumonia, improved History of mechanical fall status post left hip cemented unipolar hemiarthroplasty on 07/05/2023 Recent admission with anemia requiring blood transfusion 1 unit PRBC. Paroxysmal atrial fibrillation, currently rate controlled currently on heparin Mild cardiomyopathy with ejection fraction 45 to 50%. EF improved to 55 to 60% as per recent echocardiogram on 07/05/2023 Coronary artery disease nonobstructive Hypertension Hyperlipidemia History of tobacco use History of EtOH abuse GI prophylaxis with PPI DVT prophylaxis, anticoagulant being held due to anemia, status post IVC filter placement No code Plan: Patient was maintained on BiPAP on admission and has transition to 5 L via nasal cannula. Current oxygen saturation is 99%. Discussed with nursing staff about weaning FiO2. Pulmonary following. Continue with DuoNeamara, IV Solu-Medrol 60 mg every 6 hourly. Patient was given azithromycin and ceftriaxone in the ER. Currently on vancomycin and Zosyn as procalcitonin was elevated. Patient was started on heparin drip due to left lower extremity acute DVT. VQ scan was ordered due to elevated creatinine level to rule out PE. Per pulmonary no need for V/Q at this time. Follow-up chest x-ray showing stable pleural effusion with no plans of thoracentesis at this time. IV heparin was discontinued and Eliquis was resumed. There was noted hematuria noted in the gilmore and eliquis held and vascular surgery following status post IVC filter placement. Heparin has been discontinued Patient is not a good candidate for anticoagulation given significant anemia and drop in hemoglobin along with recurrent frequent falls Hemoglobin was 6.1 today on this morning's labs status post 2 units with concerns of incorrect lab values. Repeat labs ordered and pending Patient with extensive cardiac history will consult cardiology as chest x-ray showing concerns of CHF. Initiate low-dose IV Lasix Recommend PT/OT therapy evaluation, case management following as patient will be returning to ECF on discharge Continue with wound MCFP medications reviewed and resumed as appropriate Patient having occasional periods of confusion and will continue Seroquel as needed at night low-dose in the event patient becomes agitated. Encouraged opening the shades and blinds to the windows and possibly sitting up out of the bed more often and frequent reorientation. Patient is no code. Will need to discuss further with family regarding overall treatment plan GI consulted with concerns of anemia and appreciate input and recommendations. Patient will require insurance authorization for discharge to ECF Due to multiple complex medical issues, prognosis is guarded The impression and plan of care has been dictated by Akila Clemente, Nurse Practitioner as directed. Dr. Carrington MD I have performed a history and examination and MDM of this patient, discussed the same with the dictator, and agree with the dictator's assessment and plan as written ,documented as a scribe. Based on total visit time, I have performed more than 50% of the visit. Objective - Vital Signs Vital signs: Vital Signs Temp 97.4 F L 07/31/23 13:10 Pulse 71 07/31/23 08:40 Resp 12 07/31/23 13:10 BP 142/86 07/31/23 13:10 Pulse Ox 93 L 07/31/23 14:04 FiO2 40 07/23/23 02:57 Intake & Output 07/30/23 07/31/23 07/31/23 18:59 06:59 18:59 Intake Total 376.744 900 110 Output Total 400 1450 601 Balance -23.256 -550 -491 Weight 99.5 kg Intake: IV 50 Intake, IV Titration 16.744 Amount Heparin Sod,Pork in 0.45% 16.744 NaCl 25,000 unit In 0.45 % NaCl 1 250ml.bag @ 9.9 UNITS/KG/HR 9.999 mls/hr IV .Q24H [facility] Rx#: [id number] Oral 590 110 Blood Product 310 310 Rc As-1 Unit 310 [id number] Rc As-1 Unit 310 [id number] Output: Urine 400 1450 600 Uretheral (Gilmore) 350 Stool 1 Other: Voiding Method Indwelling Catheter Indwelling Catheter Indwelling Catheter # Voids 0 # Bowel Movements 1 1 1 - Labs CBC & Chem 7: 07/31/23 23:35 07/31/23 12:35 Labs: Abnormal Lab Results - Last 24 Hours (Table) 07/30/23 07/31/23 07/31/23 Range/Units 12:01 07:59 07:59 RBC 2.28 L (4.40-5.60) X 10*6/uL Hgb 6.1 A* (13.0-17.0) g/dL Hct 19.4 A* (39.6-50.0) % MCH 26.8 L (27.0-32.0) pg MCHC 31.4 L (32.0-37.0) g/dL RDW 17.2 H (11.5-14.5) % Plt Count 111 L (140-440) X 10*3/uL Immature Gran # 0.12 H (0.00-0.04) X 10*3/uL Neutrophils # (Manual) (1.3-7.7) k/uL Lymphocytes # (Manual) (1.0-4.8) k/uL Monocytes # 1.22 H (0.20-1.00) X 10*3/uL Eosinophils # 0 L (0.04-0.35) X 10*3/uL Sodium (137-145) mmol/L Potassium 2.5 A* (3.5-5.5) mmol/L Chloride 115 H (96-109) mmol/L Carbon Dioxide 14.6 L (21.6-31.8) mmol/L Anion Gap 12.40 H (4.00-12.00) mmol/L BUN 39.8 H (9.0-27.0) mg/dL BUN/Creatinine Ratio 39.80 H (12.00-20.00) Ratio Glucose 115 H (70-110) mg/dL Calcium 5.6 A* (8.7-10.3) mg/dL Magnesium 1.2 L (1.5-2.4) mg/dL TIBC (228-460) UG/DL % Saturation (15.00-50.00) Transferrin (204.0-354.0) mg/dL Ferritin (22.0-322.0) ng/mL AST 13 L (14-35) U/L Total Protein 3.5 L (6.2-8.2) g/dL Albumin 2.0 L (3.8-4.9) g/dL Globulin 1.5 L (1.6-3.3) g/dL Albumin/Globulin Ratio 1.33 L (1.60-3.17) Ratio Vitamin B12 (200.0-944.0) pg/mL Crossmatch See Detail 07/31/23 07/31/23 07/31/23 Range/Units 07:59 12:35 12:35 RBC 2.81 L (4.40-5.60) X 10*6/uL Hgb 7.9 L D (13.0-17.0) g/dL Hct 24.7 L (39.6-50.0) % MCH (27.0-32.0) pg MCHC (32.0-37.0) g/dL RDW 17.0 H (11.5-14.5) % Plt Count 130 L (140-440) X 10*3/uL Immature Gran # (0.00-0.04) X 10*3/uL Neutrophils # (Manual) 8.20 H (1.3-7.7) k/uL Lymphocytes # (Manual) 0.18 L (1.0-4.8) k/uL Monocytes # (0.20-1.00) X 10*3/uL Eosinophils # (0.04-0.35) X 10*3/uL Sodium 136 L (137-145) mmol/L Potassium 3.1 L (3.5-5.5) mmol/L Chloride (96-109) mmol/L Carbon Dioxide (21.6-31.8) mmol/L Anion Gap (4.00-12.00) mmol/L BUN 52 H (9.0-27.0) mg/dL BUN/Creatinine Ratio (12.00-20.00) Ratio Glucose 164 H (70-110) mg/dL Calcium 7.1 L (8.7-10.3) mg/dL Magnesium (1.5-2.4) mg/dL TIBC 148 L (228-460) UG/DL % Saturation 83.11 H (15.00-50.00) Transferrin 106.0 L (204.0-354.0) mg/dL Ferritin 719.0 H (22.0-322.0) ng/mL AST (14-35) U/L Total Protein (6.2-8.2) g/dL Albumin (3.8-4.9) g/dL Globulin (1.6-3.3) g/dL Albumin/Globulin Ratio (1.60-3.17) Ratio Vitamin B12 1116.0 H (200.0-944.0) pg/mL Crossmatch Microbiology - Last 24 Hours (Table) 07/27/23 13:55 Gram Stain - Final Sputum Sputum Culture - Final
[2023-08-01 06:24] LABS: Anisocytosis Slight; HCT 26.6 % (39.0-53.0); HGB 8.4 gm/dL (13.0-17.5); Hypochromasia Moderate; MCH 27.8 pg (25.0-35.0); MCHC 31.6 g/dL (31.0-37.0); MCV 87.9 fL (80.0-100.0); Mean Platelet Volume 9.6; Platelet Count 155 k/uL (150-450); Poikilocytosis Slight; RBC 3.03 m/uL (4.30-5.90); RDW 17.1 % (11.5-15.5); WBC 8.7 k/uL (3.8-10.6)
[2023-08-01 06:51] LABS: ALT 20 U/L (4-49); AST 21 U/L (17-59); African American GFR (CKD) 64 (>60 ml/min/1.73 sqM); Albumin 2.3 g/dL (3.5-5.0); Albumin/Globulin Ratio 0.9; Alkaline Phosphatase 77 U/L (38-126); Anion Gap 7 mmol/L; Blood Urea Nitrogen 48 mg/dL (9-20); Calcium 7.4 mg/dL (8.4-10.2); Carbon Dioxide 21 mmol/L (22-30); Chloride 107 mmol/L (98-107); Globulin 2.6 g/dL; Glucose 153 mg/dL (74-99); Magnesium 1.7 mg/dL (1.6-2.3); Non-African American GFR(CKD) 55 (>60 ml/min/1.73 sqM); Potassium 3.6 mmol/L (3.5-5.1); Sodium 135 mmol/L (137-145); Total Bilirubin 1.2 mg/dL (0.2-1.3); Total Protein 4.9 g/dL (6.3-8.2)
[2023-08-01 07:14] LABS: Lymphocytes # (M) 0.52 k/uL (1.0-4.8); Monocytes # (M) 0.35 k/uL (0-1.0); Neutrophils # (M) 7.83 k/uL (1.3-7.7); Neutrophils % (M) 90 %; Nucleated Red Blood Cells 0 /100 WBC (0-0); Total Cells Counted 100
[2023-08-01 07:16] LABS: Ovalocytes Present; Target Cells Present
[2023-08-01 07:17] LABS: Crenated RBC Present
--- NOTE | 2023-08-01 12:14 | P.PN ---
Subjective Progress Note Date: 08/01/23 Patient is an 88-year-old male with past medical history significant for hypertension, hyperlipidemia, paroxysmal atrial fibrillation previously anticoagulated on Eliquis, frequent falls. Patient recently fell from his wheelchair and had sustained a left hip fracture. He underwent a left hip cemented unipolar hemiarthroplasty on 07/05/2023. He was then discharged back to his extended care facility. Patient was sent back in from his ECF yesterday for evaluation of acute dyspnea. He was reportedly diagnosed with pneumonia earlier in the day, and started on doxycycline. When EMS arrived to the [facility], he was hypoxic with an SpO2 of less than 80%. He was also tachypneic and tachycardic and in respiratory distress. He was transferred to our facility on BiPAP. He is currently sitting up in bed, in some respiratory distress. On BiPAP with settings 12/6 and FiO2 of 100%. Respiratory rate is in the mid 30s and tidal volumes are greater than 800. He is unable to provide any information at this time. There is accessory muscle use. ABG done on above-mentioned settings showed a PaO2 of 183, pCO2 of 39, pH of 7.35. Chest x-ray shows a left lower lobe infiltrate and or atelectasis and small left-sided pleural effusion, possibly parapneumonic. CBC on arrival: WBC count of 30.7, hemoglobin 8.9, hematocrit 27.8, platelets 708. CMP on arrival: Sodium 130, potassium 4.9, chloride 97, serum bicarb 19, BUN 59, creatinine 2.09, glucose 106. Normal saline infusing at 130 MLS per hour. LFTs mildly elevated. Troponin 0.027. NT proBNP 5700. There is a component of acute on chronic kidney injury. Negative for influenza, RSV, COVID. Patient's D-dimer was elevated. For this reason a venous Doppler of the lower extremities was ordered, and the patient was found to have a left lower extremity DVT. Patient was previously anticoagulated on Eliquis, however, this has been stopped after his most recent fall and hip fracture. Left hip incision is approximated and clean and dry. No drainage. Hemoglobin is stable at 8.9 g/dL. Patient denies any bright red blood, melanotic stools, or hematemesis. Patient's respiratory status is currently labile, will continue to closely monitor. Patient may need transfer to the intensive care unit. In the emergency department and I had a lengthy discussion with the . The patient is currently on a BiPAP and is tolerating the BiPAP reasonably well with generation of adequate tidal volume above 500. No significant tachypnea. The patient is on a pressure setting of 12/6 and a meters of water and FiO2 has been weaned down.The white cell count from today is 29 with a hemoglobin of 7.6 and a platelet count of 527. Blood gases show a pH of 7.35 with a pCO2 of 39 and pO2 of 183 and this was on FiO2 of 100%. Viral screen has been negative and the procalcitonin level is at 4.2. BUN is at 69 with a creatinine of 2.09. Cultures were sent and the results are still pending for now. The chest x-ray showed a new area of consolidation of the left lower lobe in addition to a small left-sided pleural effusion. Ultrasound of the chest was also ordered and the results were consistent with a small left-sided pleural effusion with a 4.2 cm pocket. 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 Noted the patient was on anticoagulation with Eliquis in the past and this anticoagulation was discontinued because of his frequent falls. Noted the procalcitonin level is elevated at 4.2 On today's evaluation of 07/23/2023, seen the patient for a follow-up. The patient got moved out of the emergency department and the patient is currently on the medical floor. He was taken off the BiPAP this morning and the patient is currently on 2 L of O2 with a pulse ox of 98%. Alert awake and communicating. The white cell count is dropped down to 17.4 with a hemoglobin of 8.2 and a platelet count of 579. Hemodynamically stable. There is also interval improvement in the creatinine which is down to 1.43 with a BUN of 61. Sodium levels at 134. The patient remains on a combination of Zosyn and vancomycin. Remains on bronchodilators. Remains on IV Solu-Medrol 60 mg every 6 hours. The patient is also on IV heparin. PTT is therapeutic at this point in time. No evidence of any bleeding. Awake and alert and communicating. On today's evaluation of 07/24/2023, the patient is being seen for a follow-up. Clinically stable and the patient is currently on liters of oxygen by nasal cannula with a pulse ox of 94%. Repeat chest x-ray was done today and it shows some increase in the left lower lobe pleural effusion. There is also some infiltration/atelectasis. However clinically, the patient is stable. The patient is currently off the BiPAP. He has developed a small left-sided pleural effusion, likely parapneumonic in nature. Ultrasound of the chest was done yesterday showed a 4.2 cm pocket in the left lung. The WBC count is at 10.1 whi ch is improved with a hemoglobin of 7.7 slightly lower compared to yesterday with a platelet count of 537. Rest of the electrolytes are still pending. The patient remains on IV heparin. Remains on Zosyn and vancomycin coverage. No significant tachycardia. The patient is on DuoNeb updrafts. The patient on IV Solu-Medrol. The patient on Zosyn and vancomycin. The patient is on metoprolol 12.5 mg p.o. twice a day. On today's evaluation on 07/25/2023, the patient continues to improve. The white cell count is down to 7.8. The patient remains on 3 L of oxygen by nasal cannula. No significant respite distress. Repeat chest x-ray was done today and shows a stable left-sided pleural effusion that has not changed in size and the patient also has some stable infiltration of the left lung base consistent with pneumonia but small parapneumonic effusion. Hemoglobin is currently down to 6.6. The patient will be given a unit of packed RBC accordingly. Rest of the electrolytes show a creatinine of 1.33 with a BUN of 56 and a sodium levels at 138 with a potassium level of 4.1. The patient remains on IV heparin. He does have a DVT of the left lower extremity. No evidence of any GI bleeding at this point in time while being on IV heparin. On today's evaluation on 07/26/2023, the patient is being seen for a follow-up. The patient was given a unit of packed RBC yesterday and the hemoglobin is currently at 7.4. He is on oxygen 3 L with a pulse ox of 92%. He is lethargic and weak. Nevertheless denies having any significant shortness of breath. No chest pain. Remains on Zosyn and vancomycin. Nasal screen for MRSA was positive. Possibility of MRSA pneumonia cannot be completely excluded. The patient also developed a small parapneumonic effusion not amenable for thoracen tesis. He is a DNR/DNI CODE STATUS. Remains on bronchodilators. Remains on steroids. In addition, the patient is experiencing some hematuria at baseline and anticoagulation was stopped. Based on his high risk for anticoagulation and previous history of falls and concern for bleed, anticoagulation was placed on hold and vascular surgery was consulted for IVC filter placement. On today's evaluation, the patient is essentially unchanged remains on 3 L of oxygen by nasal cannula with a pulse ox of 97%. Chest x-ray was repeated this morning and the patient has an unchanged left-sided pleural effusion and left lower lobe consolidation. Remains on Zosyn and vancomycin. Labs from today shows a white cell count of 8 with a hemoglobin of 8 and a platelet count of 329. Electrolytes are within normal limits from yesterday. Creatinine is down to 1.2. No active hematuria and patient will be placed back on IV heparin pending vascular surgery consult 07/28/2023, patient is being seen for a follow-up. The patient is currently on oxygen at 4 L. Calm and comfortable. Noted frustrated. He is weak and quite debilitated at this point in time. He remains on Zosyn and vancomycin. He remains on IV heparin. No evidence of any hematuria. Howard catheter is in place. Hemoglobin is at 7.6. BUN is 53 with creatinine 1.24 levels at 139. Limited congested cough. No significant sputum production. He did encounter some swelling l upper extremity and a Doppler showed no evidence of any DVT in the right upper extremity. Nonocclusive thrombus was seen within the right cephalic vein. The patient is seen today July 29, 2023 in follow-up on the regular medical floor. He is currently sitting up in bed. Awake and alert in no acute distress. He is maintaining good O2 saturations in the upper 90s on 5 L/min per nasal cannula. He is afebrile. Hemodynamically stable. He remains on a heparin drip. Continued on bronchodilators and steroids. Antibiotics in the form of vancomycin and Zosyn. The patient is seen today July 30, 2023 in follow-up on the regular medical floor. He is awake and alert in no acute distress. He is maintaining O2 saturations in the 90s on 5 L/min per nasal cannula. White count 4.5. Hemoglobin 6.1. Platelets 173. Creatinine 1.24. He remains on a heparin drip. The plan is for IVC filter placement today. Packed red blood cell transfusion has been ordered. Remains on vancomycin and Zosyn. Continued on Flovent, albuterol, Spiriva. Remains on IV Solu-Medrol. The patient is seen today July 31, 2023 in follow-up on the regular medical floor. He is sitting up in bed. Awake and alert in no acute distress. Continuing to maintain O2 saturations in the 90s on 5 L/min per nasal cannula. He has been afebrile. Hemodynamically stable. He did go for IVC filter placement yesterday. Groin site is stable. Blood and sputum cultures revealed no growth. White count 6.6. Hemoglobin 6.1. Platelets 111. He is status post 3 units of packed red blood cells this admission. He remains on Serevent, Flovent, Spiriva. Remains on IV Solu-Medrol. Remains on antibiotics in the form of vancomycin and Zosyn. The patient is seen today August 01, 2023 in follow-up on the regular medical floor. He is awake and alert in no acute distress. Sitting up in bed having breakfast. Denies any worsening shortness of breath, cough or congestion. He is maintaining good O2 saturations in the upper 90s on 6 L/min per nasal cannula. He is afebrile. Hemodynamically stable. He is status post 3 units of packed red blood cells this admission. Blood culture revealed no growth. Sputum culture revealed no growth. White count 8.7. Hemoglobin 8.4. Platelets 155. Sodium 135. Potassium 3.6. Bicarb 21. BUN 48. Creatinine 1.17. Glucose 153. He remains on bronchodilators, steroids. Antibiotics in the form of vancomycin and Zosyn. Objective - Vital Signs Vital signs: Vital Signs Temp 97.7 F 08/01/23 08:00 Pulse 86 08/01/23 08:00 Resp 18 08/01/23 08:00 BP 123/68 08/01/23 08:00 Pulse Ox 98 08/01/23 08:17 FiO2 40 07/23/23 02:57 Intake & Output 04/08/01/23 08/01/23 18:59 06:59 18:59 Intake Total 350 590 240 Output Total 1401 1300 Balance -1051 -710 240 Weight 99.6 kg Intake: Oral 350 590 240 Output: Urine 1400 1300 Stool 1 Other: Voiding Method Indwelling Catheter Indwelling Catheter Indwelling Catheter # Voids 0 # Bowel Movements 1 1 - Exam GENERAL EXAM: Alert, frail 88-year-old male, on 6 L nasal cannula, sitting up in bed, in no apparent distress. HEAD: Normocephalic. EYES: Normal reaction of pupils, equal size. NOSE: Clear with pink turbinates. THROAT: No erythema or exudates. NECK: No masses, no JVD. CHEST: No chest wall deformity. LUNGS: Equal air entry with crackles in the left lung base. CVS: S1 and S2 normal with no audible murmur, regular rhythm. ABDOMEN: No hepatosplenomegaly, normal bowel sounds, no guarding or rigidity. SPINE: No scoliosis or deformity SKIN: No rashes CENTRAL NERVOUS SYSTEM: No focal deficits, tone is normal in all 4 extremities. EXTREMITIES: Multiple areas of ecchymosis. Left hip incision clean dry well- approximated there is no peripheral edema. No clubbing, no cyanosis. Peripheral pulses are intact. - Labs CBC & Chem 7: 08/01/23 05:41 08/01/23 05:41 Labs: Abnormal Lab Results - Last 24 Hours (Table) 07/31/23 07/31/23 07/31/23 Range/Units 07:59 07:59 12:35 RBC 2.81 L (4.30-5.90) m/uL Hgb 7.9 L D (13.0-17.5) gm/dL Hct 24.7 L (39.0-53.0) % RDW 17.0 H (11.5-15.5) % Plt Count 130 L (150-450) k/uL Neutrophils # (Manual) 8.20 H (1.3-7.7) k/uL Lymphocytes # (Manual) 0.18 L (1.0-4.8) k/uL Sodium (137-145) mmol/L Potassium 2.5 A* (3.5-5.5) mmol/L Chloride 115 H (96-109) mmol/L Carbon Dioxide 14.6 L (21.6-31.8) mmol/L Anion Gap 12.40 H (4.00-12.00) mmol/L BUN 39.8 H (9.0-27.0) mg/dL BUN/Creatinine Ratio 39.80 H (12.00-20.00) Ratio Glucose 115 H (70-110) mg/dL Calcium 5.6 A* (8.7-10.3) mg/dL Magnesium 1.2 L (1.5-2.4) mg/dL TIBC 148 L (228-460) UG/DL % Saturation 83.11 H (15.00-50.00) Transferrin 106.0 L (204.0-354.0) mg/dL Ferritin 719.0 H (22.0-322.0) ng/mL AST 13 L (14-35) U/L Total Protein 3.5 L (6.2-8.2) g/dL Albumin 2.0 L (3.8-4.9) g/dL Globulin 1.5 L (1.6-3.3) g/dL Albumin/Globulin Ratio 1.33 L (1.60-3.17) Ratio Vitamin B12 1116.0 H (200.0-944.0) pg/mL 07/31/23 07/31/23 08/01/23 Range/Units 12:35 23:35 05:41 RBC 2.98 L (4.30-5.90) m/uL Hgb 8.4 L (13.0-17.5) gm/dL Hct 26.1 L (39.0-53.0) % RDW 17.1 H (11.5-15.5) % Plt Count (150-450) k/uL Neutrophils # (Manual) 8.89 H (1.3-7.7) k/uL Lymphocytes # (Manual) 0.51 L (1.0-4.8) k/uL Sodium 136 L 135 L (137-145) mmol/L Potassium 3.1 L (3.5-5.5) mmol/L Chloride (96-109) mmol/L Carbon Dioxide 21 L (21.6-31.8) mmol/L Anion Gap (4.00-12.00) mmol/L BUN 52 H 48 H (9.0-27.0) mg/dL BUN/Creatinine Ratio (12.00-20.00) Ratio Glucose 164 H 153 H (70-110) mg/dL Calcium 7.1 L 7.4 L (8.7-10.3) mg/dL Magnesium (1.5-2.4) mg/dL TIBC (228-460) UG/DL % Saturation (15.00-50.00) Transferrin (204.0-354.0) mg/dL Ferritin (22.0-322.0) ng/mL AST (14-35) U/L Total Protein 4.9 L (6.2-8.2) g/dL Albumin 2.3 L (3.8-4.9) g/dL Globulin (1.6-3.3) g/dL Albumin/Globulin Ratio (1.60-3.17) Ratio Vitamin B12 (200.0-944.0) pg/mL 08/01/23 Range/Units 05:41 RBC 3.03 L (4.30-5.90) m/uL Hgb 8.4 L (13.0-17.5) gm/dL Hct 26.6 L (39.0-53.0) % RDW 17.1 H (11.5-15.5) % Plt Count (150-450) k/uL Neutrophils # (Manual) 7.83 H (1.3-7.7) k/uL Lymphocytes # (Manual) 0.52 L (1.0-4.8) k/uL Sodium (137-145) mmol/L Potassium (3.5-5.5) mmol/L Chloride (96-109) mmol/L Carbon Dioxide (21.6-31.8) mmol/L Anion Gap (4.00-12.00) mmol/L BUN (9.0-27.0) mg/dL BUN/Creatinine Ratio (12.00-20.00) Ratio Glucose (70-110) mg/dL Calcium (8.7-10.3) mg/dL Magnesium (1.5-2.4) mg/dL TIBC (228-460) UG/DL % Saturation (15.00-50.00) Transferrin (204.0-354.0) mg/dL Ferritin (22.0-322.0) ng/mL AST (14-35) U/L Total Protein (6.2-8.2) g/dL Albumin (3.8-4.9) g/dL Globulin (1.6-3.3) g/dL Albumin/Globulin Ratio (1.60-3.17) Ratio Vitamin B12 (200.0-944.0) pg/mL Microbiology - Last 24 Hours (Table) 07/27/23 13:55 Gram Stain - Final Sputum Sputum Culture - Final Assessment and Plan Assessment: Acute hypoxemic respiratory failure, possibly multifactorial, secondary to acute COPD exacerbation and possible left-sided community-acquired pneumonia and left- sided pleural effusion, possibly parapneumonic. Possibility of a hospital- acquired pathogen cannot be completely ruled out. Patient is currently on 6 L of oxygen nasal cannula and his repeat chest x-ray shows a stable left lung inf iltrate and stable left-sided pleural effusion which is essentially small and ultrasound pocket was approximately 4.2 cm in size. Acute left lower lobe pneumonia, most likely bacterial infection and the patient procalcitonin level is also elevated. 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 Completed 10 days of vancomycin and Zosyn Acute leukocytosis, possibly secondary to above, recovered Left lower extremity DVT The ultrasound of the lower extremity on the left reveals chronic clot versus partially occlusive thrombus involving the long segment of the left lower extremity. Note that the patient was off his anticoagulants due to his frequent falls and anemia. IVC filter placed July 30, 2023 Frequent falls, with recent left hip femoral neck fracture, status/post left hip cemented unipolar hemiarthroplasty on 07/05/2023 History of fall with multiple left-sided rib fractures and pulmonary contusion History of paroxysmal atrial fibrillation, Eliquis has been stopped Acute on chronic kidney disease, creatinine is improved compared to yesterday the patient is recovering from his acute kidney injury Acute on top of chronic anemia with a drop in hemoglobin again at 6.1 on 07/31/2023, status post 3 units of packed RBCs this admission, current hemoglobin 8.4 History of thoracic level wound/cellulitis, isolated organism at that time was MRSA History of hyperlipidemia History of hypertension History of former tobacco dependence Chronic obstructive pulmonary disease History of alcoholism Hematuria Poor overall functional performance based on the above-mentioned multiple comorbidities Plan: The patient was seen and evaluated Medications and labs reviewed Completed vancomycin and Zosyn Continue bronchodilators Transitioned to oral steroids Titrate down the FiO2 as tolerated Plan is to return to [facility] at discharge This patient was seen independently by the pulmonary nurse practitioner addressing pulmonary issues I have personally seen and examined the patient, performed the documentation and the assessment and plan as written. Number of minutes spent on the visit: 25.
--- NOTE | 2023-08-01 12:43 | P.CRDCN ---
History of Present Illness Consult date: 08/01/23 Consult reason: congestive heart failure History of present illness: History of present illness: This is an 88-year-old male patient of Dr. Perales with past medical history of coronary artery disease with mild disease in the LAD and left circumflex, paroxysmal atrial fibrillation, hypertension, nonischemic cardiomyopathy with previous EF of 45%, hyperlipidemia. We have been asked to evaluate the patient for CHF. Patient presented to the hospital on 07/20 for dyspnea. Patient has been followed closely by pulmonary medicine for acute hypoxic respiratory failure secondary to COPD exacerbation, pneumonia, left-sided pleural effusion. Patient initially required BiPAP and currently on O2 at 6 L nasal cannula. Patient is complaining of cough with sputum production. Patient was previously on Eliquis 2.5 mg twice daily which was stopped after recent fall and hip fracture status post Prince arthroplasty on 07/05/2023. 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 IVC filter was placed on 07/31/2023. Patient also had a drop in his hemoglobin down to 6.1 is transfused a total of 3 units of packed RBCs. Patient is currently on IV Lasix 40 mg daily which was started yesterday. EKG sinus tachycardia 113 bpm with left bundle branch block obtained on 07/20 Chest x-ray performed on 07/30: Stable small to moderate left pleural effusion. Stable left and developing right lower lobe infiltrate. Correlate for atelectasis or pneumonia. Laboratory studies from today reveal WBC 8.7, hemoglobin 8.4. Sodium 135, potassium 3.6. BUN 48 creatinine 1.17. Troponin was negative x 1. proBNP 13,800. Home cardiac medications: Atorvastatin 20 mg at bedtime, lisinopril 2.5 mg daily, Lopressor 12.5 mg twice daily. Echocardiogram performed 07/04/2023 revealed EF of 55 to 60% Review Of Systems: At the time of my exam: CONSTITUTIONAL: Denies fever or chills. HEENT: Denies blurred vision, vision changes, or eye pain. Denies hemoptysis CARDIOVASCULAR: Denies chest pain. Denies orthopnea. Denies PND. Denies palpitations RESPIRATORY: Reports cough, shortness of breath. GASTROINTESTINAL: Denies abdominal pain. Denies nausea or vomiting. HEMATOLOGIC: Denies bleeding disorders. GENITOURINARY: Denies any blood in urine. SKIN: Denies pruitis. Denies rash. Physical examination: Gen: This is an 88-year-old male in no acute respiratory distress. VS: reviewed HEENT: Head is atraumatic, normocephalic. Pupils equal, round. Sclerae is anicte katja. NECK: Supple. No JVD. LUNGS: Diminished breath sounds in left base. No intercostal retractions. HEART: Regular rate and rhythm. 2/6 systolic ejection murmur. ABDOMEN: Soft No tenderness. EXTREMITIES: No pedal edema. No calf tenderness. NEUROLOGICAL: Patient is awake, alert. Assessment: Acute on chronic hypoxic respiratory failure secondary to COPD exacerbation, pneumonia, left pleural effusion Left lower extremity status post IVC filter Acute blood loss anemia status posttransfusion of 3 units packed RBCs Acute on chronic systolic heart failure Nonischemic cardiomyopathy Paroxysmal atrial fibrillation currently off anticoagulation Hypertension Hyperlipidemia History of frequent falls with recent left femoral neck fracture status post hemiarthroplasty Plan: Continue current cardiac medications Continue IV Lasix 40 mg daily Monitor SHERLYN, daily weights, electrolytes and renal function Further recommendations to follow based upon clinical course Thank you kindly for this consultation. Nurse practitioner note has been reviewed, I agree with documented findings and plan of care. Patient was seen and examined. Past Medical History Past Medical History: Coronary Artery Disease (CAD), Hyperlipidemia, Hypertension Additional Past Medical History / Comment(s): arthritis in back, cataracts History of Any Multi-Drug Resistant Organisms: MRSA Date of last positivie culture/infection: 01/23/23 MDRO Source:: Back Past Surgical History: Heart Catheterization, Hernia Repair, Orthopedic Surgery, Tonsillectomy Additional Past Surgical History / Comment(s): colonoscopy, iban cataracts, wi sdom teeth, left hip replacement Past Anesthesia/Blood Transfusion Reactions: No Reported Reaction Past Psychological History: No Psychological Hx Reported Smoking Status: Light tobacco smoker Past Alcohol Use History: Occasional Past Drug Use History: None Reported - Past Family History Father Family Medical History: Cancer Additional Family Medical History / Comment(s): ca of lymph nodes Medications and Allergies Home Medications Medication Instructions Recorded Confirmed Type Latanoprost Ophth [Xalatan 0.005%] 1 drop BOTH EYES HS 01/02/17 07/22/23 History Thiamine [Vitamin B-1] 100 mg PO DAILY #30 tab 11/27/21 07/22/23 Rx Famotidine [Pepcid] 20 mg PO DAILY 08/29/22 07/22/23 History Albuterol Inhaler [Ventolin Hfa 2 puff INHALATION RT-Q6H PRN 10/27/22 07/22/23 History Inhaler] Atorvastatin [Lipitor] 20 mg PO HS 01/21/23 07/22/23 History Magnesium Hydroxide [Milk of 2,400 mg PO DAILY PRN 01/21/23 07/22/23 History Magnesia] Sennosides [Senokot] 8.6 mg PO DAILY 07/03/23 07/22/23 History Ferrous Sulfate [Iron (65 MG 325 mg PO DAILY #30 tab 07/08/23 07/22/23 Rx Elemental)] Docusate [Colace] 100 mg PO BID 07/11/23 07/22/23 History Menthol [Icy Hot] 1 patch TRANSDERM BID 07/11/23 07/22/23 History Metoprolol Tartrate [Lopressor] 12.5 mg PO BID@0700,1900 07/11/23 07/22/23 History Pantoprazole [Protonix] 40 mg PO DAILY 07/11/23 07/22/23 History HYDROcodone/APAP 5-325MG [[place] 1 tab PO Q6HR PRN #6 tab 07/12/23 07/22/23 Rx 5-325] Acetaminophen [Tylenol 8 Hour] 650 mg PO Q6H PRN 07/22/23 07/22/23 History Doxycycline [Vibramycin] 100 mg PO BID@0700,1600 07/22/23 07/22/23 History Ipratropium-Albuterol Nebulize 3 ml INHALATION RT-TID 07/22/23 07/22/23 History [Duoneb 0.5 mg-3 mg/3 ml Soln] lisinopriL [Zestril] 2.5 mg PO DAILY@0700 07/22/23 07/22/23 History Allergies Allergy/AdvReac Type Severity Reaction Status Date / Time No Known Allergies Allergy Verified 07/22/23 11:45 Physical Exam Vitals: Vital Signs Temp Pulse Resp BP BP Pulse Ox 08/01/23 08:17 98 08/01/23 08:00 97.7 F 86 18 123/68 100 08/01/23 02:00 98.1 F 80 20 107/65 93 L 04/17/24 20:00 20 07/31/23 19:37 98.6 F 80 20 111/69 93 L 07/31/23 14:04 93 L 07/31/23 13:10 97.4 F L 12 142/86 Intake and Output 07/31/23 08/01/23 08/01/23 22:59 06:59 14:59 Intake Total 240 590 240 Output Total 800 1300 Balance -560 -710 240 Intake: Oral 240 590 240 Output: Urine 800 1300 Other: Voiding Method Indwelling Catheter Indwelling Catheter # Voids 0 # Bowel Movements 1 Weight 99.6 kg Results 08/01/23 05:41 08/01/23 05:41 Cardiac Enzymes 07/31/23 07/31/23 08/01/23 Range/Units 07:59 12:35 05:41 AST 13 L 21 (14-35) U/L Troponin I <0.012 (0.000-0.034) ng/mL CBC 07/31/23 07/31/23 08/01/23 Range/Units 12:35 23:35 05:41 WBC 9.2 10.1 8.7 (3.8-10.6) k/uL RBC 2.81 L 2.98 L 3.03 L (4.30-5.90) m/uL Hgb 7.9 L D 8.4 L 8.4 L (13.0-17.5) gm/dL Hct 24.7 L 26.1 L 26.6 L (39.0-53.0) % Plt Count 130 L 160 155 (150-450) k/uL Comprehensive Metabolic Panel 07/31/23 07/31/23 08/01/23 Range/Units 07:59 12:35 05:41 Sodium 142 136 L 135 L (135-145) mmol/L Potassium 2.5 A* 3.1 L 3.6 (3.5-5.5) mmol/L Chloride 115 H 107 107 (96-109) mmol/L Carbon Dioxide 14.6 L 22 21 L (21.6-31.8) mmol/L BUN 39.8 H 52 H 48 H (9.0-27.0) mg/dL Creatinine 1.0 1.23 1.17 (0.6-1.5) mg/dL Glucose 115 H 164 H 153 H (70-110) mg/dL Calcium 5.6 A* 7.1 L 7.4 L (8.7-10.3) mg/dL AST 13 L 21 (14-35) U/L ALT 14 20 (10-49) U/L Alkaline Phosphatase 54 77 (41-126) U/L Total Protein 3.5 L 4.9 L (6.2-8.2) g/dL Albumin 2.0 L 2.3 L (3.8-4.9) g/dL Current Medications Generic Name Dose Route Start Last Admin Trade Name Freq PRN Reason Stop Dose Admin Albuterol Sulfate 2 puff 07/29/23 08:00 08/01/23 11:43 Albuterol Hfa Inhaler INHALATION 2 puff RT-QID MARIAN Administration Atorvastatin Calcium 20 mg 07/23/23 21:00 07/31/23 20:26 Atorvastatin 20 Mg Tab PO 20 mg HS MARIAN Administration Fluticasone Propionate 2 puff 07/29/23 08:00 08/01/23 08:08 Fluticasone 220 Mcg Inhaler INHALATION 2 puff RT-BID MARIAN Administration Folic Acid 1 mg 07/29/23 11:30 08/01/23 07:46 Folic Acid 1 Mg Tab PO 1 mg DAILY MARIAN Administration Furosemide 40 mg 07/31/23 13:45 08/01/23 11:10 Furosemide 10 Mg/Ml 4 Ml Vial IV 40 mg DAILY MARIAN Administration Latanoprost 1 drops 07/23/23 00:00 07/31/23 20:27 Latanoprost 0.005% Ophth Drops 2.5 Ml Btl BOTH EYES 1 drops HS MARIAN Administration Metoprolol Tartrate 12.5 mg 07/22/23 23:45 08/01/23 07:46 Metoprolol Tartrate 12.5 Mg Tab PO 12.5 mg BID@0700,1900 MARIAN Administration Miscellaneous Information 1 each 07/31/23 15:18 Magnesium Replacement Protocol 1 Each Misc MISCELLANE DAILY PRN Per Protocol Protocol Miscellaneous Information 1 each 07/31/23 15:18 Potassium Replacement Protocol 1 Each Misc MISCELLANE DAILY PRN Per Protocol Protocol Multivitamins 1 each 07/29/23 12:00 07/31/23 13:20 Multivitamins, Thera 1 Each Tab PO 1 each DAILY@1200 MARIAN Administration Pantoprazole Sodium 40 mg 07/22/23 09:00 08/01/23 11:10 Pantoprazole 40 Mg/10 Ml Vial IVP 40 mg DAILY MARIAN Administration Petrolatum 1 applic 07/27/23 05:58 Zinc Oxide Paste (Z-Guard) 1 Applic TOPICAL Q2HR PRN Wound Healing Protocol Potassium Chloride 20 meq 07/31/23 21:00 08/01/23 07:46 Potassium Chloride Er 20 Meq Tab.Er PO 20 meq BID MARIAN Administration Prednisone 30 mg 08/02/23 09:00 Prednisone 10 Mg Tab PO 08/06/23 09:01 DAILY MARIAN Quetiapine Fumarate 12.5 mg 07/24/23 15:57 07/31/23 21:45 Quetiapine 25 Mg Tab PO 12.5 mg HS PRN Administration Agitation Salmeterol Xinafoate 1 puff 07/29/23 08:00 08/01/23 08:09 Salmeterol 50 Mcg Inhaler INHALATION 1 puff RT-BID MARIAN Administration Thiamine HCl 100 mg 07/29/23 11:30 08/01/23 07:46 Thiamine 100 Mg Tab PO 100 mg DAILY MARIAN Administration Tiotropium [place] 2 puff 07/29/23 08:00 08/01/23 08:09 Tiotropium 2.5 Mcg Inhaler INHALATION 2 puff RT-DAILY MARIAN Administration Intake and Output 07/31/23 08/01/23 08/01/23 22:59 06:59 14:59 Intake Total 240 590 240 Output Total 800 1300 Balance -560 -710 240 Intake: Oral 240 590 240 Output: Urine 800 1300 Other: Voiding Method Indwelling Catheter Indwelling Catheter # Voids 0 # Bowel Movements 1 Weight 99.6 kg 08/01/23 05:41 08/01/23 05:41
--- NOTE | 2023-08-01 15:27 | XR ---
EXAMINATION TYPE: XR chest 1V portable DATE OF EXAM: 08/01/2023 Comparison: 07/31/2023 Clinical History: 88-year-old male with shortness of breath Findings: Heart mildly enlarged. There are moderate bilateral pleural effusions and perihilar opacity. Impression: Cardiomegaly and increasing moderate bilateral pleural effusions with adjacent atelectasis and/or con solidation. Mild interstitial pulmonary edema.
--- NOTE | 2023-08-01 16:48 | P.PN ---
Subjective Progress Note Date: 08/01/23 Principal diagnosis: Anemia This is a pleasant 88-year-old male with a history of atrial fibrillation who was on Eliquis previously, coronary artery disease hypertension hyperlipidemia and mild cardial myopathy who came in with shortness of breath and pneumonia. Patient had a recent fall last month and fractured his left hip and underwent surgery on 07/05/2023. He was started on Eliquis at that time and came in July 10 to with anemia and was transfused 1 unit of blood and discharged. He presented back on 07/21/2023 for shortness of breath and diagnosed with pneumonia. He had an elevated D-dimer on admission and had a venous duplex that reported a left lower extremity deep vein thrombosis chronic clot versus partial occluded thrombus. He was then started on IV heparin infusion. He had a drop in his hemoglobin to 6.8 requiring 1 unit of blood transfusion. Patient remains anemic concerns for acute blood loss anemia with hematuria noted during this admission but apparently also concern for possible GI source for blood loss. Yesterday he underwent IVC filter placement and anticoagulation has been discontinued at this time. Patient denies any blood in his stool or black stool. Denies any history of previous GI bleed. States he had a colonoscopy many years ago and it was normal. No history of peptic ulcer disease and not aware of any EGD. Denies any abdominal pain, nausea or vomiting. Denies any significant weight loss. Patient's hemoglobin yesterday had dropped to 6.1 he has received a total of 3 units this admission. No current labs available. 08/01/2023 Patient seen and examined today as a follow-up. He denies any abdominal pain, nausea or vomiting. Denies any blood or black stool. Hemoglobin stable at 8.4. Iron studies revealed iron at 123 and ferritin 719 course this is status post blood transfusion. He is no longer on any anticoagulation. He is eating well. Objective - Vital Signs Vital signs: Vital Signs Temp 97.6 F 08/01/23 13:45 Pulse 112 H 08/01/23 13:45 Resp 18 08/01/23 13:45 BP 120/85 08/01/23 13:45 Pulse Ox 92 L 08/01/23 13:45 FiO2 40 07/23/23 02:57 Intake & Output 07/31/23 08/01/23 08/01/23 18:59 06:59 18:59 Intake Total 350 590 240 Output Total 1401 1300 700 Balance -1051 -710 -460 Weight 99.6 kg 99.6 kg Intake: Oral 350 590 240 Output: Urine 1400 1300 700 Stool 1 Other: Voiding Method Indwelling Catheter Indwelling Catheter Indwelling Catheter # Voids 0 # Bowel Movements 1 1 - Exam General appearance: The patient is alert, oriented, appears in no acute distress. HET: Head is normocephalic and atraumatic. Conjunctiva pink. Sclera anicteric. Neck: Supple without lymphadenopathy. Abdomen: Soft, nontender, nondistended with bowel sounds. No guarding or rigidity. Extremities: Right upper extremity bruising, bilateral hand swelling. Bilateral lower extremity edema. Skin: No rashes, no jaundice Neurological: No focal deficits. Alert and oriented. - Labs CBC & Chem 7: 08/01/23 05:41 08/01/23 05:41 Labs: Abnormal Lab Results - Last 24 Hours (Table) 07/31/23 08/01/23 08/01/23 Range/Units 23:35 05:41 05:41 RBC 2.98 L 3.03 L (4.30-5.90) m/uL Hgb 8.4 L 8.4 L (13.0-17.5) gm/dL Hct 26.1 L 26.6 L (39.0-53.0) % RDW 17.1 H 17.1 H (11.5-15.5) % Neutrophils # (Manual) 8.89 H 7.83 H (1.3-7.7) k/uL Lymphocytes # (Manual) 0.51 L 0.52 L (1.0-4.8) k/uL Sodium 135 L (137-145) mmol/L Carbon Dioxide 21 L (22-30) mmol/L BUN 48 H (9-20) mg/dL Glucose 153 H (74-99) mg/dL Calcium 7.4 L (8.4-10.2) mg/dL Total Protein 4.9 L (6.3-8.2) g/dL Albumin 2.3 L (3.5-5.0) g/dL Microbiology - Last 24 Hours (Table) 07/27/23 13:55 Gram Stain - Final Sputum Sputum Culture - Final Assessment and Plan (1) Normocytic normochromic anemia Narrative/Plan: 88-year-old male with normocytic normochromic anemia with multiple comorbidities presented to the emergency department with shortness of breath found to have pneumonia. Had recent fall and left hip fracture status post surgery. He was noted to have elevated D-dimer and a positive left lower extremity DVT. He was started on a heparin drip. He has required 3 units of blood this admission. Was reported that he had gross hematuria however patient has Howard catheter and does not appear to have any blood in his urine at this time. Questionable if source of anemia is from GI tract. Gastroenterology consulted. Patient has had no previous iron studies done. Those will be ordered. No previous history of upper endoscopy. Remote colonoscopy. Patient has no signs or symptoms of GI bleed. Anticoagulation has been discontinued at this time as patient has IVC filter placed. Will trend hemoglobin. Further recommendations forthcoming based on clinical course. May need to consider possible upper endoscopy however we will wait on iron studies. Patient without any evidence of GI bleed. Hemoglobin stable at 8.4 now off anticoagulation. Possibility patient may have had a small AVM which is stable as patient is not on any anticoagulation. Iron studies currently are normal. No plans at this time for endoscopic evaluation. Will repeat labs in the morning, make patient n.p.o. after midnight tentatively for possible endoscopic evaluation if significant drop in hemoglobin. Current Visit: Yes Status: Acute Code(s): D64.9 - ANEMIA, UNSPECIFIED SNOMED Code(s): 32308950 (2) Atrial fibrillation Narrative/Plan: Was not on anticoagulation Current Visit: Yes Status: Acute Code(s): I48.91 - UNSPECIFIED ATRIAL FIBRILLATION SNOMED Code(s): 15403246 (3) Pneumonia Current Visit: Yes Status: Acute Code(s): J18.9 - PNEUMONIA, UNSPECIFIED ORGANISM SNOMED Code(s): 517630056 (4) Gross hematuria Current Visit: Yes Status: Acute Code(s): R31.0 - GROSS HEMATURIA SNOMED Code(s): 113242879 (5) Coronary artery disease Current Visit: No Status: Acute Code(s): I25.10 - ATHSCL HEART DISEASE OF [place] CORONARY ARTERY W/O ANG PCTRS SNOMED Code(s): 22993715 (6) Fall Current Visit: No Status: Acute Code(s): W19.XXXA - UNSPECIFIED FALL, INITIAL ENCOUNTER SNOMED Code(s): 5362242 (7) Hip fracture, left Narrative/Plan: Status post surgery Current Visit: No Status: Acute Priority: Medium Code(s): S72.002A - FRACTURE OF UNSP PART OF NECK OF LEFT FEMUR, INIT SNOMED Code(s): 237661508 (8) Left leg DVT Narrative/Plan: Left lower extremity deep vein thrombosis, previous anticoagulation with heparin infusion. Status post IVC filter placement Current Visit: Yes Status: Acute Code(s): I82.402 - ACUTE EMBOLISM AND THOMBOS UNSP DEEP VEINS OF L LOW EXTREM SNOMED Code(s): 662890703 Plan: 1. Continue symptomatic and supportive care 2. Avoid anticoagulation 3. Iron studies, anemia profile ordered and reviewed 4. Daily CBC, transfuse for hemoglobin less than 7 5. Diet as tolerated, n.p.o. after midnight 6. No plans at this time for endoscopic evaluation. Will tentatively make patient n.p.o. after midnight and repeat CBC tomorrow. If significant drop in hemoglobin may consider upper endoscopy 7. Rest of medical management per primary medical team Thank you for this consultation, we will continue to follow. Dr. Prakash Santizo I agree with the dictator's note, documented as a scribe by Genoveva Choi.
[2023-08-01] MEDS: MAGNESIUM SULFATE-D5W PMX 1 GM in DEXTROSE/WATER 1 100ML.BAG IVPB ONE (20:24)
--- NOTE | 2023-08-02 03:32 | P.PN ---
Subjective Progress Note Date: 08/01/23 Patient is a 88-year-old male with a past medical history of hypertension, hyperlipidemia, paroxysmal atrial fibrillation coronary artery disease nonobstructive, mild cardiomyopathy ejection fraction 45-50 %, history of right tobacco smoker and left hip hemiarthroplasty on 07/05/2023 due to mechanical fa ll. Patient presented from nursing facility due to worsening shortness of breath/dyspnea. Patient was diagnosed with pneumonia and was started on doxycycline. He was placed on oxygen at 4 L via nasal cannula and EMS was called due to hypoxia with pulse ox down to 80% and patient was tachycardic and tachypneic. Patient was placed on BiPAP by EMS and was transferred to ER. Otherwise patient denies any complaints of chest pain. Cough with occasional sputum production. Tmax 101.0 on admission. Patient was recently admitted to due to acute blood loss anemia from 07/11/2023 to 07/12/2023. requiring 1 unit PRBC transfusion. Eliquis was held and was discharged back to residential facility for rehab. Chest x-ray showed chronic parenchymal changes with new small left pleural effusion and left lower lobe acute infiltrates/atelectasis. EKG showed sinus tachycardia with possible left atrial enlargement. Lower extremity venous duplex showed suboptimal study. Long segment left lower extremity DVT is present. Findings reflect chronic clot or partially occlusive thrombus. Correlate clinically. Mild to moderate diffuse subcutaneous edema is seen on images obtained. Laboratory data showed WBC 13.7 hemoglobin 8.9 and platelets 708, D-dimer 4.11 ABG showed pH 7.35 pCO2 39, pO2 183 Sodium 130 potassium 4.9 chloride 97 bicarb is 19 BUN 59 and creatinine 2.09 and blood sugar 106 and lactic acid 3.1 total bilirubin 3.5 and alk phos 268, proBNP 5700, troponin 0.027 and albumin 2.8 Influenza A, B, RSV and COVID-19 PCR not detected. 07/23/2023 Patient is seen and evaluated in follow-up. Patient was continued on BiPAP and is currently maintaining oxygen saturations above 90% on 3 L. Patient continues on IV heparin drip with left lower extremity DVT. VQ scan was ordered as jean t was unable to have CT of the chest for PE evaluation as kidney functions are elevated. Will hold on VQ scan for now as patient unable to tolerate lying flat. Continue IV heparin and will likely need to transition back to Eliquis. 07/24/2023 Patient is seen and evaluated in follow-up today with pulmonary following. Patient continues on 3 L via nasal cannula and has been off of the BiPAP. Fol low-up chest x-ray today shows increasing left lower lobe pleural effusion with associated atelectasis and/or infiltrate. Strongly encourage incentive spirometer although patient needs much encouragement as he is extremely weak and confused at times. Patient continues on IV heparin and will for now as there will be a follow-up chest x-ray in the a.m. and may require a thoracentesis with pulmonary following closely. Will discuss with pulmonary in regards to transitioning to Eliquis or if patient is appropriate for any further anticoagulation. Patient is afebrile with no reported chest pain or worsening shortness of breath. Patient is continued on IV steroids along with antibiotics and DuoNeb breathing treatments. Encouraged oral intake and recommend aspiration precautions with head of the bed elevated 45 degrees at all times. 07/25/2023 Patient is seen this morning currently asleep although arousable. Patient maintained on 3 L via nasal cannula with pulmonary following. Follow-up chest x-ray shows stable effusion and pulmonary reporting no plans for thoracentesis at this time. Patient was continued on IV heparin although will transition to oral Eliquis and monitor for any bleeding. There are no active signs of bleeding at this time although hemoglobin was noted to be 6.6 today. Will transfuse 1 unit of PRBC follow-up on repeat labs. Patient continues on antibiotics sided pneumonia. Patient is afebrile and denies any chest pain or palpitations. Patient has a congested cough and difficulty expectorating. Encouraged incentive spirometer use and sitting up more often. Continue with DuoNeb treatments at this time. 07/26/2023 Patient is seen and evaluated in follow-up status post 1 unit of PRBC. Hemoglobin is 7.4 today with no active bleeding noted. Patient continues on DuoNeb treatments and will continue on antibiotics with pulmonary following closely. 07/27/2023 Patient is currently lying in the bed. Awake alert. Still having shortness of breath and oxygen requirement at 3 L via nasal cannula. Patient is on antibiotics in the form of vancomycin and Zosyn. Nasal swab cultures positive for MRSA. Patient is also on IV Solu-Medrol 60 mg every 6 hourly and DuoNebs. Patient was started back on anticoagulation with heparin drip. Vascular surgery was consulted. DVT. Chest x-ray showed unchanged left pleural effusion with associated atelectasis or infiltrate. Laboratory data showed WBC 8.0 hemoglobin 8.1 and platelets 288 INR 1.3. FOBT negative. 07/28/2023 Patient is lying in the bed. Awake alert but lethargic and weak. And currently requiring 4 L oxygen via nasal cannula. Currently on heparin drip due to lower extremity DVT and also on IV antibiotics. Hemoglobin is fairly stable at 7.6. No hematuria noted. Patient is also being continued on IV Solu-Medrol and DuoNebs. Pulmonary is on board. Vascular surgery was consulted. Patient does have significant right upper extremity swelling with possible extravasation of the IV line. Duplex scan was ordered to rule DVT. Laboratory showed WBC 6.8 hemoglobin 7.6 and platelets 265 Sodium 139 potassium 3.5 chloride 110 bicarb is 23 BUN 53 and creatinine 1.24 and blood sugar 166. Calcium 8.0. 07/29/2023 Patient is seen in follow-up today with multiple medical consultations hilario bee. Patient is continued on 5 L via nasal cannula although 99% and discussed with nursing staff about weaning FiO2 as tolerated. Patient continues on IV heparin for lower extremity DVT and hemoglobin is stable above 7. No further hematuria noted. Vascular surgery consulted for possible IVC filter placement as patient is a poor candidate for anticoagulation. Patient continues with some right upper extremity swelling and DVT was ruled out, difficult to exclude a thrombus in the cephalic vein where an IV was placed. Continue with supportive care and elevating that extremity. Patient with significant weakness recommend PT/OT therapy daily. Patient will be returning to [facility] once cleared by consultations. Will await vascular surgery evaluation. Patient to continue on breathing inhalational treatments along with antibiotics and IV steroids. 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 07/30/2023 Patient is seen and evaluated this morning currently scheduled to undergo IVC filter placement as patient has been having drops in hemoglobin with no specific bleeding noted. Hematuria has resolved and was brief as patient continues with indwelling Gilmore catheter and urine is clear. Patient was initiated back on IV heparin for acute DVT in the left lower extremity although having complications with reduced hemoglobin, vascular was consulted for IVC filter. Patient is not a good candidate for anticoagulation. Hemoglobin was 6.1 today and will transfuse 2 units with Lasix in between and consult GI and appreciate input and recommendations. Patient denies any bleeding or difficulties with tolerating diet. Per nursing staff patient has had bowel movements that are brown with no blood noted, no dark melanotic stools noted. Patient is continued on antibiotics with pulmonary following as well congested weak cough likely chronic. Will obtain a chest x-ray. 07/31/2023 Patient is seen in follow-up with multiple medical consultations following his IVC filter placement. Patient had significant electrolyte and hemoglobin abnormalities this morning and awaiting repeat labs as patient received 2 units yesterday and hemoglobin was noted to be 6.1 again today. Repeat labs ordered and pending. Patient with critically low potassium and magnesium also awaiting repeat and will replace per protocol. Patient denies any bleeding or pain. Patient is maintained on antibiotics with pulmonary following with concerns of pneumonia on admission. Patient tolerating diet and denies any nausea or vomiting. GI has been consulted with concerns of possible GI bleed. Cardiology will be consulted as well for CHF. Will initiate low-dose Lasix and follow-up on repeat labs in the a.m. 08/01/2023 Patient is seen in follow-up today and hemoglobin remained stable above 8 with no active bleeding noted. GI consulted with concerns of possible GI bleed as patient had continued drop in hemoglobin. Patient is off anticoagulation and status post IVC filter placement. Not a good candidate for anticoagulation. Iron studies ordered and within normal limits. Will follow-up with repeat chest x-ray as patient having some vascular congestion. Continue IV Lasix daily and follow-up with repeat labs. Replace electrolytes per protocol. Recommend aspiration precautions and having the head of the bed elevated 30 to 45 degrees at all times and supervision with meals. Review of systems: Constitutional: No reports of fatigue, fever, or chills Cardiovascular: No reports of chest pain or palpitations Respiratory: No reports of worsening shortness of breath, reports weak cough that is chronic GI: No reports of nausea, vomiting, or diarrhea : No reports of dysuria or retention, no further hematuria Neurovascular: reports of extreme generalized weakness All medications have been reviewed PHYSICAL EXAMINATION: Patient is lying in the bed., awake alert and oriented x 2, confused at times. Baseline. Currently on 4 L via nasal cannula, well-developed, thin built, elderly appearing, ill-appearing HEENT: Normocephalic. Neck is supple. Pupils reactive. Nostrils clear. Oral cavity is moist. Neck reveals no JVD, carotid bruits, or thyromegaly. CHEST EXAMINATION: Trachea is central. Symmetrical expansion. Left basilar coarse sounds. Mild expiratory wheeze.. Crackles noted at the bases, bronchial congestion noted CARDIAC: S1, S2 are muffled ABDOMEN: Soft. Thin. Bowel sounds normal. No organomegaly. No abdominal bruits. Extremities: reveal no edema. No clubbing or cyanosis, bilateral lower extremity swelling worse on the left, foot drop noted on the left as well. Left hip surgical site has scabbing noted with no redness or drainage noted, healing well and approximated Neurologically awake, alert, oriented x 2-3. Diffusely weak Skin: No rash or skin lesions. Pale Psychiatric: Cooperative. Could not be assessed completely Musculoskeletal: No joint swelling or deformity. Assessment: Acute hypoxemic respiratory failure due to left lower lobe pneumonia and left s ided pleural effusion and COPD. Patient was requiring BiPAP on admission. Transitioned to nasal cannula, currently 4 L Acute on chronic congestive heart failure with systolic dysfunction Acute on chronic anemia, acute blood loss secondary to anticoagulation and hematuria Hematuria, possibly secondary to resumption of anticoagulation versus possible trauma as patient does occasionally pull at IVs and tubings. Resolved Sepsis secondary to pneumonia, bacterial, present on admission Acute left lower extremity DVT. Elevated D-dimer level. CT PE could not be done due to elevated creatinine level. Right upper extremity arm swelling, DVT ruled out, thrombus of the cephalic vein from an IV site Acute kidney injury likely prerenal with possible ATN. CKD stage III. Hypovolemic hyponatremia, secondary to poor oral intake Lactic acidosis 3.1 on admission, secondary to left lower lobe pneumonia, improved History of mechanical fall status post left hip cemented unipolar hemiarthroplasty on 07/05/2023 Recent admission with anemia requiring blood transfusion 1 unit PRBC. Paroxysmal atrial fibrillation, currently rate controlled status post IVC filter placement Nonischemic cardiomyopathy with ejection fraction 45 to 50%. EF improved to 55 to 60% as per recent echocardiogram on 07/05/2023 Coronary artery disease nonobstructive Hypertension Hyperlipidemia History of tobacco use History of EtOH abuse GI prophylaxis with PPI DVT prophylaxis, anticoagulant being held due to anemia, status post IVC filter placement No code Plan: Patient was maintained on BiPAP on admission and has transition to 4 L via nasal cannula. Current oxygen saturation is 99%. Discussed with nursing staff about weaning FiO2. Pulmonary following. Continue with DuoNebs, IV Solu-Medrol 60 mg every 6 hourly. Patient was given azithromycin and ceftriaxone in the ER. Currently on vancomycin and Zosyn as procalcitonin was elevated. Patient was started on heparin drip due to left lower extremity acute DVT. VQ scan was ordered due to elevated creatinine level to rule out PE. Per pulmonary no need for V/Q at this time. Follow-up chest x-ray showing continued pleural effusion with no plans of thoracentesis at this time. IV heparin was discontinued and Eliquis was resumed. There was noted hematuria noted in the gilmore and eliquis held and vascular surgery following status post IVC filter placement. Heparin has been discontinued. Patient remains off anticoagulation Patient is not a good candidate for anticoagulation given significant anemia and drop in hemoglobin along with recurrent frequent falls Hemoglobin is stable above today and will follow-up with repeat CBC. GI consulted with concerns of possible GI bleed although no active bleeding at this time and will consider possible EGD if there is a drop in hemoglobin. Patient will be n.p.o. at midnight Patient with extensive cardiac history with cardiology following, concerns of acute CHF exacerbation and will continue IV Lasix daily for now. Follow-up on labs and replace electrolytes per protocol Recommend PT/OT therapy evaluation, case management following as patient will be returning to ECF on discharge Continue with wound prison medications reviewed and resumed as appropriate Patient having occasional periods of confusion and will continue Seroquel as needed at night low-dose in the event patient becomes agitated. Encouraged opening the shades and blinds to the windows and possibly sitting up out of the bed more often and frequent reorientation. Patient is no code. Will need to discuss further with family regarding overall treatment plan Due to multiple complex medical issues, prognosis is guarded The impression and plan of care has been dictated by Akila Clemente, Nurse Practitioner as directed. Dr. Carrington MD I have performed a history and examination and MDM of this patient, discussed the same with the dictator, and agree with the dictator's assessment and plan as written ,documented as a scribe. Based on total visit time, I have performed more than 50% of the visit. Objective - Vital Signs Vital signs: Vital Signs Temp 97.8 F 08/02/23 02:00 Pulse 60 08/02/23 02:00 Resp 16 08/02/23 02:00 BP 128/81 08/02/23 02:00 Pulse Ox 92 L 08/02/23 02:00 FiO2 40 07/23/23 02:57 Intake & Output 08/01/23 08/01/23 08/02/23 06:59 18:59 06:59 Intake Total 590 240 100 Output Total 1300 2200 800 Balance -811 -8179 -700 Weight 99.6 kg 99.6 kg Intake: Intake, IV Titration 100 Amount Magnesium Sulfate-D5w Pmx 100 1 gm In Dextrose/Water 1 100ml.bag @ 100 mls/hr IVPB ONCE ONE Rx#: [id number] Oral 590 240 Output: Urine 1300 2200 800 Other: Voiding Method Indwelling Catheter Indwelling Catheter Indwelling Catheter # Voids 0 # Bowel Movements 1 - Labs CBC & Chem 7: 08/01/23 05:41 08/01/23 05:41 Labs: Abnormal Lab Results - Last 24 Hours (Table) 08/01/23 08/01/23 Range/Units 05:41 05:41 RBC 3.03 L (4.30-5.90) m/uL Hgb 8.4 L (13.0-17.5) gm/dL Hct 26.6 L (39.0-53.0) % RDW 17.1 H (11.5-15.5) % Neutrophils # (Manual) 7.83 H (1.3-7.7) k/uL Lymphocytes # (Manual) 0.52 L (1.0-4.8) k/uL Sodium 135 L (137-145) mmol/L Carbon Dioxide 21 L (22-30) mmol/L BUN 48 H (9-20) mg/dL Glucose 153 H (74-99) mg/dL Calcium 7.4 L (8.4-10.2) mg/dL Total Protein 4.9 L (6.3-8.2) g/dL Albumin 2.3 L (3.5-5.0) g/dL
[2023-08-02 06:22] LABS: Anisocytosis Slight; HCT 25.8 % (39.0-53.0); HGB 8.1 gm/dL (13.0-17.5); Hypochromasia Slight; MCH 27.8 pg (25.0-35.0); MCHC 31.6 g/dL (31.0-37.0); MCV 87.9 fL (80.0-100.0); Mean Platelet Volume 9.4; Platelet Count 179 k/uL (150-450); Poikilocytosis Slight; RBC 2.93 m/uL (4.30-5.90); RDW 17.1 % (11.5-15.5)
[2023-08-02 06:48] LABS: African American GFR (CKD) 75 (>60 ml/min/1.73 sqM); Anion Gap 5 mmol/L; Blood Urea Nitrogen 42 mg/dL (9-20); Calcium 7.2 mg/dL (8.4-10.2); Carbon Dioxide 24 mmol/L (22-30); Chloride 105 mmol/L (98-107); Glucose 152 mg/dL (74-99); Non-African American GFR(CKD) 65 (>60 ml/min/1.73 sqM); Potassium 3.4 mmol/L (3.5-5.1); Sodium 134 mmol/L (137-145)
[2023-08-02] MEDS: predniSONE 10 MG TAB PO SCH (09:13)
[2023-08-02] MEDS: FUROSEMIDE 10 MG/ML 4 ML VIAL IV SCH (09:14)
[2023-08-02] MEDS ORDERED: Potassium Replacement Protocol 1 EACH MISC MISCELLANE PRN (09:43)
[2023-08-02] MEDS ORDERED: Magnesium Replacement Protocol 1 EACH MISC MISCELLANE PRN (09:43)
--- NOTE | 2023-08-02 09:46 | P.PN ---
Subjective Progress Note Date: 08/02/23 Consult reason: congestive heart failure History of present illness: History of present illness: This is an 88-year-old male patient of Dr. Perales with past medical history of coronary artery disease with mild disease in the LAD and left circumflex, paro xysmal atrial fibrillation, hypertension, nonischemic cardiomyopathy with previous EF of 45%, hyperlipidemia. We have been asked to evaluate the patient for CHF. Patient presented to the hospital on 07/20 for dyspnea. Patient has been followed closely by pulmonary medicine for acute hypoxic respiratory failure secondary to COPD exacerbation, pneumonia, left-sided pleural effusion. Patient initially required BiPAP and currently on O2 at 6 L nasal cannula. Patient is complaining of cough with sputum production. Patient was previously on Eliquis 2.5 mg twice daily which was stopped after recent fall and hip fracture status post Prince arthroplasty on 07/05/2023. 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 IVC filter was placed on 07/31/2023. Patient also had a drop in his hemoglobin down to 6.1 is transfused a total of 3 units of packed RBCs. Patient is currently on IV Lasix 40 mg daily which was started yesterday. EKG sinus tachycardia 113 bpm with left bundle branch block obtained on 07/20 Chest x-ray performed on 07/30: Stable small to moderate left pleural effusion. Stable left and developing right lower lobe infiltrate. Correlate for atelectasis or pneumonia. Laboratory studies from today reveal WBC 8.7, hemoglobin 8.4. Sodium 135, potassium 3.6. BUN 48 creatinine 1.17. Troponin was negative x 1. proBNP 13,800. Home cardiac medications: Atorvastatin 20 mg at bedtime, lisinopril 2.5 mg daily, Lopressor 12.5 mg twice daily. Echocardiogram performed 07/04/2023 revealed EF of 55 to 60% 08/01 Patient is seen today in follow-up. His breathing is little more difficult today. He is on IV Lasix 40 mg daily that has been increased to twice daily by pulmonary medicine this morning. He continues to have lower extremity edema but improved. Patient has a negative fluid balance. Blood pressure 150/86 otherwise been running in the 120s systolic. Heart rate is in the 80s, pulse ox 100% on 5 L nasal cannula. Repeat blood work reveals WBC 12, hemoglobin 8.1. S odium 134, potassium 3.4, BUN 42 creatinine 1.02. Potassium is already been replaced. Physical examination: Gen: This is an 88-year-old male in no acute respiratory distress. VS: reviewed HEENT: Head is atraumatic, normocephalic. Pupils equal, round. Sclerae is anicteric. NECK: Supple. No JVD. LUNGS: Diminished breath sounds in left base. No intercostal retractions. HEART: Regular rate and rhythm. 2/6 systolic ejection murmur. ABDOMEN: Soft No tenderness. EXTREMITIES: No pedal edema. No calf tenderness. NEUROLOGICAL: Patient is awake, alert. Assessment: Acute on chronic hypoxic respiratory failure secondary to COPD exacerbation, pneumonia, left pleural effusion Left lower extremity status post IVC filter Acute blood loss anemia status posttransfusion of 3 units packed RBCs Acute on chronic systolic heart failure Nonischemic cardiomyopathy Paroxysmal atrial fibrillation currently off anticoagulation Hypertension Hyperlipidemia History of frequent falls with recent left femoral neck fracture status post hemiarthroplasty Plan: Continue current cardiac medications Continue IV Lasix 40 mg twice daily Monitor SHERLYN, daily weights, electrolytes and renal function Further recommendations to follow based upon clinical course Thank you kindly for this consultation. Nurse practitioner note has been reviewed, I agree with documented findings and plan of care. Patient was seen and examined. Objective - Vital Signs Vital signs: Vital Signs Temp 97.6 F 08/02/23 07:18 Pulse 87 08/02/23 07:18 Resp 18 08/02/23 07:18 BP 150/86 08/02/23 07:18 Pulse Ox 100 08/02/23 07:18 FiO2 40 07/23/23 02:57 Intake & Output 08/01/23 08/02/23 08/02/23 18:59 06:59 18:59 Intake Total 240 690 Output Total 2200 1300 Balance -1959 - Weight 99.6 kg 101.5 kg Intake: Intake, IV Titration 100 Amount Magnesium Sulfate-D5w Pmx 100 1 gm In Dextrose/Water 1 100ml.bag @ 100 mls/hr IVPB ONCE ONE Rx#: [id number] Oral 240 590 Output: Urine 2200 1300 Other: Voiding Method Indwelling Catheter Indwelling Catheter # Bowel Movements 1 - Labs CBC & Chem 7: 08/02/23 04:34 08/02/23 04:34 Labs: Abnormal Lab Results - Last 24 Hours (Table) 08/02/23 08/02/23 Range/Units 04:34 04:34 WBC 12.0 H (3.8-10.6) k/uL RBC 2.93 L (4.30-5.90) m/uL Hgb 8.1 L (13.0-17.5) gm/dL Hct 25.8 L (39.0-53.0) % RDW 17.1 H (11.5-15.5) % Sodium 134 L (137-145) mmol/L Potassium 3.4 L (3.5-5.1) mmol/L BUN 42 H (9-20) mg/dL Glucose 152 H (74-99) mg/dL Calcium 7.2 L (8.4-10.2) mg/dL
--- NOTE | 2023-08-02 10:05 | P.PN ---
Subjective Progress Note Date: 08/02/23 Principal diagnosis: Anemia This is a pleasant 88-year-old male with a history of atrial fibrillation who was on Eliquis previously, coronary artery disease hypertension hyperlipidemia and mild cardial myopathy who came in with shortness of breath and pneumonia. Patient had a recent fall last month and fractured his left hip and underwent surgery on 07/05/2023. He was started on Eliquis at that time and came in July 10 to with anemia and was transfused 1 unit of blood and discharged. He presented back on 07/21/2023 for shortness of breath and diagnosed with pneumonia. He had an elevated D-dimer on admission and had a venous duplex that reported a left lower extremity deep vein thrombosis chronic clot versus partial occluded thrombus. He was then started on IV heparin infusion. He had a drop in his hemoglobin to 6.8 requiring 1 unit of blood transfusion. Patient remains anemic concerns for acute blood loss anemia with hematuria noted during this admission but apparently also concern for possible GI source for blood loss. Yesterday he underwent IVC filter placement and anticoagulation has been discontinued at this time. Patient denies any blood in his stool or black stool. Denies any history of previous GI bleed. States he had a colonoscopy many years ago and it was normal. No history of peptic ulcer disease and not aware of any EGD. Denies any abdominal pain, nausea or vomiting. Denies any significant weight loss. Patient's hemoglobin yesterday had dropped to 6.1 he has received a total of 3 units this admission. No current labs available. 08/01/2023 Patient seen and examined today as a follow-up. He denies any abdominal pain, nausea or vomiting. Denies any blood or black stool. Hemoglobin stable at 8.4. Iron studies revealed iron at 123 and ferritin 719 course this is status post blood transfusion. He is no longer on any anticoagulation. He is eating well. 08/02/2023 Patient seen and examined today as a follow-up. He is sitting up in bed. He is without any complaints. Denies any blood in his stool. Denies abdominal pain, nausea or vomiting. Appetite has been good. Hemoglobin stable today at 8.1. Objective - Vital Signs Vital signs: Vital Signs Temp 97.8 F 08/02/23 02:00 Pulse 60 08/02/23 02:00 Resp 16 08/02/23 02:00 BP 128/81 04/19/24 02:00 Pulse Ox 92 L 08/02/23 02:00 FiO2 40 07/23/23 02:57 Intake & Output 08/01/23 08/01/23 08/02/23 06:59 18:59 06:59 Intake Total 590 240 690 Output Total 1300 2200 1300 Balance -710 -1960 -610 Weight 99.6 kg 99.6 kg 101.5 kg Intake: Intake, IV Titration 100 Amount Magnesium Sulfate-D5w Pmx 100 1 gm In Dextrose/Water 1 100ml.bag @ 100 mls/hr IVPB ONCE ONE Rx#: [id number] Oral 590 240 590 Output: Urine 1300 2200 1300 Other: Voiding Method Indwelling Catheter Indwelling Catheter Indwelling Catheter # Voids 0 # Bowel Movements 1 - Exam General appearance: The patient is alert, oriented, appears in no acute distress. HET: Head is normocephalic and atraumatic. Conjunctiva pink. Sclera anicteric. Neck: Supple without lymphadenopathy. Abdomen: Soft, nontender, nondistended with bowel sounds. No guarding or rigidity. Extremities: Right upper extremity bruising, bilateral hand swelling. Bilateral lower extremity edema. Skin: No rashes, no jaundice Neurological: No focal deficits. Alert and oriented. - Labs CBC & Chem 7: 08/02/23 04:34 08/02/23 04:34 Labs: Abnormal Lab Results - Last 24 Hours (Table) 08/01/23 08/01/23 08/02/23 Range/Units 05:41 05:41 04:34 WBC 12.0 H (3.8-10.6) k/uL RBC 2.93 L (4.30-5.90) m/uL Hgb 8.1 L (13.0-17.5) gm/dL Hct 25.8 L (39.0-53.0) % RDW 17.1 H (11.5-15.5) % Neutrophils # (Manual) 7.83 H (1.3-7.7) k/uL Lymphocytes # (Manual) 0.52 L (1.0-4.8) k/uL Sodium 135 L (137-145) mmol/L Carbon Dioxide 21 L (22-30) mmol/L BUN 48 H (9-20) mg/dL Glucose 153 H (74-99) mg/dL Calcium 7.4 L (8.4-10.2) mg/dL Total Protein 4.9 L (6.3-8.2) g/dL Albumin 2.3 L (3.5-5.0) g/dL Assessment and Plan (1) Normocytic normochromic anemia Narrative/Plan: 88-year-old male with normocytic normochromic anemia with multiple comorbidities presented to the emergency department with shortness of breath found to have pneumonia. Had recent fall and left hip fracture status post surgery. He was noted to have elevated D-dimer and a positive left lower extremity DVT. He was started on a heparin drip. He has required 3 units of blood this admission. Was reported that he had gross hematuria however patient has Howard catheter and does not appear to have any blood in his urine at this time. Questionable if source of anemia is from GI tract. Gastroenterology consulted. Patient has had no previous iron studies done. Those will be ordered. No previous history of upper endoscopy. Remote colonoscopy. Patient has no signs or symptoms of GI bleed. Anticoagulation has been discontinued at this time as patient has IVC filter placed. Will trend hemoglobin. Further recommendations forthcoming based on clinical course. May need to consider possible upper endoscopy however we will wait on iron studies. Patient without any evidence of GI bleed. Hemoglobin stable at 8.4 now off anticoagulation. Possibility patient may have had a small AVM which is stable as patient is not on any anticoagulation. Iron studies currently are normal. No plans at this time for endoscopic evaluation. Will repeat labs in the morning, make patient n.p.o. after midnight tentatively for possible endoscopic evaluation if significant drop in hemoglobin. Current Visit: Yes Status: Acute Code(s): D64.9 - ANEMIA, UNSPECIFIED SNOMED Code(s): 38592291 (2) Atrial fibrillation Narrative/Plan: Was not on anticoagulation Current Visit: Yes Status: Acute Code(s): I48.91 - UNSPECIFIED ATRIAL FIBRILLATION SNOMED Code(s): 10039675 (3) Pneumonia Current Visit: Yes Status: Acute Code(s): J18.9 - PNEUMONIA, UNSPECIFIED ORGANISM SNOMED Code(s): 398148685 (4) Gross hematuria Current Visit: Yes Status: Acute Code(s): R31.0 - GROSS HEMATURIA SNOMED Code(s): 098293154 (5) Coronary artery disease Current Visit: No Status: Acute Code(s): I25.10 - ATHSCL HEART DISEASE OF [place] CORONARY ARTERY W/O ANG PCTRS SNOMED Code(s): 13025052 (6) Fall Current Visit: No Status: Acute Code(s): W19.XXXA - UNSPECIFIED FALL, INITIAL ENCOUNTER SNOMED Code(s): 8030500 (7) Hip fracture, left Narrative/Plan: Status post surgery Current Visit: No Status: Acute Priority: Medium Code(s): S72.002A - FRACTURE OF UNSP PART OF NECK OF LEFT FEMUR, INIT SNOMED Code(s): 973179426 (8) Left leg DVT Narrative/Plan: Left lower extremity deep vein thrombosis, previous anticoagulation with heparin infusion. Status post IVC filter placement Current Visit: Yes Status: Acute Code(s): I82.402 - ACUTE EMBOLISM AND THOMBOS UNSP DEEP VEINS OF L LOW EXTREM SNOMED Code(s): 810706463 Plan: 1. Continue symptomatic and supportive care 2. Avoid anticoagulation 3. Iron studies, anemia profile ordered and reviewed 4. Patient may have regular diet 5. No plans at this time for endoscopic evaluation. 6. Rest of medical management per primary medical team Thank you for this consultation, patient is cleared from gastroenterology for discharge. If he has further episodes of anemia he can follow-up outpatient. We will sign off at this time. Dr. Prakash Santizo I agree with the dictator's note, documented as a scribe by Genoveva Choi.
[2023-08-02] MEDS: POTASSIUM CHLORIDE ER 20 MEQ TAB.ER PO SCH (12:37)
--- NOTE | 2023-08-02 13:09 | P.PN ---
Subjective Progress Note Date: 08/02/23 Patient is an 88-year-old male with past medical history significant for hypertension, hyperlipidemia, paroxysmal atrial fibrillation previously anticoagulated on Eliquis, frequent falls. Patient recently fell from his wheelchair and had sustained a left hip fracture. He underwent a left hip cemented unipolar hemiarthroplasty on 07/05/2023. He was then discharged back to his extended care facility. Patient was sent back in from his ECF yesterday for evaluation of acute dyspnea. He was reportedly diagnosed with pneumonia earlier in the day, and started on doxycycline. When EMS arrived to the [facility], he was hypoxic with an SpO2 of less than 80%. He was also tachypneic and tachycardic and in respiratory distress. He was transferred to our facility on BiPAP. He is currently sitting up in bed, in some respiratory distress. On BiPAP with settings 12/6 and FiO2 of 100%. Respiratory rate is in the mid 30s and tidal volumes are greater than 800. He is unable to provide any information at this time. There is accessory muscle use. ABG done on above-mentioned settings showed a PaO2 of 183, pCO2 of 39, pH of 7.35. Chest x-ray shows a left lower lobe infiltrate and or atelectasis and small left-sided pleural effusion, possibly parapneumonic. CBC on arrival: WBC count of 30.7, hemoglobin 8.9, hematocrit 27.8, platelets 708. CMP on arrival: Sodium 130, potassium 4.9, chloride 97, serum bicarb 19, BUN 59, creatinine 2.09, glucose 106. Normal saline infusing at 130 MLS per hour. LFTs mildly elevated. Troponin 0.027. NT proBNP 5700. There is a component of acute on chronic kidney injury. Negative for influenza, RSV, COVID. Patient's D-dimer was elevated. For this reason a venous Doppler of the lower extremities was ordered, and the patient was found to have a left lower extremity DVT. Patient was previously anticoagulated on Eliquis, however, this has been stopped after his most recent fall and hip fracture. Left hip incision is approximated and clean and dry. No drainage. Hemoglobin is stable at 8.9 g/dL. Patient denies any bright red blood, melanotic stools, or hematemesis. Patient's respiratory status is currently labile, will continue to closely monitor. Patient may need transfer to the intensive care unit. In the emergency department and I had a lengthy discussion with the . The patient is currently on a BiPAP and is tolerating the BiPAP reasonably well with generation of adequate tidal volume above 500. No significant tachypnea. The patient is on a pressure setting of 12/6 and a meters of water and FiO2 has been weaned down.The white cell count from today is 29 with a hemoglobin of 7.6 and a platelet count of 527. Blood gases show a pH of 7.35 with a pCO2 of 39 and pO2 of 183 and this was on FiO2 of 100%. Viral screen has been negative and the procalcitonin level is at 4.2. BUN is at 69 with a creatinine of 2.09. Cultures were sent and the results are still pending for now. The chest x-ray showed a new area of consolidation of the left lower lobe in addition to a small left-sided pleural effusion. Ultrasound of the chest was also ordered and the results were consistent with a small left-sided pleural effusion with a 4.2 cm pocket. 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 Noted the patient was on anticoagulation with Eliquis in the past and this anticoagulation was discontinued because of his frequent falls. Noted the procalcitonin level is elevated at 4.2 On today's evaluation of 07/23/2023, seen the patient for a follow-up. The patient got moved out of the emergency department and the patient is currently on the medical floor. He was taken off the BiPAP this morning and the patient is currently on 2 L of O2 with a pulse ox of 98%. Alert awake and communicating. The white cell count is dropped down to 17.4 with a hemoglobin of 8.2 and a platelet count of 579. Hemodynamically stable. There is also interval improvement in the creatinine which is down to 1.43 with a BUN of 61. Sodium levels at 134. The patient remains on a combination of Zosyn and vancomycin. Remains on bronchodilators. Remains on IV Solu-Medrol 60 mg every 6 hours. The patient is also on IV heparin. PTT is therapeutic at this point in time. No evidence of any bleeding. Awake and alert and communicating. On today's evaluation of 07/24/2023, the patient is being seen for a follow-up. Clinically stable and the patient is currently on liters of oxygen by nasal cannula with a pulse ox of 94%. Repeat chest x-ray was done today and it shows some increase in the left lower lobe pleural effusion. There is also some infiltration/atelectasis. However clinically, the patient is stable. The patient is currently off the BiPAP. He has developed a small left-sided pleural effusion, likely parapneumonic in nature. Ultrasound of the chest was done yesterday showed a 4.2 cm pocket in the left lung. The WBC count is at 10.1 whi ch is improved with a hemoglobin of 7.7 slightly lower compared to yesterday with a platelet count of 537. Rest of the electrolytes are still pending. The patient remains on IV heparin. Remains on Zosyn and vancomycin coverage. No significant tachycardia. The patient is on DuoNeb updrafts. The patient on IV Solu-Medrol. The patient on Zosyn and vancomycin. The patient is on metoprolol 12.5 mg p.o. twice a day. On today's evaluation on 07/25/2023, the patient continues to improve. The white cell count is down to 7.8. The patient remains on 3 L of oxygen by nasal cannula. No significant respite distress. Repeat chest x-ray was done today and shows a stable left-sided pleural effusion that has not changed in size and the patient also has some stable infiltration of the left lung base consistent with pneumonia but small parapneumonic effusion. Hemoglobin is currently down to 6.6. The patient will be given a unit of packed RBC accordingly. Rest of the electrolytes show a creatinine of 1.33 with a BUN of 56 and a sodium levels at 138 with a potassium level of 4.1. The patient remains on IV heparin. He does have a DVT of the left lower extremity. No evidence of any GI bleeding at this point in time while being on IV heparin. On today's evaluation on 07/26/2023, the patient is being seen for a follow-up. The patient was given a unit of packed RBC yesterday and the hemoglobin is currently at 7.4. He is on oxygen 3 L with a pulse ox of 92%. He is lethargic and weak. Nevertheless denies having any significant shortness of breath. No chest pain. Remains on Zosyn and vancomycin. Nasal screen for MRSA was positive. Possibility of MRSA pneumonia cannot be completely excluded. The patient also developed a small parapneumonic effusion not amenable for thoracen tesis. He is a DNR/DNI CODE STATUS. Remains on bronchodilators. Remains on steroids. In addition, the patient is experiencing some hematuria at baseline and anticoagulation was stopped. Based on his high risk for anticoagulation and previous history of falls and concern for bleed, anticoagulation was placed on hold and vascular surgery was consulted for IVC filter placement. On today's evaluation, the patient is essentially unchanged remains on 3 L of oxygen by nasal cannula with a pulse ox of 97%. Chest x-ray was repeated this morning and the patient has an unchanged left-sided pleural effusion and left lower lobe consolidation. Remains on Zosyn and vancomycin. Labs from today shows a white cell count of 8 with a hemoglobin of 8 and a platelet count of 329. Electrolytes are within normal limits from yesterday. Creatinine is down to 1.2. No active hematuria and patient will be placed back on IV heparin pending vascular surgery consult 07/28/2023, patient is being seen for a follow-up. The patient is currently on oxygen at 4 L. Calm and comfortable. Noted frustrated. He is weak and quite debilitated at this point in time. He remains on Zosyn and vancomycin. He remains on IV heparin. No evidence of any hematuria. Howard catheter is in place. Hemoglobin is at 7.6. BUN is 53 with creatinine 1.24 levels at 139. Limited congested cough. No significant sputum production. He did encounter some swelling l upper extremity and a Doppler showed no evidence of any DVT in the right upper extremity. Nonocclusive thrombus was seen within the right cephalic vein. The patient is seen today July 29, 2023 in follow-up on the regular medical floor. He is currently sitting up in bed. Awake and alert in no acute distress. He is maintaining good O2 saturations in the upper 90s on 5 L/min per nasal cannula. He is afebrile. Hemodynamically stable. He remains on a heparin drip. Continued on bronchodilators and steroids. Antibiotics in the form of vancomycin and Zosyn. The patient is seen today July 30, 2023 in follow-up on the regular medical floor. He is awake and alert in no acute distress. He is maintaining O2 saturations in the 90s on 5 L/min per nasal cannula. White count 4.5. Hemoglobin 6.1. Platelets 173. Creatinine 1.24. He remains on a heparin drip. The plan is for IVC filter placement today. Packed red blood cell transfusion has been ordered. Remains on vancomycin and Zosyn. Continued on Flovent, albuterol, Spiriva. Remains on IV Solu-Medrol. The patient is seen today July 31, 2023 in follow-up on the regular medical floor. He is sitting up in bed. Awake and alert in no acute distress. Continuing to maintain O2 saturations in the 90s on 5 L/min per nasal cannula. He has been afebrile. Hemodynamically stable. He did go for IVC filter placement yesterday. Groin site is stable. Blood and sputum cultures revealed no growth. White count 6.6. Hemoglobin 6.1. Platelets 111. He is status post 3 units of packed red blood cells this admission. He remains on Serevent, Flovent, Spiriva. Remains on IV Solu-Medrol. Remains on antibiotics in the form of vancomycin and Zosyn. The patient is seen today August 01, 2023 in follow-up on the regular medical floor. He is awake and alert in no acute distress. Sitting up in bed having breakfast. Denies any worsening shortness of breath, cough or congestion. He is maintaining good O2 saturations in the upper 90s on 6 L/min per nasal cannula. He is afebrile. Hemodynamically stable. He is status post 3 units of packed red blood cells this admission. Blood culture revealed no growth. Sputum culture revealed no growth. White count 8.7. Hemoglobin 8.4. Platelets 155. Sodium 135. Potassium 3.6. Bicarb 21. BUN 48. Creatinine 1.17. Glucose 153. He remains on bronchodilators, steroids. Antibiotics in the form of vancomycin and Zosyn. The patient is seen today August 02, 2023 in follow-up on the regular medical floor. He is currently sitting up in bed. Awake and alert in no acute distress. He denies any worsening shortness of breath, cough or congestion. He is still requiring 5 L high flow nasal cannula to maintain O2 saturations in the 90s. His chest x-ray is showing evidence of increasing pulmonary edema. He is currently on Lasix 40 mg p.o. daily. He remains afebrile. Hemodynamically stable. He is status post 3 units of packed red blood cells this admission. Current hemoglobin 8.1. Platelets 179. White count 12.0. Sodium 134. Potassium 3.4. Bicarb 24. BUN 42. Creatinine 1.02. Glucose 152. He completed his course of antibiotics. Objective - Vital Signs Vital signs: Vital Signs Temp 97.6 F 08/02/23 07:18 Pulse 87 08/02/23 07:18 Resp 18 08/02/23 07:18 BP 150/86 08/02/23 07:18 Pulse Ox 95 08/02/23 09:29 FiO2 40 07/23/23 02:57 Intake & Output 08/01/23 08/02/23 08/02/23 18:59 06:59 18:59 Intake Total 240 690 Output Total 2200 1300 Balance -1960 -610 Weight 99.6 kg 101.5 kg Intake: Intake, IV Titration 100 Amount Magnesium Sulfate-D5w Pmx 100 1 gm In Dextrose/Water 1 100ml.bag @ 100 mls/hr IVPB ONCE ONE Rx#: [id number] Oral 240 590 Output: Urine 2200 1300 Other: Voiding Method Indwelling Catheter Indwelling Catheter Indwelling Catheter # Bowel Movements 1 - Exam GENERAL EXAM: Alert, frail 88-year-old male, on 5 L nasal cannula, in no apparent distress. HEAD: Normocephalic. EYES: Normal reaction of pupils, equal size. NOSE: Clear with pink turbinates. THROAT: No erythema or exudates. NECK: No masses, no JVD. CHEST: No chest wall deformity. LUNGS: Equal air entry with crackles in the bilateral bases. CVS: S1 and S2 normal with no audible murmur, regular rhythm. ABDOMEN: No hepatosplenomegaly, normal bowel sounds, no guarding or rigidity. SPINE: No scoliosis or deformity SKIN: No rashes. Skin tears of the right upper extremity. CENTRAL NERVOUS SYSTEM: No focal deficits, tone is normal in all 4 extremities. EXTREMITIES: Multiple areas of ecchymosis. Left hip incision clean dry well- approximated there is no peripheral edema. No clubbing, no cyanosis. Radha pheral pulses are intact. - Labs CBC & Chem 7: 08/02/23 04:34 04/19/24 04:34 Labs: Abnormal Lab Results - Last 24 Hours (Table) 08/02/23 08/02/23 Range/Units 04:34 04:34 WBC 12.0 H (3.8-10.6) k/uL RBC 2.93 L (4.30-5.90) m/uL Hgb 8.1 L (13.0-17.5) gm/dL Hct 25.8 L (39.0-53.0) % RDW 17.1 H (11.5-15.5) % Sodium 134 L (137-145) mmol/L Potassium 3.4 L (3.5-5.1) mmol/L BUN 42 H (9-20) mg/dL Glucose 152 H (74-99) mg/dL Calcium 7.2 L (8.4-10.2) mg/dL Assessment and Plan Assessment: Acute hypoxemic respiratory failure, possibly multifactorial, secondary to acute COPD exacerbation and possible left-sided community-acquired pneumonia and left- sided pleural effusion, possibly parapneumonic. Possibility of a hospital-a cquired pathogen cannot be completely ruled out. Patient is currently on 5 L of oxygen nasal cannula and his repeat chest x-ray shows a continued pleural effusions and pulmonary edema Acute left lower lobe pneumonia, most likely bacterial infection and the patient procalcitonin level is also elevated. 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 Completed 10 days of vancomycin and Zosyn Acute leukocytosis, possibly secondary to above, recovered Left lower extremity DVT The ultrasound of the lower extremity on the left reveals chronic clot versus partially occlusive thrombus involving the long segment of the left lower extremity. Note that the patient was off his anticoagulants due to his frequent falls and anemia. IVC filter placed July 30, 2023 Frequent falls, with recent left hip femoral neck fracture, status/post left hip cemented unipolar hemiarthroplasty on 07/05/2023 History of fall with multiple left-sided rib fractures and pulmonary contusion History of paroxysmal atrial fibrillation, Eliquis has been stopped Acute on chronic kidney disease, creatinine is improved compared to yesterday the patient is recovering from his acute kidney injury Acute on top of chronic anemia with a drop in hemoglobin again at 6.1 on 07/31/2023, status post 3 units of packed RBCs this admission, current hemoglobin 8.4 History of thoracic level wound/cellulitis, isolated organism at that time was MRSA History of hyperlipidemia History of hypertension History of former tobacco dependence Chronic obstructive pulmonary disease History of alcoholism Hematuria Poor overall functional performance based on the above-mentioned multiple comorbidities Plan: The patient was seen and evaluated Chest x-ray, medications and labs reviewed Increase Lasix to 40 mg IV twice daily Continue bronchodilators, steroids Titrate down the FiO2 as tolerated Overall prognosis is guarded This patient was seen independently by the pulmonary nurse practitioner addressing pulmonary issues I have personally seen and examined the patient, performed the documentation and the assessment and plan as written. Number of minutes spent on the visit: 23.
[2023-08-03] MEDS: MAGNESIUM SULFATE-D5W PMX 1 GM in DEXTROSE/WATER 1 100ML.BAG IVPB SCH (05:29)
[2023-08-03 05:51] LABS: ALT 22 U/L (4-49); AST 20 U/L (17-59); African American GFR (CKD) 84 (>60 ml/min/1.73 sqM); Albumin 2.2 g/dL (3.5-5.0); Albumin/Globulin Ratio 0.9; Alkaline Phosphatase 81 U/L (38-126); Anion Gap 7 mmol/L; Blood Urea Nitrogen 38 mg/dL (9-20); Calcium 7.4 mg/dL (8.4-10.2); Carbon Dioxide 22 mmol/L (22-30); Chloride 103 mmol/L (98-107); Globulin 2.5 g/dL; Glucose 171 mg/dL (74-99); Non-African American GFR(CKD) 73 (>60 ml/min/1.73 sqM); Potassium 4.2 mmol/L (3.5-5.1); Sodium 132 mmol/L (137-145); Total Bilirubin 0.7 mg/dL (0.2-1.3); Total Protein 4.7 g/dL (6.3-8.2)
--- NOTE | 2023-08-03 06:06 | P.PN ---
Subjective Progress Note Date: 08/02/23 Patient is a 88-year-old male with a past medical history of hypertension, hyperlipidemia, paroxysmal atrial fibrillation coronary artery disease nonobstructive, mild cardiomyopathy ejection fraction 45-50 %, history of right tobacco smoker and left hip hemiarthroplasty on 07/05/2023 due to mechanical fa ll. Patient presented from nursing facility due to worsening shortness of breath/dyspnea. Patient was diagnosed with pneumonia and was started on doxycycline. He was placed on oxygen at 4 L via nasal cannula and EMS was called due to hypoxia with pulse ox down to 80% and patient was tachycardic and tachypneic. Patient was placed on BiPAP by EMS and was transferred to ER. Otherwise patient denies any complaints of chest pain. Cough with occasional sputum production. Tmax 101.0 on admission. Patient was recently admitted to due to acute blood loss anemia from 07/11/2023 to 07/12/2023. requiring 1 unit PRBC transfusion. Eliquis was held and was discharged back to group home facility for rehab. Chest x-ray showed chronic parenchymal changes with new small left pleural effusion and left lower lobe acute infiltrates/atelectasis. EKG showed sinus tachycardia with possible left atrial enlargement. Lower extremity venous duplex showed suboptimal study. Long segment left lower extremity DVT is present. Findings reflect chronic clot or partially occlusive thrombus. Correlate clinically. Mild to moderate diffuse subcutaneous edema is seen on images obtained. Laboratory data showed WBC 13.7 hemoglobin 8.9 and platelets 708, D-dimer 4.11 ABG showed pH 7.35 pCO2 39, pO2 183 Sodium 130 potassium 4.9 chloride 97 bicarb is 19 BUN 59 and creatinine 2.09 and blood sugar 106 and lactic acid 3.1 total bilirubin 3.5 and alk phos 268, proBNP 5700, troponin 0.027 and albumin 2.8 Influenza A, B, RSV and COVID-19 PCR not detected. 07/23/2023 Patient is seen and evaluated in follow-up. Patient was continued on BiPAP and is currently maintaining oxygen saturations above 90% on 3 L. Patient continues on IV heparin drip with left lower extremity DVT. VQ scan was ordered as jean t was unable to have CT of the chest for PE evaluation as kidney functions are elevated. Will hold on VQ scan for now as patient unable to tolerate lying flat. Continue IV heparin and will likely need to transition back to Eliquis. 07/24/2023 Patient is seen and evaluated in follow-up today with pulmonary following. Patient continues on 3 L via nasal cannula and has been off of the BiPAP. Fol low-up chest x-ray today shows increasing left lower lobe pleural effusion with associated atelectasis and/or infiltrate. Strongly encourage incentive spirometer although patient needs much encouragement as he is extremely weak and confused at times. Patient continues on IV heparin and will for now as there will be a follow-up chest x-ray in the a.m. and may require a thoracentesis with pulmonary following closely. Will discuss with pulmonary in regards to transitioning to Eliquis or if patient is appropriate for any further anticoagulation. Patient is afebrile with no reported chest pain or worsening shortness of breath. Patient is continued on IV steroids along with antibiotics and DuoNeb breathing treatments. Encouraged oral intake and recommend aspiration precautions with head of the bed elevated 45 degrees at all times. 07/25/2023 Patient is seen this morning currently asleep although arousable. Patient maintained on 3 L via nasal cannula with pulmonary following. Follow-up chest x-ray shows stable effusion and pulmonary reporting no plans for thoracentesis at this time. Patient was continued on IV heparin although will transition to oral Eliquis and monitor for any bleeding. There are no active signs of bleeding at this time although hemoglobin was noted to be 6.6 today. Will transfuse 1 unit of PRBC follow-up on repeat labs. Patient continues on antibiotics sided pneumonia. Patient is afebrile and denies any chest pain or palpitations. Patient has a congested cough and difficulty expectorating. Encouraged incentive spirometer use and sitting up more often. Continue with DuoNeb treatments at this time. 07/26/2023 Patient is seen and evaluated in follow-up status post 1 unit of PRBC. Hemoglobin is 7.4 today with no active bleeding noted. Patient continues on DuoNeb treatments and will continue on antibiotics with pulmonary following closely. 07/27/2023 Patient is currently lying in the bed. Awake alert. Still having shortness of breath and oxygen requirement at 3 L via nasal cannula. Patient is on antibiotics in the form of vancomycin and Zosyn. Nasal swab cultures positive for MRSA. Patient is also on IV Solu-Medrol 60 mg every 6 hourly and DuoNebs. Patient was started back on anticoagulation with heparin drip. Vascular surgery was consulted. DVT. Chest x-ray showed unchanged left pleural effusion with associated atelectasis or infiltrate. Laboratory data showed WBC 8.0 hemoglobin 8.1 and platelets 288 INR 1.3. FOBT negative. 07/28/2023 Patient is lying in the bed. Awake alert but lethargic and weak. And currently requiring 4 L oxygen via nasal cannula. Currently on heparin drip due to lower extremity DVT and also on IV antibiotics. Hemoglobin is fairly stable at 7.6. No hematuria noted. Patient is also being continued on IV Solu-Medrol and DuoNebs. Pulmonary is on board. Vascular surgery was consulted. Patient does have significant right upper extremity swelling with possible extravasation of the IV line. Duplex scan was ordered to rule DVT. Laboratory showed WBC 6.8 hemoglobin 7.6 and platelets 265 Sodium 139 potassium 3.5 chloride 110 bicarb is 23 BUN 53 and creatinine 1.24 and blood sugar 166. Calcium 8.0. 07/29/2023 Patient is seen in follow-up today with multiple medical consultations hilario bee. Patient is continued on 5 L via nasal cannula although 99% and discussed with nursing staff about weaning FiO2 as tolerated. Patient continues on IV heparin for lower extremity DVT and hemoglobin is stable above 7. No further hematuria noted. Vascular surgery consulted for possible IVC filter placement as patient is a poor candidate for anticoagulation. Patient continues with some right upper extremity swelling and DVT was ruled out, difficult to exclude a thrombus in the cephalic vein where an IV was placed. Continue with supportive care and elevating that extremity. Patient with significant weakness recommend PT/OT therapy daily. Patient will be returning to [facility] once cleared by consultations. Will await vascular surgery evaluation. Patient to continue on breathing inhalational treatments along with antibiotics and IV steroids. Pulmonary forest examiner following. 07/30/2023 Patient is seen and evaluated this morning currently scheduled to undergo IVC filter placement as patient has been having drops in hemoglobin with no specific bleeding noted. Hematuria has resolved and was brief as patient continues with indwelling Howard catheter and urine is clear. Patient was initiated back on IV heparin for acute DVT in the left lower extremity although having complications with reduced hemoglobin, vascular was consulted for IVC filter. Patient is not a good candidate for anticoagulation. Hemoglobin was 6.1 today and will transfuse 2 units with Lasix in between and consult GI and appreciate input and recommendations. Patient denies any bleeding or difficulties with tolerating diet. Per nursing staff patient has had bowel movements that are brown with no blood noted, no dark melanotic stools noted. Patient is continued on antibiotics with pulmonary following as well congested weak cough likely chronic. Will obtain a chest x-ray. 07/31/2023 Patient is seen in follow-up with multiple medical consultations following his IVC filter placement. Patient had significant electrolyte and hemoglobin abnormalities this morning and awaiting repeat labs as patient received 2 units yesterday and hemoglobin was noted to be 6.1 again today. Repeat labs ordered and pending. Patient with critically low potassium and magnesium also awaiting repeat and will replace per protocol. Patient denies any bleeding or pain. Patient is maintained on antibiotics with pulmonary following with concerns of pneumonia on admission. Patient tolerating diet and denies any nausea or vomiting. GI has been consulted with concerns of possible GI bleed. Cardiology will be consulted as well for CHF. Will initiate low-dose Lasix and follow-up on repeat labs in the a.m. 08/01/2023 Patient is seen in follow-up today and hemoglobin remained stable above 8 with no active bleeding noted. GI consulted with concerns of possible GI bleed as patient had continued drop in hemoglobin. Patient is off anticoagulation and status post IVC filter placement. Not a good candidate for anticoagulation. Iron studies ordered and within normal limits. Will follow-up with repeat chest x-ray as patient having some vascular congestion. Continue IV Lasix daily and follow-up with repeat labs. Replace electrolytes per protocol. Recommend aspiration precautions and having the head of the bed elevated 30 to 45 degrees at all times and supervision with meals. 08/02/2023 Patient is seen and evaluated in follow-up today with multiple medical consultations following. GI was consulted with concerns of possible GI bleed although no active bleeding noted and hemoglobin is stable above 8. Patient is status post IVC filter placement and not a candidate for anticoagulation. Cardiology following and patient has been maintained on IV Lasix which is increased to twice daily per pulmonary. Patient to follow-up with chest x-ray and also continue with breathing treatments. Antibiotics have been discontinued and patient has received adequate antibiotics during hospitalization. Patient being transition to oral prednisone. No plans of endoscopic intervention at this time and will follow-up in the outpatient setting as needed. Patient with significant weakness and per nursing staff bilateral heel wounds unstageable, present on admission and there is continued noted left foot drop. Per nursing staff patient is two-person max assist and was at [facility]CF post hip fracture. Plan is for returning to [facility] on discharge. Patient is afebrile and denies chest pain or shortness of breath. Patient has been tolerating diet and would recommend continuing with aspiration precautions. Review of systems: Constitutional: No reports of fatigue, fever, or chills Cardiovascular: No reports of chest pain or palpitations Respiratory: No reports of worsening shortness of breath, reports weak cough that is chronic GI: No reports of nausea, vomiting, or diarrhea : No reports of dysuria or retention, no further hematuria Neurovascular: reports of extreme generalized weakness All medications have been reviewed PHYSICAL EXAMINATION: Patient is sitting up in the chair., awake alert and oriented x 2, confused at times. Baseline. Currently on 4 L via nasal cannula, well-developed, thin b uilt, elderly appearing, ill-appearing HEENT: Normocephalic. Neck is supple. Pupils reactive. Nostrils clear. Oral cavity is moist. Neck reveals no JVD, carotid bruits, or thyromegaly. CHEST EXAMINATION: Trachea is central. Symmetrical expansion. Left basilar coarse sounds. Mild expiratory wheeze.. Crackles noted at the bases, bronchial congestion noted CARDIAC: S1, S2 are muffled ABDOMEN: Soft. Thin. Bowel sounds normal. No organomegaly. No abdominal bruits. Extremities: reveal no edema. No clubbing or cyanosis, bilateral lower extremity swelling worse on the left although improved since admission, foot drop noted on the left as well. Left hip surgical site has scabbing noted with no redness or drainage noted, healing well and approximated Neurologically awake, alert, oriented x 2-3. Diffusely weak Skin: No rash or skin lesions. Pale, bilateral heel unstageable ulcers noted Psychiatric: Cooperative. Could not be assessed completely Musculoskeletal: No joint swelling or deformity. Assessment: Acute hypoxemic respiratory failure due to left lower lobe pneumonia and left sided pleural effusion and COPD. Patient was requiring BiPAP on admission. Transitioned to nasal cannula, currently 4 L Acute on chronic congestive heart failure with systolic dysfunction Acute on chronic anemia, acute blood loss secondary to anticoagulation and hematuria Hematuria, possibly secondary to resumption of anticoagulation versus possible trauma as patient does occasionally pull at IVs and tubings. Resolved Sepsis secondary to pneumonia, bacterial, present on admission Acute left lower extremity DVT. Elevated D-dimer level. CT PE could not be done due to elevated creatinine level. Right upper extremity arm swelling, DVT ruled out, thrombus of the cephalic vein from an IV site Acute kidney injury likely prerenal with possible ATN. CKD stage III. Hypovolemic hyponatremia, secondary to poor oral intake Lactic acidosis 3.1 on admission, secondary to left lower lobe pneumonia, improved History of mechanical fall status post left hip cemented unipolar hemiarthroplasty on 07/05/2023 Recent admission with anemia requiring blood transfusion 1 unit PRBC. Paroxysmal atrial fibrillation, currently rate controlled status post IVC filter placement Nonischemic cardiomyopathy with ejection fraction 45 to 50%. EF improved to 55 to 60% as per recent echocardiogram on 07/05/2023 Coronary artery disease nonobstructive Bilateral heel unstageable ulcers, present on admission Hypertension Hyperlipidemia History of tobacco use History of EtOH abuse GI prophylaxis with PPI DVT prophylaxis, anticoagulant being held due to anemia, status post IVC filter placement No code Plan: Patient is being followed by multiple consultations maintained on 4 L via nasal cannula and oxygen saturation is 99%. Pulmonary following and has discontinued antibiotics and being transition to oral steroid taper. Patient will continue with breathing treatments Patient is status post IVC filter placement and hemoglobin is stable above 8 with no active bleeding noted currently off anticoagulation GI following and hemoglobin is stable with no active bleeding noted recommending outpatient follow-up with endoscopic if needed Patient will continue on IV Lasix twice daily and follow-up with repeat labs and replace electrolytes per protocol Magnesium low and will replace and follow-up on repeat labs in the a.m. patient is not a good candidate for anticoagulation given significant anemia and drop in hemoglobin along with recurrent frequent falls Patient with extensive cardiac history with cardiology following, concerns of acute CHF exacerbation and will continue IV Lasix twice daily. Follow-up on labs and replace electrolytes per protocol Recommend PT/OT therapy evaluation, case management following as patient will be returning to ECF on discharge Continue with wound care, consult to wound for unstageable ulcers noted on bilateral heels and appreciate input and recommendations Home medications reviewed and resumed as appropriate Patient having occasional periods of confusion and will continue Seroquel as needed at night low-dose in the event patient becomes agitated. Encouraged opening the shades and blinds to the windows and possibly sitting up out of the bed more often and frequent reorientation. Patient is no code. Family would like patient to get stronger and return to ECF. Not interested in hospice at this time Due to multiple complex medical issues, prognosis is guarded The impression and plan of care has been dictated by Akila Clemente, Nurse Practitioner as directed. Dr. Carrington MD I have performed a history and examination and MDM of this patient, discussed the same with the dictator, and agree with the dictator's assessment and plan as written ,documented as a scribe. Based on total visit time, I have performed more than 50% of the visit. Objective - Vital Signs Vital signs: Vital Signs Temp 97.6 F 08/02/23 07:18 Pulse 87 08/02/23 07:18 Resp 18 08/02/23 07:18 BP 150/86 08/02/23 07:18 Pulse Ox 95 08/02/23 09:29 FiO2 40 07/23/23 02:57 Intake & Output 08/01/23 08/02/23 08/02/23 18:59 06:59 18:59 Intake Total 240 690 Output Total 2200 1300 Balance -1960 -610 Weight 99.6 kg 101.5 kg Intake: Intake, IV Titration 100 Amount Magnesium Sulfate-D5w Pmx 100 1 gm In Dextrose/Water 1 100ml.bag @ 100 mls/hr IVPB ONCE ONE Rx#: [id number] Oral 240 590 Output: Urine 2200 1300 Other: Voiding Method Indwelling Catheter Indwelling Catheter # Bowel Movements 1 - Labs CBC & Chem 7: 08/02/23 04:34 08/03/23 04:51 Labs: Abnormal Lab Results - Last 24 Hours (Table) 08/02/23 08/02/23 Range/Units 04:34 04:34 WBC 12.0 H (3.8-10.6) k/uL RBC 2.93 L (4.30-5.90) m/uL Hgb 8.1 L (13.0-17.5) gm/dL Hct 25.8 L (39.0-53.0) % RDW 17.1 H (11.5-15.5) % Sodium 134 L (137-145) mmol/L Potassium 3.4 L (3.5-5.1) mmol/L BUN 42 H (9-20) mg/dL Glucose 152 H (74-99) mg/dL Calcium 7.2 L (8.4-10.2) mg/dL
[2023-08-03 09:37] LABS: Basophils # (A) 0.01 X 10*3/uL (0.00-0.10); Basophils % (A) 0.1 %; Eosinophils # (A) 0.01 X 10*3/uL (0.04-0.35); Eosinophils % (A) 0.1 %; HGB 8.1 g/dL (13.0-17.0); Lymphocytes # (A) 0.71 X 10*3/uL (0.90-5.00); Lymphocytes % (A) 6.4 %; MCH 28.2 pg (27.0-32.0); MCHC 31.2 g/dL (32.0-37.0); MCV 90.6 FL (80.0-97.0); Mean Platelet Volume 11.8 FL (9.5-12.2); Monocytes # (A) 2.11 X 10*3/uL (0.20-1.00); NRBC Per 100 WBC 0 X 10*3/uL (0.00-0.01); Neutrophils # (A) 8.12 X 10*3/uL (1.80-7.70); Neutrophils % (A) 73.1 %; Platelet Count 198 X 10*3/uL (140-440); RBC 2.87 X 10*6/uL (4.40-5.60)
--- NOTE | 2023-08-03 12:14 | P.PN ---
Subjective Progress Note Date: 08/03/23 Patient is an 88-year-old male with past medical history significant for hypertension, hyperlipidemia, paroxysmal atrial fibrillation previously anticoagulated on Eliquis, frequent falls. Patient recently fell from his wheelchair and had sustained a left hip fracture. He underwent a left hip cemented unipolar hemiarthroplasty on 07/05/2023. He was then discharged back to his extended care facility. Patient was sent back in from his ECF yesterday for evaluation of acute dyspnea. He was reportedly diagnosed with pneumonia earlier in the day, and started on doxycycline. When EMS arrived to the [facility], he was hypoxic with an SpO2 of less than 80%. He was also tachypneic and tachycardic and in respiratory distress. He was transferred to our facility on BiPAP. He is currently sitting up in bed, in some respiratory distress. On BiPAP with settings 12/6 and FiO2 of 100%. Respiratory rate is in the mid 30s and tidal volumes are greater than 800. He is unable to provide any information at this time. There is accessory muscle use. ABG done on above-mentioned settings showed a PaO2 of 183, pCO2 of 39, pH of 7.35. Chest x-ray shows a left lower lobe infiltrate and or atelectasis and small left-sided pleural effusion, possibly parapneumonic. CBC on arrival: WBC count of 30.7, hemoglobin 8.9, hematocrit 27.8, platelets 708. CMP on arrival: Sodium 130, potassium 4.9, chloride 97, serum bicarb 19, BUN 59, creatinine 2.09, glucose 106. Normal saline infusing at 130 MLS per hour. LFTs mildly elevated. Troponin 0.027. NT proBNP 5700. There is a component of acute on chronic kidney injury. Negative for influenza, RSV, COVID. Patient's D-dimer was elevated. For this reason a venous Doppler of the lower extremities was ordered, and the patient was found to have a left lower extremity DVT. Patient was previously anticoagulated on Eliquis, however, this has been stopped after his most recent fall and hip fracture. Left hip incision is approximated and clean and dry. No drainage. Hemoglobin is stable at 8.9 g/dL. Patient denies any bright red blood, melanotic stools, or hematemesis. Patient's respiratory status is currently labile, will continue to closely monitor. Patient may need transfer to the intensive care unit. In the emergency department and I had a lengthy discussion with the . The patient is currently on a BiPAP and is tolerating the BiPAP reasonably well with generation of adequate tidal volume above 500. No significant tachypnea. The patient is on a pressure setting of 12/6 and a meters of water and FiO2 has been weaned down.The white cell count from today is 29 with a hemoglobin of 7.6 and a platelet count of 527. Blood gases show a pH of 7.35 with a pCO2 of 39 and pO2 of 183 and this was on FiO2 of 100%. Viral screen has been negative and the procalcitonin level is at 4.2. BUN is at 69 with a creatinine of 2.09. Cultures were sent and the results are still pending for now. The chest x-ray showed a new area of consolidation of the left lower lobe in addition to a small left-sided pleural effusion. Ultrasound of the chest was also ordered and the results were consistent with a small left-sided pleural effusion with a 4.2 cm pocket. 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 Noted the patient was on anticoagulation with Eliquis in the past and this anticoagulation was discontinued because of his frequent falls. Noted the procalcitonin level is elevated at 4.2 On today's evaluation of 07/23/2023, seen the patient for a follow-up. The patient got moved out of the emergency department and the patient is currently on the medical floor. He was taken off the BiPAP this morning and the patient is currently on 2 L of O2 with a pulse ox of 98%. Alert awake and communicating. The white cell count is dropped down to 17.4 with a hemoglobin of 8.2 and a platelet count of 579. Hemodynamically stable. There is also interval improvement in the creatinine which is down to 1.43 with a BUN of 61. Sodium levels at 134. The patient remains on a combination of Zosyn and vancomycin. Remains on bronchodilators. Remains on IV Solu-Medrol 60 mg every 6 hours. The patient is also on IV heparin. PTT is therapeutic at this point in time. No evidence of any bleeding. Awake and alert and communicating. On today's evaluation of 07/24/2023, the patient is being seen for a follow-up. Clinically stable and the patient is currently on liters of oxygen by nasal cannula with a pulse ox of 94%. Repeat chest x-ray was done today and it shows some increase in the left lower lobe pleural effusion. There is also some infiltration/atelectasis. However clinically, the patient is stable. The patient is currently off the BiPAP. He has developed a small left-sided pleural effusion, likely parapneumonic in nature. Ultrasound of the chest was done yesterday showed a 4.2 cm pocket in the left lung. The WBC count is at 10.1 whi ch is improved with a hemoglobin of 7.7 slightly lower compared to yesterday with a platelet count of 537. Rest of the electrolytes are still pending. The patient remains on IV heparin. Remains on Zosyn and vancomycin coverage. No significant tachycardia. The patient is on DuoNeb updrafts. The patient on IV Solu-Medrol. The patient on Zosyn and vancomycin. The patient is on metoprolol 12.5 mg p.o. twice a day. On today's evaluation on 07/25/2023, the patient continues to improve. The white cell count is down to 7.8. The patient remains on 3 L of oxygen by nasal cannula. No significant respite distress. Repeat chest x-ray was done today and shows a stable left-sided pleural effusion that has not changed in size and the patient also has some stable infiltration of the left lung base consistent with pneumonia but small parapneumonic effusion. Hemoglobin is currently down to 6.6. The patient will be given a unit of packed RBC accordingly. Rest of the electrolytes show a creatinine of 1.33 with a BUN of 56 and a sodium levels at 138 with a potassium level of 4.1. The patient remains on IV heparin. He does have a DVT of the left lower extremity. No evidence of any GI bleeding at this point in time while being on IV heparin. On today's evaluation on 07/26/2023, the patient is being seen for a follow-up. The patient was given a unit of packed RBC yesterday and the hemoglobin is currently at 7.4. He is on oxygen 3 L with a pulse ox of 92%. He is lethargic and weak. Nevertheless denies having any significant shortness of breath. No chest pain. Remains on Zosyn and vancomycin. Nasal screen for MRSA was positive. Possibility of MRSA pneumonia cannot be completely excluded. The patient also developed a small parapneumonic effusion not amenable for thoracen tesis. He is a DNR/DNI CODE STATUS. Remains on bronchodilators. Remains on steroids. In addition, the patient is experiencing some hematuria at baseline and anticoagulation was stopped. Based on his high risk for anticoagulation and previous history of falls and concern for bleed, anticoagulation was placed on hold and vascular surgery was consulted for IVC filter placement. On today's evaluation, the patient is essentially unchanged remains on 3 L of oxygen by nasal cannula with a pulse ox of 97%. Chest x-ray was repeated this morning and the patient has an unchanged left-sided pleural effusion and left lower lobe consolidation. Remains on Zosyn and vancomycin. Labs from today shows a white cell count of 8 with a hemoglobin of 8 and a platelet count of 329. Electrolytes are within normal limits from yesterday. Creatinine is down to 1.2. No active hematuria and patient will be placed back on IV heparin pending vascular surgery consult 07/28/2023, patient is being seen for a follow-up. The patient is currently on oxygen at 4 L. Calm and comfortable. Noted frustrated. He is weak and quite debilitated at this point in time. He remains on Zosyn and vancomycin. He remains on IV heparin. No evidence of any hematuria. Howard catheter is in place. Hemoglobin is at 7.6. BUN is 53 with creatinine 1.24 levels at 139. Limited congested cough. No significant sputum production. He did encounter some swelling l upper extremity and a Doppler showed no evidence of any DVT in the right upper extremity. Nonocclusive thrombus was seen within the right cephalic vein. The patient is seen today July 29, 2023 in follow-up on the regular medical floor. He is currently sitting up in bed. Awake and alert in no acute distress. He is maintaining good O2 saturations in the upper 90s on 5 L/min per nasal cannula. He is afebrile. Hemodynamically stable. He remains on a heparin drip. Continued on bronchodilators and steroids. Antibiotics in the form of vancomycin and Zosyn. The patient is seen today July 30, 2023 in follow-up on the regular medical floor. He is awake and alert in no acute distress. He is maintaining O2 saturations in the 90s on 5 L/min per nasal cannula. White count 4.5. Hemoglobin 6.1. Platelets 173. Creatinine 1.24. He remains on a heparin drip. The plan is for IVC filter placement today. Packed red blood cell transfusion has been ordered. Remains on vancomycin and Zosyn. Continued on Flovent, albuterol, Spiriva. Remains on IV Solu-Medrol. The patient is seen today July 31, 2023 in follow-up on the regular medical floor. He is sitting up in bed. Awake and alert in no acute distress. Continuing to maintain O2 saturations in the 90s on 5 L/min per nasal cannula. He has been afebrile. Hemodynamically stable. He did go for IVC filter placement yesterday. Groin site is stable. Blood and sputum cultures revealed no growth. White count 6.6. Hemoglobin 6.1. Platelets 111. He is status post 3 units of packed red blood cells this admission. He remains on Serevent, Flovent, Spiriva. Remains on IV Solu-Medrol. Remains on antibiotics in the form of vancomycin and Zosyn. The patient is seen today August 01, 2023 in follow-up on the regular medical floor. He is awake and alert in no acute distress. Sitting up in bed having breakfast. Denies any worsening shortness of breath, cough or congestion. He is maintaining good O2 saturations in the upper 90s on 6 L/min per nasal cannula. He is afebrile. Hemodynamically stable. He is status post 3 units of packed red blood cells this admission. Blood culture revealed no growth. Sputum culture revealed no growth. White count 8.7. Hemoglobin 8.4. Platelets 155. Sodium 135. Potassium 3.6. Bicarb 21. BUN 48. Creatinine 1.17. Glucose 153. He remains on bronchodilators, steroids. Antibiotics in the form of vancomycin and Zosyn. The patient is seen today August 02, 2023 in follow-up on the regular medical floor. He is currently sitting up in bed. Awake and alert in no acute distress. He denies any worsening shortness of breath, cough or congestion. He is still requiring 5 L high flow nasal cannula to maintain O2 saturations in the 90s. His chest x-ray is showing evidence of increasing pulmonary edema. He is currently on Lasix 40 mg p.o. daily. He remains afebrile. Hemodynamically stable. He is status post 3 units of packed red blood cells this admission. Current hemoglobin 8.1. Platelets 179. White count 12.0. Sodium 134. Potassium 3.4. Bicarb 24. BUN 42. Creatinine 1.02. Glucose 152. He completed his course of antibiotics. The patient is seen today August 03, 2023 in follow-up on the regular medical floor. He is awake and alert in no acute distress. Denies any worsening shortness of breath, cough or congestion. He is on 4 L nasal cannula with O2 saturations in the 90s. His chest x-ray is showing bibasilar infiltrates. He does have some continued crackles in the bases more so on the left. He has less swelling in his feet and hands. He has diuresed over 2 L yesterday and again today. He remains on Lasix 40 mg IV every 12 hours. White count 11.1. Hemoglobin 8.1. Platelets 198. Sodium 132. Potassium 4.2. Bicarb 22. Creatinine 0.93. BUN 38. Glucose 171. He is continued on bronchodilators. Continued on prednisone taper. Objective - Vital Signs Vital signs: Vital Signs Temp 97.9 F 08/03/23 07:09 Pulse 86 08/03/23 10:39 Resp 16 08/03/23 10:39 BP 131/73 08/03/23 10:39 Pulse Ox 98 08/03/23 10:39 FiO2 40 07/23/23 02:57 Intake & Output 08/02/23 08/03/23 08/03/23 18:59 06:59 18:59 Intake Total 320 Output Total 500 1920 Balance -500 -1600 Intake: Intake, IV Titration 320 Amount Magnesium Sulfate-D5w Pmx 200 1 gm In Dextrose/Water 1 100ml.bag @ 100 mls/hr IVPB Q1H [facility] Rx#: [id number] Sodium Chloride 0.9% 500 120 ml 500 ml @ 0 mls/hr IV . [facility] Rx#: [id number] Output: Urine 500 1920 Other: Voiding Method Indwelling Catheter Indwelling Catheter # Bowel Movements 1 1 - Exam GENERAL EXAM: Alert, frail 88-year-old male, seen up in bed, on 4 L nasal cannula, in no apparent distress. HEAD: Normocephalic. EYES: Normal reaction of pupils, equal size. NOSE: Clear with pink turbinates. THROAT: No erythema or exudates. NECK: No masses, no JVD. CHEST: No chest wall deformity. LUNGS: Equal air entry with crackles in the bilateral bases, left greater than right. CVS: S1 and S2 normal with no audible murmur, regular rhythm. ABDOMEN: No hepatosplenomegaly, normal bowel sounds, no guarding or rigidity. SPINE: No scoliosis or deformity SKIN: No rashes. Skin tears of the right upper extremity. CENTRAL NERVOUS SYSTEM: No focal deficits, tone is normal in all 4 extremities. EXTREMITIES: Multiple areas of ecchymosis. Left hip incision clean dry well- approximated there is no peripheral edema. No clubbing, no cyanosis. Peripheral pulses are intact. - Labs CBC & Chem 7: 08/03/23 04:51 08/03/23 04:51 Labs: Abnormal Lab Results - Last 24 Hours (Table) 08/03/23 08/03/23 08/03/23 Range/Units 03:52 04:51 04:51 WBC 11.10 H (4.50-10.00) X 10*3/uL RBC 2.87 L (4.40-5.60) X 10*6/uL Hgb 8.1 L (13.0-17.0) g/dL Hct 26.0 L (39.6-50.0) % MCHC 31.2 L (32.0-37.0) g/dL RDW 18.0 H (11.5-14.5) % Immature Gran # 0.14 H (0.00-0.04) X 10*3/uL Neutrophils # 8.12 H (1.80-7.70) X 10*3/uL Lymphocytes # 0.71 L (0.90-5.00) X 10*3/uL Monocytes # 2.11 H (0.20-1.00) X 10*3/uL Eosinophils # 0.01 L (0.04-0.35) X 10*3/uL Sodium 132 L (137-145) mmol/L BUN 38 H (9-20) mg/dL Glucose 171 H (74-99) mg/dL Calcium 7.4 L (8.4-10.2) mg/dL Magnesium 1.4 L (1.6-2.3) mg/dL Total Protein 4.7 L (6.3-8.2) g/dL Albumin 2.2 L (3.5-5.0) g/dL Assessment and Plan Assessment: Acute hypoxemic respiratory failure, possibly multifactorial, secondary to acute COPD exacerbation and possible left-sided community-acquired pneumonia and left- sided pleural effusion, possibly parapneumonic. Possibility of a hospital- acquired pathogen cannot be completely ruled out. Patient is currently on 4 L of oxygen nasal cannula and his repeat chest x-ray shows a continued pleural effusions and pulmonary edema and remains on IV diuretics Acute left lower lobe pneumonia, most likely bacterial infection and the patient procalcitonin level is also elevated. 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 Completed 10 days of vancomycin and Zosyn Acute leukocytosis, possibly secondary to above, recovered Left lower extremity DVT The ultrasound of the lower extremity on the left reveals chronic clot versus partially occlusive thrombus involving the long segment of the left lower extremity. Note that the patient was off his anticoagulants due to his frequent falls and anemia. IVC filter placed July 30, 2023 Frequent falls, with recent left hip femoral neck fracture, status/post left hip cemented unipolar hemiarthroplasty on 07/05/2023 History of fall with multiple left-sided rib fractures and pulmonary contusion History of paroxysmal atrial fibrillation, Eliquis has been stopped Acute on chronic kidney disease, creatinine is improved compared to yesterday the patient is recovering from his acute kidney injury Acute on top of chronic anemia with a drop in hemoglobin again at 6.1 on 07/31/2023, status post 3 units of packed RBCs this admission, current hemoglobin 8.4 History of thoracic level wound/cellulitis, isolated organism at that time was MRSA History of hyperlipidemia History of hypertension History of former tobacco dependence Chronic obstructive pulmonary disease History of alcoholism Hematuria Poor overall functional performance based on the above-mentioned multiple comorbidities Plan: The patient was seen and evaluated Medications and labs reviewed Continue Lasix to 40 mg IV twice daily Continue bronchodilators, steroids Titrate down the FiO2 as tolerated Increase his activity as tolerated Plan is to return to [facility] at discharge This patient was seen independently by the pulmonary nurse practitioner addressing pulmonary issues I have personally seen and examined the patient, performed the documentation and the assessment and plan as written. Number of minutes spent on the visit: 24.
--- NOTE | 2023-08-03 15:00 | P.PN ---
Subjective Progress Note Date: 08/03/23 Principal diagnosis: Heart failure The patient is a pleasant 88-year-old gentleman with coronary artery disease and prior percutaneous revascularization as well' cardiomyopathy and also paroxysmal atrial fibrillation not on oral anticoagulation because of history of falling and bleeding as well as history of anemia as well as history of heart failure and hypertension and dyslipidemia and history of pulmonary embolism status post IVC filter placement as well as history of chronic obstructive pulmonary disease. The patient was admitted to the hospital with acute exacerbation of heart failure as well as COPD August 03, 2023 The patient was seen and evaluated this morning. He is feeling better but he still hypervolemic with bilateral lower extremities edema. Currently he is on Lasix IV which I would suggest to continue for additional 24 hours. His kidney function and electrolytes remained stable. No pain in the chest and no dizziness or lightheadedness. He has been maintaining normal sinus mechanism. The hemoglobin remains stable above 8 Assessment Acute hypoxic respiratory failure COPD exacerbation CHF exacerbation Coronary artery disease appears to be stable Cardiomyopathy Paroxysmal atrial fibrillation History of pulmonary embolism Multiple comorbid conditions Plan Continue the current medical regimen Continue IV Lasix for additional 24 hours Follow-up with the patient Objective - Vital Signs Vital signs: Vital Signs Temp 97.5 F L 08/03/23 12:08 Pulse 85 08/03/23 12:08 Resp 16 08/03/23 12:08 BP 125/76 08/03/23 12:08 Pulse Ox 94 L 08/03/23 12:08 FiO2 40 07/23/23 02:57 Intake & Output 08/02/23 08/03/23 08/03/23 18:59 06:59 18:59 Intake Total 320 Output Total 500 1920 Balance -500 -1600 Intake: Intake, IV Titration 320 Amount Magnesium Sulfate-D5w Pmx 200 1 gm In Dextrose/Water 1 100ml.bag @ 100 mls/hr IVPB Q1H [facility] Rx#: [id number] Sodium Chloride 0.9% 500 120 ml 500 ml @ 0 mls/hr IV . [facility] Rx#: [id number] Output: Urine 500 1920 Other: Voiding Method Indwelling Catheter Indwelling Catheter # Bowel Movements 1 1 - Labs CBC & Chem 7: 08/03/23 04:51 08/03/23 04:51 Labs: Abnormal Lab Results - Last 24 Hours (Table) 08/03/23 08/03/23 08/03/23 Range/Units 03:52 04:51 04:51 WBC 11.10 H (4.50-10.00) X 10*3/uL RBC 2.87 L (4.40-5.60) X 10*6/uL Hgb 8.1 L (13.0-17.0) g/dL Hct 26.0 L (39.6-50.0) % MCHC 31.2 L (32.0-37.0) g/dL RDW 18.0 H (11.5-14.5) % Immature Gran # 0.14 H (0.00-0.04) X 10*3/uL Neutrophils # 8.12 H (1.80-7.70) X 10*3/uL Lymphocytes # 0.71 L (0.90-5.00) X 10*3/uL Monocytes # 2.11 H (0.20-1.00) X 10*3/uL Eosinophils # 0.01 L (0.04-0.35) X 10*3/uL Sodium 132 L (137-145) mmol/L BUN 38 H (9-20) mg/dL Glucose 171 H (74-99) mg/dL Calcium 7.4 L (8.4-10.2) mg/dL Magnesium 1.4 L (1.6-2.3) mg/dL Total Protein 4.7 L (6.3-8.2) g/dL Albumin 2.2 L (3.5-5.0) g/dL
--- NOTE | 2023-08-04 03:04 | P.PN ---
Subjective Progress Note Date: 08/03/23 Patient is a 88-year-old male with a past medical history of hypertension, hyperlipidemia, paroxysmal atrial fibrillation coronary artery disease nonobstructive, mild cardiomyopathy ejection fraction 45-50 %, history of right tobacco smoker and left hip hemiarthroplasty on 07/05/2023 due to mechanical fa ll. Patient presented from nursing facility due to worsening shortness of breath/dyspnea. Patient was diagnosed with pneumonia and was started on doxycycline. He was placed on oxygen at 4 L via nasal cannula and EMS was called due to hypoxia with pulse ox down to 80% and patient was tachycardic and tachypneic. Patient was placed on BiPAP by EMS and was transferred to ER. Otherwise patient denies any complaints of chest pain. Cough with occasional sputum production. Tmax 101.0 on admission. Patient was recently admitted to due to acute blood loss anemia from 07/11/2023 to 07/12/2023. requiring 1 unit PRBC transfusion. Eliquis was held and was discharged back to senior living facility for rehab. Chest x-ray showed chronic parenchymal changes with new small left pleural effusion and left lower lobe acute infiltrates/atelectasis. EKG showed sinus tachycardia with possible left atrial enlargement. Lower extremity venous duplex showed suboptimal study. Long segment left lower extremity DVT is present. Findings reflect chronic clot or partially occlusive thrombus. Correlate clinically. Mild to moderate diffuse subcutaneous edema is seen on images obtained. Laboratory data showed WBC 13.7 hemoglobin 8.9 and platelets 708, D-dimer 4.11 ABG showed pH 7.35 pCO2 39, pO2 183 Sodium 130 potassium 4.9 chloride 97 bicarb is 19 BUN 59 and creatinine 2.09 and blood sugar 106 and lactic acid 3.1 total bilirubin 3.5 and alk phos 268, proBNP 5700, troponin 0.027 and albumin 2.8 Influenza A, B, RSV and COVID-19 PCR not detected. 07/23/2023 Patient is seen and evaluated in follow-up. Patient was continued on BiPAP and is currently maintaining oxygen saturations above 90% on 3 L. Patient continues on IV heparin drip with left lower extremity DVT. VQ scan was ordered as jean t was unable to have CT of the chest for PE evaluation as kidney functions are elevated. Will hold on VQ scan for now as patient unable to tolerate lying flat. Continue IV heparin and will likely need to transition back to Eliquis. 07/24/2023 Patient is seen and evaluated in follow-up today with pulmonary following. Patient continues on 3 L via nasal cannula and has been off of the BiPAP. Fol low-up chest x-ray today shows increasing left lower lobe pleural effusion with associated atelectasis and/or infiltrate. Strongly encourage incentive spirometer although patient needs much encouragement as he is extremely weak and confused at times. Patient continues on IV heparin and will for now as there will be a follow-up chest x-ray in the a.m. and may require a thoracentesis with pulmonary following closely. Will discuss with pulmonary in regards to transitioning to Eliquis or if patient is appropriate for any further anticoagulation. Patient is afebrile with no reported chest pain or worsening shortness of breath. Patient is continued on IV steroids along with antibiotics and DuoNeb breathing treatments. Encouraged oral intake and recommend aspiration precautions with head of the bed elevated 45 degrees at all times. 07/25/2023 Patient is seen this morning currently asleep although arousable. Patient maintained on 3 L via nasal cannula with pulmonary following. Follow-up chest x-ray shows stable effusion and pulmonary reporting no plans for thoracentesis at this time. Patient was continued on IV heparin although will transition to oral Eliquis and monitor for any bleeding. There are no active signs of bleeding at this time although hemoglobin was noted to be 6.6 today. Will transfuse 1 unit of PRBC follow-up on repeat labs. Patient continues on antibiotics sided pneumonia. Patient is afebrile and denies any chest pain or palpitations. Patient has a congested cough and difficulty expectorating. Encouraged incentive spirometer use and sitting up more often. Continue with DuoNeb treatments at this time. 07/26/2023 Patient is seen and evaluated in follow-up status post 1 unit of PRBC. Hemoglobin is 7.4 today with no active bleeding noted. Patient continues on DuoNeb treatments and will continue on antibiotics with pulmonary following closely. 07/27/2023 Patient is currently lying in the bed. Awake alert. Still having shortness of breath and oxygen requirement at 3 L via nasal cannula. Patient is on antibiotics in the form of vancomycin and Zosyn. Nasal swab cultures positive for MRSA. Patient is also on IV Solu-Medrol 60 mg every 6 hourly and DuoNebs. Patient was started back on anticoagulation with heparin drip. Vascular surgery was consulted. DVT. Chest x-ray showed unchanged left pleural effusion with associated atelectasis or infiltrate. Laboratory data showed WBC 8.0 hemoglobin 8.1 and platelets 288 INR 1.3. FOBT negative. 07/28/2023 Patient is lying in the bed. Awake alert but lethargic and weak. And currently requiring 4 L oxygen via nasal cannula. Currently on heparin drip due to lower extremity DVT and also on IV antibiotics. Hemoglobin is fairly stable at 7.6. No hematuria noted. Patient is also being continued on IV Solu-Medrol and DuoNebs. Pulmonary is on board. Vascular surgery was consulted. Patient does have significant right upper extremity swelling with possible extravasation of the IV line. Duplex scan was ordered to rule DVT. Laboratory showed WBC 6.8 hemoglobin 7.6 and platelets 265 Sodium 139 potassium 3.5 chloride 110 bicarb is 23 BUN 53 and creatinine 1.24 and blood sugar 166. Calcium 8.0. 07/29/2023 Patient is seen in follow-up today with multiple medical consultations hilario bee. Patient is continued on 5 L via nasal cannula although 99% and discussed with nursing staff about weaning FiO2 as tolerated. Patient continues on IV heparin for lower extremity DVT and hemoglobin is stable above 7. No further hematuria noted. Vascular surgery consulted for possible IVC filter placement as patient is a poor candidate for anticoagulation. Patient continues with some right upper extremity swelling and DVT was ruled out, difficult to exclude a thrombus in the cephalic vein where an IV was placed. Continue with supportive care and elevating that extremity. Patient with significant weakness recommend PT/OT therapy daily. Patient will be returning to [facility] once cleared by consultations. Will await vascular surgery evaluation. Patient to continue on breathing inhalational treatments along with antibiotics and IV steroids. Pulmonary dishwasher following. 07/30/2023 Patient is seen and evaluated this morning currently scheduled to undergo IVC filter placement as patient has been having drops in hemoglobin with no specific bleeding noted. Hematuria has resolved and was brief as patient continues with indwelling Howard catheter and urine is clear. Patient was initiated back on IV heparin for acute DVT in the left lower extremity although having complications with reduced hemoglobin, vascular was consulted for IVC filter. Patient is not a good candidate for anticoagulation. Hemoglobin was 6.1 today and will transfuse 2 units with Lasix in between and consult GI and appreciate input and recommendations. Patient denies any bleeding or difficulties with tolerating diet. Per nursing staff patient has had bowel movements that are brown with no blood noted, no dark melanotic stools noted. Patient is continued on antibiotics with pulmonary following as well congested weak cough likely chronic. Will obtain a chest x-ray. 07/31/2023 Patient is seen in follow-up with multiple medical consultations following his IVC filter placement. Patient had significant electrolyte and hemoglobin abnormalities this morning and awaiting repeat labs as patient received 2 units yesterday and hemoglobin was noted to be 6.1 again today. Repeat labs ordered and pending. Patient with critically low potassium and magnesium also awaiting repeat and will replace per protocol. Patient denies any bleeding or pain. Patient is maintained on antibiotics with pulmonary following with concerns of pneumonia on admission. Patient tolerating diet and denies any nausea or vomiting. GI has been consulted with concerns of possible GI bleed. Cardiology will be consulted as well for CHF. Will initiate low-dose Lasix and follow-up on repeat labs in the a.m. 08/01/2023 Patient is seen in follow-up today and hemoglobin remained stable above 8 with no active bleeding noted. GI consulted with concerns of possible GI bleed as patient had continued drop in hemoglobin. Patient is off anticoagulation and status post IVC filter placement. Not a good candidate for anticoagulation. Iron studies ordered and within normal limits. Will follow-up with repeat chest x-ray as patient having some vascular congestion. Continue IV Lasix daily and follow-up with repeat labs. Replace electrolytes per protocol. Recommend aspiration precautions and having the head of the bed elevated 30 to 45 degrees at all times and supervision with meals. 08/02/2023 Patient is seen and evaluated in follow-up today with multiple medical consultations following. GI was consulted with concerns of possible GI bleed although no active bleeding noted and hemoglobin is stable above 8. Patient is status post IVC filter placement and not a candidate for anticoagulation. Cardiology following and patient has been maintained on IV Lasix which is increased to twice daily per pulmonary. Patient to follow-up with chest x-ray and also continue with breathing treatments. Antibiotics have been discontinued and patient has received adequate antibiotics during hospitalization. Patient being transition to oral prednisone. No plans of endoscopic intervention at this time and will follow-up in the outpatient setting as needed. Patient with significant weakness and per nursing staff bilateral heel wounds unstageable, present on admission and there is continued noted left foot drop. Per nursing staff patient is two-person max assist and was at ECF post hip fracture. Plan is for returning to ECF on discharge. Patient is afebrile and denies chest pain or shortness of breath. Patient has been tolerating diet and would recommend continuing with aspiration precautions. 08/03/2023 Patient is evaluated today currently sitting up in the chair reports some improvements in shortness of breath. Patient is continued on breathing inhalational treatments and has been transition to oral prednisone. Patient has completed a course of antibiotics and being closely monitored off antibiotic therapy. Continue current regimen including IV Lasix for an additional 24 hours and will follow-up on repeat labs and possibly transition to oral Lasix. Cardiology following as well. Currently off anticoagulation and hemoglobin remained stable above 8.1. Review of systems: Constitutional: No reports of fatigue, fever, or chills Cardiovascular: No reports of chest pain or palpitations Respiratory: No reports of worsening shortness of breath, reports weak cough that is chronic GI: No reports of nausea, vomiting, or diarrhea : No reports of dysuria or retention, no further hematuria Neurovascular: reports of extreme generalized weakness All medications have been reviewed PHYSICAL EXAMINATION: Patient is sitting up in the chair., awake alert and oriented x 2, Baseline. Currently on 4 L via nasal cannula, well-developed, thin built, elderly appearing, ill-appearing HEENT: Normocephalic. Neck is supple. Pupils reactive. Nostrils clear. Oral cavity is moist. Neck reveals no JVD, carotid bruits, or thyromegaly. CHEST EXAMINATION: Trachea is central. Symmetrical expansion. Left basilar coarse sounds. Mild expiratory wheeze.. Crackles noted at the bases, bronchial congestion noted with minimal improvement CARDIAC: S1, S2 are muffled ABDOMEN: Soft. Thin. Bowel sounds normal. No organomegaly. No abdominal bruits. Extremities: reveal no edema. No clubbing or cyanosis, bilateral lower extremity swelling improving , foot drop noted on the left as well. Left hip surgical site has scabbing noted with no redness or drainage noted, healing well and approximated Neurologically awake, alert, oriented x 2-3. Diffusely weak Skin: No rash or skin lesions. Pale, bilateral heel unstageable ulcers noted Psychiatric: Cooperative. Could not be assessed completely Musculoskeletal: No joint swelling or deformity. Assessment: Acute hypoxemic respiratory failure due to left lower lobe pneumonia and left sided pleural effusion and COPD. Patient was requiring BiPAP on admission. Transitioned to nasal cannula, currently 4 L Acute on chronic congestive heart failure with systolic dysfunction Acute on chronic anemia, acute blood loss secondary to anticoagulation and hematuria Hematuria, possibly secondary to resumption of anticoagulation versus possible trauma as patient does occasionally pull at IVs and tubings. Resolved Sepsis secondary to pneumonia, bacterial, present on admission Acute left lower extremity DVT. Elevated D-dimer level. CT PE could not be done due to elevated creatinine level. Right upper extremity arm swelling, DVT ruled out, thrombus of the cephalic vein from an IV site Acute kidney injury likely prerenal with possible ATN. CKD stage III. Hypovolemic hyponatremia, secondary to poor oral intake Lactic acidosis 3.1 on admission, secondary to left lower lobe pneumonia, improved History of mechanical fall status post left hip cemented unipolar hemiarthroplasty on 07/05/2023 Recent admission with anemia requiring blood transfusion 1 unit PRBC. Paroxysmal atrial fibrillation, currently rate controlled status post IVC filter placement Nonischemic cardiomyopathy with ejection fraction 45 to 50%. EF improved to 55 to 60% as per recent echocardiogram on 07/05/2023 Coronary artery disease nonobstructive Bilateral heel unstageable ulcers, present on admission Hypertension Hyperlipidemia History of tobacco use History of EtOH abuse GI prophylaxis with PPI DVT prophylaxis, anticoagulant being held due to anemia, status post IVC filter placement No code Plan: Patient is being followed by multiple consultations maintained on 4 L via nasal cannula and oxygen saturation is 99%. Pulmonary following and has discontinued antibiotics and has been transitioned to oral steroid taper. Patient will continue with breathing treatments Patient is status post IVC filter placement and hemoglobin is stable above 8 with no active bleeding noted currently off anticoagulation GI has evaluated the patient and hemoglobin is stable with no active bleeding noted recommending outpatient follow-up with endoscopic if needed Patient will continue on IV Lasix twice daily and follow-up with repeat labs and replace electrolytes per protocol. Cardiology following and will likely transition to oral Lasix in the next 24 hours Magnesium low and will replace and follow-up on repeat labs in the a.m. patient is not a good candidate for anticoagulation given significant anemia and drop in hemoglobin along with recurrent frequent falls Patient with extensive cardiac history with cardiology following, concerns of acute CHF exacerbation and will continue IV Lasix twice daily. Follow-up on labs and replace electrolytes per protocol Recommend PT/OT therapy evaluation, case management following as patient will be returning to ECF on discharge Continue with wound care, consult to wound for unstageable ulcers noted on bilateral heels and appreciate input and recommendations Home medications reviewed and resumed as appropriate Recommend sitting up in the chair more often and up and out of the bed at least 3 times daily Patient is no code. Family would like patient to get stronger and return to ECF. Not interested in hospice at this time Possible discharge planning Saturday or Saturday to ECF. Due to multiple complex medical issues, prognosis is guarded The impression and plan of care has been dictated by Akila Clemente, Nurse Practitioner as directed. Dr. Carrington MD I have performed a history and examination and MDM of this patient, discussed the same with the dictator, and agree with the dictator's assessment and plan as written ,documented as a scribe. Based on total visit time, I have performed more than 50% of the visit. Objective - Vital Signs Vital signs: Vital Signs Temp 97.6 F 08/03/23 18:52 Pulse 75 08/03/23 18:52 Resp 18 08/03/23 18:52 BP 123/66 08/03/23 18:52 Pulse Ox 96 08/03/23 18:52 FiO2 40 07/23/23 02:57 Intake & Output 08/03/23 08/03/23 08/04/23 06:59 18:59 06:59 Intake Total 320 Output Total 1919 2149 1300 Balance -1600 -215 -1300 Intake: Intake, IV Titration 320 Amount Magnesium Sulfate-D5w Pmx 200 1 gm In Dextrose/Water 1 100ml.bag @ 100 mls/hr IVPB Q1H [facility] Rx#: [id number] Sodium Chloride 0.9% 500 120 ml 500 ml @ 0 mls/hr IV . [facility] Rx#: [id number] Output: Urine 1919 2149 1300 Other: Voiding Method Indwelling Catheter Indwelling Catheter # Bowel Movements 1 - Labs CBC & Chem 7: 08/03/23 04:51 08/03/23 04:51 Labs: Abnormal Lab Results - Last 24 Hours (Table) 08/03/23 08/03/23 08/03/23 Range/Units 03:52 04:51 04:51 WBC 11.10 H (4.50-10.00) X 10*3/uL RBC 2.87 L (4.40-5.60) X 10*6/uL Hgb 8.1 L (13.0-17.0) g/dL Hct 26.0 L (39.6-50.0) % MCHC 31.2 L (32.0-37.0) g/dL RDW 18.0 H (11.5-14.5) % Immature Gran # 0.14 H (0.00-0.04) X 10*3/uL Neutrophils # 8.12 H (1.80-7.70) X 10*3/uL Lymphocytes # 0.71 L (0.90-5.00) X 10*3/uL Monocytes # 2.11 H (0.20-1.00) X 10*3/uL Eosinophils # 0.01 L (0.04-0.35) X 10*3/uL Sodium 132 L (137-145) mmol/L BUN 38 H (9-20) mg/dL Glucose 171 H (74-99) mg/dL Calcium 7.4 L (8.4-10.2) mg/dL Magnesium 1.4 L (1.6-2.3) mg/dL Total Protein 4.7 L (6.3-8.2) g/dL Albumin 2.2 L (3.5-5.0) g/dL
[2023-08-04 09:24] LABS: Basophils # (A) 0.01 X 10*3/uL (0.00-0.10); Basophils % (A) 0.1 %; Eosinophils # (A) 0.02 X 10*3/uL (0.04-0.35); Eosinophils % (A) 0.1 %; HGB 8.7 g/dL (13.0-17.0); Lymphocytes # (A) 1.01 X 10*3/uL (0.90-5.00); Lymphocytes % (A) 6.5 %; MCH 28.2 pg (27.0-32.0); MCHC 31.1 g/dL (32.0-37.0); MCV 90.6 FL (80.0-97.0); Mean Platelet Volume 11.5 FL (9.5-12.2); Monocytes # (A) 3.75 X 10*3/uL (0.20-1.00); Monocytes % (A) 24.2 %; NRBC Per 100 WBC 0 X 10*3/uL (0.00-0.01); Neutrophils # (A) 10.53 X 10*3/uL (1.80-7.70); Neutrophils % (A) 67.9 %; Platelet Count 217 X 10*3/uL (140-440); RBC 3.09 X 10*6/uL (4.40-5.60); RDW 18.2 % (11.5-14.5); WBC 15.51 X 10*3/uL (4.50-10.00)
[2023-08-04 10:13] LABS: Magnesium 1.7 mg/dL (1.5-2.4)
[2023-08-04 10:56] LABS: BUN/Creat Ratio 30.82 Ratio (12.00-20.00); Blood Urea Nitrogen 33.9 mg/dL (9.0-27.0); Calcium 7.6 mg/dL (8.7-10.3); Carbon Dioxide 24.9 mmol/L (21.6-31.8); Chloride 100 mmol/L (96-109); Glucose 139 mg/dL (70-110); Potassium 4.6 mmol/L (3.5-5.5); Sodium 135 mmol/L (135-145)
--- NOTE | 2023-08-04 13:14 | P.PN ---
Subjective Progress Note Date: 08/04/23 Patient is an 88-year-old male with past medical history significant for hypertension, hyperlipidemia, paroxysmal atrial fibrillation previously anticoagulated on Eliquis, frequent falls. Patient recently fell from his wheelchair and had sustained a left hip fracture. He underwent a left hip cemented unipolar hemiarthroplasty on 07/05/2023. He was then discharged back to his extended care facility. Patient was sent back in from his ECF yesterday for evaluation of acute dyspnea. He was reportedly diagnosed with pneumonia earlier in the day, and started on doxycycline. When EMS arrived to the [facility], he was hypoxic with an SpO2 of less than 80%. He was also tachypneic and tachycardic and in respiratory distress. He was transferred to our facility on BiPAP. He is currently sitting up in bed, in some respiratory distress. On BiPAP with settings 12/6 and FiO2 of 100%. Respiratory rate is in the mid 30s and tidal volumes are greater than 800. He is unable to provide any information at this time. There is accessory muscle use. ABG done on above-mentioned settings showed a PaO2 of 183, pCO2 of 39, pH of 7.35. Chest x-ray shows a left lower lobe infiltrate and or atelectasis and small left-sided pleural effusion, possibly parapneumonic. CBC on arrival: WBC count of 30.7, hemoglobin 8.9, hematocrit 27.8, platelets 708. CMP on arrival: Sodium 130, potassium 4.9, chloride 97, serum bicarb 19, BUN 59, creatinine 2.09, glucose 106. Normal saline infusing at 130 MLS per hour. LFTs mildly elevated. Troponin 0.027. NT proBNP 5700. There is a component of acute on chronic kidney injury. Negative for influenza, RSV, COVID. Patient's D-dimer was elevated. For this reason a venous Doppler of the lower extremities was ordered, and the patient was found to have a left lower extremity DVT. Patient was previously anticoagulated on Eliquis, however, this has been stopped after his most recent fall and hip fracture. Left hip incision is approximated and clean and dry. No drainage. Hemoglobin is stable at 8.9 g/dL. Patient denies any bright red blood, melanotic stools, or hematemesis. Patient's respiratory status is currently labile, will continue to closely monitor. Patient may need transfer to the intensive care unit. In the emergency department and I had a lengthy discussion with the . The patient is currently on a BiPAP and is tolerating the BiPAP reasonably well with generation of adequate tidal volume above 500. No significant tachypnea. The patient is on a pressure setting of 12/6 and a meters of water and FiO2 has been weaned down.The white cell count from today is 29 with a hemoglobin of 7.6 and a platelet count of 527. Blood gases show a pH of 7.35 with a pCO2 of 39 and pO2 of 183 and this was on FiO2 of 100%. Viral screen has been negative and the procalcitonin level is at 4.2. BUN is at 69 with a creatinine of 2.09. Cultures were sent and the results are still pending for now. The chest x-ray showed a new area of consolidation of the left lower lobe in addition to a small left-sided pleural effusion. Ultrasound of the chest was also ordered and the results were consistent with a small left-sided pleural effusion with a 4.2 cm pocket. 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 Noted the patient was on anticoagulation with Eliquis in the past and this anticoagulation was discontinued because of his frequent falls. Noted the procalcitonin level is elevated at 4.2 On today's evaluation of 07/23/2023, seen the patient for a follow-up. The patient got moved out of the emergency department and the patient is currently on the medical floor. He was taken off the BiPAP this morning and the patient is currently on 2 L of O2 with a pulse ox of 98%. Alert awake and communicating. The white cell count is dropped down to 17.4 with a hemoglobin of 8.2 and a platelet count of 579. Hemodynamically stable. There is also interval improvement in the creatinine which is down to 1.43 with a BUN of 61. Sodium levels at 134. The patient remains on a combination of Zosyn and vancomycin. Remains on bronchodilators. Remains on IV Solu-Medrol 60 mg every 6 hours. The patient is also on IV heparin. PTT is therapeutic at this point in time. No evidence of any bleeding. Awake and alert and communicating. On today's evaluation of 07/24/2023, the patient is being seen for a follow-up. Clinically stable and the patient is currently on liters of oxygen by nasal cannula with a pulse ox of 94%. Repeat chest x-ray was done today and it shows some increase in the left lower lobe pleural effusion. There is also some infiltration/atelectasis. However clinically, the patient is stable. The patient is currently off the BiPAP. He has developed a small left-sided pleural effusion, likely parapneumonic in nature. Ultrasound of the chest was done yesterday showed a 4.2 cm pocket in the left lung. The WBC count is at 10.1 whi ch is improved with a hemoglobin of 7.7 slightly lower compared to yesterday with a platelet count of 537. Rest of the electrolytes are still pending. The patient remains on IV heparin. Remains on Zosyn and vancomycin coverage. No significant tachycardia. The patient is on DuoNeb updrafts. The patient on IV Solu-Medrol. The patient on Zosyn and vancomycin. The patient is on metoprolol 12.5 mg p.o. twice a day. On today's evaluation on 07/25/2023, the patient continues to improve. The white cell count is down to 7.8. The patient remains on 3 L of oxygen by nasal cannula. No significant respite distress. Repeat chest x-ray was done today and shows a stable left-sided pleural effusion that has not changed in size and the patient also has some stable infiltration of the left lung base consistent with pneumonia but small parapneumonic effusion. Hemoglobin is currently down to 6.6. The patient will be given a unit of packed RBC accordingly. Rest of the electrolytes show a creatinine of 1.33 with a BUN of 56 and a sodium levels at 138 with a potassium level of 4.1. The patient remains on IV heparin. He does have a DVT of the left lower extremity. No evidence of any GI bleeding at this point in time while being on IV heparin. On today's evaluation on 07/26/2023, the patient is being seen for a follow-up. The patient was given a unit of packed RBC yesterday and the hemoglobin is currently at 7.4. He is on oxygen 3 L with a pulse ox of 92%. He is lethargic and weak. Nevertheless denies having any significant shortness of breath. No chest pain. Remains on Zosyn and vancomycin. Nasal screen for MRSA was positive. Possibility of MRSA pneumonia cannot be completely excluded. The patient also developed a small parapneumonic effusion not amenable for thoracen tesis. He is a DNR/DNI CODE STATUS. Remains on bronchodilators. Remains on steroids. In addition, the patient is experiencing some hematuria at baseline and anticoagulation was stopped. Based on his high risk for anticoagulation and previous history of falls and concern for bleed, anticoagulation was placed on hold and vascular surgery was consulted for IVC filter placement. On today's evaluation, the patient is essentially unchanged remains on 3 L of oxygen by nasal cannula with a pulse ox of 97%. Chest x-ray was repeated this morning and the patient has an unchanged left-sided pleural effusion and left lower lobe consolidation. Remains on Zosyn and vancomycin. Labs from today shows a white cell count of 8 with a hemoglobin of 8 and a platelet count of 329. Electrolytes are within normal limits from yesterday. Creatinine is down to 1.2. No active hematuria and patient will be placed back on IV heparin pending vascular surgery consult 07/28/2023, patient is being seen for a follow-up. The patient is currently on oxygen at 4 L. Calm and comfortable. Noted frustrated. He is weak and quite debilitated at this point in time. He remains on Zosyn and vancomycin. He remains on IV heparin. No evidence of any hematuria. Howard catheter is in place. Hemoglobin is at 7.6. BUN is 53 with creatinine 1.24 levels at 139. Limited congested cough. No significant sputum production. He did encounter some swelling l upper extremity and a Doppler showed no evidence of any DVT in the right upper extremity. Nonocclusive thrombus was seen within the right cephalic vein. The patient is seen today July 29, 2023 in follow-up on the regular medical floor. He is currently sitting up in bed. Awake and alert in no acute distress. He is maintaining good O2 saturations in the upper 90s on 5 L/min per nasal cannula. He is afebrile. Hemodynamically stable. He remains on a heparin drip. Continued on bronchodilators and steroids. Antibiotics in the form of vancomycin and Zosyn. The patient is seen today July 30, 2023 in follow-up on the regular medical floor. He is awake and alert in no acute distress. He is maintaining O2 saturations in the 90s on 5 L/min per nasal cannula. White count 4.5. Hemoglobin 6.1. Platelets 173. Creatinine 1.24. He remains on a heparin drip. The plan is for IVC filter placement today. Packed red blood cell transfusion has been ordered. Remains on vancomycin and Zosyn. Continued on Flovent, albuterol, Spiriva. Remains on IV Solu-Medrol. The patient is seen today July 31, 2023 in follow-up on the regular medical floor. He is sitting up in bed. Awake and alert in no acute distress. Continuing to maintain O2 saturations in the 90s on 5 L/min per nasal cannula. He has been afebrile. Hemodynamically stable. He did go for IVC filter placement yesterday. Groin site is stable. Blood and sputum cultures revealed no growth. White count 6.6. Hemoglobin 6.1. Platelets 111. He is status post 3 units of packed red blood cells this admission. He remains on Serevent, Flovent, Spiriva. Remains on IV Solu-Medrol. Remains on antibiotics in the form of vancomycin and Zosyn. The patient is seen today August 01, 2023 in follow-up on the regular medical floor. He is awake and alert in no acute distress. Sitting up in bed having breakfast. Denies any worsening shortness of breath, cough or congestion. He is maintaining good O2 saturations in the upper 90s on 6 L/min per nasal cannula. He is afebrile. Hemodynamically stable. He is status post 3 units of packed red blood cells this admission. Blood culture revealed no growth. Sputum culture revealed no growth. White count 8.7. Hemoglobin 8.4. Platelets 155. Sodium 135. Potassium 3.6. Bicarb 21. BUN 48. Creatinine 1.17. Glucose 153. He remains on bronchodilators, steroids. Antibiotics in the form of vancomycin and Zosyn. The patient is seen today August 02, 2023 in follow-up on the regular medical floor. He is currently sitting up in bed. Awake and alert in no acute distress. He denies any worsening shortness of breath, cough or congestion. He is still requiring 5 L high flow nasal cannula to maintain O2 saturations in the 90s. His chest x-ray is showing evidence of increasing pulmonary edema. He is currently on Lasix 40 mg p.o. daily. He remains afebrile. Hemodynamically stable. He is status post 3 units of packed red blood cells this admission. Current hemoglobin 8.1. Platelets 179. White count 12.0. Sodium 134. Potassium 3.4. Bicarb 24. BUN 42. Creatinine 1.02. Glucose 152. He completed his course of antibiotics. The patient is seen today August 03, 2023 in follow-up on the regular medical floor. He is awake and alert in no acute distress. Denies any worsening shortness of breath, cough or congestion. He is on 4 L nasal cannula with O2 saturations in the 90s. His chest x-ray is showing bibasilar infiltrates. He does have some continued crackles in the bases more so on the left. He has less swelling in his feet and hands. He has diuresed over 2 L yesterday and again today. He remains on Lasix 40 mg IV every 12 hours. White count 11.1. Hemoglobin 8.1. Platelets 198. Sodium 132. Potassium 4.2. Bicarb 22. Creatinine 0.93. BUN 38. Glucose 171. He is continued on bronchodilators. Continued on prednisone taper. The patient is seen today August 04, 2023 in follow-up on the regular medical floor. He is sitting up in bed having lunch. Denies any worsening shortness of breath, cough or congestion. No chest pain or palpitations. He is continued on Lasix 40 mg every 12 hours. Remains on bronchodilators. Maintain O2 saturation in the 90s on 4 L/min per nasal cannula. He has received 3 units of packed red blood cells this admission. Current hemoglobin 8.7. Platelets 217. White count 15.5. Sodium 135. Potassium 4.6. Bicarb 25. BUN 34. Creatinine 1.1. Glucose 139. He is currently in a -3.7 L balance. Objective - Vital Signs Vital signs: Vital Signs Temp 97.6 F 08/04/23 12:35 Pulse 71 08/04/23 12:35 Resp 19 08/04/23 12:35 BP 128/70 08/04/23 12:35 Pulse Ox 96 08/04/23 12:35 FiO2 40 07/23/23 02:57 Intake & Output 08/03/23 08/04/23 08/04/23 18:59 06:59 18:59 Intake Total 110 Output Total 2150 1700 825 Balance -2150 -1590 -825 Weight 100.5 kg Intake: Intake, IV Titration 110 Amount Sodium Chloride 0.9% 500 110 ml 500 ml @ 0 mls/hr IV . [employer] ONE Rx#: [id number] Output: Urine 2150 1700 825 Other: Voiding Method Indwelling Catheter # Bowel Movements 2 1 - Exam GENERAL EXAM: Alert, oriented, pleasant, frail 88-year-old male, on 4 L nasal cannula, in no apparent distress. HEAD: Normocephalic. EYES: Normal reaction of pupils, equal size. NOSE: Clear with pink turbinates. THROAT: No erythema or exudates. NECK: No masses, no JVD. CHEST: No chest wall deformity. LUNGS: Equal air entry with crackles in the bilateral bases, left greater than right. CVS: S1 and S2 normal with no audible murmur, regular rhythm. ABDOMEN: No hepatosplenomegaly, normal bowel sounds, no guarding or rigidity. SPINE: No scoliosis or deformity SKIN: No rashes. Skin tears of the right upper extremity. CENTRAL NERVOUS SYSTEM: No focal deficits, tone is normal in all 4 extremities. EXTREMITIES: Multiple areas of ecchymosis. Left hip incision clean dry well- approximated there is no peripheral edema. No clubbing, no cyanosis. Peripheral pulses are intact. - Labs CBC & Chem 7: 08/04/23 06:01 08/04/23 06:06 Labs: Abnormal Lab Results - Last 24 Hours (Table) 08/04/23 08/04/23 Range/Units 06:01 06:06 WBC 15.51 H (4.50-10.00) X 10*3/uL RBC 3.09 L (4.40-5.60) X 10*6/uL Hgb 8.7 L (13.0-17.0) g/dL Hct 28.0 L (39.6-50.0) % MCHC 31.1 L (32.0-37.0) g/dL RDW 18.2 H (11.5-14.5) % Immature Gran # 0.19 H (0.00-0.04) X 10*3/uL Neutrophils # 10.53 H (1.80-7.70) X 10*3/uL Monocytes # 3.75 H (0.20-1.00) X 10*3/uL Eosinophils # 0.02 L (0.04-0.35) X 10*3/uL BUN 33.9 H (9.0-27.0) mg/dL BUN/Creatinine Ratio 30.82 H (12.00-20.00) Ratio Glucose 139 H (70-110) mg/dL Calcium 7.6 L (8.7-10.3) mg/dL Assessment and Plan Assessment: Acute hypoxemic respiratory failure, possibly multifactorial, secondary to acute COPD exacerbation and possible left-sided community-acquired pneumonia and left- sided pleural effusion, possibly parapneumonic. Possibility of a hospital- acquired pathogen cannot be completely ruled out. Patient is currently on 4 L of oxygen nasal cannula and his repeat chest x-ray shows a continued pleural effusions and pulmonary edema and remains on IV diuretics Acute left lower lobe pneumonia, most likely bacterial infection and the patient procalcitonin level is also elevated. 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 Completed 10 days of vancomycin and Zosyn Acute leukocytosis, possibly secondary to above, recovered Left lower extremity DVT The ultrasound of the lower extremity on the left reveals chronic clot versus partially occlusive thrombus involving the long segment of the left lower extremity. Note that the patient was off his anticoagulants due to his frequent falls and anemia. IVC filter placed July 30, 2023 Frequent falls, with recent left hip femoral neck fracture, status/post left hip cemented unipolar hemiarthroplasty on 07/05/2023 History of fall with multiple left-sided rib fractures and pulmonary contusion History of paroxysmal atrial fibrillation, Eliquis has been stopped Acute on chronic kidney disease, creatinine is improved compared to yesterday the patient is recovering from his acute kidney injury Acute on top of chronic anemia with a drop in hemoglobin again at 6.1 on 07/31/2023, status post 3 units of packed RBCs this admission, current hemoglobin 8.7 History of thoracic level wound/cellulitis, isolated organism at that time was MRSA History of hyperlipidemia History of hypertension History of former tobacco dependence Chronic obstructive pulmonary disease History of alcoholism Hematuria Poor overall functional performance based on the above-mentioned multiple comorbidities Plan: The patient was seen and evaluated Medications and labs reviewed Continue the current treatment plan Follow-up chest x-ray in a.m. Plan is to return to [facility] at discharge This patient was seen independently by the pulmonary nurse practitioner domingo sandoval pulmonary issues I have personally seen and examined the patient, performed the documentation and the assessment and plan as written. Number of minutes spent on the visit: 23.
--- NOTE | 2023-08-04 15:27 | P.PN ---
Subjective Progress Note Date: 08/04/23 Principal diagnosis: Heart failure The patient is a pleasant 88-year-old gentleman with coronary artery disease and prior percutaneous revascularization as well' cardiomyopathy and also paroxysmal atrial fibrillation not on oral anticoagulation because of history of falling and bleeding as well as history of anemia as well as history of heart failure and hypertension and dyslipidemia and history of pulmonary embolism status post IVC filter placement as well as history of chronic obstructive pulmonary disease. The patient was admitted to the hospital with acute exacerbation of heart failure as well as COPD August 03, 2023 The patient was seen and evaluated this morning. He is feeling better but he still hypervolemic with bilateral lower extremities edema. Currently he is on Lasix IV which I would suggest to continue for additional 24 hours. His kidney function and electrolytes remained stable. No pain in the chest and no dizziness or lightheadedness. He has been maintaining normal sinus mechanism. The hemoglobin remains stable above 8 August 04, 2023 The patient was seen and evaluated this afternoon. He continues to be hypervolemic. He continues to be on Lasix IV which I would suggest continue for additional 24 hours. Creatinine remains stable. Hemoglobin remains stable. The examination revealed regular rhythm with a distant heart sounds and dimi nished breathing sounds bilaterally and bilateral lower extremities edema noted as well. I would suggest continue the current medical regimen and continue Lasix IV at this point Assessment Acute hypoxic respiratory failure COPD exacerbation CHF exacerbation Coronary artery disease appears to be stable Cardiomyopathy Paroxysmal atrial fibrillation History of pulmonary embolism Multiple comorbid conditions Plan Continue the current medical regimen Continue IV Lasix for additional 24 hours Continue monitoring the kidney function and electrolytes and hemoglobin Follow-up with the patient Objective - Vital Signs Vital signs: Vital Signs Temp 97.6 F 08/04/23 12:35 Pulse 71 08/04/23 12:35 Resp 19 08/04/23 12:35 BP 128/70 08/04/23 12:35 Pulse Ox 96 08/04/23 12:35 FiO2 40 07/23/23 02:57 Intake & Output 08/03/23 08/04/23 08/04/23 18:59 06:59 18:59 Intake Total 110 Output Total 2150 1700 825 Balance -7584 -8337 -829 Weight 100.5 kg 74 kg Intake: Intake, IV Titration 110 Amount Sodium Chloride 0.9% 500 110 ml 500 ml @ 0 mls/hr IV . [employer] ONE Rx#: [id number] Output: Urine 4353 1700 825 Other: Voiding Method Indwelling Catheter # Bowel Movements 2 1 - Labs CBC & Chem 7: 08/04/23 06:01 08/04/23 06:06 Labs: Abnormal Lab Results - Last 24 Hours (Table) 08/04/23 08/04/23 Range/Units 06:01 06:06 WBC 15.51 H (4.50-10.00) X 10*3/uL RBC 3.09 L (4.40-5.60) X 10*6/uL Hgb 8.7 L (13.0-17.0) g/dL Hct 28.0 L (39.6-50.0) % MCHC 31.1 L (32.0-37.0) g/dL RDW 18.2 H (11.5-14.5) % Immature Gran # 0.19 H (0.00-0.04) X 10*3/uL Neutrophils # 10.53 H (1.80-7.70) X 10*3/uL Monocytes # 3.75 H (0.20-1.00) X 10*3/uL Eosinophils # 0.02 L (0.04-0.35) X 10*3/uL BUN 33.9 H (9.0-27.0) mg/dL BUN/Creatinine Ratio 30.82 H (12.00-20.00) Ratio Glucose 139 H (70-110) mg/dL Calcium 7.6 L (8.7-10.3) mg/dL
--- NOTE | 2023-08-04 15:28 | P.PN ---
Subjective Progress Note Date: 08/04/23 Patient is a 88-year-old male with a past medical history of hypertension, hyperlipidemia, paroxysmal atrial fibrillation coronary artery disease nonobstructive, mild cardiomyopathy ejection fraction 45-50 %, history of right tobacco smoker and left hip hemiarthroplasty on 07/05/2023 due to mechanical fa ll. Patient presented from nursing facility due to worsening shortness of breath/dyspnea. Patient was diagnosed with pneumonia and was started on doxycycline. He was placed on oxygen at 4 L via nasal cannula and EMS was called due to hypoxia with pulse ox down to 80% and patient was tachycardic and tachypneic. Patient was placed on BiPAP by EMS and was transferred to ER. Otherwise patient denies any complaints of chest pain. Cough with occasional sputum production. Tmax 101.0 on admission. Patient was recently admitted to due to acute blood loss anemia from 07/11/2023 to 07/12/2023. requiring 1 unit PRBC transfusion. Eliquis was held and was discharged back to long term facility for rehab. Chest x-ray showed chronic parenchymal changes with new small left pleural effusion and left lower lobe acute infiltrates/atelectasis. EKG showed sinus tachycardia with possible left atrial enlargement. Lower extremity venous duplex showed suboptimal study. Long segment left lower extremity DVT is present. Findings reflect chronic clot or partially occlusive thrombus. Correlate clinically. Mild to moderate diffuse subcutaneous edema is seen on images obtained. Laboratory data showed WBC 13.7 hemoglobin 8.9 and platelets 708, D-dimer 4.11 ABG showed pH 7.35 pCO2 39, pO2 183 Sodium 130 potassium 4.9 chloride 97 bicarb is 19 BUN 59 and creatinine 2.09 and blood sugar 106 and lactic acid 3.1 total bilirubin 3.5 and alk phos 268, proBNP 5700, troponin 0.027 and albumin 2.8 Influenza A, B, RSV and COVID-19 PCR not detected. 07/23/2023 Patient is seen and evaluated in follow-up. Patient was continued on BiPAP and is currently maintaining oxygen saturations above 90% on 3 L. Patient continues on IV heparin drip with left lower extremity DVT. VQ scan was ordered as jean t was unable to have CT of the chest for PE evaluation as kidney functions are elevated. Will hold on VQ scan for now as patient unable to tolerate lying flat. Continue IV heparin and will likely need to transition back to Eliquis. 07/24/2023 Patient is seen and evaluated in follow-up today with pulmonary following. Patient continues on 3 L via nasal cannula and has been off of the BiPAP. Fol low-up chest x-ray today shows increasing left lower lobe pleural effusion with associated atelectasis and/or infiltrate. Strongly encourage incentive spirometer although patient needs much encouragement as he is extremely weak and confused at times. Patient continues on IV heparin and will for now as there will be a follow-up chest x-ray in the a.m. and may require a thoracentesis with pulmonary following closely. Will discuss with pulmonary in regards to transitioning to Eliquis or if patient is appropriate for any further anticoagulation. Patient is afebrile with no reported chest pain or worsening shortness of breath. Patient is continued on IV steroids along with antibiotics and DuoNeb breathing treatments. Encouraged oral intake and recommend aspiration precautions with head of the bed elevated 45 degrees at all times. 07/25/2023 Patient is seen this morning currently asleep although arousable. Patient maintained on 3 L via nasal cannula with pulmonary following. Follow-up chest x-ray shows stable effusion and pulmonary reporting no plans for thoracentesis at this time. Patient was continued on IV heparin although will transition to oral Eliquis and monitor for any bleeding. There are no active signs of bleeding at this time although hemoglobin was noted to be 6.6 today. Will transfuse 1 unit of PRBC follow-up on repeat labs. Patient continues on antibiotics sided pneumonia. Patient is afebrile and denies any chest pain or palpitations. Patient has a congested cough and difficulty expectorating. Encouraged incentive spirometer use and sitting up more often. Continue with DuoNeb treatments at this time. 07/26/2023 Patient is seen and evaluated in follow-up status post 1 unit of PRBC. Hemoglobin is 7.4 today with no active bleeding noted. Patient continues on DuoNeb treatments and will continue on antibiotics with pulmonary following closely. 07/27/2023 Patient is currently lying in the bed. Awake alert. Still having shortness of breath and oxygen requirement at 3 L via nasal cannula. Patient is on antibiotics in the form of vancomycin and Zosyn. Nasal swab cultures positive for MRSA. Patient is also on IV Solu-Medrol 60 mg every 6 hourly and DuoNebs. Patient was started back on anticoagulation with heparin drip. Vascular surgery was consulted. DVT. Chest x-ray showed unchanged left pleural effusion with associated atelectasis or infiltrate. Laboratory data showed WBC 8.0 hemoglobin 8.1 and platelets 288 INR 1.3. FOBT negative. 07/28/2023 Patient is lying in the bed. Awake alert but lethargic and weak. And currently requiring 4 L oxygen via nasal cannula. Currently on heparin drip due to lower extremity DVT and also on IV antibiotics. Hemoglobin is fairly stable at 7.6. No hematuria noted. Patient is also being continued on IV Solu-Medrol and DuoNebs. Pulmonary is on board. Vascular surgery was consulted. Patient does have significant right upper extremity swelling with possible extravasation of the IV line. Duplex scan was ordered to rule DVT. Laboratory showed WBC 6.8 hemoglobin 7.6 and platelets 265 Sodium 139 potassium 3.5 chloride 110 bicarb is 23 BUN 53 and creatinine 1.24 and blood sugar 166. Calcium 8.0. 07/29/2023 Patient is seen in follow-up today with multiple medical consultations hilario bee. Patient is continued on 5 L via nasal cannula although 99% and discussed with nursing staff about weaning FiO2 as tolerated. Patient continues on IV heparin for lower extremity DVT and hemoglobin is stable above 7. No further hematuria noted. Vascular surgery consulted for possible IVC filter placement as patient is a poor candidate for anticoagulation. Patient continues with some right upper extremity swelling and DVT was ruled out, difficult to exclude a thrombus in the cephalic vein where an IV was placed. Continue with supportive care and elevating that extremity. Patient with significant weakness recommend PT/OT therapy daily. Patient will be returning to [facility] once cleared by consultations. Will await vascular surgery evaluation. Patient to continue on breathing inhalational treatments along with antibiotics and IV steroids. Pulmonary paper roller following. 07/30/2023 Patient is seen and evaluated this morning currently scheduled to undergo IVC filter placement as patient has been having drops in hemoglobin with no specific bleeding noted. Hematuria has resolved and was brief as patient continues with indwelling Howard catheter and urine is clear. Patient was initiated back on IV heparin for acute DVT in the left lower extremity although having complications with reduced hemoglobin, vascular was consulted for IVC filter. Patient is not a good candidate for anticoagulation. Hemoglobin was 6.1 today and will transfuse 2 units with Lasix in between and consult GI and appreciate input and recommendations. Patient denies any bleeding or difficulties with tolerating diet. Per nursing staff patient has had bowel movements that are brown with no blood noted, no dark melanotic stools noted. Patient is continued on antibiotics with pulmonary following as well congested weak cough likely chronic. Will obtain a chest x-ray. 07/31/2023 Patient is seen in follow-up with multiple medical consultations following his IVC filter placement. Patient had significant electrolyte and hemoglobin abnormalities this morning and awaiting repeat labs as patient received 2 units yesterday and hemoglobin was noted to be 6.1 again today. Repeat labs ordered and pending. Patient with critically low potassium and magnesium also awaiting repeat and will replace per protocol. Patient denies any bleeding or pain. Patient is maintained on antibiotics with pulmonary following with concerns of pneumonia on admission. Patient tolerating diet and denies any nausea or vomiting. GI has been consulted with concerns of possible GI bleed. Cardiology will be consulted as well for CHF. Will initiate low-dose Lasix and follow-up on repeat labs in the a.m. 08/01/2023 Patient is seen in follow-up today and hemoglobin remained stable above 8 with no active bleeding noted. GI consulted with concerns of possible GI bleed as patient had continued drop in hemoglobin. Patient is off anticoagulation and status post IVC filter placement. Not a good candidate for anticoagulation. Iron studies ordered and within normal limits. Will follow-up with repeat chest x-ray as patient having some vascular congestion. Continue IV Lasix daily and follow-up with repeat labs. Replace electrolytes per protocol. Recommend aspiration precautions and having the head of the bed elevated 30 to 45 degrees at all times and supervision with meals. 08/02/2023 Patient is seen and evaluated in follow-up today with multiple medical consultations following. GI was consulted with concerns of possible GI bleed although no active bleeding noted and hemoglobin is stable above 8. Patient is status post IVC filter placement and not a candidate for anticoagulation. Cardiology following and patient has been maintained on IV Lasix which is increased to twice daily per pulmonary. Patient to follow-up with chest x-ray and also continue with breathing treatments. Antibiotics have been discontinued and patient has received adequate antibiotics during hospitalization. Patient being transition to oral prednisone. No plans of endoscopic intervention at this time and will follow-up in the outpatient setting as needed. Patient with significant weakness and per nursing staff bilateral heel wounds unstageable, present on admission and there is continued noted left foot drop. Per nursing staff patient is two-person max assist and was at [facility] post hip fracture. Plan is for returning to [facility] on discharge. Patient is afebrile and denies chest pain or shortness of breath. Patient has been tolerating diet and would recommend continuing with aspiration precautions. 08/03/2023 Patient is evaluated today currently sitting up in the chair reports some improvements in shortness of breath. Patient is continued on breathing inhalational treatments and has been transition to oral prednisone. Patient has completed a course of antibiotics and being closely monitored off antibiotic therapy. Continue current regimen including IV Lasix for an additional 24 hours and will follow-up on repeat labs and possibly transition to oral Lasix. Cardiology following as well. Currently off anticoagulation and hemoglobin remained stable above 8.1. 08/04/2023 Patient is seen in follow-up today being watched off antibiotic therapy currently maintained on 4 L of oxygen maintaining oxygen saturations above 95%. Patient continued on treatments and has been transition to Lasix daily and will follow-up with repeat chest x-ray in a.m. Patient with significant weakness needs to be reevaluated by physical therapy and discuss further with case management/social work regarding discharge planning as patient will be returning to [facility]. Patient is afebrile and denies chest pain or shortness of breath. Hemoglobin is stable status post IVC filter placement. Review of systems: Constitutional: No reports of fatigue, fever, or chills Cardiovascular: No reports of chest pain or palpitations Respiratory: No reports of worsening shortness of breath, reports weak cough dipak t is chronic GI: No reports of nausea, vomiting, or diarrhea : No reports of dysuria or retention, no further hematuria Neurovascular: reports of extreme generalized weakness All medications have been reviewed PHYSICAL EXAMINATION: Patient is sitting up in the chair., awake alert and oriented x 2, Baseline. Currently on 4 L via nasal cannula, well-developed, thin built, elderly appearing, ill-appearing HEENT: Normocephalic. Neck is supple. Pupils reactive. Nostrils clear. Oral cavity is moist. Neck reveals no JVD, carotid bruits, or thyromegaly. CHEST EXAMINATION: Trachea is central. Symmetrical expansion. Left basilar coarse sounds. Mild expiratory wheeze.. Crackles noted at the bases, bronchial congestion noted with minimal improvement CARDIAC: S1, S2 are muffled ABDOMEN: Soft. Thin. Bowel sounds normal. No organomegaly. No abdominal bruits. Extremities: reveal no edema. No clubbing or cyanosis, bilateral lower extremity swelling improving , foot drop noted on the left as well. Left hip surgical site has scabbing noted with no redness or drainage noted, healing well and approximated Neurologically awake, alert, oriented x 2-3. Diffusely weak Skin: No rash or skin lesions. Pale, bilateral heel unstageable ulcers noted Psychiatric: Cooperative. Could not be assessed completely Musculoskeletal: No joint swelling or deformity. Assessment: Acute on chronic hypoxemic respiratory failure due to left lower lobe pneumonia and left sided pleural effusion and COPD. Patient was requiring BiPAP on admission. Transitioned to nasal cannula, currently 4 L. Patient was chronically wearing 2 to 3 L outpatient. Acute on chronic congestive heart failure with systolic dysfunction Acute on chronic anemia, acute blood loss secondary to anticoagulation and hematuria Hematuria, possibly secondary to resumption of anticoagulation versus possible trauma as patient does occasionally pull at IVs and tubings. Resolved Sepsis secondary to pneumonia, bacterial, present on admission Acute left lower extremity DVT. Elevated D-dimer level. CT PE could not be done due to elevated creatinine level. Right upper extremity arm swelling, DVT ruled out, thrombus of the cephalic vein from an IV site Acute kidney injury likely prerenal with possible ATN. CKD stage III. Hypovolemic hyponatremia, secondary to poor oral intake Lactic acidosis 3.1 on admission, secondary to left lower lobe pneumonia, improved History of mechanical fall status post left hip cemented unipolar hemiarthroplasty on 07/05/2023 Recent admission with anemia requiring blood transfusion 1 unit PRBC. Paroxysmal atrial fibrillation, currently rate controlled status post IVC filter placement Nonischemic cardiomyopathy with ejection fraction 45 to 50%. EF improved to 55 to 60% as per recent echocardiogram on 07/05/2023 Coronary artery disease nonobstructive Bilateral heel unstageable ulcers, present on admission Hypertension Hyperlipidemia History of tobacco use History of EtOH abuse GI prophylaxis with PPI DVT prophylaxis, anticoagulant being held due to anemia, status post IVC filter placement No code Plan: Patient is being followed by multiple consultations maintained on 4 L via nasal cannula and oxygen saturation is 99%. Pulmonary following and has discontinued antibiotics and has been transitioned to oral steroid taper. Patient will continue with breathing treatments. Follow-up chest x-ray ordered for a.m. Patient is status post IVC filter placement and hemoglobin is stable above 8 with no active bleeding noted currently off anticoagulation GI has evaluated the patient and hemoglobin is stable with no active bleeding noted recommending outpatient follow-up with endoscopic if needed Patient will continue on IV Lasix twice daily and follow-up with repeat labs and replace electrolytes per protocol. Cardiology following and will likely transition to oral Lasix in the next 24 hours patient is not a good candidate for anticoagulation given significant anemia and drop in hemoglobin along with recurrent frequent falls Patient with extensive cardiac history with cardiology following, concerns of acute CHF exacerbation and will continue IV Lasix twice daily. Follow-up on labs and replace electrolytes per protocol Recommend PT/OT therapy evaluation, case management following as patient will be returning to ECF on discharge Continue with wound care, consult to wound for unstageable ulcers noted on bilateral heels and appreciate input and recommendations Home medications reviewed and resumed as appropriate Recommend sitting up in the chair more often and up and out of the bed at least 3 times daily Patient is no code. Family would like patient to get stronger and return to ECF. Not interested in hospice at this time Possible discharge planning Saturday or Saturday to ECF. Due to multiple complex medical issues, prognosis is guarded The impression and plan of care has been dictated by Akila Celmente, Nurse Practitioner as directed. Dr. Carrington MD I have performed a history and examination and MDM of this patient, discussed the same with the dictator, and agree with the dictator's assessment and plan as written ,documented as a scribe. Based on total visit time, I have performed more than 50% of the visit. Objective - Vital Signs Vital signs: Vital Signs Temp 97.6 F 08/04/23 12:35 Pulse 71 08/04/23 12:35 Resp 19 08/04/23 12:35 BP 128/70 08/04/23 12:35 Pulse Ox 96 08/04/23 12:35 FiO2 40 07/23/23 02:57 Intake & Output 08/03/23 08/04/23 08/04/23 18:59 06:59 18:59 Intake Total 110 Output Total 2150 1700 825 Balance -2150 -1590 -825 Weight 100.5 kg 74 kg Intake: Intake, IV Titration 110 Amount Sodium Chloride 0.9% 500 110 ml 500 ml @ 0 mls/hr IV . [facility] Rx#: [id number] Output: Urine 2150 1700 825 Other: Voiding Method Indwelling Catheter # Bowel Movements 2 1 - Labs CBC & Chem 7: 08/04/23 06:01 08/04/23 06:06 Labs: Abnormal Lab Results - Last 24 Hours (Table) 08/04/23 08/04/23 Range/Units 06:01 06:06 WBC 15.51 H (4.50-10.00) X 10*3/uL RBC 3.09 L (4.40-5.60) X 10*6/uL Hgb 8.7 L (13.0-17.0) g/dL Hct 28.0 L (39.6-50.0) % MCHC 31.1 L (32.0-37.0) g/dL RDW 18.2 H (11.5-14.5) % Immature Gran # 0.19 H (0.00-0.04) X 10*3/uL Neutrophils # 10.53 H (1.80-7.70) X 10*3/uL Monocytes # 3.75 H (0.20-1.00) X 10*3/uL Eosinophils # 0.02 L (0.04-0.35) X 10*3/uL BUN 33.9 H (9.0-27.0) mg/dL BUN/Creatinine Ratio 30.82 H (12.00-20.00) Ratio Glucose 139 H (70-110) mg/dL Calcium 7.6 L (8.7-10.3) mg/dL
[2023-08-04] MEDS ORDERED: Magnesium Replacement Protocol 1 EACH MISC MISCELLANE PRN (15:32)
[2023-08-04] MEDS: MAGNESIUM SULFATE-D5W PMX 1 GM in DEXTROSE/WATER 1 100ML.BAG IVPB ONE (16:06)
[2023-08-04] MEDS: ZINC OXIDE PASTE (Z-GUARD) 1 APPLIC TOPICAL PRN (20:39)
[2023-08-05] MEDS: ACETAMINOPHEN TAB 325 MG TAB PO PRN (07:00)
--- NOTE | 2023-08-05 10:58 | XR ---
EXAMINATION TYPE: XR chest 1V portable DATE OF EXAM: 08/05/2023 HISTORY: Shortness of breath. COMPARISON: 08/01/2023 TECHNIQUE: Single view of the chest is submitted. FINDINGS: Demonstrated are scattered senescent parenchymal change. Pulmonary venous congestion with mild interstitial edema suggested. Bilateral pleural effusions are s lightly smaller in size. Overall appearance is slightly improved. The heart is stable. Hilar and mediastinal structures are within normal limits. Degenerative changes are seen of the dorsal spine. IMPRESSION: 1. Pulmonary venous congestion with mild interstitial edema suggested. Bilateral pleural effusions a re slightly smaller in size. Overall appearance is slightly improved.
--- NOTE | 2023-08-05 11:20 | P.PN ---
Subjective HISTORY OF PRESENT ILLNESS: The patient is a pleasant 88-year-old gentleman with coronary artery disease and prior percutaneous revascularization as well' cardiomyopathy and also paroxysmal atrial fibrillation not on oral anticoagulation because of history of falling and bleeding as well as history of anemia as well as history of heart failure and hypertension and dyslipidemia and history of pulmonary embolism status post IVC filter placement as well as history of chronic obstructive pulmonary disease. The patient was admitted to the hospital with acute exacerbation of heart failure as well as COPD August 03, 2023 The patient was seen and evaluated this morning. He is feeling better but he still hypervolemic with bilateral lower extremities edema. Currently he is on Lasix IV which I would suggest to continue for additional 24 hours. His kidney function and electrolytes remained stable. No pain in the chest and no dizziness or lightheadedness. He has been maintaining normal sinus mechanism. The hemoglobin remains stable above 8 August 04, 2023 The patient was seen and evaluated this afternoon. He continues to be hypervole trae. He continues to be on Lasix IV which I would suggest continue for additional 24 hours. Creatinine remains stable. Hemoglobin remains stable. The examination revealed regular rhythm with a distant heart sounds and diminished breathing sounds bilaterally and bilateral lower extremities edema noted as well. I would suggest continue the current medical regimen and continue Lasix IV at this point August 05, 2023 Patient examined this morning at the bedside. Patient currently denies chest p ain or pressure. He denies shortness of breath. He remains on IV Lasix. Vital signs are stable. PHYSICAL EXAM: VITAL SIGNS: Reviewed. GENERAL: Well-developed in no acute distress. NECK: Supple. No JVD or thyromegaly LUNGS: Respirations even and unlabored. Lungs essentially clear to auscultation bilaterally. HEART: Regular rate and rhythm. S1 and S2 heard. EXTREMITIES: Normal range of motion. No clubbing or cyanosis. Peripheral pulses intact. No lower extremity edema ASSESSMENT: Acute hypoxic respiratory failure COPD exacerbation CHF exacerbation Coronary artery disease appears to be stable Cardiomyopathy Paroxysmal atrial fibrillation History of pulmonary embolism Multiple comorbid conditions PLAN: Discontinue IV Lasix Begin oral Lasix 40 mg daily Continue additional cardiac medications Patient is stable from a cardiac standpoint with no further inpatient recommendations We will sign off. Please reconsult if needed. Nurse practitioner note has been reviewed by physician. Signing provider agrees with the documented findings, assessment, and plan of care documented by SNUBBER as a scribe. Objective - Vital Signs Vital signs: Vital Signs Temp 97.6 F 08/05/23 06:54 Pulse 69 08/05/23 06:54 Resp 18 08/05/23 06:54 BP 121/57 08/05/23 06:54 Pulse Ox 94 L 08/05/23 08:57 FiO2 40 07/23/23 02:57 Intake & Output 08/04/23 08/05/23 08/05/23 18:59 06:59 18:59 Intake Total 200 Output Total 1450 1999 Balance -1450 -1800 Weight 74 kg 73 kg Intake: Oral 200 Output: Urine 1450 1999 Other: Voiding Method Indwelling Catheter Indwelling Catheter # Bowel Movements 1 1 - Labs CBC & Chem 7: 08/04/23 06:01 08/04/23 06:06
[2023-08-05 11:25] LABS: African American GFR (CKD) 73 (>60 ml/min/1.73 sqM); Anion Gap 0 mmol/L; Blood Urea Nitrogen 35 mg/dL (9-20); Calcium 7.6 mg/dL (8.4-10.2); Carbon Dioxide 31 mmol/L (22-30); Chloride 97 mmol/L (98-107); Glucose 136 mg/dL (74-99); Non-African American GFR(CKD) 63 (>60 ml/min/1.73 sqM); Sodium 128 mmol/L (137-145)
--- NOTE | 2023-08-05 11:37 | P.CONS ---
History of Present Illness - Reason for Consult Consult date: 08/05/23 wound care - History of Present Illness This is an 88-year-old patient being seen on [address] for unstageable pressure ulcers to the right and left heel. Patient has a unstageable pressure ulcer to the right heel measuring approximately 6 x 5 x 0 point once centimeters. Patient has blistering ecchymosis and eschar noted to the site. Left ulceration is a stage II ulceration with eschar minimal granulation slough and nonviable tissue present. Ulceration measures approximately 4 x 4 x 0.2 cm Review Of Systems: Constitutional: No fever, no chills, no night sweats. No weight change. No weakness, fatigue or lethargy. No daytime sleepiness. Integumentary:reports wounds, no lesions. No rash or pruritus. No unusual brui sing. No change in hair or nails. Physical exam: General Appearance: Alert, cooperative, no distress, appears stated age. Skin: See HPI all other Skin color, texture, tugor normal, no rashes or lesions. Neurologic: Alert oriented x3 Assessment: 1. Unstageable pressure ulcer right heel 2. Stage II pressure ulcer left heel Plan: 1. Apply honey gel and bordered foam to bilateral heel ulcerations, change Saturday. Utilize offloading boots. Patient would benefit from advanced wound care and wound care setting. We have happy to see him upon discharge. Thank you for the consultation any questions please contact the wound care center DNP note has been reviewed and discussed with Dr. Huynh and the impression and plan of care has been directed as dictated. Past Medical History Past Medical History: Coronary Artery Disease (CAD), Hyperlipidemia, Hypertension Additional Past Medical History / Comment(s): arthritis in back, cataracts History of Any Multi-Drug Resistant Organisms: MRSA Year Discovered:: 01/23/23 MDRO Source:: Back Past Surgical History: Heart Catheterization, Hernia Repair, Tonsillectomy Additional Past Surgical History / Comment(s): colonoscopy, iban cataracts, wisdom teeth Past Anesthesia/Blood Transfusion Reactions: No Reported Reaction Past Psychological History: No Psychological Hx Reported Smoking Status: Light tobacco smoker Past Alcohol Use History: Occasional Past Drug Use History: None Reported - Past Family History Father Family Medical History: Cancer Additional Family Medical History / Comment(s): ca of lymph nodes Medications and Allergies Home Medications Medication Instructions Recorded Confirmed Type Latanoprost Ophth [Xalatan 0.005%] 1 drop BOTH EYES HS 01/02/17 07/22/23 History Thiamine [Vitamin B-1] 100 mg PO DAILY #30 tab 11/27/21 07/22/23 Rx Famotidine [Pepcid] 20 mg PO DAILY 08/29/22 07/22/23 History Albuterol Inhaler [Ventolin Hfa 2 puff INHALATION RT-Q6H PRN 10/27/22 07/22/23 History Inhaler] Atorvastatin [Lipitor] 20 mg PO HS 01/21/23 07/22/23 History Magnesium Hydroxide [Milk of 2,400 mg PO DAILY PRN 01/21/23 07/22/23 History Magnesia] Sennosides [Senokot] 8.6 mg PO DAILY 07/03/23 07/22/23 History Ferrous Sulfate [Iron (65 MG 325 mg PO DAILY #30 tab 07/08/23 07/22/23 Rx Elemental)] Docusate [Colace] 100 mg PO BID 07/11/23 07/22/23 History Menthol [Icy Hot] 1 patch TRANSDERM BID 07/11/23 07/22/23 History Metoprolol Tartrate [Lopressor] 12.5 mg PO BID@0700,1900 07/11/23 07/22/23 History Pantoprazole [Protonix] 40 mg PO DAILY 07/11/23 07/22/23 History HYDROcodone/APAP 5-325MG [[place] 1 tab PO Q6HR PRN #6 tab 07/12/23 07/22/23 Rx 5-325] Acetaminophen [Tylenol 8 Hour] 650 mg PO Q6H PRN 07/22/23 07/22/23 History Doxycycline [Vibramycin] 100 mg PO BID@0700,1600 07/22/23 07/22/23 History Ipratropium-Albuterol Nebulize 3 ml INHALATION RT-TID 07/22/23 07/22/23 History [Duoneb 0.5 mg-3 mg/3 ml Soln] lisinopriL [Zestril] 2.5 mg PO DAILY@0700 07/22/23 07/22/23 History Allergies Allergy/AdvReac Type Severity Reaction Status Date / Time No Known Allergies Allergy Verified 07/22/23 11:45 Physical Exam Vitals: Vital Signs Temp Pulse Resp BP BP Pulse Ox 08/05/23 08:57 94 L 08/05/23 06:54 97.6 F 69 18 121/57 96 08/05/23 05:50 121/70 08/05/23 00:33 97.5 F L 99 18 113/64 98 08/04/23 19:57 97.4 F L 62 19 120/63 96 08/04/23 12:35 97.6 F 71 19 128/70 96 Intake and Output 08/04/23 08/05/23 08/05/23 22:59 06:59 14:59 Intake Total 200 Output Total 625 2000 Balance -425 -1999 Intake: Oral 200 Output: Urine 625 1999 Other: Voiding Method Indwelling Catheter Indwelling Catheter # Bowel Movements 1 1 Weight 73 kg Results CBC & Chem 7: 08/04/23 06:01 08/05/23 08:08 Labs: Abnormal Lab Results - Last 24 Hours (Table) 08/05/23 Range/Units 08:08 Sodium 128 L (137-145) mmol/L Chloride 97 L (98-107) mmol/L Carbon Dioxide 31 H (22-30) mmol/L BUN 35 H (9-20) mg/dL Glucose 136 H (74-99) mg/dL Calcium 7.6 L (8.4-10.2) mg/dL Assessment and Plan (1) Stage II pressure ulcer of left heel Current Visit: Yes Status: Acute Code(s): L89.622 - PRESSURE ULCER OF LEFT HEEL, STAGE 2 SNOMED Code(s): 28643868519509 (2) Unstageable pressure ulcer of right heel Current Visit: Yes Status: Acute Code(s): L89.610 - PRESSURE ULCER OF RIGHT HEEL, UNSTAGEABLE SNOMED Code(s): 90567125321742686
[2023-08-05 11:45] LABS: Anisocytosis Slight; HGB 8.7 gm/dL (13.0-17.5); Hypochromasia Slight; MCH 28.1 pg (25.0-35.0); MCHC 31.2 g/dL (31.0-37.0); Mean Platelet Volume 9.6; Platelet Count 271 k/uL (150-450); RBC 3.11 m/uL (4.30-5.90); RDW 17.2 % (11.5-15.5); WBC 14.1 k/uL (3.8-10.6)
--- NOTE | 2023-08-05 13:20 | P.PN ---
Subjective Progress Note Date: 08/05/23 Patient is an 88-year-old male with past medical history significant for hypertension, hyperlipidemia, paroxysmal atrial fibrillation previously anticoagulated on Eliquis, frequent falls. Patient recently fell from his wheelchair and had sustained a left hip fracture. He underwent a left hip cemented unipolar hemiarthroplasty on 07/05/2023. He was then discharged back to his extended care facility. Patient was sent back in from his ECF yesterday for evaluation of acute dyspnea. He was reportedly diagnosed with pneumonia earlier in the day, and started on doxycycline. When EMS arrived to the [facility], he was hypoxic with an SpO2 of less than 80%. He was also tachypneic and tachycardic and in respiratory distress. He was transferred to our facility on BiPAP. He is currently sitting up in bed, in some respiratory distress. On BiPAP with settings 12/6 and FiO2 of 100%. Respiratory rate is in the mid 30s and tidal volumes are greater than 800. He is unable to provide any information at this time. There is accessory muscle use. ABG done on above-mentioned settings showed a PaO2 of 183, pCO2 of 39, pH of 7.35. Chest x-ray shows a left lower lobe infiltrate and or atelectasis and small left-sided pleural effusion, possibly parapneumonic. CBC on arrival: WBC count of 30.7, hemoglobin 8.9, hematocrit 27.8, platelets 708. CMP on arrival: Sodium 130, potassium 4.9, chloride 97, serum bicarb 19, BUN 59, creatinine 2.09, glucose 106. Normal saline infusing at 130 MLS per hour. LFTs mildly elevated. Troponin 0.027. NT proBNP 5700. There is a component of acute on chronic kidney injury. Negative for influenza, RSV, COVID. Patient's D-dimer was elevated. For this reason a venous Doppler of the lower extremities was ordered, and the patient was found to have a left lower extremity DVT. Patient was previously anticoagulated on Eliquis, however, this has been stopped after his most recent fall and hip fracture. Left hip incision is approximated and clean and dry. No drainage. Hemoglobin is stable at 8.9 g/dL. Patient denies any bright red blood, melanotic stools, or hematemesis. Patient's respiratory status is currently labile, will continue to closely monitor. Patient may need transfer to the intensive care unit. In the emergency department and I had a lengthy discussion with the . The patient is currently on a BiPAP and is tolerating the BiPAP reasonably well with generation of adequate tidal volume above 500. No significant tachypnea. The patient is on a pressure setting of 12/6 and a meters of water and FiO2 has been weaned down.The white cell count from today is 29 with a hemoglobin of 7.6 and a platelet count of 527. Blood gases show a pH of 7.35 with a pCO2 of 39 and pO2 of 183 and this was on FiO2 of 100%. Viral screen has been negative and the procalcitonin level is at 4.2. BUN is at 69 with a creatinine of 2.09. Cultures were sent and the results are still pending for now. The chest x-ray showed a new area of consolidation of the left lower lobe in addition to a small left-sided pleural effusion. Ultrasound of the chest was also ordered and the results were consistent with a small left-sided pleural effusion with a 4.2 cm pocket. 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 Noted the patient was on anticoagulation with Eliquis in the past and this anticoagulation was discontinued because of his frequent falls. Noted the procalcitonin level is elevated at 4.2 On today's evaluation of 07/23/2023, seen the patient for a follow-up. The patient got moved out of the emergency department and the patient is currently on the medical floor. He was taken off the BiPAP this morning and the patient is currently on 2 L of O2 with a pulse ox of 98%. Alert awake and communicating. The white cell count is dropped down to 17.4 with a hemoglobin of 8.2 and a platelet count of 579. Hemodynamically stable. There is also interval improvement in the creatinine which is down to 1.43 with a BUN of 61. Sodium levels at 134. The patient remains on a combination of Zosyn and vancomycin. Remains on bronchodilators. Remains on IV Solu-Medrol 60 mg every 6 hours. The patient is also on IV heparin. PTT is therapeutic at this point in time. No evidence of any bleeding. Awake and alert and communicating. On today's evaluation of 07/24/2023, the patient is being seen for a follow-up. Clinically stable and the patient is currently on liters of oxygen by nasal cannula with a pulse ox of 94%. Repeat chest x-ray was done today and it shows some increase in the left lower lobe pleural effusion. There is also some infiltration/atelectasis. However clinically, the patient is stable. The patient is currently off the BiPAP. He has developed a small left-sided pleural effusion, likely parapneumonic in nature. Ultrasound of the chest was done yesterday showed a 4.2 cm pocket in the left lung. The WBC count is at 10.1 whi ch is improved with a hemoglobin of 7.7 slightly lower compared to yesterday with a platelet count of 537. Rest of the electrolytes are still pending. The patient remains on IV heparin. Remains on Zosyn and vancomycin coverage. No significant tachycardia. The patient is on DuoNeb updrafts. The patient on IV Solu-Medrol. The patient on Zosyn and vancomycin. The patient is on metoprolol 12.5 mg p.o. twice a day. On today's evaluation on 07/25/2023, the patient continues to improve. The white cell count is down to 7.8. The patient remains on 3 L of oxygen by nasal cannula. No significant respite distress. Repeat chest x-ray was done today and shows a stable left-sided pleural effusion that has not changed in size and the patient also has some stable infiltration of the left lung base consistent with pneumonia but small parapneumonic effusion. Hemoglobin is currently down to 6.6. The patient will be given a unit of packed RBC accordingly. Rest of the electrolytes show a creatinine of 1.33 with a BUN of 56 and a sodium levels at 138 with a potassium level of 4.1. The patient remains on IV heparin. He does have a DVT of the left lower extremity. No evidence of any GI bleeding at this point in time while being on IV heparin. On today's evaluation on 07/26/2023, the patient is being seen for a follow-up. The patient was given a unit of packed RBC yesterday and the hemoglobin is currently at 7.4. He is on oxygen 3 L with a pulse ox of 92%. He is lethargic and weak. Nevertheless denies having any significant shortness of breath. No chest pain. Remains on Zosyn and vancomycin. Nasal screen for MRSA was positive. Possibility of MRSA pneumonia cannot be completely excluded. The patient also developed a small parapneumonic effusion not amenable for thoracen tesis. He is a DNR/DNI CODE STATUS. Remains on bronchodilators. Remains on steroids. In addition, the patient is experiencing some hematuria at baseline and anticoagulation was stopped. Based on his high risk for anticoagulation and previous history of falls and concern for bleed, anticoagulation was placed on hold and vascular surgery was consulted for IVC filter placement. On today's evaluation, the patient is essentially unchanged remains on 3 L of oxygen by nasal cannula with a pulse ox of 97%. Chest x-ray was repeated this morning and the patient has an unchanged left-sided pleural effusion and left lower lobe consolidation. Remains on Zosyn and vancomycin. Labs from today shows a white cell count of 8 with a hemoglobin of 8 and a platelet count of 329. Electrolytes are within normal limits from yesterday. Creatinine is down to 1.2. No active hematuria and patient will be placed back on IV heparin pending vascular surgery consult 07/28/2023, patient is being seen for a follow-up. The patient is currently on oxygen at 4 L. Calm and comfortable. Noted frustrated. He is weak and quite debilitated at this point in time. He remains on Zosyn and vancomycin. He remains on IV heparin. No evidence of any hematuria. Howard catheter is in place. Hemoglobin is at 7.6. BUN is 53 with creatinine 1.24 levels at 139. Limited congested cough. No significant sputum production. He did encounter some swelling l upper extremity and a Doppler showed no evidence of any DVT in the right upper extremity. Nonocclusive thrombus was seen within the right cephalic vein. The patient is seen today July 29, 2023 in follow-up on the regular medical floor. He is currently sitting up in bed. Awake and alert in no acute distress. He is maintaining good O2 saturations in the upper 90s on 5 L/min per nasal cannula. He is afebrile. Hemodynamically stable. He remains on a heparin drip. Continued on bronchodilators and steroids. Antibiotics in the form of vancomycin and Zosyn. The patient is seen today July 30, 2023 in follow-up on the regular medical floor. He is awake and alert in no acute distress. He is maintaining O2 saturations in the 90s on 5 L/min per nasal cannula. White count 4.5. Hemoglobin 6.1. Platelets 173. Creatinine 1.24. He remains on a heparin drip. The plan is for IVC filter placement today. Packed red blood cell transfusion has been ordered. Remains on vancomycin and Zosyn. Continued on Flovent, albuterol, Spiriva. Remains on IV Solu-Medrol. The patient is seen today July 31, 2023 in follow-up on the regular medical floor. He is sitting up in bed. Awake and alert in no acute distress. Continuing to maintain O2 saturations in the 90s on 5 L/min per nasal cannula. He has been afebrile. Hemodynamically stable. He did go for IVC filter placement yesterday. Groin site is stable. Blood and sputum cultures revealed no growth. White count 6.6. Hemoglobin 6.1. Platelets 111. He is status post 3 units of packed red blood cells this admission. He remains on Serevent, Flovent, Spiriva. Remains on IV Solu-Medrol. Remains on antibiotics in the form of vancomycin and Zosyn. The patient is seen today August 01, 2023 in follow-up on the regular medical floor. He is awake and alert in no acute distress. Sitting up in bed having breakfast. Denies any worsening shortness of breath, cough or congestion. He is maintaining good O2 saturations in the upper 90s on 6 L/min per nasal cannula. He is afebrile. Hemodynamically stable. He is status post 3 units of packed red blood cells this admission. Blood culture revealed no growth. Sputum culture revealed no growth. White count 8.7. Hemoglobin 8.4. Platelets 155. Sodium 135. Potassium 3.6. Bicarb 21. BUN 48. Creatinine 1.17. Glucose 153. He remains on bronchodilators, steroids. Antibiotics in the form of vancomycin and Zosyn. The patient is seen today August 02, 2023 in follow-up on the regular medical floor. He is currently sitting up in bed. Awake and alert in no acute distress. He denies any worsening shortness of breath, cough or congestion. He is still requiring 5 L high flow nasal cannula to maintain O2 saturations in the 90s. His chest x-ray is showing evidence of increasing pulmonary edema. He is currently on Lasix 40 mg p.o. daily. He remains afebrile. Hemodynamically stable. He is status post 3 units of packed red blood cells this admission. Current hemoglobin 8.1. Platelets 179. White count 12.0. Sodium 134. Potassium 3.4. Bicarb 24. BUN 42. Creatinine 1.02. Glucose 152. He completed his course of antibiotics. The patient is seen today August 03, 2023 in follow-up on the regular medical floor. He is awake and alert in no acute distress. Denies any worsening shortness of breath, cough or congestion. He is on 4 L nasal cannula with O2 saturations in the 90s. His chest x-ray is showing bibasilar infiltrates. He does have some continued crackles in the bases more so on the left. He has less swelling in his feet and hands. He has diuresed over 2 L yesterday and again today. He remains on Lasix 40 mg IV every 12 hours. White count 11.1. Hemoglobin 8.1. Platelets 198. Sodium 132. Potassium 4.2. Bicarb 22. Creatinine 0.93. BUN 38. Glucose 171. He is continued on bronchodilators. Continued on prednisone taper. The patient is seen today August 04, 2023 in follow-up on the regular medical floor. He is sitting up in bed having lunch. Denies any worsening shortness of breath, cough or congestion. No chest pain or palpitations. He is continued on Lasix 40 mg every 12 hours. Remains on bronchodilators. Maintain O2 saturation in the 90s on 4 L/min per nasal cannula. He has received 3 units of packed red blood cells this admission. Current hemoglobin 8.7. Platelets 217. White count 15.5. Sodium 135. Potassium 4.6. Bicarb 25. BUN 34. Creatinine 1.1. Glucose 139. He is currently in a -3.7 L balance. The patient is seen today August 05, 2023 in follow-up on the regular medical floor. He is currently resting comfortably in bed. Awake and alert in no acute distress. Maintaining good O2 saturations in the 90s on 4 L/min per nasal cannula. Chest x-ray is showing improved aeration. There is pulmonary venous congestion with mild interstitial edema. Improved bilateral pleural effusions. White count 14.1. Hemoglobin 8.7. Platelets 271. Sodium 128. Potassium 4.0. Bicarb 31. BUN 35. Creatinine 1.05. Glucose 136. He is continued on [facility] hodilators, prednisone. Remains on IV diuretics. Currently on a negative 3.2 L balance. He is status post 3 units of packed red blood cells this admission. Objective - Vital Signs Vital signs: Vital Signs Temp 98.4 F 08/05/23 12:38 Pulse 73 08/05/23 12:38 Resp 18 08/05/23 13:02 BP 112/56 08/05/23 13:02 Pulse Ox 96 08/05/23 13:02 FiO2 40 07/23/23 02:57 Intake & Output 08/04/23 08/05/23 08/05/23 18:59 06:59 18:59 Intake Total 200 Output Total 1450 2000 1500 Balance -1450 -1800 -1500 Weight 74 kg 73 kg Intake: Oral 200 Output: Urine 1450 2000 1500 Other: Voiding Method Indwelling Catheter Indwelling Catheter # Bowel Movements 1 1 - Exam GENERAL EXAM: Alert, pleasant, frail 88-year-old male, resting comfortably in bed, on 4 L nasal cannula, in no apparent distress. HEAD: Normocephalic. EYES: Normal reaction of pupils, equal size. NOSE: Clear with pink turbinates. THROAT: No erythema or exudates. NECK: No masses, no JVD. CHEST: No chest wall deformity. LUNGS: Equal air entry with crackles in the bilateral bases, left greater than right. CVS: S1 and S2 normal with no audible murmur, regular rhythm. ABDOMEN: No hepatosplenomegaly, normal bowel sounds, no guarding or rigidity. SPINE: No scoliosis or deformity SKIN: No rashes. Skin tears of the right upper extremity. CENTRAL NERVOUS SYSTEM: No focal deficits, tone is normal in all 4 extremities. EXTREMITIES: Multiple areas of ecchymosis. Left hip incision clean dry well- approximated there is no peripheral edema. No clubbing, no cyanosis. Perip heral pulses are intact. - Labs CBC & Chem 7: 08/05/23 08:08 08/05/23 08:08 Labs: Abnormal Lab Results - Last 24 Hours (Table) 08/05/23 08/05/23 Range/Units 08:08 08:08 WBC 14.1 H (3.8-10.6) k/uL RBC 3.11 L (4.30-5.90) m/uL Hgb 8.7 L (13.0-17.5) gm/dL Hct 28.0 L (39.0-53.0) % RDW 17.2 H (11.5-15.5) % Sodium 128 L (137-145) mmol/L Chloride 97 L (98-107) mmol/L Carbon Dioxide 31 H (22-30) mmol/L BUN 35 H (9-20) mg/dL Glucose 136 H (74-99) mg/dL Calcium 7.6 L (8.4-10.2) mg/dL Assessment and Plan Assessment: Acute hypoxemic respiratory failure, possibly multifactorial, secondary to acute COPD exacerbation and possible left-sided community-acquired pneumonia and left- sided pleural effusion, possibly parapneumonic. Possibility of a hospital- acquired pathogen cannot be completely ruled out. Patient is currently on 4 L of oxygen nasal cannula and his repeat chest x-ray shows a continued pleural effusions and pulmonary edema and remains on IV diuretics Acute left lower lobe pneumonia, most likely bacterial infection and the patient procalcitonin level is also elevated. 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 Completed 10 days of vancomycin and Zosyn Acute leukocytosis, possibly secondary to above, recovered Left lower extremity DVT The ultrasound of the lower extremity on the left reveals chronic clot versus partially occlusive thrombus involving the long segment of the left lower extremity. Note that the patient was off his anticoagulants due to his frequent falls and anemia. IVC filter placed July 30, 2023 Frequent falls, with recent left hip femoral neck fracture, status/post left hip cemented unipolar hemiarthroplasty on 07/05/2023 History of fall with multiple left-sided rib fractures and pulmonary contusion History of paroxysmal atrial fibrillation, Eliquis has been stopped Acute on chronic kidney disease, creatinine is improved compared to yesterday the patient is recovering from his acute kidney injury Acute on top of chronic anemia with a drop in hemoglobin again at 6.1 on 07/31/2023, status post 3 units of packed RBCs this admission, current hemoglobin 8.7 History of thoracic level wound/cellulitis, isolated organism at that time was MRSA History of hyperlipidemia History of hypertension History of former tobacco dependence Chronic obstructive pulmonary disease History of alcoholism Hematuria Poor overall functional performance based on the above-mentioned multiple comorbidities Plan: The patient was seen and evaluated Chest x-ray, medications and labs reviewed Chest x-ray showing improved aeration Continued on bronchodilators, steroid Completed 10 days of antibiotics Transition to oral diuretic Plan is to return to [facility] This patient was seen independently by the pulmonary nurse practitioner addressing pulmonary issues I have personally seen and examined the patient, performed the documentation and the assessment and plan as written. Number of minutes spent on the visit: 22.
[2023-08-05 13:48] LABS: Lymphocytes # (M) 0.85 k/uL (1.0-4.8); Metamyelocytes # (M) 0.14 k/uL (0); Metamyelocytes % 1 %; Monocytes # (M) 2.26 k/uL (0-1.0); Neutrophils % (M) 78 %; Nucleated Red Blood Cells 0 /100 WBC (0-0); Total Cells Counted 200
[2023-08-05 13:50] LABS: Poikilocytosis (M) Present
[2023-08-05] MEDS ORDERED: Magnesium Replacement Protocol 1 EACH MISC MISCELLANE PRN (19:53)
[2023-08-05] MEDS: MAGNESIUM SULFATE-D5W PMX 1 GM in DEXTROSE/WATER 1 100ML.BAG IVPB ONE (20:16)
[2023-08-05] MEDS: MAGNESIUM OXIDE 400 MG TAB PO SCH (20:17)
[2023-08-05] MEDS: SODIUM CHLORIDE TAB 1 GM TAB PO STA (20:17)
[2023-08-06] MEDS: FUROSEMIDE 40 MG TAB PO SCH (09:28)
--- NOTE | 2023-08-06 11:32 | P.PN ---
Subjective Progress Note Date: 08/06/23 Patient is an 88-year-old male with past medical history significant for hypertension, hyperlipidemia, paroxysmal atrial fibrillation previously anticoagulated on Eliquis, frequent falls. Patient recently fell from his wheelchair and had sustained a left hip fracture. He underwent a left hip cemented unipolar hemiarthroplasty on 07/05/2023. He was then discharged back to his extended care facility. Patient was sent back in from his ECF yesterday for evaluation of acute dyspnea. He was reportedly diagnosed with pneumonia earlier in the day, and started on doxycycline. When EMS arrived to the [facility], he was hypoxic with an SpO2 of less than 80%. He was also tachypneic and tachycardic and in respiratory distress. He was transferred to our facility on BiPAP. He is currently sitting up in bed, in some respiratory distress. On BiPAP with settings 12/6 and FiO2 of 100%. Respiratory rate is in the mid 30s and tidal volumes are greater than 800. He is unable to provide any information at this time. There is accessory muscle use. ABG done on above-mentioned settings showed a PaO2 of 183, pCO2 of 39, pH of 7.35. Chest x-ray shows a left lower lobe infiltrate and or atelectasis and small left-sided pleural effusion, possibly parapneumonic. CBC on arrival: WBC count of 30.7, hemoglobin 8.9, hematocrit 27.8, platelets 708. CMP on arrival: Sodium 130, potassium 4.9, chloride 97, serum bicarb 19, BUN 59, creatinine 2.09, glucose 106. Normal saline infusing at 130 MLS per hour. LFTs mildly elevated. Troponin 0.027. NT proBNP 5700. There is a component of acute on chronic kidney injury. Negative for influenza, RSV, COVID. Patient's D-dimer was elevated. For this reason a venous Doppler of the lower extremities was ordered, and the patient was found to have a left lower extremity DVT. Patient was previously anticoagulated on Eliquis, however, this has been stopped after his most recent fall and hip fracture. Left hip incision is approximated and clean and dry. No drainage. Hemoglobin is stable at 8.9 g/dL. Patient denies any bright red blood, melanotic stools, or hematemesis. Patient's respiratory status is currently labile, will continue to closely monitor. Patient may need transfer to the intensive care unit. In the emergency department and I had a lengthy discussion with the . The patient is currently on a BiPAP and is tolerating the BiPAP reasonably well with generation of adequate tidal volume above 500. No significant tachypnea. The patient is on a pressure setting of 12/6 and a meters of water and FiO2 has been weaned down.The white cell count from today is 29 with a hemoglobin of 7.6 and a platelet count of 527. Blood gases show a pH of 7.35 with a pCO2 of 39 and pO2 of 183 and this was on FiO2 of 100%. Viral screen has been negative and the procalcitonin level is at 4.2. BUN is at 69 with a creatinine of 2.09. Cultures were sent and the results are still pending for now. The chest x-ray showed a new area of consolidation of the left lower lobe in addition to a small left-sided pleural effusion. Ultrasound of the chest was also ordered and the results were consistent with a small left-sided pleural effusion with a 4.2 cm pocket. 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 Noted the patient was on anticoagulation with Eliquis in the past and this anticoagulation was discontinued because of his frequent falls. Noted the procalcitonin level is elevated at 4.2 On today's evaluation of 07/23/2023, seen the patient for a follow-up. The patient got moved out of the emergency department and the patient is currently on the medical floor. He was taken off the BiPAP this morning and the patient is currently on 2 L of O2 with a pulse ox of 98%. Alert awake and communicating. The white cell count is dropped down to 17.4 with a hemoglobin of 8.2 and a platelet count of 579. Hemodynamically stable. There is also interval improvement in the creatinine which is down to 1.43 with a BUN of 61. Sodium levels at 134. The patient remains on a combination of Zosyn and vancomycin. Remains on bronchodilators. Remains on IV Solu-Medrol 60 mg every 6 hours. The patient is also on IV heparin. PTT is therapeutic at this point in time. No evidence of any bleeding. Awake and alert and communicating. On today's evaluation of 07/24/2023, the patient is being seen for a follow-up. Clinically stable and the patient is currently on liters of oxygen by nasal cannula with a pulse ox of 94%. Repeat chest x-ray was done today and it shows some increase in the left lower lobe pleural effusion. There is also some infiltration/atelectasis. However clinically, the patient is stable. The patient is currently off the BiPAP. He has developed a small left-sided pleural effusion, likely parapneumonic in nature. Ultrasound of the chest was done yesterday showed a 4.2 cm pocket in the left lung. The WBC count is at 10.1 whi ch is improved with a hemoglobin of 7.7 slightly lower compared to yesterday with a platelet count of 537. Rest of the electrolytes are still pending. The patient remains on IV heparin. Remains on Zosyn and vancomycin coverage. No significant tachycardia. The patient is on DuoNeb updrafts. The patient on IV Solu-Medrol. The patient on Zosyn and vancomycin. The patient is on metoprolol 12.5 mg p.o. twice a day. On today's evaluation on 07/25/2023, the patient continues to improve. The white cell count is down to 7.8. The patient remains on 3 L of oxygen by nasal cannula. No significant respite distress. Repeat chest x-ray was done today and shows a stable left-sided pleural effusion that has not changed in size and the patient also has some stable infiltration of the left lung base consistent with pneumonia but small parapneumonic effusion. Hemoglobin is currently down to 6.6. The patient will be given a unit of packed RBC accordingly. Rest of the electrolytes show a creatinine of 1.33 with a BUN of 56 and a sodium levels at 138 with a potassium level of 4.1. The patient remains on IV heparin. He does have a DVT of the left lower extremity. No evidence of any GI bleeding at this point in time while being on IV heparin. On today's evaluation on 07/26/2023, the patient is being seen for a follow-up. The patient was given a unit of packed RBC yesterday and the hemoglobin is currently at 7.4. He is on oxygen 3 L with a pulse ox of 92%. He is lethargic and weak. Nevertheless denies having any significant shortness of breath. No chest pain. Remains on Zosyn and vancomycin. Nasal screen for MRSA was positive. Possibility of MRSA pneumonia cannot be completely excluded. The patient also developed a small parapneumonic effusion not amenable for thoracen tesis. He is a DNR/DNI CODE STATUS. Remains on bronchodilators. Remains on steroids. In addition, the patient is experiencing some hematuria at baseline and anticoagulation was stopped. Based on his high risk for anticoagulation and previous history of falls and concern for bleed, anticoagulation was placed on hold and vascular surgery was consulted for IVC filter placement. On today's evaluation, the patient is essentially unchanged remains on 3 L of oxygen by nasal cannula with a pulse ox of 97%. Chest x-ray was repeated this morning and the patient has an unchanged left-sided pleural effusion and left lower lobe consolidation. Remains on Zosyn and vancomycin. Labs from today shows a white cell count of 8 with a hemoglobin of 8 and a platelet count of 329. Electrolytes are within normal limits from yesterday. Creatinine is down to 1.2. No active hematuria and patient will be placed back on IV heparin pending vascular surgery consult 07/28/2023, patient is being seen for a follow-up. The patient is currently on oxygen at 4 L. Calm and comfortable. Noted frustrated. He is weak and quite debilitated at this point in time. He remains on Zosyn and vancomycin. He remains on IV heparin. No evidence of any hematuria. Howard catheter is in place. Hemoglobin is at 7.6. BUN is 53 with creatinine 1.24 levels at 139. Limited congested cough. No significant sputum production. He did encounter some swelling l upper extremity and a Doppler showed no evidence of any DVT in the right upper extremity. Nonocclusive thrombus was seen within the right cephalic vein. The patient is seen today July 29, 2023 in follow-up on the regular medical floor. He is currently sitting up in bed. Awake and alert in no acute distress. He is maintaining good O2 saturations in the upper 90s on 5 L/min per nasal cannula. He is afebrile. Hemodynamically stable. He remains on a heparin drip. Continued on bronchodilators and steroids. Antibiotics in the form of vancomycin and Zosyn. The patient is seen today July 30, 2023 in follow-up on the regular medical floor. He is awake and alert in no acute distress. He is maintaining O2 saturations in the 90s on 5 L/min per nasal cannula. White count 4.5. Hemoglobin 6.1. Platelets 173. Creatinine 1.24. He remains on a heparin drip. The plan is for IVC filter placement today. Packed red blood cell transfusion has been ordered. Remains on vancomycin and Zosyn. Continued on Flovent, albuterol, Spiriva. Remains on IV Solu-Medrol. The patient is seen today July 31, 2023 in follow-up on the regular medical floor. He is sitting up in bed. Awake and alert in no acute distress. Continuing to maintain O2 saturations in the 90s on 5 L/min per nasal cannula. He has been afebrile. Hemodynamically stable. He did go for IVC filter placement yesterday. Groin site is stable. Blood and sputum cultures revealed no growth. White count 6.6. Hemoglobin 6.1. Platelets 111. He is status post 3 units of packed red blood cells this admission. He remains on Serevent, Flovent, Spiriva. Remains on IV Solu-Medrol. Remains on antibiotics in the form of vancomycin and Zosyn. The patient is seen today August 01, 2023 in follow-up on the regular medical floor. He is awake and alert in no acute distress. Sitting up in bed having breakfast. Denies any worsening shortness of breath, cough or congestion. He is maintaining good O2 saturations in the upper 90s on 6 L/min per nasal cannula. He is afebrile. Hemodynamically stable. He is status post 3 units of packed red blood cells this admission. Blood culture revealed no growth. Sputum culture revealed no growth. White count 8.7. Hemoglobin 8.4. Platelets 155. Sodium 135. Potassium 3.6. Bicarb 21. BUN 48. Creatinine 1.17. Glucose 153. He remains on bronchodilators, steroids. Antibiotics in the form of vancomycin and Zosyn. The patient is seen today August 02, 2023 in follow-up on the regular medical floor. He is currently sitting up in bed. Awake and alert in no acute distress. He denies any worsening shortness of breath, cough or congestion. He is still requiring 5 L high flow nasal cannula to maintain O2 saturations in the 90s. His chest x-ray is showing evidence of increasing pulmonary edema. He is currently on Lasix 40 mg p.o. daily. He remains afebrile. Hemodynamically stable. He is status post 3 units of packed red blood cells this admission. Current hemoglobin 8.1. Platelets 179. White count 12.0. Sodium 134. Potassium 3.4. Bicarb 24. BUN 42. Creatinine 1.02. Glucose 152. He completed his course of antibiotics. The patient is seen today August 03, 2023 in follow-up on the regular medical floor. He is awake and alert in no acute distress. Denies any worsening shortness of breath, cough or congestion. He is on 4 L nasal cannula with O2 saturations in the 90s. His chest x-ray is showing bibasilar infiltrates. He does have some continued crackles in the bases more so on the left. He has less swelling in his feet and hands. He has diuresed over 2 L yesterday and again today. He remains on Lasix 40 mg IV every 12 hours. White count 11.1. Hemoglobin 8.1. Platelets 198. Sodium 132. Potassium 4.2. Bicarb 22. Creatinine 0.93. BUN 38. Glucose 171. He is continued on bronchodilators. Continued on prednisone taper. The patient is seen today August 04, 2023 in follow-up on the regular medical floor. He is sitting up in bed having lunch. Denies any worsening shortness of breath, cough or congestion. No chest pain or palpitations. He is continued on Lasix 40 mg every 12 hours. Remains on bronchodilators. Maintain O2 saturation in the 90s on 4 L/min per nasal cannula. He has received 3 units of packed red blood cells this admission. Current hemoglobin 8.7. Platelets 217. White count 15.5. Sodium 135. Potassium 4.6. Bicarb 25. BUN 34. Creatinine 1.1. Glucose 139. He is currently in a -3.7 L balance. The patient is seen today August 05, 2023 in follow-up on the regular medical floor. He is currently resting comfortably in bed. Awake and alert in no acute distress. Maintaining good O2 saturations in the 90s on 4 L/min per nasal cannula. Chest x-ray is showing improved aeration. There is pulmonary venous congestion with mild interstitial edema. Improved bilateral pleural effusions. White count 14.1. Hemoglobin 8.7. Platelets 271. Sodium 128. Potassium 4.0. Bicarb 31. BUN 35. Creatinine 1.05. Glucose 136. He is continued on [facility] hodilators, prednisone. Remains on IV diuretics. Currently on a negative 3.2 L balance. He is status post 3 units of packed red blood cells this admission. The patient is seen today August 06, 2023 in follow-up on the regular medical floor. He is awake and alert in no acute distress. Feeling better today compared to yesterday. He has been slow to progress. He remains quite weak and debilitated. Continues to maintain good O2 saturations in the 90s on 4 L/min per nasal cannula. He is afebrile. Hemodynamically stable. He is status post 3 units of packed red blood cells this admission. Current hemoglobin 8.7. Blood and sputum culture had revealed no growth. Nasal swab was positive for MRSA. He has been transition to oral diuretics. Currently in -2.1 L balance. He is continued on bronchodilators and prednisone. Objective - Vital Signs Vital signs: Vital Signs Temp 98.6 F 08/06/23 07:18 Pulse 74 08/06/23 07:18 Resp 18 08/06/23 07:18 BP 124/95 08/06/23 07:18 Pulse Ox 100 08/06/23 07:18 FiO2 40 07/23/23 02:57 Intake & Output 08/05/23 08/06/23 08/06/23 18:59 06:59 18:59 Output Total 1825 300 Balance -1825 -300 Weight 73.5 kg Output: Urine 1825 300 Other: Voiding Method Indwelling Catheter Indwelling Catheter Indwelling Catheter # Bowel Movements 1 1 - Exam GENERAL EXAM: Alert, weak, frail 88-year-old male, resting in bed, on 4 L nasal cannula, in no apparent distress. HEAD: Normocephalic. EYES: Normal reaction of pupils, equal size. NOSE: Clear with pink turbinates. THROAT: No erythema or exudates. NECK: No masses, no JVD. CHEST: No chest wall deformity. LUNGS: Equal air entry with crackles in the bilateral bases, left greater than right. CVS: S1 and S2 normal with no audible murmur, regular rhythm. ABDOMEN: No hepatosplenomegaly, normal bowel sounds, no guarding or rigidity. SPINE: No scoliosis or deformity SKIN: No rashes. Skin tears of the right upper extremity. CENTRAL NERVOUS SYSTEM: No focal deficits, tone is normal in all 4 extremities. EXTREMITIES: Multiple areas of ecchymosis. Left hip incision clean dry well- approximated there is no peripheral edema. No clubbing, no cyanosis. Peripheral pulses are intact. - Labs CBC & Chem 7: 08/05/23 08:08 08/05/23 08:08 Labs: Abnormal Lab Results - Last 24 Hours (Table) 08/05/23 Range/Units 08:08 WBC 14.1 H (3.8-10.6) k/uL RBC 3.11 L (4.30-5.90) m/uL Hgb 8.7 L (13.0-17.5) gm/dL Hct 28.0 L (39.0-53.0) % RDW 17.2 H (11.5-15.5) % Neutrophils # (Manual) 11.00 H (1.3-7.7) k/uL Lymphocytes # (Manual) 0.85 L (1.0-4.8) k/uL Monocytes # (Manual) 2.26 H (0-1.0) k/uL Metamyelocytes # (Man) 0.14 H (0) k/uL Assessment and Plan Assessment: Acute hypoxemic respiratory failure, possibly multifactorial, secondary to acute COPD exacerbation and possible left-sided community-acquired pneumonia and left- sided pleural effusion, possibly parapneumonic. Possibility of a hospital- acquired pathogen cannot be completely ruled out. Patient is currently on 4 L of oxygen nasal cannula and his repeat chest x-ray shows a continued pleural effusions and pulmonary edema and remains on diuretics Acute left lower lobe pneumonia, most likely bacterial infection and the patient procalcitonin level is also elevated. 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 Completed 10 days of vancomycin and Zosyn Acute leukocytosis, possibly secondary to above, recovered Left lower extremity DVT The ultrasound of the lower extremity on the left reveals chronic clot versus partially occlusive thrombus involving the long segment of the left lower extremity. Note that the patient was off his anticoagulants due to his frequent falls and anemia. IVC filter placed July 30, 2023 Frequent falls, with recent left hip femoral neck fracture, status/post left hip cemented unipolar hemiarthroplasty on 07/05/2023 History of fall with multiple left-sided rib fractures and pulmonary contusion History of paroxysmal atrial fibrillation, Eliquis has been stopped Acute on chronic kidney disease, creatinine is improved compared to yesterday the patient is recovering from his acute kidney injury Acute on top of chronic anemia with a drop in hemoglobin again at 6.1 on 024, status post 3 units of packed RBCs this admission, current hemoglobin 8.7 History of thoracic level wound/cellulitis, isolated organism at that time was MRSA History of hyperlipidemia History of hypertension History of former tobacco dependence Chronic obstructive pulmonary disease History of alcoholism Hematuria Poor overall functional performance based on the above-mentioned multiple comorbidities Plan: The patient was seen and evaluated Medications reviewed, labs pending Continued on bronchodilators, steroids Transitioned to oral diuretic Overall prognosis is guarded DNR/DNI CODE STATUS Plan is to return to [facility] This patient was seen independently by the pulmonary nurse practitioner addressing pulmonary issues I have personally seen and examined the patient, performed the documentation and the assessment and plan as written. Number of minutes spent on the visit: 23.
[2023-08-06 11:56] LABS: BUN/Creat Ratio 31.55 Ratio (12.00-20.00); Blood Urea Nitrogen 34.7 mg/dL (9.0-27.0); Calcium 8.2 mg/dL (8.7-10.3); Carbon Dioxide 28.7 mmol/L (21.6-31.8); Chloride 95 mmol/L (96-109); Glucose 125 mg/dL (70-110); Magnesium 1.9 mg/dL (1.5-2.4); Potassium 4.7 mmol/L (3.5-5.5); Sodium 134 mmol/L (135-145)
[2023-08-06] MEDS: MIDODRINE 5 MG TAB PO STA (13:25)
[2023-08-06] MEDS: MAGNESIUM SULFATE-D5W PMX 1 GM in DEXTROSE/WATER 1 100ML.BAG IVPB ONE (14:01)
[2023-08-06 14:16] VITALS: BMI 21.4
--- NOTE | 2023-08-06 16:54 | P.PN ---
Subjective Progress Note Date: 08/05/23 Patient is a 88-year-old male with a past medical history of hypertension, hyperlipidemia, paroxysmal atrial fibrillation coronary artery disease nonobstructive, mild cardiomyopathy ejection fraction 45-50 %, history of right tobacco smoker and left hip hemiarthroplasty on 07/05/2023 due to mechanical fa ll. Patient presented from nursing facility due to worsening shortness of breath/dyspnea. Patient was diagnosed with pneumonia and was started on doxycycline. He was placed on oxygen at 4 L via nasal cannula and EMS was called due to hypoxia with pulse ox down to 80% and patient was tachycardic and tachypneic. Patient was placed on BiPAP by EMS and was transferred to ER. Otherwise patient denies any complaints of chest pain. Cough with occasional sputum production. Tmax 101.0 on admission. Patient was recently admitted to due to acute blood loss anemia from 07/11/2023 to 07/12/2023. requiring 1 unit PRBC transfusion. Eliquis was held and was [facility]. Chest x-ray showed chronic parenchymal changes with new small left pleural effusion and left lower lobe acute infiltrates/atelectasis. EKG showed sinus tachycardia with possible left atrial enlargement. Lower extremity venous duplex showed suboptimal study. Long segment left lower extremity DVT is present. Findings reflect chronic clot or partially occlusive thrombus. Correlate clinically. Mild to moderate diffuse subcutaneous edema is seen on images obtained. Laboratory data showed WBC 13.7 hemoglobin 8.9 and platelets 708, D-dimer 4.11 ABG showed pH 7.35 pCO2 39, pO2 183 Sodium 130 potassium 4.9 chloride 97 bicarb is 19 BUN 59 and creatinine 2.09 and blood sugar 106 and lactic acid 3.1 total bilirubin 3.5 and alk phos 268, proBNP 5700, troponin 0.027 and albumin 2.8 Influenza A, B, RSV and COVID-19 PCR not detected. 07/23/2023 Patient is seen and evaluated in follow-up. Patient was continued on BiPAP and is currently maintaining oxygen saturations above 90% on 3 L. Patient continues on IV heparin drip with left lower extremity DVT. VQ scan was ordered as jean t was unable to have CT of the chest for PE evaluation as kidney functions are elevated. Will hold on VQ scan for now as patient unable to tolerate lying flat. Continue IV heparin and will likely need to transition back to Eliquis. 07/24/2023 Patient is seen and evaluated in follow-up today with pulmonary following. Patient continues on 3 L via nasal cannula and has been off of the BiPAP. Fol low-up chest x-ray today shows increasing left lower lobe pleural effusion with associated atelectasis and/or infiltrate. Strongly encourage incentive spirometer although patient needs much encouragement as he is extremely weak and confused at times. Patient continues on IV heparin and will for now as there will be a follow-up chest x-ray in the a.m. and may require a thoracentesis with pulmonary following closely. Will discuss with pulmonary in regards to transitioning to Eliquis or if patient is appropriate for any further anticoagulation. Patient is afebrile with no reported chest pain or worsening shortness of breath. Patient is continued on IV steroids along with antibiotics and DuoNeb breathing treatments. Encouraged oral intake and recommend aspiration precautions with head of the bed elevated 45 degrees at all times. 07/25/2023 Patient is seen this morning currently asleep although arousable. Patient maintained on 3 L via nasal cannula with pulmonary following. Follow-up chest x-ray shows stable effusion and pulmonary reporting no plans for thoracentesis at this time. Patient was continued on IV heparin although will transition to oral Eliquis and monitor for any bleeding. There are no active signs of bleeding at this time although hemoglobin was noted to be 6.6 today. Will transfuse 1 unit of PRBC follow-up on repeat labs. Patient continues on antibiotics sided pneumonia. Patient is afebrile and denies any chest pain or palpitations. Patient has a congested cough and difficulty expectorating. Encouraged incentive spirometer use and sitting up more often. Continue with DuoNeb treatments at this time. 07/26/2023 Patient is seen and evaluated in follow-up status post 1 unit of PRBC. Hemoglobin is 7.4 today with no active bleeding noted. Patient continues on DuoNeb treatments and will continue on antibiotics with pulmonary following closely. 07/27/2023 Patient is currently lying in the bed. Awake alert. Still having shortness of breath and oxygen requirement at 3 L via nasal cannula. Patient is on antibiotics in the form of vancomycin and Zosyn. Nasal swab cultures positive for MRSA. Patient is also on IV Solu-Medrol 60 mg every 6 hourly and DuoNebs. Patient was started back on anticoagulation with heparin drip. Vascular surgery was consulted. DVT. Chest x-ray showed unchanged left pleural effusion with associated atelectasis or infiltrate. Laboratory data showed WBC 8.0 hemoglobin 8.1 and platelets 288 INR 1.3. FOBT negative. 07/28/2023 Patient is lying in the bed. Awake alert but lethargic and weak. And currently requiring 4 L oxygen via nasal cannula. Currently on heparin drip due to lower extremity DVT and also on IV antibiotics. Hemoglobin is fairly stable at 7.6. No hematuria noted. Patient is also being continued on IV Solu-Medrol and DuoNebs. Pulmonary is on board. Vascular surgery was consulted. Patient does have significant right upper extremity swelling with possible extravasation of the IV line. Duplex scan was ordered to rule DVT. Laboratory showed WBC 6.8 hemoglobin 7.6 and platelets 265 Sodium 139 potassium 3.5 chloride 110 bicarb is 23 BUN 53 and creatinine 1.24 and blood sugar 166. Calcium 8.0. 07/29/2023 Patient is seen in follow-up today with multiple medical consultations hilario bee. Patient is continued on 5 L via nasal cannula although 99% and discussed with nursing staff about weaning FiO2 as tolerated. Patient continues on IV heparin for lower extremity DVT and hemoglobin is stable above 7. No further hematuria noted. Vascular surgery consulted for possible IVC filter placement as patient is a poor candidate for anticoagulation. Patient continues with some right upper extremity swelling and DVT was ruled out, difficult to exclude a thrombus in the cephalic vein where an IV was placed. Continue with supportive care and elevating that extremity. Patient with significant weakness recommend PT/OT therapy daily. Patient will be returning to [facility] once cleared by consultations. Will await vascular surgery evaluation. Patient to continue on breathing inhalational treatments along with antibiotics and IV steroids. Pulmonary health companion following. 07/30/2023 Patient is seen and evaluated this morning currently scheduled to undergo IVC filter placement as patient has been having drops in hemoglobin with no specific bleeding noted. Hematuria has resolved and was brief as patient continues with indwelling Howard catheter and urine is clear. Patient was initiated back on IV heparin for acute DVT in the left lower extremity although having complications with reduced hemoglobin, vascular was consulted for IVC filter. Patient is not a good candidate for anticoagulation. Hemoglobin was 6.1 today and will transfuse 2 units with Lasix in between and consult GI and appreciate input and recommendations. Patient denies any bleeding or difficulties with tolerating diet. Per nursing staff patient has had bowel movements that are brown with no blood noted, no dark melanotic stools noted. Patient is continued on antibiotics with pulmonary following as well congested weak cough likely chronic. Will obtain a chest x-ray. 07/31/2023 Patient is seen in follow-up with multiple medical consultations following his IVC filter placement. Patient had significant electrolyte and hemoglobin abnormalities this morning and awaiting repeat labs as patient received 2 units yesterday and hemoglobin was noted to be 6.1 again today. Repeat labs ordered and pending. Patient with critically low potassium and magnesium also awaiting repeat and will replace per protocol. Patient denies any bleeding or pain. Patient is maintained on antibiotics with pulmonary following with concerns of pneumonia on admission. Patient tolerating diet and denies any nausea or vomiting. GI has been consulted with concerns of possible GI bleed. Cardiology will be consulted as well for CHF. Will initiate low-dose Lasix and follow-up on repeat labs in the a.m. 08/01/2023 Patient is seen in follow-up today and hemoglobin remained stable above 8 with no active bleeding noted. GI consulted with concerns of possible GI bleed as patient had continued drop in hemoglobin. Patient is off anticoagulation and status post IVC filter placement. Not a good candidate for anticoagulation. Iron studies ordered and within normal limits. Will follow-up with repeat chest x-ray as patient having some vascular congestion. Continue IV Lasix daily and follow-up with repeat labs. Replace electrolytes per protocol. Recommend aspiration precautions and having the head of the bed elevated 30 to 45 degrees at all times and supervision with meals. 08/02/2023 Patient is seen and evaluated in follow-up today with multiple medical consultations following. GI was consulted with concerns of possible GI bleed although no active bleeding noted and hemoglobin is stable above 8. Patient is status post IVC filter placement and not a candidate for anticoagulation. Cardiology following and patient has been maintained on IV Lasix which is increased to twice daily per pulmonary. Patient to follow-up with chest x-ray and also continue with breathing treatments. Antibiotics have been discontinued and patient has received adequate antibiotics during hospitalization. Patient being transition to oral prednisone. No plans of endoscopic intervention at this time and will follow-up in the outpatient setting as needed. Patient with significant weakness and per nursing staff bilateral heel wounds unstageable, present on admission and there is continued noted left foot drop. Per nursing staff patient is two-person max assist and was at [facility] post hip fracture. Plan is for returning to [facility] on discharge. Patient is afebrile and denies chest pain or shortness of breath. Patient has been tolerating diet and would recommend continuing with aspiration precautions. 08/03/2023 Patient is evaluated today currently sitting up in the chair reports some improvements in shortness of breath. Patient is continued on breathing inhalational treatments and has been transition to oral prednisone. Patient has completed a course of antibiotics and being closely monitored off antibiotic therapy. Continue current regimen including IV Lasix for an additional 24 hours and will follow-up on repeat labs and possibly transition to oral Lasix. Cardiology following as well. Currently off anticoagulation and hemoglobin remained stable above 8.1. 08/04/2023 Patient is seen in follow-up today being watched off antibiotic therapy currently maintained on 4 L of oxygen maintaining oxygen saturations above 95%. Patient continued on treatments and has been transition to Lasix daily and will follow-up with repeat chest x-ray in a.m. Patient with significant weakness needs to be reevaluated by physical therapy and discuss further with case management/social work regarding discharge planning as patient will be returning to [facility]. Patient is afebrile and denies chest pain or shortness of breath. Hemoglobin is stable status post IVC filter placement. 08/04 Patient is seen in follow-up with no acute overnight issues noted. Patient being followed by multiple medical consultations showing some improvements although slow to improve. Patient continues with significant weakness and plans on returning to [facility]. Awaiting follow-up labs and replace electrolytes per protocol. Patient being transition from IV Lasix. Encouraged oral intake. Review of systems: Constitutional: No reports of fatigue, fever, or chills Cardiovascular: No reports of chest pain or palpitations Respiratory: No reports of worsening shortness of breath, reports weak cough that is chronic GI: No reports of nausea, vomiting, or diarrhea : No reports of dysuria or retention, no further hematuria Neurovascular: reports of extreme generalized weakness All medications have been reviewed PHYSICAL EXAMINATION: Patient is sitting up in the chair., awake alert and oriented x 2, Baseline. Currently on 4 L via nasal cannula, well-developed, thin built, elderly appearing, ill-appearing HEENT: Normocephalic. Neck is supple. Pupils reactive. Nostrils clear. Oral cavity is moist. Neck reveals no JVD, carotid bruits, or thyromegaly. CHEST EXAMINATION: Trachea is central. Symmetrical expansion. Left basilar coarse sounds. Mild expiratory wheeze.. Crackles noted at the bases, bronchial congestion noted with minimal improvement CARDIAC: S1, S2 are muffled ABDOMEN: Soft. Thin. Bowel sounds normal. No organomegaly. No abdominal bruits. Extremities: reveal no edema. No clubbing or cyanosis, bilateral lower extremity swelling improving , foot drop noted on the left as well. Left hip surgical site has scabbing noted with no redness or drainage noted, healing well and approximated Neurologically awake, alert, oriented x 2-3. Diffusely weak Skin: No rash or skin lesions. Pale, bilateral heel unstageable ulcers noted Psychiatric: Cooperative. Could not be assessed completely Musculoskeletal: No joint swelling or deformity. Assessment: Acute on chronic hypoxemic respiratory failure due to left lower lobe pneumonia and left sided pleural effusion and COPD. Patient was requiring BiPAP on admission. Transitioned to nasal cannula, currently 4 L. Patient was chronically wearing 2 to 3 L outpatient. Acute on chronic congestive heart failure with systolic dysfunction Acute on chronic anemia, acute blood loss secondary to anticoagulation and hematuria Hematuria, possibly secondary to resumption of anticoagulation versus possible trauma as patient does occasionally pull at IVs and tubings. Resolved Sepsis secondary to pneumonia, bacterial, present on admission Acute left lower extremity DVT. Elevated D-dimer level. CT PE could not be done due to elevated creatinine level. Right upper extremity arm swelling, DVT ruled out, thrombus of the cephalic vein from an IV site Acute kidney injury likely prerenal with possible ATN. CKD stage III. Hypovolemic hyponatremia, secondary to poor oral intake Lactic acidosis 3.1 on admission, secondary to left lower lobe pneumonia, improved History of mechanical fall status post left hip cemented unipolar hemiarthroplasty on 07/05/2023 Recent admission with anemia requiring blood transfusion 1 unit PRBC. Paroxysmal atrial fibrillation, currently rate controlled status post IVC filter placement Nonischemic cardiomyopathy with ejection fraction 45 to 50%. EF improved to 55 to 60% as per recent echocardiogram on 07/05/2023 Coronary artery disease nonobstructive Bilateral heel unstageable ulcers, present on admission Hypertension Hyperlipidemia History of tobacco use History of EtOH abuse GI prophylaxis with PPI DVT prophylaxis, anticoagulant being held due to anemia, status post IVC filter placement No code Plan: Patient is being followed by multiple consultations maintained on 4 L via nasal cannula and oxygen saturation is 99%. Pulmonary following and has discontinued antibiotics and has been transitioned to oral steroid taper. Patient will continue with breathing treatments. Follow-up chest x-ray ordered for a.m. Patient is status post IVC filter placement and hemoglobin is stable above 8 with no active bleeding noted currently off anticoagulation GI has evaluated the patient and hemoglobin is stable with no active bleeding noted recommending outpatient follow-up with endoscopic if needed Patient will continue on IV Lasix twice daily and follow-up with repeat labs and replace electrolytes per protocol. Cardiology following and will likely transition to oral Lasix in the next 24 hours patient is not a good candidate for anticoagulation given significant anemia and drop in hemoglobin along with recurrent frequent falls Patient with extensive cardiac history with cardiology following, concerns of acute CHF exacerbation and will continue IV Lasix twice daily. Follow-up on labs and replace electrolytes per protocol Recommend PT/OT therapy evaluation, case management following as patient will be returning to ECF on discharge Continue with wound care, consult to wound for unstageable ulcers noted on bilateral heels and appreciate input and recommendations Home medications reviewed and resumed as appropriate Recommend sitting up in the chair more often and up and out of the bed at least 3 times daily Patient is no code. Family would like patient to get stronger and return to ECF. Not interested in hospice at this time Possible discharge planning Saturday or Saturday to ECF. Due to multiple complex medical issues, prognosis is guarded The impression and plan of care has been dictated by Akila Clemente, Nurse Practitioner as directed. Dr. Lj MD I have performed a history and examination and MDM of this patient, discussed with the dictator, and agree with the dictator's assessment and plan as written ,documented as a scribe. Based on total visit time, I have performed more than 50% of the visit. Objective - Vital Signs Vital signs: Vital Signs Temp 97.6 F 08/05/23 06:54 Pulse 69 08/05/23 06:54 Resp 18 08/05/23 06:54 BP 121/57 08/05/23 06:54 Pulse Ox 94 L 08/05/23 08:57 FiO2 40 07/23/23 02:57 Intake & Output 08/04/23 08/05/23 08/05/23 18:59 06:59 18:59 Intake Total 200 Output Total 1450 1999 Balance -1450 -1800 Weight 74 kg 73 kg Intake: Oral 200 Output: Urine 1450 1999 Other: Voiding Method Indwelling Catheter Indwelling Catheter # Bowel Movements 1 1 - Labs CBC & Chem 7: 08/05/23 08:08 08/06/23 06:34 Labs: Abnormal Lab Results - Last 24 Hours (Table) 08/04/23 Range/Units 06:06 BUN 33.9 H (9.0-27.0) mg/dL BUN/Creatinine Ratio 30.82 H (12.00-20.00) Ratio Glucose 139 H (70-110) mg/dL Calcium 7.6 L (8.7-10.3) mg/dL
--- NOTE | 2023-08-06 16:59 | P.PN ---
Subjective Progress Note Date: 08/06/23 Patient is a 88-year-old male with a past medical history of hypertension, hyperlipidemia, paroxysmal atrial fibrillation coronary artery disease nonobstructive, mild cardiomyopathy ejection fraction 45-50 %, history of right tobacco smoker and left hip hemiarthroplasty on 07/05/2023 due to mechanical fa ll. Patient presented from nursing facility due to worsening shortness of breath/dyspnea. Patient was diagnosed with pneumonia and was started on doxycycline. He was placed on oxygen at 4 L via nasal cannula and EMS was called due to hypoxia with pulse ox down to 80% and patient was tachycardic and tachypneic. Patient was placed on BiPAP by EMS and was transferred to ER. Otherwise patient denies any complaints of chest pain. Cough with occasional sputum production. Tmax 101.0 on admission. Patient was recently admitted to due to acute blood loss anemia from 07/11/2023 to 07/12/2023. requiring 1 unit PRBC transfusion. Eliquis was held and was discharged back to senior care facility for rehab. Chest x-ray showed chronic parenchymal changes with new small left pleural effusion and left lower lobe acute infiltrates/atelectasis. EKG showed sinus tachycardia with possible left atrial enlargement. Lower extremity venous duplex showed suboptimal study. Long segment left lower extremity DVT is present. Findings reflect chronic clot or partially occlusive thrombus. Correlate clinically. Mild to moderate diffuse subcutaneous edema is seen on images obtained. Laboratory data showed WBC 13.7 hemoglobin 8.9 and platelets 708, D-dimer 4.11 ABG showed pH 7.35 pCO2 39, pO2 183 Sodium 130 potassium 4.9 chloride 97 bicarb is 19 BUN 59 and creatinine 2.09 and blood sugar 106 and lactic acid 3.1 total bilirubin 3.5 and alk phos 268, proBNP 5700, troponin 0.027 and albumin 2.8 Influenza A, B, RSV and COVID-19 PCR not detected. 07/23/2023 Patient is seen and evaluated in follow-up. Patient was continued on BiPAP and is currently maintaining oxygen saturations above 90% on 3 L. Patient continues on IV heparin drip with left lower extremity DVT. VQ scan was ordered as jean t was unable to have CT of the chest for PE evaluation as kidney functions are elevated. Will hold on VQ scan for now as patient unable to tolerate lying flat. Continue IV heparin and will likely need to transition back to Eliquis. 07/24/2023 Patient is seen and evaluated in follow-up today with pulmonary following. Patient continues on 3 L via nasal cannula and has been off of the BiPAP. Fol low-up chest x-ray today shows increasing left lower lobe pleural effusion with associated atelectasis and/or infiltrate. Strongly encourage incentive spirometer although patient needs much encouragement as he is extremely weak and confused at times. Patient continues on IV heparin and will for now as there will be a follow-up chest x-ray in the a.m. and may require a thoracentesis with pulmonary following closely. Will discuss with pulmonary in regards to transitioning to Eliquis or if patient is appropriate for any further anticoagulation. Patient is afebrile with no reported chest pain or worsening shortness of breath. Patient is continued on IV steroids along with antibiotics and DuoNeb breathing treatments. Encouraged oral intake and recommend aspiration precautions with head of the bed elevated 45 degrees at all times. 07/25/2023 Patient is seen this morning currently asleep although arousable. Patient maintained on 3 L via nasal cannula with pulmonary following. Follow-up chest x-ray shows stable effusion and pulmonary reporting no plans for thoracentesis at this time. Patient was continued on IV heparin although will transition to oral Eliquis and monitor for any bleeding. There are no active signs of bleeding at this time although hemoglobin was noted to be 6.6 today. Will transfuse 1 unit of PRBC follow-up on repeat labs. Patient continues on antibiotics sided pneumonia. Patient is afebrile and denies any chest pain or palpitations. Patient has a congested cough and difficulty expectorating. Encouraged incentive spirometer use and sitting up more often. Continue with DuoNeb treatments at this time. 07/26/2023 Patient is seen and evaluated in follow-up status post 1 unit of PRBC. Hemoglobin is 7.4 today with no active bleeding noted. Patient continues on DuoNeb treatments and will continue on antibiotics with pulmonary following closely. 07/27/2023 Patient is currently lying in the bed. Awake alert. Still having shortness of breath and oxygen requirement at 3 L via nasal cannula. Patient is on antibiotics in the form of vancomycin and Zosyn. Nasal swab cultures positive for MRSA. Patient is also on IV Solu-Medrol 60 mg every 6 hourly and DuoNebs. Patient was started back on anticoagulation with heparin drip. Vascular surgery was consulted. DVT. Chest x-ray showed unchanged left pleural effusion with associated atelectasis or infiltrate. Laboratory data showed WBC 8.0 hemoglobin 8.1 and platelets 288 INR 1.3. FOBT negative. 07/28/2023 Patient is lying in the bed. Awake alert but lethargic and weak. And currently requiring 4 L oxygen via nasal cannula. Currently on heparin drip due to lower extremity DVT and also on IV antibiotics. Hemoglobin is fairly stable at 7.6. No hematuria noted. Patient is also being continued on IV Solu-Medrol and DuoNebs. Pulmonary is on board. Vascular surgery was consulted. Patient does have significant right upper extremity swelling with possible extravasation of the IV line. Duplex scan was ordered to rule DVT. Laboratory showed WBC 6.8 hemoglobin 7.6 and platelets 265 Sodium 139 potassium 3.5 chloride 110 bicarb is 23 BUN 53 and creatinine 1.24 and blood sugar 166. Calcium 8.0. 07/29/2023 Patient is seen in follow-up today with multiple medical consultations hilario bee. Patient is continued on 5 L via nasal cannula although 99% and discussed with nursing staff about weaning FiO2 as tolerated. Patient continues on IV heparin for lower extremity DVT and hemoglobin is stable above 7. No further hematuria noted. Vascular surgery consulted for possible IVC filter placement as patient is a poor candidate for anticoagulation. Patient continues with some right upper extremity swelling and DVT was ruled out, difficult to exclude a thrombus in the cephalic vein where an IV was placed. Continue with supportive care and elevating that extremity. Patient with significant weakness recommend PT/OT therapy daily. Patient will be returning to [facility] once cleared by consultations. Will await vascular surgery evaluation. Patient to continue on breathing inhalational treatments along with antibiotics and IV steroids. Pulmonary health educator following. 07/30/2023 Patient is seen and evaluated this morning currently scheduled to undergo IVC filter placement as patient has been having drops in hemoglobin with no specific bleeding noted. Hematuria has resolved and was brief as patient continues with indwelling Howard catheter and urine is clear. Patient was initiated back on IV heparin for acute DVT in the left lower extremity although having complications with reduced hemoglobin, vascular was consulted for IVC filter. Patient is not a good candidate for anticoagulation. Hemoglobin was 6.1 today and will transfuse 2 units with Lasix in between and consult GI and appreciate input and recommendations. Patient denies any bleeding or difficulties with tolerating diet. Per nursing staff patient has had bowel movements that are brown with no blood noted, no dark melanotic stools noted. Patient is continued on antibiotics with pulmonary following as well congested weak cough likely chronic. Will obtain a chest x-ray. 07/31/2023 Patient is seen in follow-up with multiple medical consultations following his IVC filter placement. Patient had significant electrolyte and hemoglobin abnormalities this morning and awaiting repeat labs as patient received 2 units yesterday and hemoglobin was noted to be 6.1 again today. Repeat labs ordered and pending. Patient with critically low potassium and magnesium also awaiting repeat and will replace per protocol. Patient denies any bleeding or pain. Patient is maintained on antibiotics with pulmonary following with concerns of pneumonia on admission. Patient tolerating diet and denies any nausea or vomiting. GI has been consulted with concerns of possible GI bleed. Cardiology will be consulted as well for CHF. Will initiate low-dose Lasix and follow-up on repeat labs in the a.m. 08/01/2023 Patient is seen in follow-up today and hemoglobin remained stable above 8 with no active bleeding noted. GI consulted with concerns of possible GI bleed as patient had continued drop in hemoglobin. Patient is off anticoagulation and status post IVC filter placement. Not a good candidate for anticoagulation. Iron studies ordered and within normal limits. Will follow-up with repeat chest x-ray as patient having some vascular congestion. Continue IV Lasix daily and follow-up with repeat labs. Replace electrolytes per protocol. Recommend aspiration precautions and having the head of the bed elevated 30 to 45 degrees at all times and supervision with meals. 08/02/2023 Patient is seen and evaluated in follow-up today with multiple medical consultations following. GI was consulted with concerns of possible GI bleed although no active bleeding noted and hemoglobin is stable above 8. Patient is status post IVC filter placement and not a candidate for anticoagulation. Cardiology following and patient has been maintained on IV Lasix which is increased to twice daily per pulmonary. Patient to follow-up with chest x-ray and also continue with breathing treatments. Antibiotics have been discontinued and patient has received adequate antibiotics during hospitalization. Patient being transition to oral prednisone. No plans of endoscopic intervention at this time and will follow-up in the outpatient setting as needed. Patient with significant weakness and per nursing staff bilateral heel wounds unstageable, present on admission and there is continued noted left foot drop. Per nursing staff patient is two-person max assist and was at [facility] post hip fracture. Plan is for returning to [facility] on discharge. Patient is afebrile and denies chest pain or shortness of breath. Patient has been tolerating diet and would recommend continuing with aspiration precautions. 08/03/2023 Patient is evaluated today currently sitting up in the chair reports some improvements in shortness of breath. Patient is continued on breathing inhalational treatments and has been transition to oral prednisone. Patient has completed a course of antibiotics and being closely monitored off antibiotic therapy. Continue current regimen including IV Lasix for an additional 24 hours and will follow-up on repeat labs and possibly transition to oral Lasix. Cardiology following as well. Currently off anticoagulation and hemoglobin remained stable above 8.1. 08/04/2023 Patient is seen in follow-up today being watched off antibiotic therapy currently maintained on 4 L of oxygen maintaining oxygen saturations above 95%. Patient continued on treatments and has been transition to Lasix daily and will follow-up with repeat chest x-ray in a.m. Patient with significant weakness needs to be reevaluated by physical therapy and discuss further with case management/social work regarding discharge planning as patient will be returning to [facility]. Patient is afebrile and denies chest pain or shortness of breath. Hemoglobin is stable status post IVC filter placement. 08/04 Patient is seen in follow-up with no acute overnight issues noted. Patient being followed by multiple medical consultations showing some improvements although slow to improve. Patient continues with significant weakness and plans on returning to [facility]. Awaiting follow-up labs and replace electrolytes per protocol. Patient being transition from IV Lasix. Encouraged oral intake. 08/06/2023 Patient is seen in follow-up today with no acute overnight issues. Patient is having lower blood pressure readings and reports to feeling fatigued today and not eating much. Patient has not been eating much throughout hospitalization. Recommend aspiration precautions and supervision with meals. Would also recommend Ensure supplements between meals. Chest x-ray showed some pulmonary venous congestion with mild interstitial edema bilateral pleural effusions that were slightly smaller in size and overall appearance seems slightly improved. Has been transitioned to oral Lasix and awaiting repeat labs today. Per nursing staff blood pressures have been low including manuals and will give 1 dose of midodrine and add as needed midodrine as well. Patient has been encouraged to increase oral intake. Patient remains no code and family would like patient to return to [facility] on discharge. Plan is for return to [facility]. Possible discharge planning in the next 24 hours. Review of systems: Constitutional: No reports of fatigue, fever, or chills Cardiovascular: No reports of chest pain or palpitations Respiratory: No reports of worsening shortness of breath, reports weak cough that is chronic GI: No reports of nausea, vomiting, or diarrhea, reports not eating very much and not much of an appetite : No reports of dysuria or retention, no further hematuria Neurovascular: reports of extreme generalized weakness All medications have been reviewed PHYSICAL EXAMINATION: Patient is sitting up in the chair., awake alert and oriented x 2, Baseline. Currently on 4 L via nasal cannula, well-developed, thin built, elderly appearing, ill-appearing HEENT: Normocephalic. Neck is supple. Pupils reactive. Nostrils clear. Oral cavity is moist. Neck reveals no JVD, carotid bruits, or thyromegaly. CHEST EXAMINATION: Trachea is central. Symmetrical expansion. Left basilar coarse sounds. Mild expiratory wheeze.. Crackles noted at the bases, bronchial congestion noted with minimal improvement CARDIAC: S1, S2 are muffled ABDOMEN: Soft. Thin. Bowel sounds normal. No organomegaly. No abdominal bruits. Extremities: reveal no edema. No clubbing or cyanosis, bilateral lower extremity swelling improving , foot drop noted on the left as well. Left hip surgical site has scabbing noted with no redness or drainage noted, healing well and approximated Neurologically awake, alert, oriented x 2-3. Diffusely weak Skin: No rash or skin lesions. Pale, bilateral heel unstageable ulcers noted Psychiatric: Cooperative. Could not be assessed completely Musculoskeletal: No joint swelling or deformity. Assessment: Acute on chronic hypoxemic respiratory failure due to left lower lobe pneumonia and left sided pleural effusion and COPD. Patient was requiring BiPAP on admission. Transitioned to nasal cannula, currently 4 L. Patient was chronically wearing 2 to 3 L outpatient. Acute on chronic congestive heart failure with systolic dysfunction Acute on chronic anemia, acute blood loss secondary to anticoagulation and hematuria Hematuria, possibly secondary to resumption of anticoagulation versus possible trauma as patient does occasionally pull at IVs and tubings. Resolved Sepsis secondary to pneumonia, bacterial, present on admission Acute left lower extremity DVT. Elevated D-dimer level. CT PE could not be done due to elevated creatinine level. Right upper extremity arm swelling, DVT ruled out, thrombus of the cephalic vein from an IV site Acute kidney injury likely prerenal with possible ATN. CKD stage III. Hypovolemic hyponatremia, secondary to poor oral intake Lactic acidosis 3.1 on admission, secondary to left lower lobe pneumonia, improved History of mechanical fall status post left hip cemented unipolar hemiarthroplasty on 07/05/2023 Recent admission with anemia requiring blood transfusion 1 unit PRBC. Paroxysmal atrial fibrillation, currently rate controlled status post IVC filter placement Nonischemic cardiomyopathy with ejection fraction 45 to 50%. EF improved to 55 to 60% as per recent echocardiogram on 07/05/2023 Coronary artery disease nonobstructive Bilateral heel unstageable ulcers, present on admission Hypertension although currently hypotensive, likely hypovolemic from poor oral intake and continued IV diuresis Hyperlipidemia History of tobacco use History of EtOH abuse GI prophylaxis with PPI DVT prophylaxis, anticoagulant being held due to anemia, status post IVC filter placement No code Plan: Patient is being followed by multiple consultations maintained on 4 L via nasal cannula and oxygen saturation is 99%. Pulmonary following and has discontinued antibiotics and has been transitioned to oral steroid taper. Patient will continue with breathing treatments. Chest x-ray continues to show pleural effusions although smaller and stable Patient is status post IVC filter placement and hemoglobin is stable above 8 with no active bleeding noted currently off anticoagulation GI has evaluated the patient and hemoglobin is stable with no active bleeding noted recommending outpatient follow-up with endoscopic if needed Patient has been transition to oral Lasix twice daily and follow-up with repeat labs and replace electrolytes per protocol. patient is not a good candidate for anticoagulation given significant anemia and drop in hemoglobin along with recurrent frequent falls Recommend PT/OT therapy evaluation, case management following as patient will be returning to ECF on discharge Continue with wound care, consult to wound for unstageable ulcers noted on bilateral heels and appreciate input and recommendations Home medications reviewed and resumed as appropriate Patient's blood pressure on the lower side and will add midodrine as needed. Recommend sitting up in the chair more often and up and out of the bed at least 3 times daily Patient is no code. Family would like patient to get stronger and return to ECF. Not interested in hospice at this time Possible discharge in the next 24 to 48 hours due to multiple complex medical issues, prognosis is guarded The impression and plan of care has been dictated by Akila Clemente, Nurse Practitioner as directed. Dr. Lj MD I have performed a history and examination and MDM of this patient, discussed the same with the dictator, and agree with the dictator's assessment and plan as written ,documented as a scribe. Based on total visit time, I have performed more than 50% of the visit. Objective - Vital Signs Vital signs: Vital Signs Temp 98.8 F 08/06/23 12:15 Pulse 75 08/06/23 15:42 Resp 18 08/06/23 12:15 BP 91/54 08/06/23 15:42 Pulse Ox 98 08/06/23 15:42 FiO2 40 07/23/23 02:57 Intake & Output 08/05/23 08/06/23 08/06/23 18:59 06:59 18:59 Output Total 1825 300 Balance -1825 -300 Weight 73.5 kg 73.5 kg Output: Urine 1825 300 Other: Voiding Method Indwelling Catheter Indwelling Catheter Indwelling Catheter # Bowel Movements 1 2 - Labs CBC & Chem 7: 08/05/23 08:08 08/06/23 06:34 Labs: Abnormal Lab Results - Last 24 Hours (Table) 08/06/23 Range/Units 06:34 Sodium 134 L (135-145) mmol/L Chloride 95 L (96-109) mmol/L BUN 34.7 H (9.0-27.0) mg/dL BUN/Creatinine Ratio 31.55 H (12.00-20.00) Ratio Glucose 125 H (70-110) mg/dL Calcium 8.2 L (8.7-10.3) mg/dL
[2023-08-06] MEDS: MIDODRINE 5 MG TAB PO SCH (17:58)
[2023-08-06] MEDS: methylPREDNISolone SOD SUCCI 125 MG/2 ML VIAL IV STA (20:39)
--- NOTE | 2023-08-07 11:15 | XR ---
EXAMINATION TYPE: XR chest 1V portable DATE OF EXAM: 08/07/2023 HISTORY: Shortness of breath. COMPARISON: 08/05/2023 TECHNIQUE: Single view of the chest is submitted. FINDINGS: Increased coarse density right upper lobe could reflect developing infiltrate. Bilateral small pleural effusions left greater than right with right basilar infiltrate or atelectasi s. Continued pulmonary venous congestion. The heart is stable. Hilar and mediastinal structures are within normal limits. Degenerative changes are seen of the dorsal spine. IMPRESSION: 1. Increased coarse density right upper lobe could reflect developing infiltrate. 2. Bilateral small pleural effusions left greater than right with right basilar infiltrate or atelec tasis. Continued pulmonary venous congestion.
--- NOTE | 2023-08-07 13:59 | P.PN ---
Subjective Progress Note Date: 08/07/23 Patient is an 88-year-old male with past medical history significant for hypertension, hyperlipidemia, paroxysmal atrial fibrillation previously anticoagulated on Eliquis, frequent falls. Patient recently fell from his wheelchair and had sustained a left hip fracture. He underwent a left hip cemented unipolar hemiarthroplasty on 07/05/2023. He was then discharged back to his extended care facility. Patient was sent back in from his ECF yesterday for evaluation of acute dyspnea. He was reportedly diagnosed with pneumonia earlier in the day, and started on doxycycline. When EMS arrived to the [facility], he was hypoxic with an SpO2 of less than 80%. He was also tachypneic and tachycardic and in respiratory distress. He was transferred to our facility on BiPAP. He is currently sitting up in bed, in some respiratory distress. On BiPAP with settings 12/6 and FiO2 of 100%. Respiratory rate is in the mid 30s and tidal volumes are greater than 800. He is unable to provide any information at this time. There is accessory muscle use. ABG done on above-mentioned settings showed a PaO2 of 183, pCO2 of 39, pH of 7.35. Chest x-ray shows a left lower lobe infiltrate and or atelectasis and small left-sided pleural effusion, possibly parapneumonic. CBC on arrival: WBC count of 30.7, hemoglobin 8.9, hematocrit 27.8, platelets 708. CMP on arrival: Sodium 130, potassium 4.9, chloride 97, serum bicarb 19, BUN 59, creatinine 2.09, glucose 106. Normal saline infusing at 130 MLS per hour. LFTs mildly elevated. Troponin 0.027. NT proBNP 5700. There is a component of acute on chronic kidney injury. Negative for influenza, RSV, COVID. Patient's D-dimer was elevated. For this reason a venous Doppler of the lower extremities was ordered, and the patient was found to have a left lower extremity DVT. Patient was previously anticoagulated on Eliquis, however, this has been stopped after his most recent fall and hip fracture. Left hip incision is approximated and clean and dry. No drainage. Hemoglobin is stable at 8.9 g/dL. Patient denies any bright red blood, melanotic stools, or hematemesis. Patient's respiratory status is currently labile, will continue to closely monitor. Patient may need transfer to the intensive care unit. In the emergency department and I had a lengthy discussion with the . The patient is currently on a BiPAP and is tolerating the BiPAP reasonably well with generation of adequate tidal volume above 500. No significant tachypnea. The patient is on a pressure setting of 12/6 and a meters of water and FiO2 has been weaned down.The white cell count from today is 29 with a hemoglobin of 7.6 and a platelet count of 527. Blood gases show a pH of 7.35 with a pCO2 of 39 and pO2 of 183 and this was on FiO2 of 100%. Viral screen has been negative and the procalcitonin level is at 4.2. BUN is at 69 with a creatinine of 2.09. Cultures were sent and the results are still pending for now. The chest x-ray showed a new area of consolidation of the left lower lobe in addition to a small left-sided pleural effusion. Ultrasound of the chest was also ordered and the results were consistent with a small left-sided pleural effusion with a 4.2 cm pocket. 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 Noted the patient was on anticoagulation with Eliquis in the past and this anticoagulation was discontinued because of his frequent falls. Noted the procalcitonin level is elevated at 4.2 On today's evaluation of 07/23/2023, seen the patient for a follow-up. The patient got moved out of the emergency department and the patient is currently on the medical floor. He was taken off the BiPAP this morning and the patient is currently on 2 L of O2 with a pulse ox of 98%. Alert awake and communicating. The white cell count is dropped down to 17.4 with a hemoglobin of 8.2 and a platelet count of 579. Hemodynamically stable. There is also interval improvement in the creatinine which is down to 1.43 with a BUN of 61. Sodium levels at 134. The patient remains on a combination of Zosyn and vancomycin. Remains on bronchodilators. Remains on IV Solu-Medrol 60 mg every 6 hours. The patient is also on IV heparin. PTT is therapeutic at this point in time. No evidence of any bleeding. Awake and alert and communicating. On today's evaluation of 07/24/2023, the patient is being seen for a follow-up. Clinically stable and the patient is currently on liters of oxygen by nasal cannula with a pulse ox of 94%. Repeat chest x-ray was done today and it shows some increase in the left lower lobe pleural effusion. There is also some infiltration/atelectasis. However clinically, the patient is stable. The patient is currently off the BiPAP. He has developed a small left-sided pleural effusion, likely parapneumonic in nature. Ultrasound of the chest was done yesterday showed a 4.2 cm pocket in the left lung. The WBC count is at 10.1 whi ch is improved with a hemoglobin of 7.7 slightly lower compared to yesterday with a platelet count of 537. Rest of the electrolytes are still pending. The patient remains on IV heparin. Remains on Zosyn and vancomycin coverage. No significant tachycardia. The patient is on DuoNeb updrafts. The patient on IV Solu-Medrol. The patient on Zosyn and vancomycin. The patient is on metoprolol 12.5 mg p.o. twice a day. On today's evaluation on 07/25/2023, the patient continues to improve. The white cell count is down to 7.8. The patient remains on 3 L of oxygen by nasal cannula. No significant respite distress. Repeat chest x-ray was done today and shows a stable left-sided pleural effusion that has not changed in size and the patient also has some stable infiltration of the left lung base consistent with pneumonia but small parapneumonic effusion. Hemoglobin is currently down to 6.6. The patient will be given a unit of packed RBC accordingly. Rest of the electrolytes show a creatinine of 1.33 with a BUN of 56 and a sodium levels at 138 with a potassium level of 4.1. The patient remains on IV heparin. He does have a DVT of the left lower extremity. No evidence of any GI bleeding at this point in time while being on IV heparin. On today's evaluation on 07/26/2023, the patient is being seen for a follow-up. The patient was given a unit of packed RBC yesterday and the hemoglobin is currently at 7.4. He is on oxygen 3 L with a pulse ox of 92%. He is lethargic and weak. Nevertheless denies having any significant shortness of breath. No chest pain. Remains on Zosyn and vancomycin. Nasal screen for MRSA was positive. Possibility of MRSA pneumonia cannot be completely excluded. The patient also developed a small parapneumonic effusion not amenable for thoracen tesis. He is a DNR/DNI CODE STATUS. Remains on bronchodilators. Remains on steroids. In addition, the patient is experiencing some hematuria at baseline and anticoagulation was stopped. Based on his high risk for anticoagulation and previous history of falls and concern for bleed, anticoagulation was placed on hold and vascular surgery was consulted for IVC filter placement. On today's evaluation, the patient is essentially unchanged remains on 3 L of oxygen by nasal cannula with a pulse ox of 97%. Chest x-ray was repeated this morning and the patient has an unchanged left-sided pleural effusion and left lower lobe consolidation. Remains on Zosyn and vancomycin. Labs from today shows a white cell count of 8 with a hemoglobin of 8 and a platelet count of 329. Electrolytes are within normal limits from yesterday. Creatinine is down to 1.2. No active hematuria and patient will be placed back on IV heparin pending vascular surgery consult 07/28/2023, patient is being seen for a follow-up. The patient is currently on oxygen at 4 L. Calm and comfortable. Noted frustrated. He is weak and quite debilitated at this point in time. He remains on Zosyn and vancomycin. He remains on IV heparin. No evidence of any hematuria. Howard catheter is in place. Hemoglobin is at 7.6. BUN is 53 with creatinine 1.24 levels at 139. Limited congested cough. No significant sputum production. He did encounter some swelling l upper extremity and a Doppler showed no evidence of any DVT in the right upper extremity. Nonocclusive thrombus was seen within the right cephalic vein. The patient is seen today July 29, 2023 in follow-up on the regular medical floor. He is currently sitting up in bed. Awake and alert in no acute distress. He is maintaining good O2 saturations in the upper 90s on 5 L/min per nasal cannula. He is afebrile. Hemodynamically stable. He remains on a heparin drip. Continued on bronchodilators and steroids. Antibiotics in the form of vancomycin and Zosyn. The patient is seen today July 30, 2023 in follow-up on the regular medical floor. He is awake and alert in no acute distress. He is maintaining O2 saturations in the 90s on 5 L/min per nasal cannula. White count 4.5. Hemoglobin 6.1. Platelets 173. Creatinine 1.24. He remains on a heparin drip. The plan is for IVC filter placement today. Packed red blood cell transfusion has been ordered. Remains on vancomycin and Zosyn. Continued on Flovent, albuterol, Spiriva. Remains on IV Solu-Medrol. The patient is seen today July 31, 2023 in follow-up on the regular medical floor. He is sitting up in bed. Awake and alert in no acute distress. Continuing to maintain O2 saturations in the 90s on 5 L/min per nasal cannula. He has been afebrile. Hemodynamically stable. He did go for IVC filter placement yesterday. Groin site is stable. Blood and sputum cultures revealed no growth. White count 6.6. Hemoglobin 6.1. Platelets 111. He is status post 3 units of packed red blood cells this admission. He remains on Serevent, Flovent, Spiriva. Remains on IV Solu-Medrol. Remains on antibiotics in the form of vancomycin and Zosyn. The patient is seen today August 01, 2023 in follow-up on the regular medical floor. He is awake and alert in no acute distress. Sitting up in bed having breakfast. Denies any worsening shortness of breath, cough or congestion. He is maintaining good O2 saturations in the upper 90s on 6 L/min per nasal cannula. He is afebrile. Hemodynamically stable. He is status post 3 units of packed red blood cells this admission. Blood culture revealed no growth. Sputum culture revealed no growth. White count 8.7. Hemoglobin 8.4. Platelets 155. Sodium 135. Potassium 3.6. Bicarb 21. BUN 48. Creatinine 1.17. Glucose 153. He remains on bronchodilators, steroids. Antibiotics in the form of vancomycin and Zosyn. The patient is seen today August 02, 2023 in follow-up on the regular medical floor. He is currently sitting up in bed. Awake and alert in no acute distress. He denies any worsening shortness of breath, cough or congestion. He is still requiring 5 L high flow nasal cannula to maintain O2 saturations in the 90s. His chest x-ray is showing evidence of increasing pulmonary edema. He is currently on Lasix 40 mg p.o. daily. He remains afebrile. Hemodynamically stable. He is status post 3 units of packed red blood cells this admission. Current hemoglobin 8.1. Platelets 179. White count 12.0. Sodium 134. Potassium 3.4. Bicarb 24. BUN 42. Creatinine 1.02. Glucose 152. He completed his course of antibiotics. The patient is seen today August 03, 2023 in follow-up on the regular medical floor. He is awake and alert in no acute distress. Denies any worsening shortness of breath, cough or congestion. He is on 4 L nasal cannula with O2 saturations in the 90s. His chest x-ray is showing bibasilar infiltrates. He does have some continued crackles in the bases more so on the left. He has less swelling in his feet and hands. He has diuresed over 2 L yesterday and again today. He remains on Lasix 40 mg IV every 12 hours. White count 11.1. Hemoglobin 8.1. Platelets 198. Sodium 132. Potassium 4.2. Bicarb 22. Creatinine 0.93. BUN 38. Glucose 171. He is continued on bronchodilators. Continued on prednisone taper. The patient is seen today August 04, 2023 in follow-up on the regular medical floor. He is sitting up in bed having lunch. Denies any worsening shortness of breath, cough or congestion. No chest pain or palpitations. He is continued on Lasix 40 mg every 12 hours. Remains on bronchodilators. Maintain O2 saturation in the 90s on 4 L/min per nasal cannula. He has received 3 units of packed red blood cells this admission. Current hemoglobin 8.7. Platelets 217. White count 15.5. Sodium 135. Potassium 4.6. Bicarb 25. BUN 34. Creatinine 1.1. Glucose 139. He is currently in a -3.7 L balance. The patient is seen today August 05, 2023 in follow-up on the regular medical floor. He is currently resting comfortably in bed. Awake and alert in no acute distress. Maintaining good O2 saturations in the 90s on 4 L/min per nasal cannula. Chest x-ray is showing improved aeration. There is pulmonary venous congestion with mild interstitial edema. Improved bilateral pleural effusions. White count 14.1. Hemoglobin 8.7. Platelets 271. Sodium 128. Potassium 4.0. Bicarb 31. BUN 35. Creatinine 1.05. Glucose 136. He is continued on [facility] hodilators, prednisone. Remains on IV diuretics. Currently on a negative 3.2 L balance. He is status post 3 units of packed red blood cells this admission. The patient is seen today August 06, 2023 in follow-up on the regular medical floor. He is awake and alert in no acute distress. Feeling better today compared to yesterday. He has been slow to progress. He remains quite weak and debilitated. Continues to maintain good O2 saturations in the 90s on 4 L/min per nasal cannula. He is afebrile. Hemodynamically stable. He is status post 3 units of packed red blood cells this admission. Current hemoglobin 8.7. Blood and sputum culture had revealed no growth. Nasal swab was positive for MRSA. He has been transition to oral diuretics. Currently in -2.1 L balance. He is continued on bronchodilators and prednisone. The patient is seen today August 07, 2003 in follow-up on the regular medical floor. He is currently resting in bed. He remains very weak and debilitated. Not wanting to get out of bed. He is maintaining O2 saturations in the 90s on 5 L/min per nasal cannula. Chest x-ray continues to show coarse density in the right upper lobe reflecting possible infiltrate. Bilateral small effusions left greater than right with right basilar infiltrate/atelectasis. Continued pulmonary venous congestion. He is status post 3 units of packed red blood cells. Most recent hemoglobin 8.7. Procalcitonin down to 0.63 and 4.20. He remains on bronchodilators. Continued on diuretics. Completed antibiotics. Currently in a -800 mL balance. Howard catheter remains in place. Objective - Vital Signs Vital signs: Vital Signs Temp 98.0 F 08/07/23 13:07 Pulse 70 08/07/23 13:07 Resp 19 08/07/23 13:07 BP 125/75 08/07/23 13:07 Pulse Ox 95 08/07/23 13:07 FiO2 40 07/23/23 02:57 Intake & Output 08/06/23 08/07/23 08/07/23 18:59 06:59 18:59 Intake Total 120 Output Total 400 525 1 Balance -400 -405 -1 Weight 73.5 kg 78 kg Intake: Intake, IV Titration 120 Amount Sodium Chloride 0.9% 500 120 ml 500 ml @ 0 mls/hr IV . [employer] [facility] Rx#: [id number] Output: Urine 400 525 Stool 1 Other: Voiding Method Indwelling Catheter Indwelling Catheter Indwelling Catheter # Bowel Movements 2 1 1 - Exam GENERAL EXAM: Alert, weak, frail 88-year-old male, on 5 L nasal cannula, in no apparent distress. HEAD: Normocephalic. EYES: Normal reaction of pupils, equal size. NOSE: Clear with pink turbinates. THROAT: No erythema or exudates. NECK: No masses, no JVD. CHEST: No chest wall deformity. LUNGS: Equal air entry with crackles in the bilateral bases, left greater than right. CVS: S1 and S2 normal with no audible murmur, regular rhythm. ABDOMEN: No hepatosplenomegaly, normal bowel sounds, no guarding or rigidity. SPINE: No scoliosis or deformity SKIN: No rashes. Skin tears of the right upper extremity. CENTRAL NERVOUS SYSTEM: No focal deficits, tone is normal in all 4 extremities. EXTREMITIES: Multiple areas of ecchymosis. Left hip incision clean dry well- approximated there is no peripheral edema. No clubbing, no cyanosis. Peripheral pulses are intact. - Labs CBC & Chem 7: 08/05/23 08:08 08/06/23 06:34 Labs: Abnormal Lab Results - Last 24 Hours (Table) 08/07/23 Range/Units 07:21 Procalcitonin 0.63 H (0.02-0.09) ng/mL Assessment and Plan Assessment: Acute hypoxemic respiratory failure, possibly multifactorial, secondary to acute COPD exacerbation and possible left-sided community-acquired pneumonia and left- sided pleural effusion, possibly parapneumonic. Possibility of a hospital- acquired pathogen cannot be completely ruled out. Patient is currently on 5 L of oxygen nasal cannula and his repeat chest x-ray shows a continued pleural effusions and pulmonary edema and remains on diuretics Acute left lower lobe pneumonia, most likely bacterial infection and the patient procalcitonin level is also elevated. 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 Completed 10 days of vancomycin and Zosyn Acute leukocytosis, possibly secondary to above, recovered Left lower extremity DVT The ultrasound of the lower extremity on the left reveals chronic clot versus partially occlusive thrombus involving the long segment of the left lower extremity. Note that the patient was off his anticoagulants due to his frequent falls and anemia. IVC filter placed July 30, 2023 Frequent falls, with recent left hip femoral neck fracture, status/post left hip cemented unipolar hemiarthroplasty on 07/05/2023 History of fall with multiple left-sided rib fractures and pulmonary contusion History of paroxysmal atrial fibrillation, Eliquis has been stopped Acute on chronic kidney disease, creatinine is improved compared to yesterday the patient is recovering from his acute kidney injury Acute on top of chronic anemia with a drop in hemoglobin again at 6.1 on 07/31/2023, status post 3 units of packed RBCs this admission, current hemoglobin 8.7 History of thoracic level wound/cellulitis, isolated organism at that time was MRSA History of hyperlipidemia History of hypertension History of former tobacco dependence Chronic obstructive pulmonary disease History of alcoholism Hematuria Poor overall functional performance based on the above-mentioned multiple comorbidities Plan: The patient was seen and evaluated Chest x-ray, labs and medication reviewed Overall prognosis is guarded He is not making much progress DNR/DNI CODE STATUS May need to consider palliative/hospice care This patient was seen independently by the pulmonary nurse practitioner addressing pulmonary issues I have personally seen and examined the patient, performed the documentation and the assessment and plan as written. Number of minutes spent on the visit: 25.
[2023-08-07] MEDS: SIMETHICONE 40 MG/0.6 ML DROPS 2,000 MG/30 ML BOTTLE PO SCH (15:46)
--- NOTE | 2023-08-08 04:30 | P.PN ---
Subjective Progress Note Date: 08/08/23 Patient is a 88-year-old male with a past medical history of hypertension, hyperlipidemia, paroxysmal atrial fibrillation coronary artery disease nonobstructive, mild cardiomyopathy ejection fraction 45-50 %, history of right tobacco smoker and left hip hemiarthroplasty on 07/05/2023 due to mechanical fa ll. Patient presented from nursing facility due to worsening shortness of breath/dyspnea. Patient was diagnosed with pneumonia and was started on doxycycline. He was placed on oxygen at 4 L via nasal cannula and EMS was called due to hypoxia with pulse ox down to 80% and patient was tachycardic and tachypneic. Patient was placed on BiPAP by EMS and was transferred to ER. Otherwise patient denies any complaints of chest pain. Cough with occasional sputum production. Tmax 101.0 on admission. Patient was recently admitted to due to acute blood loss anemia from 07/11/2023 to 07/12/2023. requiring 1 unit PRBC transfusion. Eliquis was held and was discharged back to [facility] for [facility]. Chest x-ray showed chronic parenchymal changes with new small left pleural effusion and left lower lobe acute infiltrates/atelectasis. EKG showed sinus tachycardia with possible left atrial enlargement. Lower extremity venous duplex showed suboptimal study. Long segment left lower extremity DVT is present. Findings reflect chronic clot or partially occlusive thrombus. Correlate clinically. Mild to moderate diffuse subcutaneous edema is seen on images obtained. Laboratory data showed WBC 13.7 hemoglobin 8.9 and platelets 708, D-dimer 4.11 ABG showed pH 7.35 pCO2 39, pO2 183 Sodium 130 potassium 4.9 chloride 97 bicarb is 19 BUN 59 and creatinine 2.09 and blood sugar 106 and lactic acid 3.1 total bilirubin 3.5 and alk phos 268, proBNP 5700, troponin 0.027 and albumin 2.8 Influenza A, B, RSV and COVID-19 PCR not detected. 07/23/2023 Patient is seen and evaluated in follow-up. Patient was continued on BiPAP and is currently maintaining oxygen saturations above 90% on 3 L. Patient continues on IV heparin drip with left lower extremity DVT. VQ scan was ordered as jean t was unable to have CT of the chest for PE evaluation as kidney functions are elevated. Will hold on VQ scan for now as patient unable to tolerate lying flat. Continue IV heparin and will likely need to transition back to Eliquis. 07/24/2023 Patient is seen and evaluated in follow-up today with pulmonary following. Patient continues on 3 L via nasal cannula and has been off of the BiPAP. Fol low-up chest x-ray today shows increasing left lower lobe pleural effusion with associated atelectasis and/or infiltrate. Strongly encourage incentive spirometer although patient needs much encouragement as he is extremely weak and confused at times. Patient continues on IV heparin and will for now as there will be a follow-up chest x-ray in the a.m. and may require a thoracentesis with pulmonary following closely. Will discuss with pulmonary in regards to transitioning to Eliquis or if patient is appropriate for any further anticoagulation. Patient is afebrile with no reported chest pain or worsening shortness of breath. Patient is continued on IV steroids along with antibiotics and DuoNeb breathing treatments. Encouraged oral intake and recommend aspiration precautions with head of the bed elevated 45 degrees at all times. 07/25/2023 Patient is seen this morning currently asleep although arousable. Patient maintained on 3 L via nasal cannula with pulmonary following. Follow-up chest x-ray shows stable effusion and pulmonary reporting no plans for thoracentesis at this time. Patient was continued on IV heparin although will transition to oral Eliquis and monitor for any bleeding. There are no active signs of bleeding at this time although hemoglobin was noted to be 6.6 today. Will transfuse 1 unit of PRBC follow-up on repeat labs. Patient continues on antibiotics sided pneumonia. Patient is afebrile and denies any chest pain or palpitations. Patient has a congested cough and difficulty expectorating. Encouraged incentive spirometer use and sitting up more often. Continue with DuoNeb treatments at this time. 07/26/2023 Patient is seen and evaluated in follow-up status post 1 unit of PRBC. Hemoglobin is 7.4 today with no active bleeding noted. Patient continues on DuoNeb treatments and will continue on antibiotics with pulmonary following closely. 07/27/2023 Patient is currently lying in the bed. Awake alert. Still having shortness of breath and oxygen requirement at 3 L via nasal cannula. Patient is on antibiotics in the form of vancomycin and Zosyn. Nasal swab cultures positive for MRSA. Patient is also on IV Solu-Medrol 60 mg every 6 hourly and DuoNebs. Patient was started back on anticoagulation with heparin drip. Vascular surgery was consulted. DVT. Chest x-ray showed unchanged left pleural effusion with associated atelectasis or infiltrate. Laboratory data showed WBC 8.0 hemoglobin 8.1 and platelets 288 INR 1.3. FOBT negative. 07/28/2023 Patient is lying in the bed. Awake alert but lethargic and weak. And currently requiring 4 L oxygen via nasal cannula. Currently on heparin drip due to lower extremity DVT and also on IV antibiotics. Hemoglobin is fairly stable at 7.6. No hematuria noted. Patient is also being continued on IV Solu-Medrol and DuoNebs. Pulmonary is on board. Vascular surgery was consulted. Patient does have significant right upper extremity swelling with possible extravasation of the IV line. Duplex scan was ordered to rule DVT. Laboratory showed WBC 6.8 hemoglobin 7.6 and platelets 265 Sodium 139 potassium 3.5 chloride 110 bicarb is 23 BUN 53 and creatinine 1.24 and blood sugar 166. Calcium 8.0. 07/29/2023 Patient is seen in follow-up today with multiple medical consultations hilario bee. Patient is continued on 5 L via nasal cannula although 99% and discussed with nursing staff about weaning FiO2 as tolerated. Patient continues on IV heparin for lower extremity DVT and hemoglobin is stable above 7. No further hematuria noted. Vascular surgery consulted for possible IVC filter placement as patient is a poor candidate for anticoagulation. Patient continues with some right upper extremity swelling and DVT was ruled out, difficult to exclude a thrombus in the cephalic vein where an IV was placed. Continue with supportive care and elevating that extremity. Patient with significant weakness recommend PT/OT therapy daily. Patient will be returning to [facility] once cleared by consultations. Will await vascular surgery evaluation. Patient to continue on breathing inhalational treatments along with antibiotics and IV steroids. Pulmonary planner chief following. 07/30/2023 Patient is seen and evaluated this morning currently scheduled to undergo IVC filter placement as patient has been having drops in hemoglobin with no specific bleeding noted. Hematuria has resolved and was brief as patient continues with indwelling Howard catheter and urine is clear. Patient was initiated back on IV heparin for acute DVT in the left lower extremity although having complications with reduced hemoglobin, vascular was consulted for IVC filter. Patient is not a good candidate for anticoagulation. Hemoglobin was 6.1 today and will transfuse 2 units with Lasix in between and consult GI and appreciate input and recommendations. Patient denies any bleeding or difficulties with tolerating diet. Per nursing staff patient has had bowel movements that are brown with no blood noted, no dark melanotic stools noted. Patient is continued on antibiotics with pulmonary following as well congested weak cough likely chronic. Will obtain a chest x-ray. 07/31/2023 Patient is seen in follow-up with multiple medical consultations following his IVC filter placement. Patient had significant electrolyte and hemoglobin abnormalities this morning and awaiting repeat labs as patient received 2 units yesterday and hemoglobin was noted to be 6.1 again today. Repeat labs ordered and pending. Patient with critically low potassium and magnesium also awaiting repeat and will replace per protocol. Patient denies any bleeding or pain. Patient is maintained on antibiotics with pulmonary following with concerns of pneumonia on admission. Patient tolerating diet and denies any nausea or vomiting. GI has been consulted with concerns of possible GI bleed. Cardiology will be consulted as well for CHF. Will initiate low-dose Lasix and follow-up on repeat labs in the a.m. 08/01/2023 Patient is seen in follow-up today and hemoglobin remained stable above 8 with no active bleeding noted. GI consulted with concerns of possible GI bleed as patient had continued drop in hemoglobin. Patient is off anticoagulation and status post IVC filter placement. Not a good candidate for anticoagulation. Iron studies ordered and within normal limits. Will follow-up with repeat chest x-ray as patient having some vascular congestion. Continue IV Lasix daily and follow-up with repeat labs. Replace electrolytes per protocol. Recommend aspiration precautions and having the head of the bed elevated 30 to 45 degrees at all times and supervision with meals. 08/02/2023 Patient is seen and evaluated in follow-up today with multiple medical consultations following. GI was consulted with concerns of possible GI bleed although no active bleeding noted and hemoglobin is stable above 8. Patient is status post IVC filter placement and not a candidate for anticoagulation. Cardiology following and patient has been maintained on IV Lasix which is increased to twice daily per pulmonary. Patient to follow-up with chest x-ray and also continue with breathing treatments. Antibiotics have been discontinued and patient has received adequate antibiotics during hospitalization. Patient being transition to oral prednisone. No plans of endoscopic intervention at this time and will follow-up in the outpatient setting as needed. Patient with significant weakness and per nursing staff bilateral heel wounds unstageable, present on admission and there is continued noted left foot drop. Per nursing staff patient is two-person max assist and was at [facility] post hip fracture. Plan is for returning to [facility] on discharge. Patient is afebrile and denies chest pain or shortness of breath. Patient has been tolerating diet and would recommend continuing with aspiration precautions. 08/03/2023 Patient is evaluated today currently sitting up in the chair reports some improvements in shortness of breath. Patient is continued on breathing inhalational treatments and has been transition to oral prednisone. Patient has completed a course of antibiotics and being closely monitored off antibiotic therapy. Continue current regimen including IV Lasix for an additional 24 hours and will follow-up on repeat labs and possibly transition to oral Lasix. Cardiology following as well. Currently off anticoagulation and hemoglobin remained stable above 8.1. 08/04/2023 Patient is seen in follow-up today being watched off antibiotic therapy currently maintained on 4 L of oxygen maintaining oxygen saturations above 95%. Patient continued on treatments and has been transition to Lasix daily and will follow-up with repeat chest x-ray in a.m. Patient with significant weakness needs to be reevaluated by physical therapy and discuss further with case management/social work regarding discharge planning as patient will be returning to [facility]. Patient is afebrile and denies chest pain or shortness of breath. Hemoglobin is stable status post IVC filter placement. 08/04 Patient is seen in follow-up with no acute overnight issues noted. Patient being followed by multiple medical consultations showing some improvements although slow to improve. Patient continues with significant weakness and plans on returning to [facility]. Awaiting follow-up labs and replace electrolytes per protocol. Patient being transition from IV Lasix. Encouraged oral intake. 08/06/2023 Patient is seen in follow-up today with no acute overnight issues. Patient is having lower blood pressure readings and reports to feeling fatigued today and not eating much. Patient has not been eating much throughout hospitalization. Recommend aspiration precautions and supervision with meals. Would also recommend Ensure supplements between meals. Chest x-ray showed some pulmonary venous congestion with mild interstitial edema bilateral pleural effusions that were slightly smaller in size and overall appearance seems slightly improved. Has been transitioned to oral Lasix and awaiting repeat labs today. Per nursing staff blood pressures have been low including manuals and will give 1 dose of midodrine and add as needed midodrine as well. Patient has been encouraged to increase oral intake. Patient remains no code and family would like patient to return to [facility] on discharge. Plan is for return to [facility]. Possible discharge planning in the next 24 hours. 08/07/2023 Patient is seen and evaluated in follow-up today reports not feeling well with no specific complaints in general. Patient reports he does not want to get up in the chair today and would like to remain sitting up in bed. Patient is awaiting his to visit him. Patient is afebrile maintained on 5 L via nasal cannula with no reports of worsening shortness of breath. Patient has not been eating very well and will add Megace and encourage small frequent meals. Discussed with at the bedside regarding overall treatment plan and discussion of palliative versus hospice was explained and will consult for informational hospice and is agreeable. Patient has had frequent hospitalizations and clinical deterioration with no significant improvement noted. Patient is currently no code. Will continue with breathing treatments and oral Lasix daily. Blood pressure is improving on midodrine and will monitor for improvements. Insurance authorization was obtained for [facility]. Prognosis remains extremely poor and guarded and will consider possible discharge planning in the next 24 to 48 hours. Patient will be returning to [facility]. Family to discuss further regarding hospice. Review of systems: Constitutional: No reports of fatigue, fever, or chills Cardiovascular: No reports of chest pain or palpitations Respiratory: No reports of worsening shortness of breath, reports weak cough t hat is chronic GI: No reports of nausea, vomiting, or diarrhea, reports not eating very much and not much of an appetite : No reports of dysuria or retention, no further hematuria Neurovascular: reports of extreme generalized weakness All medications have been reviewed PHYSICAL EXAMINATION: Patient is sitting up in the bed., awake alert and oriented x 2, Baseline. Currently on 5 L via nasal cannula, well-developed, thin built, elderly appearing, ill-appearing HEENT: Normocephalic. Neck is supple. Pupils reactive. Nostrils clear. Oral cavity is moist. Neck reveals no JVD, carotid bruits, or thyromegaly. CHEST EXAMINATION: Trachea is central. Symmetrical expansion. Left basilar coa rse sounds. Mild expiratory wheeze.. Faint crackles noted at the bases, bronchial congestion noted with minimal improvement, weak cough noted. CARDIAC: S1, S2 are muffled ABDOMEN: Soft. Thin. Bowel sounds normal. No organomegaly. No abdominal bruits. Extremities: Minimal edema. No clubbing or cyanosis, bilateral lower extremity swelling improving , foot drop noted on the left as well. Left hip surgical site has scabbing noted with no redness or drainage noted, healing well and approximated Neurologically awake, alert, oriented x 2-3. Diffusely weak Skin: No rash or skin lesions. Pale, bilateral heel unstageable ulcers noted Psychiatric: Cooperative. Could not be assessed completely Musculoskeletal: No joint swelling or deformity. Assessment: Acute on chronic hypoxemic respiratory failure due to left lower lobe pneumonia and left sided pleural effusion and COPD. Patient was requiring BiPAP on admission. Transitioned to nasal cannula, currently 5 L. Patient was chronical ly wearing 2 to 3 L outpatient. Acute on chronic congestive heart failure with systolic dysfunction Acute on chronic anemia, acute blood loss secondary to anticoagulation and hematuria Hematuria, possibly secondary to resumption of anticoagulation versus possible trauma as patient does occasionally pull at IVs and tubings. Resolved Sepsis secondary to pneumonia, bacterial, present on admission Acute left lower extremity DVT. Elevated D-dimer level. CT PE could not be done due to elevated creatinine level. Right upper extremity arm swelling, DVT ruled out, thrombus of the cephalic vein from an IV site Acute kidney injury likely prerenal with possible ATN. CKD stage III. Hypovolemic hyponatremia, secondary to poor oral intake Lactic acidosis 3.1 on admission, secondary to left lower lobe pneumonia, improved History of mechanical fall status post left hip cemented unipolar hemiarthropl asty on 07/05/2023 Recent admission with anemia requiring blood transfusion 1 unit PRBC. Paroxysmal atrial fibrillation, currently rate controlled status post IVC filter placement Nonischemic cardiomyopathy with ejection fraction 45 to 50%. EF improved to 55 to 60% as per recent echocardiogram on 07/05/2023 Coronary artery disease nonobstructive Bilateral heel unstageable ulcers, present on admission Hypertension although currently hypotensive, likely hypovolemic from poor oral intake and continued IV diuresis Hyperlipidemia History of tobacco use History of EtOH abuse GI prophylaxis with PPI DVT prophylaxis, anticoagulant being held due to anemia, status post IVC filter placement No code Plan: Patient is being followed by multiple consultations maintained on 5 L via nasal cannula . Pulmonary following and has discontinued antibiotics and has been transitioned to oral steroid taper. Patient will continue with breathing treatments. Chest x-ray continues to show pleural effusions although smaller and stable Patient is status post IVC filter placement and hemoglobin is stable above 8 with no active bleeding noted currently off anticoagulation GI has evaluated the patient and hemoglobin is stable with no active bleeding noted recommending outpatient follow-up with endoscopic if needed Patient has been transition to oral Lasix daily patient is not a good candidate for anticoagulation given significant anemia and drop in hemoglobin along with recurrent frequent falls Recommend PT/OT therapy evaluation, case management following as patient will be returning to ECF on discharge Continue with wound care for unstageable ulcers noted on bilateral heels, continue with frequent offloading Home medications reviewed and resumed as appropriate Patient's blood pressure on the lower side and will continue midodrine as needed. Recommend sitting up in the chair more often and up and out of the bed at least 3 times daily. Patient reports he is adamant he is not sitting up in the chair today Patient is no code. Had a lengthy discussion with at the bedside today and have placed a consult to hospice for informational and would like to discuss further with daughter before making any final decisions. Hospice did evaluate and discuss overall philosophy and may consider this in the outpatient setting. Patient and are speaking with daughter on Saturday this weekend. Possible discharge in the next 24 to 48 hours due to multiple complex medical issues, prognosis is guarded, patient is extremely high risk for frequent readmissions and has had multiple hospitali zations most recently. This was discussed with and she is in agreement with attempting to avoid frequent rehospitalization's. Again family to discuss further regarding possible hospice. The impression and plan of care has been dictated by Nurse Vi Prac titioner as directed. Dr. Lj MD I have performed a history and examination and MDM of this patient, discussed the same with the dictator, and agree with the dictator's assessment and plan as written ,documented as a scribe. Based on total visit time, I have performed more than 50% of the visit. Objective - Vital Signs Vital signs: Vital Signs Temp 98 F 08/07/23 06:58 Pulse 70 08/07/23 06:58 Resp 18 08/07/23 06:58 BP 116/71 08/07/23 06:58 Pulse Ox 95 08/07/23 08:18 FiO2 40 07/23/23 02:57 Intake & Output 08/06/23 08/07/23 08/07/23 18:59 06:59 18:59 Intake Total 120 Output Total 400 525 Balance -400 -405 Weight 73.5 kg 78 kg Intake: Intake, IV Titration 120 Amount Sodium Chloride 0.9% 500 120 ml 500 ml @ 0 mls/hr IV . [employer] [facility] Rx#: [id number] Output: Urine 400 525 Other: Voiding Method Indwelling Catheter Indwelling Catheter # Bowel Movements 2 1 1 - Labs CBC & Chem 7: 08/05/23 08:08 08/06/23 06:34 Labs: Abnormal Lab Results - Last 24 Hours (Table) 08/06/23 Range/Units 06:34 Sodium 134 L (135-145) mmol/L Chloride 95 L (96-109) mmol/L BUN 34.7 H (9.0-27.0) mg/dL BUN/Creatinine Ratio 31.55 H (12.00-20.00) Ratio Glucose 125 H (70-110) mg/dL Calcium 8.2 L (8.7-10.3) mg/dL
--- NOTE | 2023-08-08 08:21 | XR ---
EXAMINATION TYPE: XR chest 1V portable DATE OF EXAM: 08/08/2023 HISTORY: Shortness of breath. COMPARISON: 08/07/2023 TECHNIQUE: Single view of the chest is submitted. FINDINGS: Demonstrated are scattered senescent parenchymal change. Continued pulmonary venous congestion with small left-sided effusion and perihilar infiltrates may re flect congestive failure. Correlate clinically and progress studies are advised. Hilar and mediastinal structures are within normal limits. Degenerative changes are seen of the dorsal spine. IMPRESSION: 1. Continued pulmonary venous congestion with small left-sided effusion and perihilar infiltrates ma y reflect congestive failure. Correlate clinically and progress studies are advised.
[2023-08-08] MEDS ORDERED: SIMETHICONE 40 MG/0.6 ML DROPS 2,000 MG/30 ML BOTTLE PO PRN (09:00)
[2023-08-08] MEDS: MEGESTROL 40 MG TAB PO SCH (09:04)
--- NOTE | 2023-08-08 13:54 | P.PN ---
Subjective Progress Note Date: 08/08/23 Patient is an 88-year-old male with past medical history significant for hypertension, hyperlipidemia, paroxysmal atrial fibrillation previously anticoagulated on Eliquis, frequent falls. Patient recently fell from his wheelchair and had sustained a left hip fracture. He underwent a left hip cemented unipolar hemiarthroplasty on 07/05/2023. He was then discharged back to his extended care facility. Patient was sent back in from his [facility] yesterday for evaluation of acute dyspnea. He was reportedly diagnosed with pneumonia earlier in the day, and started on doxycycline. When EMS arrived to the [facility], he was hypoxic with an SpO2 of less than 80%. He was also tachypneic and tachycardic and in respiratory distress. He was transferred to our facility on BiPAP. He is currently sitting up in bed, in some respiratory distress. On BiPAP with settings 12/6 and FiO2 of 100%. Respiratory rate is in the mid 30s and tidal volumes are greater than 800. He is unable to provide any information at this time. There is accessory muscle use. ABG done on above-mentioned settings showed a PaO2 of 183, pCO2 of 39, pH of 7.35. Chest x-ray shows a left lower lobe infiltrate and or atelectasis and small left-sided pleural effusion, possibly parapneumonic. CBC on arrival: WBC count of 30.7, hemoglobin 8.9, hematocrit 27.8, platelets 708. CMP on arrival: Sodium 130, potassium 4.9, chloride 97, serum bicarb 19, BUN 59, creatinine 2.09, glucose 106. Normal saline infusing at 130 MLS per hour. LFTs mildly elevated. Troponin 0.027. NT proBNP 5700. There is a component of acute on chronic kidney injury. Negative for influenza, RSV, COVID. Patient's D-dimer was elevated. For this reason a venous Doppler of the lower extremities was ordered, and the patient was found to have a left lower extremity DVT. Patient was previously anticoagulated on Eliquis, however, this has been stopped after his most recent fall and hip fracture. Left hip incision is approximated and clean and dry. No drainage. Hemoglobin is stable at 8.9 g/dL. Patient denies any bright red blood, melanotic stools, or hematemesis. Patient's respiratory status is currently labile, will continue to closely monitor. Patient may need transfer to the intensive care unit. In the emergency department and I had a lengthy discussion with the . The patient is currently on a BiPAP and is tolerating the BiPAP reasonably well with generation of adequate tidal volume above 500. No significant tachypnea. The patient is on a pressure setting of 12/6 and a meters of water and FiO2 has been weaned down.The white cell count from today is 29 with a hemoglobin of 7.6 and a platelet count of 527. Blood gases show a pH of 7.35 with a pCO2 of 39 and pO2 of 183 and this was on FiO2 of 100%. Viral screen has been negative and the procalcitonin level is at 4.2. BUN is at 69 with a creatinine of 2.09. Cultures were sent and the results are still pending for now. The chest x-ray showed a new area of consolidation of the left lower lobe in addition to a small left-sided pleural effusion. Ultrasound of the chest was also ordered and the results were consistent with a small left-sided pleural effusion with a 4.2 cm pocket. 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 Noted the patient was on anticoagulation with Eliquis in the past and this anticoagulation was discontinued because of his frequent falls. Noted the procalcitonin level is elevated at 4.2 On today's evaluation of 07/23/2023, seen the patient for a follow-up. The patient got moved out of the emergency department and the patient is currently on the medical floor. He was taken off the BiPAP this morning and the patient is currently on 2 L of O2 with a pulse ox of 98%. Alert awake and communicating. The white cell count is dropped down to 17.4 with a hemoglobin of 8.2 and a platelet count of 579. Hemodynamically stable. There is also interval improvement in the creatinine which is down to 1.43 with a BUN of 61. Sodium levels at 134. The patient remains on a combination of Zosyn and vancomycin. Remains on bronchodilators. Remains on IV Solu-Medrol 60 mg every 6 hours. The patient is also on IV heparin. PTT is therapeutic at this point in time. No evidence of any bleeding. Awake and alert and communicating. On today's evaluation of 07/24/2023, the patient is being seen for a follow-up. Clinically stable and the patient is currently on liters of oxygen by nasal cannula with a pulse ox of 94%. Repeat chest x-ray was done today and it shows some increase in the left lower lobe pleural effusion. There is also some infiltration/atelectasis. However clinically, the patient is stable. The patient is currently off the BiPAP. He has developed a small left-sided pleural effusion, likely parapneumonic in nature. Ultrasound of the chest was done yesterday showed a 4.2 cm pocket in the left lung. The WBC count is at 10.1 whi ch is improved with a hemoglobin of 7.7 slightly lower compared to yesterday with a platelet count of 537. Rest of the electrolytes are still pending. The patient remains on IV heparin. Remains on Zosyn and vancomycin coverage. No significant tachycardia. The patient is on DuoNeb updrafts. The patient on IV Solu-Medrol. The patient on Zosyn and vancomycin. The patient is on metoprolol 12.5 mg p.o. twice a day. On today's evaluation on 07/25/2023, the patient continues to improve. The white cell count is down to 7.8. The patient remains on 3 L of oxygen by nasal cannula. No significant respite distress. Repeat chest x-ray was done today and shows a stable left-sided pleural effusion that has not changed in size and the patient also has some stable infiltration of the left lung base consistent with pneumonia but small parapneumonic effusion. Hemoglobin is currently down to 6.6. The patient will be given a unit of packed RBC accordingly. Rest of the electrolytes show a creatinine of 1.33 with a BUN of 56 and a sodium levels at 138 with a potassium level of 4.1. The patient remains on IV heparin. He does have a DVT of the left lower extremity. No evidence of any GI bleeding at this point in time while being on IV heparin. On today's evaluation on 07/26/2023, the patient is being seen for a follow-up. The patient was given a unit of packed RBC yesterday and the hemoglobin is currently at 7.4. He is on oxygen 3 L with a pulse ox of 92%. He is lethargic and weak. Nevertheless denies having any significant shortness of breath. No chest pain. Remains on Zosyn and vancomycin. Nasal screen for MRSA was positive. Possibility of MRSA pneumonia cannot be completely excluded. The patient also developed a small parapneumonic effusion not amenable for thoracen tesis. He is a DNR/DNI CODE STATUS. Remains on bronchodilators. Remains on steroids. In addition, the patient is experiencing some hematuria at baseline and anticoagulation was stopped. Based on his high risk for anticoagulation and previous history of falls and concern for bleed, anticoagulation was placed on hold and vascular surgery was consulted for IVC filter placement. On today's evaluation, the patient is essentially unchanged remains on 3 L of oxygen by nasal cannula with a pulse ox of 97%. Chest x-ray was repeated this morning and the patient has an unchanged left-sided pleural effusion and left lower lobe consolidation. Remains on Zosyn and vancomycin. Labs from today shows a white cell count of 8 with a hemoglobin of 8 and a platelet count of 329. Electrolytes are within normal limits from yesterday. Creatinine is down to 1.2. No active hematuria and patient will be placed back on IV heparin pending vascular surgery consult 07/28/2023, patient is being seen for a follow-up. The patient is currently on oxygen at 4 L. Calm and comfortable. Noted frustrated. He is weak and quite debilitated at this point in time. He remains on Zosyn and vancomycin. He remains on IV heparin. No evidence of any hematuria. Howard catheter is in place. Hemoglobin is at 7.6. BUN is 53 with creatinine 1.24 levels at 139. Limited congested cough. No significant sputum production. He did encounter some swelling l upper extremity and a Doppler showed no evidence of any DVT in the right upper extremity. Nonocclusive thrombus was seen within the right cephalic vein. The patient is seen today July 29, 2023 in follow-up on the regular medical floor. He is currently sitting up in bed. Awake and alert in no acute distress. He is maintaining good O2 saturations in the upper 90s on 5 L/min per nasal cannula. He is afebrile. Hemodynamically stable. He remains on a heparin drip. Continued on bronchodilators and steroids. Antibiotics in the form of vancomycin and Zosyn. The patient is seen today July 30, 2023 in follow-up on the regular medical floor. He is awake and alert in no acute distress. He is maintaining O2 saturations in the 90s on 5 L/min per nasal cannula. White count 4.5. Hemoglobin 6.1. Platelets 173. Creatinine 1.24. He remains on a heparin drip. The plan is for IVC filter placement today. Packed red blood cell transfusion has been ordered. Remains on vancomycin and Zosyn. Continued on Flovent, albuterol, Spiriva. Remains on IV Solu-Medrol. The patient is seen today July 31, 2023 in follow-up on the regular medical floor. He is sitting up in bed. Awake and alert in no acute distress. Continuing to maintain O2 saturations in the 90s on 5 L/min per nasal cannula. He has been afebrile. Hemodynamically stable. He did go for IVC filter placement yesterday. Groin site is stable. Blood and sputum cultures revealed no growth. White count 6.6. Hemoglobin 6.1. Platelets 111. He is status post 3 units of packed red blood cells this admission. He remains on Serevent, Flovent, Spiriva. Remains on IV Solu-Medrol. Remains on antibiotics in the form of vancomycin and Zosyn. The patient is seen today August 01, 2023 in follow-up on the regular medical floor. He is awake and alert in no acute distress. Sitting up in bed having breakfast. Denies any worsening shortness of breath, cough or congestion. He is maintaining good O2 saturations in the upper 90s on 6 L/min per nasal cannula. He is afebrile. Hemodynamically stable. He is status post 3 units of packed red blood cells this admission. Blood culture revealed no growth. Sputum culture revealed no growth. White count 8.7. Hemoglobin 8.4. Platelets 155. Sodium 135. Potassium 3.6. Bicarb 21. BUN 48. Creatinine 1.17. Glucose 153. He remains on bronchodilators, steroids. Antibiotics in the form of vancomycin and Zosyn. The patient is seen today August 02, 2023 in follow-up on the regular medical floor. He is currently sitting up in bed. Awake and alert in no acute distress. He denies any worsening shortness of breath, cough or congestion. He is still requiring 5 L high flow nasal cannula to maintain O2 saturations in the 90s. His chest x-ray is showing evidence of increasing pulmonary edema. He is currently on Lasix 40 mg p.o. daily. He remains afebrile. Hemodynamically stable. He is status post 3 units of packed red blood cells this admission. Current hemoglobin 8.1. Platelets 179. White count 12.0. Sodium 134. Potassium 3.4. Bicarb 24. BUN 42. Creatinine 1.02. Glucose 152. He completed his course of antibiotics. The patient is seen today August 03, 2023 in follow-up on the regular medical floor. He is awake and alert in no acute distress. Denies any worsening shortness of breath, cough or congestion. He is on 4 L nasal cannula with O2 saturations in the 90s. His chest x-ray is showing bibasilar infiltrates. He does have some continued crackles in the bases more so on the left. He has less swelling in his feet and hands. He has diuresed over 2 L yesterday and again today. He remains on Lasix 40 mg IV every 12 hours. White count 11.1. Hemoglobin 8.1. Platelets 198. Sodium 132. Potassium 4.2. Bicarb 22. Creatinine 0.93. BUN 38. Glucose 171. He is continued on bronchodilators. Continued on prednisone taper. The patient is seen today August 04, 2023 in follow-up on the regular medical floor. He is sitting up in bed having lunch. Denies any worsening shortness of breath, cough or congestion. No chest pain or palpitations. He is continued on Lasix 40 mg every 12 hours. Remains on bronchodilators. Maintain O2 saturation in the 90s on 4 L/min per nasal cannula. He has received 3 units of packed red blood cells this admission. Current hemoglobin 8.7. Platelets 217. White count 15.5. Sodium 135. Potassium 4.6. Bicarb 25. BUN 34. Creatinine 1.1. Glucose 139. He is currently in a -3.7 L balance. The patient is seen today August 05, 2023 in follow-up on the regular medical floor. He is currently resting comfortably in bed. Awake and alert in no acute distress. Maintaining good O2 saturations in the 90s on 4 L/min per nasal cannula. Chest x-ray is showing improved aeration. There is pulmonary venous congestion with mild interstitial edema. Improved bilateral pleural effusions. White count 14.1. Hemoglobin 8.7. Platelets 271. Sodium 128. Potassium 4.0. Bicarb 31. BUN 35. Creatinine 1.05. Glucose 136. He is continued on [facility] hodilators, prednisone. Remains on IV diuretics. Currently on a negative 3.2 L balance. He is status post 3 units of packed red blood cells this admission. The patient is seen today August 06, 2023 in follow-up on the regular medical floor. He is awake and alert in no acute distress. Feeling better today compared to yesterday. He has been slow to progress. He remains quite weak and debilitated. Continues to maintain good O2 saturations in the 90s on 4 L/min per nasal cannula. He is afebrile. Hemodynamically stable. He is status post 3 units of packed red blood cells this admission. Current hemoglobin 8.7. Blood and sputum culture had revealed no growth. Nasal swab was positive for MRSA. He has been transition to oral diuretics. Currently in -2.1 L balance. He is continued on bronchodilators and prednisone. The patient is seen today August 07, 2003 in follow-up on the regular medical floor. He is currently resting in bed. He remains very weak and debilitated. Not wanting to get out of bed. He is maintaining O2 saturations in the 90s on 5 L/min per nasal cannula. Chest x-ray continues to show coarse density in the right upper lobe reflecting possible infiltrate. Bilateral small effusions left greater than right with right basilar infiltrate/atelectasis. Continued pulmonary venous congestion. He is status post 3 units of packed red blood cells. Most recent hemoglobin 8.7. Procalcitonin down to 0.63 and 4.20. He remains on bronchodilators. Continued on diuretics. Completed antibiotics. Currently in a -800 mL balance. Howard catheter remains in place. The patient is seen today August 08, 2023 in follow-up on the regular medical floor. He is currently awake and alert in no acute distress. He remains quite weak and debilitated. Appetite is poor. He continues to maintain O2 saturations in the low 90s on 6 L/min per nasal cannula. He is currently afebrile. Hemodynamically stable. Chest x-ray can shows continued pulmonary venous congestion with small left-sided pleural effusions and perihilar infiltrates. No new labs today. He is currently in a -2.8 L balance. He remains on diuretics, bronchodilators. Objective - Vital Signs Vital signs: Vital Signs Temp 97.6 F 08/08/23 07:26 Pulse 99 08/08/23 07:26 Resp 20 08/08/23 07:26 BP 138/65 08/08/23 07:26 Pulse Ox 92 L 08/08/23 08:47 FiO2 40 07/23/23 02:57 Intake & Output 08/07/23 08/08/23 08/08/23 18:59 06:59 18:59 Output Total 801 2000 Balance -801 -2000 Weight 78.2 kg Output: Urine 800 2000 Stool 1 Other: Voiding Method Indwelling Catheter Indwelling Catheter Indwelling Catheter # Bowel Movements 1 1 - Exam GENERAL EXAM: Alert, weak, pleasant 88-year-old male, sitting up in bed, on 6 L nasal cannula, in no apparent distress. HEAD: Normocephalic. EYES: Normal reaction of pupils, equal size. NOSE: Clear with pink turbinates. THROAT: No erythema or exudates. NECK: No masses, no JVD. CHEST: No chest wall deformity. LUNGS: Equal air entry with crackles in the bilateral bases, left greater than right. CVS: S1 and S2 normal with no audible murmur, regular rhythm. ABDOMEN: No hepatosplenomegaly, normal bowel sounds, no guarding or rigidity. SPINE: No scoliosis or deformity SKIN: No rashes. Skin tears of the right upper extremity. CENTRAL NERVOUS SYSTEM: No focal deficits, tone is normal in all 4 extremities. EXTREMITIES: Multiple areas of ecchymosis. Left hip incision clean dry well-approximated there is no peripheral edema. No clubbing, no cyanosis. Peripheral pulses are intact. - Labs CBC & Chem 7: 08/05/23 08:08 08/06/23 06:34 Assessment and Plan Assessment: Acute hypoxemic respiratory failure, possibly multifactorial, secondary to acute COPD exacerbation and possible left-sided community-acquired pneumonia and left- sided pleural effusion, possibly parapneumonic. Possibility of a hospital-acqu ired pathogen cannot be completely ruled out. Patient is currently on 6 L of oxygen nasal cannula and his repeat chest x-ray shows a continued pleural effusions and pulmonary edema and remains on diuretics Acute left lower lobe pneumonia, most likely bacterial infection and the patient procalcitonin level is also elevated. 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 Completed 10 days of vancomycin and Zosyn Acute leukocytosis, possibly secondary to above, recovered Left lower extremity DVT The ultrasound of the lower extremity on the left reveals chronic clot versus partially occlusive thrombus involving the long segment of the left lower extremity. Note that the patient was off his anticoagulants due to his frequent falls and anemia. IVC filter placed July 30, 2023 Frequent falls, with recent left hip femoral neck fracture, status/post left hip cemented unipolar hemiarthroplasty on 07/05/2023 History of fall with multiple left-sided rib fractures and pulmonary contusion History of paroxysmal atrial fibrillation, Eliquis has been stopped Acute on chronic kidney disease, creatinine is improved compared to yesterday the patient is recovering from his acute kidney injury Acute on top of chronic anemia with a drop in hemoglobin again at 6.1 on 07/31/2023, status post 3 units of packed RBCs this admission, current hemoglobin 8.7 History of thoracic level wound/cellulitis, isolated organism at that time was MRSA History of hyperlipidemia History of hypertension History of former tobacco dependence Chronic obstructive pulmonary disease History of alcoholism Hematuria 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 Poor overall functional performance based on the above-mentioned multiple comorbidities Plan: The patient was seen and evaluated Chest x-ray, labs and medication reviewed Continues to deteriorate despite continued treatment Overall prognosis is guarded DNR/DNI CODE STATUS The plan is to return to [facility] Patient and his family are considering palliative/hospice care This patient was seen independently by the pulmonary nurse practitioner addressing pulmonary issues I have personally seen and examined the patient, performed the documentation and the assessment and plan as written. Number of minutes spent on the visit: 23.
--- NOTE | 2023-08-09 05:49 | P.PN ---
Subjective Progress Note Date: 08/08/23 Patient is a 88-year-old male with a past medical history of hypertension, hyperlipidemia, paroxysmal atrial fibrillation coronary artery disease nonobstructive, mild cardiomyopathy ejection fraction 45-50 %, history of right tobacco smoker and left hip hemiarthroplasty on 07/05/2023 due to mechanical fa ll. Patient presented from nursing facility due to worsening shortness of breath/dyspnea. Patient was diagnosed with pneumonia and was started on doxycycline. He was placed on oxygen at 4 L via nasal cannula and EMS was called due to hypoxia with pulse ox down to 80% and patient was tachycardic and tachypneic. Patient was placed on BiPAP by EMS and was transferred to ER. Otherwise patient denies any complaints of chest pain. Cough with occasional sputum production. Tmax 101.0 on admission. Patient was recently admitted to due to acute blood loss anemia from 07/11/2023 to 07/12/2023. requiring 1 unit PRBC transfusion. Eliquis was held and was discharged back to senior care facility for rehab. Chest x-ray showed chronic parenchymal changes with new small left pleural effusion and left lower lobe acute infiltrates/atelectasis. EKG showed sinus tachycardia with possible left atrial enlargement. Lower extremity venous duplex showed suboptimal study. Long segment left lower extremity DVT is present. Findings reflect chronic clot or partially occlusive thrombus. Correlate clinically. Mild to moderate diffuse subcutaneous edema is seen on images obtained. Laboratory data showed WBC 13.7 hemoglobin 8.9 and platelets 708, D-dimer 4.11 ABG showed pH 7.35 pCO2 39, pO2 183 Sodium 130 potassium 4.9 chloride 97 bicarb is 19 BUN 59 and creatinine 2.09 and blood sugar 106 and lactic acid 3.1 total bilirubin 3.5 and alk phos 268, proBNP 5700, troponin 0.027 and albumin 2.8 Influenza A, B, RSV and COVID-19 PCR not detected. 07/23/2023 Patient is seen and evaluated in follow-up. Patient was continued on BiPAP and is currently maintaining oxygen saturations above 90% on 3 L. Patient continues on IV heparin drip with left lower extremity DVT. VQ scan was ordered as jean t was unable to have CT of the chest for PE evaluation as kidney functions are elevated. Will hold on VQ scan for now as patient unable to tolerate lying flat. Continue IV heparin and will likely need to transition back to Eliquis. 07/24/2023 Patient is seen and evaluated in follow-up today with pulmonary following. Patient continues on 3 L via nasal cannula and has been off of the BiPAP. Fol low-up chest x-ray today shows increasing left lower lobe pleural effusion with associated atelectasis and/or infiltrate. Strongly encourage incentive spirometer although patient needs much encouragement as he is extremely weak and confused at times. Patient continues on IV heparin and will for now as there will be a follow-up chest x-ray in the a.m. and may require a thoracentesis with pulmonary following closely. Will discuss with pulmonary in regards to transitioning to Eliquis or if patient is appropriate for any further anticoagulation. Patient is afebrile with no reported chest pain or worsening shortness of breath. Patient is continued on IV steroids along with antibiotics and DuoNeb breathing treatments. Encouraged oral intake and recommend aspiration precautions with head of the bed elevated 45 degrees at all times. 07/25/2023 Patient is seen this morning currently asleep although arousable. Patient maintained on 3 L via nasal cannula with pulmonary following. Follow-up chest x-ray shows stable effusion and pulmonary reporting no plans for thoracentesis at this time. Patient was continued on IV heparin although will transition to oral Eliquis and monitor for any bleeding. There are no active signs of bleeding at this time although hemoglobin was noted to be 6.6 today. Will transfuse 1 unit of PRBC follow-up on repeat labs. Patient continues on antibiotics sided pneumonia. Patient is afebrile and denies any chest pain or palpitations. Patient has a congested cough and difficulty expectorating. Encouraged incentive spirometer use and sitting up more often. Continue with DuoNeb treatments at this time. 07/26/2023 Patient is seen and evaluated in follow-up status post 1 unit of PRBC. Hemoglobin is 7.4 today with no active bleeding noted. Patient continues on DuoNeb treatments and will continue on antibiotics with pulmonary following closely. 07/27/2023 Patient is currently lying in the bed. Awake alert. Still having shortness of breath and oxygen requirement at 3 L via nasal cannula. Patient is on antibiotics in the form of vancomycin and Zosyn. Nasal swab cultures positive for MRSA. Patient is also on IV Solu-Medrol 60 mg every 6 hourly and DuoNebs. Patient was started back on anticoagulation with heparin drip. Vascular surgery was consulted. DVT. Chest x-ray showed unchanged left pleural effusion with associated atelectasis or infiltrate. Laboratory data showed WBC 8.0 hemoglobin 8.1 and platelets 288 INR 1.3. FOBT negative. 07/28/2023 Patient is lying in the bed. Awake alert but lethargic and weak. And currently requiring 4 L oxygen via nasal cannula. Currently on heparin drip due to lower extremity DVT and also on IV antibiotics. Hemoglobin is fairly stable at 7.6. No hematuria noted. Patient is also being continued on IV Solu-Medrol and DuoNebs. Pulmonary is on board. Vascular surgery was consulted. Patient does have significant right upper extremity swelling with possible extravasation of the IV line. Duplex scan was ordered to rule DVT. Laboratory showed WBC 6.8 hemoglobin 7.6 and platelets 265 Sodium 139 potassium 3.5 chloride 110 bicarb is 23 BUN 53 and creatinine 1.24 and blood sugar 166. Calcium 8.0. 07/29/2023 Patient is seen in follow-up today with multiple medical consultations hilario bee. Patient is continued on 5 L via nasal cannula although 99% and discussed with nursing staff about weaning FiO2 as tolerated. Patient continues on IV heparin for lower extremity DVT and hemoglobin is stable above 7. No further hematuria noted. Vascular surgery consulted for possible IVC filter placement as patient is a poor candidate for anticoagulation. Patient continues with some right upper extremity swelling and DVT was ruled out, difficult to exclude a thrombus in the cephalic vein where an IV was placed. Continue with supportive care and elevating that extremity. Patient with significant weakness recommend PT/OT therapy daily. Patient will be returning to [facility] once cleared by consultations. Will await vascular surgery evaluation. Patient to continue on breathing inhalational treatments along with antibiotics and IV steroids. Pulmonary wedding makeup artist following. 07/30/2023 Patient is seen and evaluated this morning currently scheduled to undergo IVC filter placement as patient has been having drops in hemoglobin with no specific bleeding noted. Hematuria has resolved and was brief as patient continues with indwelling Howard catheter and urine is clear. Patient was initiated back on IV heparin for acute DVT in the left lower extremity although having complications with reduced hemoglobin, vascular was consulted for IVC filter. Patient is not a good candidate for anticoagulation. Hemoglobin was 6.1 today and will transfuse 2 units with Lasix in between and consult GI and appreciate input and recommendations. Patient denies any bleeding or difficulties with tolerating diet. Per nursing staff patient has had bowel movements that are brown with no blood noted, no dark melanotic stools noted. Patient is continued on antibiotics with pulmonary following as well congested weak cough likely chronic. Will obtain a chest x-ray. 07/31/2023 Patient is seen in follow-up with multiple medical consultations following his IVC filter placement. Patient had significant electrolyte and hemoglobin abnormalities this morning and awaiting repeat labs as patient received 2 units yesterday and hemoglobin was noted to be 6.1 again today. Repeat labs ordered and pending. Patient with critically low potassium and magnesium also awaiting repeat and will replace per protocol. Patient denies any bleeding or pain. Patient is maintained on antibiotics with pulmonary following with concerns of pneumonia on admission. Patient tolerating diet and denies any nausea or vomiting. GI has been consulted with concerns of possible GI bleed. Cardiology will be consulted as well for CHF. Will initiate low-dose Lasix and follow-up on repeat labs in the a.m. 08/01/2023 Patient is seen in follow-up today and hemoglobin remained stable above 8 with no active bleeding noted. GI consulted with concerns of possible GI bleed as patient had continued drop in hemoglobin. Patient is off anticoagulation and status post IVC filter placement. Not a good candidate for anticoagulation. Iron studies ordered and within normal limits. Will follow-up with repeat chest x-ray as patient having some vascular congestion. Continue IV Lasix daily and follow-up with repeat labs. Replace electrolytes per protocol. Recommend aspiration precautions and having the head of the bed elevated 30 to 45 degrees at all times and supervision with meals. 08/02/2023 Patient is seen and evaluated in follow-up today with multiple medical consultations following. GI was consulted with concerns of possible GI bleed although no active bleeding noted and hemoglobin is stable above 8. Patient is status post IVC filter placement and not a candidate for anticoagulation. Cardiology following and patient has been maintained on IV Lasix which is increased to twice daily per pulmonary. Patient to follow-up with chest x-ray and also continue with breathing treatments. Antibiotics have been discontinued and patient has received adequate antibiotics during hospitalization. Patient being transition to oral prednisone. No plans of endoscopic intervention at this time and will follow-up in the outpatient setting as needed. Patient with significant weakness and per nursing staff bilateral heel wounds unstageable, present on admission and there is continued noted left foot drop. Per nursing staff patient is two-person max assist and was at [facility] post hip fracture. Plan is for returning to [facility] on discharge. Patient is afebrile and denies chest pain or shortness of breath. Patient has been tolerating diet and would recommend continuing with aspiration precautions. 08/03/2023 Patient is evaluated today currently sitting up in the chair reports some improvements in shortness of breath. Patient is continued on breathing inhalational treatments and has been transition to oral prednisone. Patient has completed a course of antibiotics and being closely monitored off antibiotic therapy. Continue current regimen including IV Lasix for an additional 24 hours and will follow-up on repeat labs and possibly transition to oral Lasix. Cardiology following as well. Currently off anticoagulation and hemoglobin remained stable above 8.1. 08/04/2023 Patient is seen in follow-up today being watched off antibiotic therapy currently maintained on 4 L of oxygen maintaining oxygen saturations above 95%. Patient continued on treatments and has been transition to Lasix daily and will follow-up with repeat chest x-ray in a.m. Patient with significant weakness needs to be reevaluated by physical therapy and discuss further with case management/social work regarding discharge planning as patient will be returning to [facility]. Patient is afebrile and denies chest pain or shortness of breath. Hemoglobin is stable status post IVC filter placement. 08/04 Patient is seen in follow-up with no acute overnight issues noted. Patient being followed by multiple medical consultations showing some improvements although slow to improve. Patient continues with significant weakness and plans on returning to [facility]. Awaiting follow-up labs and replace electrolytes per protocol. Patient being transition from IV Lasix. Encouraged oral intake. 08/06/2023 Patient is seen in follow-up today with no acute overnight issues. Patient is having lower blood pressure readings and reports to feeling fatigued today and not eating much. Patient has not been eating much throughout hospitalization. Recommend aspiration precautions and supervision with meals. Would also recommend Ensure supplements between meals. Chest x-ray showed some pulmonary venous congestion with mild interstitial edema bilateral pleural effusions that were slightly smaller in size and overall appearance seems slightly improved. Has been transitioned to oral Lasix and awaiting repeat labs today. Per nursing staff blood pressures have been low including manuals and will give 1 dose of midodrine and add as needed midodrine as well. Patient has been encouraged to increase oral intake. Patient remains no code and family would like patient to return to [facility] on discharge. Plan is for return to [facility]. Possible discharge planning in the next 24 hours. 08/07/2023 Patient is seen and evaluated in follow-up today reports not feeling well with no specific complaints in general. Patient reports he does not want to get up in the chair today and would like to remain sitting up in bed. Patient is awaiting his to visit him. Patient is afebrile maintained on 5 L via nasal cannula with no reports of worsening shortness of breath. Patient has not been eating very well and will add Megace and encourage small frequent meals. Discussed with at the bedside regarding overall treatment plan and discussion of palliative versus hospice was explained and will consult for informational hospice and is agreeable. Patient has had frequent hospitalizations and clinical deterioration with no significant improvement noted. Patient is currently no code. Will continue with breathing treatments and oral Lasix daily. Blood pressure is improving on midodrine and will monitor for improvements. Insurance authorization was obtained for [facility]. Prognosis remains extremely poor and guarded and will consider possible discharge planning in the next 24 to 48 hours. Patient will be returning to [facility]. Family to discuss further regarding hospice. 08/08/2023 Patient is seen in follow-up this morning with no acute overnight issues noted. Patient continues on 4 to 5 L via nasal cannula with continued treatments and has been transition to oral Lasix. Patient's chest x-ray continues to show pulmonary vascular congestion with no significant worsening or improvement. Patient is about baseline. Plan is for return to [facility] and family will discuss further regarding possible palliative versus hospice and comfort care. Patient has met with family and [facility] and has received information and would like to discuss further with daughter on Saturday regarding hospice. Patient is afebrile with no worsening shortness of breath and denies chest pains. Tolerating diet and encouraged pleasure foods. Patient does not eat much although reports is eating. Continue with supplements between meals. Possible discharge planning in 24 hours. Review of systems: Constitutional: No reports of fatigue, fever, or chills Cardiovascular: No reports of chest pain or palpitations Respiratory: No reports of worsening shortness of breath, reports weak cough that is chronic GI: No reports of nausea, vomiting, or diarrhea, reports not eating very much an d not much of an appetite : No reports of dysuria or retention, no further hematuria Neurovascular: reports of extreme generalized weakness All medications have been reviewed PHYSICAL EXAMINATION: Patient is sitting up in the bed., awake alert and oriented x 2, Baseline. Currently on 5 L via nasal cannula, well-developed, thin built, elderly appearing, ill-appearing HEENT: Normocephalic. Neck is supple. Pupils reactive. Nostrils clear. Oral cavity is moist. Neck reveals no JVD, carotid bruits, or thyromegaly. CHEST EXAMINATION: Trachea is central. Symmetrical expansion. Left basilar coarse sounds. Mild expiratory wheeze.. Faint crackles noted at the bases, bronchial congestion noted with minimal improvement, weak cough noted. CARDIAC: S1, S2 are muffled ABDOMEN: Soft. Thin. Bowel sounds normal. No organomegaly. No abdominal bruits. Extremities: Minimal edema. No clubbing or cyanosis, bilateral lower extremity swelling improving , foot drop noted on the left as well. Left hip surgical site has scabbing noted with no redness or drainage noted, healing well and approximated Neurologically awake, alert, oriented x 2-3. Diffusely weak Skin: No rash or skin lesions. Pale, bilateral heel unstageable ulcers noted Psychiatric: Cooperative. Could not be assessed completely Musculoskeletal: No joint swelling or deformity. Assessment: Acute on chronic hypoxemic respiratory failure due to left lower lobe pneumonia and left sided pleural effusion and COPD. Patient was requiring BiPAP on admission. Transitioned to nasal cannula, currently 5 L. 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 Acute on chronic congestive heart failure with systolic dysfunction Acute on chronic anemia, acute blood loss secondary to anticoagulation and hematuria Hematuria, possibly secondary to resumption of anticoagulation versus possible trauma as patient does occasionally pull at IVs and tubings. Resolved Sepsis secondary to pneumonia, bacterial, present on admission Acute left lower extremity DVT. Elevated D-dimer level. CT PE could not be done due to elevated creatinine level. Right upper extremity arm swelling, DVT ruled out, thrombus of the cephalic vein from an IV site Acute kidney injury likely prerenal with possible ATN. CKD stage III. Hypovolemic hyponatremia, secondary to poor oral intake Lactic acidosis 3.1 on admission, secondary to left lower lobe pneumonia, improved History of mechanical fall status post left hip cemented unipolar hemiart hroplasty on 07/05/2023 Recent admission with anemia requiring blood transfusion 1 unit PRBC. Paroxysmal atrial fibrillation, currently rate controlled status post IVC filter placement Nonischemic cardiomyopathy with ejection fraction 45 to 50%. EF improved to 55 to 60% as per recent echocardiogram on 07/05/2023 Coronary artery disease nonobstructive Bilateral heel unstageable ulcers, present on admission Hypertension although currently hypotensive, likely hypovolemic from poor oral intake and continued IV diuresis Hyperlipidemia History of tobacco use History of EtOH abuse GI prophylaxis with PPI DVT prophylaxis, anticoagulant being held due to anemia, status post IVC filter placement No code Plan: Patient is being followed by multiple consultations maintained on 5 L via nasal cannula . Pulmonary following and has discontinued antibiotics and has been transitioned to oral steroid taper. Patient will continue with breathing treatments. Chest x-ray continues to show pleural effusions with pulmonary congestion and stable Patient is status post IVC filter placement and hemoglobin is stable above 8 with no active bleeding noted currently off anticoagulation GI has evaluated the patient and hemoglobin is stable with no active bleeding noted recommending outpatient follow-up with endoscopic if needed Patient has been transition to oral Lasix daily patient is not a good candidate for anticoagulation given significant anemia and drop in hemoglobin along with recurrent frequent falls Recommend PT/OT therapy evaluation, case management following as patient will be returning to [facility] on discharge Continue with wound care for unstageable ulcers noted on bilateral heels, continue with frequent offloading Home medications reviewed and resumed as appropriate Patient's blood pressure on the lower side and will continue midodrine as needed. Recommend sitting up in the chair more often and up and out of the bed at least 3 times daily. Patient reports he is adamant he is not sitting up in the chair today Patient is no code. Had a lengthy discussion with at the bedside today and have placed a consult to hospice for informational and would like to discuss further with daughter before making any final decisions. Hospice did evaluate and discuss overall philosophy and may consider this in the outpatient setting. Patient and are speaking with daughter on Saturday this weekend. Possible discharge in the next 24 hours due to multiple complex medical issues, prognosis is guarded, patient is extremely high risk for frequent readmissions and has had multiple h ospitalizations most recently. This was discussed with and she is in agreement with attempting to avoid frequent rehospitalization's. Again family to discuss further regarding possible hospice. The impression and plan of care has been dictated by Akila Clemente, Nurse Practitioner as directed. Dr. Lj MD I have performed a history and examination and MDM of this patient, discussed the same with the dictator, and agree with the dictator's assessment and plan as written ,documented as a scribe. Based on total visit time, I have performed more than 50% of the visit. Objective - Vital Signs Vital signs: Vital Signs Temp 97.3 F L 08/09/23 01:52 Pulse 98 08/09/23 01:52 Resp 15 08/09/23 01:52 BP 120/73 08/09/23 01:52 Pulse Ox 92 L 08/09/23 01:52 FiO2 40 07/23/23 02:57 Intake & Output 08/08/23 08/08/23 08/09/23 06:59 18:59 06:59 Output Total 1999 1827 1200 Balance -1999 Weight 78.2 kg 77 kg Output: Urine 1999 1824 1199 Other: Voiding Method Indwelling Catheter Indwelling Catheter Indwelling Catheter # Bowel Movements 1 1 - Labs CBC & Chem 7: 08/05/23 08:08 08/06/23 06:34
[2023-08-09 08:52] VITALS: TEMP 97.5
--- NOTE | 2023-08-09 09:26 | P.DS ---
Providers Date of admission: 07/22/23 00:57 Expected date of discharge: 08/09/23 Attending physician: oJlene Shultz Consults: 07/22/23 03:39 Consult Physician Urgent Consulting Provider: Collin Rocha Consult Reason/Comments: Pneumonia Do you want consulting provider notified?: Already Contacted 07/30/23 14:00 Consult Physician Urgent Consulting Provider: Silva Santizo Consult Reason/Comments: anemia, poss GI bleed?? Do you want consulting provider notified?: Yes Primary care physician: Tierra Mcfarland DO Hospital Course: Final diagnosis Acute on chronic hypoxemic respiratory failure due to left lower lobe pneumonia and left sided pleural effusion and COPD. Patient was requiring BiPAP on admission. Transitioned to nasal cannula, currently 5 L. Patient was chronically wearing 2 to 3 L outpatient. Acute on chronic congestive heart failure with systolic dysfunction Acute on chronic anemia, acute blood loss secondary to anticoagulation and hematuria Hematuria, possibly secondary to resumption of anticoagulation versus possible trauma as patient does occasionally pull at IVs and tubings. Resolved Sepsis secondary to pneumonia, bacterial, present on admission Acute left lower extremity DVT. Elevated D-dimer level. CT PE could not be done due to elevated creatinine level. Right upper extremity arm swelling, DVT ruled out, thrombus of the cephalic vein from an IV site Acute kidney injury likely prerenal with possible ATN. CKD stage III. Hypovolemic hyponatremia, secondary to poor oral intake Lactic acidosis 3.1 on admission, secondary to left lower lobe pneumonia, improved History of mechanical fall status post left hip cemented unipolar hemiarthroplasty on 07/05/2023 Recent admission with anemia requiring blood transfusion 1 unit PRBC. Paroxysmal atrial fibrillation, currently rate controlled status post IVC filter placement Nonischemic cardiomyopathy with ejection fraction 45 to 50%. EF improved to 55 to 60% as per recent echocardiogram on 07/05/2023 Coronary artery disease nonobstructive Bilateral heel unstageable ulcers, present on admission Hypertension although currently hypotensive, likely hypovolemic from poor oral intake and continued IV diuresis Hyperlipidemia History of tobacco use History of EtOH abuse GI prophylaxis with PPI DVT prophylaxis, anticoagulant being held due to anemia, status post IVC filter placement No code Discharge disposition Patient is being discharged in a stable condition with guarded prognosis to [facility]. Patient will follow-up with Dr. Mcfarland in the outpatient setting upon discharge. Patient is to continue with current medication regimen. Total time taken is greater than 35 minutes. Hospital course This is a 88-year-old male who was recently admitted with increased shortness of breath requiring more oxygen initially admitted on BiPAP from [facility] and chronically wears 2 to 3 L outpatient. Patient has been recently hospitalized for a left hip fracture and had gone back to [facility] where he resides also found to have a left lower extremity DVT. Patient had been off anticoagulation as he continued to have anemia and not a good candidate for anticoagulation. Anticoagulation was resumed after being on IV heparin as patient's hemoglobin was stable although developed worsening anemia requiring transfusions. Vascular surgery evaluated the patient and placed IVC filter. Patient also had some right upper extremity swelling noted during admission which was found to be an acute thrombus with no DVT noted. Patient being followed by multiple medical consultations including pulmonary and cardiology with adjustments made to medications as patient was also CHF exacerbation. Patient did have an elevated procalcitonin on admission and was on IV antibiotics for almost 2 weeks. Adequate antibiotic usage and will not require antibiotics further on discharge. Patient also having some blood pressure issues with adjustments to medications made and will continue on midodrine 3 times daily and adjust as needed. Patient was diuresed and will continue on oral Lasix 40 daily. Patient was evaluated by wounds for bilateral unstageable heels and will continue with current wound care instructions as described below. Patient is almost max assist and is mostly bedbound. Lengthy discussion was had about overall prognosis and significant comorbidities with family and patient and are agreeable to no code. Discussion was also had about possible hospice and would like to discuss further with his daughter and this Saturday. [facility] did meet with the family and will follow-up on Saturday. Patient has been cleared by consultations for discharge to [facility]. Strongly recommend aspiration precautions and head of the bed elevated 30 to 45 degrees at all times with meals and supervision with meals. Patient not eating much and have added appetite stimulant. Also encouraged family to bring in foods he will enjoy to and increase oral intake. Patient reports he just wants to go back to [facility]. Currently no reports of chest pain, no worsening shortness of breath, or palpitations. Patient is afebrile. No reports of nausea or vomiting and patient is tolerating diet. Patient will be going to [facility] today. Due to significant comorbidities, overall prognosis is poor and guarded. Physical exam: Gen: This is a 88-year-old male who is awake, alert and oriented x 2, baseline, thin built, elderly appearing, emaciated with significant muscle wasting noted HEENT: Head is atraumatic, normocephalic. Pupils equal, round. Sclerae is anicte katja. NECK: Supple. No JVD. No lymphadenopathy. No thyromegaly. LUNGS: Diminished breath sounds bilaterally with scattered rhonchi upper bronchial congestion and faint crackles noted . No intercostal retractions. HEART: S1, S2 are muffled ABDOMEN: Soft. Thin bowel sounds are present. No masses. No tenderness. EXTREMITIES: No pedal edema. No calf tenderness. Bilateral lower extremity edema although improved, foot drop on the left, bilateral heel ulcers unstageable with offloading boots noted NEUROLOGICAL: Patient is awake, alert and oriented x2. Cranial nerves 2 through 12 are grossly intact. Fusilli weak Please refer to medication reconciliation sheet for a list of medications. The impression and plan of care has been dictated by Akila Clemente, Nurse Practitioner as directed. Dr. Kyra MD I have performed a history and examination and MDM of this patient, discussed the same with the dictator, and agree with the dictator's assessment and plan as written ,documented as a scribe. Based on total visit time, I have performed more than 50% of the visit. Patient Condition at Discharge: Serious Plan - Discharge Summary Discharge Rx Participant: No New Discharge Prescriptions: New Potassium Chloride ER [K-Dur 20] 20 meq PO BID tab Magnesium Oxide [Mag-Ox] 400 mg PO BID tab Megestrol [Megace] 40 mg PO DAILY tab Salmeterol 50 mcg [Serevent Diskus] 1 puff INHALATION RT-BID each Acetaminophen Tab [Tylenol] 650 mg PO Q6HR PRN tab PRN Reason: Fever And/ Or Pain Folic Acid 1 mg PO DAILY tab Furosemide [Lasix] 40 mg PO DAILY tab Multivitamins, Thera [Multivitamin (formulary)] 1 each PO DAILY@1200 tab Simethicone 40 mg/0.6 ml Drops [Mylicon Drops] 40 mg PO QID PRN ml PRN Reason: Bloating Midodrine [ProAmatine] 10 mg PO AC-TID tab QUEtiapine [SEROquel] 12.5 mg PO HS PRN tab PRN Reason: Agitation Tiotropium 2.5 Mcg/Puff [Spiriva Respimat 2.5 Mcg] 2 puff INHALATION RT-DAILY each Albuterol Inhaler [Ventolin Hfa Inhaler] 2 puff INHALATION RT-QID each Continue Latanoprost Ophth [Xalatan 0.005%] 1 drop BOTH EYES HS Thiamine [Vitamin B-1] 100 mg PO DAILY #30 tab Famotidine [Pepcid] 20 mg PO DAILY Albuterol Inhaler [Ventolin Hfa Inhaler] 2 puff INHALATION RT-Q6H PRN PRN Reason: Shortness Of Breath Magnesium Hydroxide [Milk of Magnesia] 2,400 mg PO DAILY PRN PRN Reason: Constipation Docusate [Colace] 100 mg PO BID Metoprolol Tartrate [Lopressor] 12.5 mg PO BID@0700,1900 Pantoprazole [Protonix] 40 mg PO DAILY Atorvastatin [Lipitor] 20 mg PO HS Ferrous Sulfate [Iron (65 MG Elemental)] 325 mg PO DAILY #30 tab Menthol [Icy Hot] 1 patch TRANSDERM BID Ipratropium-Albuterol Nebulize [Duoneb 0.5 mg-3 mg/3 ml Soln] 3 ml INHALATION RT-TID Changed Sennosides [Senokot] 8.6 mg PO DAILY PRN #0 PRN Reason: Constipation Discontinued Acetaminophen [Tylenol 8 Hour] 650 mg PO Q6H PRN PRN Reason: Pain HYDROcodone/APAP 5-325MG [[place] 5-325] 1 tab PO Q6HR PRN #6 tab PRN Reason: Pain Doxycycline [Vibramycin] 100 mg PO BID@0700,1600 lisinopriL [Zestril] 2.5 mg PO DAILY@0700 Discharge Medication List Latanoprost Ophth [Xalatan 0.005%] 1 drop BOTH EYES HS 01/02/17 [History] Thiamine [Vitamin B-1] 100 mg PO DAILY #30 tab 11/27/21 [Rx] Famotidine [Pepcid] 20 mg PO DAILY 08/29/22 [History] Albuterol Inhaler [Ventolin Hfa Inhaler] 2 puff INHALATION RT-Q6H PRN 10/27/22 [History] Atorvastatin [Lipitor] 20 mg PO HS 01/21/23 [History] Magnesium Hydroxide [Milk of Magnesia] 2,400 mg PO DAILY PRN 01/21/23 [History] Ferrous Sulfate [Iron (65 MG Elemental)] 325 mg PO DAILY #30 tab 07/08/23 [Rx] Docusate [Colace] 100 mg PO BID 07/11/23 [History] Menthol [Icy Hot] 1 patch TRANSDERM BID 07/11/23 [History] Metoprolol Tartrate [Lopressor] 12.5 mg PO BID@0700,1900 07/11/23 [History] Pantoprazole [Protonix] 40 mg PO DAILY 07/11/23 [History] Ipratropium-Albuterol Nebulize [Duoneb 0.5 mg-3 mg/3 ml Soln] 3 ml INHALATION RT-TID 07/22/23 [History] Acetaminophen Tab [Tylenol] 650 mg PO Q6HR PRN tab 08/09/23 [Rx] Albuterol Inhaler [Ventolin Hfa Inhaler] 2 puff INHALATION RT-QID each 08/09/23 [Rx] Folic Acid 1 mg PO DAILY tab 08/09/23 [Rx] Furosemide [Lasix] 40 mg PO DAILY tab 08/09/23 [Rx] Magnesium Oxide [Mag-Ox] 400 mg PO BID tab 08/09/23 [Rx] Megestrol [Megace] 40 mg PO DAILY tab 08/09/23 [Rx] Midodrine [ProAmatine] 10 mg PO AC-TID tab 08/09/23 [Rx] Multivitamins, Thera [Multivitamin (formulary)] 1 each PO DAILY@1200 tab 08/09/23 [Rx] Potassium Chloride ER [K-Dur 20] 20 meq PO BID tab 08/09/23 [Rx] QUEtiapine [SEROquel] 12.5 mg PO HS PRN tab 08/09/23 [Rx] Salmeterol 50 mcg [Serevent Diskus] 1 puff INHALATION RT-BID each 08/09/23 [Rx] Sennosides [Senokot] 8.6 mg PO DAILY PRN #0 08/09/23 [Rx] Simethicone 40 mg/0.6 ml Drops [Mylicon Drops] 40 mg PO QID PRN ml 08/09/23 [Rx] Tiotropium 2.5 Mcg/Puff [Spiriva Respimat 2.5 Mcg] 2 puff INHALATION RT-DAILY each 08/09/23 [Rx] Follow up Appointment(s)/Referral(s): Tierra Mcfarland DO [Primary Care Provider] - 1-2 days Wound Center,[facility] [NON-STAFF] - 2 Weeks Activity/Diet/Wound Care/Special Instructions: Patient is going to [facility] [employer] Activity as tolerated Patient and family did discuss possible hospice and [facility] as has evaluated and provided information and will touch base with the family after 08/11/2023 Continue heart healthy diet. Strongly recommend aspiration precautions with head of the bed elevated 30 to 45 degrees at all times and supervision with meals Continue appetite stimulant Continue to encourage oral intake and pleasure foods with family bringing food that he will enjoy Continue Magic cups Continue with local wound care to bilateral foot ulcer wounds on the heels by applying honey gel and bordered foam to the site and continue using offloading boots Patient is status post IVC filter and not a good candidate for anticoagulant due to the continued low hemoglobin Discharge Disposition: TRANSFER TO SNF/ECF
[2023-08-09 11:13] VITALS: BP 107/69
[2023-08-09 11:57] LABS: African American GFR (CKD) 76 (>60 ml/min/1.73 sqM); Anion Gap 4 mmol/L; Blood Urea Nitrogen 40 mg/dL (9-20); Calcium 8.3 mg/dL (8.4-10.2); Carbon Dioxide 28 mmol/L (22-30); Chloride 98 mmol/L (98-107); Glucose 122 mg/dL (74-99); Non-African American GFR(CKD) 66 (>60 ml/min/1.73 sqM); Sodium 130 mmol/L (137-145)
[2023-08-09 12:09] LABS: Anisocytosis Slight; Basophils % (A) 0 %; Eosinophils % (A) 0 %; HGB 9.4 gm/dL (13.0-17.5); Lymphocytes # (A) 0.6 k/uL (1.0-4.8); Lymphocytes % (A) 9 %; MCH 27.9 pg (25.0-35.0); MCHC 31.3 g/dL (31.0-37.0); MCV 89.4 fL (80.0-100.0); Mean Platelet Volume 8.1; Monocytes # (A) 0.4 k/uL (0-1.0); Monocytes % (A) 6 %; Neutrophils % (A) 80 %; Platelet Count 271 k/uL (150-450); RBC 3.36 m/uL (4.30-5.90); RDW 17.1 % (11.5-15.5); WBC 6.3 k/uL (3.8-10.6)
--- NOTE | 2023-08-09 12:45 | P.PN ---
Subjective Progress Note Date: 08/09/23 Patient is an 88-year-old male with past medical history significant for hypertension, hyperlipidemia, paroxysmal atrial fibrillation previously anticoagulated on Eliquis, frequent falls. Patient recently fell from his wheelchair and had sustained a left hip fracture. He underwent a left hip cemented unipolar hemiarthroplasty on 07/05/2023. He was then discharged back to his extended care facility. Patient was sent back in from his ECF yesterday for evaluation of acute dyspnea. He was reportedly diagnosed with pneumonia earlier in the day, and started on doxycycline. When EMS arrived to the [facility], he was hypoxic with an SpO2 of less than 80%. He was also tachypneic and tachycardic and in respiratory distress. He was transferred to our facility on BiPAP. He is currently sitting up in bed, in some respiratory distress. On BiPAP with settings 12/6 and FiO2 of 100%. Respiratory rate is in the mid 30s and tidal volumes are greater than 800. He is unable to provide any information at this time. There is accessory muscle use. ABG done on above-mentioned settings showed a PaO2 of 183, pCO2 of 39, pH of 7.35. Chest x-ray shows a left lower lobe infiltrate and or atelectasis and small left-sided pleural effusion, possibly parapneumonic. CBC on arrival: WBC count of 30.7, hemoglobin 8.9, hematocrit 27.8, platelets 708. CMP on arrival: Sodium 130, potassium 4.9, chloride 97, serum bicarb 19, BUN 59, creatinine 2.09, glucose 106. Normal saline infusing at 130 MLS per hour. LFTs mildly elevated. Troponin 0.027. NT proBNP 5700. There is a component of acute on chronic kidney injury. Negative for influenza, RSV, COVID. Patient's D-dimer was elevated. For this reason a venous Doppler of the lower extremities was ordered, and the patient was found to have a left lower extremity DVT. Patient was previously anticoagulated on Eliquis, however, this has been stopped after his most recent fall and hip fracture. Left hip incision is approximated and clean and dry. No drainage. Hemoglobin is stable at 8.9 g/dL. Patient denies any bright red blood, melanotic stools, or hematemesis. Patient's respiratory status is currently labile, will continue to closely monitor. Patient may need transfer to the intensive care unit. In the emergency department and I had a lengthy discussion with the . The patient is currently on a BiPAP and is tolerating the BiPAP reasonably well with generation of adequate tidal volume above 500. No significant tachypnea. The patient is on a pressure setting of 12/6 and a meters of water and FiO2 has been weaned down.The white cell count from today is 29 with a hemoglobin of 7.6 and a platelet count of 527. Blood gases show a pH of 7.35 with a pCO2 of 39 and pO2 of 183 and this was on FiO2 of 100%. Viral screen has been negative and the procalcitonin level is at 4.2. BUN is at 69 with a creatinine of 2.09. Cultures were sent and the results are still pending for now. The chest x-ray showed a new area of consolidation of the left lower lobe in addition to a small left-sided pleural effusion. Ultrasound of the chest was also ordered and the results were consistent with a small left-sided pleural effusion with a 4.2 cm pocket. 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 Noted the patient was on anticoagulation with Eliquis in the past and this anticoagulation was discontinued because of his frequent falls. Noted the procalcitonin level is elevated at 4.2 On today's evaluation of 07/23/2023, seen the patient for a follow-up. The patient got moved out of the emergency department and the patient is currently on the medical floor. He was taken off the BiPAP this morning and the patient is currently on 2 L of O2 with a pulse ox of 98%. Alert awake and communicating. The white cell count is dropped down to 17.4 with a hemoglobin of 8.2 and a platelet count of 579. Hemodynamically stable. There is also interval improvement in the creatinine which is down to 1.43 with a BUN of 61. Sodium levels at 134. The patient remains on a combination of Zosyn and vancomycin. Remains on bronchodilators. Remains on IV Solu-Medrol 60 mg every 6 hours. The patient is also on IV heparin. PTT is therapeutic at this point in time. No evidence of any bleeding. Awake and alert and communicating. On today's evaluation of 07/24/2023, the patient is being seen for a follow-up. Clinically stable and the patient is currently on liters of oxygen by nasal cannula with a pulse ox of 94%. Repeat chest x-ray was done today and it shows some increase in the left lower lobe pleural effusion. There is also some infiltration/atelectasis. However clinically, the patient is stable. The patient is currently off the BiPAP. He has developed a small left-sided pleural effusion, likely parapneumonic in nature. Ultrasound of the chest was done yesterday showed a 4.2 cm pocket in the left lung. The WBC count is at 10.1 whi ch is improved with a hemoglobin of 7.7 slightly lower compared to yesterday with a platelet count of 537. Rest of the electrolytes are still pending. The patient remains on IV heparin. Remains on Zosyn and vancomycin coverage. No significant tachycardia. The patient is on DuoNeb updrafts. The patient on IV Solu-Medrol. The patient on Zosyn and vancomycin. The patient is on metoprolol 12.5 mg p.o. twice a day. On today's evaluation on 07/25/2023, the patient continues to improve. The white cell count is down to 7.8. The patient remains on 3 L of oxygen by nasal cannula. No significant respite distress. Repeat chest x-ray was done today and shows a stable left-sided pleural effusion that has not changed in size and the patient also has some stable infiltration of the left lung base consistent with pneumonia but small parapneumonic effusion. Hemoglobin is currently down to 6.6. The patient will be given a unit of packed RBC accordingly. Rest of the electrolytes show a creatinine of 1.33 with a BUN of 56 and a sodium levels at 138 with a potassium level of 4.1. The patient remains on IV heparin. He does have a DVT of the left lower extremity. No evidence of any GI bleeding at this point in time while being on IV heparin. On today's evaluation on 07/26/2023, the patient is being seen for a follow-up. The patient was given a unit of packed RBC yesterday and the hemoglobin is currently at 7.4. He is on oxygen 3 L with a pulse ox of 92%. He is lethargic and weak. Nevertheless denies having any significant shortness of breath. No chest pain. Remains on Zosyn and vancomycin. Nasal screen for MRSA was positive. Possibility of MRSA pneumonia cannot be completely excluded. The patient also developed a small parapneumonic effusion not amenable for thoracen tesis. He is a DNR/DNI CODE STATUS. Remains on bronchodilators. Remains on steroids. In addition, the patient is experiencing some hematuria at baseline and anticoagulation was stopped. Based on his high risk for anticoagulation and previous history of falls and concern for bleed, anticoagulation was placed on hold and vascular surgery was consulted for IVC filter placement. On today's evaluation, the patient is essentially unchanged remains on 3 L of oxygen by nasal cannula with a pulse ox of 97%. Chest x-ray was repeated this morning and the patient has an unchanged left-sided pleural effusion and left lower lobe consolidation. Remains on Zosyn and vancomycin. Labs from today shows a white cell count of 8 with a hemoglobin of 8 and a platelet count of 329. Electrolytes are within normal limits from yesterday. Creatinine is down to 1.2. No active hematuria and patient will be placed back on IV heparin pending vascular surgery consult 07/28/2023, patient is being seen for a follow-up. The patient is currently on oxygen at 4 L. Calm and comfortable. Noted frustrated. He is weak and quite debilitated at this point in time. He remains on Zosyn and vancomycin. He remains on IV heparin. No evidence of any hematuria. Howard catheter is in place. Hemoglobin is at 7.6. BUN is 53 with creatinine 1.24 levels at 139. Limited congested cough. No significant sputum production. He did encounter some swelling l upper extremity and a Doppler showed no evidence of any DVT in the right upper extremity. Nonocclusive thrombus was seen within the right cephalic vein. The patient is seen today July 29, 2023 in follow-up on the regular medical floor. He is currently sitting up in bed. Awake and alert in no acute distress. He is maintaining good O2 saturations in the upper 90s on 5 L/min per nasal cannula. He is afebrile. Hemodynamically stable. He remains on a heparin drip. Continued on bronchodilators and steroids. Antibiotics in the form of vancomycin and Zosyn. The patient is seen today July 30, 2023 in follow-up on the regular medical floor. He is awake and alert in no acute distress. He is maintaining O2 saturations in the 90s on 5 L/min per nasal cannula. White count 4.5. Hemoglobin 6.1. Platelets 173. Creatinine 1.24. He remains on a heparin drip. The plan is for IVC filter placement today. Packed red blood cell transfusion has been ordered. Remains on vancomycin and Zosyn. Continued on Flovent, albuterol, Spiriva. Remains on IV Solu-Medrol. The patient is seen today July 31, 2023 in follow-up on the regular medical floor. He is sitting up in bed. Awake and alert in no acute distress. Continuing to maintain O2 saturations in the 90s on 5 L/min per nasal cannula. He has been afebrile. Hemodynamically stable. He did go for IVC filter placement yesterday. Groin site is stable. Blood and sputum cultures revealed no growth. White count 6.6. Hemoglobin 6.1. Platelets 111. He is status post 3 units of packed red blood cells this admission. He remains on Serevent, Flovent, Spiriva. Remains on IV Solu-Medrol. Remains on antibiotics in the form of vancomycin and Zosyn. The patient is seen today August 01, 2023 in follow-up on the regular medical floor. He is awake and alert in no acute distress. Sitting up in bed having breakfast. Denies any worsening shortness of breath, cough or congestion. He is maintaining good O2 saturations in the upper 90s on 6 L/min per nasal cannula. He is afebrile. Hemodynamically stable. He is status post 3 units of packed red blood cells this admission. Blood culture revealed no growth. Sputum culture revealed no growth. White count 8.7. Hemoglobin 8.4. Platelets 155. Sodium 135. Potassium 3.6. Bicarb 21. BUN 48. Creatinine 1.17. Glucose 153. He remains on bronchodilators, steroids. Antibiotics in the form of vancomycin and Zosyn. The patient is seen today August 02, 2023 in follow-up on the regular medical floor. He is currently sitting up in bed. Awake and alert in no acute distress. He denies any worsening shortness of breath, cough or congestion. He is still requiring 5 L high flow nasal cannula to maintain O2 saturations in the 90s. His chest x-ray is showing evidence of increasing pulmonary edema. He is currently on Lasix 40 mg p.o. daily. He remains afebrile. Hemodynamically stable. He is status post 3 units of packed red blood cells this admission. Current hemoglobin 8.1. Platelets 179. White count 12.0. Sodium 134. Potassium 3.4. Bicarb 24. BUN 42. Creatinine 1.02. Glucose 152. He completed his course of antibiotics. The patient is seen today August 03, 2023 in follow-up on the regular medical floor. He is awake and alert in no acute distress. Denies any worsening shortness of breath, cough or congestion. He is on 4 L nasal cannula with O2 saturations in the 90s. His chest x-ray is showing bibasilar infiltrates. He does have some continued crackles in the bases more so on the left. He has less swelling in his feet and hands. He has diuresed over 2 L yesterday and again today. He remains on Lasix 40 mg IV every 12 hours. White count 11.1. Hemoglobin 8.1. Platelets 198. Sodium 132. Potassium 4.2. Bicarb 22. Creatinine 0.93. BUN 38. Glucose 171. He is continued on bronchodilators. Continued on prednisone taper. The patient is seen today August 04, 2023 in follow-up on the regular medical floor. He is sitting up in bed having lunch. Denies any worsening shortness of breath, cough or congestion. No chest pain or palpitations. He is continued on Lasix 40 mg every 12 hours. Remains on bronchodilators. Maintain O2 saturation in the 90s on 4 L/min per nasal cannula. He has received 3 units of packed red blood cells this admission. Current hemoglobin 8.7. Platelets 217. White count 15.5. Sodium 135. Potassium 4.6. Bicarb 25. BUN 34. Creatinine 1.1. Glucose 139. He is currently in a -3.7 L balance. The patient is seen today August 05, 2023 in follow-up on the regular medical floor. He is currently resting comfortably in bed. Awake and alert in no acute distress. Maintaining good O2 saturations in the 90s on 4 L/min per nasal cannula. Chest x-ray is showing improved aeration. There is pulmonary venous congestion with mild interstitial edema. Improved bilateral pleural effusions. White count 14.1. Hemoglobin 8.7. Platelets 271. Sodium 128. Potassium 4.0. Bicarb 31. BUN 35. Creatinine 1.05. Glucose 136. He is continued on [facility] hodilators, prednisone. Remains on IV diuretics. Currently on a negative 3.2 L balance. He is status post 3 units of packed red blood cells this admission. The patient is seen today August 06, 2023 in follow-up on the regular medical floor. He is awake and alert in no acute distress. Feeling better today compared to yesterday. He has been slow to progress. He remains quite weak and debilitated. Continues to maintain good O2 saturations in the 90s on 4 L/min per nasal cannula. He is afebrile. Hemodynamically stable. He is status post 3 units of packed red blood cells this admission. Current hemoglobin 8.7. Blood and sputum culture had revealed no growth. Nasal swab was positive for MRSA. He has been transition to oral diuretics. Currently in -2.1 L balance. He is continued on bronchodilators and prednisone. The patient is seen today August 07, 2003 in follow-up on the regular medical floor. He is currently resting in bed. He remains very weak and debilitated. Not wanting to get out of bed. He is maintaining O2 saturations in the 90s on 5 L/min per nasal cannula. Chest x-ray continues to show coarse density in the right upper lobe reflecting possible infiltrate. Bilateral small effusions left greater than right with right basilar infiltrate/atelectasis. Continued pulmonary venous congestion. He is status post 3 units of packed red blood cells. Most recent hemoglobin 8.7. Procalcitonin down to 0.63 and 4.20. He remains on bronchodilators. Continued on diuretics. Completed antibiotics. Currently in a -800 mL balance. Howard catheter remains in place. The patient is seen today August 08, 2023 in follow-up on the regular medical floor. He is currently awake and alert in no acute distress. He remains quite weak and debilitated. Appetite is poor. He continues to maintain O2 saturations in the low 90s on 6 L/min per nasal cannula. He is currently afebrile. Hemodynamically stable. Chest x-ray can shows continued pulmonary venous congestion with small left-sided pleural effusions and perihilar infiltrates. No new labs today. He is currently in a -2.8 L balance. He remains on diuretics, bronchodilators. The patient is seen today August 09, 2023 in follow-up on the regular medical floor. He is resting comfortably in bed. Awake and alert in no acute distress. Maintaining O2 saturations in the 90s on 5 L high flow nasal cannula. Normal saline at KVO. White count 6.3. Hemoglobin 9.4. Platelets 271. Sodium 130. Potassium 5.0. Bicarb 28. BUN 40. Creatinine 1.01. He is continued on bronchodilators. Oral diuretics. Currently net -3 L balance. Objective - Vital Signs Vital signs: Vital Signs Temp 97.5 F L 08/09/23 07:38 Pulse 73 08/09/23 10:20 Resp 20 08/09/23 07:38 BP 107/69 08/09/23 10:20 Pulse Ox 94 L 08/09/23 07:38 FiO2 40 07/23/23 02:57 Intake & Output 08/08/23 08/09/23 08/09/23 18:59 06:59 18:59 Output Total 1825 1200 400 Balance -1825 -1200 -400 Weight 77 kg Output: Urine 1825 1200 400 Other: Voiding Method Indwelling Catheter Indwelling Catheter Indwelling Catheter # Bowel Movements 1 - Exam GENERAL EXAM: Alert, pleasant 88-year-old male, resting in bed, on 5 L nasal cannula, in no apparent distress. HEAD: Normocephalic. EYES: Normal reaction of pupils, equal size. NOSE: Clear with pink turbinates. THROAT: No erythema or exudates. NECK: No masses, no JVD. CHEST: No chest wall deformity. LUNGS: Equal air entry with crackles in the bilateral bases, left greater than right. CVS: S1 and S2 normal with no audible murmur, regular rhythm. ABDOMEN: No hepatosplenomegaly, normal bowel sounds, no guarding or rigidity. SPINE: No scoliosis or deformity SKIN: No rashes. Skin tears of the right upper extremity. CENTRAL NERVOUS SYSTEM: No focal deficits, tone is normal in all 4 extremities. EXTREMITIES: Multiple areas of ecchymosis. Left hip incision clean dry well- approximated there is no peripheral edema. Peripheral pulses are intact. - Labs CBC & Chem 7: 08/09/23 11:32 08/09/23 11:32 Labs: Abnormal Lab Results - Last 24 Hours (Table) 08/09/23 08/09/23 Range/Units 11:32 11:32 RBC 3.36 L (4.30-5.90) m/uL Hgb 9.4 L (13.0-17.5) gm/dL Hct 30.0 L (39.0-53.0) % RDW 17.1 H (11.5-15.5) % Lymphocytes # 0.6 L (1.0-4.8) k/uL Sodium 130 L (137-145) mmol/L BUN 40 H (9-20) mg/dL Glucose 122 H (74-99) mg/dL Calcium 8.3 L (8.4-10.2) mg/dL Assessment and Plan Assessment: Acute hypoxemic respiratory failure, possibly multifactorial, secondary to acute COPD exacerbation and possible left-sided community-acquired pneumonia and left- sided pleural effusion, possibly parapneumonic. Possibility of a hospital- acquired pathogen cannot be completely ruled out. Patient is currently on 5 L of oxygen nasal cannula and his repeat chest x-ray shows a continued pleural effusions and pulmonary edema and remains on diuretics Acute left lower lobe pneumonia, most likely bacterial infection and the patient procalcitonin level is also elevated. 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 Completed 10 days of vancomycin and Zosyn Acute leukocytosis, possibly secondary to above, recovered, current white count 6.3 Left lower extremity DVT The ultrasound of the lower extremity on the left reveals chronic clot versus partially occlusive thrombus involving the long segment of the left lower extremity. Note that the patient was off his anticoagulants due to his frequent falls and anemia. IVC filter placed July 30, 2023 Frequent falls, with recent left hip femoral neck fracture, status/post left hip cemented unipolar hemiarthroplasty on 07/05/2023 History of fall with multiple left-sided rib fractures and pulmonary contusion History of paroxysmal atrial fibrillation, Eliquis has been stopped, IVC filter in place Acute on chronic kidney disease, creatinine is improved compared to yesterday the patient is recovering from his acute kidney injury Acute on top of chronic anemia with a drop in hemoglobin again at 6.1 on 07/31/2023, status post 3 units of packed RBCs this admission, current hemoglobin 9.4 History of thoracic level wound/cellulitis, isolated organism at that time was MRSA History of hyperlipidemia History of hypertension History of former tobacco dependence Chronic obstructive pulmonary disease History of alcoholism Hematuria 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 Number of minutes spent on the visit: 24.
[2023-08-09] MEDS: FUROSEMIDE 10 MG/ML 2 ML VIAL IV ONE (13:19)
[2023-08-09 13:30] VITALS: PULSE 65; RESP 22
--- NOTE | 2023-08-13 08:30 | P.OP ---
Date of Procedure: 07/30/23 Preoperative Diagnosis: Lower extremity DVT, unable to anticoagulate due to hematuria and falls Postoperative Diagnosis: Same Procedure(s) Performed: Ultrasound-guided right common femoral vein access Right iliac and IVC venogram Placement of inferior vena cava filter under ultrasound and fluoroscopic guidance Anesthesia: local Surgeon: Tank Neal Estimated Blood Loss (ml): 5 Pathology: none sent Condition: stable Disposition: floor Indications for Procedure: 88-year-old gentleman who is currently being treated after a fall who underwent surgery on his hip presents to the Dietary Manager for placement of a an IVC filter. He has been having hematuria causing significant anemia and is unable to undergo anticoagulation at this time. Description of Procedure: After written and informed consent was obtained the patient and all risks benefits and complications were described the patient was brought to the Dietary Manager and laid in a supine position. The area of the groins were prepped and draped in usual sterile fashion. Utilizing ultrasound the right femoral vein was located and shown to be patent and compressible without any visible thrombus. Utilizing ultrasound and Seldinger technique the vein was accessed and a 035 guidewire was placed followed by a 6-Swedish sheath. Catheter was then placed within the inferior vena cava and IVC venogram was obtained demonstrating visualization of the renal veins. A Cook Select filter was then chosen to be placed and the deployment sheath was guided over the guidewire after removal of the 6-Swedish sheath. The filter was then placed just beneath the renal veins and deployed in normal fashion. Once deployed final venogram was obtained demonstrating good placement of the filter without any tilting. All guidewires and catheters were then removed and pressure was held for hemostasis. The area was cleansed and dressings were placed. Patient tolerated procedure well was sent back to the room for recovery.
== END 2023-08-09 14:30 | DRG 871 ==
LOC: EC 21:48 → 3SCARD 07-22 00:57 → 5NMEDONC 07-23 11:56
PROVIDERS: ADMIT Hospitalist; ATTEND Hospitalist
DX: A41.02 Sepsis due to Methicillin resistant Staphylococcus aureus (principal); I50.23 Acute on chronic systolic (congestive) heart failure; J96.21 Acute and chronic respiratory failure with hypoxia; J15.212 Pneumonia due to Methicillin resistant Staphylococcus aureus; E87.20 Acidosis, unspecified; R64 Cachexia; I82.402 Acute embolism and thrombosis of unspecified deep veins of left lower extremity; D62 Acute posthemorrhagic anemia; D68.9 Coagulation defect, unspecified; E87.1 Hypo-osmolality and hyponatremia; N17.9 Acute kidney failure, unspecified; I13.0 Hypertensive heart and chronic kidney disease with heart failure and stage 1 through stage 4 chronic kidney disease, or unspecified chronic kidney disease; I42.8 Other cardiomyopathies; I82.611 Acute embolism and thrombosis of superficial veins of right upper extremity; J44.1 Chronic obstructive pulmonary disease with (acute) exacerbation; J44.0 Chronic obstructive pulmonary disease with (acute) lower respiratory infection; J98.11 Atelectasis; I95.9 Hypotension, unspecified; L89.610 Pressure ulcer of right heel, unstageable; L89.622 Pressure ulcer of left heel, stage 2; R62.7 Adult failure to thrive; F10.21 Alcohol dependence, in remission; N18.30 Chronic kidney disease, stage 3 unspecified; I48.0 Paroxysmal atrial fibrillation; Z68.21 Body mass index [BMI] 21.0-21.9, adult; Z66 Do not resuscitate; E78.5 Hyperlipidemia, unspecified; E86.1 Hypovolemia; S41.111A Laceration without foreign body of right upper arm, initial encounter; I25.10 Atherosclerotic heart disease of native coronary artery without angina pectoris; M21.372 Foot drop, left foot; R31.0 Gross hematuria; R29.6 Repeated falls; I44.7 Left bundle-branch block, unspecified; M47.9 Spondylosis, unspecified; F17.200 Nicotine dependence, unspecified, uncomplicated; Z71.6 Tobacco abuse counseling; Z22.322 Carrier or suspected carrier of Methicillin resistant Staphylococcus aureus; Z79.899 Other long term (current) drug therapy; Z86.711 Personal history of pulmonary embolism; Z87.01 Personal history of pneumonia (recurrent); Z91.81 History of falling; Z96.642 Presence of left artificial hip joint; Z71.3 Dietary counseling and surveillance; S72.002D Fracture of unspecified part of neck of left femur, subsequent encounter for closed fracture with routine healing; W05.0XXD Fall from non-moving wheelchair, subsequent encounter; Z86.14 Personal history of Methicillin resistant Staphylococcus aureus infection
CPT/HCPCS: 36415; 36600; 37191; 71045; 76604; 80048; 80053; 80202; 82272; 82565; 82607; 82728; 82746; 82805; 83540; 83550; 83605; 83735; 83880; 84145; 84484; 85025; 85027; 85379; 85610; 85730; 86850; 86900; 86901; 86920; 87040; 87070; 87205; 87636; 93005; 94640; 94660; 94760; 96361; 96365; 96372; 96375; 99285